=== PATIENT | male | born 1935 | race Caucasian/White ===

== ENCOUNTER → 2018-02-04 10:03 | Outpatient (CLI) | payer MEDICARE, OTHER, SELFPAY ==
[2018-02-04 10:51] LABS: Add Manual Diff / Slide Review NO; Basophils Percent Auto 0.6 % (0-2); Eosinophils Percent Auto 2.4 % (2-4); Hematocrit 39.2 % (41-53); Lymphocytes Percent Auto 19.2 % (25-40); Mean Corpuscular HGB Conc 33.1 % (30-36); Mean Corpuscular Hemoglobin 30.3 PG (26-34); Mean Corpuscular Volume 91.5 fL (80-100); Monocytes Percent Auto 9.8 % (3-14); Neutrophils Absolute Auto 7500 /uL (3000-5900); Platelet Count 247 X10^3/uL (150-400); Red Blood Cell Count 4.29 X10^6/uL (4.5-5.9); Red Cell Distribution Width 13.8 % (11.6-14.8); White Blood Cell Count 11.1 X10^3/uL (4.5-11.0)
[2018-02-04 11:04] LABS: Alanine Aminotransferase 19 IU/L (21-72); Albumin 4.1 g/dL (3.5-5.0); Albumin Globulin Ratio 1.2 (1.0-2.8); Alkaline Phosphatase 60 U/L (38-126); Aspartate Aminotransferase 18 IU/L (17-59); BUN Creatinine Ratio 17.3 (6-22); Bilirubin Total 0.7 mg/dL (0.2-1.3); Blood Urea Nitrogen 19 mg/dL (9-20); Calcium 9.3 mg/dL (8.4-10.2); Carbon Dioxide 29 mmol/L (22-32); Chloride 101 mmol/L (98-107); Cholesterol 141 mg/dL (140-199); Estimated Glomerular Filt Rate > 60.0 mL/min (>60); Globulin 3.5 g/dL (1.7-4.1); Glucose 120 mg/dL (80-110); HDL Cholesterol 38 mg/dL (40-60); HEMOLYSIS < 15 (0-50); LDL Cholesterol Calculated 86 mg/dL (<100); Potassium 4.9 mmol/L (3.4-5.1); Sodium 140 mmol/L (137-145); Total Protein 7.6 g/dL (6.3-8.2); Triglycerides 84 mg/dL (35-150)
[2018-02-04 11:38] LABS: Thyroid Stimulating Hormone 2.81 uIU/mL (0.47-4.68)
== END ==
PROVIDERS: PCP Family Medicine; Visit Provider Family Medicine
DX: E78.2 Mixed hyperlipidemia (principal); I10 Essential (primary) hypertension; N18.3 Chronic kidney disease, stage 3 (moderate)
CPT/HCPCS: 36415; 80053; 80061; 84443; 85025

== ENCOUNTER → 2018-02-25 16:38 | Outpatient (CLI) | payer MEDICARE, OTHER, SELFPAY ==
--- NOTE | 2018-02-25 16:43 | DI.RAD.S_ITS ---
PROCEDURE: XR CHEST 2V INDICATIONS: Shortness of breath TECHNIQUE: 2 views of the chest were acquired. COMPARISON: None. FINDINGS: Surgical changes and devices: Surgical clips project over the mediastinum Lungs and pleura: No pleural effusions or pneumothorax. Bilateral bibasilar, perihilar and diffuse reticular pulmonary opacities are noted, increased from prior exam. There are increased hazy opacities projecting over the right upper lobe and right lung base. There is prominence of the pulmonary vasculature. Mediastinum: Mediastinal contours are normal. Heart size is normal. Bones and chest wall: No acute osseous abnormality. Moderate multilevel degenerative changes of the thoracic spine. IMPRESSION: Findings consistent with mild pulmonary edema. Increased hazy opacities of the right upper lobe and right lung base are favored to represent atelectasis, less likely pneumonia. Dictated by: Carlos Reyes M.D. on 02/25/2018 at 18:22 Approved by: Carlos Reyes M.D. on 02/25/2018 at 18:25
== END ==
PROVIDERS: Family Provider Family Medicine; PCP Family Medicine; Visit Provider Physician Assistant
DX: R06.02 Shortness of breath (principal)
CPT/HCPCS: 71046

== ENCOUNTER → 2019-04-13 09:33 | Outpatient (CLI) | payer MEDICARE, OTHER, SELFPAY ==
[2019-04-13 10:20] LABS: Add Manual Diff / Slide Review NO; Basophils Absolute Auto 100 /uL (0-100); Basophils Percent Auto 0.9 % (0-2); Eosinophils Absolute Auto 300 /uL (0-450); Eosinophils Percent Auto 3.7 % (2-4); Hematocrit 41.5 % (41-53); Lymphocytes Absolute Auto 2000 /uL (1100-4500); Lymphocytes Percent Auto 21.2 % (25-40); Mean Corpuscular HGB Conc 33.8 % (30-36); Mean Corpuscular Hemoglobin 31.7 PG (26-34); Mean Corpuscular Volume 93.8 fL (80-100); Monocytes Absolute Auto 900 /uL (0-900); Monocytes Percent Auto 9.7 % (3-14); Neutrophils Absolute Auto 6100 /uL (1500-7000); Neutrophils Percent Auto 64.5 % (50-75); Platelet Count 217 X10^3/uL (150-400); Red Blood Cell Count 4.43 X10^6/uL (4.5-5.9); Red Cell Distribution Width 13.1 % (11.6-14.8); White Blood Cell Count 9.4 X10^3/uL (4.5-11.0)
[2019-04-13 10:57] LABS: Alanine Aminotransferase 13 IU/L (<50); Albumin 4.1 g/dL (3.5-5.0); Albumin Globulin Ratio 1.2 (1.0-2.8); Alkaline Phosphatase 63 U/L (38-126); Aspartate Aminotransferase 22 IU/L (17-59); Bilirubin Total 0.7 mg/dL (0.2-1.3); Blood Urea Nitrogen 24 mg/dL (9-20); Calcium 9.7 mg/dL (8.4-10.2); Carbon Dioxide 29 mmol/L (22-32); Chloride 98 mmol/L (98-107); Cholesterol 158 mg/dL (140-199); Estimated Glomerular Filt Rate 58.1 mL/min (>60); Globulin 3.3 g/dL (1.7-4.1); Glucose 115 mg/dL (80-110); HDL Cholesterol 48 mg/dL (40-60); HEMOLYSIS < 15 (0-50); LDL Cholesterol Calculated 94 mg/dL (<100); Potassium 5.2 mmol/L (3.4-5.1); Sodium 138 mmol/L (137-145); Total Protein 7.4 g/dL (6.3-8.2); Triglycerides 82 mg/dL (35-150)
[2019-04-13 11:09] LABS: TSH w/ Reflex to FT4 2.69 uIU/mL (0.47-4.68)
== END ==
PROVIDERS: Family Provider Family Medicine; PCP Family Medicine; Referring Provider Family Medicine; Visit Provider Family Medicine
DX: E78.2 Mixed hyperlipidemia (principal); I10 Essential (primary) hypertension; J44.1 Chronic obstructive pulmonary disease with (acute) exacerbation; N18.3 Chronic kidney disease, stage 3 (moderate)
CPT/HCPCS: 36415; 80053; 80061; 84443; 85025

== ENCOUNTER → 2020-05-21 08:27 | Outpatient (CLI) | payer MEDICARE, OTHER, SELFPAY ==
[2020-05-21] MEDS: COVID-19 VACC, Ad26(JANSSEN)/PF 0.5 ML IM (08:35)
== END ==
PROVIDERS: Family Provider Family Medicine; PCP Family Medicine; Visit Provider Internal Medicine
DX: Z23 Encounter for immunization (principal)
CPT/HCPCS: 0031A; 91303

== ENCOUNTER → 2020-12-24 08:25 | Outpatient (CLI) | payer MEDICARE, OTHER, SELFPAY ==
[2020-12-24 11:11] LABS: COVID19 -Nasal RAPID Negative (Negative)
== END ==
PROVIDERS: Family Provider Family Medicine; PCP Family Medicine; Visit Provider Physician Assistant
DX: Z01.812 Encounter for preprocedural laboratory examination (principal); Z20.822 Contact with and (suspected) exposure to COVID-19
CPT/HCPCS: 87635; C9803

== ENCOUNTER 2020-12-25 11:00 | Day surgery (SDC) | payer MEDICARE, OTHER, SELFPAY ==
[2020-12-25 12:57] VITALS: BP 148/73; PULSE 53; RESP 18; TEMP 36.8; O2SAT 98; BMI 38.7
[2020-12-25] MEDS: PROPARACAINE 0.5% OPHTH SOL 2 DROPS EYE-OP (13:07)
[2020-12-25] MEDS: CATARACT EYE COMPOUND (10 DROPS/SYRINGE) 3 DROPS EYE-OP ×3 (13:08→13:16)
--- NOTE | 2020-12-25 13:09 | PM.PREOP ---
Pre-operative Note Interval Note History & Physical reviewed/Exam performed by Physician: Yes Changes to H&P: No
--- NOTE | 2020-12-25 13:10 | PM.OP.1 ---
Operative Date/Time/Diagnoses Pre-op diagnosis: Nuclear Cataract Left eye Post-op diagnosis: same Procedure & Clinicians Same procedure as scheduled: Yes Surgeon: Chao Langford Anesthesia Type: MAC +/- and Sedation Operative Notes Procedure in detail: Patient brought to the operating suite. Tetracaine drops placed in the left eye. Patient was prepped and draped in sterile manner. Wire lid speculum was placed in the eye. Betadine drops were placed on the eye. This was irrigated. Lidocaine jelly was placed on the eye. A paracentesis port was created with a side-port blade. 0.1 mL 1% preservative free lidocaine was injected into the anterior chamber. The anterior chamber was deepened with viscoelastic. 2.6 mm keratome was used to create a temporal clear corneal incision. Cystotome and Utrata forceps were used to create continuous tear capsulorrhexis. Balanced salt solution was used to hydro dissect the nucleus. The phacoemulsification handpiece was inserted and the nucleus was removed using the stop and chop technique. The irrigation aspiration handpiece was inserted and the remaining cortex was removed. Anterior chamber was deepened with viscoelastic. An [place] DIB00 intraocular lens with a power of 22.0 was injected into the capsular bag. Irrigation aspiration handpiece was inserted and the remaining viscoelastic was removed. Incision was hydrated with balanced salt solution and found to be leak free with pressure with Weck-Rosanna sponges. 0.1 mL Vigamox injected anterior chamber. 0.3 mL Kenalog 10 mg was injected subconjunctivally. Lid speculum was removed. The patient left the operating room in excellent condition. Complications: none Post-operative Condition: stable Disposition: same day surgery
[2020-12-25] MEDS: MOXIFLOXACIN INJ 4 MG/0.8 ML VIAL 0.5 MG EYE-OP (13:36)
[2020-12-25] MEDS: HYALURONATE SODIUM 30 MG-10 MG/ML SYRINGES 1 BOX INTRAOCULA (13:36)
[2020-12-25] MEDS: PHENYLEPHRINE/LIDOCAINE VIAL (OR) 0.2 ML EYE-OP (13:38)
[2020-12-25] MEDS: TETRACAINE 0.5% OPHTH DROPS 4 ML 2 DROPS EYE-OP (13:38)
[2020-12-25] MEDS: LIDOCAINE 2% (GLYDO) 6 ML GEL TOP (13:38)
[2020-12-25] MEDS: BALANCED SALT IRRIG SOLN NO.2 500 ML, EPINEPHrine 1 MG IRR (13:39)
[2020-12-25] MEDS: TRIAMCINOLONE 50 MG/5 ML VIAL INJ (13:39)
[2020-12-25 13:56] VITALS: BP 143/63; PULSE 60; RESP 20; TEMP 36.4; O2SAT 97
--- NOTE | 2020-12-25 13:59 | SUR.PHASEII ---
iV IN LEFT HAND DCD SITE CLEAR. pT GIVEN ALL DC INSTRUCTIONS AND VERBALIZES UNDERSTANDING, DENIES PAIN OR NAUSEA, vss, A&O
--- NOTE | 2020-12-25 14:17 | SUR.PHASEII ---
1415-Pt dcd in stable condition with no complaints, VSS, pt has all belongings and dc instructions given and pt verbalizes understanding. Pt up and ambulating gait steady.
== END 2020-12-25 14:15 | disposition home or self-care (01) ==
PROVIDERS: Family Provider Family Medicine; PCP Family Medicine; Referring Provider Ophthalmology; Visit Provider Ophthalmology
PROC: (CPT 66984; principal; 2020-12-25 13:15)
DX: H25.12 Age-related nuclear cataract, left eye (principal); I10 Essential (primary) hypertension; E78.00 Pure hypercholesterolemia, unspecified; J44.9 Chronic obstructive pulmonary disease, unspecified; F17.210 Nicotine dependence, cigarettes, uncomplicated
CPT/HCPCS: 66984; J0171; J2250; J3301

== ENCOUNTER → 2021-01-07 11:33 | Outpatient (CLI) | payer MEDICARE, OTHER, SELFPAY ==
[2021-01-07 14:35] LABS: COVID19 -Nasal RAPID Negative (Negative)
== END ==
PROVIDERS: Family Provider Family Medicine; PCP Family Medicine; Visit Provider Nurse Practitioner Family
DX: Z20.822 Contact with and (suspected) exposure to COVID-19 (principal); Z01.812 Encounter for preprocedural laboratory examination
CPT/HCPCS: 87635; C9803

== ENCOUNTER 2021-01-08 10:11 | Day surgery (SDC) | payer MEDICARE, OTHER, SELFPAY ==
[2021-01-08] MEDS: CATARACT EYE COMPOUND (10 DROPS/SYRINGE) 3 DROPS EYE-OP (10:39)
[2021-01-08] MEDS: PROPARACAINE 0.5% OPHTH SOL 2 DROPS EYE-OP (10:40)
[2021-01-08 10:41] VITALS: BP 156/80; PULSE 57; RESP 16; TEMP 36.8; O2SAT 95; BMI 38.7
--- NOTE | 2021-01-08 11:40 | PM.PREOP ---
Pre-operative Note Interval Note History & Physical reviewed/Exam performed by Physician: Yes Changes to H&P: No
--- NOTE | 2021-01-08 11:41 | PM.OP.1 ---
Operative Date/Time/Diagnoses Pre-op diagnosis: Nuclear cataract right eye Procedure & Clinicians Procedure: Cataract Surgery Same procedure as scheduled: Yes Surgeon: Chao Langford Anesthesia Type: MAC +/- and Sedation Operative Notes Procedure in detail: Patient brought to the operating suite. Tetracaine drops placed in the right eye. Patient was prepped and draped in sterile manner. Wire lid speculum was placed in the eye. Betadine drops were placed on the eye. This was irrigated. Lidocaine jelly was placed on the eye. A paracentesis port was created with a side-port blade. 0.1 mL 1% preservative free lidocaine was injected into the anterior chamber. The anterior chamber was deepened with viscoelastic. 2.6 mm keratome was used to create a temporal clear corneal incision. Cystotome and Utrata forceps were used to create continuous tear capsulorrhexis. Balanced salt solution was used to hydro dissect the nucleus. The phacoemulsification handpiece was inserted and the nucleus was removed using the stop and chop technique. The irrigation aspiration handpiece was inserted and the remaining cortex was removed. Anterior chamber was deepened with viscoelastic. An [place] DIB00 intraocular lens with a power of 22.5 was injected into the capsular bag. Irrigation aspiration handpiece was inserted and the remaining viscoelastic was removed. Incision was hydrated with balanced salt solution and found to be leak free with pressure with Weck-Rosanna sponges. 0.1 mL Vigamox injected anterior chamber. 0.3 mL Kenalog 10 mg was injected subconjunctivally. Lid speculum was removed. The patient left the operating room in excellent condition. Complications: none Post-operative Condition: stable Disposition: same day surgery
[2021-01-08] MEDS: HYALURONATE SODIUM 30 MG-10 MG/ML SYRINGES 1 BOX INTRAOCULA (12:00)
[2021-01-08] MEDS: MOXIFLOXACIN INJ 4 MG/0.8 ML VIAL 0.5 MG EYE-OP (12:00)
[2021-01-08] MEDS: TRIAMCINOLONE 50 MG/5 ML VIAL INJ (12:01)
[2021-01-08] MEDS: TETRACAINE 0.5% OPHTH DROPS 4 ML 2 DROPS EYE-OP (12:01)
[2021-01-08] MEDS: BALANCED SALT IRRIG SOLN NO.2 500 ML, EPINEPHrine 1 MG IRR (12:01)
[2021-01-08] MEDS: PHENYLEPHRINE/LIDOCAINE VIAL (OR) 0.2 ML EYE-OP (12:01)
[2021-01-08] MEDS: LIDOCAINE 2% (GLYDO) 6 ML GEL TOP (12:02)
[2021-01-08 12:17] VITALS: BP 112/73; PULSE 57; RESP 16; TEMP 36.1; O2SAT 97
== END 2021-01-08 12:34 | disposition home or self-care (01) ==
PROVIDERS: Family Provider Family Medicine; PCP Family Medicine; Referring Provider Ophthalmology; Visit Provider Ophthalmology
PROC: (CPT 66984; principal; 2021-01-08 12:15)
DX: H25.11 Age-related nuclear cataract, right eye (principal); I10 Essential (primary) hypertension; J44.9 Chronic obstructive pulmonary disease, unspecified; F17.210 Nicotine dependence, cigarettes, uncomplicated; E66.9 Obesity, unspecified
CPT/HCPCS: 66984; J0171; J2250; J3301

== ENCOUNTER 2021-06-11 08:22 | Inpatient (IN) | payer MEDICARE, OTHER, SELFPAY ==
[2021-06-11] VITALS (12 sets, daily range): BP systolic 114–149; BP diastolic 60–71; PULSE 33–76; RESP 18–26; TEMP 36.4–36.6; O2SAT 78–97; BMI 38.7
--- NOTE | 2021-06-11 08:40 | ED_ITS ---
HPI - SOB/Dyspnea General Chief Complaint: Shortness of Breath/Dyspnea Stated Complaint: Trouble breathing Time Seen by Provider: 06/11/21 08:39 Source: patient and old records reviewed Mode of arrival: Wheelchair Limitations: no limitations History of Present Illness HPI Narrative: This is an 85-year-old male with known COPD, CKD, hypertension and dyslipidemia and prior left lobe upper lobectomy in 2003 who comes emergency department with 10 days of worsening shortness of breath, he has had productive sputum which has gone from his normal clear to green discoloration for the past 5 or 6 days his breathing has gotten even worse. Patient denies fevers or chills. He denies any chest pain or pressure. He states he can normally lie flat on his back but he can typically lie on his left side and read little bit more normally which he states has not changed. He denies any new swelling in his extremities. He denies any diaphoresis. No nausea or vomiting. No new urinary symptoms. He has chronic constipation but has been stooling. He has not had any new medication changes. Patient had a left upper lobectomy in 2003 for lung cancer, he does not have any known cardiac history. Prior cardiac stents. No known drug allergies. He does continue to smoke about 1 pack per day, he drinks 3-5 alcoholic drinks daily, no illicit. He is on aspirin, metoprolol, lisinopril and atorvastatin he uses albuterol and fluticasone inhaled. Used some albuterol this morning which was mildly helpful. His primary care is Dr. Zaman. He does not follow any specialty physicians. Related Data Home Medications Medication Instructions Recorded Confirmed ibuprofen 200 mg tablet 200 mg PO Q8HP #0 04/02/12 02/05/21 aspirin 81 mg chewable tablet 81 mg PO DAILY tab 12/17/17 02/05/21 glucosamine sulfate 500 mg tablet 500 mg PO BID 02/25/18 02/05/21 (Glucosamine) Previous Rx's Medication Instructions Recorded Disabled Parking Permit ea #1 05/06/17 atorvastatin 20 mg tablet (Lipitor) 20 mg PO HS #90 tab 11/29/20 fluticasone 250 mcg-salmeterol 50 See Rx Instructions .ROUTE 11/29/20 mcg/dose blistr powdr for .COMPLEX #60 ea inhalation (Wixela Inhub) lisinopril 40 mg tablet 40 mg PO BID #180 tab 11/29/20 metoprolol tartrate 100 mg tablet 100 mg PO BID #180 tab 11/29/20 (Lopressor) albuterol sulfate 90 mcg/actuation 2 puff INHALATION Q4H #8.5 g 02/05/21 aerosol inhaler (Ventolin HFA) Allergies Allergy/AdvReac Type Severity Reaction Status Date / Time No Known Drug Allergies Allergy Verified 02/05/21 11:27 Review of Systems Review of Systems ROS Unobtainable: All systems reviewed & are unremarkable except as noted in HPI and below Patient History Medical History Chronic back pain (~1959) Gout (~2011) History of urinary incontinence Lung cancer (~2007) Pancreatitis (~2005) Vision disorder Surgical History Anesthesia History of lung surgery (~2007) Family History Father Heart disease Grandmother Age: 81 Ovarian cancer, unspecified laterality Mother Diabetes mellitus Sister No problems noted. Social History marital status: household members: significant other Smoking Status: Current every day smoker alcohol intake: current substance use type: does not use Smoking Status: Current every day smoker alcohol intake frequency: 3 or more drinks per day Substance Use Type: does not use Exam Narrative Exam Narrative: GENERAL: Alert and oriented x three, obese male in moderate distress. HEENT: Head normocephalic, atraumatic, EOMI, pupils reactive, face symmetric, moist mucous membranes NECK: Supple, full range of motion CARDIOVASCULAR: Regular rate and rhythm without murmurs, rubs or gallops. RESPIRATORY: Breath sounds slightly decreased, patient has some mild wheeze on the left, no rales or rhonchi. Mild tachypnea. Patient speaks in 5-6 word sentences. Patient is on nasal cannula but arrived and was 82% on room air initially. ABDOMEN: Soft, nontender. Normoactive bowel sounds all 4 quadrants. No guarding or rebound, rigidity, no mass : No CVA tenderness EXTREMITIES: Normal range of motion, no clubbing or edema in lower extremities. Neurovascularly intact NEUROLOGICAL: Cranial nerves II through XII grossly intact. Moving all extremities SKIN: Warm, dry, no petechiae, no rashes or lesions. Initial Vital Signs Initial Vital Signs: Vital Signs Pulse Rate 33 L 06/11/21 08:28 Pulse Oximetry 78 L 06/11/21 08:28 Course Orders Ordered: Acetaminophen (Acetaminophen 325 Mg Tablet) 650 mg PO Q6HR [facility] Last Admin: 06/11/21 18:13 Dose: 650 mg Documented by: Admin: 06/11/21 12:04 Dose: 650 mg Documented by: KEATON Albuterol (Albuterol 2.5 Mg/3 Ml Neb (Adult)) 2.5 mg INH [id number] PRN PRN Reason: Shortness Of Breath Or Wheezing Albuterol/Ipratropium (Albuterol/Ipratropium 3 Ml Ampul) 3 ml INH [id number] [facility] Last Admin: 06/11/21 17:31 Dose: Not Given Documented by: FLAQUITA Aspirin (Aspirin 81 Mg Chew Tab) 81 mg PO DAILY [facility] Last Admin: 06/11/21 12:04 Dose: 81 mg Documented by: KEATON Atorvastatin Calcium (Atorvastatin 20 Mg Tablet) 20 mg PO BEDTIME [facility] Calcium Carbonate (Calcium Carbonate 500 Mg Tab) 1,000 mg PO Q4HR PRN PRN Reason: Dyspepsia Docusate Sodium (Docusate 100 Mg Capsule) 100 mg PO BID [facility] Enoxaparin Sodium (Enoxaparin 40 Mg/0.4 Ml Syringe) 40 mg SUBCUT DAILY [facility] Last Admin: 06/11/21 12:04 Dose: 40 mg Documented by: KEATON Levofloxacin (Levaquin) 750 mg in 150 mls @ 100 mls/hr IV Q24H [facility] Lisinopril (Lisinopril 20 Mg Tablet) 40 mg PO BID [facility] Methylprednisolone (Methylprednisolone 125 Mg/2 Ml Vial) 60 mg IV BID [facility] Metoprolol Tartrate (Metoprolol Ir 50 Mg Tablet) 100 mg PO BID [facility] Naloxone HCl (Naloxone 0.4 Mg/Ml Vial) 0.2 mg IV Q2MIN PRN PRN Reason: Opiate Reversal Tramadol HCl (Tramadol 50 Mg Tablet) 50 mg PO Q4H PRN PRN Reason: Pain, Moderate (4-6) Discontinued Medications Albuterol/Ipratropium (Albuterol/Ipratropium 3 Ml Ampul) 3 ml INH NOW ONE Stop: 06/11/21 08:53 Last Admin: 06/11/21 09:20 Dose: 3 ml Documented by: CTRMICHAEL Furosemide (Furosemide 100 Mg/10 Ml Vial) 60 mg IV NOW ONE Stop: 06/11/21 09:50 Last Admin: 06/11/21 09:52 Dose: 60 mg Documented by: JUAN CARLOS Furosemide (Furosemide 40 Mg/4 Ml Vial) 40 mg IV NOW ONE Stop: 06/11/21 13:50 Last Admin: 06/11/21 14:08 Dose: 40 mg Documented by: CTRANTONIO Levofloxacin (Levaquin) 750 mg in 150 mls @ 100 mls/hr IV NOW ONE Stop: 06/11/21 11:37 Last Infusion: 06/11/21 12:47 Dose: 0 mls/hr Documented by: Admin: 06/11/21 10:30 Dose: 100 mls/hr Documented by: DON Methylprednisolone (Methylprednisolone 125 Mg/2 Ml Vial) 125 mg IV NOW ONE Stop: 06/11/21 08:53 Last Admin: 06/11/21 09:10 Dose: 125 mg Documented by: ACE Potassium Chloride (Potassium Chloride 20 Meq/15 Ml Udc) 20 meq PO NOW ONE Stop: 06/11/21 13:50 Last Admin: 06/11/21 14:05 Dose: 20 meq Documented by: KEATON Reevaluation(s) Reevaluation #1: Patient feels much better after O2. He did have 1 DuoNeb, some Lasix here in the department continues to feel better E sitting up on the edge of the bed. He would like to return home but discussed he is still requiring oxygen he is agreeable to admission after this. He did note he drinks several alcoholic drinks nightly. He denies any history of withdrawals but we discussed if he has any symptoms to please let us know. Time: 10:00 Consultations Consultation #1: Dr. Jennings accepts for observation discussed will cover him with Levaquin after discussion. Treat with Lasix work on figuring out if he has COPD flare with bronchitis and or CHF. He will see patient in the department. Time: 10:09 Vital Signs Vital signs: Vital Signs - 8 hr 04/05/22 08:28 06/11/21 08:30 06/11/21 08:44 Temperature Pulse Rate 33 L 74 Respiratory Rate Blood Pressure Pulse Oximetry 78 L 84 L 97 06/11/21 08:47 06/11/21 08:54 06/11/21 09:20 Temperature 97.8 F Pulse Rate 66 64 Respiratory Rate 23 26 H Blood Pressure 149/66 H 149/66 H Pulse Oximetry 96 96 94 MDM - SOB/Dyspnea Lab Data Result diagrams: 06/11/21 08:45 06/11/21 08:45 Labs: Lab Results 06/11/21 06/11/21 06/11/21 Range/Units 08:40 08:45 08:45 WBC 16.1 H (4.5-11.0) X10^3/uL RBC 4.25 L (4.5-5.9) X10^6/uL Hgb 13.0 L (13.5-17.5) g/dL Hct 39.4 L (41-53) % MCV 92.6 (80-100) fL MCH 30.7 (26-34) PG MCHC 33.1 (30-36) % RDW 13.4 (11.6-14.8) % Plt Count 245 (150-400) X10^3/uL Neut % (Auto) 81.6 H (50-75) % Lymph % (Auto) 7.4 L (25-40) % [place] % (Auto) 10.3 (3-14) % Eos % (Auto) 0.3 L (2-4) % Baso % (Auto) 0.4 (0-2) % Neut # (Auto) 63124 H (2889-5531) /uL Lymph # (Auto) 1200 (8876-2820) /uL [place] # (Auto) 1700 H (0-900) /uL Eos # (Auto) 0 (0-450) /uL Baso # (Auto) 100 (0-100) /uL PT 13.1 H (10.1-12.7) SECONDS INR 1.2 (0.9-1.3) APTT 30 (26.4-36.2) SECONDS Sodium (137-145) mmol/L Potassium (3.4-5.1) mmol/L Chloride (98-107) mmol/L Carbon Dioxide (22-32) mmol/L BUN (9-20) mg/dL Creatinine (0.66-1.25) mg/dL Estimated GFR (>60) mL/min BUN/Creatinine Ratio (6-22) Glucose (80-110) mg/dL Lactate (0.7-2.1) mmol/L Calcium (8.4-10.2) mg/dL Magnesium (1.6-2.3) mg/dL Total Bilirubin (0.2-1.3) mg/dL AST (17-59) IU/L ALT (<50) IU/L Alkaline Phosphatase (38-126) U/L Total Creatine Kinase (55-170) U/L CK-MB (CK-2) (<2.37) ng/mL CK-MB (CK-2) Rel Index (1.5-5.0) % Troponin I (0.01-0.034) ng/mL NT-Pro-B Natriuret Pep (<450) pg/mL Total Protein (6.3-8.2) g/dL Albumin (3.5-5.0) g/dL Globulin (1.7-4.1) g/dL Albumin/Globulin Ratio (1.0-2.8) Procalcitonin (<0.5) ng/mL SARS-CoV-2 (PCR) Negative (Negative) 06/11/21 06/11/21 06/11/21 Range/Units 08:45 08:45 08:45 WBC (4.5-11.0) X10^3/uL RBC (4.5-5.9) X10^6/uL Hgb (13.5-17.5) g/dL Hct (41-53) % MCV (80-100) fL MCH (26-34) PG MCHC (30-36) % RDW (11.6-14.8) % Plt Count (150-400) X10^3/uL Neut % (Auto) (50-75) % Lymph % (Auto) (25-40) % [place] % (Auto) (3-14) % Eos % (Auto) (2-4) % Baso % (Auto) (0-2) % Neut # (Auto) (2776-9397) /uL Lymph # (Auto) (3446-3016) /uL [place] # (Auto) (0-900) /uL Eos # (Auto) (0-450) /uL Baso # (Auto) (0-100) /uL PT (10.1-12.7) SECONDS INR (0.9-1.3) APTT (26.4-36.2) SECONDS Sodium 138 (137-145) mmol/L Potassium 4.7 (3.4-5.1) mmol/L Chloride 98 (98-107) mmol/L Carbon Dioxide 30 (22-32) mmol/L BUN 33 H (9-20) mg/dL Creatinine 1.46 H (0.66-1.25) mg/dL Estimated GFR 46.1 L (>60) mL/min BUN/Creatinine Ratio 22.6 H (6-22) Glucose 112 H (80-110) mg/dL Lactate 1.3 (0.7-2.1) mmol/L Calcium 9.4 (8.4-10.2) mg/dL Magnesium 1.6 (1.6-2.3) mg/dL Total Bilirubin 1.1 (0.2-1.3) mg/dL AST 26 (17-59) IU/L ALT 13 (<50) IU/L Alkaline Phosphatase 72 (38-126) U/L Total Creatine Kinase 161 (55-170) U/L CK-MB (CK-2) 3.30 H (<2.37) ng/mL CK-MB (CK-2) Rel Index 2.0 (1.5-5.0) % Troponin I < 0.012 (0.01-0.034) ng/mL NT-Pro-B Natriuret Pep 2460 H (<450) pg/mL Total Protein 8.2 (6.3-8.2) g/dL Albumin 4.3 (3.5-5.0) g/dL Globulin 3.9 (1.7-4.1) g/dL Albumin/Globulin Ratio 1.1 (1.0-2.8) Procalcitonin 0.09 (<0.5) ng/mL SARS-CoV-2 (PCR) (Negative) Imaging Data Chest x-ray: Radiologist's Impression: [address] [address] XRay Report Signed Patient: Todd Angel MR#: [id number] : 1935 Acct:[id number] Age/Sex: 85 / M Date of Service: 06/11/21 Loc: ED Accession Number: [id number] ?? Procedure: XR chest 1V Ordering Provider: Tita Lao D.O. PROCEDURE:? XR CHEST 1V ? INDICATIONS:? Short of breath ? TECHNIQUE:? One view of the chest was acquired.? ? COMPARISON:? [facility], CR, CHEST 2 VIEW, 10/29/2015, 13:07.? [facility], CR, CHEST 1 VIEW, 04/25/2016, 12:45.? [facility], CR, XR CHEST 2V, 02/25/2018, 17:06. ? FINDINGS:? ? Surgical changes and devices:? Mediastinal clips are seen. ? Lungs and pleura:? On this semiupright portable chest examination, no large pneumothorax or large pleural effusions are seen.? Mild generalized interstitial prominence can seen. ? Mediastinum:? Mediastinal contours appear normal.? Heart size is moderately enlarged.? Atherosclerotic calcification of the aortic arch is noted.? ? Bones and chest wall:? No suspicious bony lesions.? Age-appropriate bony degenerative changes are seen.? Left shoulder calcific tendinopathy can be seen. ? ? ? IMPRESSION:? Cardiomegaly and interstitial prominence can be seen. Please correlate with patient presentation, physical examination findings, and laboratory values for congestive heart failure. ? ? Postoperative and degenerative changes are seen.? ? ? Dictated by: Moustapha Jeong M.D. on 06/11/2021 at 8:14 ? ? Approved by: Moustapha Jeong M.D. on 06/11/2021 at 8:15 ECG Data Attestation: I personally reviewed and interpreted this ECG as follows: Prior ECG tracings: not available for review Interpretation: Sinus rhythm rate of 72 [place] 194 QRS of 90 and QTC 431. No acute ST elevation or depression noted. MDM Narrative Medical decision making narrative: This is an 85-year-old male comes emergency department with complaint of worsening shortness of breath. Patient has had increasing green productive sputum he does have a white count of 16 but also has some changes on chest x-ray and elevated BNP consistent with CHF. Creatinine although he normally has a slightly decreased GFR. Was hypoxic upon arrival his normal O2 sat is usually low 90s he does not have any home O2. He has been on Lasix in the past but not persistently. He has cardiac and COPD history and patient was given dose of Lasix, syndrome Medrol and DuoNeb in the department. Chest x-ray does not show clear pneumonia but with elevated white count and greenish sputum was covered with antibiotics. Discussed antibiotic choice with primary care they elect for Levaquin. Dr. Jennings his physician accepts for observation. Discharge Plan Departure Patient Disposition: Admitted as Observation Clinical Impression: CHF (congestive heart failure), COPD (chronic obstructive pulmonary disease), Acute respiratory failure with hypoxia Admit Date/Time: 06/11/21 10:09 Admit Provider: Jeffrey Jennings
--- NOTE | 2021-06-11 08:41 | DI.RAD.S_ITS ---
PROCEDURE: XR CHEST 1V INDICATIONS: Short of breath TECHNIQUE: One view of the chest was acquired. COMPARISON: [facility], , CHEST 2 VIEW, 10/29/2015, 13:07. [facility], , CHEST 1 VIEW, 04/25/2016, 12:45. [facility], , XR CHEST 2V, 02/25/2018, 17:06. FINDINGS: Surgical changes and devices: Mediastinal clips are seen. Lungs and pleura: On this semiupright portable chest examination, no large pneumothorax or large pleural effusions are seen. Mild generalized interstitial prominence can seen. Mediastinum: Mediastinal contours appear normal. Heart size is moderately enlarged. Atherosclerotic calcification of the aortic arch is noted. Bones and chest wall: No suspicious bony lesions. Age-appropriate bony degenerative changes are seen. Left shoulder calcific tendinopathy can be seen. IMPRESSION: Cardiomegaly and interstitial prominence can be seen. Please correlate with patient presentation, physical examination findings, and laboratory values for congestive heart failure. Postoperative and degenerative changes are seen. Dictated by: Moustapha Jeong M.D. on 06/11/2021 at 8:14 Approved by: Moustapha Jeong M.D. on 06/11/2021 at 8:15
[2021-06-11 08:56] LABS: Add Manual Diff / Slide Review NO; Basophils Absolute Auto 100 /uL (0-100); Basophils Percent Auto 0.4 % (0-2); Eosinophils Absolute Auto 0 /uL (0-450); Eosinophils Percent Auto 0.3 % (2-4); Hematocrit 39.4 % (41-53); Lymphocytes Absolute Auto 1200 /uL (1100-4500); Lymphocytes Percent Auto 7.4 % (25-40); Mean Corpuscular HGB Conc 33.1 % (30-36); Mean Corpuscular Hemoglobin 30.7 PG (26-34); Mean Corpuscular Volume 92.6 fL (80-100); Monocytes Absolute Auto 1700 /uL (0-900); Monocytes Percent Auto 10.3 % (3-14); Neutrophils Absolute Auto 13100 /uL (1500-7000); Neutrophils Percent Auto 81.6 % (50-75); Platelet Count 245 X10^3/uL (150-400); Red Blood Cell Count 4.25 X10^6/uL (4.5-5.9); Red Cell Distribution Width 13.4 % (11.6-14.8); White Blood Cell Count 16.1 X10^3/uL (4.5-11.0)
[2021-06-11 09:10] LABS: INR 1.2 (0.9-1.3); Prothrombin Time 13.1 SECONDS (10.1-12.7)
[2021-06-11] MEDS: methylPREDNISolone 125 MG/2 ML VIAL IV (09:10)
[2021-06-11 09:13] LABS: PTT Partial Thromboplastin Tim 30 SECONDS (26.4-36.2)
[2021-06-11 09:17] LABS: Creatine Kinase 161 U/L (55-170); Lactate (Lactic Acid) 1.3 mmol/L (0.7-2.1); Magnesium 1.6 mg/dL (1.6-2.3)
[2021-06-11 09:18] LABS: Alanine Aminotransferase 13 IU/L (<50); Albumin 4.3 g/dL (3.5-5.0); Albumin Globulin Ratio 1.1 (1.0-2.8); Alkaline Phosphatase 72 U/L (38-126); Aspartate Aminotransferase 26 IU/L (17-59); BUN Creatinine Ratio 22.6 (6-22); Bilirubin Total 1.1 mg/dL (0.2-1.3); Blood Urea Nitrogen 33 mg/dL (9-20); Calcium 9.4 mg/dL (8.4-10.2); Carbon Dioxide 30 mmol/L (22-32); Chloride 98 mmol/L (98-107); Estimated Glomerular Filt Rate 46.1 mL/min (>60); Globulin 3.9 g/dL (1.7-4.1); Glucose 112 mg/dL (80-110); HEMOLYSIS < 15 (0-50); Potassium 4.7 mmol/L (3.4-5.1); Sodium 138 mmol/L (137-145); Total Protein 8.2 g/dL (6.3-8.2)
[2021-06-11] MEDS: ALBUTEROL/IPRATROPIUM 3 ML AMPUL INH ×2 (09:20→20:30)
[2021-06-11 09:26] LABS: COVID19 -Nasal RAPID Negative (Negative)
[2021-06-11 09:30] LABS: NT-proBNP (BNP-Adult 18+) 2460 pg/mL (<450); Troponin I < 0.012 ng/mL (0.01-0.034)
[2021-06-11 09:35] LABS: Procalcitonin 0.09 ng/mL (<0.5)
[2021-06-11] MEDS: FUROSEMIDE 100 MG/10 ML VIAL 60 MG IV (09:52)
--- NOTE | 2021-06-11 10:27 | P.HP_ITS ---
History of Present Illness History of Present Illness Date Patient Seen: 06/11/21 Time Patient Seen: 11:00 Chief complaint: Trouble breathing Narrative: 85-year-old male with a history of congestive heart failure COPD coronary artery disease lung cancer chronic renal failure hypertension hyperlipidemia and obesity presents to the emergency department with increasing shortness of breath. Patient states his symptoms are chronic in the fact that he is always a little bit of short of breath. He uses an inhaler regularly. Says in the last week his breathing got worse. He was doing a little bit more sitting a little bit more use this inhaler and a lot less activity and walking. He has had increasing cough with productive sputum. Patient always has a cough and productive sputum. Patient does not have any problems with fevers. His cough is not keeping him up at night. He is not feeling lightheaded and dizzy. Patient has not had any chest pain or irregular heartbeat. He feels like he is a little gurgly. Patient has had no problems with the significant lower extremity edema. Says he has been taking his medications regularly. Patient states he drinks anywhere from 3-6 o'clock alcoholic drinks a night. Says he has been eating healthy. He has no problems with urinary urgency or frequency or obstruction and he has had normal bowel movements. Patient History Medical History Chronic back pain (~1959) Gout (~2011) History of urinary incontinence Lung cancer (~2007) Pancreatitis (~2005) Vision disorder Surgical History Anesthesia History of lung surgery (~2007) Family & Social History Family History Father Heart disease Grandmother Age: 81 Ovarian cancer, unspecified laterality Mother Diabetes mellitus Sister No problems noted. Social History: household members significant other,caregiver Safety & Behavioral: Feels Safe in Current Yes Environment Been Physically Hurt or No Threatened By a Person Tobacco & Substance use: Tobacco type cigarettes Smoking Status Current every day smoker alcohol intake current alcohol intake frequency 3 or more drinks per day Substance Use Type does not use Meds Home Medications and Allergies Home Medications Medication Instructions Recorded Confirmed Type ibuprofen 200 mg tablet 200 mg PO Q8HP #0 04/02/12 02/05/21 History Disabled Parking Permit ea #1 05/06/17 02/05/21 Rx aspirin 81 mg chewable tablet 81 mg PO DAILY tab 12/17/17 02/05/21 History glucosamine sulfate 500 mg tablet 500 mg PO BID 02/25/18 02/05/21 History (Glucosamine) atorvastatin 20 mg tablet (Lipitor) 20 mg PO HS #90 tab 11/29/20 02/05/21 Rx fluticasone 250 mcg-salmeterol 50 See Rx Instructions .ROUTE 11/29/20 02/05/21 Rx mcg/dose blistr powdr for .COMPLEX #60 ea inhalation (Wixela Inhub) lisinopril 40 mg tablet 40 mg PO BID #180 tab 11/29/20 02/05/21 Rx metoprolol tartrate 100 mg tablet 100 mg PO BID #180 tab 11/29/20 06/11/21 Rx (Lopressor) albuterol sulfate 90 mcg/actuation 2 puff INHALATION Q4H #8.5 g 02/05/21 02/05/21 Rx aerosol inhaler (Ventolin HFA) Allergies Allergy/AdvReac Type Severity Reaction Status Date / Time No Known Drug Allergies Allergy Verified 02/05/21 11:27 Exam Vital Signs (past 8 hours): - 06/11/21 08:28 06/11/21 08:30 06/11/21 08:44 Temperature Pulse Rate 33 L 74 Respiratory Rate Blood Pressure Pulse Oximetry 78 L 84 L 97 06/11/21 08:47 06/11/21 08:54 06/11/21 09:20 Temperature 97.8 F Pulse Rate 66 64 Respiratory Rate 23 26 H Blood Pressure 149/66 H 149/66 H Pulse Oximetry 96 96 94 Oxygen Delivery Method Nasal Cannula Oxygen Flow Rate 2 Narrative Exam Narrative: Gen.: Alert patient time and place. He rec[facility]nizes [facility] and is aware he is at [facility].. Feels better sitting up in bed because of his shortness of breath. HEENT: Pupils equal round and reactive or mucosa is moist intermittent cough ing. Some redness disc color is a mukherjee to his nose and cheeks possibly rosacea no lymphadenopathy Cardio: S1-S2 systolic murmur present distant heart sounds hard to hear his heart clearly. Due to his rhonchorous breathing Respiratory: Increased work of breathing with rhonchorous coarse breath sounds throughout. Abdomen: Obese. Do not appreciate any organomegaly. No tenderness. Extremities: Warm dry perfused. Trace lower extremity edema. Neurologic: No focal neurological deficits Objective Labs Result Diagrams: 06/12/21 04:22 06/12/21 04:22 Labs: Laboratory Results - last 24 hr 06/11/21 06/11/21 06/11/21 08:40 08:45 08:45 WBC 16.1 H RBC 4.25 L Hgb 13.0 L Hct 39.4 L MCV 92.6 MCH 30.7 MCHC 33.1 RDW 13.4 Plt Count 245 Neut % (Auto) 81.6 H Lymph % (Auto) 7.4 L [place] % (Auto) 10.3 Eos % (Auto) 0.3 L Baso % (Auto) 0.4 Neut # (Auto) 09536 H Lymph # (Auto) 1200 [place] # (Auto) 1700 H Eos # (Auto) 0 Baso # (Auto) 100 PT 13.1 H INR 1.2 APTT 30 Sodium Potassium Chloride Carbon Dioxide BUN Creatinine Estimated GFR BUN/Creatinine Ratio Glucose Lactate Calcium Magnesium Total Bilirubin AST ALT Alkaline Phosphatase Total Creatine Kinase CK-MB (CK-2) CK-MB (CK-2) Rel Index Troponin I NT-Pro-B Natriuret Pep Total Protein Albumin Globulin Albumin/Globulin Ratio Procalcitonin SARS-CoV-2 (PCR) Negative 06/11/21 06/11/21 06/11/21 08:45 08:45 08:45 WBC RBC Hgb Hct MCV MCH MCHC RDW Plt Count Neut % (Auto) Lymph % (Auto) [place] % (Auto) Eos % (Auto) Baso % (Auto) Neut # (Auto) Lymph # (Auto) [place] # (Auto) Eos # (Auto) Baso # (Auto) PT INR APTT Sodium 138 Potassium 4.7 Chloride 98 Carbon Dioxide 30 BUN 33 H Creatinine 1.46 H Estimated GFR 46.1 L BUN/Creatinine Ratio 22.6 H Glucose 112 H Lactate 1.3 Calcium 9.4 Magnesium 1.6 Total Bilirubin 1.1 AST 26 ALT 13 Alkaline Phosphatase 72 Total Creatine Kinase 161 CK-MB (CK-2) 3.30 H CK-MB (CK-2) Rel Index 2.0 Troponin I < 0.012 NT-Pro-B Natriuret Pep 2460 H Total Protein 8.2 Albumin 4.3 Globulin 3.9 Albumin/Globulin Ratio 1.1 Procalcitonin 0.09 SARS-CoV-2 (PCR) Assessment & Plan Assessment and plan (1) COPD (chronic obstructive pulmonary disease): Status: Acute Plan Acute respiratory failure patient presents to the emergency department any acute respiratory failure. When 1st arrival. Patient's sats were 78-80% with a respiratory rate of 30. Patient was placed on oxygen and saturations improved as well as respiratory distress. Patient currently is on nasal cannula oxygen. Is maintaining sats well. He has coarse breath sounds. And mild increased work of breathing. Will work on treating his compounding conditions of acute exacerbation of his chronic bronchitis and congestive heart failure which are contributing factors. COPD with acute exacerbation. Patient has a history of COPD. He is on Wixela and albuterol inhaler. He is having increased productive sputum and has an elevated white blood cell count. He was given a dose of steroids in the emergency department and will continue with his IV steroids. He will be placed on albuterol and dual nebulizers. Per respiratory protocol. He will be started on prophylactic antibiotics with IV Levaquin 750 mg. Will monitor his process an improvement with the antibiotics steroids and inhalers. Acute heart failure. Echocardiogram to assess LV function. I think patient is in acute heart failure. Has elevated BNP. Due to his chronic lung disease it is hard to assess. Think patient also has a component of valvular heart disease as well. Due to his x-ray heart enlargement in the chest x-ray findings. I w ill continue with IV Lasix he was given a dose in the emergency room and will give him a dose here this afternoon. Will monitor closely his electrolytes continue with potassium replacement. Monitor closely his kidney function and urine output. He will be continued on a beta-amilcar and AMIRAH-inhibitor. Acute renal failure patient presents with acute renal failure. Has a baseline normal creatinine. His creatinine is 1.4. Hopefully this will improve as we treat his underlying health conditions of respiratory failure and systolic heart failure. Monitor closely urine output and electrolytes. Coronary artery disease. Patient on a statin and beta-amilcar no acute signs or symptoms at this point with negative cardiac enzymes on admission to the hospital. Essential hypertension. Patient's blood pressure stable continue with beta- amilcar and AMIRAH-inhibitor. DVT prophylaxis ordered Disposition and plan and his pay hospital stay for 2-3 days. Time Spent With Patient Critical Care time: I spent a total of [] minutes of critical care time on this patient's care today; this time is exclusive of procedural time.
[2021-06-11] MEDS: levoFLOXacin 750 MG/150 ML PIGGYBACK 100 MG IV (10:30)
--- NOTE | 2021-06-11 11:26 | DI.ECHO.S_ITS ---
[facility]---------+ [facility] +---------+ : : [address] : : : : [id number] : : : : Phone: [phone]+ Echocardiogram Report + + :Name: ROXI SANDRA Study Date: 06/11/2021 Height: 70 in : :[facility] ReadingLocation: Weight: 270 lb : : Gender: Male BSA: 2.4 m2 : :: 1935 Age: 85 yrs BP: 114/71 mmHg: :Reason For Study: SHORTNESS OF BREATH, ELEVATED BNP : :Ordering Physician: OZIEL, : :ELIZABETH Performed By: Gina Dodge : :Referring: ELIZABETH LUDWIG : + + Interpretation Summary 1) Normal left ventricular size, wall motion, and systolic function (EF 60- 65%). 2) Mildly enlarged right ventricular size with normal function. 3) There is moderate to severe aortic stenosis (valve area 1.2cm2, mean gradient 36mmHg). 4) The right ventricular systolic pressure is estimated to be at least 55 mmHg based on an estimated right atrial pressure of 3 mm Hg. 5) No prior Echo available for comparison. Procedure: A two-dimensional transthoracic echocardiogram with color flow and Doppler was performed. The study quality was technically difficult. A contrast injection of Definity was performed to improve assessment of LV function. There is no prior echocardiogram noted for this patient. The patient was in sinus rhythm with heart rates between 64-68 bpm during the exam. Left Ventricle: The left ventricle is normal in size. There is mild concentric left ventricular hypertrophy. The ejection fraction is estimated to be 60-65%. Left ventricular systolic function appears normal without focal wall motion abnormalities. Right Ventricle: The right ventricle is mildly dilated. The right ventricular systolic function is normal. Atria: The left atrium is severely dilated. Right atrial size is normal. There is no Doppler evidence for an interatrial shunt. Mitral Valve: There is moderate mitral annular calcification. There is mild mitral regurgitation. Aortic Valve: The aortic valve is not well visualized. The peak aortic velocity is 4.0 m/sec. The aortic valve mean gradient is 36 mmHg. There is moderate to severe aortic stenosis. There is mild aortic regurgitation. Tricuspid Valve: The tricuspid valve is not well visualized, but is grossly normal. There is mild tricuspid regurgitation. The right ventricular systolic pressure is estimated to be at least 55 mmHg based on an estimated right atrial pressure of 3 mm Hg. Pulmonic Valve: The pulmonic valve is not well seen, but is grossly normal. Great Vessels: The aortic root is not well visualized. The ascending aorta is at the upper limits of normal in size. The IVC is of normal diameter and collapses greater than 50% with a sniff. This suggests a low right atrial pressure of 3 mm Hg. Pericardium/ Pleura There is no pericardial effusion. There is no pleural effusion. MMode/2D Measurements & Calculations LVIDd: 5.0 cm LVOT diam: 2.3 cm LVIDs: 3.1 cm asc Aorta Diam: 3.9 cm FS: 37.4 % IVSd: 1.3 cm LVPWd: 1.1 cm LV corbin. diameter/BSA (cm/m^2): 2.1 LV sys. diameter/BSA (cm/m^2): 1.3 LA A2 area: 43.2 cm2 RA long axis: 6.8 cm LA A4 area: 31.2 cm2 RA area: 23.5 cm2 LA length (vol): 7.3 cm RA vol: 68.5 ml LA vol: 156.9 ml RA : 28.9 ml/m2 LA vol index: 66.2 ml/m2 IVC diam: 1.8 cm RVD1 (basal): 4.2 cm RVD2 (mid): 4.1 cm TAPSE: 2.6 cm Doppler Measurements & Calculations Ao V2 max: 399.5 cm/sec LVOT Max Johnathan: 114.5 cm/sec Ao V2 mean: 267.1 cm/sec LV V1 max P.2 mmHg Ao max P.7 mmHg LV V1 VTI: 27.6 cm Ao mean P.0 mmHg IRAIDA(I,D): 1.3 cm2 Ao V2 VTI: 87.0 cm IRAIDA(V,D): 1.2 cm2 sev ratio: 0.32 IRAIDA indexed to BSA (cm^2/m^2): 0.56 MV E max johnathan: 110.1 cm/sec TR max johnathan: 360.7 cm/sec MV A max johnathan: 114.7 cm/sec TR max P.0 mmHg MV E/A: 0.96 PA pr(Accel): 29.3 mmHg Med Peak E' Johnathan: 4.6 cm/sec E/E' med: 24.2 Lat Peak E' Johnathan: 9.2 cm/sec E/E' lat: 11.9 E/e' average: 18.0 MV dec time: 0.31 sec SV(LVOT): 115.5 ml Reading Physician:04:57 PM
--- NOTE | 2021-06-11 11:45 | PC.NURSE ---
1120: Pt arrived to room 224 via stretcher from ED. Oriented to unit procedures. Bed locked and in low position. Pt denies complaints, voices no concerns.
[2021-06-11] MEDS: ASPIRIN 81 MG CHEW TAB PO (12:04)
[2021-06-11] MEDS: ACETAMINOPHEN 325 MG TABLET 650 MG PO ×2 (12:04→18:13)
[2021-06-11] MEDS: ENOXAPARIN 40 MG/0.4 ML SYRINGE SUBCUT (12:04)
[2021-06-11 13:17] LABS: Bacteria Urine None Seen; Culture Indicated Urine Cult Not Indicated; RBC Urine 0-1/HPF (0-5/HPF); Squamous Epithelial Cell Urine 0-1 /HPF (0-5/HPF); WBC Urine 0-1/HPF (0-5/HPF)
[2021-06-11] MEDS: POTASSIUM CHLORIDE 20 MEQ/15 ML UDC PO (14:05)
[2021-06-11] MEDS: FUROSEMIDE 40 MG/4 ML VIAL IV (14:08)
--- NOTE | 2021-06-11 14:15 | PT.IIE ---
Surgical History (Last Reviewed 06/11/21 @ 11:28 by Jeffrey Jennings MD) Anesthesia Medical History (Last Reviewed 06/11/21 @ 11:28 by Jeffrey Jennings MD) Chronic back pain (~1959) Gout (~2011) History of urinary incontinence Lung cancer (~2007) Pancreatitis (~2005) Vision disorder Physical Therapy Inpatient Evaluation/Re-Eval M1 PT/OT-IP Prior Functional Status Start: 06/11/21 15:29 Freq: NEEDED Status: Active Protocol: Document 06/11/21 14:15 AB (Rec: 06/11/21 15:39 AB [id number]) Medical Review Prior Functional Status Medical History Reviewed Yes Communication able to make needs known Mobility and Gait pt stated that he is modified independent with all mobilities and ambulation using 4WW indoors and his hurrycane for outdoor mobility Social History Household Members significant other Living Arrangements House Number of Floors (Floors) One Floor Number of Stairs To Enter/Railing? 4 steps R rail ascending to enter the house Home Environment Standard Height Toilet,Walk in Shower,Built-In Shower Seat Home Equipment Four Wheel Walker Additional Social History Comment has a hurrycane M2 PT-IP Current Condition Start: 06/11/21 15:29 Freq: NEEDED Status: Active Protocol: Document 06/11/21 14:15 AB (Rec: 06/11/21 15:39 AB [email or web address]) Physical Therapy Current Condition Current Condition Evaluation Date 06/11/21 Treatment Diagnosis CHF; difficulty in walking Onset Date 06/11/21 M3 PT-IP Subjective Start: 06/11/21 15:29 Freq: NEEDED Status: Active Protocol: Document 06/11/21 14:15 AB (Rec: 06/11/21 15:39 AB [email or web address]) Subjective Physical Therapy Visit Type Type Initial Evaluation Visit Start Time 14:15 Visit Stop Time 14:55 Total Visit Minutes [address] LIGHT SERVICER Visits 0 Physical Therapy Visit Comments Patient Comments agreeable to do PT M4 PT-IP Mobility and Gait Start: 06/11/21 15:29 Freq: NEEDED Status: Active Protocol: Document 06/11/21 14:15 AB (Rec: 06/11/21 15:39 AB [email or web address]) PT-Bed Mobility Assessment Supine to Sit Supine to Sit Standby Assistance Sit to Supine Sit to Supine Standby Assistance PT-Transfer Assessment Sit to and From Stand Sit to and from Stand Contact Guard Assistance,1 Person Assistance,Use of Upper Extremities Equipment Transfer Assistive Device Gait Belt,Front Wheeled Walker Orthotic/Prosthetic Devices or Brace: No Transfers Transfer Destination Chair Transfer Technique ambulated Transfer Ability Level of Assist Contact Guard Assistance Comments Mobility Comments pt sitting on EOB and agreed to do PT. O2 sat with 3L/min O2: 94%. (+) SOB even at rest . completed sit to supine SBA x 2 attempts to elevate LE up the bed. HOB elevated due to difficulty in breathing. completed supine to sit SBA. able to sit on EOB SBA. completed sit to stand CGA and ambulated in room ~10 ft using FWW CGA. pt can be impulsive. presents with unsteady gait with stooped posture. pt stated that he has back problems and unable to stand upright. pt ambulated to the chair. agreed to sit up on the the chair and positioned. O2 sat after ambulation : 91%. call ight and table placed within reach. Gait Assessment Gait Gait Assistance Required: Contact Guard Assist Distance (Feet) 10 Able to Maintain Weight Bearing Status Yes During Gait Assistive Devices Assistive Device Gait Belt,Front Wheeled Walker Orthotic/Prosthetic Devices or Brace: No Gait Deviations General Gait Pattern Decreased Stride Length, Decreased Feet Clearance, Flexed Trunk,Step-to Gait Factors Limiting Gait Function Factors Limiting Gait Function Decreased Activity Tolerance, Decreased Strength,Limited Range of Motion,Poor Balance, Poor Safety Awareness, Respiratory Distress PT-Balance Assessment Sitting Balance and Reactions Static Sitting Balance Ability Good Dynamic Sitting Balance Ability Good Standing Balance and Reactions Static Standing Balance Ability Fair Dynamic Standing Balance Ability Fair Device Used FWW M5 PT-IP Objective Assessments Start: 06/11/21 15:29 Freq: NEEDED Status: Active Protocol: Document 06/11/21 14:15 AB (Rec: 06/11/21 15:39 AB [id number]) Orientation Orientation/Cognition Level of Alertness Alert Orientation Name,Place,Situation Language Function Ability No Deficits Noted,Hard of Hearing Safety Awareness Decreased Safety Awareness Memory Description No Deficits Noted Gross Range of Motion Lower Extremity ROM Assessment Within Functional Limits Strength Lower Extremity Strength Assessment Within Functional Limits Muscle Tone Muscle Tone WNL Yes M6 PT-IP Treatment Start: 06/11/21 15:29 Freq: NEEDED Status: Active Protocol: Document 06/11/21 14:15 AB (Rec: 06/11/21 15:39 AB [email or web address]) Physical Therapy Treatment Education Education Provided Safety M7 PT-IP Assessment and Plan Start: 06/11/21 15:29 Freq: NEEDED Status: Active Protocol: Document 06/11/21 14:15 AB (Rec: 06/11/21 15:39 AB [email or web address]) PT Summary Assessment and Plan Potential Rehabilitation Potential Good Status of Condition at Evaluation Evolving Summary Impairments Pain,ROM,Strength,Balance, Coordination,Sensation,Tone, Cognition,Bed Mobility, Transfers,Gait,Activity Tolerance Assessment Summary pt requiring CGA with mobility using FWW with (+) SOB with O2 sat decreased to 91% with short ambulation. will continue to assess progress. pt stated that his caregiver will be able to assist him. pt may benefit form outpt cardiopulmonary rehab. Goals Bed Mobility Goal Independent Transfer Goal Independent,Front Wheeled Walker Gait Goal Independent,Front Wheel Walker Gait Distance 200 Other Goals ambulation using 4WW/hurrycane SBA 250 ft up/down 4 steps R rail ascending SBA Days to Meet Goals 10 Frequency of Treatment Frequency Of Treatment Once a Day Treatment Plan Physical Therapy Treatment Plan Bed Mobility Training,Transfer Training,Gait Training, Therapeutic Exercise,Balance Retraining,Discharge Planning, Hot or Cold Pack,Neuromuscular Re-ed,Coordination Retraining Precautions Other Precautions O2 sat Recommendations To Nursing Amount of Assist Needed 1 Person Assist Discharge Recommendations PT Discharge Recommendations Home with Assistance, Outpatient PT Transportation Needs at Discharge Private Vehicle,Wheelchair/ Cabulance
[2021-06-11] MEDS: lisinopriL 20 MG TABLET 40 MG PO (21:19)
[2021-06-11] MEDS: METOPROLOL IR 50 MG TABLET 100 MG PO (21:19)
[2021-06-11] MEDS: DOCUSATE 100 MG CAPSULE PO (21:27)
[2021-06-11] MEDS: methylPREDNISolone 125 MG/2 ML VIAL 60 MG IV (21:27)
[2021-06-11] MEDS: ATORVASTATIN 20 MG TABLET PO (21:27)
--- NOTE | 2021-06-11 23:47 | PC.NURSE ---
Patient states that overall he is feeling much better. States that he is less short of breath and is coughing less. Patient is has some shortness of breath with excessive talking. Occasional productive cough. Anterior morrow with coarse rhonchi. Posterior morrow diminished. O2 2L sats 93-95%.
[2021-06-12] VITALS (18 sets, daily range): BP systolic 101–152; BP diastolic 48–90; PULSE 66–89; RESP 18–24; TEMP 35.9–36.9; O2SAT 87–96
[2021-06-12 04:38] LABS: INR 1.3 (0.9-1.3); Prothrombin Time 14.3 SECONDS (10.1-12.7)
[2021-06-12 04:39] LABS: Add Manual Diff / Slide Review NO; Basophils Absolute Auto 0 /uL (0-100); Basophils Percent Auto 0.3 % (0-2); Eosinophils Absolute Auto 0 /uL (0-450); Hematocrit 36.4 % (41-53); Lymphocytes Absolute Auto 500 /uL (1100-4500); Lymphocytes Percent Auto 4.4 % (25-40); Mean Corpuscular HGB Conc 33.1 % (30-36); Mean Corpuscular Hemoglobin 30.4 PG (26-34); Mean Corpuscular Volume 91.8 fL (80-100); Monocytes Absolute Auto 300 /uL (0-900); Monocytes Percent Auto 2.3 % (3-14); Neutrophils Absolute Auto 11700 /uL (1500-7000); Platelet Count 238 X10^3/uL (150-400); Red Blood Cell Count 3.96 X10^6/uL (4.5-5.9); Red Cell Distribution Width 13.3 % (11.6-14.8); White Blood Cell Count 12.5 X10^3/uL (4.5-11.0)
[2021-06-12 04:43] LABS: Alanine Aminotransferase 12 IU/L (<50); Albumin 3.8 g/dL (3.5-5.0); Alkaline Phosphatase 55 U/L (38-126); Aspartate Aminotransferase 21 IU/L (17-59); BUN Creatinine Ratio 29.6 (6-22); Bilirubin Total 0.5 mg/dL (0.2-1.3); Blood Urea Nitrogen 47 mg/dL (9-20); Carbon Dioxide 28 mmol/L (22-32); Chloride 98 mmol/L (98-107); Estimated Glomerular Filt Rate 41.8 mL/min (>60); Globulin 3.8 g/dL (1.7-4.1); Glucose 171 mg/dL (80-110); HEMOLYSIS < 15 (0-50); Potassium 5.1 mmol/L (3.4-5.1); Sodium 136 mmol/L (137-145); Total Protein 7.6 g/dL (6.3-8.2)
[2021-06-12 04:44] LABS: Magnesium 1.6 mg/dL (1.6-2.3)
--- NOTE | 2021-06-12 07:42 | P.PN_ITS ---
Subjective Subjective Date Patient Seen: 06/12/21 Time Patient Seen: 07:42 Interval history: Patient seen and evaluated this morning. Says he did not sleep well last night. Uncomfortable bed. Coughing a little bit less. Little less shortness of breath and respiratory distress. Oxygen status is stable. Tolerating IV steroids and IV antibiotics. Blood sugar little bit high this morning. A little bit of tremor in his hand. Says he is ready to go home. Not much of an appetite he says. Able to walk. Has not had a bowel movement for a couple of days. Lives at home by himself has a caregiver that comes in and checks on him. Exam Vital Signs (past 8 hours): - 06/12/21 00:00 06/12/21 00:48 06/12/21 02:00 Temperature 96.7 F L Pulse Rate 66 Respiratory Rate 20 Blood Pressure 146/63 H Pulse Oximetry 96 96 96 06/12/21 03:38 06/12/21 04:00 Temperature 97.9 F Pulse Rate 70 Respiratory Rate 18 Blood Pressure 152/75 H Pulse Oximetry 96 96 Oxygen Delivery Method Nasal Cannula Oxygen Flow Rate 2 Narrative Exam Narrative: Gen.: Alert good historian. Some mild hand tremors. HEENT: Pupils equal round and reactive or mucosa is moist. She neck is supple Cardio: S1-S2 regular rate and rhythm heart sounds distant systolic murmur present Respiratory: Improved aeration over yesterday less rhonchorous. Still some rhonchi present in both lung morrow. Abdomen: Soft obese nontender Extremities: Minimal edema warm dry perfused Neurologic: No focal neurological deficits Objective Labs Result Diagrams: 06/12/21 04:22 06/12/21 04:22 Labs: Laboratory Results - last 24 hr 06/11/21 06/11/21 06/11/21 08:40 08:45 08:45 WBC 16.1 H RBC 4.25 L Hgb 13.0 L Hct 39.4 L MCV 92.6 MCH 30.7 MCHC 33.1 RDW 13.4 Plt Count 245 Neut % (Auto) 81.6 H Lymph % (Auto) 7.4 L [place] % (Auto) 10.3 Eos % (Auto) 0.3 L Baso % (Auto) 0.4 Neut # (Auto) 39367 H Lymph # (Auto) 1200 [place] # (Auto) 1700 H Eos # (Auto) 0 Baso # (Auto) 100 PT 13.1 H INR 1.2 APTT 30 Sodium Potassium Chloride Carbon Dioxide BUN Creatinine Estimated GFR BUN/Creatinine Ratio Glucose Lactate Calcium Magnesium Total Bilirubin AST ALT Alkaline Phosphatase Total Creatine Kinase CK-MB (CK-2) CK-MB (CK-2) Rel Index Troponin I NT-Pro-B Natriuret Pep Total Protein Albumin Globulin Albumin/Globulin Ratio Procalcitonin Urine RBC Urine WBC Ur Squamous Epith Cells Urine Bacteria Ur Culture Indicated? SARS-CoV-2 (PCR) Negative 06/11/21 06/11/21 06/11/21 08:45 08:45 08:45 WBC RBC Hgb Hct MCV MCH MCHC RDW Plt Count Neut % (Auto) Lymph % (Auto) [place] % (Auto) Eos % (Auto) Baso % (Auto) Neut # (Auto) Lymph # (Auto) [place] # (Auto) Eos # (Auto) Baso # (Auto) PT INR APTT Sodium 138 Potassium 4.7 Chloride 98 Carbon Dioxide 30 BUN 33 H Creatinine 1.46 H Estimated GFR 46.1 L BUN/Creatinine Ratio 22.6 H Glucose 112 H Lactate 1.3 Calcium 9.4 Magnesium 1.6 Total Bilirubin 1.1 AST 26 ALT 13 Alkaline Phosphatase 72 Total Creatine Kinase 161 CK-MB (CK-2) 3.30 H CK-MB (CK-2) Rel Index 2.0 Troponin I < 0.012 NT-Pro-B Natriuret Pep 2460 H Total Protein 8.2 Albumin 4.3 Globulin 3.9 Albumin/Globulin Ratio 1.1 Procalcitonin 0.09 Urine RBC Urine WBC Ur Squamous Epith Cells Urine Bacteria Ur Culture Indicated? SARS-CoV-2 (PCR) 06/11/21 06/12/21 06/12/21 10:50 04:22 04:22 WBC 12.5 H RBC 3.96 L Hgb 12.0 L Hct 36.4 L MCV 91.8 MCH 30.4 MCHC 33.1 RDW 13.3 Plt Count 238 Neut % (Auto) 93.0 H Lymph % (Auto) 4.4 L [place] % (Auto) 2.3 L Eos % (Auto) 0.0 L Baso % (Auto) 0.3 Neut # (Auto) 70343 H Lymph # (Auto) 500 L [place] # (Auto) 300 Eos # (Auto) 0 Baso # (Auto) 0 PT INR APTT Sodium Potassium Chloride Carbon Dioxide BUN Creatinine Estimated GFR BUN/Creatinine Ratio Glucose Lactate Calcium Magnesium 1.6 Total Bilirubin AST ALT Alkaline Phosphatase Total Creatine Kinase CK-MB (CK-2) CK-MB (CK-2) Rel Index Troponin I NT-Pro-B Natriuret Pep Total Protein Albumin Globulin Albumin/Globulin Ratio Procalcitonin Urine RBC 0-1/hpf Urine WBC 0-1/hpf Ur Squamous Epith Cells 0-1 /hpf Urine Bacteria None seen Ur Culture Indicated? Cult not indicated SARS-CoV-2 (PCR) 06/12/21 06/12/21 04:22 04:22 WBC RBC Hgb Hct MCV MCH MCHC RDW Plt Count Neut % (Auto) Lymph % (Auto) [place] % (Auto) Eos % (Auto) Baso % (Auto) Neut # (Auto) Lymph # (Auto) [place] # (Auto) Eos # (Auto) Baso # (Auto) PT 14.3 H INR 1.3 APTT Sodium 136 L Potassium 5.1 Chloride 98 Carbon Dioxide 28 BUN 47 H Creatinine 1.59 H Estimated GFR 41.8 L BUN/Creatinine Ratio 29.6 H Glucose 171 H Lactate Calcium 9.0 Magnesium Total Bilirubin 0.5 AST 21 ALT 12 Alkaline Phosphatase 55 Total Creatine Kinase CK-MB (CK-2) CK-MB (CK-2) Rel Index Troponin I NT-Pro-B Natriuret Pep Total Protein 7.6 Albumin 3.8 Globulin 3.8 Albumin/Globulin Ratio 1.0 Procalcitonin Urine RBC Urine WBC Ur Squamous Epith Cells Urine Bacteria Ur Culture Indicated? SARS-CoV-2 (PCR) [facility] Medical History Chronic back pain (~1959) Gout (~2011) History of urinary incontinence Lung cancer (~2007) Pancreatitis (~2005) Vision disorder Surgical History Anesthesia History of lung surgery (~2007) Family History Father Heart disease Grandmother Age: 81 Ovarian cancer, unspecified laterality Mother Diabetes mellitus Sister No problems noted. Social History marital status: household members: significant other Smoking Status: Current every day smoker alcohol intake: current substance use type: does not use Assessment & Plan Assessment and plan (1) COPD (chronic obstructive pulmonary disease): Status: Acute Plan Acute respiratory failure. Patient respiratory is improved today. On oxygen and treatment of his underlying COPD. I think patient has more of a COPD exacerbation as opposed heart failure exacerbation. He was given a couple doses of Lasix. He has definitely improved from an oxygen standpoint aeration standpoint his lungs sound clear. Continue with treatment of underlying diso rder that is causing respiratory failure. COPD with acute exacerbation.? Patient with acute exacerbation of chronic lung disease. White blood cell counts improved. He is on IV Levaquin and IV stero ids oxygen and inhalers. Says his cough is improved today sputum production is also improved. Anticipate patient needing home O2. Will work with this on discharge. Will continue with 24 more hours of IV steroids in and antibiotics. Sputum culture pending at this point. Heart failure with preserved ejection fraction. Patient with acute heart failure with exacerbation due to underlying chronic lung disease. His ejection fraction is fairly normal on echo echocardiogram. His echocardiogram shows moderate to severe aortic stenosis which certainly is potential problem in cause. Will continue with his beta-amilcar AMIRAH-inhibitor. He got 2 doses of Lasix yesterday. Will hold off on further diuresis at this point. His I think he sufficiently euvolemic. Acute kidney injury. Patient with acute kidney injury which is slightly worsened over yesterday. I think this is partly due to diuresis. His creatinine is moderately worse. His electrolytes are normal. Will hold off on further diuresis at this point monitor closely his kidney function and electrolytes. Anticipate this to improve his he hydrates orally and is we get his lungs working better. Coronary artery disease.? Chronic. No acute current underlying symptoms. Continue with beta-amilcar statin and aspirin. Essential hypertension.? Patient's blood pressure stable continue with beta- amilcar and AMIRAH-inhibitor. Alcohol misuse disorder. Patient states he drinks anywhere from 3-6 alcoholic beverages at night. Will provide as needed lorazepam if needed for anxiety and tremors. DVT prophylaxis ordered Disposition and plan home tomorrow with home oxygen therapy home antibiotics and home steroids. Time Spent With Patient Critical Care time: I spent a total of [] minutes of critical care time on this patient's care today; this time is exclusive of procedural time. Quality VTE Deep Vein Thrombosis/Pulmonary Embolism Present on Admission: No
[2021-06-12] MEDS: ASPIRIN 81 MG CHEW TAB PO (09:10)
[2021-06-12] MEDS: METOPROLOL IR 50 MG TABLET 100 MG PO ×2 (09:10→20:18)
[2021-06-12] MEDS: lisinopriL 20 MG TABLET 40 MG PO ×2 (09:10→20:18)
[2021-06-12] MEDS: levoFLOXacin 750 MG/150 ML PIGGYBACK 100 MG IV (09:10)
[2021-06-12] MEDS: DOCUSATE 100 MG CAPSULE PO ×2 (09:10→20:18)
[2021-06-12] MEDS: ENOXAPARIN 40 MG/0.4 ML SYRINGE SUBCUT (09:11)
[2021-06-12] MEDS: methylPREDNISolone 125 MG/2 ML VIAL 60 MG IV ×2 (09:11→20:19)
[2021-06-12] MEDS: LORazepam 0.5 MG TABLET PO (09:11)
[2021-06-12] MEDS: ALBUTEROL/IPRATROPIUM 3 ML AMPUL INH ×2 (11:13→19:22)
--- NOTE | 2021-06-12 11:57 | PT.IPTN ---
Current Diagnoses Chronic obstructive pulmonary disease, unspecified (06/11/21) Physical Therapy Treatment Note M2 PT-IP Current Condition Start: 06/11/21 15:29 Freq: NEEDED Status: Active Protocol: Document 06/11/21 14:15 AB (Rec: 06/11/21 15:39 AB [id number]) Physical Therapy Current Condition Current Condition Evaluation Date 06/11/21 Treatment Diagnosis CHF; difficulty in walking Onset Date 06/11/21 M3 PT-IP Subjective Start: 06/11/21 15:29 Freq: NEEDED Status: Active Protocol: Document 06/12/21 11:29 KS (Rec: 06/12/21 12:38 KS [id number]) Subjective Physical Therapy Visit Type Type Treatment Note Visit Start Time 11:29 Visit Stop Time 11:57 Total Visit Minutes 28 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 of 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 1 Physical Therapy Visit Comments Patient Comments agreeable to do PT M4 PT-IP Mobility and Gait Start: 06/11/21 15:29 Freq: NEEDED Status: Active Protocol: Document 06/12/21 11:29 KS (Rec: 06/12/21 12:38 KS [id number]) PT-Transfer Assessment Sit to and From Stand Sit to and from Stand Contact Guard Assistance,1 Person Assistance,Use of Upper Extremities Equipment Transfer Assistive Device Gait Belt,Front Wheeled Walker Orthotic/Prosthetic Devices or Brace: No Transfers Transfer Destination Bed Transfer Technique ambulated Transfer Ability Level of Assist Contact Guard Assistance Comments Mobility Comments Pt sitting EOB upon arrival, RT arrived shortly after. Pt on RA at ~91%. Pt sit<>stand w / FWW CGA and performed marching in place for ~20 seconds. His O2 desat to 87% and pt reporte dback pain and requested to sit back down. Pt had labored breathing but was able to recover to 93% and required a few minutes to rest . Pt then sit<>stand CGA and ambulated ~30 ft w/ FWW CGA and returned back to bed. Pt w / flexed trunk during ambulation. Upon return to bed , pts O2 dropped to 84% and pt had labored breathing/SOB and RT applied 1L O2. Pt increased to 89%-90% and pt requested to be left sitting EOB w/ all needs in reach. Gait Assessment Gait Gait Assistance Required: Contact Guard Assist Distance (Feet) 30 Able to Maintain Weight Bearing Status Yes During Gait Assistive Devices Assistive Device Gait Belt,Front Wheeled Walker Orthotic/Prosthetic Devices or Brace: No Gait Deviations General Gait Pattern Decreased Stride Length, Decreased Feet Clearance, Flexed Trunk,Step-to Gait Factors Limiting Gait Function Factors Limiting Gait Function Decreased Activity Tolerance, Decreased Strength,Limited Range of Motion,Poor Balance, Poor Safety Awareness, Respiratory Distress Comments Gait Comments Please refer to mobility section for details. PT-Balance Assessment Sitting Balance and Reactions Static Sitting Balance Ability Good Dynamic Sitting Balance Ability Good Standing Balance and Reactions Static Standing Balance Ability Fair Dynamic Standing Balance Ability Fair Device Used FWW M5 PT-IP Objective Assessments Start: 06/11/21 15:29 Freq: NEEDED Status: Active Protocol: Document 06/11/21 14:15 AB (Rec: 06/11/21 15:39 AB [id number]) Orientation Orientation/Cognition Level of Alertness Alert Orientation Name,Place,Situation Language Function Ability No Deficits Noted,Hard of Hearing Safety Awareness Decreased Safety Awareness Memory Description No Deficits Noted Gross Range of Motion Lower Extremity ROM Assessment Within Functional Limits Strength Lower Extremity Strength Assessment Within Functional Limits Muscle Tone Muscle Tone WNL Yes M6 PT-IP Treatment Start: 06/11/21 15:29 Freq: NEEDED Status: Active Protocol: Document 06/12/21 11:29 KS (Rec: 06/12/21 12:38 KS [id number]) Physical Therapy Treatment Education Education Provided Safety M7 PT-IP Assessment and Plan Start: 06/11/21 15:29 Freq: NEEDED Status: Active Protocol: Document 06/12/21 11:29 KS (Rec: 06/12/21 12:38 KS [id number]) PT Summary Assessment and Plan Potential Rehabilitation Potential Good Status of Condition at Evaluation Evolving Summary Impairments Pain,ROM,Strength,Balance, Coordination,Sensation,Tone, Cognition,Bed Mobility, Transfers,Gait,Activity Tolerance Assessment Summary Pt continues to require CGA for ambulation w/ FWW. He is limited by SOB and low tolerance for activity. Desat to 84% following 30 ft ambulation w/ FWW requiring 1L to recover. Will continue to progress pt, but may benefit from cardiopulmonary rehab and home O2 as discussed w/ RT. Goals Bed Mobility Goal Independent Transfer Goal Independent,Front Wheeled Walker Gait Goal Independent,Front Wheel Walker Gait Distance 200 Other Goals ambulation using 4WW/hurrycane SBA 250 ft up/down 4 steps R rail ascending SBA Days to Meet Goals 10 Frequency of Treatment Frequency Of Treatment Once a Day Treatment Plan Physical Therapy Treatment Plan Bed Mobility Training,Transfer Training,Gait Training, Therapeutic Exercise,Balance Retraining,Discharge Planning, Hot or Cold Pack,Neuromuscular Re-ed,Coordination Retraining Precautions Other Precautions O2 sat Recommendations To Nursing Amount of Assist Needed 1 Person Assist Discharge Recommendations PT Discharge Recommendations Home with Assistance, Outpatient PT Transportation Needs at Discharge Private Vehicle,Wheelchair/ Cabulance
--- NOTE | 2021-06-12 16:23 | CM.IDA ---
Initial DCP Assessment Note Pt is a 85 yo male, resident [facility], arrives w/ SOB and admitted for medical management of Acute respiratory failure COPD with acute exacerbation Heart failure with preserved ejection fraction Acute kidney injury PCP:Jeffrey Jennings Payer: JENA/Jocelin Reviewed chart, pt discussed in multidisciplinary rounds this morning. Therapy has cleared pt for return home w/family to assist and pt has planned for home, patient lives w/ S.O. and has a cg that assists (schedule?) Patient mostly indp at baseline, uses a FWW for outdoor chores, does complain of decrease in activity tolerance PT suggests return home, likely w/ Home O2 per provider/RT's order, and close f/u at the cardiopulmonary rehab if patient agreeable to such No needs expected from DC planning team although will remain available in case this changes before DC. ALYSHA Amanda Discharge Planning/Care Management CM Discharge Assessment Start: 06/12/21 16:16 Freq: Status: Active Protocol: Document 06/12/21 16:16 FRAN (Rec: 06/12/21 16:23 FRAN [id number]) Discharge Planning Assessment Assigned Rubber Chemist ALYSHA Smith DPOA/Assigned Designee Name Opal Shea dtr Contact Information [phone] Advance Directives? Yes Advance Directives on File Yes History Provided By Patient,Significant Other, Medical Record Prior Living Arrangements House Household Members significant other Type of transporation used prior to Relies on Others admit Independent with ADL's Yes Is patient alert and oriented? Yes Needs Assistance With Home Chores / Shopping Barriers to Discharge No Comment Home w/S.O. and outpatient PT, good candidate for cardiopulmonary rehab and home O2 per notes Discharge Plan Home Transportation Arrangement S.O./family Referrals Initiated None needed
[2021-06-12] MEDS: SODIUM CHLORIDE 0.9% FLUSH 10 ML IV (20:18)
[2021-06-12] MEDS: ATORVASTATIN 20 MG TABLET PO (20:18)
[2021-06-13] VITALS (10 sets, daily range): BP systolic 114–139; BP diastolic 43–63; PULSE 64–68; RESP 16–19; TEMP 36.1–36.5; O2SAT 92–99
[2021-06-13 05:48] LABS: Add Manual Diff / Slide Review NO; Basophils Absolute Auto 0 /uL (0-100); Basophils Percent Auto 0.1 % (0-2); Eosinophils Absolute Auto 0 /uL (0-450); Hematocrit 36.3 % (41-53); Lymphocytes Absolute Auto 800 /uL (1100-4500); Lymphocytes Percent Auto 5.7 % (25-40); Mean Corpuscular HGB Conc 33.2 % (30-36); Mean Corpuscular Hemoglobin 30.6 PG (26-34); Mean Corpuscular Volume 92.4 fL (80-100); Monocytes Absolute Auto 400 /uL (0-900); Monocytes Percent Auto 2.8 % (3-14); Neutrophils Absolute Auto 12500 /uL (1500-7000); Neutrophils Percent Auto 91.4 % (50-75); Platelet Count 264 X10^3/uL (150-400); Red Blood Cell Count 3.93 X10^6/uL (4.5-5.9); White Blood Cell Count 13.6 X10^3/uL (4.5-11.0)
[2021-06-13 05:52] LABS: BUN Creatinine Ratio 39.3 (6-22); Blood Urea Nitrogen 53 mg/dL (9-20); Calcium 9.2 mg/dL (8.4-10.2); Carbon Dioxide 27 mmol/L (22-32); Chloride 100 mmol/L (98-107); Estimated Glomerular Filt Rate 50.5 mL/min (>60); Glucose 184 mg/dL (80-110); HEMOLYSIS < 15 (0-50); Potassium 5.2 mmol/L (3.4-5.1); Sodium 136 mmol/L (137-145)
[2021-06-13] MEDS: ALBUTEROL/IPRATROPIUM 3 ML AMPUL INH ×2 (07:51→13:43)
--- NOTE | 2021-06-13 08:04 | PM.DS.1 ---
History of Present Illness History of Present Illness Chief complaint: Trouble breathing Narrative: 85-year-old male with a history of congestive heart failure COPD coronary artery disease lung cancer chronic renal failure hypertension hyperlipidemia and obesity presents to the emergency department with increasing shortness of breath. Patient states his symptoms are chronic in the fact that he is always a little bit of short of breath. He uses an inhaler regularly. Says in the last week his breathing got worse. He was doing a little bit more sitting a little bit more use this inhaler and a lot less activity and walking. He has had increasing cough with productive sputum. Patient always has a cough and productive sputum. Patient does not have any problems with fevers. His cough is not keeping him up at night. He is not feeling lightheaded and dizzy. Patient has not had any chest pain or irregular heartbeat. He feels like he is a little gurgly. Patient has had no problems with the significant lower extremity edema. Says he has been taking his medications regularly. Patient states he drinks anywhere from 3-6 o'clock alcoholic drinks a night. Says he has been eating healthy. He has no problems with urinary urgency or frequency or obstruction and he has had normal bowel movements. Discharge Providers Provider Date of admission: 06/11/21 10:09 Discharge Date: 06/13/21 Primary care physician: Jeffrey Jennings MD Consults: 06/11/21 08:40 Consult to Respiratory Therapy Evaluate & Treat Comment: Physician Instructions: Evaluate and treat 06/11/21 11:18 Consult to Discharge Planning Routine Comment: Consult to Physical Therapy Evaluate & Treat Comment: Physician Instructions: Evaluate and Treat Discharge provider: Jeffrey Jennings MD Summary Hospital Course Discharge Diagnosis: Acute respiratory failure COPD with acute exacerbation Acute diastolic congestive heart failure Acute kidney injury Coronary artery disease chronic stable Essential hypertension Hyperlipidemia Alcohol use disorder Hospital Course: 85-year-old gentleman admitted to the hospital with respiratory failure. Patient has a history of COPD. Patient was admitted with IV antibiotics and IV steroids. During hospital stay patient had improvement of his oxygenation with oxygen. Patient improvement of aeration and improvement of cough congestion with that as antibiotics. Patient at the time of discharge was a chronic stable state. Patient was requiring oxygen to maintain sats between 88 and 92. Patient had home O2 arranged. Patient will need continued home oxygen therapy. Patient will be continued on an additional 7 days of antibiotics and tapering doses of oral steroids. Acute kidney injury. Patient was initially provided some diuresis due to concerns for congestive heart failure. His kidney function went up and then was coming down to baseline. Electrolytes were normal he had a mildly elevated potassium at the time of discharge. COPD. Patient was placed on nebulizers IV steroids as well as IV antibiotics. Patient had improvement of symptoms at the time of discharge. He will be discharged on home O2 Heart failure with preserved ejection fraction. Patient had an enlarged heart. Due to underlying COPD and concerns of respiratory status elevated BNP enlarged heart on chest x-ray and chest x-ray signs for heart failure patient initially was diuresed with some IV Lasix. Patient had improvement of respiratory status and IV Lasix was stopped. Patient is on a beta-amilcar and AMIRAH-inhibitor and will be continued this on home without the use of a diuretics at home. Discharge plan today follow-up in 7-10 days. Patient will require home O2. [facility]iotics [facility] to [facility] Exam Vital Signs (past 8 hours): - 06/13/21 01:00 06/13/21 04:00 Temperature 97.5 F L Pulse Rate 64 Respiratory Rate 18 Blood Pressure 121/63 Pulse Oximetry 92 99 Oxygen Delivery Method Nasal Cannula Oxygen Flow Rate 2 Objective Labs Result Diagrams: 06/13/21 05:03 06/13/21 05:03 Labs: Laboratory Results - last 24 hr 06/13/21 06/13/21 05:03 05:03 WBC 13.6 H RBC 3.93 L Hgb 12.0 L Hct 36.3 L MCV 92.4 MCH 30.6 MCHC 33.2 RDW 13.0 Plt Count 264 Neut % (Auto) 91.4 H Lymph % (Auto) 5.7 L [place] % (Auto) 2.8 L Eos % (Auto) 0.0 L Baso % (Auto) 0.1 Neut # (Auto) 49870 H Lymph # (Auto) 800 L [place] # (Auto) 400 Eos # (Auto) 0 Baso # (Auto) 0 Sodium 136 L Potassium 5.2 H Chloride 100 Carbon Dioxide 27 BUN 53 H Creatinine 1.35 H Estimated GFR 50.5 L BUN/Creatinine Ratio 39.3 H Glucose 184 H Calcium 9.2 PFSH Medical History Chronic back pain (~1959) Gout (~2011) History of urinary incontinence Lung cancer (~2007) Pancreatitis (~2005) Vision disorder Surgical History Anesthesia History of lung surgery (~2007) Family History Father Heart disease Grandmother Age: 81 Ovarian cancer, unspecified laterality Mother Diabetes mellitus Sister No problems noted. Social History marital status: household members: significant other Smoking Status: Current every day smoker alcohol intake: current substance use type: does not use Discharge Plan Discharge Plan Patient Disposition: Home Provider Discharge Comment: needs Home O2 and a f/u in 10 days Discharge orders & Medications Prescriptions: New levofloxacin 500 mg tablet 500 mg PO DAILY Qty: 7 0RF prednisone 20 mg tablet See Rx Instructions .ROUTE .COMPLEX Qty: 40 0RF Rx Instructions: 60 mg for 5 days 40 mg for 5 days 20 mg for 5 days 10 mg for 5 days Continued lisinopril 40 mg tablet 40 mg PO BID Qty: 180 3RF atorvastatin [Lipitor] 20 mg tablet 20 mg PO HS Qty: 90 3RF metoprolol tartrate [Lopressor] 100 mg tablet 100 mg PO BID Qty: 180 3RF fluticasone propion-salmeterol [Wixela Inhub] 250-50 mcg/dose blister with device See Rx Instructions .ROUTE .COMPLEX Qty: 60 4RF Dose Instruction: INHALE 1 PUFF BY MOUTH TWICE DAILY Label Comments: pt states he takes this as needed Rx Instructions: INHALE 1 PUFF BY MOUTH TWICE DAILY aspirin 81 mg tablet,chewable 81 mg PO DAILY 0RF albuterol sulfate [Ventolin HFA] 90 mcg/actuation HFA aerosol inhaler 2 puff INHALATION Q4H PRN (Reason: Shortness Of Breath) 0RF Disabled Parking Permit 1 ea DAILY 0RF Aleve PM 220-25 mg Tablet 1 tab PO BEDTIME 0RF Follow up/Referrals: Jeffrey Jennings MD [Primary Care Provider] - Diet/Activity/Treatments Diet: Diet as Tolerated Oxygen: arrange for home 02 Discharge Data Primary Care Provider: Jeffrey Jennings Quality VTE Deep Vein Thrombosis/Pulmonary Embolism Present on Admission: No
[2021-06-13] MEDS: ENOXAPARIN 40 MG/0.4 ML SYRINGE SUBCUT (09:08)
[2021-06-13] MEDS: DOCUSATE 100 MG CAPSULE PO (09:08)
[2021-06-13] MEDS: ASPIRIN 81 MG CHEW TAB PO (09:08)
[2021-06-13] MEDS: lisinopriL 20 MG TABLET 40 MG PO (09:09)
[2021-06-13] MEDS: METOPROLOL IR 50 MG TABLET 100 MG PO (09:09)
[2021-06-13] MEDS: levoFLOXacin 750 MG/150 ML PIGGYBACK 100 MG IV (09:10)
[2021-06-13] MEDS: SODIUM CHLORIDE 0.9% FLUSH 10 ML IV (09:13)
[2021-06-13] MEDS: methylPREDNISolone 125 MG/2 ML VIAL 60 MG IV (09:18)
--- NOTE | 2021-06-13 14:15 | PT-IP ANOTE ---
Attempted to see pt at 14:15, pt refused therapy stating he is waiting to be d/c and feel safe to go home.
== END 2021-06-13 14:10 | disposition home or self-care (01) | DRG 189 ==
LOC: ED 10:10 → AC 10:38
PROVIDERS: Admitting Provider Family Medicine; Emergency Provider Emergency Medicine; Family Provider Family Medicine; PCP Family Medicine; Referring Provider Emergency Medicine; Visit Provider Family Medicine
DX: J96.01 Acute respiratory failure with hypoxia (principal); I50.31 Acute diastolic (congestive) heart failure; J44.1 Chronic obstructive pulmonary disease with (acute) exacerbation; I13.0 Hypertensive heart and chronic kidney disease with heart failure and stage 1 through stage 4 chronic kidney disease, or unspecified chronic kidney disease; N17.9 Acute kidney failure, unspecified; N18.9 Chronic kidney disease, unspecified; I35.0 Nonrheumatic aortic (valve) stenosis; E66.9 Obesity, unspecified; F17.210 Nicotine dependence, cigarettes, uncomplicated; I25.10 Atherosclerotic heart disease of native coronary artery without angina pectoris; E78.5 Hyperlipidemia, unspecified; Z20.822 Contact with and (suspected) exposure to COVID-19; Z68.38 Body mass index [BMI] 38.0-38.9, adult; Z85.118 Personal history of other malignant neoplasm of bronchus and lung
CPT/HCPCS: 36415; 71045; 80048; 80053; 81003; 81015; 82550; 82553; 83605; 83735; 83880; 84145; 84484; 85025; 85610; 85730; 87040; 87070; 87077; 87147; 87186; 87205; 87635; 93005; 93010; 93306; 94618; 94640; 94760; 96365; 96366; 96375; 97162; 97530; 99285; C9803; J1650; J1940; J1956; J2930; Q9957

== ENCOUNTER → 2021-07-22 13:19 | Outpatient (CLI) | payer MEDICARE, OTHER, SELFPAY ==
[2021-06-11 10:18] VITALS: BMI 38.7
[2021-07-22 14:30] LABS: Add Manual Diff / Slide Review NO; Basophils Absolute Auto 100 /uL (0-100); Basophils Percent Auto 0.6 % (0-2); Eosinophils Absolute Auto 200 /uL (0-450); Hematocrit 35.2 % (41-53); Hemoglobin 11.9 g/dL (13.5-17.5); Lymphocytes Absolute Auto 1600 /uL (1100-4500); Lymphocytes Percent Auto 16.3 % (25-40); Mean Corpuscular HGB Conc 33.8 % (30-36); Mean Corpuscular Hemoglobin 30.6 PG (26-34); Mean Corpuscular Volume 90.4 fL (80-100); Monocytes Absolute Auto 700 /uL (0-900); Monocytes Percent Auto 7.7 % (3-14); Neutrophils Absolute Auto 7000 /uL (1500-7000); Neutrophils Percent Auto 73.4 % (50-75); Platelet Count 254 X10^3/uL (150-400); Red Blood Cell Count 3.89 X10^6/uL (4.5-5.9); Red Cell Distribution Width 13.2 % (11.6-14.8); White Blood Cell Count 9.5 X10^3/uL (4.5-11.0)
[2021-07-22 14:45] LABS: BUN Creatinine Ratio 18.2 (6-22); Blood Urea Nitrogen 26 mg/dL (9-20); Calcium 9.4 mg/dL (8.4-10.2); Carbon Dioxide 32 mmol/L (22-32); Chloride 100 mmol/L (98-107); Estimated Glomerular Filt Rate 49 mL/min (>60); Glucose 142 mg/dL (80-110); HEMOLYSIS < 15 (0-50); Hemoglobin A1C% w Est Avg Glu 5.9 % (4.0-6.0); Sodium 138 mmol/L (137-145)
== END ==
PROVIDERS: Family Provider Family Medicine; PCP Family Medicine; Referring Provider Physician Assistant; Visit Provider Physician Assistant
DX: I10 Essential (primary) hypertension (principal); R73.09 Other abnormal glucose; I50.9 Heart failure, unspecified; J44.9 Chronic obstructive pulmonary disease, unspecified; N18.30 Chronic kidney disease, stage 3 unspecified
CPT/HCPCS: 36415; 80048; 83036; 85025

== ENCOUNTER 2022-01-08 10:16 | Emergency (ER) | payer MEDICARE, OTHER, SELFPAY ==
[2021-06-11 10:18] VITALS: BMI 38.7
[2022-01-08 11:04] VITALS: BP 159/69; PULSE 56; RESP 17; TEMP 36.7; O2SAT 95; BMI 38.7
[2022-01-08 14:45] VITALS: BP 181/74; PULSE 52; TEMP 36.8; O2SAT 98
--- NOTE | 2022-01-08 14:57 | ED.LOWEXIN ---
HPI - Extremity Injury (Lower) General Chief Complaint: Extremity Injury, Lower Stated Complaint: pain in right side hip Time Seen by Provider: 01/08/22 12:04 Source: patient Mode of arrival: Wheelchair History of Present Illness HPI Narrative: 86-year-old male daily smoker with history of CHF, lung cancer, COPD, coronary artery disease, chronic kidney disease presents with his in the chief complaint of right low back pain progressively worsening since a fall about 3 years ago. He states it all started when he stumbled and fell, striking his right lower back on a fireplace and initially he only had pain in this region but off and on he is had problems with increasing pain in his right lower back and occasional pain going down his right leg. For about the past month he has had increasing, if not persistent pain radiating from his right lower back down to the toes of his right leg, he complains that it feels red, hot and searing. It is made worse when he moves and improves with rest. He denies any new fall or injury. He denies any numbness, tingling or weakness, he denies any footdrop. He does not take blood thinners and denies any fever or chills. He does not have complaint of loss of control of bowel or bladder though he has become constipated over the past few days because he has been taking some Percocet which she got from a friend. Related Data Home Medications Medication Instructions Recorded Confirmed aspirin 81 mg chewable tablet 81 mg PO DAILY 12/17/17 07/29/21 Disabled Parking Permit 1 ea DAILY 06/12/21 07/29/21 Previous Rx's Medication Instructions Recorded albuterol sulfate 90 mcg/actuation 2 puff inhalation Q4H PRN 06/20/21 aerosol inhaler (Ventolin HFA) Shortness Of Breath #8.5 grams fluticasone 250 mcg-salmeterol 50 See Rx Instructions .Route 06/20/21 mcg/dose blistr powdr for .COMPLEX #60 ea inhalation (Wixela Inhub) inhalational spacing device #1 ea 06/20/21 (BreatheRite MDI Spacer) lisinopril 40 mg tablet See Rx Instructions .Route 12/10/21 .COMPLEX #180 tabs metoprolol tartrate 100 mg tablet See Rx Instructions .Route 12/10/21 .COMPLEX #180 tabs atorvastatin 20 mg tablet See Rx Instructions .Route 12/30/21 .COMPLEX #90 tabs cyclobenzaprine 10 mg tablet 10 mg PO TID PRN muscle spasm #14 01/08/22 tabs gabapentin 300 mg capsule 300 mg PO BEDTIME #14 caps 01/08/22 ketorolac 10 mg tablet 10 mg PO Q6H PRN pain #14 tabs 01/08/22 lidocaine 5 % topical patch 1 patch topical DAILY #15 ea 01/08/22 (Lidoderm) methylprednisolone 4 mg tablets in See Rx Instructions PO .COMPLEX 01/08/22 a dose pack (Medrol ([facility])) #21 ea Allergies Allergy/AdvReac Type Severity Reaction Status Date / Time No Known Drug Allergies Allergy Verified 07/29/21 08:54 Review of Systems Review of Systems Narrative: GENERAL: Denies chills, fatigue, malaise, fever, sweats. HEENT: Denies sinus pain, ear pain, sore throat, difficulty swallowing, dizziness. RESPIRATORY: Denies dyspnea, cough, wheezing, hemoptysis, sputum. CARDIOVASCULAR: Denies chest pain, palpitations, orthopnea, edema, GASTROINTESTINAL: Denies nausea, vomiting, abdominal pain, diarrhea, constipation, melena. : Denies dysuria, frequency, incontinence, hematuria, urinary retention. MUSCULOSKELETAL: See HPI SKIN: Denies rash, skin lesions, or other NEUROLOGIC: Denies weakness, headache, numbness, change in speech, confusion, seizures, incoordination. PSYCHIATRIC: No concerning psychosocial issues. 12 point review of systems is negative except for those stated above Patient History Medical History Acute respiratory failure with hypoxia Chronic back pain (~1959) COPD (chronic obstructive pulmonary disease) Gout (~2011) History of urinary incontinence Lung cancer (~2007) Pancreatitis (~2005) Vision disorder Surgical History Anesthesia History of lung surgery (~2007) Family History Father Heart disease Grandmother Age: 82 Ovarian cancer, unspecified laterality Mother Diabetes mellitus Sister No problems noted. Social History marital status: household members: significant other Smoking Status: Current every day smoker alcohol intake: current substance use type: does not use Smoking Status: Current every day smoker alcohol intake frequency: 3 or more drinks per day Substance Use Type: does not use Exam Narrative Exam Narrative: GENERAL: [86] year old patient appears stated age. Well-developed patient, in mild distress. HEAD: Atraumatic. Normocephalic. EYES: Pupils equal round and reactive. Extraocular motions intact. No scleral icterus. No injection or drainage. ENT: Nose without bleeding, purulent drainage. Throat without erythema, tonsillar hypertrophy or exudate. Airway patent. NECK: Trachea midline. Non tender CARDIOVASCULAR: Regular rate and rhythm without murmurs, gallops, or rubs. RESPIRATORY: Clear to auscultation. Breath sounds equal bilaterally. No wheezes, rales, or rhonchi. GASTROINTESTINAL: Abdomen soft, non-tender, nondistended. EXTREMITIES: No edema or joint tenderness. BACK: Right lower lumbar and sacral pain to palpation, no crepitance, edema, ecchymosis or erythema. No signs of cauda equina such as saddle anesthesia, lower extremity, numbness, tingling, weakness. Bilateral lower extremity patellar reflexes 1+. 5/5 strength measured bilaterally. NEURO: AOx3. SKIN: No rash or erythema of visible areas Initial Vital Signs Initial Vital Signs: Vital Signs Temperature 98.0 F 01/08/22 11:04 Pulse Rate 56 L 01/08/22 11:04 Respiratory Rate 17 01/08/22 11:04 Blood Pressure 159/69 H 01/08/22 11:04 Pulse Oximetry 95 01/08/22 11:04 Oxygen Delivery Method 01/08/22 11:04 Course Orders Ordered: ED Orders 01/08/22 15:07 XR lumbar spine 2-3V Stat XR sacrum coccyx min 2V Stat Gabapentin (Gabapentin 300 Mg Capsule) 300 mg PO DAILY MARTIN Discontinued Medications Gabapentin (Gabapentin 300 Mg Capsule) 300 mg PO NOW ONE Stop: 01/08/22 16:22 Last Admin: 01/08/22 16:25 Dose: 300 mg Ketorolac Tromethamine (Ketorolac 30 Mg/Ml Vial) 30 mg IM NOW ONE Stop: 01/08/22 15:07 Last Admin: 01/08/22 16:20 Dose: 30 mg Lidocaine (Lidocaine Patch 1 Each Adh..Patch) 1 each TOP NOW ONE Stop: 01/08/22 15:07 Last Admin: 01/08/22 16:21 Dose: 1 each Prednisone (Prednisone 20 Mg Tablet) 40 mg PO NOW ONE Stop: 01/08/22 15:07 Last Admin: 01/08/22 16:20 Dose: 40 mg Vital Signs Vital signs: Vital Signs - 8 hr 01/08/22 11:04 01/08/22 14:45 01/08/22 16:15 Temperature 98.0 F 98.2 F 97.8 F Pulse Rate 56 L 52 L 64 Respiratory Rate 17 18 Blood Pressure 159/69 H 181/74 H 171/74 H Pulse Oximetry 95 98 98 Oxygen Delivery Method Room Air Room Air Room Air MDM - Extremity Injury (Lower) Imaging Data L Spine: Radiologist's Impression: [address] [address] XRay Report Signed Patient: Todd Angel MR#: [id number] : 1935 Acct:[id number] Age/Sex: 86 / M Date of Service: 01/08/22 Loc: ED Accession Number: [id number] ?? Procedure: XR lumbar spine 2-3V Ordering Provider: Partha Salcedo D.O. PROCEDURE:? XR LUMBAR SPINE 2-3V ? INDICATIONS:? Trauma, fall with lumbosacral pain ? TECHNIQUE:? 3 views of the lumbar spine were acquired.? ? COMPARISON:? No relevant prior comparison. ? FINDINGS:? ? Exam limited by patient body habitus and patient motion artifact.? No definite vertebral body height loss or wedging.? No gross evidence of fracture.? Multilevel multifactorial degenerative changes. ? IMPRESSION:? Highly limited exam due to body habitus and patient motion.? CT of the lumbar spine recommended if there is continued clinical concern for fracture, ideally with improved pain management so as to minimize motion artifact.? ? Dictated by: Jeffrey Oliveira M.D. on 01/08/2022 at 16:05 ? ? Approved by: Jeffrey Oliveira M.D. on 01/08/2022 at 16:07 ? [facility] Narrative Medical decision making narrative: Patient with very reassuring history and physical exam. Multiple etiologies of back pain considered including; Epidural abscess, cauda equina, mass occupying lesion, and other considered, however no red flag findings consistent with neuro surgical emergency are present. Extensive return precautions discussed and questions answered to his apparent satisfaction Discharge Plan Departure Patient Disposition: Home Clinical Impression: Acute lumbar radiculopathy Instructions: DI for Lumbar Radiculopathy Activity Restrictions/Additional Instructions: *You have been diagnosed with [lumbar pain with radiculopathy. As we discussed your history and physical exam are reassuring and x-ray showed no sign of fracture. There is no indication at this time of any neurosurgical emergency and the medications that we discussed have been sent to your pharmacy] *What to do: *Please continue to take your regular medications as directed. [ x] New medication prescriptions sent to your pharmacy: [[facility] ] [ ] New medication written as a paper prescription [ ] No new medications given *Please follow up with your primary care provider in 2-3 days, call for an appointment. Let them know you were seen in the Emergency Department and that we ask that you be seen in follow up. We will electronically transmit a record of today's note if your PCP is in our system *You have been diagnosed with [ abdominal pain due to constipation ] *What to do: *Take over the counter medications as directed: 1. Metamucil - is a bulk forming laxative and adds fiber 2. Colace - softens your stool 3. Dulcolax suppository - stimulates your bowels *Follow up with your primary care provider in 2-3 days, call for appointment *Return to ER if you should have any new, worsening or concerning symptoms *Drink plenty of water and eat foods high in fiber *Stay as active as you can as this helps move your bowels as well Prescriptions: New cyclobenzaprine 10 mg tablet 10 mg PO TID PRN (Reason: muscle spasm) Qty: 14 0RF ketorolac 10 mg tablet 10 mg PO Q6H PRN (Reason: pain) Qty: 14 0RF lidocaine [Lidoderm] 5 % adhesive patch,medicated 1 patch TOP DAILY Qty: 15 0RF Rx Instructions: leave on most painful area for 12 hrs gabapentin 300 mg capsule 300 mg PO BEDTIME Qty: 14 0RF methylprednisolone [Medrol ([facility])] 4 mg tablets,dose pack See Rx Instructions .ROUTE .COMPLEX Qty: 21 0RF Rx Instructions: orally per package directions No Action albuterol sulfate [Ventolin HFA] 90 mcg/actuation HFA aerosol inhaler 2 puff INHALATION Q4H PRN (Reason: Shortness Of Breath) Qty: 8.5 3RF Rx Instructions: 2 puffs every 4-6 hours as needed for shortness of breath - use with spacer fluticasone propion-salmeterol [Wixela Inhub] 250-50 mcg/dose blister with device See Rx Instructions .ROUTE .COMPLEX Qty: 60 4RF Dose Instruction: INHALE 1 PUFF BY MOUTH TWICE DAILY Label Comments: pt states he takes this as needed Rx Instructions: INHALE 1 PUFF BY MOUTH TWICE DAILY (DME) BreatheRite MDI Spacer Spacer See Rx Instructions .Route Qty: 1 3RF Rx Instructions: As directed lisinopril 40 mg tablet See Rx Instructions .ROUTE .COMPLEX Qty: 180 2RF Dose Instruction: TAKE 1 TABLET BY MOUTH TWICE DAILY Rx Instructions: TAKE 1 TABLET BY MOUTH TWICE DAILY metoprolol tartrate 100 mg tablet See Rx Instructions .ROUTE .COMPLEX Qty: 180 2RF Dose Instruction: TAKE 1 TABLET BY MOUTH TWICE DAILY Rx Instructions: TAKE 1 TABLET BY MOUTH TWICE DAILY atorvastatin 20 mg tablet See Rx Instructions .ROUTE .COMPLEX Qty: 90 3RF Dose Instruction: TAKE 1 TABLET BY MOUTH EVERY NIGHT AT BEDTIME Rx Instructions: TAKE 1 TABLET BY MOUTH EVERY NIGHT AT BEDTIME aspirin 81 mg tablet,chewable 81 mg PO DAILY Disabled Parking Permit 1 ea DAILY Referrals: Jagdish Lo DO [Physician] - Jeffrey Jennings MD [Primary Care Provider] - Ashly Moore MD [Physician] - Visit Report Forms: Patient Portal/API
--- NOTE | 2022-01-08 15:07 | DI.RAD.S_ITS ---
PROCEDURE: XR SACRUM COCCYX MIN 2V INDICATIONS: fall with sacral pain TECHNIQUE: 3 views of the sacrum and coccyx acquired. COMPARISON: None. FINDINGS: Bones: No fractures or dislocations. No suspicious bony lesions. Degenerative disc disease in visualized lower lumbar spine is seen. Soft tissues: Visualized bowel gas pattern is normal. No suspicious soft tissue densities. IMPRESSION: No gross acute sacral or coccygeal fracture is seen. Degenerative disc disease in lower lumbar spine. Dictated by: Alexandru Gutierrez M.D. on 01/08/2022 at 16:14 Approved by: Alexandru Gutierrez M.D. on 01/08/2022 at 16:14
--- NOTE | 2022-01-08 15:07 | DI.RAD.S_ITS ---
PROCEDURE: XR LUMBAR SPINE 2-3V INDICATIONS: Trauma, fall with lumbosacral pain TECHNIQUE: 3 views of the lumbar spine were acquired. COMPARISON: No relevant prior comparison. FINDINGS: Exam limited by patient body habitus and patient motion artifact. No definite vertebral body height loss or wedging. No gross evidence of fracture. Multilevel multifactorial degenerative changes. IMPRESSION: Highly limited exam due to body habitus and patient motion. CT of the lumbar spine recommended if there is continued clinical concern for fracture, ideally with improved pain management so as to minimize motion artifact. Dictated by: Jeffrey Oliveira M.D. on 01/08/2022 at 16:05 Approved by: Jeffrey Oliveira M.D. on 01/08/2022 at 16:07
[2022-01-08 16:15] VITALS: BP 171/74; PULSE 64; RESP 18; TEMP 36.6; O2SAT 98
[2022-01-08] MEDS: KETOROLAC 30 MG/ML VIAL IM (16:20)
[2022-01-08] MEDS: predniSONE 20 MG TABLET 40 MG PO (16:20)
[2022-01-08] MEDS: LIDOCAINE PATCH 1 EACH ADH..PATCH TOP (16:21)
[2022-01-08] MEDS: GABAPENTIN 300 MG CAPSULE PO (16:25)
== END 2022-01-08 16:46 | disposition home or self-care (01) ==
PROVIDERS: Emergency Provider Emergency Medicine; Family Provider Family Medicine; PCP Family Medicine
DX: M54.16 Radiculopathy, lumbar region (principal)
CPT/HCPCS: 72100; 72220; 96372; 99283; 99284; J1885

== ENCOUNTER 2022-02-06 19:14 | Inpatient (IN) | payer MEDICARE, OTHER, SELFPAY ==
[2021-06-11 10:18] VITALS: BMI 38.7
[2022-02-06] VITALS (63 sets, daily range): BP systolic 70–177; BP diastolic 35–98; PULSE 60–81; RESP 18–30; TEMP 36.7–37.5; O2SAT 89–98; BMI 39.0
--- NOTE | 2022-02-06 19:16 | DI.RAD.S_ITS ---
PROCEDURE: XR CHEST 1V INDICATIONS: weakness, cough TECHNIQUE: One view of the chest was acquired. COMPARISON: [facility], CR, XR CHEST 1V, 06/11/2021, 8:54. FINDINGS: New left mid lung and left basilar airspace opacity with d stable diffuse bilateral interstitial opacities. Cardiomegaly again noted. IMPRESSION: Cardiomegaly with diffuse moderate interstitial and developing alveolar edema in the left mid lung and left lung base. Superimposed infection in the left lower lobe cannot be strictly excluded however the findings are favored to represent pulmonary edema. Correlate for leukocytosis and with BNP. Dictated by: Jeffrey Oliveira M.D. on 02/06/2022 at 19:51 Approved by: Jeffrey Oliveira M.D. on 02/06/2022 at 19:53
[2022-02-06 19:33] LABS: Hematocrit 35.7 % (41-53); Hemoglobin 11.6 g/dL (13.5-17.5); Mean Corpuscular HGB Conc 32.4 % (30-36); Mean Corpuscular Hemoglobin 29.7 PG (26-34); Mean Corpuscular Volume 91.6 fL (80-100); Platelet Count 227 X10^3/uL (150-400); Red Cell Distribution Width 14.8 % (11.6-14.8); White Blood Cell Count 24.4 X10^3/uL (4.5-11.0)
[2022-02-06 19:36] LABS: Add Manual Diff / Slide Review YES
[2022-02-06 19:41] LABS: Magnesium 1.4 mg/dL (1.6-2.3)
[2022-02-06 19:43] LABS: Alanine Aminotransferase 34 IU/L (<50); Albumin 3.9 g/dL (3.5-5.0); Albumin Globulin Ratio 1.2 (1.0-2.8); Alkaline Phosphatase 64 U/L (38-126); Aspartate Aminotransferase 113 IU/L (17-59); BUN Creatinine Ratio 23.2 (6-22); Bilirubin Total 0.5 mg/dL (0.2-1.3); Blood Urea Nitrogen 59 mg/dL (9-20); Calcium 9.1 mg/dL (8.4-10.2); Carbon Dioxide 18 mmol/L (22-32); Chloride 102 mmol/L (98-107); Estimated Glomerular Filt Rate 24 mL/min (>60); Globulin 3.3 g/dL (1.7-4.1); Glucose 118 mg/dL (80-110); HEMOLYSIS 27 (0-50); Potassium 5.2 mmol/L (3.4-5.1); Sodium 136 mmol/L (137-145); Total Protein 7.2 g/dL (6.3-8.2)
[2022-02-06 19:51] LABS: Neutrophils Absolute Manual 21228 /uL (3000-5900); RBC Morphology Normal Morphology; Total Cells Counted 100
[2022-02-06 19:55] LABS: Lactate (Lactic Acid) 5.9 mmol/L (0.7-2.1); NT-proBNP (BNP-Adult 18+) 4650 pg/mL (<450); Troponin I 0.025 ng/mL (0.01-0.034)
[2022-02-06 19:59] LABS: Procalcitonin 9.74 ng/mL (<0.5)
--- NOTE | 2022-02-06 20:12 | ED_ITS ---
HPI - General Adult General Chief complaint: Shortness of Breath/Dyspnea Stated complaint: SOB Time Seen by Provider: 02/06/22 19:15 Source: patient and EMS Mode of arrival: EMS History of Present Illness HPI narrative: 86-year-old gentleman with a history of COPD, 2 L of oxygen at home, lung cancer with resection, hypertension, chronic atrial fibrillation, congestive heart failure who called medics this evening after he rolled over in bed and was caught between the bed and the wall and could not extricate himself. He was looking simply for assistance getting back into bed however medics noted that significantly hypotensive and weak and recommended an emergency room visit. On presentation he is hypotensive, pale, hypothermic. He is not complaining of flank pain dysuria or frequency. Does not complain of headache or abdominal pain. Can not exactly pinpoint how long symptoms have been present. Is slightly confused but moving all extremities appropriately. Patient did recently have both COVID as well as parvovirus. [place] that he was just beginning to completely resolve after the parvovirus. Notes that he had desquamation with his feet after this virus. He noted that he is had 10/10 low back pain for a number of years that is continuing to be a significant problem for him today. Related Data Home Medications Medication Instructions Recorded Confirmed aspirin 81 mg chewable tablet 81 mg PO DAILY 12/17/17 01/27/22 Disabled Parking Permit 1 ea DAILY 06/12/21 02/06/22 Previous Rx's Medication Instructions Recorded albuterol sulfate 90 mcg/actuation 2 puff inhalation Q4H PRN 06/20/21 aerosol inhaler (Ventolin HFA) Shortness Of Breath #8.5 grams fluticasone 250 mcg-salmeterol 50 See Rx Instructions .Route 06/20/21 mcg/dose blistr powdr for .COMPLEX #60 ea inhalation (Wixela Inhub) inhalational spacing device #1 ea 06/20/21 (BreatheRite MDI Spacer) lisinopril 40 mg tablet See Rx Instructions .Route 12/10/21 .COMPLEX #180 tabs metoprolol tartrate 100 mg tablet See Rx Instructions .Route 12/10/21 .COMPLEX #180 tabs atorvastatin 20 mg tablet See Rx Instructions .Route 12/30/21 .COMPLEX #90 tabs ketorolac 10 mg tablet 10 mg PO Q6H PRN pain #14 tabs 01/08/22 gabapentin 300 mg capsule 300 mg PO BEDTIME #30 caps 01/27/22 lidocaine 5 % topical patch 1 patch topical DAILY #15 ea 01/27/22 (Lidoderm) cyclobenzaprine 10 mg tablet 10 mg PO TID PRN muscle spasm #30 01/29/22 tabs Allergies Allergy/AdvReac Type Severity Reaction Status Date / Time No Known Drug Allergies Allergy Verified 01/27/22 09:34 Review of Systems Review of Systems Narrative: Remainder of complete review of systems is otherwise unremarkable except for that included in the HPI. Patient History Medical History (Updated 02/06/22 @ 22:57 by Andreia Chandler MD) Acute respiratory failure with hypoxia Chronic back pain (~1959) COPD (chronic obstructive pulmonary disease) Gout (~2011) History of urinary incontinence Lung cancer (~2007) Moderate aortic stenosis by prior echocardiogram Pancreatitis (~2005) Vision disorder Surgical History (Updated 02/06/22 @ 22:50 by Todd Salinas MD) Anesthesia History of lung surgery (~03/2007) Family History Father Heart disease Grandmother Age: 82 Ovarian cancer, unspecified laterality Mother Diabetes mellitus Sister No problems noted. Social History marital status: household members: significant other Smoking Status: Current every day smoker alcohol intake: current substance use type: does not use Smoking Status: Current every day smoker alcohol intake frequency: 3 or more drinks per day Substance Use Type: does not use Exam Initial Vital Signs Initial Vital Signs: Vital Signs Pulse Rate 73 02/06/22 19:23 Respiratory Rate 28 H 02/06/22 19:23 Pulse Oximetry 96 02/06/22 19:23 General: Chronically ill-appearing, slightly confused, moving all extremities, mild tachypnea HEENT: Moist mucous membranes, normal sclera with reactive pupils, Neck: + JVD, supple Respiratory: Lungs with basilar crackles bilaterally minor scattered wheezes no rhonchi. Full and symmetrical air movement Cardiac: Irregular rhythm with no murmurs no bruits Abdomen: Soft, obese, nontender, good bowel tones, no flank pain Skin: Pale, Warm and dry, no rashes, resolving desquamation of the feet right greater than left Neurologic: Globally weak but Grossly neurologically intact with no obvious asymmetries or abnormalities Extremities: No trauma, initially decreased perfusion in hands and feet Psych: Cooperative, appropriate insight and affect Course Orders Ordered: ED Orders 02/06/22 19:16 XR chest 1V Stat EKG-12 Lead Stat 02/06/22 19:20 Complete Blood Count AUTO DIFF Stat Comprehensive Metabolic Panel Stat Lactate (Lactic Acid) Stat Magnesium Stat NT-proBNP (BNP-Adult 18+) Stat Procalcitonin Stat Troponin I Stat 02/06/22 19:25 Covid-19 + FLU A/B + RSV - PCR Stat Respiratory Panel (Film Array) Stat 02/06/22 20:05 Blood Culture Stat 02/06/22 20:45 Urinalysis and Microscopic Stat Urine Culture Stat Acetaminophen (Acetaminophen 325 Mg Tablet) 650 mg PO Q6H PRN PRN Reason: Fever/Mild Pain (1-3) Albuterol (Albuterol 2.5 Mg/3 Ml Neb (Adult)) 2.5 mg INH [id number] PRN PRN Reason: Shortness Of Breath Albuterol/Ipratropium (Albuterol/Ipratropium 3 Ml Ampul) 3 ml INH [id number] MARTIN Aspirin (Aspirin 81 Mg Chew Tab) 81 mg PO DAILY MARTIN Atorvastatin Calcium (Atorvastatin 20 Mg Tablet) 20 mg PO BEDTIME MARTIN Enoxaparin Sodium (Enoxaparin 40 Mg/0.4 Ml Syringe) 40 mg SUBCUT DAILY MARTIN NOREPINEPHRINE BITARTRATE/D5W (Levophed) 4 mg in 250 mls @ 30 mls/hr IV TITRATE MARTIN; Protocol Last Titration: 02/06/22 21:33 Dose: 8 mcg/min, 30 mls/hr Documented By: Titration: 02/06/22 20:35 Dose: 6 mcg/min, 22.5 mls/hr Documented By: Admin: 02/06/22 20:15 Dose: 8 mcg/min, 30 mls/hr Documented By: RB Piperacillin Sod/Tazobactam (Sod 3.375 gm/ Sodium Chloride) 100 mls @ 25 mls/hr IV Q6H MARTIN Naloxone HCl (Naloxone 0.4 Mg/Ml Vial) 0.2 mg IV Q2MIN PRN PRN Reason: Opiate Reversal Pantoprazole Sodium (Pantoprazole Dr 40 Mg Tablet) 40 mg PO 0700 MARTIN Discontinued Medications Piperacillin Sod/Tazobactam (Sod 4.5 gm/ Sodium Chloride) 100 mls @ 200 mls/hr IV NOW ONE Stop: 02/06/22 20:14 Last Infusion: 02/06/22 21:44 Dose: 0 mls/hr Documented By: Admin: 02/06/22 20:52 Dose: 200 mls/hr Documented By: BENOIT Vital Signs Vital signs: Vital Signs - 8 hr 02/06/22 19:38 02/06/22 19:23 02/06/22 19:30 Temperature 98.1 F Pulse Rate 64 73 69 Respiratory Rate 26 H 28 H 25 H Blood Pressure 138/98 H Pulse Oximetry 94 96 98 Oxygen Delivery Method Room Air Oxygen Flow Rate 02/06/22 19:34 02/06/22 19:36 02/06/22 19:49 Temperature Pulse Rate 66 67 Respiratory Rate 21 24 Blood Pressure 138/98 H Pulse Oximetry 97 97 Oxygen Delivery Method Oxygen Flow Rate 02/06/22 19:49 02/06/22 19:50 02/06/22 19:55 Temperature Pulse Rate 64 65 64 Respiratory Rate 24 24 25 H Blood Pressure Pulse Oximetry 93 92 96 Oxygen Delivery Method Nasal Cannula Nasal Cannula Oxygen Flow Rate 2 2 02/06/22 19:56 02/06/22 19:56 02/06/22 20:00 Temperature Pulse Rate 63 61 Respiratory Rate 24 22 Blood Pressure 89/50 L Pulse Oximetry 96 96 Oxygen Delivery Method Nasal Cannula Nasal Cannula Oxygen Flow Rate 2 2 02/06/22 20:01 02/06/22 20:01 02/06/22 20:05 Temperature Pulse Rate 61 60 Respiratory Rate 25 H 18 Blood Pressure 86/51 L Pulse Oximetry 95 95 Oxygen Delivery Method Nasal Cannula Nasal Cannula Oxygen Flow Rate 2 2 02/06/22 20:06 02/06/22 20:06 02/06/22 20:07 Temperature Pulse Rate 60 60 Respiratory Rate 29 H 29 H Blood Pressure 85/45 L Pulse Oximetry 95 89 L Oxygen Delivery Method Nasal Cannula Nasal Cannula Oxygen Flow Rate 2 2 02/06/22 20:07 02/06/22 20:09 02/06/22 20:09 Temperature Pulse Rate 64 Respiratory Rate 26 H Blood Pressure 82/44 L 88/50 L Pulse Oximetry Oxygen Delivery Method Oxygen Flow Rate 02/06/22 20:10 12/01/22 20:11 02/06/22 20:11 Temperature Pulse Rate 66 66 Respiratory Rate 30 H 24 Blood Pressure 93/54 L Pulse Oximetry 96 96 Oxygen Delivery Method Nasal Cannula Nasal Cannula Oxygen Flow Rate 2 2 02/06/22 20:15 02/06/22 20:15 02/06/22 20:16 Temperature Pulse Rate 65 65 Respiratory Rate 21 24 Blood Pressure 75/35 L Pulse Oximetry 97 97 Oxygen Delivery Method Nasal Cannula Nasal Cannula Oxygen Flow Rate 2 2 02/06/22 20:16 02/06/22 20:19 02/06/22 20:19 Temperature Pulse Rate 69 Respiratory Rate 30 H Blood Pressure 75/35 L 158/70 H Pulse Oximetry 98 Oxygen Delivery Method Nasal Cannula Oxygen Flow Rate 2 02/06/22 20:20 02/06/22 20:21 02/06/22 20:21 Temperature Pulse Rate 71 72 Respiratory Rate 23 27 H Blood Pressure 158/70 H Pulse Oximetry 98 98 Oxygen Delivery Method Nasal Cannula Nasal Cannula Oxygen Flow Rate 2 2 02/06/22 20:25 02/06/22 20:26 02/06/22 20:26 Temperature Pulse Rate 76 76 Respiratory Rate 22 23 Blood Pressure 154/65 H Pulse Oximetry 98 97 Oxygen Delivery Method Nasal Cannula Nasal Cannula Oxygen Flow Rate 2 2 02/06/22 20:28 02/06/22 20:28 02/06/22 20:30 Temperature Pulse Rate 75 75 Respiratory Rate 25 H 20 Blood Pressure 130/61 Pulse Oximetry 97 98 Oxygen Delivery Method Nasal Cannula Nasal Cannula Oxygen Flow Rate 2 02/06/22 20:31 02/06/22 20:31 02/06/22 20:35 Temperature Pulse Rate 76 Respiratory Rate 23 Blood Pressure 160/71 H 145/61 H Pulse Oximetry 98 Oxygen Delivery Method Nasal Cannula Oxygen Flow Rate 2 02/06/22 20:35 02/06/22 20:40 02/06/22 20:43 Temperature Pulse Rate 76 76 75 Respiratory Rate 21 21 23 Blood Pressure Pulse Oximetry 98 92 90 L Oxygen Delivery Method Nasal Cannula Nasal Cannula Nasal Cannula Oxygen Flow Rate 2 2 2 02/06/22 20:43 02/06/22 20:45 02/06/22 20:46 Temperature Pulse Rate 75 Respiratory Rate 20 Blood Pressure 120/56 L 122/69 Pulse Oximetry 93 Oxygen Delivery Method Nasal Cannula Oxygen Flow Rate 2 02/06/22 20:46 02/06/22 20:50 02/06/22 20:50 Temperature 98.1 F Pulse Rate 75 76 Respiratory Rate 19 18 Blood Pressure 146/61 H Pulse Oximetry 97 98 Oxygen Delivery Method Nasal Cannula Nasal Cannula Oxygen Flow Rate 2 2 02/06/22 20:55 02/06/22 20:55 02/06/22 21:00 Temperature 98.8 F Pulse Rate 76 Respiratory Rate 20 Blood Pressure 125/62 173/64 H Pulse Oximetry 97 Oxygen Delivery Method Nasal Cannula Oxygen Flow Rate 2 02/06/22 21:00 02/06/22 21:05 02/06/22 21:05 Temperature 99.1 F 99.3 F Pulse Rate 75 75 Respiratory Rate 20 20 Blood Pressure 119/56 L Pulse Oximetry 97 97 Oxygen Delivery Method Nasal Cannula Nasal Cannula Oxygen Flow Rate 2 2 02/06/22 21:10 02/06/22 21:10 02/06/22 21:15 Temperature 99.5 F Pulse Rate 75 Respiratory Rate 19 Blood Pressure 122/59 L 108/57 L Pulse Oximetry 97 Oxygen Delivery Method Nasal Cannula Oxygen Flow Rate 2 02/06/22 21:15 02/06/22 21:20 02/06/22 21:23 Temperature 99.5 F 99.5 F 99.5 F Pulse Rate 75 75 75 Respiratory Rate 20 20 19 Blood Pressure Pulse Oximetry 97 95 96 Oxygen Delivery Method Nasal Cannula Nasal Cannula Nasal Cannula Oxygen Flow Rate 2 2 2 02/06/22 21:23 Temperature Pulse Rate Respiratory Rate Blood Pressure 113/53 L Pulse Oximetry Oxygen Delivery Method Oxygen Flow Rate Medical Decision Making Lab Data Result diagrams: 02/06/22 19:20 02/06/22 19:20 Labs: Lab Results 02/06/22 02/06/22 02/06/22 Range/Units 19:20 19:20 19:20 WBC 24.4 H (4.5-11.0) X10^3/uL RBC 3.90 L (4.5-5.9) X10^6/uL Hgb 11.6 L (13.5-17.5) g/dL Hct 35.7 L (41-53) % MCV 91.6 (80-100) fL MCH 29.7 (26-34) PG MCHC 32.4 (30-36) % RDW 14.8 (11.6-14.8) % Plt Count 227 (150-400) X10^3/uL Neut % (Auto) Not Reportable Lymph % (Auto) Not Reportable [place] % (Auto) Not Reportable Eos % (Auto) Not Reportable Baso % (Auto) Not Reportable Lymph # (Auto) Not Reportable [place] # (Auto) Not Reportable Baso # (Auto) Not Reportable Total Counted 100 Seg Neutrophils % 80.0 H (38-70) % Band Neutrophils % 7.0 (3-7) % Lymphocytes % (Manual) 3.0 L (25-45) % Monocytes % (Manual) 8.0 (2-11) % Eosinophils % (Manual) 1.0 L (2-4) % Metamyelocytes % 1.0 H (-0) % Neutrophils # (Manual) 97672 H (9422-0525) /uL RBC Morphology Normal morphology Sodium 136 L (137-145) mmol/L Potassium 5.2 H (3.4-5.1) mmol/L Chloride 102 (98-107) mmol/L Carbon Dioxide 18 L (22-32) mmol/L BUN 59 H (9-20) mg/dL Creatinine 2.54 H (0.66-1.25) mg/dL Estimated GFR 24 L (>60) mL/min BUN/Creatinine Ratio 23.2 H (6-22) Glucose 118 H (80-110) mg/dL Lactate (0.7-2.1) mmol/L Calcium 9.1 (8.4-10.2) mg/dL Magnesium 1.4 L (1.6-2.3) mg/dL Total Bilirubin 0.5 (0.2-1.3) mg/dL AST 113 H (17-59) IU/L ALT 34 (<50) IU/L Alkaline Phosphatase 64 (38-126) U/L Troponin I 0.025 (0.01-0.034) ng/mL NT-Pro-B Natriuret Pep 4650 H (<450) pg/mL Total Protein 7.2 (6.3-8.2) g/dL Albumin 3.9 (3.5-5.0) g/dL Globulin 3.3 (1.7-4.1) g/dL Albumin/Globulin Ratio 1.2 (1.0-2.8) Procalcitonin 9.74 H (<0.5) ng/mL Urine Color Urine Appearance Urine pH (4.5-8.0) Ur Specific [place] (1.000-1.035) Urine Protein (Negative) Urine Glucose (UA) (Negative) g/dL Urine Ketones (NEGATIVE) Urine Occult Blood (Negative) Urine Nitrate (Negative) Urine Bilirubin (NEGATIVE) Urine Urobilinogen (0.2) E.U./dL Ur Leukocyte Esterase (NEGATIVE) Urine RBC (0-5/HPF) Urine WBC (0-5/HPF) Ur Squamous Epith Cells (0-5/HPF) Ur Transition Epith Cell (0-5/HPF) Urine Bacteria (None) Ur Culture Indicated? Chlamy pneumoniae PCR (Not Detect) Adenovirus (PCR) (Not Detect) B. pertussis DNA (PCR) (Not Detecte) B.parapertussis DNA PCR (Not Detecte) Coronavirus OC43 (PCR) (Not Detect) Coronavirus HKU1 (PCR) (Not Detect) Coronavirus 229E (PCR) (Not Detect) SARS-CoV-2 (PCR) (Negative) Coronavirus NL63 (PCR) (Not Detect) Human Metapneumovir PCR (Not Detect) Influenza A (RT-PCR) (NEGATIVE) Influenza Type A (PCR) (Not Detect) Influenza B (RT-PCR) (NEGATIVE) Influenza Type B (PCR) (Not Detect) M. pneumoniae (PCR) (Not Detect) Parainfluenza 1 (PCR) (Not Detect) Parainfluenza 2 (PCR) (Not Detect) Parainfluenza 3 (PCR) (Not Detect) Parainfluenza 4 (PCR) (Not Detect) RSV (PCR) (Negative) Entero/Rhino (PCR) (Not Detect) 02/06/22 02/06/22 02/06/22 Range/Units 19:20 19:25 19:25 WBC (4.5-11.0) X10^3/uL RBC (4.5-5.9) X10^6/uL Hgb (13.5-17.5) g/dL Hct (41-53) % MCV (80-100) fL MCH (26-34) PG MCHC (30-36) % RDW (11.6-14.8) % Plt Count (150-400) X10^3/uL Neut % (Auto) Lymph % (Auto) [place] % (Auto) Eos % (Auto) Baso % (Auto) Lymph # (Auto) [place] # (Auto) Baso # (Auto) Total Counted Seg Neutrophils % (38-70) % Band Neutrophils % (3-7) % Lymphocytes % (Manual) (25-45) % Monocytes % (Manual) (2-11) % Eosinophils % (Manual) (2-4) % Metamyelocytes % (-0) % Neutrophils # (Manual) (3572-2836) /uL RBC Morphology Sodium (137-145) mmol/L Potassium (3.4-5.1) mmol/L Chloride (98-107) mmol/L Carbon Dioxide (22-32) mmol/L BUN (9-20) mg/dL Creatinine (0.66-1.25) mg/dL Estimated GFR (>60) mL/min BUN/Creatinine Ratio (6-22) Glucose (80-110) mg/dL Lactate 5.9 H* (0.7-2.1) mmol/L Calcium (8.4-10.2) mg/dL Magnesium (1.6-2.3) mg/dL Total Bilirubin (0.2-1.3) mg/dL AST (17-59) IU/L ALT (<50) IU/L Alkaline Phosphatase (38-126) U/L Troponin I (0.01-0.034) ng/mL NT-Pro-B Natriuret Pep (<450) pg/mL Total Protein (6.3-8.2) g/dL Albumin (3.5-5.0) g/dL Globulin (1.7-4.1) g/dL Albumin/Globulin Ratio (1.0-2.8) Procalcitonin (<0.5) ng/mL Urine Color Urine Appearance Urine pH (4.5-8.0) Ur Specific [place] (1.000-1.035) Urine Protein (Negative) Urine Glucose (UA) (Negative) g/dL Urine Ketones (NEGATIVE) Urine Occult Blood (Negative) Urine Nitrate (Negative) Urine Bilirubin (NEGATIVE) Urine Urobilinogen (0.2) E.U./dL Ur Leukocyte Esterase (NEGATIVE) Urine RBC (0-5/HPF) Urine WBC (0-5/HPF) Ur Squamous Epith Cells (0-5/HPF) Ur Transition Epith Cell (0-5/HPF) Urine Bacteria (None) Ur Culture Indicated? Chlamy pneumoniae PCR Not detected (Not Detect) Adenovirus (PCR) Not detected (Not Detect) B. pertussis DNA (PCR) Not detected (Not Detecte) B.parapertussis DNA PCR Not detected (Not Detecte) Coronavirus OC43 (PCR) Not detected (Not Detect) Coronavirus HKU1 (PCR) Not detected (Not Detect) Coronavirus 229E (PCR) Not detected (Not Detect) SARS-CoV-2 (PCR) Negative Not detected (Negative) Coronavirus NL63 (PCR) Not detected (Not Detect) Human Metapneumovir PCR Not detected (Not Detect) Influenza A (RT-PCR) Flu a negative (NEGATIVE) Influenza Type A (PCR) Not detected (Not Detect) Influenza B (RT-PCR) Flu b negative (NEGATIVE) Influenza Type B (PCR) Not detected (Not Detect) M. pneumoniae (PCR) Not detected (Not Detect) Parainfluenza 1 (PCR) Not detected (Not Detect) Parainfluenza 2 (PCR) Not detected (Not Detect) Parainfluenza 3 (PCR) Not detected (Not Detect) Parainfluenza 4 (PCR) Not detected (Not Detect) RSV (PCR) Negative Not detected (Negative) Entero/Rhino (PCR) Not detected (Not Detect) 02/06/22 Range/Units 20:45 WBC (4.5-11.0) X10^3/uL RBC (4.5-5.9) X10^6/uL Hgb (13.5-17.5) g/dL Hct (41-53) % MCV (80-100) fL MCH (26-34) PG MCHC (30-36) % RDW (11.6-14.8) % Plt Count (150-400) X10^3/uL Neut % (Auto) Lymph % (Auto) [place] % (Auto) Eos % (Auto) Baso % (Auto) Lymph # (Auto) [place] # (Auto) Baso # (Auto) Total Counted Seg Neutrophils % (38-70) % Band Neutrophils % (3-7) % Lymphocytes % (Manual) (25-45) % Monocytes % (Manual) (2-11) % Eosinophils % (Manual) (2-4) % Metamyelocytes % (-0) % Neutrophils # (Manual) (4059-9378) /uL RBC Morphology Sodium (137-145) mmol/L Potassium (3.4-5.1) mmol/L Chloride (98-107) mmol/L Carbon Dioxide (22-32) mmol/L BUN (9-20) mg/dL Creatinine (0.66-1.25) mg/dL Estimated GFR (>60) mL/min BUN/Creatinine Ratio (6-22) Glucose (80-110) mg/dL Lactate (0.7-2.1) mmol/L Calcium (8.4-10.2) mg/dL Magnesium (1.6-2.3) mg/dL Total Bilirubin (0.2-1.3) mg/dL AST (17-59) IU/L ALT (<50) IU/L Alkaline Phosphatase (38-126) U/L Troponin I (0.01-0.034) ng/mL NT-Pro-B Natriuret Pep (<450) pg/mL Total Protein (6.3-8.2) g/dL Albumin (3.5-5.0) g/dL Globulin (1.7-4.1) g/dL Albumin/Globulin Ratio (1.0-2.8) Procalcitonin (<0.5) ng/mL Urine Color Yellow Urine Appearance Clear Urine pH 5.0 (4.5-8.0) Ur Specific [place] 1.020 (1.000-1.035) Urine Protein 1+ H (Negative) Urine Glucose (UA) Trace H (Negative) g/dL Urine Ketones Negative (NEGATIVE) Urine Occult Blood 3+ H (Negative) Urine Nitrate Negative (Negative) Urine Bilirubin Negative (NEGATIVE) Urine Urobilinogen 0.2 (0.2) E.U./dL Ur Leukocyte Esterase Negative (NEGATIVE) Urine RBC 5-10/hpf H (0-5/HPF) Urine WBC 1-5/hpf (0-5/HPF) Ur Squamous Epith Cells None seen (0-5/HPF) Ur Transition Epith Cell 1-5/hpf (0-5/HPF) Urine Bacteria Few (2-10) H (None) Ur Culture Indicated? Specimen cultured Chlamy pneumoniae PCR (Not Detect) Adenovirus (PCR) (Not Detect) B. pertussis DNA (PCR) (Not Detecte) B.parapertussis DNA PCR (Not Detecte) Coronavirus OC43 (PCR) (Not Detect) Coronavirus HKU1 (PCR) (Not Detect) Coronavirus 229E (PCR) (Not Detect) SARS-CoV-2 (PCR) (Negative) Coronavirus NL63 (PCR) (Not Detect) Human Metapneumovir PCR (Not Detect) Influenza A (RT-PCR) (NEGATIVE) Influenza Type A (PCR) (Not Detect) Influenza B (RT-PCR) (NEGATIVE) Influenza Type B (PCR) (Not Detect) M. pneumoniae (PCR) (Not Detect) Parainfluenza 1 (PCR) (Not Detect) Parainfluenza 2 (PCR) (Not Detect) Parainfluenza 3 (PCR) (Not Detect) Parainfluenza 4 (PCR) (Not Detect) RSV (PCR) (Negative) Entero/Rhino (PCR) (Not Detect) Imaging Data Chest x-ray: Radiologist's Impression: FINDINGS:? ? New left mid lung and left basilar airspace opacity with d stable diffuse bilateral interstitial opacities.? Cardiomegaly again noted. ? IMPRESSION: ? Cardiomegaly with diffuse moderate interstitial and developing alveolar edema in the left mid lung and left lung base.? Superimposed infection in the left lower lobe cannot be strictly excluded however the findings are favored to represent pulmonary edema.? Correlate for leukocytosis and with BNP. ? ? Dictated by: Jeffrey Oliveira M.D. on 02/06/2022 at 19:51 ? ? ECG Data Interpretation: Sinus arrhythmia with first-degree block No acute ischemic changes MDM Narrative Medical decision making narrative: 86-year-old gentleman with increasing weakness, significant hypotension. Urinalysis does suggest source for infection. 19:55 severe sepsis with septic shock is considered. Is in acute congestive heart failure with significant fluid overload. Because of this large volumes of fluid (30 per kilos recommendations per septic protocol) were not initiated. He was given a 500 cc bolus with some effect on improving blood pressure and improved peripheral perfusion. He was started on Levophed peripherally and tolerated this well. Chest x-ray suggests possible pneumonia as well as congestive heart failure. Abdomen is soft and despite his back pain I am not suspicious for AAA or complications, intra-abdominal infection as a source of his presumed sepsis. Did have discussion with patient and his regarding code status. At this point he is a full code. He is started on Zosyn to cover both urine and pulmonary source. Reviewed his care with Dr. Salinas who will be the admitting provider to the ICU. At this time he is not with impending respiratory failure. Additional Information: Severe Sepsis Criteria [ x ] bacterial source of infection suspected and documented [x ] 2 SIRS Criteria met [ ] HR >90 [ x ] RR >20 [ x ] fever or hypothermia [ x ] leukocytosis/leukopenia/bandemia [ ] Evidence of at least 1 organ system dysfunction [ x ] Lactate > 2 [x ] BP < 90 or MAP <65, >40mm decrease from normal baseline [x ] Creat > 2.0 [ ] T. Bili > 2.0 [ ] platelet count < 100k [ x ] altered mental status [ ] mechanical ventilation [x ] provider documentation of severe sepsis Severe Sepsis Determination. the patient has been screened and [ x ] DOES meet criteria for severe sepsis [ ] DOES NOT meet criteria for severe sepsis Goal directed treatment Within 3 hours [x ] blood cx drawn prior to abx [ x] broad spectrum abx started [ x ] lactic acid level checked [ ] lactic redrawn within 6 hours if >2.0 Septic Shock Criteria [ x ] lactic > 4 at any time [ x ] SBP ,90 or MAP , 65 [ x ] documentation of septic shock Time Septic Shock diagnosed: [ 195 ] Septic Shock Determination. the patient has been screened and [ x ] DOES meet criteria for septic shock [ ] DOES NOT meet criteria for septic shock Goal directed therapy within 3 hours of septic shock or initial hypotension [ ] 30ml/kg fluid [ ] ABW used [ ] IBW (33.6) used due to BMI > 30 [ x] patient or advocate declining fluid administration after shared decision making conversation Clinical reason for NOT initiating fluid bolus: Significant congestive heart failure with significant volume overload on clinical exam, chest x-ray and laboratory evaluation Within 6 hours (if continued hypotension after fluids or initial lactate >4) [ ] repeat volume status and tissue perfusion assessment documented after fluid bolus was completed at [Date/Time] Must include vital signs, cardiopulmonary exam, capillary refill, peripheral pulse evaluation, skin exam [ x ] Initiate vasopressor therapy if persistent hypotension after adequate fluid bolus Critical Care Time Critical Care Time Critical Care Time: Yes Total Critical Care Time: 36 Attestation: Critical care time is separate from other billable procedures. There is a high probability of a significant, sudden or life-threatening deterioration that requires my full and direct attention, intervention and personal management. This critical care time includes consultation with family and other consulting doctors, review of records, and interpretation of data from labs, EKGs and imaging as well as managements of septic shock with global weakness and acute congestive heart failure Discharge Plan Departure Patient Disposition: Admitted As Inpatient Clinical Impression: Acute UTI, Acute CHF, Pneumonia, Acute alteration in mental status, Septic shock, History of lung cancer, COPD (chronic obstructive pulmonary disease) Admit Date/Time: 02/06/22 21:24 Admit Provider: Todd Salinas
[2022-02-06] MEDS: NOREPINEPHRINE BITARTRATE/D5W 4 MG/250 ML PLAST..BAG 30 MG IV (20:15)
[2022-02-06 20:27] LABS: Influenza A - CEPHEID Flu A NEGATIVE (NEGATIVE); Influenza B - CEPHEID Flu B NEGATIVE (NEGATIVE); Respiratory Syncytial Virus Negative (Negative)
[2022-02-06 20:29] LABS: COVID-19 CEPHEID 4-PLEX PCR Negative (Negative)
[2022-02-06 20:52] LABS: Appearance Urine UA CLEAR; Bilirubin Urine UA NEGATIVE (NEGATIVE); Color Urine UA YELLOW; Glucose Urine UA TRACE g/dL (Negative); Ketones Urine UA NEGATIVE (NEGATIVE); Leukocyte Esterase Urine UA NEGATIVE (NEGATIVE); Nitrite Urine UA NEGATIVE (Negative); Occult Blood Urine UA 3+ (Negative); Protein Urine UA 1+ (Negative); Urobilinogen Urine UA 0.2 E.U./dL (0.2)
[2022-02-06] MEDS: PIPERACILLIN/TAZO 4.5 GM in SODIUM CHLORIDE 0.9% 100 ML IV (20:52)
[2022-02-06 21:02] LABS: Bacteria Urine Few (2-10); Culture Indicated Urine Specimen Cultured; RBC Urine 5-10/HPF (0-5/HPF); Squamous Epithelial Cell Urine None Seen (0-5/HPF); Transitional Epi Cells Urine 1-5/HPF (0-5/HPF); WBC Urine 1-5/HPF (0-5/HPF)
[2022-02-06 21:20] LABS: Reflexed Lactate in 2 Hours Y
[2022-02-06 21:41] LABS: Adenovirus Not Detected (Not Detect); Coronavirus 229E Not Detected (Not Detect); Coronavirus HKU1 Not Detected (Not Detect); Coronavirus NL 63 Not Detected (Not Detect); SARS- CoV-2 Not Detected (Not Detecte)
[2022-02-06 21:42] LABS: B. parapertussis Not Detected (Not Detecte); Bordetella pertussis Not Detected (Not Detecte); Chlamydophila pneumoniae Not Detected (Not Detect); Coronavirus OC43 Not Detected (Not Detect); Human Metapneumovirus Not Detected (Not Detect); Human Rhinovirus/Enterovirus Not Detected (Not Detect); Influenza A Not Detected (Not Detect); Influenza B Not Detected (Not Detect); Mycoplasma pneumoniae Not Detected (Not Detect); Parainfluenza Virus 1 Not Detected (Not Detect); Parainfluenza Virus 2 Not Detected (Not Detect); Parainfluenza Virus 3 Not Detected (Not Detect); Parainfluenza Virus 4 Not Detected (Not Detect); Respiratory Syncytial Virus Not Detected (Not Detect)
--- NOTE | 2022-02-06 21:46 | P.HP_ITS ---
History of Present Illness History of Present Illness Date Patient Seen: 02/06/22 Time Patient Seen: 21:47 Chief complaint: SOB Narrative: 86-year-old male with known COPD requiring nocturnal oxygen who is admitted via emergency department with evidence of sepsis. He presented too weak to get up off the floor after trying to get into bed and failing apparently. Was found to be hypotensive leukocytosis elevated lactate level a probable urinary source of infection. Patient also has evidence of acute kidney injury with elevated creatinine over baseline, as well as an elevated BUN over baseline. Patient with evidence of congestive heart failure on chest x-ray and an elevated BNP over baseline. He also has a bump in 1 of his transaminases. Troponin was normal and EKG without acute change Patient required pressors for blood pressure management given his elevated BNP and evidence of volume overload it was elected by the ER physician to avoid large volumes fluids and rather try and improve his perfusion with Levophed. Patient has received broad-spectrum IV antibiotics (Zosyn) in the in the emergency department and is admitted to the ICU for continued management Patient also reports worsening dyspnea especially dyspnea with exertion ever s nahomi he had COVID approximately 6 months ago or so. He is also had more severe back pain was seen by his PCP in the clinic 10 days ago or so for severe back pain as well. No clear etiology for his back pain or his dyspnea has thus far been identified Patient History Medical History (Updated 02/06/22 @ 22:50 by Todd Salinas MD) Acute respiratory failure with hypoxia Chronic back pain (~1959) COPD (chronic obstructive pulmonary disease) Gout (~2011) History of urinary incontinence Lung cancer (~2007) Moderate aortic stenosis by prior echocardiogram Pancreatitis (~2005) Vision disorder Surgical History (Updated 02/06/22 @ 22:50 by Todd Salinas MD) Anesthesia History of lung surgery (~03/2007) Family & Social History Family History Father Heart disease Grandmother Age: 82 Ovarian cancer, unspecified laterality Mother Diabetes mellitus Sister No problems noted. Social History: household members significant other Prior Living Arrangements House Safety & Behavioral: Feels Safe in Current Yes Environment Been Physically Hurt or No Threatened By a Person Tobacco & Substance use: Tobacco type cigarettes Smoking Status Current every day smoker alcohol intake current alcohol intake frequency 3 or more drinks per day Substance Use Type does not use Meds Home Medications and Allergies Home Medications Medication Instructions Recorded Confirmed Type aspirin 81 mg chewable tablet 81 mg PO DAILY 12/17/17 01/27/22 History Disabled Parking Permit 1 ea DAILY 06/12/21 02/06/22 History albuterol sulfate 90 mcg/actuation 2 puff inhalation Q4H PRN 06/20/21 01/27/22 Rx aerosol inhaler (Ventolin HFA) Shortness Of Breath #8.5 grams fluticasone 250 mcg-salmeterol 50 See Rx Instructions .Route 06/20/21 01/27/22 Rx mcg/dose blistr powdr for .COMPLEX #60 ea inhalation (Wixela Inhub) inhalational spacing device #1 ea 06/20/21 02/06/22 Rx (BreatheRite MDI Spacer) lisinopril 40 mg tablet See Rx Instructions .Route 12/10/21 01/27/22 Rx .COMPLEX #180 tabs metoprolol tartrate 100 mg tablet See Rx Instructions .Route 12/10/21 01/27/22 Rx .COMPLEX #180 tabs atorvastatin 20 mg tablet See Rx Instructions .Route 12/30/21 01/27/22 Rx .COMPLEX #90 tabs ketorolac 10 mg tablet 10 mg PO Q6H PRN pain #14 tabs 01/08/22 01/27/22 Rx gabapentin 300 mg capsule 300 mg PO BEDTIME #30 caps 01/27/22 01/27/22 Rx lidocaine 5 % topical patch 1 patch topical DAILY #15 ea 01/27/22 01/27/22 Rx (Lidoderm) cyclobenzaprine 10 mg tablet 10 mg PO TID PRN muscle spasm #30 01/29/22 Rx tabs Allergies Allergy/AdvReac Type Severity Reaction Status Date / Time No Known Drug Allergies Allergy Verified 01/27/22 09:34 Review of Systems Review of Systems ROS: Yes All systems reviewed with the patient and are negative except as otherwise documented Exam Vital Signs (past 8 hours): - 02/06/22 19:38 02/06/22 19:23 02/06/22 19:30 Temperature 98.1 F Pulse Rate 64 73 69 Respiratory Rate 26 H 28 H 25 H Blood Pressure 138/98 H Pulse Oximetry 94 96 98 Oxygen Delivery Method Room Air Oxygen Flow Rate 02/06/22 19:34 02/06/22 19:36 02/06/22 19:49 Temperature Pulse Rate 66 67 Respiratory Rate 21 24 Blood Pressure 138/98 H Pulse Oximetry 97 97 Oxygen Delivery Method Oxygen Flow Rate 02/06/22 19:49 02/06/22 19:50 02/06/22 19:55 Temperature Pulse Rate 64 65 64 Respiratory Rate 24 24 25 H Blood Pressure Pulse Oximetry 93 92 96 Oxygen Delivery Method Nasal Cannula Nasal Cannula Oxygen Flow Rate 2 2 02/06/22 19:56 02/06/22 19:56 02/06/22 20:00 Temperature Pulse Rate 63 61 Respiratory Rate 24 22 Blood Pressure 89/50 L Pulse Oximetry 96 96 Oxygen Delivery Method Nasal Cannula Nasal Cannula Oxygen Flow Rate 2 2 02/06/22 20:01 02/06/22 20:01 02/06/22 20:05 Temperature Pulse Rate 61 60 Respiratory Rate 25 H 18 Blood Pressure 86/51 L Pulse Oximetry 95 95 Oxygen Delivery Method Nasal Cannula Nasal Cannula Oxygen Flow Rate 2 2 02/06/22 20:06 02/06/22 20:06 02/06/22 20:07 Temperature Pulse Rate 60 60 Respiratory Rate 29 H 29 H Blood Pressure 85/45 L Pulse Oximetry 95 89 L Oxygen Delivery Method Nasal Cannula Nasal Cannula Oxygen Flow Rate 2 2 02/06/22 20:07 02/06/22 20:09 02/06/22 20:09 Temperature Pulse Rate 64 Respiratory Rate 26 H Blood Pressure 82/44 L 88/50 L Pulse Oximetry Oxygen Delivery Method Oxygen Flow Rate 02/06/22 20:10 02/06/22 20:11 02/06/22 20:11 Temperature Pulse Rate 66 66 Respiratory Rate 30 H 24 Blood Pressure 93/54 L Pulse Oximetry 96 96 Oxygen Delivery Method Nasal Cannula Nasal Cannula Oxygen Flow Rate 2 2 02/06/22 20:15 02/06/22 20:15 02/06/22 20:16 Temperature Pulse Rate 65 65 Respiratory Rate 21 24 Blood Pressure 75/35 L Pulse Oximetry 97 97 Oxygen Delivery Method Nasal Cannula Nasal Cannula Oxygen Flow Rate 2 2 02/06/22 20:16 02/06/22 20:19 02/06/22 20:19 Temperature Pulse Rate 69 Respiratory Rate 30 H Blood Pressure 75/35 L 158/70 H Pulse Oximetry 98 Oxygen Delivery Method Nasal Cannula Oxygen Flow Rate 2 02/06/22 20:20 02/06/22 20:21 02/06/22 20:21 Temperature Pulse Rate 71 72 Respiratory Rate 23 27 H Blood Pressure 158/70 H Pulse Oximetry 98 98 Oxygen Delivery Method Nasal Cannula Nasal Cannula Oxygen Flow Rate 2 2 02/06/22 20:25 02/06/22 20:26 02/06/22 20:26 Temperature Pulse Rate 76 76 Respiratory Rate 22 23 Blood Pressure 154/65 H Pulse Oximetry 98 97 Oxygen Delivery Method Nasal Cannula Nasal Cannula Oxygen Flow Rate 2 2 02/06/22 20:28 02/06/22 20:28 02/06/22 20:30 Temperature Pulse Rate 75 75 Respiratory Rate 25 H 20 Blood Pressure 130/61 Pulse Oximetry 97 98 Oxygen Delivery Method Nasal Cannula Nasal Cannula Oxygen Flow Rate 2 02/06/22 20:31 02/06/22 20:31 02/06/22 20:35 Temperature Pulse Rate 76 Respiratory Rate 23 Blood Pressure 160/71 H 145/61 H Pulse Oximetry 98 Oxygen Delivery Method Nasal Cannula Oxygen Flow Rate 2 02/06/22 20:35 02/06/22 20:40 02/06/22 20:43 Temperature Pulse Rate 76 76 75 Respiratory Rate 21 21 23 Blood Pressure Pulse Oximetry 98 92 90 L Oxygen Delivery Method Nasal Cannula Nasal Cannula Nasal Cannula Oxygen Flow Rate 2 2 2 02/06/22 20:43 02/06/22 20:45 02/06/22 20:46 Temperature Pulse Rate 75 Respiratory Rate 20 Blood Pressure 120/56 L 122/69 Pulse Oximetry 93 Oxygen Delivery Method Nasal Cannula Oxygen Flow Rate 2 02/06/22 20:46 02/06/22 20:50 02/06/22 20:50 Temperature 98.1 F Pulse Rate 75 76 Respiratory Rate 19 18 Blood Pressure 146/61 H Pulse Oximetry 97 98 Oxygen Delivery Method Nasal Cannula Nasal Cannula Oxygen Flow Rate 2 2 02/06/22 20:55 02/06/22 20:55 02/06/22 21:00 Temperature 98.8 F Pulse Rate 76 Respiratory Rate 20 Blood Pressure 125/62 173/64 H Pulse Oximetry 97 Oxygen Delivery Method Nasal Cannula Oxygen Flow Rate 2 02/06/22 21:00 02/06/22 21:05 02/06/22 21:05 Temperature 99.1 F 99.3 F Pulse Rate 75 75 Respiratory Rate 20 20 Blood Pressure 119/56 L Pulse Oximetry 97 97 Oxygen Delivery Method Nasal Cannula Nasal Cannula Oxygen Flow Rate 2 2 02/06/22 21:10 02/06/22 21:10 02/06/22 21:15 Temperature 99.5 F Pulse Rate 75 Respiratory Rate 19 Blood Pressure 122/59 L 108/57 L Pulse Oximetry 97 Oxygen Delivery Method Nasal Cannula Oxygen Flow Rate 2 02/06/22 21:15 02/06/22 21:20 02/06/22 21:23 Temperature 99.5 F 99.5 F 99.5 F Pulse Rate 75 75 75 Respiratory Rate 20 20 19 Blood Pressure Pulse Oximetry 97 95 96 Oxygen Delivery Method Nasal Cannula Nasal Cannula Nasal Cannula Oxygen Flow Rate 2 2 2 02/06/22 21:23 02/06/22 21:25 02/06/22 21:26 Temperature 99.5 F Pulse Rate 75 Respiratory Rate 19 Blood Pressure 113/53 L 143/60 H Pulse Oximetry 97 Oxygen Delivery Method Nasal Cannula Oxygen Flow Rate 2 02/06/22 21:26 02/06/22 21:30 02/06/22 21:30 Temperature 99.5 F 99.5 F Pulse Rate 75 75 Respiratory Rate 19 21 Blood Pressure 98/47 L Pulse Oximetry 96 95 Oxygen Delivery Method Nasal Cannula Nasal Cannula Oxygen Flow Rate 2 2 02/06/22 21:35 02/06/22 21:36 02/06/22 21:36 Temperature 99.5 F 99.5 F Pulse Rate 75 75 Respiratory Rate 22 20 Blood Pressure 128/63 Pulse Oximetry 97 96 Oxygen Delivery Method Nasal Cannula Nasal Cannula Oxygen Flow Rate 2 2 02/06/22 21:40 02/06/22 21:40 Temperature 99.5 F Pulse Rate 77 Respiratory Rate 21 Blood Pressure 129/61 Pulse Oximetry 95 Oxygen Delivery Method Nasal Cannula Oxygen Flow Rate 2 Oxygen Delivery Method Nasal Cannula Oxygen Flow Rate 2 Narrative Exam Narrative: Elderly male in no obvious distress although coarse crackles as he breathes in and out are audible, he is lying in his hospital bed comfortably HEENT-unremarkable Neck-no bruits Lungs-coarse crackles throughout all lung morrow that mostly clear with cough ing, good breath sounds no wheezes maybe a few crackles in the right base Heart-regular rate and rhythm no murmur Abdomen-obese positive bowel tones soft nontender no organomegaly noted no fluid wave Extremities-no cyanosis clubbing or edema Neuro-alert oriented x3 moves all 4 extremities no focal findings not more specifically tested at this time Objective ECG Impression: No evidence of ischemia, essentially no change from previous tracing, plus-minus first-degree AV block Imaging Chest x-ray: Radiologist's impression: PROCEDURE:? XR CHEST 1V ? INDICATIONS:? weakness, cough ? TECHNIQUE:? One view of the chest was acquired.? ? COMPARISON:? [facility], CR, XR CHEST 1V, 06/11/2021, 8:54. ? FINDINGS:? ? New left mid lung and left basilar airspace opacity with d stable diffuse bilateral interstitial opacities.? Cardiomegaly again noted. ? IMPRESSION: ? Cardiomegaly with diffuse moderate interstitial and developing alveolar edema in the left mid lung and left lung base.? Superimposed infection in the left lower lobe cannot be strictly excluded however the findings are favored to represent pulmonary edema.? Correlate for leukocytosis and with BNP. Labs Result Diagrams: 02/06/22 19:20 02/06/22 19:20 Labs: Laboratory Results - last 24 hr 02/06/22 02/06/22 02/06/22 19:20 19:20 19:20 WBC 24.4 H RBC 3.90 L Hgb 11.6 L Hct 35.7 L MCV 91.6 MCH 29.7 MCHC 32.4 RDW 14.8 Plt Count 227 Neut % (Auto) Not Reportable Lymph % (Auto) Not Reportable [place] % (Auto) Not Reportable Eos % (Auto) Not Reportable Baso % (Auto) Not Reportable Lymph # (Auto) Not Reportable [place] # (Auto) Not Reportable Baso # (Auto) Not Reportable Total Counted 100 Seg Neutrophils % 80.0 H Band Neutrophils % 7.0 Lymphocytes % (Manual) 3.0 L Monocytes % (Manual) 8.0 Eosinophils % (Manual) 1.0 L Metamyelocytes % 1.0 H Neutrophils # (Manual) 54109 H RBC Morphology Normal morphology Sodium 136 L Potassium 5.2 H Chloride 102 Carbon Dioxide 18 L BUN 59 H Creatinine 2.54 H Estimated GFR 24 L BUN/Creatinine Ratio 23.2 H Glucose 118 H Lactate Calcium 9.1 Magnesium 1.4 L Total Bilirubin 0.5 AST 113 H ALT 34 Alkaline Phosphatase 64 Troponin I 0.025 NT-Pro-B Natriuret Pep 4650 H Total Protein 7.2 Albumin 3.9 Globulin 3.3 Albumin/Globulin Ratio 1.2 Procalcitonin 9.74 H Urine Color Urine Appearance Urine pH Ur Specific [place] Urine Protein Urine Glucose (UA) Urine Ketones Urine Occult Blood Urine Nitrate Urine Bilirubin Urine Urobilinogen Ur Leukocyte Esterase Urine RBC Urine WBC Ur Squamous Epith Cells Ur Transition Epith Cell Urine Bacteria Ur Culture Indicated? Chlamy pneumoniae PCR Adenovirus (PCR) B. pertussis DNA (PCR) B.parapertussis DNA PCR Coronavirus OC43 (PCR) Coronavirus HKU1 (PCR) Coronavirus 229E (PCR) SARS-CoV-2 (PCR) Coronavirus NL63 (PCR) Human Metapneumovir PCR Influenza A (RT-PCR) Influenza Type A (PCR) Influenza B (RT-PCR) Influenza Type B (PCR) M. pneumoniae (PCR) Parainfluenza 1 (PCR) Parainfluenza 2 (PCR) Parainfluenza 3 (PCR) Parainfluenza 4 (PCR) RSV (PCR) Entero/Rhino (PCR) 02/06/22 02/06/22 02/06/22 19:20 19:25 19:25 WBC RBC Hgb Hct MCV MCH MCHC RDW Plt Count Neut % (Auto) Lymph % (Auto) [place] % (Auto) Eos % (Auto) Baso % (Auto) Lymph # (Auto) [place] # (Auto) Baso # (Auto) Total Counted Seg Neutrophils % Band Neutrophils % Lymphocytes % (Manual) Monocytes % (Manual) Eosinophils % (Manual) Metamyelocytes % Neutrophils # (Manual) RBC Morphology Sodium Potassium Chloride Carbon Dioxide BUN Creatinine Estimated GFR BUN/Creatinine Ratio Glucose Lactate 5.9 H* Calcium Magnesium Total Bilirubin AST ALT Alkaline Phosphatase Troponin I NT-Pro-B Natriuret Pep Total Protein Albumin Globulin Albumin/Globulin Ratio Procalcitonin Urine Color Urine Appearance Urine pH Ur Specific [place] Urine Protein Urine Glucose (UA) Urine Ketones Urine Occult Blood Urine Nitrate Urine Bilirubin Urine Urobilinogen Ur Leukocyte Esterase Urine RBC Urine WBC Ur Squamous Epith Cells Ur Transition Epith Cell Urine Bacteria Ur Culture Indicated? Chlamy pneumoniae PCR Not detected Adenovirus (PCR) Not detected B. pertussis DNA (PCR) Not detected B.parapertussis DNA PCR Not detected Coronavirus OC43 (PCR) Not detected Coronavirus HKU1 (PCR) Not detected Coronavirus 229E (PCR) Not detected SARS-CoV-2 (PCR) Negative Not detected Coronavirus NL63 (PCR) Not detected Human Metapneumovir PCR Not detected Influenza A (RT-PCR) Flu a negative Influenza Type A (PCR) Not detected Influenza B (RT-PCR) Flu b negative Influenza Type B (PCR) Not detected M. pneumoniae (PCR) Not detected Parainfluenza 1 (PCR) Not detected Parainfluenza 2 (PCR) Not detected Parainfluenza 3 (PCR) Not detected Parainfluenza 4 (PCR) Not detected RSV (PCR) Negative Not detected Entero/Rhino (PCR) Not detected 02/06/22 20:45 WBC RBC Hgb Hct MCV MCH MCHC RDW Plt Count Neut % (Auto) Lymph % (Auto) [place] % (Auto) Eos % (Auto) Baso % (Auto) Lymph # (Auto) [place] # (Auto) Baso # (Auto) Total Counted Seg Neutrophils % Band Neutrophils % Lymphocytes % (Manual) Monocytes % (Manual) Eosinophils % (Manual) Metamyelocytes % Neutrophils # (Manual) RBC Morphology Sodium Potassium Chloride Carbon Dioxide BUN Creatinine Estimated GFR BUN/Creatinine Ratio Glucose Lactate Calcium Magnesium Total Bilirubin AST ALT Alkaline Phosphatase Troponin I NT-Pro-B Natriuret Pep Total Protein Albumin Globulin Albumin/Globulin Ratio Procalcitonin Urine Color Yellow Urine Appearance Clear Urine pH 5.0 Ur Specific [place] 1.020 Urine Protein 1+ H Urine Glucose (UA) Trace H Urine Ketones Negative Urine Occult Blood 3+ H Urine Nitrate Negative Urine Bilirubin Negative Urine Urobilinogen 0.2 Ur Leukocyte Esterase Negative Urine RBC 5-10/hpf H Urine WBC 1-5/hpf Ur Squamous Epith Cells None seen Ur Transition Epith Cell 1-5/hpf Urine Bacteria Few (2-10) H Ur Culture Indicated? Specimen cultured Chlamy pneumoniae PCR Adenovirus (PCR) B. pertussis DNA (PCR) B.parapertussis DNA PCR Coronavirus OC43 (PCR) Coronavirus HKU1 (PCR) Coronavirus 229E (PCR) SARS-CoV-2 (PCR) Coronavirus NL63 (PCR) Human Metapneumovir PCR Influenza A (RT-PCR) Influenza Type A (PCR) Influenza B (RT-PCR) Influenza Type B (PCR) M. pneumoniae (PCR) Parainfluenza 1 (PCR) Parainfluenza 2 (PCR) Parainfluenza 3 (PCR) Parainfluenza 4 (PCR) RSV (PCR) Entero/Rhino (PCR) Assessment & Plan Assessment & Plan narrative: 1. Infectious disease-patient with probable urinary source of his infection. Blood cultures and urine culture have been obtained. Given a dose of Zosyn in the emergency department. I would continue that for now at renal dose for his creatinine clearance of approximately 39. He may also have a respiratory source for infection with his known COPD and prior history of lung cancer etcetera. Zosyn should be inappropriate antibiotic for this as well. Consider repeat chest x-ray in the morning depending on clinical course. 2. Acute kidney injury-patient with chronic renal failure with a GFR in the 40s now at 24. Creatinine clearance calculates to 39. Given his elevated BNP and evidence of congestive heart failure on chest x-ray hesitant to volume replace him at this point. Hopefully with increased perfusion with the Levophed we will have improvement in his renal function. Continue to monitor and repeat numbers in the morning 3. Respiratory-patient with known COPD chronically on steroid inhaler with as n eeded albuterol and uses oxygen at night. Will continue monitor his him for hypoxia and replace oxygen as necessary up to and including BiPAP and or intubation if necessary as patient has expressed wishes to be a full code including intubation if necessary. At this point he is not really symptomatic and do not believe he requires parental steroids or anything beyond albuterol nebulizers and oxygen replacement therapy as necessary 4. Cardiac-patient with a presumed diagnosis of coronary disease based on classic symptoms although he had a negative myocardial perfusion scan many years ago is been treated as though he does have coronary disease. Unclear whether not he seeing Cardiology in no notes are available to me at this time. He is normally on beta-amilcar therapy with metoprolol as well as lisinopril his hypotension will need to hold both of those but return him to least low-dose beta-amilcar therapy as soon as is appropriate. Continue with his other medications for secondary prevention including a statin therapy and aspirin. Patient also with evidence of congestive heart failure he is felt to have chronic congestive heart failure with a preserved ejection fraction least based on echo in June 2021. Was also noted to have moderate aortic stenosis out secondary change on the echo in June 2021. Seems unlikely that is playing a role at this time but Plan to repeat echo at this time. I do not believe he would tolerate any sort of diuretic therapy etcetera (at this time) and hopefully if we can improve his renal function he will begin to diurese and had some improvement in his overall volume overload. If however his blood pressure stabilize without the use of pressors etcetera he may tolerate some gentle diuresis. Echocardiography will probably be helpful in determining the acuity of need for diuretic therapy. Patient with no changes on EKG and normal troponin I do not believe this is an ischemic cardiac event as part of his presentation 5. Obesity-patient borderline morbidly obese with BMI right at about 40 dating back to 2016. This will complicate his care in probably is a contributing factor to his need for nocturnal oxygen etcetera. Monitor for evidence of diabetes etcetera which thus far does not seem to be present historically or at the current time. 6. VTE prophylaxis-Lovenox at usual doses safe and should be employed 7. Code status-per ER physician patient's specifically asked and is agreeable to full code would want to be resuscitated in the event of a sudden cardiac or respiratory arrest or event up to and including intubation etcetera. I will also consult the tele jointer operator for additional assistance in managing t his patient, especially as I am concerned about possible respiratory decline etcetera. Time Spent With Patient Critical Care time: I spent a total of 60 minutes of critical care time on this patient's care today; this time is exclusive of procedural time. Quality VTE Deep Vein Thrombosis/Pulmonary Embolism Present on Admission: No
[2022-02-06 21:56] LABS: Lactate 2HR (Lactic Acid Rflx) 0.9 mmol/L (0.7-2.1)
--- NOTE | 2022-02-06 22:31 | DI.ECHO.S_ITS ---
[facility] +---------+ : : [address] : [place] : : : : [id number] : : : : Phone: [phone]+ Echocardiogram Report + + :Name: BOAZ ROXI Tiwari Study Date: 02/07/2022 Height: 71 in : :[facility] ReadingLocation: Weight: 275 lb : : Gender: Male BSA: 2.4 m2 : :: 1935 Age: 86 yrs BP: 130/60 mmHg: :Reason For Study: Congestive Heart Failure : :Ordering Physician: ZANE, : :ROXI Tiwari Performed By: Efren Shen : :Referring: ROXI DEGROOT : + + Interpretation Summary Normal sinus rhythm. Normal LV size and mildly increased wall thickness. Normal wall motion and left ventricular systolic function. Ejection fraction is 55-60%. Severe biatrial enlargement. There is a small possible patent foramen ovale appreciated on subcostal views. Aortic valve leaflets are moderately thickened and calcified. Aortic valve is a trileaflet structure with severely reduced leaflet excursion. There is severe associated aortic stenosis. Peak velocity is 4 m/s, mean gradient is 39 mmHg and calculated aortic valve area is 1.3 aged or disabled carer?. Moderate mitral annular calcification. Compared to prior study performed June 11, 2021, aortic stenosis got a little bit worse. Peak velocity edelmira from 3.7 m/s to 4 m/s. Mean gradient edelmira from 32mmHg to 39 mmHg. RV dilation is less pronounced. PFO is newly appreciated. Procedure: A two-dimensional transthoracic echocardiogram with color flow and Doppler was performed. The study quality was technically adequate. Comparison is made with the echocardiogram of 06/11/2021. The patient was in normal sinus rhythm during the exam. Left Ventricle: The left ventricle is normal in size and wall thickness. Left ventricular systolic function is normal. The ejection fraction is estimated to be 55-60%. There are no focal wall motion abnormalities. Diastolic function could not be accurately assessed due to confounding valvular disease. Right Ventricle: The right ventricle is normal in size and function. Atria: Both atria are severely dilated. Mitral Valve: There is mild mitral annular calcification. The mitral valve leaflets are mildly calcified. There is mild mitral regurgitation. Aortic Valve: The aortic valve is moderately calcified. There is severe aortic stenosis. The aortic valve mean gradient is 39 mmHg. The peak aortic velocity is 4 m/sec. No aortic regurgitation is present. Tricuspid Valve: The tricuspid valve is normal in structure and function. No tricuspid regurgitation. Pulmonary artery pressures cannot be estimated because of the lack of a measurable TR jet velocity. Pulmonic Valve: The pulmonic valve is not well visualized. There is no pulmonic valvular regurgitation. Great Vessels: The aortic root is normal size. The dimensions of the ascending aorta are normal. The IVC is of normal diameter and collapses greater than 50% with a sniff. This suggests a low right atrial pressure of 3 mm Hg. Pericardium/ Pleura There is no pericardial effusion. There is no pleural effusion. MMode/2D Measurements & Calculations LVIDd: 5.4 cm LVOT diam: 2.4 cm LVIDs: 3.6 cm Ao root diam: 3.1 cm FS: 32.8 % IVSd: 1.1 cm LVPWd: 1.1 cm LV corbin. diameter/BSA (cm/m^2): 2.2 LV sys. diameter/BSA (cm/m^2): 1.5 LA A2 area: 33.7 cm2 RA long axis: 7.2 cm LA A4 area: 37.2 cm2 RA area: 27.7 cm2 LA length (vol): 7.6 cm RA vol: 90.3 ml LA vol: 140.2 ml RA : 37.4 ml/m2 LA vol index: 58.1 ml/m2 TAPSE: 2.7 cm Doppler Measurements & Calculations Ao V2 max: 402.1 cm/sec LVOT Max Johnathan: 123.2 cm/sec Ao V2 mean: 297.0 cm/sec LV V1 max P.1 mmHg Ao max P.7 mmHg LV V1 VTI: 26.8 cm Ao mean P.8 mmHg IRAIDA(I,D): 1.3 cm2 Ao V2 VTI: 90.4 cm IRAIDA(V,D): 1.4 cm2 sev ratio: 0.30 IRAIDA indexed to BSA (cm^2/m^2): 0.56 MV E max johnathan: 112.4 cm/sec SV(LVOT): 121.7 ml MV A max johnathan: 132.7 cm/sec MV E/A: 0.85 Med Peak E' Johnathan: 4.0 cm/sec E/E' med: 28.0 Lat Peak E' Johnathan: 6.6 cm/sec E/E' lat: 16.9 E/e' average: 22.5 MV dec time: 0.29 sec Electronically signed by: Jenny Ames M.D. on Reading Physician:02/07/2022 11:40 AM
[2022-02-07] VITALS (64 sets, daily range): BP systolic 80–130; BP diastolic 44–66; PULSE 59–92; RESP 15–33; TEMP 36.9–37.4; O2SAT 89–98
--- NOTE | 2022-02-07 00:21 | PC.NURSE ---
Addendum entered by Jojo Hardin R.N. 02/07/22 05:54: 0530- Patient stated that he needed to have a bowel movement. Patient assisted to the bed sinha. Patient unable to go. Patient states his abdomen is painful in the lower quadrants. Bowel tones are present and abdomen is soft though obese. Will monitor. Addendum entered by Jojo Hardin R.N. 02/07/22 03:09: 0230- Levophed off. Pressures labile but mean is above 60. Will monitor. Original Note: 2200- Patient admitted to room 227. Patient alert and oriented, cooperative. Patient BP is soft, Levophed gtt infusing per order. Dr. Salinas at bedside. Plan to consult the Assistant To The President group. MRSA swab sent per protocol. Dr. Novoa from Emergency will place a central line if one is required. 2230- Levophed gtt off. 2300- Levophed gtt restarted at 4mic/min to keep Map greater than 60. Will monitor.
--- NOTE | 2022-02-07 01:52 | PM.CN.EICU ---
History of Present Illness Consult details IF CAMERA ACTIVATED, patient seen via real-time interactive audiovisual communication: Camera activated Chief complaint: SOB Consent obtained for tele-speech pathologist assistant care: Yes Patient Location: ICU Provider location (State): [place] Other participants/roles: RN Narrative: 86 y.o. male w/ PMHx of HFpEF, COPD on 2L home O2, lung CA, CKD3 and HTN who called paramedics after being unable to extricate himself from between the wall and his bed after a fall. He had systolic hypotension in the 80s. Lactate was 5.9 and he had an JAYCEE with a creatinine of 2.54 up from an apparent baseline of 1.43. WBC was 24.4. UA/urine micro were unimpressive but a urine culture was reflexed. pCXR showed evidence of pulmonary vascular congestion but also evidence of L > R bibasilar infiltrates. He was started on a norepinephrine infusion; this was transiently weaned off but had to be restarted shortly after ICU arrival. Repeat lactate has normalized. BNP was also elevated @ 4650. [facility] Medical History Acute respiratory failure with hypoxia Chronic back pain (~1959) COPD (chronic obstructive pulmonary disease) Gout (~2011) History of urinary incontinence Lung cancer (~2007) Moderate aortic stenosis by prior echocardiogram Pancreatitis (~2005) Vision disorder Surgical History Anesthesia History of lung surgery (~03/2007) Family History Father Heart disease Grandmother Age: 82 Ovarian cancer, unspecified laterality Mother Diabetes mellitus Sister No problems noted. Social History marital status: household members: significant other Smoking Status: Current every day smoker alcohol intake: current substance use type: does not use Current Medications Current Medications Medications: Home Medications aspirin 81 mg chewable tablet 81 mg PO DAILY 12/17/17 [History Confirmed 01/27/22] Disabled Parking Permit 1 ea DAILY 06/12/21 [History Confirmed 02/06/22] albuterol sulfate 90 mcg/actuation aerosol inhaler (Ventolin HFA) 2 puff inhalation Q4H PRN Shortness Of Breath #8.5 grams 06/20/21 [Rx Confirmed 01/27/22] fluticasone 250 mcg-salmeterol 50 mcg/dose blistr powdr for inhalation (Margaret Meza) See Rx Instructions .Route .COMPLEX #60 ea 06/20/21 [Rx Confirmed 01/27/22] inhalational spacing device (BreatheRite MDI Spacer) #1 ea 06/20/21 [Rx Confirmed 02/06/22] lisinopril 40 mg tablet See Rx Instructions .Route .COMPLEX #180 tabs 12/10/21 [Rx Confirmed 01/27/22] metoprolol tartrate 100 mg tablet See Rx Instructions .Route .COMPLEX #180 tabs 12/10/21 [Rx Confirmed 01/27/22] atorvastatin 20 mg tablet See Rx Instructions .Route .COMPLEX #90 tabs 12/30/21 [Rx Confirmed 01/27/22] ketorolac 10 mg tablet 10 mg PO Q6H PRN pain #14 tabs 01/08/22 [Rx Confirmed 01/27/22] gabapentin 300 mg capsule 300 mg PO BEDTIME #30 caps 01/27/22 [Rx Confirmed 01/27/22] lidocaine 5 % topical patch (Lidoderm) 1 patch topical DAILY #15 ea 01/27/22 [Rx Confirmed 01/27/22] cyclobenzaprine 10 mg tablet 10 mg PO TID PRN muscle spasm #30 tabs 01/29/22 [Rx] Visit Medications (administered) Generic Name Dose Route Start Last Admin Trade Name Freq PRN Reason Stop Dose Admin NOREPINEPHRINE BITARTRATE/D5W 4 mg in 250 mls @ 30 mls/hr 02/06/22 20:15 02/06/22 23:27 Levophed IV 4 mcg/min TITRATE MARTIN 15 mls/hr Titration Protocol 8 MCG/MIN Exam Vital Signs (past 8 hours): - 02/06/22 19:38 02/06/22 19:23 02/06/22 19:30 Temperature 98.1 F Pulse Rate 64 73 69 Respiratory Rate 26 H 28 H 25 H Blood Pressure 138/98 H Pulse Oximetry 94 96 98 Oxygen Delivery Method Room Air Oxygen Flow Rate 02/06/22 19:34 02/06/22 19:36 02/06/22 19:49 Temperature Pulse Rate 66 67 Respiratory Rate 21 24 Blood Pressure 138/98 H Pulse Oximetry 97 97 Oxygen Delivery Method Oxygen Flow Rate 02/06/22 19:49 02/06/22 19:50 02/06/22 19:55 Temperature Pulse Rate 64 65 64 Respiratory Rate 24 24 25 H Blood Pressure Pulse Oximetry 93 92 96 Oxygen Delivery Method Nasal Cannula Nasal Cannula Oxygen Flow Rate 2 2 02/06/22 19:56 02/06/22 19:56 02/06/22 20:00 Temperature Pulse Rate 63 61 Respiratory Rate 24 22 Blood Pressure 89/50 L Pulse Oximetry 96 96 Oxygen Delivery Method Nasal Cannula Nasal Cannula Oxygen Flow Rate 2 2 02/06/22 20:01 02/06/22 20:01 02/06/22 20:05 Temperature Pulse Rate 61 60 Respiratory Rate 25 H 18 Blood Pressure 86/51 L Pulse Oximetry 95 95 Oxygen Delivery Method Nasal Cannula Nasal Cannula Oxygen Flow Rate 2 2 02/06/22 20:06 02/06/22 20:06 02/06/22 20:07 Temperature Pulse Rate 60 60 Respiratory Rate 29 H 29 H Blood Pressure 85/45 L Pulse Oximetry 95 89 L Oxygen Delivery Method Nasal Cannula Nasal Cannula Oxygen Flow Rate 2 2 02/06/22 20:07 02/06/22 20:09 02/06/22 20:09 Temperature Pulse Rate 64 Respiratory Rate 26 H Blood Pressure 82/44 L 88/50 L Pulse Oximetry Oxygen Delivery Method Oxygen Flow Rate 02/06/22 20:10 02/06/22 20:11 02/06/22 20:11 Temperature Pulse Rate 66 66 Respiratory Rate 30 H 24 Blood Pressure 93/54 L Pulse Oximetry 96 96 Oxygen Delivery Method Nasal Cannula Nasal Cannula Oxygen Flow Rate 2 2 02/06/22 20:15 02/06/22 20:15 02/06/22 20:16 Temperature Pulse Rate 65 65 Respiratory Rate 21 24 Blood Pressure 75/35 L Pulse Oximetry 97 97 Oxygen Delivery Method Nasal Cannula Nasal Cannula Oxygen Flow Rate 2 2 02/06/22 20:16 02/06/22 20:19 02/06/22 20:19 Temperature Pulse Rate 69 Respiratory Rate 30 H Blood Pressure 75/35 L 158/70 H Pulse Oximetry 98 Oxygen Delivery Method Nasal Cannula Oxygen Flow Rate 2 02/06/22 20:20 02/06/22 20:21 02/06/22 20:21 Temperature Pulse Rate 71 72 Respiratory Rate 23 27 H Blood Pressure 158/70 H Pulse Oximetry 98 98 Oxygen Delivery Method Nasal Cannula Nasal Cannula Oxygen Flow Rate 2 2 02/06/22 20:25 02/06/22 20:26 02/06/22 20:26 Temperature Pulse Rate 76 76 Respiratory Rate 22 23 Blood Pressure 154/65 H Pulse Oximetry 98 97 Oxygen Delivery Method Nasal Cannula Nasal Cannula Oxygen Flow Rate 2 2 02/06/22 20:28 02/06/22 20:28 02/06/22 20:30 Temperature Pulse Rate 75 75 Respiratory Rate 25 H 20 Blood Pressure 130/61 Pulse Oximetry 97 98 Oxygen Delivery Method Nasal Cannula Nasal Cannula Oxygen Flow Rate 2 02/06/22 20:31 02/06/22 20:31 02/06/22 20:35 Temperature Pulse Rate 76 Respiratory Rate 23 Blood Pressure 160/71 H 145/61 H Pulse Oximetry 98 Oxygen Delivery Method Nasal Cannula Oxygen Flow Rate 2 02/06/22 20:35 02/06/22 20:40 02/06/22 20:43 Temperature Pulse Rate 76 76 75 Respiratory Rate 21 21 23 Blood Pressure Pulse Oximetry 98 92 90 L Oxygen Delivery Method Nasal Cannula Nasal Cannula Nasal Cannula Oxygen Flow Rate 2 2 2 02/06/22 20:43 02/06/22 20:45 02/06/22 20:46 Temperature Pulse Rate 75 Respiratory Rate 20 Blood Pressure 120/56 L 122/69 Pulse Oximetry 93 Oxygen Delivery Method Nasal Cannula Oxygen Flow Rate 2 02/06/22 20:46 02/06/22 20:50 02/06/22 20:50 Temperature 98.1 F Pulse Rate 75 76 Respiratory Rate 19 18 Blood Pressure 146/61 H Pulse Oximetry 97 98 Oxygen Delivery Method Nasal Cannula Nasal Cannula Oxygen Flow Rate 2 2 02/06/22 20:55 02/06/22 20:55 02/06/22 21:00 Temperature 98.8 F Pulse Rate 76 Respiratory Rate 20 Blood Pressure 125/62 173/64 H Pulse Oximetry 97 Oxygen Delivery Method Nasal Cannula Oxygen Flow Rate 2 02/06/22 21:00 02/06/22 21:05 02/06/22 21:05 Temperature 99.1 F 99.3 F Pulse Rate 75 75 Respiratory Rate 20 20 Blood Pressure 119/56 L Pulse Oximetry 97 97 Oxygen Delivery Method Nasal Cannula Nasal Cannula Oxygen Flow Rate 2 2 02/06/22 21:10 02/06/22 21:10 02/06/22 21:15 Temperature 99.5 F Pulse Rate 75 Respiratory Rate 19 Blood Pressure 122/59 L 108/57 L Pulse Oximetry 97 Oxygen Delivery Method Nasal Cannula Oxygen Flow Rate 2 02/06/22 21:15 02/06/22 21:20 02/06/22 21:23 Temperature 99.5 F 99.5 F 99.5 F Pulse Rate 75 75 75 Respiratory Rate 20 20 19 Blood Pressure Pulse Oximetry 97 95 96 Oxygen Delivery Method Nasal Cannula Nasal Cannula Nasal Cannula Oxygen Flow Rate 2 2 2 02/06/22 21:23 02/06/22 21:25 02/06/22 21:26 Temperature 99.5 F Pulse Rate 75 Respiratory Rate 19 Blood Pressure 113/53 L 143/60 H Pulse Oximetry 97 Oxygen Delivery Method Nasal Cannula Oxygen Flow Rate 2 02/06/22 21:26 02/06/22 21:30 02/06/22 21:30 Temperature 99.5 F 99.5 F Pulse Rate 75 75 Respiratory Rate 19 21 Blood Pressure 98/47 L Pulse Oximetry 96 95 Oxygen Delivery Method Nasal Cannula Nasal Cannula Oxygen Flow Rate 2 2 02/06/22 21:35 02/06/22 21:36 02/06/22 21:36 Temperature 99.5 F 99.5 F Pulse Rate 75 75 Respiratory Rate 22 20 Blood Pressure 128/63 Pulse Oximetry 97 96 Oxygen Delivery Method Nasal Cannula Nasal Cannula Oxygen Flow Rate 2 2 02/06/22 21:40 02/06/22 21:40 02/06/22 21:45 Temperature 99.5 F Pulse Rate 77 Respiratory Rate 21 Blood Pressure 129/61 129/66 Pulse Oximetry 95 Oxygen Delivery Method Nasal Cannula Oxygen Flow Rate 2 02/06/22 21:45 02/06/22 21:50 02/06/22 21:50 Temperature 99.5 F 99.5 F Pulse Rate 78 78 Respiratory Rate 22 20 Blood Pressure 139/65 Pulse Oximetry 95 97 Oxygen Delivery Method Nasal Cannula Nasal Cannula Oxygen Flow Rate 2 2 02/06/22 21:55 02/06/22 21:55 02/06/22 22:14 Temperature 99.5 F 99.5 F Pulse Rate 77 81 Respiratory Rate 20 23 Blood Pressure 136/57 L Pulse Oximetry 97 93 Oxygen Delivery Method Nasal Cannula Nasal Cannula Oxygen Flow Rate 2 2 02/06/22 22:14 02/06/22 22:15 02/06/22 22:20 Temperature 99.5 F 99.5 F Pulse Rate 81 80 Respiratory Rate 26 H 23 Blood Pressure 151/73 H Pulse Oximetry 95 95 Oxygen Delivery Method Nasal Cannula Oxygen Flow Rate 2 02/06/22 22:22 02/06/22 22:22 02/06/22 22:25 Temperature 99.5 F 99.5 F Pulse Rate 80 79 Respiratory Rate 22 22 Blood Pressure 177/80 H Pulse Oximetry 95 94 Oxygen Delivery Method Oxygen Flow Rate 02/06/22 22:30 02/06/22 22:30 02/06/22 22:46 Temperature 99.5 F Pulse Rate 75 Respiratory Rate 20 Blood Pressure 116/58 L 77/46 L Pulse Oximetry 93 Oxygen Delivery Method Oxygen Flow Rate 02/06/22 22:46 02/06/22 22:50 02/06/22 22:50 Temperature 99.5 F 99.5 F Pulse Rate 68 70 Respiratory Rate 20 21 Blood Pressure 89/50 L Pulse Oximetry 93 94 Oxygen Delivery Method Oxygen Flow Rate 02/06/22 23:00 02/06/22 23:00 02/06/22 23:01 Temperature 99.5 F Pulse Rate 65 Respiratory Rate 21 Blood Pressure 75/39 L 70/46 L Pulse Oximetry 93 Oxygen Delivery Method Oxygen Flow Rate 02/06/22 23:01 02/06/22 23:00 02/06/22 23:05 Temperature 99.5 F 99.5 F Pulse Rate 66 66 Respiratory Rate 22 20 Blood Pressure Pulse Oximetry 94 94 Oxygen Delivery Method Nasal Cannula Oxygen Flow Rate 1 02/06/22 23:05 02/06/22 23:16 02/06/22 23:16 Temperature 99.3 F Pulse Rate 64 Respiratory Rate 22 Blood Pressure 76/37 L 92/50 L Pulse Oximetry 94 Oxygen Delivery Method Oxygen Flow Rate 02/06/22 23:31 02/06/22 23:31 02/06/22 23:45 Temperature 99.3 F 99.1 F Pulse Rate 66 65 Respiratory Rate 20 21 Blood Pressure 100/54 L Pulse Oximetry 94 94 Oxygen Delivery Method Oxygen Flow Rate 02/06/22 23:45 02/07/22 00:00 02/07/22 00:01 Temperature 99.1 F Pulse Rate 64 Respiratory Rate 19 Blood Pressure 98/53 L 105/58 L Pulse Oximetry 95 Oxygen Delivery Method Oxygen Flow Rate 02/07/22 00:01 02/07/22 00:16 02/07/22 00:16 Temperature 99.1 F 99.0 F Pulse Rate 64 62 Respiratory Rate 21 21 Blood Pressure 98/49 L Pulse Oximetry 95 95 Oxygen Delivery Method Oxygen Flow Rate 02/07/22 00:30 02/07/22 00:30 02/07/22 00:45 Temperature 99.0 F 99.0 F Pulse Rate 62 60 Respiratory Rate 20 19 Blood Pressure 112/54 L Pulse Oximetry 95 95 Oxygen Delivery Method Oxygen Flow Rate 1 02/07/22 00:45 02/07/22 01:00 02/07/22 01:00 Temperature 98.8 F Pulse Rate 60 Respiratory Rate 25 H Blood Pressure 108/53 L 118/61 Pulse Oximetry 95 Oxygen Delivery Method Oxygen Flow Rate 1 Oxygen Delivery Method Nasal Cannula Oxygen Flow Rate 1 Const General: comfortable Resp Effort & Inspection: normal respiratory effort Objective Labs Result Diagrams: 02/06/22 19:20 02/06/22 19:20 Labs: Laboratory Results - last 24 hr 02/06/22 02/06/22 02/06/22 19:20 19:20 19:20 WBC 24.4 H RBC 3.90 L Hgb 11.6 L Hct 35.7 L MCV 91.6 MCH 29.7 MCHC 32.4 RDW 14.8 Plt Count 227 Neut % (Auto) Not Reportable Lymph % (Auto) Not Reportable [place] % (Auto) Not Reportable Eos % (Auto) Not Reportable Baso % (Auto) Not Reportable Lymph # (Auto) Not Reportable [place] # (Auto) Not Reportable Baso # (Auto) Not Reportable Total Counted 100 Seg Neutrophils % 80.0 H Band Neutrophils % 7.0 Lymphocytes % (Manual) 3.0 L Monocytes % (Manual) 8.0 Eosinophils % (Manual) 1.0 L Metamyelocytes % 1.0 H Neutrophils # (Manual) 55717 H RBC Morphology Normal morphology Sodium 136 L Potassium 5.2 H Chloride 102 Carbon Dioxide 18 L BUN 59 H Creatinine 2.54 H Estimated GFR 24 L BUN/Creatinine Ratio 23.2 H Glucose 118 H Lactate Calcium 9.1 Magnesium 1.4 L Total Bilirubin 0.5 AST 113 H ALT 34 Alkaline Phosphatase 64 Troponin I 0.025 NT-Pro-B Natriuret Pep 4650 H Total Protein 7.2 Albumin 3.9 Globulin 3.3 Albumin/Globulin Ratio 1.2 Procalcitonin 9.74 H Urine Color Urine Appearance Urine pH Ur Specific [place] Urine Protein Urine Glucose (UA) Urine Ketones Urine Occult Blood Urine Nitrate Urine Bilirubin Urine Urobilinogen Ur Leukocyte Esterase Urine RBC Urine WBC Ur Squamous Epith Cells Ur Transition Epith Cell Urine Bacteria Ur Culture Indicated? Nasal Screen MRSA (PCR) Chlamy pneumoniae PCR Adenovirus (PCR) B. pertussis DNA (PCR) B.parapertussis DNA PCR Coronavirus OC43 (PCR) Coronavirus HKU1 (PCR) Coronavirus 229E (PCR) SARS-CoV-2 (PCR) Coronavirus NL63 (PCR) Human Metapneumovir PCR Influenza A (RT-PCR) Influenza Type A (PCR) Influenza B (RT-PCR) Influenza Type B (PCR) M. pneumoniae (PCR) Parainfluenza 1 (PCR) Parainfluenza 2 (PCR) Parainfluenza 3 (PCR) Parainfluenza 4 (PCR) RSV (PCR) Entero/Rhino (PCR) 02/06/22 02/06/22 02/06/22 19:20 19:25 19:25 WBC RBC Hgb Hct MCV MCH MCHC RDW Plt Count Neut % (Auto) Lymph % (Auto) [place] % (Auto) Eos % (Auto) Baso % (Auto) Lymph # (Auto) [place] # (Auto) Baso # (Auto) Total Counted Seg Neutrophils % Band Neutrophils % Lymphocytes % (Manual) Monocytes % (Manual) Eosinophils % (Manual) Metamyelocytes % Neutrophils # (Manual) RBC Morphology Sodium Potassium Chloride Carbon Dioxide BUN Creatinine Estimated GFR BUN/Creatinine Ratio Glucose Lactate 5.9 H* Calcium Magnesium Total Bilirubin AST ALT Alkaline Phosphatase Troponin I NT-Pro-B Natriuret Pep Total Protein Albumin Globulin Albumin/Globulin Ratio Procalcitonin Urine Color Urine Appearance Urine pH Ur Specific [place] Urine Protein Urine Glucose (UA) Urine Ketones Urine Occult Blood Urine Nitrate Urine Bilirubin Urine Urobilinogen Ur Leukocyte Esterase Urine RBC Urine WBC Ur Squamous Epith Cells Ur Transition Epith Cell Urine Bacteria Ur Culture Indicated? Nasal Screen MRSA (PCR) Chlamy pneumoniae PCR Not detected Adenovirus (PCR) Not detected B. pertussis DNA (PCR) Not detected B.parapertussis DNA PCR Not detected Coronavirus OC43 (PCR) Not detected Coronavirus HKU1 (PCR) Not detected Coronavirus 229E (PCR) Not detected SARS-CoV-2 (PCR) Negative Not detected Coronavirus NL63 (PCR) Not detected Human Metapneumovir PCR Not detected Influenza A (RT-PCR) Flu a negative Influenza Type A (PCR) Not detected Influenza B (RT-PCR) Flu b negative Influenza Type B (PCR) Not detected M. pneumoniae (PCR) Not detected Parainfluenza 1 (PCR) Not detected Parainfluenza 2 (PCR) Not detected Parainfluenza 3 (PCR) Not detected Parainfluenza 4 (PCR) Not detected RSV (PCR) Negative Not detected Entero/Rhino (PCR) Not detected 02/06/22 02/06/22 02/06/22 20:45 21:40 22:28 WBC RBC Hgb Hct MCV MCH MCHC RDW Plt Count Neut % (Auto) Lymph % (Auto) [place] % (Auto) Eos % (Auto) Baso % (Auto) Lymph # (Auto) [place] # (Auto) Baso # (Auto) Total Counted Seg Neutrophils % Band Neutrophils % Lymphocytes % (Manual) Monocytes % (Manual) Eosinophils % (Manual) Metamyelocytes % Neutrophils # (Manual) RBC Morphology Sodium Potassium Chloride Carbon Dioxide BUN Creatinine Estimated GFR BUN/Creatinine Ratio Glucose Lactate 0.9 Calcium Magnesium Total Bilirubin AST ALT Alkaline Phosphatase Troponin I NT-Pro-B Natriuret Pep Total Protein Albumin Globulin Albumin/Globulin Ratio Procalcitonin Urine Color Yellow Urine Appearance Clear Urine pH 5.0 Ur Specific [place] 1.020 Urine Protein 1+ H Urine Glucose (UA) Trace H Urine Ketones Negative Urine Occult Blood 3+ H Urine Nitrate Negative Urine Bilirubin Negative Urine Urobilinogen 0.2 Ur Leukocyte Esterase Negative Urine RBC 5-10/hpf H Urine WBC 1-5/hpf Ur Squamous Epith Cells None seen Ur Transition Epith Cell 1-5/hpf Urine Bacteria Few (2-10) H Ur Culture Indicated? Specimen cultured Nasal Screen MRSA (PCR) Negative for mrsa Chlamy pneumoniae PCR Adenovirus (PCR) B. pertussis DNA (PCR) B.parapertussis DNA PCR Coronavirus OC43 (PCR) Coronavirus HKU1 (PCR) Coronavirus 229E (PCR) SARS-CoV-2 (PCR) Coronavirus NL63 (PCR) Human Metapneumovir PCR Influenza A (RT-PCR) Influenza Type A (PCR) Influenza B (RT-PCR) Influenza Type B (PCR) M. pneumoniae (PCR) Parainfluenza 1 (PCR) Parainfluenza 2 (PCR) Parainfluenza 3 (PCR) Parainfluenza 4 (PCR) RSV (PCR) Entero/Rhino (PCR) Assessment & Plan Assessment and plan (1) Septic shock: Status: Acute Plan: -Continue NE and Zosyn pending culture data (2) Acute CHF: Qualifiers: Heart failure type: unspecified Qualified Code(s): I50.9 - Heart failure, unspecified Status: Acute Plan: -Consider diuresis after septic shock has resolved -Also consider 2-D echo (3) Moderate aortic stenosis by prior echocardiogram: Problem details: Echo June 2021 Status: Chronic Plan: -See problem #2 (4) Moderate COPD (chronic obstructive pulmonary disease): Problem details: Nocturnal Oxygen Status: Chronic Plan: -Continue chronic outpt meds (5) Morbid obesity with body mass index (BMI) of 40.0 to 44.9 in adult: Status: Chronic Plan: -Follow (6) Acute renal failure superimposed on chronic kidney disease: Status: Acute Plan: -Trend -May change enoxaparin to SUBQ heparin if this worsens Time Spent With Patient Critical Care time: I spent a total of 35 minutes of critical care time on this patient's care today; this time is exclusive of procedural time.
[2022-02-07] MEDS: PIPERACILLIN/TAZO 3.375 GM in SODIUM CHLORIDE 0.9% 100 ML IV ×4 (02:39→23:51)
[2022-02-07 05:15] LABS: Add Manual Diff / Slide Review NO; Basophils Absolute Auto 0 /uL (0-100); Basophils Percent Auto 0.2 % (0-2); Eosinophils Absolute Auto 0 /uL (0-450); Eosinophils Percent Auto 0.2 % (2-4); Hematocrit 33.1 % (41-53); Hemoglobin 10.7 g/dL (13.5-17.5); Lymphocytes Absolute Auto 1400 /uL (1100-4500); Mean Corpuscular HGB Conc 32.2 % (30-36); Mean Corpuscular Hemoglobin 29.2 PG (26-34); Mean Corpuscular Volume 90.9 fL (80-100); Monocytes Absolute Auto 1200 /uL (0-900); Monocytes Percent Auto 6.5 % (3-14); Neutrophils Absolute Auto 15400 /uL (1500-7000); Neutrophils Percent Auto 85.1 % (50-75); Platelet Count 221 X10^3/uL (150-400); Red Blood Cell Count 3.65 X10^6/uL (4.5-5.9); Red Cell Distribution Width 14.7 % (11.6-14.8); White Blood Cell Count 18.1 X10^3/uL (4.5-11.0)
[2022-02-07 05:19] LABS: BUN Creatinine Ratio 26.2 (6-22); Blood Urea Nitrogen 61 mg/dL (9-20); Calcium 8.5 mg/dL (8.4-10.2); Carbon Dioxide 28 mmol/L (22-32); Chloride 101 mmol/L (98-107); Estimated Glomerular Filt Rate 27 mL/min (>60); Glucose 101 mg/dL (80-110); HEMOLYSIS 40 (0-50); Potassium 4.7 mmol/L (3.4-5.1); Sodium 137 mmol/L (137-145)
[2022-02-07 05:27] LABS: NT-proBNP (BNP-Adult 18+) 5570 pg/mL (<450)
[2022-02-07] MEDS: PANTOPRAZOLE DR 40 MG TABLET PO (08:00)
[2022-02-07] MEDS: ASPIRIN 81 MG CHEW TAB PO (08:09)
[2022-02-07] MEDS: ENOXAPARIN 40 MG/0.4 ML SYRINGE SUBCUT (08:09)
--- NOTE | 2022-02-07 08:10 | P.TELICUPN_ITS ---
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 male w/ PMHx of HFpEF (EF 60%), COPD on 2L home O2, lung CA, CKD3? and HTN admitted 02/06/22 for JAYCEE and septic shock. Potential sources include PNA and or UTI. Pt. started on Levophed drip for BP support. Pt. also started on Zosyn. Lactate normalized. Recent events: -patient has been off Levophed drip since 10 pm last night Current Medications Current Medications Medications: Home Medications aspirin 81 mg chewable tablet 81 mg PO DAILY 12/17/17 [History Confirmed 01/27/22] Disabled Parking Permit 1 ea DAILY 06/12/21 [History Confirmed 02/06/22] albuterol sulfate 90 mcg/actuation aerosol inhaler (Ventolin HFA) 2 puff inhalation Q4H PRN Shortness Of Breath #8.5 grams 06/20/21 [Rx Confirmed 01/27/22] fluticasone 250 mcg-salmeterol 50 mcg/dose blistr powdr for inhalation (Vasuxela Inhub) See Rx Instructions .Route .COMPLEX #60 ea 06/20/21 [Rx Confirmed 01/27/22] inhalational spacing device (BreatheRite MDI Spacer) #1 ea 06/20/21 [Rx Confirmed 02/06/22] lisinopril 40 mg tablet See Rx Instructions .Route .COMPLEX #180 tabs 12/10/21 [Rx Confirmed 01/27/22] metoprolol tartrate 100 mg tablet See Rx Instructions .Route .COMPLEX #180 tabs 12/10/21 [Rx Confirmed 01/27/22] atorvastatin 20 mg tablet See Rx Instructions .Route .COMPLEX #90 tabs 12/30/21 [Rx Confirmed 01/27/22] ketorolac 10 mg tablet 10 mg PO Q6H PRN pain #14 tabs 01/08/22 [Rx Confirmed 01/27/22] gabapentin 300 mg capsule 300 mg PO BEDTIME #30 caps 01/27/22 [Rx Confirmed 01/27/22] lidocaine 5 % topical patch (Lidoderm) 1 patch topical DAILY #15 ea 01/27/22 [Rx Confirmed 01/27/22] cyclobenzaprine 10 mg tablet 10 mg PO TID PRN muscle spasm #30 tabs 01/29/22 [Rx] Visit Medications (administered) Generic Name Dose Route Start Last Admin Trade Name Cherise PRN Reason Stop Dose Admin Aspirin 81 mg 02/07/22 09:00 02/07/22 08:09 Aspirin 81 Mg Chew Tab PO 81 mg DAILY MARTIN Administration Enoxaparin Sodium 40 mg 02/07/22 09:00 02/07/22 08:09 Enoxaparin 40 Mg/0.4 Ml Syringe SUBCUT 40 mg DAILY MARTIN Administration NOREPINEPHRINE BITARTRATE/D5W 4 mg in 250 mls @ 30 mls/hr 02/06/22 20:15 02/07/22 02:30 Levophed IV 0 mcg/min TITRATE MARTIN 0 mls/hr Titration Protocol 8 MCG/MIN Piperacillin Sod/Tazobactam 100 mls @ 25 mls/hr 02/07/22 03:00 02/07/22 08:04 Sod 3.375 gm/ Sodium Chloride IV 25 mls/hr Q6H MARTIN Administration Pantoprazole Sodium 40 mg 02/07/22 07:00 02/07/22 08:[address] 40 Mg Tablet PO 40 mg 0700 MARTIN Administration Objective Labs Result Diagrams: 02/07/22 04:30 02/07/22 04:30 Labs: Laboratory Results - last 24 hr 02/06/22 02/06/22 02/06/22 19:20 19:20 19:20 WBC 24.4 H RBC 3.90 L Hgb 11.6 L Hct 35.7 L MCV 91.6 MCH 29.7 MCHC 32.4 RDW 14.8 Plt Count 227 Neut % (Auto) Not Reportable Lymph % (Auto) Not Reportable [place] % (Auto) Not Reportable Eos % (Auto) Not Reportable Baso % (Auto) Not Reportable Neut # (Auto) Lymph # (Auto) Not Reportable [place] # (Auto) Not Reportable Eos # (Auto) Baso # (Auto) Not Reportable Total Counted 100 Seg Neutrophils % 80.0 H Band Neutrophils % 7.0 Lymphocytes % (Manual) 3.0 L Monocytes % (Manual) 8.0 Eosinophils % (Manual) 1.0 L Metamyelocytes % 1.0 H Neutrophils # (Manual) 81866 H RBC Morphology Normal morphology Sodium 136 L Potassium 5.2 H Chloride 102 Carbon Dioxide 18 L BUN 59 H Creatinine 2.54 H Estimated GFR 24 L BUN/Creatinine Ratio 23.2 H Glucose 118 H Lactate Calcium 9.1 Magnesium 1.4 L Total Bilirubin 0.5 AST 113 H ALT 34 Alkaline Phosphatase 64 Troponin I 0.025 NT-Pro-B Natriuret Pep 4650 H Total Protein 7.2 Albumin 3.9 Globulin 3.3 Albumin/Globulin Ratio 1.2 Procalcitonin 9.74 H Urine Color Urine Appearance Urine pH Ur Specific [place] Urine Protein Urine Glucose (UA) Urine Ketones Urine Occult Blood Urine Nitrate Urine Bilirubin Urine Urobilinogen Ur Leukocyte Esterase Urine RBC Urine WBC Ur Squamous Epith Cells Ur Transition Epith Cell Urine Bacteria Ur Culture Indicated? Nasal Screen MRSA (PCR) Chlamy pneumoniae PCR Adenovirus (PCR) B. pertussis DNA (PCR) B.parapertussis DNA PCR Coronavirus OC43 (PCR) Coronavirus HKU1 (PCR) Coronavirus 229E (PCR) SARS-CoV-2 (PCR) Coronavirus NL63 (PCR) Human Metapneumovir PCR Influenza A (RT-PCR) Influenza Type A (PCR) Influenza B (RT-PCR) Influenza Type B (PCR) M. pneumoniae (PCR) Parainfluenza 1 (PCR) Parainfluenza 2 (PCR) Parainfluenza 3 (PCR) Parainfluenza 4 (PCR) RSV (PCR) Entero/Rhino (PCR) 02/06/22 02/06/22 02/06/22 19:20 19:25 19:25 WBC RBC Hgb Hct MCV MCH MCHC RDW Plt Count Neut % (Auto) Lymph % (Auto) [place] % (Auto) Eos % (Auto) Baso % (Auto) Neut # (Auto) Lymph # (Auto) [place] # (Auto) Eos # (Auto) Baso # (Auto) Total Counted Seg Neutrophils % Band Neutrophils % Lymphocytes % (Manual) Monocytes % (Manual) Eosinophils % (Manual) Metamyelocytes % Neutrophils # (Manual) RBC Morphology Sodium Potassium Chloride Carbon Dioxide BUN Creatinine Estimated GFR BUN/Creatinine Ratio Glucose Lactate 5.9 H* Calcium Magnesium Total Bilirubin AST ALT Alkaline Phosphatase Troponin I NT-Pro-B Natriuret Pep Total Protein Albumin Globulin Albumin/Globulin Ratio Procalcitonin Urine Color Urine Appearance Urine pH Ur Specific [place] Urine Protein Urine Glucose (UA) Urine Ketones Urine Occult Blood Urine Nitrate Urine Bilirubin Urine Urobilinogen Ur Leukocyte Esterase Urine RBC Urine WBC Ur Squamous Epith Cells Ur Transition Epith Cell Urine Bacteria Ur Culture Indicated? Nasal Screen MRSA (PCR) Chlamy pneumoniae PCR Not detected Adenovirus (PCR) Not detected B. pertussis DNA (PCR) Not detected B.parapertussis DNA PCR Not detected Coronavirus OC43 (PCR) Not detected Coronavirus HKU1 (PCR) Not detected Coronavirus 229E (PCR) Not detected SARS-CoV-2 (PCR) Negative Not detected Coronavirus NL63 (PCR) Not detected Human Metapneumovir PCR Not detected Influenza A (RT-PCR) Flu a negative Influenza Type A (PCR) Not detected Influenza B (RT-PCR) Flu b negative Influenza Type B (PCR) Not detected M. pneumoniae (PCR) Not detected Parainfluenza 1 (PCR) Not detected Parainfluenza 2 (PCR) Not detected Parainfluenza 3 (PCR) Not detected Parainfluenza 4 (PCR) Not detected RSV (PCR) Negative Not detected Entero/Rhino (PCR) Not detected 02/06/22 02/06/22 02/06/22 20:45 21:40 22:28 WBC RBC Hgb Hct MCV MCH MCHC RDW Plt Count Neut % (Auto) Lymph % (Auto) [place] % (Auto) Eos % (Auto) Baso % (Auto) Neut # (Auto) Lymph # (Auto) [place] # (Auto) Eos # (Auto) Baso # (Auto) Total Counted Seg Neutrophils % Band Neutrophils % Lymphocytes % (Manual) Monocytes % (Manual) Eosinophils % (Manual) Metamyelocytes % Neutrophils # (Manual) RBC Morphology Sodium Potassium Chloride Carbon Dioxide BUN Creatinine Estimated GFR BUN/Creatinine Ratio Glucose Lactate 0.9 Calcium Magnesium Total Bilirubin AST ALT Alkaline Phosphatase Troponin I NT-Pro-B Natriuret Pep Total Protein Albumin Globulin Albumin/Globulin Ratio Procalcitonin Urine Color Yellow Urine Appearance Clear Urine pH 5.0 Ur Specific [place] 1.020 Urine Protein 1+ H Urine Glucose (UA) Trace H Urine Ketones Negative Urine Occult Blood 3+ H Urine Nitrate Negative Urine Bilirubin Negative Urine Urobilinogen 0.2 Ur Leukocyte Esterase Negative Urine RBC 5-10/hpf H Urine WBC 1-5/hpf Ur Squamous Epith Cells None seen Ur Transition Epith Cell 1-5/hpf Urine Bacteria Few (2-10) H Ur Culture Indicated? Specimen cultured Nasal Screen MRSA (PCR) Negative for mrsa Chlamy pneumoniae PCR Adenovirus (PCR) B. pertussis DNA (PCR) B.parapertussis DNA PCR Coronavirus OC43 (PCR) Coronavirus HKU1 (PCR) Coronavirus 229E (PCR) SARS-CoV-2 (PCR) Coronavirus NL63 (PCR) Human Metapneumovir PCR Influenza A (RT-PCR) Influenza Type A (PCR) Influenza B (RT-PCR) Influenza Type B (PCR) M. pneumoniae (PCR) Parainfluenza 1 (PCR) Parainfluenza 2 (PCR) Parainfluenza 3 (PCR) Parainfluenza 4 (PCR) RSV (PCR) Entero/Rhino (PCR) 02/07/22 02/07/22 04:30 04:30 WBC 18.1 H RBC 3.65 L Hgb 10.7 L Hct 33.1 L MCV 90.9 MCH 29.2 MCHC 32.2 RDW 14.7 Plt Count 221 Neut % (Auto) 85.1 H Lymph % (Auto) 8.0 L [place] % (Auto) 6.5 Eos % (Auto) 0.2 L Baso % (Auto) 0.2 Neut # (Auto) 52979 H Lymph # (Auto) 1400 [place] # (Auto) 1200 H Eos # (Auto) 0 Baso # (Auto) 0 Total Counted Seg Neutrophils % Band Neutrophils % Lymphocytes % (Manual) Monocytes % (Manual) Eosinophils % (Manual) Metamyelocytes % Neutrophils # (Manual) RBC Morphology Sodium 137 Potassium 4.7 Chloride 101 Carbon Dioxide 28 BUN 61 H Creatinine 2.33 H Estimated GFR 27 L BUN/Creatinine Ratio 26.2 H Glucose 101 Lactate Calcium 8.5 Magnesium Total Bilirubin AST ALT Alkaline Phosphatase Troponin I NT-Pro-B Natriuret Pep 5570 H Total Protein Albumin Globulin Albumin/Globulin Ratio Procalcitonin Urine Color Urine Appearance Urine pH Ur Specific [place] Urine Protein Urine Glucose (UA) Urine Ketones Urine Occult Blood Urine Nitrate Urine Bilirubin Urine Urobilinogen Ur Leukocyte Esterase Urine RBC Urine WBC Ur Squamous Epith Cells Ur Transition Epith Cell Urine Bacteria Ur Culture Indicated? Nasal Screen MRSA (PCR) Chlamy pneumoniae PCR Adenovirus (PCR) B. pertussis DNA (PCR) B.parapertussis DNA PCR Coronavirus OC43 (PCR) Coronavirus HKU1 (PCR) Coronavirus 229E (PCR) SARS-CoV-2 (PCR) Coronavirus NL63 (PCR) Human Metapneumovir PCR Influenza A (RT-PCR) Influenza Type A (PCR) Influenza B (RT-PCR) Influenza Type B (PCR) M. pneumoniae (PCR) Parainfluenza 1 (PCR) Parainfluenza 2 (PCR) Parainfluenza 3 (PCR) Parainfluenza 4 (PCR) RSV (PCR) Entero/Rhino (PCR) Exam Vital Signs (past 8 hours): - 02/07/22 00:16 02/07/22 00:16 02/07/22 00:30 Temperature 99.0 F 99.0 F Pulse Rate 62 62 Respiratory Rate 21 20 Blood Pressure 98/49 L Pulse Oximetry 95 95 Oxygen Flow Rate 02/07/22 00:30 02/07/22 00:45 02/07/22 00:45 Temperature 99.0 F Pulse Rate 60 Respiratory Rate 19 Blood Pressure 112/54 L 108/53 L Pulse Oximetry 95 Oxygen Flow Rate 1 02/07/22 01:00 02/07/22 01:00 02/07/22 01:16 Temperature 98.8 F Pulse Rate 60 Respiratory Rate 25 H Blood Pressure 118/61 91/48 L Pulse Oximetry 95 Oxygen Flow Rate 1 02/07/22 01:16 02/07/22 01:30 02/07/22 01:30 Temperature 98.8 F 98.8 F Pulse Rate 61 60 Respiratory Rate 21 22 Blood Pressure 89/50 L Pulse Oximetry 91 89 L Oxygen Flow Rate 02/07/22 01:34 02/07/22 01:34 02/07/22 01:45 Temperature 98.6 F 98.8 F Pulse Rate 60 60 Respiratory Rate 21 20 Blood Pressure 118/57 L Pulse Oximetry 91 94 Oxygen Flow Rate 02/07/22 01:45 02/07/22 02:00 02/07/22 02:00 Temperature 98.6 F Pulse Rate 59 L Respiratory Rate 19 Blood Pressure 110/60 111/62 Pulse Oximetry 92 Oxygen Flow Rate 1 02/07/22 02:15 02/07/22 02:15 02/07/22 02:30 Temperature 98.6 F 98.6 F Pulse Rate 59 L 59 L Respiratory Rate 21 21 Blood Pressure 115/56 L Pulse Oximetry 94 95 Oxygen Flow Rate 1 02/07/22 02:30 02/07/22 02:46 02/07/22 02:46 Temperature 98.6 F Pulse Rate 59 L Respiratory Rate 21 Blood Pressure 98/47 L 87/50 L Pulse Oximetry 94 Oxygen Flow Rate 02/07/22 02:55 02/07/22 02:55 02/07/22 03:00 Temperature 98.6 F 98.6 F Pulse Rate 60 59 L Respiratory Rate 19 18 Blood Pressure 88/52 L Pulse Oximetry 95 95 Oxygen Flow Rate 1 02/07/22 03:00 02/07/22 03:30 02/07/22 03:30 Temperature 98.6 F Pulse Rate 60 Respiratory Rate 19 Blood Pressure 86/54 L 92/52 L Pulse Oximetry 95 Oxygen Flow Rate 02/07/22 04:00 02/07/22 04:03 02/07/22 04:03 Temperature 98.6 F 98.6 F Pulse Rate 60 61 Respiratory Rate 33 H 22 Blood Pressure 110/54 L Pulse Oximetry 94 94 Oxygen Flow Rate 02/07/22 04:37 02/07/22 04:37 02/07/22 04:39 Temperature 98.8 F 98.8 F Pulse Rate 63 63 Respiratory Rate 22 23 Blood Pressure 85/51 L Pulse Oximetry 93 94 Oxygen Flow Rate 02/07/22 04:39 02/07/22 05:00 02/07/22 05:43 Temperature 98.8 F 99.0 F Pulse Rate 65 70 Respiratory Rate 19 22 Blood Pressure 89/54 L Pulse Oximetry 96 92 Oxygen Flow Rate 1 02/07/22 05:43 02/07/22 06:00 Temperature 99.1 F Pulse Rate 67 Respiratory Rate 25 H Blood Pressure 98/56 L Pulse Oximetry 91 Oxygen Flow Rate Oxygen Delivery Method Nasal Cannula Oxygen Flow Rate 1 Narrative Exam Narrative: Patient seen over two way audio visual system. He is sitting up in bed, alert, conversant with polysomnography tech, breathing comfortably on n/c. Quality TeleICU VTE Deep Vein Thrombosis/Pulmonary Embolism Present on Admission: No Assessment & Plan Assessment & Plan narrative: Assessment: Septic Shock PNA ? UTI JAYCEE-Cr improving COPD Obesity Plan -continue Zosyn -add Doxycycline to cover for atypical PNA and community MRSA -f/u on cultures -resume home Fluticasone/Salmeterol inhaler -hold home PO BP meds -LR 75 cc/hr for 12 hours given JAYCEE PPx: Lovenox Dispo: If patient remains hemodynamically stable off Levophed drip, can consider transferring him out of ICU. CCT spent 38 min Time Spent With Patient Critical Care time: I spent a total of [] minutes of critical care time on this patient's care today; this time is exclusive of procedural time.
--- NOTE | 2022-02-07 08:18 | PM.HP.1 ---
History of Present Illness History of Present Illness Date Patient Seen: 02/07/22 Time Patient Seen: 07:45 Chief complaint: SOB Narrative: 86-year-old male with a history of lung cancer congestive heart failure COPD chronic kidney disease coronary artery disease hypertension hyperlipidemia and morbid obesity presents to the emergency department with significant weakness and shortness of breath. Patient states for the last 2-3 weeks he is began to have increasing weakness. Always has a cough and he felt like his cough was more productive. He was spending more time in the chair. Did not have fevers or chills. Last night he fell out of bed and could not get up. And 911 was called. He states he has been eating well. He has a history of heart disease and heart failure and chronic lung disease. He says he is lost his appetite a little bit. Has not had chest pain or palpitations. His main concern is just increased work of breathing. He is had no changes in his bowel movement or urination. Has inhalers and oxygen at home. He says he uses his oxygen at home and his inhalers sometimes. Says he has been few days since he is taking his regular medication. He has a partner at home with him who he lives with. He does still drive. On my exam in the ICU he is a good historian. Remembers our visits a few weeks ago. We discussed his code status. He would like to be a full code but he does not want to be on long-term mechanical ventilation mechanical ventilation. Says right now he feels very weak. He is a little bit short of breath but he does feel like he is a little bit better. He also asked me if he thinks this is his time to . Patient History Medical History Acute respiratory failure with hypoxia Chronic back pain (~1959) COPD (chronic obstructive pulmonary disease) Gout (~2011) History of urinary incontinence Lung cancer (~2007) Moderate aortic stenosis by prior echocardiogram Pancreatitis (~2005) Vision disorder Surgical History Anesthesia History of lung surgery (~03/2007) Family & Social History Family History Father Heart disease Grandmother Age: 82 Ovarian cancer, unspecified laterality Mother Diabetes mellitus Sister No problems noted. Social History: household members significant other Prior Living Arrangements House Safety & Behavioral: Feels Safe in Current Yes Environment Been Physically Hurt or No Threatened By a Person Tobacco & Substance use: Tobacco type cigarettes Smoking Status Current every day smoker alcohol intake current alcohol intake frequency 3 or more drinks per day Substance Use Type does not use Meds Home Medications and Allergies Home Medications Medication Instructions Recorded Confirmed Type aspirin 81 mg chewable tablet 81 mg PO DAILY 12/17/17 01/27/22 History Disabled Parking Permit 1 ea DAILY 06/12/21 02/06/22 History albuterol sulfate 90 mcg/actuation 2 puff inhalation Q4H PRN 06/20/21 01/27/22 Rx aerosol inhaler (Ventolin HFA) Shortness Of Breath #8.5 grams fluticasone 250 mcg-salmeterol 50 See Rx Instructions .Route 06/20/21 01/27/22 Rx mcg/dose blistr powdr for .COMPLEX #60 ea inhalation (Wixela Inhub) inhalational spacing device #1 ea 06/20/21 02/06/22 Rx (BreatheRite MDI Spacer) lisinopril 40 mg tablet See Rx Instructions .Route 12/10/21 01/27/22 Rx .COMPLEX #180 tabs metoprolol tartrate 100 mg tablet See Rx Instructions .Route 12/10/21 01/27/22 Rx .COMPLEX #180 tabs atorvastatin 20 mg tablet See Rx Instructions .Route 12/30/21 01/27/22 Rx .COMPLEX #90 tabs ketorolac 10 mg tablet 10 mg PO Q6H PRN pain #14 tabs 01/08/22 01/27/22 Rx gabapentin 300 mg capsule 300 mg PO BEDTIME #30 caps 01/27/22 01/27/22 Rx lidocaine 5 % topical patch 1 patch topical DAILY #15 ea 01/27/22 01/27/22 Rx (Lidoderm) cyclobenzaprine 10 mg tablet 10 mg PO TID PRN muscle spasm #30 01/29/22 Rx tabs Allergies Allergy/AdvReac Type Severity Reaction Status Date / Time No Known Drug Allergies Allergy Verified 01/27/22 09:34 Exam Vital Signs (past 8 hours): - 02/07/22 00:30 02/07/22 00:30 02/07/22 00:45 Temperature 99.0 F 99.0 F Pulse Rate 62 60 Respiratory Rate 20 19 Blood Pressure 112/54 L Pulse Oximetry 95 95 Oxygen Flow Rate 1 02/07/22 00:45 02/07/22 01:00 02/07/22 01:00 Temperature 98.8 F Pulse Rate 60 Respiratory Rate 25 H Blood Pressure 108/53 L 118/61 Pulse Oximetry 95 Oxygen Flow Rate 1 02/07/22 01:16 02/07/22 01:16 02/07/22 01:30 Temperature 98.8 F 98.8 F Pulse Rate 61 60 Respiratory Rate 21 22 Blood Pressure 91/48 L Pulse Oximetry 91 89 L Oxygen Flow Rate 02/07/22 01:30 02/07/22 01:34 02/07/22 01:34 Temperature 98.6 F Pulse Rate 60 Respiratory Rate 21 Blood Pressure 89/50 L 118/57 L Pulse Oximetry 91 Oxygen Flow Rate 02/07/22 01:45 02/07/22 01:45 02/07/22 02:00 Temperature 98.8 F Pulse Rate 60 Respiratory Rate 20 Blood Pressure 110/60 111/62 Pulse Oximetry 94 Oxygen Flow Rate 02/07/22 02:00 02/07/22 02:15 02/07/22 02:15 Temperature 98.6 F 98.6 F Pulse Rate 59 L 59 L Respiratory Rate 19 21 Blood Pressure 115/56 L Pulse Oximetry 92 94 Oxygen Flow Rate 1 1 02/07/22 02:30 02/07/22 02:30 02/07/22 02:46 Temperature 98.6 F 98.6 F Pulse Rate 59 L 59 L Respiratory Rate 21 21 Blood Pressure 98/47 L Pulse Oximetry 95 94 Oxygen Flow Rate 02/07/22 02:46 02/07/22 02:55 02/07/22 02:55 Temperature 98.6 F Pulse Rate 60 Respiratory Rate 19 Blood Pressure 87/50 L 88/52 L Pulse Oximetry 95 Oxygen Flow Rate 02/07/22 03:00 02/07/22 03:00 02/07/22 03:30 Temperature 98.6 F 98.6 F Pulse Rate 59 L 60 Respiratory Rate 18 19 Blood Pressure 86/54 L Pulse Oximetry 95 95 Oxygen Flow Rate 1 02/07/22 03:30 02/07/22 04:00 02/07/22 04:03 Temperature 98.6 F 98.6 F Pulse Rate 60 61 Respiratory Rate 33 H 22 Blood Pressure 92/52 L Pulse Oximetry 94 94 Oxygen Flow Rate 02/07/22 04:03 02/07/22 04:37 02/07/22 04:37 Temperature 98.8 F Pulse Rate 63 Respiratory Rate 22 Blood Pressure 110/54 L 85/51 L Pulse Oximetry 93 Oxygen Flow Rate 02/07/22 04:39 02/07/22 04:39 02/07/22 05:00 Temperature 98.8 F 98.8 F Pulse Rate 63 65 Respiratory Rate 23 19 Blood Pressure 89/54 L Pulse Oximetry 94 96 Oxygen Flow Rate 1 02/07/22 05:43 02/07/22 05:43 02/07/22 06:00 Temperature 99.0 F 99.1 F Pulse Rate 70 67 Respiratory Rate 22 25 H Blood Pressure 98/56 L Pulse Oximetry 92 91 Oxygen Flow Rate Oxygen Delivery Method Nasal Cannula Oxygen Flow Rate 1 Narrative Exam Narrative: Gen.: Alert elderly appearing obese male gentleman sitting in bed with mild increased work of breathing HEENT: Pupils equal round and reactive oral mucosa is moist neck is supple Cardio: S1-S2 slight to moderate systolic heart murmur. Respiratory: Patient has mild increased work of breathing. Crackles and wheezes in both lung morrow. Lung sounds are somewhat distant. Abdomen: Obese soft no significant tenderness or guarding Extremities: Lower extremities warm dry perfused mild edema Objective Labs Result Diagrams: 02/07/22 04:30 02/07/22 04:30 Labs: Laboratory Results - last 24 hr 02/06/22 02/06/22 02/06/22 19:20 19:20 19:20 WBC 24.4 H RBC 3.90 L Hgb 11.6 L Hct 35.7 L MCV 91.6 MCH 29.7 MCHC 32.4 RDW 14.8 Plt Count 227 Neut % (Auto) Not Reportable Lymph % (Auto) Not Reportable [place] % (Auto) Not Reportable Eos % (Auto) Not Reportable Baso % (Auto) Not Reportable Neut # (Auto) Lymph # (Auto) Not Reportable [place] # (Auto) Not Reportable Eos # (Auto) Baso # (Auto) Not Reportable Total Counted 100 Seg Neutrophils % 80.0 H Band Neutrophils % 7.0 Lymphocytes % (Manual) 3.0 L Monocytes % (Manual) 8.0 Eosinophils % (Manual) 1.0 L Metamyelocytes % 1.0 H Neutrophils # (Manual) 64293 H RBC Morphology Normal morphology Sodium 136 L Potassium 5.2 H Chloride 102 Carbon Dioxide 18 L BUN 59 H Creatinine 2.54 H Estimated GFR 24 L BUN/Creatinine Ratio 23.2 H Glucose 118 H Lactate Calcium 9.1 Magnesium 1.4 L Total Bilirubin 0.5 AST 113 H ALT 34 Alkaline Phosphatase 64 Troponin I 0.025 NT-Pro-B Natriuret Pep 4650 H Total Protein 7.2 Albumin 3.9 Globulin 3.3 Albumin/Globulin Ratio 1.2 Procalcitonin 9.74 H Urine Color Urine Appearance Urine pH Ur Specific [place] Urine Protein Urine Glucose (UA) Urine Ketones Urine Occult Blood Urine Nitrate Urine Bilirubin Urine Urobilinogen Ur Leukocyte Esterase Urine RBC Urine WBC Ur Squamous Epith Cells Ur Transition Epith Cell Urine Bacteria Ur Culture Indicated? Nasal Screen MRSA (PCR) Chlamy pneumoniae PCR Adenovirus (PCR) B. pertussis DNA (PCR) B.parapertussis DNA PCR Coronavirus OC43 (PCR) Coronavirus HKU1 (PCR) Coronavirus 229E (PCR) SARS-CoV-2 (PCR) Coronavirus NL63 (PCR) Human Metapneumovir PCR Influenza A (RT-PCR) Influenza Type A (PCR) Influenza B (RT-PCR) Influenza Type B (PCR) M. pneumoniae (PCR) Parainfluenza 1 (PCR) Parainfluenza 2 (PCR) Parainfluenza 3 (PCR) Parainfluenza 4 (PCR) RSV (PCR) Entero/Rhino (PCR) 02/06/22 02/06/22 02/06/22 19:20 19:25 19:25 WBC RBC Hgb Hct MCV MCH MCHC RDW Plt Count Neut % (Auto) Lymph % (Auto) [place] % (Auto) Eos % (Auto) Baso % (Auto) Neut # (Auto) Lymph # (Auto) [place] # (Auto) Eos # (Auto) Baso # (Auto) Total Counted Seg Neutrophils % Band Neutrophils % Lymphocytes % (Manual) Monocytes % (Manual) Eosinophils % (Manual) Metamyelocytes % Neutrophils # (Manual) RBC Morphology Sodium Potassium Chloride Carbon Dioxide BUN Creatinine Estimated GFR BUN/Creatinine Ratio Glucose Lactate 5.9 H* Calcium Magnesium Total Bilirubin AST ALT Alkaline Phosphatase Troponin I NT-Pro-B Natriuret Pep Total Protein Albumin Globulin Albumin/Globulin Ratio Procalcitonin Urine Color Urine Appearance Urine pH Ur Specific [place] Urine Protein Urine Glucose (UA) Urine Ketones Urine Occult Blood Urine Nitrate Urine Bilirubin Urine Urobilinogen Ur Leukocyte Esterase Urine RBC Urine WBC Ur Squamous Epith Cells Ur Transition Epith Cell Urine Bacteria Ur Culture Indicated? Nasal Screen MRSA (PCR) Chlamy pneumoniae PCR Not detected Adenovirus (PCR) Not detected B. pertussis DNA (PCR) Not detected B.parapertussis DNA PCR Not detected Coronavirus OC43 (PCR) Not detected Coronavirus HKU1 (PCR) Not detected Coronavirus 229E (PCR) Not detected SARS-CoV-2 (PCR) Negative Not detected Coronavirus NL63 (PCR) Not detected Human Metapneumovir PCR Not detected Influenza A (RT-PCR) Flu a negative Influenza Type A (PCR) Not detected Influenza B (RT-PCR) Flu b negative Influenza Type B (PCR) Not detected M. pneumoniae (PCR) Not detected Parainfluenza 1 (PCR) Not detected Parainfluenza 2 (PCR) Not detected Parainfluenza 3 (PCR) Not detected Parainfluenza 4 (PCR) Not detected RSV (PCR) Negative Not detected Entero/Rhino (PCR) Not detected 02/06/22 02/06/22 02/06/22 20:45 21:40 22:28 WBC RBC Hgb Hct MCV MCH MCHC RDW Plt Count Neut % (Auto) Lymph % (Auto) [place] % (Auto) Eos % (Auto) Baso % (Auto) Neut # (Auto) Lymph # (Auto) [place] # (Auto) Eos # (Auto) Baso # (Auto) Total Counted Seg Neutrophils % Band Neutrophils % Lymphocytes % (Manual) Monocytes % (Manual) Eosinophils % (Manual) Metamyelocytes % Neutrophils # (Manual) RBC Morphology Sodium Potassium Chloride Carbon Dioxide BUN Creatinine Estimated GFR BUN/Creatinine Ratio Glucose Lactate 0.9 Calcium Magnesium Total Bilirubin AST ALT Alkaline Phosphatase Troponin I NT-Pro-B Natriuret Pep Total Protein Albumin Globulin Albumin/Globulin Ratio Procalcitonin Urine Color Yellow Urine Appearance Clear Urine pH 5.0 Ur Specific [place] 1.020 Urine Protein 1+ H Urine Glucose (UA) Trace H Urine Ketones Negative Urine Occult Blood 3+ H Urine Nitrate Negative Urine Bilirubin Negative Urine Urobilinogen 0.2 Ur Leukocyte Esterase Negative Urine RBC 5-10/hpf H Urine WBC 1-5/hpf Ur Squamous Epith Cells None seen Ur Transition Epith Cell 1-5/hpf Urine Bacteria Few (2-10) H Ur Culture Indicated? Specimen cultured Nasal Screen MRSA (PCR) Negative for mrsa Chlamy pneumoniae PCR Adenovirus (PCR) B. pertussis DNA (PCR) B.parapertussis DNA PCR Coronavirus OC43 (PCR) Coronavirus HKU1 (PCR) Coronavirus 229E (PCR) SARS-CoV-2 (PCR) Coronavirus NL63 (PCR) Human Metapneumovir PCR Influenza A (RT-PCR) Influenza Type A (PCR) Influenza B (RT-PCR) Influenza Type B (PCR) M. pneumoniae (PCR) Parainfluenza 1 (PCR) Parainfluenza 2 (PCR) Parainfluenza 3 (PCR) Parainfluenza 4 (PCR) RSV (PCR) Entero/Rhino (PCR) 02/07/22 02/07/22 04:30 04:30 WBC 18.1 H RBC 3.65 L Hgb 10.7 L Hct 33.1 L MCV 90.9 MCH 29.2 MCHC 32.2 RDW 14.7 Plt Count 221 Neut % (Auto) 85.1 H Lymph % (Auto) 8.0 L [place] % (Auto) 6.5 Eos % (Auto) 0.2 L Baso % (Auto) 0.2 Neut # (Auto) 56643 H Lymph # (Auto) 1400 [place] # (Auto) 1200 H Eos # (Auto) 0 Baso # (Auto) 0 Total Counted Seg Neutrophils % Band Neutrophils % Lymphocytes % (Manual) Monocytes % (Manual) Eosinophils % (Manual) Metamyelocytes % Neutrophils # (Manual) RBC Morphology Sodium 137 Potassium 4.7 Chloride 101 Carbon Dioxide 28 BUN 61 H Creatinine 2.33 H Estimated GFR 27 L BUN/Creatinine Ratio 26.2 H Glucose 101 Lactate Calcium 8.5 Magnesium Total Bilirubin AST ALT Alkaline Phosphatase Troponin I NT-Pro-B Natriuret Pep 5570 H Total Protein Albumin Globulin Albumin/Globulin Ratio Procalcitonin Urine Color Urine Appearance Urine pH Ur Specific [place] Urine Protein Urine Glucose (UA) Urine Ketones Urine Occult Blood Urine Nitrate Urine Bilirubin Urine Urobilinogen Ur Leukocyte Esterase Urine RBC Urine WBC Ur Squamous Epith Cells Ur Transition Epith Cell Urine Bacteria Ur Culture Indicated? Nasal Screen MRSA (PCR) Chlamy pneumoniae PCR Adenovirus (PCR) B. pertussis DNA (PCR) B.parapertussis DNA PCR Coronavirus OC43 (PCR) Coronavirus HKU1 (PCR) Coronavirus 229E (PCR) SARS-CoV-2 (PCR) Coronavirus NL63 (PCR) Human Metapneumovir PCR Influenza A (RT-PCR) Influenza Type A (PCR) Influenza B (RT-PCR) Influenza Type B (PCR) M. pneumoniae (PCR) Parainfluenza 1 (PCR) Parainfluenza 2 (PCR) Parainfluenza 3 (PCR) Parainfluenza 4 (PCR) RSV (PCR) Entero/Rhino (PCR) Assessment & Plan Assessment and plan (1) Acute renal failure superimposed on chronic kidney disease: Qualifiers: Chronic kidney disease stage: stage 3 (moderate) Chronic kidney disease stage 3 subtype: stage 3b (GFR 30-44) Acute renal failure type: unspecified Qualified Code(s): N17.9 - Acute kidney failure, unspecified; N18.32 - Chronic kidney disease, stage 3b Status: Acute (2) Acute CHF: Qualifiers: Heart failure type: unspecified Qualified Code(s): I50.9 - Heart failure, unspecified Status: Acute (3) Pneumonia: Qualifiers: Laterality: left Lung location: lower lobe of lung Pneumonia type: due to unspecified organism Qualified Code(s): J18.9 - Pneumonia, unspecified organism Status: Acute (4) Acute alteration in mental status: Status: Acute (5) Septic shock: Status: Acute (6) COPD (chronic obstructive pulmonary disease): Qualifiers: COPD type: COPD with acute lower respiratory infection Qualified Code(s): J44.0 - Chronic obstructive pulmonary disease with (acute) lower respiratory infection Status: Acute (7) Moderate aortic stenosis by prior echocardiogram: Problem details: Echo June 2021 Status: Chronic (8) History of lung cancer: Status: Acute Plan Patient with septic shock requiring pressors patient had elevated white blood cell count lactic acid. Presumed source is either urinary source or more possibly probably pneumonia. Patient has not recently been hospitalized so it would be community acquired pneumonia. Patient on appropriate antibiotic coverage at this time with Zosyn. Patient required pressors with Levophed. His current blood pressures have improved. He is off pressure support. Blood pressures on hold. Will continue to monitor closely blood pressures and keep MA P at goal. Monitor closely fluid status as his history of heart failure significant COPD. Appreciate tele cable braider consultation. Patient does have a history of moderate COPD he is on oxygen. I would consider adding steroids to his current medical regimen as I think this has helped him previously as he is a long-term smoker. Acute congestive heart failure. Patient has a history of coronary artery disease and heart failure. Based on his lung exam and having a hard time determining if it is just COPD or heart failure or combination of both he does have an elevated BNP. At this point I do not think he will tolerate diuresis but I think he needs this as well. Based on his kidney function low blood pressure. We will work on treating his infection 1st and as he improves in his blood pressure improves we may try some gentle diuresis for this patient. He is normally on a beta-amilcar and an AMIRAH inhibitor these are on hold because of low blood pressure. We are repeating an echocardiogram. Acute on chronic renal failure. Patient has chronic renal disease. Due to his sepsis and hypotension his renal function has worsened from baseline. After IV fluids and pressure support his kidney function improved this morning. Will monitor closely his electrolytes kidney function and replace as needed. Moderate COPD with acute exacerbation. I think there is a component of exacerbation of his underlying COPD in the past he is responded well to steroids. I would like to start with IV steroids in addition to his other medications. Coronary artery disease chronic and stable. Negative troponin EKG stable at this point. Will hold off on his metoprolol. Continue to monitor his symptoms. Proceed with an echocardiogram Morbid obesity. This certainly complicates his care. BMI of 40. Think this also compromises his respiratory status. Hyperlipidemia patient will be restarted on a statin VTE prophylaxis with Lovenox Code status. Patient would like to be resuscitated but does not want long-term mechanical ventilation Time Spent With Patient Critical Care time: I spent a total of [] minutes of critical care time on this patient's care today; this time is exclusive of procedural time. Quality VTE Deep Vein Thrombosis/Pulmonary Embolism Present on Admission: No
[2022-02-07] MEDS: MAGNESIUM SULFATE 2 GM/50 ML PIGGYBACK IV (09:27)
[2022-02-07] MEDS: LACTATED RINGERS 1,000 ML 75 ML IV (09:28)
[2022-02-07] MEDS: DOXYCYCLINE 100 MG in SODIUM CHLORIDE 0.9% 100 ML IV ×2 (09:31→20:29)
[2022-02-07] MEDS: ALBUTEROL/IPRATROPIUM 3 ML AMPUL INH ×3 (10:13→20:03)
--- NOTE | 2022-02-07 11:01 | CM.DANOTE ---
Initial DCP Assessment Note Patient is 86 y/o male who presents to via EMS due to concern for increased weakness, SOB and recent GLF, patient was admitted for UTI, JAYCEE and Septic Shock. Patient has hx of lung cancer, CHF, COPD, CKD, CAD, hypertension, and hyperlipidemia. Patient's PCP is Dr. Jennings, patient has Medicare and [employer] preferred insurance. DRY PAN OPERATOR enters room to meet with patient. Patient presents as A/Ox4. Patient endorses he resides in [place] with caregiver who takes care of cooking, cleaning and any needs that arise. Patient endorses he is independent with ADLs at baseline and uses a FWW. Patient has O2 and inhaler at home per EMR. Patient endorses that he drives. Patient denies DCP needs upon d/c, DRY PAN OPERATOR writes phone number on whiteboard if any questions arise. Patient endorses his caregiver does not drive but he has a friend that can pick him up upon d/c to home. Patient had ECHO done last night, awaiting results. Plan: f/u for DCP needs, no needs at this time. Patient to d/c to home with auto parts delivery driver upon medical clearance. ZEFERINO Huang Discharge Planning/Care Management CM Discharge Assessment Start: 02/07/22 10:56 Freq: Status: Active Protocol: Document 02/07/22 10:57 LN (Rec: 02/07/22 11:01 LN [id number]) Discharge Planning Assessment Assigned Purchasing/Receiving ZEFERINO Foote Advance Directives? Yes Advance Directives on File Yes History Provided By Patient,Medical Record Has Patient been admitted in last 30 No days? Prior Living Arrangements House Household Members other Comment Patient resides with friend/ caregiver Type of transporation used prior to Drives own vehicle admit Independent with ADL's Yes Is patient alert and oriented? Yes Needs Assistance With Home Chores / Shopping Discharge Plan Home Transportation Arrangement Friend Referrals Initiated None needed Whiteboard Updated in Patient Room with Yes name and ext. # of Purchasing/Receiving Please Provide Date Initial DC 02/07/22 Assessment Was Performed
[2022-02-07] MEDS: ACETAMINOPHEN 325 MG TABLET 650 MG PO (11:36)
[2022-02-07] MEDS: HYDROCODONE/ACET 5/325 TABLET 2 TAB PO ×2 (13:40→19:34)
[2022-02-07] MEDS: LACTATED RINGERS 500 ML 1000 ML IV (14:30)
[2022-02-07 15:21] LABS: Clostridium Difficile Tox PCR Negative for C. diff (Negative)
--- NOTE | 2022-02-07 15:29 | PM.EICU.INT ---
Teleintensivist Intervention Date/Time Was camera activated?: Yes Date Patient Seen: 02/07/22 Time Patient Seen: 15:29 Issue(s) Addressed Issue(s): Shock/hypotension Intervention(s) :: Patient with MAPs in low 60s. Had been on Levophed but off today. Admitted with Septic Shock, possible Cardiogenic component. TTE from yesterday notes severe Aortic Stenosis, however collapsing IVC. Patient is on 2L NC, which is his baseline due to his COPD history. He is about 700cc positive today ,good UOP per RN. After 500cc bolus of LR, BP improved, MAP is now in the 70s. If MAP continues to fall , will attempt pressor (Levophed or Bola given history) v judicious fluids.
--- NOTE | 2022-02-07 20:09 | PM.ICURNDS ---
- :: This patient was seen via real time interactive two-way audiovisual telecommunication. Note: Discussed patient with RN. Only new issue at this time is MAP has fallen to low 60s again. HR in 70s. Satting well on 2L NC. MAP had responded to 500 cc bolus earlier in the evening. She notes his urine appears concentrated. Will attempt additional 250 bolus now. If MAP remains low, will start Levophen PRN for MAP goal >65. Given severe history, want to maintain adequate pressures.
[2022-02-07] MEDS: ATORVASTATIN 20 MG TABLET PO (20:29)
[2022-02-07] MEDS: LACTATED RINGERS 1,000 ML 999 ML IV (20:30)
[2022-02-07] MEDS: LACTATED RINGERS 250 ML 1000 ML IV (20:31)
[2022-02-08] VITALS (23 sets, daily range): BP systolic 94–145; BP diastolic 52–75; PULSE 72–104; RESP 14–30; TEMP 36.5–37; O2SAT 92–98
[2022-02-08] MEDS: PANTOPRAZOLE DR 40 MG TABLET PO (06:22)
[2022-02-08 06:42] LABS: Add Manual Diff / Slide Review NO; Basophils Absolute Auto 0 /uL (0-100); Basophils Percent Auto 0.3 % (0-2); Eosinophils Absolute Auto 200 /uL (0-450); Eosinophils Percent Auto 1.4 % (2-4); Hematocrit 29.2 % (41-53); Hemoglobin 9.6 g/dL (13.5-17.5); Lymphocytes Absolute Auto 1300 /uL (1100-4500); Lymphocytes Percent Auto 11.4 % (25-40); Mean Corpuscular HGB Conc 32.8 % (30-36); Mean Corpuscular Hemoglobin 29.8 PG (26-34); Mean Corpuscular Volume 90.9 fL (80-100); Monocytes Absolute Auto 800 /uL (0-900); Neutrophils Absolute Auto 8800 /uL (1500-7000); Neutrophils Percent Auto 79.9 % (50-75); Platelet Count 186 X10^3/uL (150-400); Red Blood Cell Count 3.21 X10^6/uL (4.5-5.9); Red Cell Distribution Width 14.7 % (11.6-14.8); White Blood Cell Count 11.1 X10^3/uL (4.5-11.0)
[2022-02-08 06:44] LABS: INR 1.1 (0.9-1.3)
[2022-02-08] MEDS: ALBUTEROL/IPRATROPIUM 3 ML AMPUL INH ×4 (06:46→22:49)
--- NOTE | 2022-02-08 06:46 | PC.NURSE ---
Climatologist Note-Patient slept throughout most of the night after receiving Battiest for abdominal pain. 250ml LR bolus given at 2000 for BP 84/45(59), effective, BP stable overnight, SR, 1st degree AVB, BBB, afebrile, SpO2 >95% on 2.5L NC. In am, when patient woke, he had more chest congestion with crackles, neb tx by RT, called Dr. Jennings who ordered to DC IVF and give 40mg IV Lasix now x1.
[2022-02-08 06:51] LABS: Alanine Aminotransferase 29 IU/L (<50); Albumin 2.9 g/dL (3.5-5.0); Alkaline Phosphatase 53 U/L (38-126); Aspartate Aminotransferase 88 IU/L (17-59); BUN Creatinine Ratio 28.9 (6-22); Bilirubin Total 0.4 mg/dL (0.2-1.3); Blood Urea Nitrogen 48 mg/dL (9-20); Calcium 8.2 mg/dL (8.4-10.2); Carbon Dioxide 23 mmol/L (22-32); Chloride 106 mmol/L (98-107); Estimated Glomerular Filt Rate 40 mL/min (>60); Globulin 2.8 g/dL (1.7-4.1); Glucose 99 mg/dL (80-110); HEMOLYSIS < 15 (0-50); Magnesium 1.8 mg/dL (1.6-2.3); Potassium 4.2 mmol/L (3.4-5.1); Sodium 136 mmol/L (137-145); Total Protein 5.7 g/dL (6.3-8.2)
--- NOTE | 2022-02-08 07:40 | P.PN_ITS ---
Subjective Subjective Date Patient Seen: 02/08/22 Time Patient Seen: 07:40 Interval history: Patient seen and evaluated this morning had a good night last night on nasal cannula oxygen pulse ox is little bit low he is complaining of back and hip pain on the right side history of arthritis there. Patient states he feels a little bit brighter. Mild increased work of breathing. Received couple of fluid boluses last night blood pressures improved yesterday. It is a little bit high this morning. Has an appetite. Was able to get out of bed a little bit yester day as well. Exam Vital Signs (past 8 hours): - 02/08/22 00:00 02/08/22 00:00 02/08/22 01:00 Temperature 98.2 F 98.1 F Pulse Rate 76 75 Respiratory Rate 17 15 Blood Pressure 116/55 L 107/56 L Pulse Oximetry 97 98 Oxygen Delivery Method Nasal Cannula Oxygen Flow Rate 2.5 2.5 Fraction of Inspired Oxygen 02/08/22 02:00 02/08/22 03:00 02/08/22 04:00 Temperature 98.1 F 97.9 F 97.9 F Pulse Rate 75 72 74 Respiratory Rate 15 14 15 Blood Pressure 96/55 L 94/52 L 104/55 L Pulse Oximetry 95 97 96 Oxygen Delivery Method Oxygen Flow Rate 2.5 2.5 2.5 Fraction of Inspired Oxygen 02/08/22 05:00 02/08/22 05:00 02/08/22 06:00 Temperature 97.7 F 97.7 F Pulse Rate 73 72 Respiratory Rate 14 15 Blood Pressure 97/60 106/55 L Pulse Oximetry 94 95 Oxygen Delivery Method Nasal Cannula Oxygen Flow Rate 2.5 2.5 Fraction of Inspired Oxygen 02/08/22 06:46 Temperature Pulse Rate 83 Respiratory Rate 20 Blood Pressure Pulse Oximetry 95 Oxygen Delivery Method Nasal Cannula Oxygen Flow Rate 2 Fraction of Inspired Oxygen 28 Fraction of Inspired Oxygen 28 SaO2/FiO2 Ratio 339 Oxygen Delivery Method Nasal Cannula Oxygen Flow Rate 2 Narrative Exam Narrative: Gen.: Alert elderly gentleman mild increased work of breathing good historian some mild tremors HEENT: Pupils equal round and reactive nares are patent oral mucosa is moist Cardio: Regular rate and rhythm systolic murmur present Respiratory: Crackles more prominent in the lower lung morrow also upper crackles. Abdomen: Soft obese Extremities: 1 to 2+ lower extremity edema warm dry perfused Objective Labs Result Diagrams: 02/08/22 06:21 02/08/22 06:21 Labs: Laboratory Results - last 24 hr 02/07/22 02/08/22 02/08/22 13:00 06:21 06:21 WBC 11.1 H RBC 3.21 L Hgb 9.6 L Hct 29.2 L MCV 90.9 MCH 29.8 MCHC 32.8 RDW 14.7 Plt Count 186 Neut % (Auto) 79.9 H Lymph % (Auto) 11.4 L [place] % (Auto) 7.0 Eos % (Auto) 1.4 L Baso % (Auto) 0.3 Neut # (Auto) 8800 H Lymph # (Auto) 1300 [place] # (Auto) 800 Eos # (Auto) 200 Baso # (Auto) 0 PT 13.0 H INR 1.1 Sodium Potassium Chloride Carbon Dioxide BUN Creatinine Estimated GFR BUN/Creatinine Ratio Glucose Calcium Magnesium Total Bilirubin AST ALT Alkaline Phosphatase Total Protein Albumin Globulin Albumin/Globulin Ratio C. difficile Tox (PCR) Negative for c. diff 02/08/22 06:21 WBC RBC Hgb Hct MCV MCH MCHC RDW Plt Count Neut % (Auto) Lymph % (Auto) [place] % (Auto) Eos % (Auto) Baso % (Auto) Neut # (Auto) Lymph # (Auto) [place] # (Auto) Eos # (Auto) Baso # (Auto) PT INR Sodium 136 L Potassium 4.2 Chloride 106 Carbon Dioxide 23 BUN 48 H Creatinine 1.66 H Estimated GFR 40 L BUN/Creatinine Ratio 28.9 H Glucose 99 Calcium 8.2 L Magnesium 1.8 Total Bilirubin 0.4 AST 88 H ALT 29 Alkaline Phosphatase 53 Total Protein 5.7 L Albumin 2.9 L Globulin 2.8 Albumin/Globulin Ratio 1.0 C. difficile Tox (PCR) [facility] Medical History Acute respiratory failure with hypoxia Chronic back pain (~1959) COPD (chronic obstructive pulmonary disease) Gout (~2011) History of urinary incontinence Lung cancer (~2007) Moderate aortic stenosis by prior echocardiogram Pancreatitis (~2005) Vision disorder Surgical History Anesthesia History of lung surgery (~03/2007) Family History Father Heart disease Grandmother Age: 82 Ovarian cancer, unspecified laterality Mother Diabetes mellitus Sister No problems noted. Social History marital status: household members: other Smoking Status: Current every day smoker alcohol intake: current substance use type: does not use Assessment & Plan Assessment and plan (1) Septic shock: Status: Acute Plan Patient with septic shock possible respiratory source versus urine. On Zosyn and doxazosin. Off pressures blood pressure little bit soft last night got some fluids. Blood pressure is much better this morning. Continue with antibiotics. White blood cell count is improved. Respiratory status is mildly worsened? Acute congestive heart failure.? Patient appears to be a little bit fluid overloaded. Due to the fluids given to help support blood pressure. He is got more crackles this morning on lung exam. Mild increased work of breathing. His blood pressures and moved. A trial of 40 mg of Lasix hopefully he tolerates this and does not drop his blood pressure too much. If he tolerates it well would like to restart his metoprolol at a very low dose. Monitor blood pressure closely. Severe aortic stenosis on echocardiogram without signs of severe systolic dysfunction. Possible PFO as well. Patient will need to be evaluated by [facility] rdiology as an outpatient. We will continue to monitor closely blood pressure and keep high as possible Acute on chronic renal failure.? Patient has chronic renal disease.? Kidney function is improved from this morning again. Combination of improved blood pressure and fluids. Monitor closely electrolytes. May have to diurese today. Moderate COPD with acute exacerbation.? On IV antibiotics IV steroids and nebulizers.. 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 Continue hydrocodone.. Coronary artery disease chronic and stable.? Chronic stable continue with aspirin restart very low-dose beta-amilcar. Patient normally on 100 mg twice a day. Morbid obesity.? This certainly complicates his care.? . Hyperlipidemia patient will be restarted on a statin VTE prophylaxis with Lovenox Disposition and plan. Remove Dewitt catheter today. Dose of Lasix because of fluid overload if he tolerates this and blood pressure remained stable would like to start low-dose beta-amilcar. Stopped IV fluids. Up out of bed. Hospitalized for another day or 2. Question whether he is going to be strong enough to go home versus [facility]p Time Spent With Patient Critical Care time: I spent a total of [] minutes of critical care time on this patient's care today; this time is exclusive of procedural time. Quality VTE Deep Vein Thrombosis/Pulmonary Embolism Present on Admission: No
[2022-02-08] MEDS: HYDROCODONE/ACET 5/325 TABLET 2 TAB PO (07:45)
[2022-02-08] MEDS: FUROSEMIDE 40 MG/4 ML VIAL IV (07:45)
[2022-02-08] MEDS: DOXYCYCLINE 100 MG in SODIUM CHLORIDE 0.9% 100 ML IV ×2 (08:12→21:18)
[2022-02-08] MEDS: ENOXAPARIN 40 MG/0.4 ML SYRINGE SUBCUT (08:15)
[2022-02-08] MEDS: methylPREDNISolone 125 MG/2 ML VIAL 60 MG IV (08:15)
[2022-02-08] MEDS: ASPIRIN 81 MG CHEW TAB PO (08:15)
[2022-02-08] MEDS: PIPERACILLIN/TAZO 3.375 GM in SODIUM CHLORIDE 0.9% 100 ML IV ×2 (08:15→16:07)
[2022-02-08] MEDS: ALBUTEROL 2.5 MG/3 ML NEB (ADULT) INH (19:24)
[2022-02-08] MEDS: ATORVASTATIN 20 MG TABLET PO (21:20)
[2022-02-09] VITALS (15 sets, daily range): BP systolic 135–195; BP diastolic 65–93; PULSE 50–97; RESP 17–24; TEMP 36.2–37.1; O2SAT 94–97
[2022-02-09] MEDS: PIPERACILLIN/TAZO 3.375 GM in SODIUM CHLORIDE 0.9% 100 ML IV ×2 (00:06→08:30)
--- NOTE | 2022-02-09 05:12 | PC.NURSE ---
Patient able to transfer from chair back to bed with minimal assist. Patient attempting to sleep, and catches small increments of sleep. O2 sat stable and blood pressure acceptable.
[2022-02-09] MEDS: HYDROCODONE/ACET 5/325 TABLET 2 TAB PO (06:02)
[2022-02-09] MEDS: PANTOPRAZOLE DR 40 MG TABLET PO (06:02)
[2022-02-09] MEDS: ALBUTEROL/IPRATROPIUM 3 ML AMPUL INH ×4 (07:34→19:29)
--- NOTE | 2022-02-09 07:43 | PM.PN.1 ---
Subjective Subjective Date Patient Seen: 02/09/22 Time Patient Seen: 07:43 Interval history: Patient seen and evaluated. Patient states he had a better night last night feels a little bit stronger. Still requiring oxygen. Little shaky and tremors. He says he feels like he needs to drink. No difficulty with bowel movements. He says urination is going well. Still complaining of some back pain. Hydrocodone seem to be helpful for that. Says he is not much hungry. Exam Vital Signs (past 8 hours): - 02/09/22 00:00 02/09/22 04:00 Temperature 97.6 F 98.3 F Pulse Rate 93 H 83 Respiratory Rate 24 21 Blood Pressure 149/74 H 152/73 H Pulse Oximetry 97 96 Oxygen Flow Rate 2.5 2.5 Fraction of Inspired Oxygen 28 SaO2/FiO2 Ratio 342 Oxygen Delivery Method Nasal Cannula Oxygen Flow Rate 2.5 Narrative Exam Narrative: Gen.: Alert good historian HEENT: Pupils equal round and reactive or mucosa is moist Cardio: S1-S2 regular rate and rhythm systolic murmur present Respiratory: Lungs distant breath breath sounds. Much more clear today Abdomen: Soft nontender Extremities: Warm dry perfused Objective Labs Result Diagrams: 02/08/22 06:21 02/08/22 06:21 [facility] Medical History Acute respiratory failure with hypoxia Chronic back pain (~1959) COPD (chronic obstructive pulmonary disease) Gout (~2011) History of urinary incontinence Lung cancer (~2007) Moderate aortic stenosis by prior echocardiogram Pancreatitis (~2005) Vision disorder Surgical History Anesthesia History of lung surgery (~03/2007) Family History Father Heart disease Grandmother Age: 82 Ovarian cancer, unspecified laterality Mother Diabetes mellitus Sister No problems noted. Social History marital status: household members: other Smoking Status: Current every day smoker alcohol intake: current substance use type: does not use Assessment & Plan Assessment and plan (1) Septic shock: Status: Acute Plan Patient with septic shock possible respiratory source versus urine.? Septic shock is improved blood pressures improved continue with IV Zosyn and doxycycline. If continues to do well will transition to oral antibiotics tomorrow. Blood pressure stable off pressors patient transferred from ICU to floor care. Acute congestive heart failure.? Patient with acute congestive heart failure diastolic based on echocardiogram. Fluid overloaded continue with a little bit of IV Lasix today. Switch to p.o. Lasix tomorrow. Severe aortic stenosis on echocardiogram without signs of severe systolic dysfunction.? Possible PFO as well. Outpatient cardiac follow-up Acute on chronic renal failure.? Patient has chronic renal disease.? Laboratory tests pending this morning. Hopefully his kidney function is continuing to improve. Monitor electrolytes. Acute alcohol withdrawal. 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 Start CIWA protocol and oral lorazepam no signs of agitation just some tremors tachycardia and elevation of blood pressure Moderate COPD with acute exacerbation.? On IV antibiotics IV steroids and nebulizers.. 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 Continue hydrocodone.. Coronary artery disease chronic and stable.? Chronic stable continue with aspirin restart increased dose of beta-amilcar. Morbid obesity.? This certainly complicates his care.? . Hyperlipidemia patient will be restarted on a statin VTE prophylaxis with Lovenox Disposition and plan.? Improving from infection standpoint. Continue with diuresis today. Started on oral lorazepam. Concerning for mild alcohol withdrawal symptoms. Discharge plan is for patient to go home. Time Spent With Patient Critical Care time: I spent a total of [] minutes of critical care time on this patient's care today; this time is exclusive of procedural time. Quality VTE Deep Vein Thrombosis/Pulmonary Embolism Present on Admission: No
[2022-02-09] MEDS: methylPREDNISolone 125 MG/2 ML VIAL 60 MG IV (08:07)
[2022-02-09] MEDS: THIAMINE 100 MG TABLET PO (08:07)
[2022-02-09] MEDS: ASPIRIN 81 MG CHEW TAB PO (08:07)
[2022-02-09] MEDS: METOPROLOL ER 25 MG TABLET 50 MG PO (08:07)
[2022-02-09] MEDS: MULTIVITAMIN 1 TABLET 1 TAB PO (08:07)
[2022-02-09] MEDS: LORazepam 1 MG TABLET 2 MG PO ×3 (08:07→21:12)
[2022-02-09] MEDS: ENOXAPARIN 40 MG/0.4 ML SYRINGE SUBCUT (08:08)
[2022-02-09] MEDS: FUROSEMIDE 40 MG/4 ML VIAL IV (08:08)
[2022-02-09] MEDS: DOXYCYCLINE 100 MG in SODIUM CHLORIDE 0.9% 100 ML IV (08:08)
[2022-02-09 12:42] LABS: Add Manual Diff / Slide Review NO; Basophils Absolute Auto 0 /uL (0-100); Basophils Percent Auto 0.1 % (0-2); Eosinophils Absolute Auto 0 /uL (0-450); Hematocrit 32.2 % (41-53); Hemoglobin 10.3 g/dL (13.5-17.5); Lymphocytes Absolute Auto 600 /uL (1100-4500); Lymphocytes Percent Auto 3.6 % (25-40); Mean Corpuscular HGB Conc 32.1 % (30-36); Mean Corpuscular Hemoglobin 29.4 PG (26-34); Mean Corpuscular Volume 91.8 fL (80-100); Monocytes Absolute Auto 600 /uL (0-900); Monocytes Percent Auto 3.4 % (3-14); Neutrophils Absolute Auto 15500 /uL (1500-7000); Neutrophils Percent Auto 92.9 % (50-75); Platelet Count 254 X10^3/uL (150-400); Red Blood Cell Count 3.51 X10^6/uL (4.5-5.9); Red Cell Distribution Width 14.5 % (11.6-14.8); White Blood Cell Count 16.7 X10^3/uL (4.5-11.0)
[2022-02-09 12:46] LABS: Alanine Aminotransferase 34 IU/L (<50); Albumin 3.8 g/dL (3.5-5.0); Alkaline Phosphatase 63 U/L (38-126); Aspartate Aminotransferase 62 IU/L (17-59); Bilirubin Total 0.4 mg/dL (0.2-1.3); Blood Urea Nitrogen 40 mg/dL (9-20); Calcium 9.8 mg/dL (8.4-10.2); Carbon Dioxide 26 mmol/L (22-32); Chloride 101 mmol/L (98-107); Estimated Glomerular Filt Rate 48 mL/min (>60); Globulin 3.7 g/dL (1.7-4.1); Glucose 151 mg/dL (80-110); HEMOLYSIS < 15 (0-50); Magnesium 1.5 mg/dL (1.6-2.3); Potassium 4.8 mmol/L (3.4-5.1); Sodium 140 mmol/L (137-145); Total Protein 7.5 g/dL (6.3-8.2)
[2022-02-09] MEDS: cefTRIAXone 1,000 MG in SODIUM CHLORIDE 0.9% 100 ML 200 MG IV (14:10)
[2022-02-09] MEDS: lisinopriL 20 MG TABLET 40 MG PO ×2 (17:00→21:11)
[2022-02-09] MEDS: METOPROLOL ER 50 MG TABLET PO ×2 (17:00→21:11)
[2022-02-09] MEDS: ATORVASTATIN 20 MG TABLET PO (21:11)
[2022-02-10] VITALS (15 sets, daily range): BP systolic 122–162; BP diastolic 57–92; PULSE 64–110; RESP 16–27; TEMP 36.1–37.5; O2SAT 92–99
[2022-02-10] MEDS: LORazepam 2 MG/ML INJ 1 MG IV ×4 (00:29→06:18)
--- NOTE | 2022-02-10 02:07 | PC.NURSE ---
Addendum entered by Karmen Moe R.N. 02/10/22 03:34: Previous medication had no effect. Pt becoming slightly aggressive and more aggravated, stating that he wants to leave. manager call center MD was called. Ordered for another 2mg dose of Haldol IV now, as well as 1 mg Ativan IV now. Also ordered to change PRN Haldol from Q4H to Q2H. Original Note: Pt becoming more confused, trying to get out of bed, pulling at lines. Contacted MD salesperson [employer]. Haldol 2mg IV Q4H PRN was ordered.
[2022-02-10] MEDS: ALBUTEROL 2.5 MG/3 ML NEB (ADULT) INH (02:29)
[2022-02-10] MEDS: HALOPERIDOL 5 MG/ML VIAL 2 MG IV ×3 (02:30→06:18)
[2022-02-10 06:16] LABS: Alanine Aminotransferase 32 IU/L (<50); Albumin 3.5 g/dL (3.5-5.0); Albumin Globulin Ratio 1.1 (1.0-2.8); Alkaline Phosphatase 48 U/L (38-126); Aspartate Aminotransferase 55 IU/L (17-59); BUN Creatinine Ratio 34.1 (6-22); Bilirubin Total 0.3 mg/dL (0.2-1.3); Blood Urea Nitrogen 44 mg/dL (9-20); Calcium 9.4 mg/dL (8.4-10.2); Carbon Dioxide 28 mmol/L (22-32); Chloride 103 mmol/L (98-107); Estimated Glomerular Filt Rate 55 mL/min (>60); Globulin 3.2 g/dL (1.7-4.1); Glucose 106 mg/dL (80-110); HEMOLYSIS 38 (0-50); Potassium 4.5 mmol/L (3.4-5.1); Sodium 138 mmol/L (137-145); Total Protein 6.7 g/dL (6.3-8.2)
[2022-02-10 06:53] LABS: Add Manual Diff / Slide Review NO; Basophils Absolute Auto 0 /uL (0-100); Basophils Percent Auto 0.1 % (0-2); Eosinophils Absolute Auto 0 /uL (0-450); Hematocrit 29.4 % (41-53); Hemoglobin 9.8 g/dL (13.5-17.5); Lymphocytes Absolute Auto 1100 /uL (1100-4500); Lymphocytes Percent Auto 7.7 % (25-40); Mean Corpuscular HGB Conc 33.2 % (30-36); Mean Corpuscular Hemoglobin 30.3 PG (26-34); Mean Corpuscular Volume 91.3 fL (80-100); Monocytes Absolute Auto 1200 /uL (0-900); Monocytes Percent Auto 8.8 % (3-14); Neutrophils Absolute Auto 11700 /uL (1500-7000); Neutrophils Percent Auto 83.4 % (50-75); Platelet Count 256 X10^3/uL (150-400); Red Blood Cell Count 3.22 X10^6/uL (4.5-5.9); Red Cell Distribution Width 14.4 % (11.6-14.8)
[2022-02-10 06:56] LABS: Magnesium 1.4 mg/dL (1.6-2.3)
--- NOTE | 2022-02-10 08:09 | PM.PN.1 ---
Subjective Subjective Date Patient Seen: 02/10/22 Time Patient Seen: 08:09 Interval history: Patient seen and evaluated this morning. Had some confusion last night. Going through alcohol withdrawal. Has scheduled Ativan as needed Ativan and given a dose of Haldol. Doing well this morning. Had some tachycardia. Restarted home blood pressure medication. Oxygen status is stable. Lungs are clear. Blood counts are looking much better. We gave care with nursing staff. Exam Vital Signs (past 8 hours): - 02/10/22 01:02 02/10/22 02:29 02/10/22 03:56 Temperature Pulse Rate 92 H 110 H 106 H Respiratory Rate 20 24 22 Blood Pressure 142/66 H 147/87 H Pulse Oximetry 97 Oxygen Delivery Method Nasal Cannula Oxygen Flow Rate 2.5 02/10/22 04:37 02/10/22 04:00 02/10/22 07:24 Temperature 97.8 F Pulse Rate 95 H 105 H 76 Respiratory Rate 24 27 H 22 Blood Pressure 151/66 H 147/87 H 151/66 H Pulse Oximetry 96 Oxygen Delivery Method Oxygen Flow Rate 2.5 Fraction of Inspired Oxygen 28 SaO2/FiO2 Ratio 342 Oxygen Delivery Method Nasal Cannula Oxygen Flow Rate 2.5 Narrative Exam Narrative: Gen.: Alert confusion HEENT: Pupils equal round and reactive or mucosa is moist Cardio: Regular rate and rhythm systolic murmur present Respiratory: Lung sounds improved respiratory status distant breath sounds with some small rhonchorous breathing. Abdomen: Soft obese nontender Extremities: Warm dry perfused some lower extremity edema Objective Labs Result Diagrams: 02/10/22 05:40 02/10/22 05:40 Labs: Laboratory Results - last 24 hr 02/09/22 02/09/22 02/10/22 12:10 12:10 05:40 WBC 16.7 H D 14.0 H RBC 3.51 L 3.22 L Hgb 10.3 L 9.8 L Hct 32.2 L 29.4 L MCV 91.8 91.3 MCH 29.4 30.3 MCHC 32.1 33.2 RDW 14.5 14.4 Plt Count 254 256 Neut % (Auto) 92.9 H 83.4 H Lymph % (Auto) 3.6 L 7.7 L [place] % (Auto) 3.4 8.8 Eos % (Auto) 0.0 L 0.0 L Baso % (Auto) 0.1 0.1 Neut # (Auto) 54800 H 30644 H Lymph # (Auto) 600 L 1100 [place] # (Auto) 600 1200 H Eos # (Auto) 0 0 Baso # (Auto) 0 0 Sodium 140 Potassium 4.8 Chloride 101 Carbon Dioxide 26 BUN 40 H Creatinine 1.43 H Estimated GFR 48 L BUN/Creatinine Ratio 28.0 H Glucose 151 H Calcium 9.8 Magnesium 1.5 L Total Bilirubin 0.4 AST 62 H ALT 34 Alkaline Phosphatase 63 Total Protein 7.5 Albumin 3.8 Globulin 3.7 Albumin/Globulin Ratio 1.0 02/10/22 02/10/22 05:40 05:40 WBC RBC Hgb Hct MCV MCH MCHC RDW Plt Count Neut % (Auto) Lymph % (Auto) [place] % (Auto) Eos % (Auto) Baso % (Auto) Neut # (Auto) Lymph # (Auto) [place] # (Auto) Eos # (Auto) Baso # (Auto) Sodium 138 Potassium 4.5 Chloride 103 Carbon Dioxide 28 BUN 44 H Creatinine 1.29 H Estimated GFR 55 L BUN/Creatinine Ratio 34.1 H Glucose 106 Calcium 9.4 Magnesium 1.4 L Total Bilirubin 0.3 AST 55 ALT 32 Alkaline Phosphatase 48 Total Protein 6.7 Albumin 3.5 Globulin 3.2 Albumin/Globulin Ratio 1.1 [facility] Medical History Acute respiratory failure with hypoxia Chronic back pain (~1959) COPD (chronic obstructive pulmonary disease) Gout (~2011) History of urinary incontinence Lung cancer (~2007) Moderate aortic stenosis by prior echocardiogram Pancreatitis (~2005) Vision disorder Surgical History Anesthesia History of lung surgery (~03/2007) Family History Father Heart disease Grandmother Age: 82 Ovarian cancer, unspecified laterality Mother Diabetes mellitus Sister No problems noted. Social History marital status: household members: other Smoking Status: Current every day smoker alcohol intake: current substance use type: does not use Assessment & Plan Assessment and plan (1) Septic shock: Status: Acute Plan Patient with septic shock possible respiratory source versus urine.? Reviewed cultures. Pharmacy made recommendations on antibiotics. Stop Zosyn and doxycycline currently on ceftriaxone 1 g IV Q 24 hours septic shock is resolved. Will continue with IV antibiotics and switch to oral as he gets closer to discharge. Acute alcohol withdrawal with encephalopathy and agitation. Certainly prolonging his hospital stay. We required multiple doses of lorazepam and Haldol last night. Will continue to treat with medication to help reduce agitation. Continue with thamine. Acute congestive heart failure. Patient's respiratory status is improving. I think he is less fluid overloaded. Will switch from IV Lasix to p.o. Lasix DC IV fluids. Monitor ins and outs. Severe aortic stenosis on echocardiogram without signs of severe systolic dysfunction.? Possible PFO as well.? Outpatient cardiac follow-up Acute on chronic renal failure.? Renal function has improved. Replace magnesium today Moderate COPD with acute exacerbation.? Switch to oral steroids from IV steroids continue with nebulizers and oxygen and antibiotics. 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 Continue hydrocodon as needed for back pain. Coronary artery disease chronic and stable.? Chronic stable continue with aspirin restart increased dose of beta-amilcar. Morbid obesity.? This certainly complicates his care.? Making difficulty for transfer moving getting out of bed etc.. Hyperlipidemia patient will be restarted on a statin VTE prophylaxis with Lovenox GI prophylaxis. Starting on oral proton pump inhibitor Disposition and plan.? Patient's alcohol withdrawal is complicating his discharge plan anticipate hospitalization for another 1-2 days may need [facility] care after hospital discharge. Time Spent With Patient Critical Care time: I spent a total of [] minutes of critical care time on this patient's care today; this time is exclusive of procedural time. Quality VTE Deep Vein Thrombosis/Pulmonary Embolism Present on Admission: No
[2022-02-10] MEDS: ENOXAPARIN 40 MG/0.4 ML SYRINGE SUBCUT (10:21)
[2022-02-10] MEDS: MAGNESIUM SULFATE 2 GM/50 ML PIGGYBACK IV (10:21)
[2022-02-10] MEDS: FUROSEMIDE 40 MG TABLET PO (11:42)
[2022-02-10] MEDS: MULTIVITAMIN 1 TABLET 1 TAB PO (11:42)
[2022-02-10] MEDS: PANTOPRAZOLE DR 40 MG TABLET PO (11:42)
[2022-02-10] MEDS: lisinopriL 20 MG TABLET 40 MG PO ×2 (11:42→21:01)
[2022-02-10] MEDS: METOPROLOL ER 50 MG TABLET PO ×2 (11:43→21:01)
[2022-02-10] MEDS: THIAMINE 100 MG TABLET PO (11:43)
[2022-02-10] MEDS: ASPIRIN 81 MG CHEW TAB PO (11:43)
[2022-02-10] MEDS: predniSONE 20 MG TABLET 60 MG PO (11:43)
[2022-02-10] MEDS: ALBUTEROL/IPRATROPIUM 3 ML AMPUL INH ×3 (11:47→22:06)
[2022-02-10] MEDS: LORazepam 1 MG TABLET 2 MG PO ×2 (13:51→23:17)
--- NOTE | 2022-02-10 14:19 | CM.DPC ---
DCP HH vs SNF Planning Per MD and RN, pt now having ETOH withdrawal and was agitated and confused with CIWA of 8-10 but now clearing some and not agitated. MD anticipates likely HH vs SNF pending his progress but PT not ordered yet as pt not quite medically appropriate yet. SW met bedside with pt and explained role and discussed HH and pt denies he has any HH hx and preference would be home with his live-in caregiver and HH but would consider SNF pending his progress. Pt denies any SNF hx either. Pt currently denies any HH or SNF preference at this time. Pt aware that he will likely work with PT tomorrow towards help in identifying d/c needs when he is more medically appropriate to participate. SW made initial HH referral to [facility] based on the Vendor Calendar and no pt preference and faxed initial clinicals to review. SW also made [facility], [facility] as a backup plan pending PT eval and recommendations. Plan: SW to follow closely for PT eval tomorrow if pt medically appropriate to participate towards determining HH vs SNF at d/c. F2F needed if home with HH. PASRR needed if d/c to SNF. Suzette Mitchell MSW
[2022-02-10] MEDS: cefTRIAXone 1,000 MG in SODIUM CHLORIDE 0.9% 100 ML 200 MG IV (16:10)
[2022-02-10] MEDS: ATORVASTATIN 20 MG TABLET PO (21:01)
[2022-02-11] VITALS (13 sets, daily range): BP systolic 134–185; BP diastolic 61–84; PULSE 67–96; RESP 16–28; TEMP 36.4–37.1; O2SAT 90–99
[2022-02-11] MEDS: LORazepam 1 MG TABLET 2 MG PO (06:52)
[2022-02-11] MEDS: PANTOPRAZOLE DR 40 MG TABLET PO (06:52)
[2022-02-11 07:16] LABS: Add Manual Diff / Slide Review NO; Basophils Absolute Auto 0 /uL (0-100); Basophils Percent Auto 0.1 % (0-2); Eosinophils Absolute Auto 0 /uL (0-450); Hematocrit 33.1 % (41-53); Hemoglobin 10.7 g/dL (13.5-17.5); Lymphocytes Absolute Auto 900 /uL (1100-4500); Lymphocytes Percent Auto 8.1 % (25-40); Mean Corpuscular HGB Conc 32.2 % (30-36); Mean Corpuscular Hemoglobin 29.2 PG (26-34); Mean Corpuscular Volume 90.6 fL (80-100); Monocytes Absolute Auto 900 /uL (0-900); Monocytes Percent Auto 7.9 % (3-14); Neutrophils Absolute Auto 9700 /uL (1500-7000); Neutrophils Percent Auto 83.9 % (50-75); Platelet Count 282 X10^3/uL (150-400); Red Blood Cell Count 3.65 X10^6/uL (4.5-5.9); Red Cell Distribution Width 14.6 % (11.6-14.8); White Blood Cell Count 11.6 X10^3/uL (4.5-11.0)
[2022-02-11 07:32] LABS: Alanine Aminotransferase 34 IU/L (<50); Albumin 3.5 g/dL (3.5-5.0); Albumin Globulin Ratio 1.1 (1.0-2.8); Alkaline Phosphatase 50 U/L (38-126); Aspartate Aminotransferase 38 IU/L (17-59); BUN Creatinine Ratio 36.8 (6-22); Bilirubin Total 0.3 mg/dL (0.2-1.3); Blood Urea Nitrogen 39 mg/dL (9-20); Calcium 9.9 mg/dL (8.4-10.2); Carbon Dioxide 31 mmol/L (22-32); Chloride 101 mmol/L (98-107); Estimated Glomerular Filt Rate > 60 mL/min (>60); Globulin 3.1 g/dL (1.7-4.1); Glucose 135 mg/dL (80-110); HEMOLYSIS < 15 (0-50); Potassium 4.8 mmol/L (3.4-5.1); Sodium 139 mmol/L (137-145); Total Protein 6.6 g/dL (6.3-8.2)
[2022-02-11] MEDS: ALBUTEROL/IPRATROPIUM 3 ML AMPUL INH ×5 (08:46→22:26)
--- NOTE | 2022-02-11 09:08 | P.PN_ITS ---
Subjective Subjective Date Patient Seen: 02/11/22 Time Patient Seen: 09:09 Interval history: Patient seen and evaluated this morning discussed care with nursing staff. Patient had a much better night last night. He is alert awake this morning. Says yesterday is nights and days were turned around. He is unsure of the month and today. The does feel stronger. Says he is eating better his respiratory status is better no problems with urination been a day or 2 since he is had a bowel movement. He has been a little hypertensive and tachycardic. No fever. Exam Vital Signs (past 8 hours): - 02/11/22 04:00 02/11/22 08:09 02/11/22 08:46 Temperature 97.6 F 98.8 F Pulse Rate 77 74 94 H Respiratory Rate 23 19 22 Blood Pressure 153/68 H 185/84 H Pulse Oximetry 96 97 90 L Oxygen Delivery Method Nasal Cannula Oxygen Flow Rate 3 2.5 2 Fraction of Inspired Oxygen 28 Fraction of Inspired Oxygen 28 SaO2/FiO2 Ratio 321 Oxygen Delivery Method Nasal Cannula Oxygen Flow Rate 2 Narrative Exam Narrative: General: Alert some mild residual confusion HEENT: Pupils equal round and reactive or mucosa is moist neck is supple Cardio: S1-S2 systolic murmur present Respiratory: Better breath sounds. LEs rhonchorous. Some still fine crackles. Abdomen: Soft obese nontender Extremities: Trace edema warm dry perfused Objective Labs Result Diagrams: 02/11/22 06:43 02/11/22 06:43 Labs: Laboratory Results - last 24 hr 02/11/22 02/11/22 06:43 06:43 WBC 11.6 H RBC 3.65 L Hgb 10.7 L Hct 33.1 L MCV 90.6 MCH 29.2 MCHC 32.2 RDW 14.6 Plt Count 282 Neut % (Auto) 83.9 H Lymph % (Auto) 8.1 L [place] % (Auto) 7.9 Eos % (Auto) 0.0 L Baso % (Auto) 0.1 Neut # (Auto) 9700 H Lymph # (Auto) 900 L [place] # (Auto) 900 Eos # (Auto) 0 Baso # (Auto) 0 Sodium 139 Potassium 4.8 Chloride 101 Carbon Dioxide 31 BUN 39 H Creatinine 1.06 Estimated GFR > 60 BUN/Creatinine Ratio 36.8 H Glucose 135 H Calcium 9.9 Total Bilirubin 0.3 AST 38 ALT 34 Alkaline Phosphatase 50 Total Protein 6.6 Albumin 3.5 Globulin 3.1 Albumin/Globulin Ratio 1.1 [facility] Medical History Acute respiratory failure with hypoxia Chronic back pain (~1959) COPD (chronic obstructive pulmonary disease) Gout (~2011) History of urinary incontinence Lung cancer (~2007) Moderate aortic stenosis by prior echocardiogram Pancreatitis (~2005) Vision disorder Surgical History Anesthesia History of lung surgery (~03/2007) Family History Father Heart disease Grandmother Age: 82 Ovarian cancer, unspecified laterality Mother Diabetes mellitus Sister No problems noted. Social History marital status: household members: other Smoking Status: Current every day smoker alcohol intake: current substance use type: does not use Assessment & Plan Assessment and plan (1) Septic shock: Status: Acute Plan Patient with septic shock possible respiratory source versus urine.? Resolved on IV ceftriaxone will transition to oral Omnicef as an outpatient. Acute alcohol withdrawal with encephalopathy and agitation.? Withdrawal symptoms are decreasing. CIWA score is under 7. Stop Haldol. P.r.n. lorazepam dec reased oral lorazepam to 1 mg 3 times a day work with physical therapy. Blood pressure and pulse much better. Acute congestive heart failure. Respiratory status is improving. Continue with the oral Lasix. Monitor electrolytes. Severe aortic stenosis on echocardiogram without signs of severe systolic dysfunction.? Possible PFO as well.? Outpatient cardiac follow-up Acute on chronic renal failure. Much improved. Stop IV fluids. Continue with oral diuresis. Renal function is at baseline Moderate COPD with acute exacerbation.? On oral prednisone. 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 Continue hydrocodon as needed for back pain. Coronary artery disease chronic and stable.? Chronic stable continue back on his beta-amilcar aspirin and statin medication. Morbid obesity.? This certainly complicates his care.? Making difficulty for transfer moving getting out of bed etc.. Hyperlipidemia on statin Hypertension blood pressure is improving control. VTE prophylaxis with Lovenox GI prophylaxis.? Starting on oral proton pump inhibitor Disposition and plan.? Patient is much improved stable from all medical conditions awaiting arrangement for [facility] facility placement for strengthening. PT evaluation today Time Spent With Patient Critical Care time: I spent a total of [] minutes of critical care time on this patient's care today; this time is exclusive of procedural time. Quality VTE Deep Vein Thrombosis/Pulmonary Embolism Present on Admission: No
[2022-02-11] MEDS: lisinopriL 20 MG TABLET 40 MG PO ×2 (09:24→21:33)
[2022-02-11] MEDS: predniSONE 20 MG TABLET 60 MG PO (09:24)
[2022-02-11] MEDS: METOPROLOL ER 50 MG TABLET PO ×2 (09:24→21:31)
[2022-02-11] MEDS: ENOXAPARIN 40 MG/0.4 ML SYRINGE SUBCUT (09:25)
[2022-02-11] MEDS: ASPIRIN 81 MG CHEW TAB PO (09:25)
[2022-02-11] MEDS: FUROSEMIDE 40 MG TABLET PO (09:25)
[2022-02-11] MEDS: MULTIVITAMIN 1 TABLET 1 TAB PO (09:25)
[2022-02-11] MEDS: THIAMINE 100 MG TABLET PO (09:25)
--- NOTE | 2022-02-11 09:55 | PT.IIE ---
Current Diagnoses Sepsis, unspecified organism (02/06/22) Morbid (severe) obesity due to excess calories (02/06/22) Nonrheumatic aortic (valve) stenosis (02/06/22) Heart failure, unspecified (02/06/22) Pneumonia, unspecified organism (02/06/22) Chronic obstructive pulmonary disease with (acute) lower respiratory infection (02/06/22) Chronic obstructive pulmonary disease, unspecified (02/06/22) Acute kidney failure, unspecified (02/06/22) Chronic kidney disease, stage 3b (02/06/22) Chronic kidney disease, unspecified (02/06/22) Altered mental status, unspecified (02/06/22) Severe sepsis with septic shock (02/06/22) Body mass index [BMI] 40.0-44.9, adult (02/06/22) Personal history of other malignant neoplasm of bronchus and lung (02/06/22) Surgical History (Last Reviewed 02/07/22 @ 09:27 by Jeffrey Jennings MD) Anesthesia History of lung surgery (~03/2007) Medical History (Last Reviewed 02/07/22 @ 09:27 by Jeffrey Jennings MD) Acute respiratory failure with hypoxia Chronic back pain (~1959) COPD (chronic obstructive pulmonary disease) Gout (~2011) History of urinary incontinence Lung cancer (~2007) Moderate aortic stenosis by prior echocardiogram Pancreatitis (~2005) Vision disorder Physical Therapy Inpatient Evaluation/Re-Eval M1 PT/OT-IP Prior Functional Status Start: 02/11/22 13:34 Freq: NEEDED Status: Active Protocol: Document 02/11/22 09:55 AB (Rec: 02/11/22 13:47 AB [id number]) Medical Review Prior Functional Status Medical History Reviewed Yes Communication with confusion but able to answer questions Mobility and Gait stated that he is modified independent with all mobilities and ambulation using a 4WW or a SPC depending on which one is available. Social History Household Members friend(s) Living Arrangements House Number of Floors (Floors) One Floor Number of Stairs To Enter/Railing? 4 steps R rail ascending Home Environment High Toilet,Walk in Shower, Built-In Shower Seat Home Equipment Four Wheel Walker,Straight Cane,Hand Held Shower,Grab Bars Near Toilet,Grab Bars In Shower Additional Social History Comment pt stated that he a friend that lives with him that assists him with house chores, groceries and assists him with getting in/out of the bed if needed M2 PT-IP Current Condition Start: 02/11/22 13:34 Freq: NEEDED Status: Active Protocol: Document 02/11/22 09:55 AB (Rec: 02/11/22 13:47 AB [id number]) Physical Therapy Current Condition Current Condition Evaluation Date 02/11/22 Treatment Diagnosis sepsis;PNA; UTI; CHF; difficulty in walking Onset Date 02/06/22 M3 PT-IP Subjective Start: 02/11/22 13:34 Freq: NEEDED Status: Active Protocol: Document 02/11/22 09:55 AB (Rec: 02/11/22 13:47 AB [email or web address]) Subjective Physical Therapy Visit Type Type Initial Evaluation Visit Start Time 09:55 Visit Stop Time 10:30 Total Visit Minutes 35 Number of TERMITE TREATER Visits 0 Physical Therapy Visit Comments Patient Comments agreeable to do PT Therapy Pain Assessment Pain When Pain Assessed At Rest Pain Present Pain Present Pain Reported Location Back Scale Used pain scale not stated Description Chronic Pain Management Techniques Distraction,Modification of Treatment,Re-positioning, Timing of Activity with Medications M4 PT-IP Mobility and Gait Start: 02/11/22 13:34 Freq: NEEDED Status: Active Protocol: Document 02/11/22 09:55 AB (Rec: 02/11/22 13:47 AB [id number]) PT-Bed Mobility Assessment Supine to Sit Supine to Sit Maximum Assistance,1 Person Assistance,2 Person Assistance ,Head of Bed Elevated,Bedrails Sit to Supine Sit to Supine Maximum Assistance,1 Person Assistance,2 Person Assistance ,Bedrails PT-Transfer Assessment Sit to and From Stand Sit to and from Stand Moderate Assistance,1 Person Assistance,Use of Upper Extremities Equipment Transfer Assistive Device Gait Belt,Front Wheeled Walker Orthotic/Prosthetic Devices or Brace: No Transfers Transfer Destination Bed,Chair Transfer Technique Stand Step Pivot Transfer Ability Level of Assist Moderate Assistance,1 Person Assistance,Use of Upper Extremities Comments Mobility Comments pt sitting on the chair and agreed to do PT. O2 sat with O2 on: 95% completed sit to stand mod A and ambulated using FWW ~ 12 ft mod A and cues. presents with unsteady gait with increase forward trunk flexion. pt sat on EOB . (+) SOB. O2 sat checked: 95 % completed sit to supine max A x 1-2 and max cues for LE elevation. completed supine to sit max A x 1-2 and max cues. completed sit to stand from EOB mod A and step transfer to chair using fWW mod A and cues. positioned pt on chair. call light and table placed within reach. ( +)SOB with O2 sat 96-97% with O2 on Gait Assessment Gait Gait Assistance Required: Moderate Assistance,1 Person Assist Distance (Feet) 12 Able to Maintain Weight Bearing Status Yes During Gait Assistive Devices Assistive Device Gait Belt,Front Wheeled Walker Orthotic/Prosthetic Devices or Brace: No Gait Deviations General Gait Pattern Antalgic,Ataxic,Decreased Stride Length,Decreased Feet Clearance,Step-to Gait,Wide Based Gait Factors Limiting Gait Function Factors Limiting Gait Function Decreased Activity Tolerance, Decreased Strength,Difficulty Following Directions,Limited Range of Motion,Pain,Poor Balance,Poor Safety Awareness, Respiratory Distress PT-Balance Assessment Sitting Balance and Reactions Static Sitting Balance Ability Good Dynamic Sitting Balance Ability Fair Standing Balance and Reactions Static Standing Balance Ability Fair Dynamic Standing Balance Ability Poor Device Used FWW M5 PT-IP Objective Assessments Start: 02/11/22 13:34 Freq: NEEDED Status: Active Protocol: Document 02/11/22 09:55 AB (Rec: 02/11/22 13:47 AB [id number]) Orientation Orientation/Cognition Level of Alertness Confusional State Orientation Name Language Function Ability Hard of Hearing Safety Awareness Decreased Safety Awareness Memory Description Short Term Impaired Comments with confusion Gross Range of Motion Lower Extremity ROM Assessment Within Functional Limits Strength Lower Extremity Strength Assessment Bilaterally Impaired Hip 3+/5 Knee 3+/5 Muscle Tone Muscle Tone WNL Yes Comments Muscle Tone Comments (+) UE/ trunk tremors M6 PT-IP Treatment Start: 02/11/22 13:34 Freq: NEEDED Status: Active Protocol: Document 02/11/22 09:55 AB (Rec: 02/11/22 13:47 AB [email or web address]) Physical Therapy Treatment Education Education Provided Safety M7 PT-IP Assessment and Plan Start: 02/11/22 13:34 Freq: NEEDED Status: Active Protocol: Document 02/11/22 09:55 AB (Rec: 02/11/22 13:47 AB [email or web address]) PT Summary Assessment and Plan Potential Rehabilitation Potential Fair Status of Condition at Evaluation Evolving Summary Impairments Pain,ROM,Strength,Balance, Coordination,Sensation,Tone, Cognition,Bed Mobility, Transfers,Gait,Activity Tolerance Assessment Summary pt requiring max A x 1-2 with bed mobility, mod A for transfers and ambultion using FWW. pt presents with decrease activity tolerance affecting mobility assistance. d/c plan depending on progress and if pt's friend will be able to assist pt safely. at this time, pt may require SNF rehab. will continue to assess progress. Goals Bed Mobility Goal Minimal Assistance Transfer Goal Standby Assistance,Front Wheeled Walker Gait Goal Standby Assistance,Front Wheel Walker Gait Distance 100 Other Goals improve bed mobility to SBA up/down 4 steps R rail ascending SBA Days to Meet Goals 10 Frequency of Treatment Frequency Of Treatment Once a Day Treatment Plan Physical Therapy Treatment Plan Bed Mobility Training,Transfer Training,Gait Training, Therapeutic Exercise,Balance Retraining,Discharge Planning, Hot or Cold Pack,Neuromuscular Re-ed,Coordination Retraining Precautions Other Precautions O2 sat Recommendations To Nursing Amount of Assist Needed 1 Person Assist Discharge Recommendations PT Discharge Recommendations Home with 29/09 Assist Available,Home Health,SNF Rehab,Home vs SNF Equipment Needed for Home Before FWW if not safe with 4WW Discharge Transportation Needs at Discharge Private Vehicle,Wheelchair/ Cabulance
[2022-02-11] MEDS: cefTRIAXone 1,000 MG in SODIUM CHLORIDE 0.9% 100 ML 200 MG IV (14:56)
[2022-02-11] MEDS: LORazepam 1 MG TABLET PO ×2 (14:56→21:32)
[2022-02-11] MEDS: ATORVASTATIN 20 MG TABLET PO (21:32)
[2022-02-11] MEDS: HYDROCODONE/ACET 5/325 TABLET 2 TAB PO (21:33)
[2022-02-12] VITALS: BP 142/72; PULSE 91; RESP 18; TEMP 36.5; O2SAT 92
[2022-02-12 04:00] VITALS: BP 142/72; PULSE 71; RESP 19; TEMP 36.6; O2SAT 94
[2022-02-12] MEDS: PANTOPRAZOLE DR 40 MG TABLET PO (06:08)
[2022-02-12] MEDS: LORazepam 1 MG TABLET PO (06:08)
[2022-02-12 08:00] VITALS: BP 186/93; PULSE 60; RESP 21; TEMP 36.6; O2SAT 97
[2022-02-12 09:25] VITALS: PULSE 60; RESP 20; O2SAT 93
[2022-02-12] MEDS: ALBUTEROL/IPRATROPIUM 3 ML AMPUL INH (09:25)
[2022-02-12 10:22] VITALS: BP 186/93; PULSE 60
[2022-02-12] MEDS: METOPROLOL ER 50 MG TABLET PO (10:22)
[2022-02-12] MEDS: predniSONE 20 MG TABLET 60 MG PO (10:22)
[2022-02-12] MEDS: ASPIRIN 81 MG CHEW TAB PO (10:22)
[2022-02-12 10:23] VITALS: BP 186/93; PULSE 62
[2022-02-12] MEDS: lisinopriL 20 MG TABLET 40 MG PO (10:23)
[2022-02-12] MEDS: FUROSEMIDE 40 MG TABLET PO (10:24)
[2022-02-12] MEDS: MULTIVITAMIN 1 TABLET 1 TAB PO (10:24)
[2022-02-12] MEDS: ENOXAPARIN 40 MG/0.4 ML SYRINGE SUBCUT (10:24)
--- NOTE | 2022-02-12 10:44 | P.DS_ITS ---
History of Present Illness History of Present Illness Chief complaint: SOB Narrative: 86-year-old male with a history of lung cancer congestive heart failure COPD chronic kidney disease coronary artery disease hypertension hyperlipidemia and morbid obesity presents to the emergency department with significant weakness and shortness of breath. Patient states for the last 2-3 weeks he is began to have increasing weakness. Always has a cough and he felt like his cough was more productive. He was spending more time in the chair. Did not have fevers or chills. Last night he fell out of bed and could not get up. And 911 was called. He states he has been eating well. He has a history of heart disease and heart failure and chronic lung disease. He says he is lost his appetite a little bit. Has not had chest pain or palpitations. His main concern is just increased work of breathing. He is had no changes in his bowel movement or urination. Has inhalers and oxygen at home. He says he uses his oxygen at home and his inhalers sometimes. Says he has been few days since he is taking his regular medication. He has a partner at home with him who he lives with. He does still drive. On my exam in the ICU he is a good historian. Remembers our visits a few weeks ago. We discussed his code status. He would like to be a full code but he does not want to be on long-term mechanical ventilation mechanical ventilation. Says right now he feels very weak. He is a little bit short of breath but he does feel like he is a little bit better. He also asked me if he thinks this is his time to . Discharge Providers Provider Date of admission: 02/06/22 21:24 Discharge Date: 02/12/22 Primary care physician: Jeffrey Jennings MD Consults: 02/06/22 22:04 Consult to Tele-production operations inspector Routine Comment: Consulting Provider: Becky Tele-intensivists Reason for consultation: Senior Planning Manager services Has provider been notified: Yes 02/11/22 08:56 Consult to Physical Therapy Evaluate & Treat Comment: ambulate Physician Instructions: Evaluate and Treat 02/11/22 08:57 Consult to Discharge Planning Routine Comment: snf placement Discharge provider: Jeffrey Jennings MD Summary Hospital Course Discharge Diagnosis: Septic shock due E coli respiratory source 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 Questionable source urinary tract infection versus respiratory component of pneumonia. Was admitted to their ICU started on pressors and broad-spectrum antibiotics with Zosyn and d oxycycline. Required pressors with Levophed on and off for 24 hours. He also received fluids to help support his blood pressure per protocol. Patient was transitioned from Zosyn and doxycycline to ceftriaxone after sputum culture grew out E coli. Patient had improvement of white blood cell count and blood pressure during hospital stay. Patient required moderate oxygen requirements initially and this improved. At the time of discharge. He will be transitioned to oral antibiotics with Omnicef for an additional 5 days. Which should cover his E coli infection. Acute alcohol withdrawal. Patient during his hospital stay went through withdrawal from alcohol. Patient at the time of discharge was stable. Patient had scheduled lorazepam and as needed lorazepam. His symptoms of alcohol withdrawal at the time of discharge were improved and requiring low doses of scheduled lorazepam. During hospital stay patient had exacerbation of congestive heart failure. Patient's echocardiogram was done during hospital stay. Patient has a history of diastolic heart failure with acute fluid overload. This was exacerbated due to the fluids he was given due to his septic shock. At the time of hospital discharge. His heart failure was improved. Once the IV fluids were stopped he was given IV diuresis and he was euvolemic. He will be discharged with Lasix COPD. Patient has moderate to severe COPD with occasional oxygen use at home during the day and nighttime oxygen because of his underlying infection and respiratory compromise patient was started on IV steroids nebulizers and a ntibiotics and this was stable at discharge During his echocardiogram patient was found to have severe aortic stenosis. Patient will need follow-up of this as an outpatient Patient during the hospital stay had acute on chronic renal failure due to his underlying sepsis. His renal failure improved back to baseline at the time of discharge. His continued chronic problems including obesity coronary artery disease hyperlipidemia hypertension were stable Exam Vital Signs (past 8 hours): - 02/12/22 04:00 02/12/22 09:25 02/12/22 08:00 Temperature 97.9 F 97.9 F Pulse Rate 71 60 60 Respiratory Rate 19 20 21 Blood Pressure 142/72 H 186/93 H Pulse Oximetry 94 93 97 Oxygen Delivery Method Nasal Cannula Oxygen Flow Rate 2 2 3 02/12/22 10:22 02/12/22 10:23 Temperature Pulse Rate 60 62 Respiratory Rate Blood Pressure 186/93 H 186/93 H Pulse Oximetry Oxygen Delivery Method Oxygen Flow Rate Fraction of Inspired Oxygen 28 SaO2/FiO2 Ratio 353 Oxygen Delivery Method Nasal Cannula Oxygen Flow Rate 2 Objective Labs Result Diagrams: 02/11/22 06:43 02/11/22 06:43 [facility] Medical History Acute respiratory failure with hypoxia Chronic back pain (~1959) COPD (chronic obstructive pulmonary disease) Gout (~2011) History of urinary incontinence Lung cancer (~2007) Moderate aortic stenosis by prior echocardiogram Pancreatitis (~2005) Vision disorder Surgical History Anesthesia History of lung surgery (~03/2007) Family History Father Heart disease Grandmother Age: 82 Ovarian cancer, unspecified laterality Mother Diabetes mellitus Sister No problems noted. Social History marital status: household members: friend(s) Smoking Status: Current every day smoker alcohol intake: current substance use type: does not use Discharge Plan Discharge Plan Patient Disposition: SNF Transfer to: [facility] Healthcare Provider Discharge Comment: recheck bmp in 5 days Discharge orders & Medications Prescriptions: New furosemide 40 mg Tablet 40 mg PO DAILY Qty: 30 0RF acetaminophen 325 mg Tablet 650 mg PO Q6H PRN (Reason: Fever/Mild Pain (1-3)) Qty: 30 0RF hydrocodone-acetaminophen 5-325 mg Tablet 1 tab PO Q6HR PRN (Reason: pain) Qty: 20 0RF prednisone 20 mg Tablet 60 mg PO DAILY Qty: 20 0RF pantoprazole 40 mg Tablet,Delayed Release (Dr/Ec) 40 mg PO 0700 Qty: 20 0RF hydrocodone-acetaminophen 5-325 mg tablet 1 tab PO Q6H PRN (Reason: pain) Qty: 20 0RF Continued lidocaine [Lidoderm] 5 % adhesive patch,medicated 1 patch TOP DAILY Qty: 15 0RF Rx Instructions: leave on most painful area for 12 hrs gabapentin 300 mg capsule 300 mg PO BEDTIME Qty: 30 1RF albuterol sulfate [Ventolin HFA] 90 mcg/actuation HFA aerosol inhaler 2 puff INHALATION Q4H PRN (Reason: Shortness Of Breath) Qty: 8.5 3RF Rx Instructions: 2 puffs every 4-6 hours as needed for shortness of breath - use with spacer aspirin 81 mg tablet,chewable 81 mg PO DAILY fluticasone propion-salmeterol 250-50 mcg/dose blister with device 1 inh INHALATION BID Label Comments: INHALE ONE PUFF BY MOUTH TWO TIMES DAILY atorvastatin 20 mg tablet 20 mg PO BEDTIME Label Comments: TAKE 1 TABLET BY MOUTH EVERY NIGHT AT BEDTIME metoprolol tartrate 100 mg tablet 100 mg PO BID lisinopril 40 mg Tablet 40 mg PO BID Discontinued cyclobenzaprine 10 mg tablet 10 mg PO TID PRN (Reason: muscle spasm) Qty: 30 0RF ketorolac 10 mg tablet 10 mg PO Q6H PRN (Reason: pain) Qty: 14 0RF Disabled Parking Permit 1 ea DAILY No Action (DME) [employer] MDI Spacer Spacer See Rx Instructions .Route Qty: 1 3RF Rx Instructions: As directed Follow up/Referrals: Jeffrey Jennings MD [Primary Care Provider] - Discharge Data Primary Care Provider: Jeffrey Jennings Quality VTE Deep Vein Thrombosis/Pulmonary Embolism Present on Admission: No
[2022-02-12 11:26] LABS: Adenovirus Not Detected (Not Detect); B. parapertussis Not Detected (Not Detecte); Bordetella pertussis Not Detected (Not Detecte); Chlamydophila pneumoniae Not Detected (Not Detect); Coronavirus 229E Not Detected (Not Detect); Coronavirus HKU1 Not Detected (Not Detect); Coronavirus NL 63 Not Detected (Not Detect); Coronavirus OC43 Not Detected (Not Detect); Human Metapneumovirus Not Detected (Not Detect); Human Rhinovirus/Enterovirus Not Detected (Not Detect); Influenza A Not Detected (Not Detect); Influenza B Not Detected (Not Detect); Mycoplasma pneumoniae Not Detected (Not Detect); Parainfluenza Virus 1 Not Detected (Not Detect); Parainfluenza Virus 2 Not Detected (Not Detect); Parainfluenza Virus 3 Not Detected (Not Detect); Parainfluenza Virus 4 Not Detected (Not Detect); Respiratory Syncytial Virus Detected (Not Detect); SARS- CoV-2 Not Detected (Not Detecte)
[2022-02-12] MEDS: HYDROCODONE/ACET 5/325 TABLET 2 TAB PO (11:55)
== END 2022-02-12 14:00 | DRG 871 ==
LOC: ED 21:23 → ICU 21:25
PROVIDERS: Admitting Provider Internal Medicine; Emergency Provider Emergency Medicine; Family Provider Family Medicine; PCP Family Medicine; Referring Provider Emergency Medicine; Visit Provider Family Medicine
DX: A41.9 Sepsis, unspecified organism (principal); I50.31 Acute diastolic (congestive) heart failure; J18.9 Pneumonia, unspecified organism; R65.21 Severe sepsis with septic shock; N17.9 Acute kidney failure, unspecified; I13.0 Hypertensive heart and chronic kidney disease with heart failure and stage 1 through stage 4 chronic kidney disease, or unspecified chronic kidney disease; J44.0 Chronic obstructive pulmonary disease with (acute) lower respiratory infection; J44.1 Chronic obstructive pulmonary disease with (acute) exacerbation; F10.239 Alcohol dependence with withdrawal, unspecified; G93.40 Encephalopathy, unspecified; F17.210 Nicotine dependence, cigarettes, uncomplicated; E66.01 Morbid (severe) obesity due to excess calories; Z68.37 Body mass index [BMI] 37.0-37.9, adult; Z99.81 Dependence on supplemental oxygen; N18.30 Chronic kidney disease, stage 3 unspecified; I25.10 Atherosclerotic heart disease of native coronary artery without angina pectoris; E78.5 Hyperlipidemia, unspecified; I35.0 Nonrheumatic aortic (valve) stenosis; B96.20 Unspecified Escherichia coli [E. coli] as the cause of diseases classified elsewhere
CPT/HCPCS: 0241U; 36415; 71045; 80048; 80053; 81001; 83605; 83735; 83880; 84145; 84484; 85007; 85025; 85610; 87040; 87070; 87077; 87086; 87186; 87205; 87493; 87633; 87797; 93005; 93306; 94640; 94762; 96365; 96366; 96368; 97162; 99223; 99232; 99233; 99238; 99285; 99291; 99292; J0696; J1630; J1650; J1940; J2060; J2543; J2930; J3475; J7613

== ENCOUNTER 2022-03-12 05:55 | Inpatient (IN) | payer MEDICARE, OTHER, SELFPAY ==
[2022-02-06 22:05] VITALS: BMI 39.0
[2022-03-12] VITALS (170 sets, daily range): BP systolic 64–144; BP diastolic 28–95; PULSE 62–98; RESP 11–46; TEMP 34.9–37.3; O2SAT 70–100; BMI 41.1
[2022-03-12 06:14] LABS: Add Manual Diff / Slide Review NO; Basophils Absolute Auto 100 /uL (0-100); Basophils Percent Auto 0.2 % (0-2); Eosinophils Absolute Auto 400 /uL (0-450); Eosinophils Percent Auto 1.6 % (2-4); Hematocrit 30.5 % (41-53); Hemoglobin 9.9 g/dL (13.5-17.5); Lymphocytes Absolute Auto 1500 /uL (1100-4500); Lymphocytes Percent Auto 6.6 % (25-40); Mean Corpuscular HGB Conc 32.5 % (30-36); Mean Corpuscular Hemoglobin 30.4 PG (26-34); Mean Corpuscular Volume 93.6 fL (80-100); Monocytes Absolute Auto 1800 /uL (0-900); Monocytes Percent Auto 7.9 % (3-14); Neutrophils Absolute Auto 19100 /uL (1500-7000); Neutrophils Percent Auto 83.7 % (50-75); Platelet Count 177 X10^3/uL (150-400); Red Blood Cell Count 3.26 X10^6/uL (4.5-5.9); Red Cell Distribution Width 14.3 % (11.6-14.8); White Blood Cell Count 22.9 X10^3/uL (4.5-11.0)
--- NOTE | 2022-03-12 06:16 | ED_ITS ---
HPI - General Adult <Davin Mitchell DO - Last Filed: 03/12/22 18:01> General Chief complaint: Fall Stated complaint: fall Time Seen by Provider: 03/12/22 06:04 Source: patient and EMS Mode of arrival: EMS Limitations: no limitations History of Present Illness HPI narrative: Patient is an 86-year-old male who is brought in by EMS for evaluation of weakness and hypotension. Patient states that this morning he got up to get out of bed to go use the restroom when he rolled out of bed and fell onto the floor. He sustained no injuries from this. He states he tried for a while to get up on his own but he could not so he contacted EMS. Initially this was just for a lift assist however when they arrived patient was hypotensive. EMS reports that when he was sitting up he became lightheaded need passed out. Received approximately 600 cc of fluid prior to arrival. Here in the emergency department the patient has no specific complaints. He is on oxygen has a history of COPD and uses oxygen at night occasionally. He denies chest pain. He did soil himself because he could not go to the bathroom. He denies any injury from the fall. No arm or leg pain. No neck pain. No abdominal pain. No nausea vomiting. He is having back pain but that is not new. He has chronic back pain. Related Data Home Medications Medication Instructions Recorded Confirmed aspirin 81 mg chewable tablet 81 mg PO DAILY 12/17/17 03/12/22 atorvastatin 20 mg tablet 20 mg PO BEDTIME 02/11/22 03/12/22 fluticasone 250 mcg-salmeterol 50 1 inh inhalation BID 02/11/22 03/12/22 mcg/dose blistr powdr for inhalation lisinopril 40 mg tablet 40 mg PO BID 02/11/22 03/12/22 metoprolol tartrate 100 mg tablet 100 mg PO BID 02/11/22 03/12/22 Previous Rx's Medication Instructions Recorded albuterol sulfate 90 mcg/actuation 2 puff inhalation Q4H PRN 06/20/21 aerosol inhaler (Ventolin HFA) Shortness Of Breath #8.5 grams inhalational spacing device #1 ea 06/20/21 (BreatheRite MDI Spacer) gabapentin 300 mg capsule 300 mg PO BEDTIME #30 caps 01/27/22 lidocaine 5 % topical patch 1 patch topical DAILY #15 ea 01/27/22 (Lidoderm) acetaminophen 325 mg tablet 650 mg PO Q6H PRN Fever/Mild Pain 02/11/22 (1-3) #30 tabs furosemide 40 mg tablet 40 mg PO DAILY #30 tabs 02/11/22 pantoprazole 40 mg tablet,delayed 40 mg PO 0700 #20 tabs 02/11/22 release prednisone 20 mg tablet 60 mg PO DAILY #20 tabs 02/11/22 hydrocodone 5 mg-acetaminophen 325 1 tab PO Q6H PRN pain #20 tabs 02/12/22 mg tablet Allergies Allergy/AdvReac Type Severity Reaction Status Date / Time No Known Drug Allergies Allergy Verified 01/27/22 09:34 Review of Systems <Davin Mitchell DO - Last Filed: 03/12/22 18:01> Review of Systems ROS Unobtainable: All systems reviewed & are unremarkable except as noted in HPI and below Patient History <Davin Mitchell DO - Last Filed: 03/12/22 18:01> Medical History Acute respiratory failure with hypoxia Chronic back pain (~1959) COPD (chronic obstructive pulmonary disease) Gout (~2011) History of urinary incontinence Lung cancer (~2007) Moderate aortic stenosis by prior echocardiogram Pancreatitis (~2005) Vision disorder Surgical History Anesthesia History of lung surgery (~03/2007) Family History Father Heart disease Grandmother Age: 82 Ovarian cancer, unspecified laterality Mother Diabetes mellitus Sister No problems noted. Social History marital status: household members: friend(s) Smoking Status: Current every day smoker alcohol intake: current substance use type: does not use Smoking Status: Current every day smoker alcohol intake frequency: 3 or more drinks per day Substance Use Type: does not use Exam <Davin Mitchell DO - Last Filed: 03/12/22 18:01> Initial Vital Signs Initial Vital Signs: Vital Signs Pulse Rate 66 03/12/22 06:09 Respiratory Rate 22 03/12/22 06:09 Pulse Oximetry 98 03/12/22 06:09 Const General: No acute distress and No ill appearing [facility] Head: normal to inspection Mouth: moist mucous membranes Resp Effort & Inspection: tachypneic Auscultation: clear to auscultation bilaterally Cardio Rate: regular rate Rhythm: regular rhythm GI Inspection: normal to inspection and non-distended Neuro General: patient alert, patient awake, patient oriented x3, moves all extremities and not confused Speech: speech normal Extrem General: normal to inspection and capillary refill normal Psych Appearance: grossly normal <Jagdish Bunn MD - Last Filed: 03/12/22 11:14> Initial Vital Signs Initial Vital Signs: Vital Signs Pulse Rate 66 03/12/22 06:09 Respiratory Rate 22 03/12/22 06:09 Pulse Oximetry 98 03/12/22 06:09 Course <Davin Mitchell DO - Last Filed: 03/12/22 18:01> Orders Ordered: ED Orders 03/12/22 10:51 XR chest for PICC 1V Stat 03/12/22 11:40 BMP [Basic Metabolic Panel] Stat BNP [NT-proBNP (BNP-Adult 18+)] Stat Troponin & CK Cardiac Panel Stat 03/12/22 14:48 Education, smoking cessation ONGOING RT Consult Eval and Treat NOW 03/13/22 05:00 XR chest 1V Routine Complete Blood Count AUTO DIFF Routine Comprehensive Metabolic Panel Routine Magnesium Routine NT-proBNP (BNP-Adult 18+) Routine Troponin I Routine Acetaminophen (Acetaminophen 325 Mg Tablet) 650 mg PO Q6H PRN PRN Reason: Fever/Mild Pain (1-3) Hydrocodone Bitart/Acetaminophen (Hydrocodone/Acet 5/325 Tablet) 1 tab PO Q4H PRN PRN Reason: Pain, Moderate (4-6) Albuterol/Ipratropium (Albuterol/Ipratropium 3 Ml Ampul) 3 ml INH RTBID MARTIN Atorvastatin Calcium (Atorvastatin 20 Mg Tablet) 20 mg PO BEDTIME [facility]IN Enoxaparin Sodium (Enoxaparin 30 Mg/0.3 Ml Syringe) 30 mg SUBCUT DAILY [facility] Last Admin: 03/12/22 15:17 Dose: 30 mg Documented By: PETROS Sodium Chloride (Normal Saline 0.9%) 1,000 mls @ 125 mls/hr IV BOLUS ONE Stop: 03/12/22 18:43 Last Infusion: 03/12/22 14:52 Dose: 125 mls/hr Documented By: Admin: 03/12/22 11:40 Dose: 125 mls/hr Documented By: TRISTAN Lactated Ringer's (Lactated Ringers) 1,000 mls @ 100 mls/hr IV CONT MARTIN Last Admin: 03/12/22 15:18 Dose: 100 mls/hr Documented By: PETROS Piperacillin Sod/Tazobactam (Sod 3.375 gm/ Sodium Chloride) 100 mls @ 25 mls/hr IV Q12H [facility] Stop: 03/17/22 14:47 Last Admin: 03/12/22 15:17 Dose: 25 mls/hr Documented By: PETROS NOREPINEPHRINE BITARTRATE/D5W (Levophed) 4 mg in 250 mls @ 30 mls/hr IV TITRATE [facility]; Protocol Last Admin: 03/12/22 16:44 Dose: 6 mcg/min, 22.5 mls/hr Documented By: PETROS Lorazepam (Lorazepam 0.5 Mg Tablet) 0.5 mg PO TID [facility] Naloxone HCl (Naloxone 0.4 Mg/Ml Vial) 0.2 mg IV Q2MIN PRN PRN Reason: Opiate Reversal Oxycodone HCl (Oxycodone Ir 10 Mg Tablet) 5 mg PO Q3H PRN PRN Reason: Pain, Severe (7-10) Pantoprazole Sodium (Pantoprazole Dr 40 Mg Tablet) 40 mg PO 0700 [facility] Discontinued Medications Hydrocodone Bitart/Acetaminophen (Hydrocodone/Acet 5/325 Tablet) 1 tab PO NOW ONE Stop: 03/12/22 06:54 Last Admin: 03/12/22 07:04 Dose: 1 tab Documented By: KLEBER Sodium Chloride 9 ml/ (Epinephrine HCl 0.1 mg) 0 ml IV NOW ONE Stop: 03/12/22 07:47 Last Admin: 03/12/22 07:47 Dose: 1 ml Documented By: TRISTAN Sodium Chloride 9 ml/ (Epinephrine HCl 0.1 mg) 0 ml IV NOW ONE Stop: 03/12/22 08:03 Last Admin: 03/12/22 08:02 Dose: 1 ml Documented By: TRISTAN Ceftriaxone Sodium 1,000 mg/ (Sodium Chloride) 100 mls @ 200 mls/hr IV NOW ONE Stop: 03/12/22 06:43 Last Infusion: 03/12/22 07:30 Dose: 0 mls/hr Documented By: Admin: 03/12/22 06:59 Dose: 200 mls/hr Documented By: KLEBER Sodium Chloride (Normal Saline 0.9%) 1,000 mls @ 1,000 mls/hr IV BOLUS PRN PRN Reason: Fluid replacement Last Infusion: 03/12/22 08:55 Dose: 0 mls/hr Documented By: Admin: 03/12/22 07:59 Dose: 1,000 mls/hr Documented By: TRISTAN Levofloxacin (Levaquin) 750 mg in 150 mls @ 100 mls/hr IV NOW ONE Stop: 03/12/22 09:11 Last Admin: 03/12/22 08:05 Dose: Not Given Documented By: TRISTAN Vancomycin HCl/Dextrose (Vancomycin) 2,000 mg in 400 mls @ 200 mls/hr IV NOW ONE Stop: 03/12/22 09:42 Last Infusion: 03/12/22 10:00 Dose: 0 mls/hr Documented By: Admin: 03/12/22 08:00 Dose: 200 mls/hr Documented By: TRISTAN Sodium Chloride (Normal Saline 0.9%) 1,000 mls @ 1,000 mls/hr IV BOLUS ONE Stop: 03/12/22 08:41 Last Infusion: 03/12/22 08:40 Dose: 0 mls/hr Documented By: Admin: 03/12/22 07:40 Dose: 1,000 mls/hr Documented By: TRISTAN Levofloxacin (Levaquin) 500 mg in 100 mls @ 100 mls/hr IV NOW ONE Stop: 03/12/22 08:59 Last Infusion: 03/12/22 09:15 Dose: 0 mls/hr Documented By: Admin: 03/12/22 08:15 Dose: 100 mls/hr Documented By: TRISTAN NOREPINEPHRINE BITARTRATE/D5W (Levophed) 4 mg in 250 mls @ 30 mls/hr IV TITRATE [facility]; Protocol Last Titration: 03/12/22 14:50 Dose: 6 mcg/min, 22.5 mls/hr Documented By: Titration: 03/12/22 13:30 Dose: 6 mcg/min, 22.5 mls/hr Documented By: Titration: 03/12/22 09:55 Dose: 4 mcg/min, 15 mls/hr Documented By: Titration: 03/12/22 09:28 Dose: 12 mcg/min, 45 mls/hr Documented By: Admin: 03/12/22 08:09 Dose: 8 mcg/min, 30 mls/hr Documented By: TRISTAN Vital Signs Vital signs: Vital Signs - 8 hr 03/12/22 10:05 03/12/22 10:10 03/12/22 10:15 Temperature 98.2 F 98.2 F 98.2 F Pulse Rate 83 81 80 Respiratory Rate 17 22 24 Blood Pressure Pulse Oximetry 96 96 96 Oxygen Delivery Method Oxygen Flow Rate 03/12/22 10:20 03/12/22 10:21 03/12/22 10:21 Temperature 98.2 F 98.2 F Pulse Rate 80 80 Respiratory Rate 18 18 Blood Pressure 144/58 H Pulse Oximetry 96 97 Oxygen Delivery Method Oxygen Flow Rate 03/12/22 10:25 03/12/22 10:30 03/12/22 10:30 Temperature 98.2 F 98.2 F Pulse Rate 80 80 Respiratory Rate 18 21 Blood Pressure 128/87 Pulse Oximetry 96 95 Oxygen Delivery Method Oxygen Flow Rate 03/12/22 10:35 03/12/22 10:36 03/12/22 10:36 Temperature 98.2 F 98.2 F Pulse Rate 80 79 Respiratory Rate 13 16 Blood Pressure 85/45 L Pulse Oximetry 97 97 Oxygen Delivery Method Oxygen Flow Rate 03/12/22 10:40 03/12/22 10:40 03/12/22 10:45 Temperature 98.2 F 98.2 F Pulse Rate 78 78 Respiratory Rate 16 17 Blood Pressure 64/28 L Pulse Oximetry 97 97 Oxygen Delivery Method Oxygen Flow Rate 03/12/22 10:47 03/12/22 10:47 03/12/22 10:50 Temperature 98.2 F Pulse Rate 77 Respiratory Rate 15 Blood Pressure 106/58 L 115/60 Pulse Oximetry 96 Oxygen Delivery Method Oxygen Flow Rate 03/12/22 10:50 03/12/22 10:55 03/12/22 10:55 Temperature 98.2 F 98.2 F Pulse Rate 77 79 Respiratory Rate 17 19 Blood Pressure 112/58 L Pulse Oximetry 96 96 Oxygen Delivery Method Oxygen Flow Rate 03/12/22 11:00 03/12/22 11:00 03/12/22 11:05 Temperature 98.4 F Pulse Rate 80 Respiratory Rate 18 Blood Pressure 104/56 L 109/59 L Pulse Oximetry 95 Oxygen Delivery Method Nasal Cannula Oxygen Flow Rate 4 03/12/22 11:05 03/12/22 11:10 03/12/22 11:10 Temperature 98.2 F 98.1 F Pulse Rate 78 81 Respiratory Rate 20 23 Blood Pressure 105/64 Pulse Oximetry 95 Oxygen Delivery Method Oxygen Flow Rate 03/12/22 11:15 03/12/22 11:15 03/12/22 11:20 Temperature 98.4 F 98.4 F Pulse Rate 81 79 Respiratory Rate 30 H 19 Blood Pressure 96/51 L Pulse Oximetry 96 Oxygen Delivery Method Oxygen Flow Rate 03/12/22 11:21 03/12/22 11:21 03/12/22 11:25 Temperature 98.4 F Pulse Rate 80 Respiratory Rate 21 Blood Pressure 96/52 L 111/59 L Pulse Oximetry 96 Oxygen Delivery Method Oxygen Flow Rate 03/12/22 11:25 03/12/22 11:30 03/12/22 11:33 Temperature 98.4 F 98.4 F Pulse Rate 80 81 Respiratory Rate 17 17 Blood Pressure 126/50 L Pulse Oximetry 96 96 Oxygen Delivery Method Oxygen Flow Rate 03/12/22 11:33 03/12/22 11:35 03/12/22 11:35 Temperature 98.4 F 98.4 F Pulse Rate 81 82 Respiratory Rate 20 19 Blood Pressure 111/55 L Pulse Oximetry 95 95 Oxygen Delivery Method Oxygen Flow Rate 03/12/22 11:40 03/12/22 11:40 03/12/22 11:45 Temperature 98.6 F Pulse Rate 81 Respiratory Rate 19 Blood Pressure 109/65 111/56 L Pulse Oximetry 94 Oxygen Delivery Method Oxygen Flow Rate 03/12/22 11:45 03/12/22 11:50 03/12/22 11:50 Temperature 98.6 F 98.6 F Pulse Rate 82 81 Respiratory Rate 21 25 H Blood Pressure 105/52 L Pulse Oximetry 96 97 Oxygen Delivery Method Oxygen Flow Rate 03/12/22 11:55 03/12/22 11:55 03/12/22 12:00 Temperature 98.6 F 98.6 F Pulse Rate 82 81 Respiratory Rate 17 21 Blood Pressure 107/58 L Pulse Oximetry 96 96 Oxygen Delivery Method Oxygen Flow Rate 03/12/22 12:01 03/12/22 12:01 03/12/22 12:05 Temperature 98.6 F 98.6 F Pulse Rate 81 83 Respiratory Rate 22 24 Blood Pressure 110/56 L Pulse Oximetry 96 Oxygen Delivery Method Oxygen Flow Rate 03/12/22 12:06 03/12/22 12:06 03/12/22 12:10 Temperature 98.6 F 98.6 F Pulse Rate 82 82 Respiratory Rate 17 17 Blood Pressure 86/48 L Pulse Oximetry 98 Oxygen Delivery Method Oxygen Flow Rate 03/12/22 12:11 03/12/22 12:11 03/12/22 12:15 Temperature 98.6 F 98.6 F Pulse Rate 81 84 Respiratory Rate 18 19 Blood Pressure 122/78 Pulse Oximetry 97 97 Oxygen Delivery Method Oxygen Flow Rate 03/12/22 12:16 03/12/22 12:16 03/12/22 12:20 Temperature 98.6 F Pulse Rate 84 Respiratory Rate 21 Blood Pressure 125/58 L 110/55 L Pulse Oximetry 96 Oxygen Delivery Method Nasal Cannula Oxygen Flow Rate 2 03/12/22 12:20 03/12/22 12:25 03/12/22 12:25 Temperature 98.6 F 98.6 F Pulse Rate 86 87 Respiratory Rate 18 20 Blood Pressure 114/55 L Pulse Oximetry 95 95 Oxygen Delivery Method Oxygen Flow Rate 03/12/22 12:30 03/12/22 12:30 03/12/22 12:35 Temperature 98.6 F 98.8 F Pulse Rate 87 85 Respiratory Rate 25 H 18 Blood Pressure 126/58 L Pulse Oximetry 96 96 Oxygen Delivery Method Oxygen Flow Rate 03/12/22 12:36 03/12/22 12:36 03/12/22 12:40 Temperature 98.8 F Pulse Rate 85 Respiratory Rate 19 Blood Pressure 137/60 142/66 H Pulse Oximetry 96 Oxygen Delivery Method Oxygen Flow Rate 03/12/22 12:40 03/12/22 12:45 03/12/22 12:45 Temperature 98.8 F 98.8 F Pulse Rate 86 84 Respiratory Rate 22 19 Blood Pressure 143/95 H Pulse Oximetry 97 95 Oxygen Delivery Method Nasal Cannula Oxygen Flow Rate 2 03/12/22 12:50 03/12/22 12:51 03/12/22 12:51 Temperature 98.8 F 98.8 F Pulse Rate 83 83 Respiratory Rate 24 22 Blood Pressure 140/81 Pulse Oximetry 93 96 Oxygen Delivery Method Oxygen Flow Rate 03/12/22 12:55 03/12/22 12:56 03/12/22 12:56 Temperature 99.0 F 99.0 F Pulse Rate 82 82 Respiratory Rate 25 H 21 Blood Pressure 125/69 Pulse Oximetry 96 95 Oxygen Delivery Method Oxygen Flow Rate 03/12/22 13:00 03/12/22 13:05 03/12/22 13:10 Temperature 99.0 F 99.0 F 99.0 F Pulse Rate 81 81 80 Respiratory Rate 18 17 15 Blood Pressure Pulse Oximetry 96 Oxygen Delivery Method Oxygen Flow Rate 03/12/22 13:15 03/12/22 13:20 03/12/22 13:23 Temperature 99.0 F 99.0 F Pulse Rate 80 80 Respiratory Rate 23 18 Blood Pressure 97/70 Pulse Oximetry Oxygen Delivery Method Oxygen Flow Rate 03/12/22 13:23 03/12/22 13:25 03/12/22 13:25 Temperature 99.1 F 99.0 F Pulse Rate 81 81 Respiratory Rate 46 H 21 Blood Pressure 88/70 L Pulse Oximetry 83 L Oxygen Delivery Method Oxygen Flow Rate 03/12/22 13:30 03/12/22 13:30 03/12/22 13:35 Temperature 99.1 F Pulse Rate 81 Respiratory Rate 17 Blood Pressure 85/60 L 92/53 L Pulse Oximetry 95 Oxygen Delivery Method Oxygen Flow Rate 03/12/22 13:35 03/12/22 13:40 03/12/22 13:41 Temperature 99.1 F 99.1 F Pulse Rate 81 81 Respiratory Rate 24 27 H Blood Pressure 104/54 L Pulse Oximetry 95 94 Oxygen Delivery Method Oxygen Flow Rate 03/12/22 13:41 03/12/22 13:45 03/12/22 13:46 Temperature 99.1 F 99.1 F Pulse Rate 81 82 Respiratory Rate 20 18 Blood Pressure 101/50 L Pulse Oximetry 94 93 Oxygen Delivery Method Oxygen Flow Rate 03/12/22 13:46 03/12/22 13:50 03/12/22 13:51 Temperature 99.1 F 99.1 F 99.1 F Pulse Rate 82 81 81 Respiratory Rate 21 30 H 22 Blood Pressure Pulse Oximetry 95 94 97 Oxygen Delivery Method Oxygen Flow Rate 03/12/22 13:51 03/12/22 13:55 03/12/22 13:55 Temperature 99.1 F Pulse Rate 81 Respiratory Rate 26 H Blood Pressure 100/54 L 92/65 Pulse Oximetry 95 Oxygen Delivery Method Nasal Cannula Oxygen Flow Rate 2 03/12/22 14:00 03/12/22 14:00 03/12/22 14:05 Temperature 99.1 F 99.0 F Pulse Rate 81 80 Respiratory Rate 21 19 Blood Pressure 92/56 L Pulse Oximetry 96 96 Oxygen Delivery Method Oxygen Flow Rate 03/12/22 14:06 03/12/22 14:06 03/12/22 14:10 Temperature 99.0 F Pulse Rate 80 Respiratory Rate 25 H Blood Pressure 114/56 L 109/57 L Pulse Oximetry 95 Oxygen Delivery Method Nasal Cannula Oxygen Flow Rate 2 03/12/22 14:10 03/12/22 14:15 03/12/22 14:15 Temperature 99.0 F 99.0 F Pulse Rate 80 80 Respiratory Rate 20 25 H Blood Pressure 119/53 L Pulse Oximetry 97 96 Oxygen Delivery Method Oxygen Flow Rate <Jagdish Bunn MD - Last Filed: 03/12/22 11:14> Course Course Narrative: Care was assumed from Dr. Mitchell at change of shift. This 86-year-old gentleman has a history of COPD, CHF, and lung cancer. He required admission last month with respiratory failure. He had a fall last night. There was no obvious injury. It was discovered that it was hypotensive, systolic blood pressure 95. He arrived with 2 L of oxygen in place. He is had no fever, chills or cough. He denies chest pain. He is normal sinus rhythm, but systolic blood pressure is 60s to 70s. He was given Rocephin shortly after arrival. He also has chronic low back pain. Pain is recently increased. He has renal failure. He denies history of prostate disease. He is elevated WBC, as well as elevated lactic acid level. Chest x-ray affirmed CHF, but suggested bilateral parahilar infiltrates. CT showed COPD, as well as against suggested pneumonia. The previously known lung cancer is also noted. During his hospitalization 1 month ago echocardiogram was done, showing critical aortic stenosis. With a concern his low back pain, rectal exam was done. He had mild prostate discomfort. The CT showed no abdomen or pelvic abnormalities. Urine was eventually obtained was normal. In the meantime patient's antibiotics were changed to Levaquin and vancomycin. Medications took into consideration his recent hospitalization, as well as initial concern for a source as well as pulmonary source. It is noted, despite concerns of sepsis, he did not demonstrate tachycardia. His shock may be cardiac shock and/or septic shock. The situation was discussed with Dr. Davalos, on-call for Dr. Jennings, the patient's PCM. The patient is alert and oriented. He declared himself no CPR, DNI. 03/12/22 @11:40. Jennifer Bunn MD Orders Ordered: ED Orders 03/12/22 10:51 XR chest for PICC 1V Stat 03/12/22 11:40 BMP [Basic Metabolic Panel] Stat BNP [NT-proBNP (BNP-Adult 18+)] Stat Troponin & CK Cardiac Panel Stat 03/12/22 14:48 Education, smoking cessation ONGOING RT Consult Eval and Treat NOW 03/13/22 05:00 XR chest 1V Routine Complete Blood Count AUTO DIFF Routine Comprehensive Metabolic Panel Routine Magnesium Routine NT-proBNP (BNP-Adult 18+) Routine Troponin I Routine Acetaminophen (Acetaminophen 325 Mg Tablet) 650 mg PO Q6H PRN PRN Reason: Fever/Mild Pain (1-3) Hydrocodone Bitart/Acetaminophen (Hydrocodone/Acet 5/325 Tablet) 1 tab PO Q4H PRN PRN Reason: Pain, Moderate (4-6) Albuterol/Ipratropium (Albuterol/Ipratropium 3 Ml Ampul) 3 ml INH RTBID [facility]ARTIN Atorvastatin Calcium (Atorvastatin 20 Mg Tablet) 20 mg PO BEDTIME [facility] Enoxaparin Sodium (Enoxaparin 30 Mg/0.3 Ml Syringe) 30 mg SUBCUT DAILY [facility] Last Admin: 03/12/22 15:17 Dose: 30 mg Documented By: PETROS Sodium Chloride (Normal Saline 0.9%) 1,000 mls @ 125 mls/hr IV BOLUS ONE Stop: 03/12/22 18:43 Last Infusion: 03/12/22 14:52 Dose: 125 mls/hr Documented By: Admin: 03/12/22 11:40 Dose: 125 mls/hr Documented By: KLS Lactated Ringer's (Lactated Ringers) 1,000 mls @ 100 mls/hr IV CONT [facility] Last Admin: 03/12/22 15:18 Dose: 100 mls/hr Documented By: PETROS Piperacillin Sod/Tazobactam (Sod 3.375 gm/ Sodium Chloride) 100 mls @ 25 mls/hr IV Q12H [facility] Stop: 03/17/22 14:47 Last Admin: 03/12/22 15:17 Dose: 25 mls/hr Documented By: PETROS NOREPINEPHRINE BITARTRATE/D5W (Levophed) 4 mg in 250 mls @ 30 mls/hr IV TITRATE [facility]; Protocol Last Admin: 03/12/22 16:44 Dose: 6 mcg/min, 22.5 mls/hr Documented By: PETROS Lorazepam (Lorazepam 0.5 Mg Tablet) 0.5 mg PO TID [facility] Naloxone HCl (Naloxone 0.4 Mg/Ml Vial) 0.2 mg IV Q2MIN PRN PRN Reason: Opiate Reversal Oxycodone HCl (Oxycodone Ir 10 Mg Tablet) 5 mg PO Q3H PRN PRN Reason: Pain, Severe (7-10) Pantoprazole Sodium (Pantoprazole Dr 40 Mg Tablet) 40 mg PO 0700 [facility] Discontinued Medications Hydrocodone Bitart/Acetaminophen (Hydrocodone/Acet 5/325 Tablet) 1 tab PO NOW ONE Stop: 03/12/22 06:54 Last Admin: 03/12/22 07:04 Dose: 1 tab Documented By: KLEBER Sodium Chloride 9 ml/ (Epinephrine HCl 0.1 mg) 0 ml IV NOW ONE Stop: 03/12/22 07:47 Last Admin: 03/12/22 07:47 Dose: 1 ml Documented By: TRISTAN Sodium Chloride 9 ml/ (Epinephrine HCl 0.1 mg) 0 ml IV NOW ONE Stop: 03/12/22 08:03 Last Admin: 03/12/22 08:02 Dose: 1 ml Documented By: TRISTAN Ceftriaxone Sodium 1,000 mg/ (Sodium Chloride) 100 mls @ 200 mls/hr IV NOW ONE Stop: 03/12/22 06:43 Last Infusion: 03/12/22 07:30 Dose: 0 mls/hr Documented By: Admin: 03/12/22 06:59 Dose: 200 mls/hr Documented By: KLEBER Sodium Chloride (Normal Saline 0.9%) 1,000 mls @ 1,000 mls/hr IV BOLUS PRN PRN Reason: Fluid replacement Last Infusion: 03/12/22 08:55 Dose: 0 mls/hr Documented By: Admin: 03/12/22 07:59 Dose: 1,000 mls/hr Documented By: TRISTAN Levofloxacin (Levaquin) 750 mg in 150 mls @ 100 mls/hr IV NOW ONE Stop: 03/12/22 09:11 Last Admin: 03/12/22 08:05 Dose: Not Given Documented By: TRISTAN Vancomycin HCl/Dextrose (Vancomycin) 2,000 mg in 400 mls @ 200 mls/hr IV NOW ONE Stop: 03/12/22 09:42 Last Infusion: 03/12/22 10:00 Dose: 0 mls/hr Documented By: Admin: 03/12/22 08:00 Dose: 200 mls/hr Documented By: TRISTAN Sodium Chloride (Normal Saline 0.9%) 1,000 mls @ 1,000 mls/hr IV BOLUS ONE Stop: 03/12/22 08:41 Last Infusion: 03/12/22 08:40 Dose: 0 mls/hr Documented By: Admin: 03/12/22 07:40 Dose: 1,000 mls/hr Documented By: TRISTAN Levofloxacin (Levaquin) 500 mg in 100 mls @ 100 mls/hr IV NOW ONE Stop: 03/12/22 08:59 Last Infusion: 03/12/22 09:15 Dose: 0 mls/hr Documented By: Admin: 03/12/22 08:15 Dose: 100 mls/hr Documented By: TRISTAN NOREPINEPHRINE BITARTRATE/D5W (Levophed) 4 mg in 250 mls @ 30 mls/hr IV TITRATE [facility]; Protocol Last Titration: 03/12/22 14:50 Dose: 6 mcg/min, 22.5 mls/hr Documented By: Titration: 03/12/22 13:30 Dose: 6 mcg/min, 22.5 mls/hr Documented By: Titration: 03/12/22 09:55 Dose: 4 mcg/min, 15 mls/hr Documented By: Titration: 03/12/22 09:28 Dose: 12 mcg/min, 45 mls/hr Documented By: Admin: 03/12/22 08:09 Dose: 8 mcg/min, 30 mls/hr Documented By: TRISTAN Vital Signs Vital signs: Vital Signs - 8 hr 03/12/22 10:05 03/12/22 10:10 03/12/22 10:15 Temperature 98.2 F 98.2 F 98.2 F Pulse Rate 83 81 80 Respiratory Rate 17 22 24 Blood Pressure Pulse Oximetry 96 96 96 Oxygen Delivery Method Oxygen Flow Rate 03/12/22 10:20 03/12/22 10:21 03/12/22 10:21 Temperature 98.2 F 98.2 F Pulse Rate 80 80 Respiratory Rate 18 18 Blood Pressure 144/58 H Pulse Oximetry 96 97 Oxygen Delivery Method Oxygen Flow Rate 03/12/22 10:25 03/12/22 10:30 03/12/22 10:30 Temperature 98.2 F 98.2 F Pulse Rate 80 80 Respiratory Rate 18 21 Blood Pressure 128/87 Pulse Oximetry 96 95 Oxygen Delivery Method Oxygen Flow Rate 03/12/22 10:35 03/12/22 10:36 03/12/22 10:36 Temperature 98.2 F 98.2 F Pulse Rate 80 79 Respiratory Rate 13 16 Blood Pressure 85/45 L Pulse Oximetry 97 97 Oxygen Delivery Method Oxygen Flow Rate 03/12/22 10:40 03/12/22 10:40 03/12/22 10:45 Temperature 98.2 F 98.2 F Pulse Rate 78 78 Respiratory Rate 16 17 Blood Pressure 64/28 L Pulse Oximetry 97 97 Oxygen Delivery Method Oxygen Flow Rate 03/12/22 10:47 03/12/22 10:47 03/12/22 10:50 Temperature 98.2 F Pulse Rate 77 Respiratory Rate 15 Blood Pressure 106/58 L 115/60 Pulse Oximetry 96 Oxygen Delivery Method Oxygen Flow Rate 03/12/22 10:50 03/12/22 10:55 03/12/22 10:55 Temperature 98.2 F 98.2 F Pulse Rate 77 79 Respiratory Rate 17 19 Blood Pressure 112/58 L Pulse Oximetry 96 96 Oxygen Delivery Method Oxygen Flow Rate 03/12/22 11:00 03/12/22 11:00 03/12/22 11:05 Temperature 98.4 F Pulse Rate 80 Respiratory Rate 18 Blood Pressure 104/56 L 109/59 L Pulse Oximetry 95 Oxygen Delivery Method Nasal Cannula Oxygen Flow Rate 4 03/12/22 11:05 03/12/22 11:10 03/12/22 11:10 Temperature 98.2 F 98.1 F Pulse Rate 78 81 Respiratory Rate 20 23 Blood Pressure 105/64 Pulse Oximetry 95 Oxygen Delivery Method Oxygen Flow Rate 03/12/22 11:15 03/12/22 11:15 03/12/22 11:20 Temperature 98.4 F 98.4 F Pulse Rate 81 79 Respiratory Rate 30 H 19 Blood Pressure 96/51 L Pulse Oximetry 96 Oxygen Delivery Method Oxygen Flow Rate 03/12/22 11:21 03/12/22 11:21 03/12/22 11:25 Temperature 98.4 F Pulse Rate 80 Respiratory Rate 21 Blood Pressure 96/52 L 111/59 L Pulse Oximetry 96 Oxygen Delivery Method Oxygen Flow Rate 03/12/22 11:25 03/12/22 11:30 03/12/22 11:33 Temperature 98.4 F 98.4 F Pulse Rate 80 81 Respiratory Rate 17 17 Blood Pressure 126/50 L Pulse Oximetry 96 96 Oxygen Delivery Method Oxygen Flow Rate 03/12/22 11:33 03/12/22 11:35 03/12/22 11:35 Temperature 98.4 F 98.4 F Pulse Rate 81 82 Respiratory Rate 20 19 Blood Pressure 111/55 L Pulse Oximetry 95 95 Oxygen Delivery Method Oxygen Flow Rate 03/12/22 11:40 03/12/22 11:40 03/12/22 11:45 Temperature 98.6 F Pulse Rate 81 Respiratory Rate 19 Blood Pressure 109/65 111/56 L Pulse Oximetry 94 Oxygen Delivery Method Oxygen Flow Rate 03/12/22 11:45 03/12/22 11:50 03/12/22 11:50 Temperature 98.6 F 98.6 F Pulse Rate 82 81 Respiratory Rate 21 25 H Blood Pressure 105/52 L Pulse Oximetry 96 97 Oxygen Delivery Method Oxygen Flow Rate 03/12/22 11:55 03/12/22 11:55 03/12/22 12:00 Temperature 98.6 F 98.6 F Pulse Rate 82 81 Respiratory Rate 17 21 Blood Pressure 107/58 L Pulse Oximetry 96 96 Oxygen Delivery Method Oxygen Flow Rate 03/12/22 12:01 03/12/22 12:01 03/12/22 12:05 Temperature 98.6 F 98.6 F Pulse Rate 81 83 Respiratory Rate 22 24 Blood Pressure 110/56 L Pulse Oximetry 96 Oxygen Delivery Method Oxygen Flow Rate 03/12/22 12:06 03/12/22 12:06 03/12/22 12:10 Temperature 98.6 F 98.6 F Pulse Rate 82 82 Respiratory Rate 17 17 Blood Pressure 86/48 L Pulse Oximetry 98 Oxygen Delivery Method Oxygen Flow Rate 03/12/22 12:11 03/12/22 12:11 03/12/22 12:15 Temperature 98.6 F 98.6 F Pulse Rate 81 84 Respiratory Rate 18 19 Blood Pressure 122/78 Pulse Oximetry 97 97 Oxygen Delivery Method Oxygen Flow Rate 03/12/22 12:16 03/12/22 12:16 03/12/22 12:20 Temperature 98.6 F Pulse Rate 84 Respiratory Rate 21 Blood Pressure 125/58 L 110/55 L Pulse Oximetry 96 Oxygen Delivery Method Nasal Cannula Oxygen Flow Rate 2 03/12/22 12:20 03/12/22 12:25 03/12/22 12:25 Temperature 98.6 F 98.6 F Pulse Rate 86 87 Respiratory Rate 18 20 Blood Pressure 114/55 L Pulse Oximetry 95 95 Oxygen Delivery Method Oxygen Flow Rate 03/12/22 12:30 03/12/22 12:30 03/12/22 12:35 Temperature 98.6 F 98.8 F Pulse Rate 87 85 Respiratory Rate 25 H 18 Blood Pressure 126/58 L Pulse Oximetry 96 96 Oxygen Delivery Method Oxygen Flow Rate 03/12/22 12:36 03/12/22 12:36 03/12/22 12:40 Temperature 98.8 F Pulse Rate 85 Respiratory Rate 19 Blood Pressure 137/60 142/66 H Pulse Oximetry 96 Oxygen Delivery Method Oxygen Flow Rate 03/12/22 12:40 03/12/22 12:45 03/12/22 12:45 Temperature 98.8 F 98.8 F Pulse Rate 86 84 Respiratory Rate 22 19 Blood Pressure 143/95 H Pulse Oximetry 97 95 Oxygen Delivery Method Nasal Cannula Oxygen Flow Rate 2 03/12/22 12:50 03/12/22 12:51 03/12/22 12:51 Temperature 98.8 F 98.8 F Pulse Rate 83 83 Respiratory Rate 24 22 Blood Pressure 140/81 Pulse Oximetry 93 96 Oxygen Delivery Method Oxygen Flow Rate 03/12/22 12:55 03/12/22 12:56 03/12/22 12:56 Temperature 99.0 F 99.0 F Pulse Rate 82 82 Respiratory Rate 25 H 21 Blood Pressure 125/69 Pulse Oximetry 96 95 Oxygen Delivery Method Oxygen Flow Rate 03/12/22 13:00 03/12/22 13:05 03/12/22 13:10 Temperature 99.0 F 99.0 F 99.0 F Pulse Rate 81 81 80 Respiratory Rate 18 17 15 Blood Pressure Pulse Oximetry 96 Oxygen Delivery Method Oxygen Flow Rate 03/12/22 13:15 03/12/22 13:20 03/12/22 13:23 Temperature 99.0 F 99.0 F Pulse Rate 80 80 Respiratory Rate 23 18 Blood Pressure 97/70 Pulse Oximetry Oxygen Delivery Method Oxygen Flow Rate 03/12/22 13:23 03/12/22 13:25 03/12/22 13:25 Temperature 99.1 F 99.0 F Pulse Rate 81 81 Respiratory Rate 46 H 21 Blood Pressure 88/70 L Pulse Oximetry 83 L Oxygen Delivery Method Oxygen Flow Rate 03/12/22 13:30 03/12/22 13:30 03/12/22 13:35 Temperature 99.1 F Pulse Rate 81 Respiratory Rate 17 Blood Pressure 85/60 L 92/53 L Pulse Oximetry 95 Oxygen Delivery Method Oxygen Flow Rate 03/12/22 13:35 03/12/22 13:40 03/12/22 13:41 Temperature 99.1 F 99.1 F Pulse Rate 81 81 Respiratory Rate 24 27 H Blood Pressure 104/54 L Pulse Oximetry 95 94 Oxygen Delivery Method Oxygen Flow Rate 03/12/22 13:41 03/12/22 13:45 03/12/22 13:46 Temperature 99.1 F 99.1 F Pulse Rate 81 82 Respiratory Rate 20 18 Blood Pressure 101/50 L Pulse Oximetry 94 93 Oxygen Delivery Method Oxygen Flow Rate 03/12/22 13:46 03/12/22 13:50 03/12/22 13:51 Temperature 99.1 F 99.1 F 99.1 F Pulse Rate 82 81 81 Respiratory Rate 21 30 H 22 Blood Pressure Pulse Oximetry 95 94 97 Oxygen Delivery Method Oxygen Flow Rate 03/12/22 13:51 03/12/22 13:55 03/12/22 13:55 Temperature 99.1 F Pulse Rate 81 Respiratory Rate 26 H Blood Pressure 100/54 L 92/65 Pulse Oximetry 95 Oxygen Delivery Method Nasal Cannula Oxygen Flow Rate 2 03/12/22 14:00 03/12/22 14:00 03/12/22 14:05 Temperature 99.1 F 99.0 F Pulse Rate 81 80 Respiratory Rate 21 19 Blood Pressure 92/56 L Pulse Oximetry 96 96 Oxygen Delivery Method Oxygen Flow Rate 03/12/22 14:06 03/12/22 14:06 03/12/22 14:10 Temperature 99.0 F Pulse Rate 80 Respiratory Rate 25 H Blood Pressure 114/56 L 109/57 L Pulse Oximetry 95 Oxygen Delivery Method Nasal Cannula Oxygen Flow Rate 2 03/12/22 14:10 03/12/22 14:15 03/12/22 14:15 Temperature 99.0 F 99.0 F Pulse Rate 80 80 Respiratory Rate 20 25 H Blood Pressure 119/53 L Pulse Oximetry 97 96 Oxygen Delivery Method Oxygen Flow Rate Medical Decision Making <Davni Mitchell DO - Last Filed: 03/12/22 18:01> Lab Data Result diagrams: 03/12/22 05:55 03/12/22 11:40 Labs: Lab Results 03/12/22 03/12/22 03/12/22 Range/Units 02:50 02:50 05:55 WBC 22.9 H (4.5-11.0) X10^3/uL RBC 3.26 L (4.5-5.9) X10^6/uL Hgb 9.9 L (13.5-17.5) g/dL Hct 30.5 L (41-53) % MCV 93.6 (80-100) fL MCH 30.4 (26-34) PG MCHC 32.5 (30-36) % RDW 14.3 (11.6-14.8) % Plt Count 177 (150-400) X10^3/uL Neut % (Auto) 83.7 H (50-75) % Lymph % (Auto) 6.6 L (25-40) % [place] % (Auto) 7.9 (3-14) % Eos % (Auto) 1.6 L (2-4) % Baso % (Auto) 0.2 (0-2) % Neut # (Auto) 23363 H (0391-5155) /uL Lymph # (Auto) 1500 (4685-9415) /uL [place] # (Auto) 1800 H (0-900) /uL Eos # (Auto) 400 (0-450) /uL Baso # (Auto) 100 (0-100) /uL Sodium (137-145) mmol/L Potassium (3.4-5.1) mmol/L Chloride (98-107) mmol/L Carbon Dioxide (22-32) mmol/L BUN (9-20) mg/dL Creatinine (0.66-1.25) mg/dL Estimated GFR (>60) mL/min BUN/Creatinine Ratio (6-22) Glucose (80-110) mg/dL Lactate (0.7-2.1) mmol/L Calcium (8.4-10.2) mg/dL Total Bilirubin (0.2-1.3) mg/dL AST (17-59) IU/L ALT (<50) IU/L Alkaline Phosphatase (38-126) U/L Total Creatine Kinase (55-170) U/L CK-MB (CK-2) (<2.37) ng/mL CK-MB (CK-2) Rel Index (1.5-5.0) % Troponin I (0.01-0.034) ng/mL NT-Pro-B Natriuret Pep (<450) pg/mL Total Protein (6.3-8.2) g/dL Albumin (3.5-5.0) g/dL Globulin (1.7-4.1) g/dL Albumin/Globulin Ratio (1.0-2.8) Lipase (23-300) U/L Procalcitonin (<0.5) ng/mL Urine Color Yellow Urine Appearance Clear Urine pH 5.0 (4.5-8.0) Ur Specific [place] >=1.030 H (1.000-1.035) Urine Protein 1+ H (Negative) Urine Glucose (UA) Trace H (Negative) g/dL Urine Ketones Negative (NEGATIVE) Urine Occult Blood Negative (Negative) Urine Nitrate Negative (Negative) Urine Bilirubin Negative (NEGATIVE) Urine Urobilinogen 0.2 (0.2) E.U./dL Ur Leukocyte Esterase Negative (NEGATIVE) Urine RBC None seen (0-5/HPF) Urine WBC None seen (0-5/HPF) Urine Bacteria None seen (None) Hyaline Casts 1-5/lpf (None) Ur Culture Indicated? Cult not indicated Ur Random Sodium 26 L (30-90) mmol/L Urine Creatinine 339.8 mg/dL Ethyl Alcohol ( - 10) mg/dL SARS-CoV-2 (PCR) (Negative) Influenza A (RT-PCR) (NEGATIVE) Influenza B (RT-PCR) (NEGATIVE) RSV (PCR) (Negative) 03/12/22 03/12/22 03/12/22 Range/Units 05:55 05:55 05:55 WBC (4.5-11.0) X10^3/uL RBC (4.5-5.9) X10^6/uL Hgb (13.5-17.5) g/dL Hct (41-53) % MCV (80-100) fL MCH (26-34) PG MCHC (30-36) % RDW (11.6-14.8) % Plt Count (150-400) X10^3/uL Neut % (Auto) (50-75) % Lymph % (Auto) (25-40) % [place] % (Auto) (3-14) % Eos % (Auto) (2-4) % Baso % (Auto) (0-2) % Neut # (Auto) (0262-1616) /uL Lymph # (Auto) (6847-7514) /uL [place] # (Auto) (0-900) /uL Eos # (Auto) (0-450) /uL Baso # (Auto) (0-100) /uL Sodium 138 (137-145) mmol/L Potassium 5.7 H (3.4-5.1) mmol/L Chloride 109 H (98-107) mmol/L Carbon Dioxide 15 L (22-32) mmol/L BUN 107 H* (9-20) mg/dL Creatinine 4.79 H (0.66-1.25) mg/dL Estimated GFR 11 L (>60) mL/min BUN/Creatinine Ratio 22.3 H (6-22) Glucose 94 (80-110) mg/dL Lactate (0.7-2.1) mmol/L Calcium 8.8 (8.4-10.2) mg/dL Total Bilirubin 0.6 (0.2-1.3) mg/dL AST 30 (17-59) IU/L ALT 20 (<50) IU/L Alkaline Phosphatase 45 (38-126) U/L Total Creatine Kinase 397 H (55-170) U/L CK-MB (CK-2) 14.00 H (<2.37) ng/mL CK-MB (CK-2) Rel Index 3.5 (1.5-5.0) % Troponin I 0.068 H (0.01-0.034) ng/mL NT-Pro-B Natriuret Pep 1610 H (<450) pg/mL Total Protein 6.0 L (6.3-8.2) g/dL Albumin 3.2 L (3.5-5.0) g/dL Globulin 2.8 (1.7-4.1) g/dL Albumin/Globulin Ratio 1.1 (1.0-2.8) Lipase 40 (23-300) U/L Procalcitonin (<0.5) ng/mL Urine Color Urine Appearance Urine pH (4.5-8.0) Ur Specific [place] (1.000-1.035) Urine Protein (Negative) Urine Glucose (UA) (Negative) g/dL Urine Ketones (NEGATIVE) Urine Occult Blood (Negative) Urine Nitrate (Negative) Urine Bilirubin (NEGATIVE) Urine Urobilinogen (0.2) E.U./dL Ur Leukocyte Esterase (NEGATIVE) Urine RBC (0-5/HPF) Urine WBC (0-5/HPF) Urine Bacteria (None) Hyaline Casts (None) Ur Culture Indicated? Ur Random Sodium (30-90) mmol/L Urine Creatinine mg/dL Ethyl Alcohol < 10 ( - 10) mg/dL SARS-CoV-2 (PCR) (Negative) Influenza A (RT-PCR) (NEGATIVE) Influenza B (RT-PCR) (NEGATIVE) RSV (PCR) (Negative) 03/12/22 03/12/22 03/12/22 Range/Units 05:55 05:55 08:26 WBC (4.5-11.0) X10^3/uL RBC (4.5-5.9) X10^6/uL Hgb (13.5-17.5) g/dL Hct (41-53) % MCV (80-100) fL MCH (26-34) PG MCHC (30-36) % RDW (11.6-14.8) % Plt Count (150-400) X10^3/uL Neut % (Auto) (50-75) % Lymph % (Auto) (25-40) % [place] % (Auto) (3-14) % Eos % (Auto) (2-4) % Baso % (Auto) (0-2) % Neut # (Auto) (6126-8273) /uL Lymph # (Auto) (8882-7615) /uL [place] # (Auto) (0-900) /uL Eos # (Auto) (0-450) /uL Baso # (Auto) (0-100) /uL Sodium (137-145) mmol/L Potassium (3.4-5.1) mmol/L Chloride (98-107) mmol/L Carbon Dioxide (22-32) mmol/L BUN (9-20) mg/dL Creatinine (0.66-1.25) mg/dL Estimated GFR (>60) mL/min BUN/Creatinine Ratio (6-22) Glucose (80-110) mg/dL Lactate 2.4 H (0.7-2.1) mmol/L Calcium (8.4-10.2) mg/dL Total Bilirubin (0.2-1.3) mg/dL AST (17-59) IU/L ALT (<50) IU/L Alkaline Phosphatase (38-126) U/L Total Creatine Kinase (55-170) U/L CK-MB (CK-2) (<2.37) ng/mL CK-MB (CK-2) Rel Index (1.5-5.0) % Troponin I (0.01-0.034) ng/mL NT-Pro-B Natriuret Pep (<450) pg/mL Total Protein (6.3-8.2) g/dL Albumin (3.5-5.0) g/dL Globulin (1.7-4.1) g/dL Albumin/Globulin Ratio (1.0-2.8) Lipase (23-300) U/L Procalcitonin 0.87 H (<0.5) ng/mL Urine Color Urine Appearance Urine pH (4.5-8.0) Ur Specific [place] (1.000-1.035) Urine Protein (Negative) Urine Glucose (UA) (Negative) g/dL Urine Ketones (NEGATIVE) Urine Occult Blood (Negative) Urine Nitrate (Negative) Urine Bilirubin (NEGATIVE) Urine Urobilinogen (0.2) E.U./dL Ur Leukocyte Esterase (NEGATIVE) Urine RBC (0-5/HPF) Urine WBC (0-5/HPF) Urine Bacteria (None) Hyaline Casts (None) Ur Culture Indicated? Ur Random Sodium (30-90) mmol/L Urine Creatinine mg/dL Ethyl Alcohol ( - 10) mg/dL SARS-CoV-2 (PCR) Negative (Negative) Influenza A (RT-PCR) Flu a negative (NEGATIVE) Influenza B (RT-PCR) Flu b negative (NEGATIVE) RSV (PCR) Negative (Negative) 03/12/22 03/12/22 03/12/22 Range/Units 11:40 11:40 11:40 WBC (4.5-11.0) X10^3/uL RBC (4.5-5.9) X10^6/uL Hgb (13.5-17.5) g/dL Hct (41-53) % MCV (80-100) fL MCH (26-34) PG MCHC (30-36) % RDW (11.6-14.8) % Plt Count (150-400) X10^3/uL Neut % (Auto) (50-75) % Lymph % (Auto) (25-40) % [place] % (Auto) (3-14) % Eos % (Auto) (2-4) % Baso % (Auto) (0-2) % Neut # (Auto) (5229-7023) /uL Lymph # (Auto) (2551-9542) /uL [place] # (Auto) (0-900) /uL Eos # (Auto) (0-450) /uL Baso # (Auto) (0-100) /uL Sodium (137-145) mmol/L Potassium (3.4-5.1) mmol/L Chloride (98-107) mmol/L Carbon Dioxide (22-32) mmol/L BUN (9-20) mg/dL Creatinine (0.66-1.25) mg/dL Estimated GFR (>60) mL/min BUN/Creatinine Ratio (6-22) Glucose (80-110) mg/dL Lactate 0.9 (0.7-2.1) mmol/L Calcium (8.4-10.2) mg/dL Total Bilirubin (0.2-1.3) mg/dL AST (17-59) IU/L ALT (<50) IU/L Alkaline Phosphatase (38-126) U/L Total Creatine Kinase 384 H (55-170) U/L CK-MB (CK-2) 13.40 H (<2.37) ng/mL CK-MB (CK-2) Rel Index 3.5 (1.5-5.0) % Troponin I 0.061 H (0.01-0.034) ng/mL NT-Pro-B Natriuret Pep 1160 H (<450) pg/mL Total Protein (6.3-8.2) g/dL Albumin (3.5-5.0) g/dL Globulin (1.7-4.1) g/dL Albumin/Globulin Ratio (1.0-2.8) Lipase (23-300) U/L Procalcitonin (<0.5) ng/mL Urine Color Urine Appearance Urine pH (4.5-8.0) Ur Specific [place] (1.000-1.035) Urine Protein (Negative) Urine Glucose (UA) (Negative) g/dL Urine Ketones (NEGATIVE) Urine Occult Blood (Negative) Urine Nitrate (Negative) Urine Bilirubin (NEGATIVE) Urine Urobilinogen (0.2) E.U./dL Ur Leukocyte Esterase (NEGATIVE) Urine RBC (0-5/HPF) Urine WBC (0-5/HPF) Urine Bacteria (None) Hyaline Casts (None) Ur Culture Indicated? Ur Random Sodium (30-90) mmol/L Urine Creatinine mg/dL Ethyl Alcohol ( - 10) mg/dL SARS-CoV-2 (PCR) (Negative) Influenza A (RT-PCR) (NEGATIVE) Influenza B (RT-PCR) (NEGATIVE) RSV (PCR) (Negative) 03/12/22 Range/Units 11:40 WBC (4.5-11.0) X10^3/uL RBC (4.5-5.9) X10^6/uL Hgb (13.5-17.5) g/dL Hct (41-53) % MCV (80-100) fL MCH (26-34) PG MCHC (30-36) % RDW (11.6-14.8) % Plt Count (150-400) X10^3/uL Neut % (Auto) (50-75) % Lymph % (Auto) (25-40) % [place] % (Auto) (3-14) % Eos % (Auto) (2-4) % Baso % (Auto) (0-2) % Neut # (Auto) (3128-8388) /uL Lymph # (Auto) (8168-8032) /uL [place] # (Auto) (0-900) /uL Eos # (Auto) (0-450) /uL Baso # (Auto) (0-100) /uL Sodium 137 (137-145) mmol/L Potassium 5.5 H (3.4-5.1) mmol/L Chloride 111 H (98-107) mmol/L Carbon Dioxide 14 L (22-32) mmol/L BUN 101 H (9-20) mg/dL Creatinine 3.82 H (0.66-1.25) mg/dL Estimated GFR 15 L (>60) mL/min BUN/Creatinine Ratio 26.4 H (6-22) Glucose 101 (80-110) mg/dL Lactate (0.7-2.1) mmol/L Calcium 8.7 (8.4-10.2) mg/dL Total Bilirubin (0.2-1.3) mg/dL AST (17-59) IU/L ALT (<50) IU/L Alkaline Phosphatase (38-126) U/L Total Creatine Kinase (55-170) U/L CK-MB (CK-2) (<2.37) ng/mL CK-MB (CK-2) Rel Index (1.5-5.0) % Troponin I (0.01-0.034) ng/mL NT-Pro-B Natriuret Pep (<450) pg/mL Total Protein (6.3-8.2) g/dL Albumin (3.5-5.0) g/dL Globulin (1.7-4.1) g/dL Albumin/Globulin Ratio (1.0-2.8) Lipase (23-300) U/L Procalcitonin (<0.5) ng/mL Urine Color Urine Appearance Urine pH (4.5-8.0) Ur Specific [place] (1.000-1.035) Urine Protein (Negative) Urine Glucose (UA) (Negative) g/dL Urine Ketones (NEGATIVE) Urine Occult Blood (Negative) Urine Nitrate (Negative) Urine Bilirubin (NEGATIVE) Urine Urobilinogen (0.2) E.U./dL Ur Leukocyte Esterase (NEGATIVE) Urine RBC (0-5/HPF) Urine WBC (0-5/HPF) Urine Bacteria (None) Hyaline Casts (None) Ur Culture Indicated? Ur Random Sodium (30-90) mmol/L Urine Creatinine mg/dL Ethyl Alcohol ( - 10) mg/dL SARS-CoV-2 (PCR) (Negative) Influenza A (RT-PCR) (NEGATIVE) Influenza B (RT-PCR) (NEGATIVE) RSV (PCR) (Negative) ECG Data Attestation: I personally reviewed and interpreted this ECG as follows: Interpretation: Sinus rhythm Ventricular rate is 67 Normal axis Normal QRS Normal QTC No ST T wave changes <Jagdish Bunn MD - Last Filed: 03/12/22 11:14> Lab Data Labs: Lab Results 03/12/22 03/12/22 03/12/22 Range/Units 02:50 02:50 05:55 WBC 22.9 H (4.5-11.0) X10^3/uL RBC 3.26 L (4.5-5.9) X10^6/uL Hgb 9.9 L (13.5-17.5) g/dL Hct 30.5 L (41-53) % MCV 93.6 (80-100) fL MCH 30.4 (26-34) PG MCHC 32.5 (30-36) % RDW 14.3 (11.6-14.8) % Plt Count 177 (150-400) X10^3/uL Neut % (Auto) 83.7 H (50-75) % Lymph % (Auto) 6.6 L (25-40) % [place] % (Auto) 7.9 (3-14) % Eos % (Auto) 1.6 L (2-4) % Baso % (Auto) 0.2 (0-2) % Neut # (Auto) 71814 H (2252-5926) /uL Lymph # (Auto) 1500 (5077-0270) /uL [place] # (Auto) 1800 H (0-900) /uL Eos # (Auto) 400 (0-450) /uL Baso # (Auto) 100 (0-100) /uL Sodium (137-145) mmol/L Potassium (3.4-5.1) mmol/L Chloride (98-107) mmol/L Carbon Dioxide (22-32) mmol/L BUN (9-20) mg/dL Creatinine (0.66-1.25) mg/dL Estimated GFR (>60) mL/min BUN/Creatinine Ratio (6-22) Glucose (80-110) mg/dL Lactate (0.7-2.1) mmol/L Calcium (8.4-10.2) mg/dL Total Bilirubin (0.2-1.3) mg/dL AST (17-59) IU/L ALT (<50) IU/L Alkaline Phosphatase (38-126) U/L Total Creatine Kinase (55-170) U/L CK-MB (CK-2) (<2.37) ng/mL CK-MB (CK-2) Rel Index (1.5-5.0) % Troponin I (0.01-0.034) ng/mL NT-Pro-B Natriuret Pep (<450) pg/mL Total Protein (6.3-8.2) g/dL Albumin (3.5-5.0) g/dL Globulin (1.7-4.1) g/dL Albumin/Globulin Ratio (1.0-2.8) Lipase (23-300) U/L Procalcitonin (<0.5) ng/mL Urine Color Yellow Urine Appearance Clear Urine pH 5.0 (4.5-8.0) Ur Specific [place] >=1.030 H (1.000-1.035) Urine Protein 1+ H (Negative) Urine Glucose (UA) Trace H (Negative) g/dL Urine Ketones Negative (NEGATIVE) Urine Occult Blood Negative (Negative) Urine Nitrate Negative (Negative) Urine Bilirubin Negative (NEGATIVE) Urine Urobilinogen 0.2 (0.2) E.U./dL Ur Leukocyte Esterase Negative (NEGATIVE) Urine RBC None seen (0-5/HPF) Urine WBC None seen (0-5/HPF) Urine Bacteria None seen (None) Hyaline Casts 1-5/lpf (None) Ur Culture Indicated? Cult not indicated Ur Random Sodium 26 L (30-90) mmol/L Urine Creatinine 339.8 mg/dL Ethyl Alcohol ( - 10) mg/dL SARS-CoV-2 (PCR) (Negative) Influenza A (RT-PCR) (NEGATIVE) Influenza B (RT-PCR) (NEGATIVE) RSV (PCR) (Negative) 03/12/22 03/12/22 03/12/22 Range/Units 05:55 05:55 05:55 WBC (4.5-11.0) X10^3/uL RBC (4.5-5.9) X10^6/uL Hgb (13.5-17.5) g/dL Hct (41-53) % MCV (80-100) fL MCH (26-34) PG MCHC (30-36) % RDW (11.6-14.8) % Plt Count (150-400) X10^3/uL Neut % (Auto) (50-75) % Lymph % (Auto) (25-40) % [place] % (Auto) (3-14) % Eos % (Auto) (2-4) % Baso % (Auto) (0-2) % Neut # (Auto) (0614-1770) /uL Lymph # (Auto) (6676-3207) /uL [place] # (Auto) (0-900) /uL Eos # (Auto) (0-450) /uL Baso # (Auto) (0-100) /uL Sodium 138 (137-145) mmol/L Potassium 5.7 H (3.4-5.1) mmol/L Chloride 109 H (98-107) mmol/L Carbon Dioxide 15 L (22-32) mmol/L BUN 107 H* (9-20) mg/dL Creatinine 4.79 H (0.66-1.25) mg/dL Estimated GFR 11 L (>60) mL/min BUN/Creatinine Ratio 22.3 H (6-22) Glucose 94 (80-110) mg/dL Lactate (0.7-2.1) mmol/L Calcium 8.8 (8.4-10.2) mg/dL Total Bilirubin 0.6 (0.2-1.3) mg/dL AST 30 (17-59) IU/L ALT 20 (<50) IU/L Alkaline Phosphatase 45 (38-126) U/L Total Creatine Kinase 397 H (55-170) U/L CK-MB (CK-2) 14.00 H (<2.37) ng/mL CK-MB (CK-2) Rel Index 3.5 (1.5-5.0) % Troponin I 0.068 H (0.01-0.034) ng/mL NT-Pro-B Natriuret Pep 1610 H (<450) pg/mL Total Protein 6.0 L (6.3-8.2) g/dL Albumin 3.2 L (3.5-5.0) g/dL Globulin 2.8 (1.7-4.1) g/dL Albumin/Globulin Ratio 1.1 (1.0-2.8) Lipase 40 (23-300) U/L Procalcitonin (<0.5) ng/mL Urine Color Urine Appearance Urine pH (4.5-8.0) Ur Specific [place] (1.000-1.035) Urine Protein (Negative) Urine Glucose (UA) (Negative) g/dL Urine Ketones (NEGATIVE) Urine Occult Blood (Negative) Urine Nitrate (Negative) Urine Bilirubin (NEGATIVE) Urine Urobilinogen (0.2) E.U./dL Ur Leukocyte Esterase (NEGATIVE) Urine RBC (0-5/HPF) Urine WBC (0-5/HPF) Urine Bacteria (None) Hyaline Casts (None) Ur Culture Indicated? Ur Random Sodium (30-90) mmol/L Urine Creatinine mg/dL Ethyl Alcohol < 10 ( - 10) mg/dL SARS-CoV-2 (PCR) (Negative) Influenza A (RT-PCR) (NEGATIVE) Influenza B (RT-PCR) (NEGATIVE) RSV (PCR) (Negative) 03/12/22 03/12/22 03/12/22 Range/Units 05:55 05:55 08:26 WBC (4.5-11.0) X10^3/uL RBC (4.5-5.9) X10^6/uL Hgb (13.5-17.5) g/dL Hct (41-53) % MCV (80-100) fL MCH (26-34) PG MCHC (30-36) % RDW (11.6-14.8) % Plt Count (150-400) X10^3/uL Neut % (Auto) (50-75) % Lymph % (Auto) (25-40) % [place] % (Auto) (3-14) % Eos % (Auto) (2-4) % Baso % (Auto) (0-2) % Neut # (Auto) (1083-8936) /uL Lymph # (Auto) (6528-5349) /uL [place] # (Auto) (0-900) /uL Eos # (Auto) (0-450) /uL Baso # (Auto) (0-100) /uL Sodium (137-145) mmol/L Potassium (3.4-5.1) mmol/L Chloride (98-107) mmol/L Carbon Dioxide (22-32) mmol/L BUN (9-20) mg/dL Creatinine (0.66-1.25) mg/dL Estimated GFR (>60) mL/min BUN/Creatinine Ratio (6-22) Glucose (80-110) mg/dL Lactate 2.4 H (0.7-2.1) mmol/L Calcium (8.4-10.2) mg/dL Total Bilirubin (0.2-1.3) mg/dL AST (17-59) IU/L ALT (<50) IU/L Alkaline Phosphatase (38-126) U/L Total Creatine Kinase (55-170) U/L CK-MB (CK-2) (<2.37) ng/mL CK-MB (CK-2) Rel Index (1.5-5.0) % Troponin I (0.01-0.034) ng/mL NT-Pro-B Natriuret Pep (<450) pg/mL Total Protein (6.3-8.2) g/dL Albumin (3.5-5.0) g/dL Globulin (1.7-4.1) g/dL Albumin/Globulin Ratio (1.0-2.8) Lipase (23-300) U/L Procalcitonin 0.87 H (<0.5) ng/mL Urine Color Urine Appearance Urine pH (4.5-8.0) Ur Specific [place] (1.000-1.035) Urine Protein (Negative) Urine Glucose (UA) (Negative) g/dL Urine Ketones (NEGATIVE) Urine Occult Blood (Negative) Urine Nitrate (Negative) Urine Bilirubin (NEGATIVE) Urine Urobilinogen (0.2) E.U./dL Ur Leukocyte Esterase (NEGATIVE) Urine RBC (0-5/HPF) Urine WBC (0-5/HPF) Urine Bacteria (None) Hyaline Casts (None) Ur Culture Indicated? Ur Random Sodium (30-90) mmol/L Urine Creatinine mg/dL Ethyl Alcohol ( - 10) mg/dL SARS-CoV-2 (PCR) Negative (Negative) Influenza A (RT-PCR) Flu a negative (NEGATIVE) Influenza B (RT-PCR) Flu b negative (NEGATIVE) RSV (PCR) Negative (Negative) 03/12/22 03/12/22 03/12/22 Range/Units 11:40 11:40 11:40 WBC (4.5-11.0) X10^3/uL RBC (4.5-5.9) X10^6/uL Hgb (13.5-17.5) g/dL Hct (41-53) % MCV (80-100) fL MCH (26-34) PG MCHC (30-36) % RDW (11.6-14.8) % Plt Count (150-400) X10^3/uL Neut % (Auto) (50-75) % Lymph % (Auto) (25-40) % [place] % (Auto) (3-14) % Eos % (Auto) (2-4) % Baso % (Auto) (0-2) % Neut # (Auto) (3834-4599) /uL Lymph # (Auto) (8527-9907) /uL [place] # (Auto) (0-900) /uL Eos # (Auto) (0-450) /uL Baso # (Auto) (0-100) /uL Sodium (137-145) mmol/L Potassium (3.4-5.1) mmol/L Chloride (98-107) mmol/L Carbon Dioxide (22-32) mmol/L BUN (9-20) mg/dL Creatinine (0.66-1.25) mg/dL Estimated GFR (>60) mL/min BUN/Creatinine Ratio (6-22) Glucose (80-110) mg/dL Lactate 0.9 (0.7-2.1) mmol/L Calcium (8.4-10.2) mg/dL Total Bilirubin (0.2-1.3) mg/dL AST (17-59) IU/L ALT (<50) IU/L Alkaline Phosphatase (38-126) U/L Total Creatine Kinase 384 H (55-170) U/L CK-MB (CK-2) 13.40 H (<2.37) ng/mL CK-MB (CK-2) Rel Index 3.5 (1.5-5.0) % Troponin I 0.061 H (0.01-0.034) ng/mL NT-Pro-B Natriuret Pep 1160 H (<450) pg/mL Total Protein (6.3-8.2) g/dL Albumin (3.5-5.0) g/dL Globulin (1.7-4.1) g/dL Albumin/Globulin Ratio (1.0-2.8) Lipase (23-300) U/L Procalcitonin (<0.5) ng/mL Urine Color Urine Appearance Urine pH (4.5-8.0) Ur Specific [place] (1.000-1.035) Urine Protein (Negative) Urine Glucose (UA) (Negative) g/dL Urine Ketones (NEGATIVE) Urine Occult Blood (Negative) Urine Nitrate (Negative) Urine Bilirubin (NEGATIVE) Urine Urobilinogen (0.2) E.U./dL Ur Leukocyte Esterase (NEGATIVE) Urine RBC (0-5/HPF) Urine WBC (0-5/HPF) Urine Bacteria (None) Hyaline Casts (None) Ur Culture Indicated? Ur Random Sodium (30-90) mmol/L Urine Creatinine mg/dL Ethyl Alcohol ( - 10) mg/dL SARS-CoV-2 (PCR) (Negative) Influenza A (RT-PCR) (NEGATIVE) Influenza B (RT-PCR) (NEGATIVE) RSV (PCR) (Negative) 03/12/22 Range/Units 11:40 WBC (4.5-11.0) X10^3/uL RBC (4.5-5.9) X10^6/uL Hgb (13.5-17.5) g/dL Hct (41-53) % MCV (80-100) fL MCH (26-34) PG MCHC (30-36) % RDW (11.6-14.8) % Plt Count (150-400) X10^3/uL Neut % (Auto) (50-75) % Lymph % (Auto) (25-40) % [place] % (Auto) (3-14) % Eos % (Auto) (2-4) % Baso % (Auto) (0-2) % Neut # (Auto) (8117-7787) /uL Lymph # (Auto) (9634-5943) /uL [place] # (Auto) (0-900) /uL Eos # (Auto) (0-450) /uL Baso # (Auto) (0-100) /uL Sodium 137 (137-145) mmol/L Potassium 5.5 H (3.4-5.1) mmol/L Chloride 111 H (98-107) mmol/L Carbon Dioxide 14 L (22-32) mmol/L BUN 101 H (9-20) mg/dL Creatinine 3.82 H (0.66-1.25) mg/dL Estimated GFR 15 L (>60) mL/min BUN/Creatinine Ratio 26.4 H (6-22) Glucose 101 (80-110) mg/dL Lactate (0.7-2.1) mmol/L Calcium 8.7 (8.4-10.2) mg/dL Total Bilirubin (0.2-1.3) mg/dL AST (17-59) IU/L ALT (<50) IU/L Alkaline Phosphatase (38-126) U/L Total Creatine Kinase (55-170) U/L CK-MB (CK-2) (<2.37) ng/mL CK-MB (CK-2) Rel Index (1.5-5.0) % Troponin I (0.01-0.034) ng/mL NT-Pro-B Natriuret Pep (<450) pg/mL Total Protein (6.3-8.2) g/dL Albumin (3.5-5.0) g/dL Globulin (1.7-4.1) g/dL Albumin/Globulin Ratio (1.0-2.8) Lipase (23-300) U/L Procalcitonin (<0.5) ng/mL Urine Color Urine Appearance Urine pH (4.5-8.0) Ur Specific [place] (1.000-1.035) Urine Protein (Negative) Urine Glucose (UA) (Negative) g/dL Urine Ketones (NEGATIVE) Urine Occult Blood (Negative) Urine Nitrate (Negative) Urine Bilirubin (NEGATIVE) Urine Urobilinogen (0.2) E.U./dL Ur Leukocyte Esterase (NEGATIVE) Urine RBC (0-5/HPF) Urine WBC (0-5/HPF) Urine Bacteria (None) Hyaline Casts (None) Ur Culture Indicated? Ur Random Sodium (30-90) mmol/L Urine Creatinine mg/dL Ethyl Alcohol ( - 10) mg/dL SARS-CoV-2 (PCR) (Negative) Influenza A (RT-PCR) (NEGATIVE) Influenza B (RT-PCR) (NEGATIVE) RSV (PCR) (Negative) <Jagdish Bunn MD - Last Filed: 03/12/22 11:14> Critical Care Time Critical Care Time: Yes Total Critical Care Time: 100 Attestation: Critical care time included initial discussion with the prior physician, interview and evaluation of the patient, review medical records, EKG, radiology, and lab data. Time included multiple clinical decisions. The situation was discussed with the patient. The situation was discussed with admitting physician. Discharge Plan Departure Patient Disposition: Admitted As Inpatient Clinical Impression: Septic shock, CHF (congestive heart failure), Acute CHF, History of lung cancer, COPD (chronic obstructive pulmonary disease), Aortic valve stenosis, critical, Cardiogenic shock, DNR no code (do not resuscitate) Pneumonia Qualifiers: Pneumonia type: due to unspecified organism Laterality: bilateral Lung location: unspecified part of lung Qualified Code(s): J18.9 - Pneumonia, unspecified organism Admit Date/Time: 03/12/22 14:17 Admit Provider: Jeffrey Jennings
--- NOTE | 2022-03-12 06:22 | DI.RAD.S_ITS ---
PROCEDURE: XR CHEST 1V INDICATIONS: eval for PNA TECHNIQUE: One view of the chest was acquired. COMPARISON: [facility], CR, XR CHEST 1V, 02/06/2022, 19:20. FINDINGS: Surgical changes and devices: Surgical clips are again seen in mediastinum and left hilar region. Lungs and pleura: Increased bronchovascular markings in bilateral hilar region are noted with mild bilateral interstitial pulmonary edema. Bilateral perihilar infiltrates cannot be excluded. No significant pleural effusion or gross pneumothorax. Mediastinum: Tortuous thoracic aorta with aortic arch calcification is seen. Heart size is enlarged. Bones and chest wall: No suspicious bony lesions. Overlying soft tissues appear unremarkable. IMPRESSION: Finding is suggestive of CHF. Underlying bilateral perihilar infiltrates cannot be excluded. No significant pleural effusion or gross pneumothorax. Dictated by: Alexandru Gutierrez M.D. on 03/12/2022 at 8:11 Approved by: Alexandru Gutierrez M.D. on 03/12/2022 at 8:15
[2022-03-12 06:24] LABS: Ethanol (ETOH) < 10 mg/dL
[2022-03-12 06:25] LABS: Alanine Aminotransferase 20 IU/L (<50); Albumin 3.2 g/dL (3.5-5.0); Albumin Globulin Ratio 1.1 (1.0-2.8); Alkaline Phosphatase 45 U/L (38-126); Aspartate Aminotransferase 30 IU/L (17-59); BUN Creatinine Ratio 22.3 (6-22); Bilirubin Total 0.6 mg/dL (0.2-1.3); Calcium 8.8 mg/dL (8.4-10.2); Carbon Dioxide 15 mmol/L (22-32); Chloride 109 mmol/L (98-107); Creatine Kinase 397 U/L (55-170); Estimated Glomerular Filt Rate 11 mL/min (>60); Globulin 2.8 g/dL (1.7-4.1); Glucose 94 mg/dL (80-110); HEMOLYSIS < 15 (0-50); Lipase 40 U/L (23-300); Sodium 138 mmol/L (137-145)
[2022-03-12 06:33] LABS: NT-proBNP (BNP-Adult 18+) 1610 pg/mL (<450)
[2022-03-12 06:34] LABS: Potassium 5.7 mmol/L (3.4-5.1)
[2022-03-12 06:35] LABS: Blood Urea Nitrogen 107 mg/dL (9-20)
[2022-03-12 06:37] LABS: Troponin I 0.068 ng/mL (0.01-0.034)
[2022-03-12 06:39] LABS: Lactate (Lactic Acid) 2.4 mmol/L (0.7-2.1)
[2022-03-12 06:40] LABS: CKMB % Relative Index 3.5 % (1.5-5.0)
[2022-03-12 06:57] LABS: Procalcitonin 0.87 ng/mL (<0.5)
[2022-03-12] MEDS: cefTRIAXone 1,000 MG in SODIUM CHLORIDE 0.9% 100 ML 200 MG IV (06:59)
[2022-03-12] MEDS: HYDROCODONE/ACET 5/325 TABLET 1 TAB PO ×2 (07:04→22:36)
[2022-03-12] MEDS: SODIUM CHLORIDE 0.9% 1,000 ML 1000 ML IV ×2 (07:40→07:59)
[2022-03-12] MEDS: SODIUM CHLORIDE 0.9% FLUSH 9 ML, EPINEPHrine 0.1 MG IV ×2 (07:47→08:02)
[2022-03-12] MEDS: VANCOMYCIN 2,000 MG/400 ML PIGGYBACK 200 MG IV (08:00)
[2022-03-12 08:05] LABS: Appearance Urine UA CLEAR; Bilirubin Urine UA NEGATIVE (NEGATIVE); Color Urine UA YELLOW; Glucose Urine UA TRACE g/dL (Negative); Ketones Urine UA NEGATIVE (NEGATIVE); Leukocyte Esterase Urine UA NEGATIVE (NEGATIVE); Nitrite Urine UA NEGATIVE (Negative); Occult Blood Urine UA NEGATIVE (Negative); Protein Urine UA 1+ (Negative); Specific Gravity Urine UA >=1.030 (1.000-1.035); Urobilinogen Urine UA 0.2 E.U./dL (0.2)
[2022-03-12] MEDS: NOREPINEPHRINE BITARTRATE/D5W 4 MG/250 ML PLAST..BAG 30 MG IV (08:09)
--- NOTE | 2022-03-12 08:10 | DI.CT.S_ITS ---
PROCEDURE: CT CHEST ABD PEL WO CON INDICATIONS: Sepsis with dyspnes, renal failure and back pain. TECHNIQUE: After the administration of oral contrast, 5 mm thick sections acquired from the lung apices to the symphysis pubis. 5 mm thick coronal and sagittal reformats acquired, with additional 7 mm coronal MIP reformats through the lungs. For radiation dose reduction, the following was used: automated exposure control, adjustment of mA and/or kV according to patient size. COMPARISON: [facility], CR, XR CHEST 1V, 03/12/2022, 6:22. FINDINGS: Image quality: Excellent. CHEST: Lungs and pleura: There is severe centrilobular and paraseptal emphysema with an apical predominance. A 0.7 x 1.1 cm spiculated mass is present at the right apex (series 3/image 105). Postoperative changes and volume loss are present throughout the left lung. Patchy airspace opacities are present at the left lung base. No pleural effusion or pneumothorax. Mediastinum: Heart size is enlarged. No pericardial effusion. No mediastinal adenopathy by CT size criteria. Thoracic aorta and central pulmonary arteries are normal in size. Scattered atheromatous calcifications are present within the aortic arch. Esophagus is normal in caliber. No hiatal hernia. Chest wall: No axillary or supraclavicular adenopathy by size criteria. Thyroid gland is unremarkable. ABDOMEN: Solid organs: Liver is normal in size. 1 and 2 mm hyperdensities are noted within the gallbladder fundus suggesting cholelithiasis. No gallbladder wall thickening or pericholecystic fluid. Pancreas is normal in contours. Spleen is normal in size. No adrenal nodules. Both kidneys are normal in size, without hydronephrosis or nephrolithiasis. Peritoneum and bowel: Small and large bowel loops are normal in caliber and wall thickness. The appendix is thin walled and gas filled.No free fluid or air. Nodes and vessels: No retroperitoneal or mesenteric adenopathy by size criteria. Aorta and inferior vena cava are normal in size. There are scattered atheromatous calcifications throughout the aorta and iliac arteries bilaterally. Miscellaneous: No ventral hernias. PELVIS: Genitourinary: Bladder wall thickness is normal. A small amount of gas is noted within the bladder in the setting of a Dewitt catheter likely secondary to catheterization. Miscellaneous: No inguinal adenopathy. There are small bilateral fat containing inguinal hernias. Bones: No suspicious bony lesions. No vertebral body compression fractures. IMPRESSION: 1. Severe emphysematous change. 2. Left airspace opacities suggesting aspiration or infection. 3. No acute intra-abdominal findings. Normal appendix. 4. Probable cholelithiasis. No findings to suggest choledocholithiasis or acute cholecystitis. 5. Spiculated right upper lobe mass. Findings are suspicious for neoplasm although infection could also cause this appearance. Short interval (1 month) follow-up recommended. Dictated by: Jennie Coats M.D. on 03/12/2022 at 9:28 Approved by: Jennie Coats M.D. on 03/12/2022 at 9:36
[2022-03-12 08:12] LABS: Creatinine Urine Random 339.8 mg/dL; RBC Urine None Seen (0-5/HPF); Sodium Urine Random 26 mmol/L (30-90); WBC Urine None Seen (0-5/HPF)
[2022-03-12 08:13] LABS: Bacteria Urine None Seen; Culture Indicated Urine Cult Not Indicated; Hyaline Casts Urine 1-5/LPF
[2022-03-12] MEDS: levoFLOXacin 500 MG/100 ML PIGGYBACK 100 MG IV (08:15)
[2022-03-12 08:31] LABS: Reflexed Lactate in 2 Hours Y
[2022-03-12 09:16] LABS: COVID-19 CEPHEID 4-PLEX PCR Negative (Negative); Influenza A - CEPHEID Flu A NEGATIVE (NEGATIVE); Influenza B - CEPHEID Flu B NEGATIVE (NEGATIVE); Respiratory Syncytial Virus Negative (Negative)
--- NOTE | 2022-03-12 10:05 | PC.NURSE ---
Delay in repeat lactate r/t unable to draw and no availability of lab. Called for PICC line / Central Access.
--- NOTE | 2022-03-12 10:51 | DI.RAD.S_ITS ---
PROCEDURE: XR CHEST FOR PICC 1V INDICATIONS: line placement COMPARISON: Merged With [facility], CR, XR CHEST 1V, 03/12/2022, 6:22. FINDINGS: PICC was placed by the intravenous therapy team from the left side. Fluoroscopic spot film demonstrates the tip of PICC projecting to the area of SVC IMPRESSION: Tip of PICC projects to the area of SVC. Dictated by: Alexandru Gutierrez M.D. on 03/12/2022 at 11:13 Approved by: Alexandru Gutierrez M.D. on 03/12/2022 at 11:14
[2022-03-12] MEDS: SODIUM CHLORIDE 0.9% 1,000 ML 125 ML IV (11:40)
[2022-03-12 11:54] LABS: Creatine Kinase 384 U/L (55-170)
[2022-03-12 11:55] LABS: Lactate 2HR (Lactic Acid Rflx) 0.9 mmol/L (0.7-2.1)
[2022-03-12 12:05] LABS: NT-proBNP (BNP-Adult 18+) 1160 pg/mL (<450)
[2022-03-12 12:08] LABS: Troponin I 0.061 ng/mL (0.01-0.034)
[2022-03-12 12:10] LABS: CKMB % Relative Index 3.5 % (1.5-5.0)
--- NOTE | 2022-03-12 13:39 | P.HP_ITS ---
History of Present Illness History of Present Illness Date Patient Seen: 03/12/22 Time Patient Seen: 13:41 Chief complaint: fall Narrative: 86-year-old male with critical aortic stenosis COPD history of lung cancer and concerning new lesion on lung chronic kidney disease coronary artery disease hypertension hyperlipidemia morbid obesity and alcohol misuse was brought into the emergency department with weakness. Patient was trying to get out of bed this morning and fell. Patient was hospitalized approximately 1 month ago. The time he was found to be in septic shock. Spent a few days in the hospital and recovered was in the [facility] for about 2 weeks and has been home for 2 weeks. Says he has been feeling more and more weak. Not much energy. Feeling lightheaded and dizzy. Not had any fever he does always have a cough and he is on and shortness of breath. He is still smoking. He says he has not had an alcoholic drink for the last 5 days. Denies significant fever. He is mentating well. He is a little bit tachypneic. He lives at home with his partner. Has a daughter who helps with his finances. Patient states he does not want to be mechanically ventilated and does not want you have major procedures done at this time. Patient History Medical History Acute respiratory failure with hypoxia Chronic back pain (~1959) COPD (chronic obstructive pulmonary disease) Gout (~2011) History of urinary incontinence Lung cancer (~2007) Moderate aortic stenosis by prior echocardiogram Pancreatitis (~2005) Vision disorder Surgical History Anesthesia History of lung surgery (~03/2007) Family & Social History Family History Father Heart disease Grandmother Age: 82 Ovarian cancer, unspecified laterality Mother Diabetes mellitus Sister No problems noted. Social History: household members friend(s) Safety & Behavioral: Feels Safe in Current Yes Environment Been Physically Hurt or No Threatened By a Person Tobacco & Substance use: Tobacco type cigarettes Smoking Status Current every day smoker alcohol intake current alcohol intake frequency 3 or more drinks per day Substance Use Type does not use Meds Home Medications and Allergies Home Medications Medication Instructions Recorded Confirmed Type aspirin 81 mg chewable tablet 81 mg PO DAILY 12/17/17 02/11/22 History albuterol sulfate 90 mcg/actuation 2 puff inhalation Q4H PRN 06/20/21 02/11/22 Rx aerosol inhaler (Ventolin HFA) Shortness Of Breath #8.5 grams inhalational spacing device #1 ea 06/20/21 02/06/22 Rx (BreatheRite MDI Spacer) gabapentin 300 mg capsule 300 mg PO BEDTIME #30 caps 01/27/22 02/11/22 Rx lidocaine 5 % topical patch 1 patch topical DAILY #15 ea 01/27/22 02/11/22 Rx (Lidoderm) acetaminophen 325 mg tablet 650 mg PO Q6H PRN Fever/Mild Pain 02/11/22 Rx (1-3) #30 tabs atorvastatin 20 mg tablet 20 mg PO BEDTIME 02/11/22 02/11/22 History fluticasone 250 mcg-salmeterol 50 1 inh inhalation BID 02/11/22 02/11/22 History mcg/dose blistr powdr for inhalation furosemide 40 mg tablet 40 mg PO DAILY #30 tabs 02/11/22 Rx hydrocodone 5 mg-acetaminophen 325 1 tab PO Q6HR PRN pain #20 tabs 02/11/22 Rx mg tablet lisinopril 40 mg tablet 40 mg PO BID 02/11/22 02/11/22 History metoprolol tartrate 100 mg tablet 100 mg PO BID 02/11/22 02/11/22 History pantoprazole 40 mg tablet,delayed 40 mg PO 0700 #20 tabs 02/11/22 Rx release prednisone 20 mg tablet 60 mg PO DAILY #20 tabs 02/11/22 Rx cefdinir 300 mg capsule 300 mg PO BID #10 caps 02/12/22 Rx hydrocodone 5 mg-acetaminophen 325 1 tab PO Q6H PRN pain #20 tabs 02/12/22 Rx mg tablet Allergies Allergy/AdvReac Type Severity Reaction Status Date / Time No Known Drug Allergies Allergy Verified 01/27/22 09:34 Exam Vital Signs (past 8 hours): - 03/12/22 06:14 03/12/22 06:09 03/12/22 06:10 Temperature 97.3 F L Pulse Rate 67 66 66 Respiratory Rate 22 22 26 H Blood Pressure 93/51 L Pulse Oximetry 100 98 94 Oxygen Delivery Method Nasal Cannula Oxygen Flow Rate 2 03/12/22 06:15 03/12/22 06:20 03/12/22 06:24 Temperature Pulse Rate 67 67 Respiratory Rate 16 36 H Blood Pressure 95/51 L Pulse Oximetry 70 L Oxygen Delivery Method Oxygen Flow Rate 03/12/22 06:24 03/12/22 06:25 03/12/22 06:28 Temperature Pulse Rate 66 66 Respiratory Rate 24 33 H Blood Pressure 97/46 L Pulse Oximetry 91 93 Oxygen Delivery Method Oxygen Flow Rate 03/12/22 06:28 03/12/22 06:30 03/12/22 06:30 Temperature Pulse Rate 66 65 Respiratory Rate 21 17 Blood Pressure 100/45 L Pulse Oximetry 99 99 Oxygen Delivery Method Oxygen Flow Rate 03/12/22 06:35 03/12/22 06:40 03/12/22 06:45 Temperature Pulse Rate 66 64 64 Respiratory Rate 21 19 18 Blood Pressure Pulse Oximetry 99 Oxygen Delivery Method Oxygen Flow Rate 03/12/22 06:50 03/12/22 06:55 03/12/22 07:00 Temperature Pulse Rate 66 63 64 Respiratory Rate 25 H 19 25 H Blood Pressure Pulse Oximetry 93 98 96 Oxygen Delivery Method Oxygen Flow Rate 03/12/22 07:05 03/12/22 07:10 03/12/22 07:15 Temperature Pulse Rate 67 67 65 Respiratory Rate 26 H 44 H 23 Blood Pressure Pulse Oximetry 95 88 L 98 Oxygen Delivery Method Oxygen Flow Rate 03/12/22 07:20 03/12/22 07:25 03/12/22 07:30 Temperature Pulse Rate 64 62 63 Respiratory Rate 31 H 20 25 H Blood Pressure Pulse Oximetry 90 L 83 L 87 L Oxygen Delivery Method Nasal Cannula Nasal Cannula Oxygen Flow Rate 2 4 03/12/22 07:34 03/12/22 07:34 03/12/22 07:35 Temperature Pulse Rate 62 63 Respiratory Rate 24 26 H Blood Pressure 78/49 L Pulse Oximetry 95 94 Oxygen Delivery Method Nasal Cannula Nasal Cannula Oxygen Flow Rate 4 4 03/12/22 07:40 03/12/22 07:41 03/12/22 07:41 Temperature Pulse Rate 64 63 Respiratory Rate 14 18 Blood Pressure 64/31 L Pulse Oximetry 96 95 Oxygen Delivery Method Oxygen Flow Rate 03/12/22 07:44 03/12/22 07:44 03/12/22 07:45 Temperature Pulse Rate 62 Respiratory Rate 20 Blood Pressure 64/40 L 69/44 L Pulse Oximetry 94 Oxygen Delivery Method Oxygen Flow Rate 03/12/22 07:45 03/12/22 07:49 03/12/22 07:49 Temperature Pulse Rate 62 65 Respiratory Rate 22 28 H Blood Pressure 74/46 L Pulse Oximetry 93 94 Oxygen Delivery Method Oxygen Flow Rate 03/12/22 07:50 03/12/22 07:50 03/12/22 07:55 Temperature 94.8 F L 95.5 F L Pulse Rate 71 70 Respiratory Rate 37 H 23 Blood Pressure 100/50 L Pulse Oximetry 93 97 Oxygen Delivery Method Oxygen Flow Rate 03/12/22 07:58 03/12/22 07:58 03/12/22 08:00 Temperature 96.4 F L 97.0 F L Pulse Rate 71 70 Respiratory Rate 30 H 22 Blood Pressure 72/44 L Pulse Oximetry 94 94 Oxygen Delivery Method Nasal Cannula Oxygen Flow Rate 4 03/12/22 08:01 03/12/22 08:01 03/12/22 08:05 Temperature 97.0 F L Pulse Rate 71 Respiratory Rate 25 H Blood Pressure 73/43 L 65/42 L Pulse Oximetry 95 Oxygen Delivery Method Oxygen Flow Rate 03/12/22 08:05 03/12/22 08:10 03/12/22 08:11 Temperature 97.2 F L 97.3 F L 97.3 F L Pulse Rate 79 74 74 Respiratory Rate 29 H 17 26 H Blood Pressure Pulse Oximetry 96 97 98 Oxygen Delivery Method Oxygen Flow Rate 03/12/22 08:11 03/12/22 08:15 03/12/22 08:15 Temperature 97.3 F L Pulse Rate 74 Respiratory Rate 25 H Blood Pressure 82/43 L 66/37 L Pulse Oximetry 99 Oxygen Delivery Method Nasal Cannula Oxygen Flow Rate 4 03/12/22 08:20 03/12/22 08:20 03/12/22 08:25 Temperature 97.2 F L Pulse Rate 76 Respiratory Rate 20 Blood Pressure 124/63 123/67 Pulse Oximetry 98 Oxygen Delivery Method Oxygen Flow Rate 03/12/22 08:25 03/12/22 08:30 03/12/22 08:30 Temperature 97.3 F L 97.5 F L Pulse Rate 80 84 Respiratory Rate 22 27 H Blood Pressure 128/76 Pulse Oximetry 95 91 Oxygen Delivery Method Oxygen Flow Rate 03/12/22 08:35 03/12/22 08:35 03/12/22 08:40 Temperature 97.5 F L Pulse Rate 86 Respiratory Rate 21 Blood Pressure 127/60 115/57 L Pulse Oximetry 94 Oxygen Delivery Method Oxygen Flow Rate 03/12/22 08:40 03/12/22 08:45 03/12/22 08:45 Temperature 97.5 F L 97.7 F Pulse Rate 87 89 Respiratory Rate 28 H 20 Blood Pressure 128/58 L Pulse Oximetry 93 95 Oxygen Delivery Method Oxygen Flow Rate 03/12/22 08:50 03/12/22 08:50 03/12/22 08:55 Temperature 97.7 F Pulse Rate 90 Respiratory Rate 19 Blood Pressure 107/52 L 121/59 L Pulse Oximetry 94 Oxygen Delivery Method Oxygen Flow Rate 03/12/22 08:55 03/12/22 09:00 03/12/22 09:01 Temperature 97.9 F 97.9 F Pulse Rate 91 H 87 Respiratory Rate 19 18 Blood Pressure 80/40 L Pulse Oximetry 93 97 Oxygen Delivery Method Oxygen Flow Rate 03/12/22 09:01 03/12/22 09:05 03/12/22 09:05 Temperature 97.9 F 97.9 F Pulse Rate 86 85 Respiratory Rate 18 19 Blood Pressure 79/41 L Pulse Oximetry 97 97 Oxygen Delivery Method Nasal Cannula Oxygen Flow Rate 4 03/12/22 09:08 03/12/22 09:08 03/12/22 09:10 Temperature Pulse Rate 87 Respiratory Rate Blood Pressure 111/60 107/62 Pulse Oximetry Oxygen Delivery Method Oxygen Flow Rate 03/12/22 09:10 03/12/22 09:15 03/12/22 09:15 Temperature Pulse Rate 86 88 Respiratory Rate 14 16 Blood Pressure 98/65 Pulse Oximetry 95 Oxygen Delivery Method Oxygen Flow Rate 03/12/22 09:20 03/12/22 09:20 03/12/22 09:23 Temperature Pulse Rate 92 H Respiratory Rate 27 H Blood Pressure 96/58 L 127/83 Pulse Oximetry 94 Oxygen Delivery Method Oxygen Flow Rate 03/12/22 09:23 03/12/22 09:25 03/12/22 09:30 Temperature 98.1 F 98.1 F 98.1 F Pulse Rate 88 88 89 Respiratory Rate 16 21 15 Blood Pressure Pulse Oximetry 97 96 96 Oxygen Delivery Method Oxygen Flow Rate 03/12/22 09:31 03/12/22 09:31 03/12/22 09:35 Temperature 98.1 F 98.1 F Pulse Rate 88 88 Respiratory Rate 14 22 Blood Pressure 135/62 Pulse Oximetry 95 95 Oxygen Delivery Method Oxygen Flow Rate 03/12/22 09:36 03/12/22 09:36 03/12/22 09:40 Temperature 98.1 F 98.1 F Pulse Rate 88 87 Respiratory Rate 24 20 Blood Pressure 108/54 L Pulse Oximetry 95 94 Oxygen Delivery Method Oxygen Flow Rate 03/12/22 09:41 03/12/22 09:45 03/12/22 09:46 Temperature 98.1 F 98.2 F Pulse Rate 87 86 Respiratory Rate 22 28 H Blood Pressure 133/57 L Pulse Oximetry 96 92 Oxygen Delivery Method Oxygen Flow Rate 03/12/22 09:46 03/12/22 09:50 03/12/22 09:50 Temperature 98.2 F 98.2 F Pulse Rate 86 87 Respiratory Rate 26 H 17 Blood Pressure 141/63 H Pulse Oximetry 92 94 Oxygen Delivery Method Oxygen Flow Rate 03/12/22 09:55 03/12/22 09:56 03/12/22 09:56 Temperature 98.2 F 98.2 F Pulse Rate 86 85 Respiratory Rate 15 15 Blood Pressure 143/92 H Pulse Oximetry 96 97 Oxygen Delivery Method Oxygen Flow Rate 03/12/22 10:00 03/12/22 10:05 03/12/22 10:10 Temperature 98.1 F 98.2 F 98.2 F Pulse Rate 83 83 81 Respiratory Rate 20 17 22 Blood Pressure Pulse Oximetry 96 96 96 Oxygen Delivery Method Oxygen Flow Rate 03/12/22 10:15 03/12/22 10:20 03/12/22 10:21 Temperature 98.2 F 98.2 F Pulse Rate 80 80 Respiratory Rate 24 18 Blood Pressure 144/58 H Pulse Oximetry 96 96 Oxygen Delivery Method Oxygen Flow Rate 03/12/22 10:21 03/12/22 10:25 03/12/22 10:30 Temperature 98.2 F 98.2 F Pulse Rate 80 80 Respiratory Rate 18 18 Blood Pressure 128/87 Pulse Oximetry 97 96 Oxygen Delivery Method Oxygen Flow Rate 03/12/22 10:30 03/12/22 10:35 03/12/22 10:36 Temperature 98.2 F 98.2 F 98.2 F Pulse Rate 80 80 79 Respiratory Rate 21 13 16 Blood Pressure Pulse Oximetry 95 97 97 Oxygen Delivery Method Oxygen Flow Rate 03/12/22 10:36 03/12/22 10:40 03/12/22 10:40 Temperature 98.2 F Pulse Rate 78 Respiratory Rate 16 Blood Pressure 85/45 L 64/28 L Pulse Oximetry 97 Oxygen Delivery Method Oxygen Flow Rate 03/12/22 10:45 03/12/22 10:47 03/12/22 10:47 Temperature 98.2 F 98.2 F Pulse Rate 78 77 Respiratory Rate 17 15 Blood Pressure 106/58 L Pulse Oximetry 97 96 Oxygen Delivery Method Oxygen Flow Rate 03/12/22 10:50 03/12/22 10:50 03/12/22 10:55 Temperature 98.2 F Pulse Rate 77 Respiratory Rate 17 Blood Pressure 115/60 112/58 L Pulse Oximetry 96 Oxygen Delivery Method Oxygen Flow Rate 03/12/22 10:55 03/12/22 11:00 03/12/22 11:00 Temperature 98.2 F 98.4 F Pulse Rate 79 80 Respiratory Rate 19 18 Blood Pressure 104/56 L Pulse Oximetry 96 95 Oxygen Delivery Method Nasal Cannula Oxygen Flow Rate 4 03/12/22 11:05 03/12/22 11:05 03/12/22 11:10 Temperature 98.2 F Pulse Rate 78 Respiratory Rate 20 Blood Pressure 109/59 L 105/64 Pulse Oximetry 95 Oxygen Delivery Method Oxygen Flow Rate 03/12/22 11:10 03/12/22 11:15 03/12/22 11:15 Temperature 98.1 F 98.4 F Pulse Rate 81 81 Respiratory Rate 23 30 H Blood Pressure 96/51 L Pulse Oximetry Oxygen Delivery Method Oxygen Flow Rate 03/12/22 11:20 03/12/22 11:21 03/12/22 11:21 Temperature 98.4 F 98.4 F Pulse Rate 79 80 Respiratory Rate 19 21 Blood Pressure 96/52 L Pulse Oximetry 96 96 Oxygen Delivery Method Oxygen Flow Rate 03/12/22 11:25 03/12/22 11:25 03/12/22 11:30 Temperature 98.4 F 98.4 F Pulse Rate 80 81 Respiratory Rate 17 17 Blood Pressure 111/59 L Pulse Oximetry 96 96 Oxygen Delivery Method Oxygen Flow Rate 03/12/22 11:33 03/12/22 11:33 03/12/22 11:35 Temperature 98.4 F Pulse Rate 81 Respiratory Rate 20 Blood Pressure 126/50 L 111/55 L Pulse Oximetry 95 Oxygen Delivery Method Oxygen Flow Rate 03/12/22 11:35 03/12/22 11:40 03/12/22 11:40 Temperature 98.4 F 98.6 F Pulse Rate 82 81 Respiratory Rate 19 19 Blood Pressure 109/65 Pulse Oximetry 95 94 Oxygen Delivery Method Oxygen Flow Rate 03/12/22 11:45 03/12/22 11:45 03/12/22 11:50 Temperature 98.6 F Pulse Rate 82 Respiratory Rate 21 Blood Pressure 111/56 L 105/52 L Pulse Oximetry 96 Oxygen Delivery Method Oxygen Flow Rate 03/12/22 11:50 03/12/22 11:55 03/12/22 11:55 Temperature 98.6 F 98.6 F Pulse Rate 81 82 Respiratory Rate 25 H 17 Blood Pressure 107/58 L Pulse Oximetry 97 96 Oxygen Delivery Method Oxygen Flow Rate 03/12/22 12:00 03/12/22 12:01 03/12/22 12:01 Temperature 98.6 F 98.6 F Pulse Rate 81 81 Respiratory Rate 21 22 Blood Pressure 110/56 L Pulse Oximetry 96 96 Oxygen Delivery Method Oxygen Flow Rate 03/12/22 12:05 03/12/22 12:06 03/12/22 12:06 Temperature 98.6 F 98.6 F Pulse Rate 83 82 Respiratory Rate 24 17 Blood Pressure 86/48 L Pulse Oximetry Oxygen Delivery Method Oxygen Flow Rate 03/12/22 12:10 03/12/22 12:11 03/12/22 12:11 Temperature 98.6 F 98.6 F Pulse Rate 82 81 Respiratory Rate 17 18 Blood Pressure 122/78 Pulse Oximetry 98 97 Oxygen Delivery Method Oxygen Flow Rate 03/12/22 12:15 03/12/22 12:16 03/12/22 12:16 Temperature 98.6 F 98.6 F Pulse Rate 84 84 Respiratory Rate 19 21 Blood Pressure 125/58 L Pulse Oximetry 97 96 Oxygen Delivery Method Nasal Cannula Oxygen Flow Rate 2 03/12/22 12:20 03/12/22 12:20 03/12/22 12:25 Temperature 98.6 F Pulse Rate 86 Respiratory Rate 18 Blood Pressure 110/55 L 114/55 L Pulse Oximetry 95 Oxygen Delivery Method Oxygen Flow Rate 03/12/22 12:25 03/12/22 12:30 03/12/22 12:30 Temperature 98.6 F 98.6 F Pulse Rate 87 87 Respiratory Rate 20 25 H Blood Pressure 126/58 L Pulse Oximetry 95 96 Oxygen Delivery Method Oxygen Flow Rate 03/12/22 12:35 03/12/22 12:36 03/12/22 12:36 Temperature 98.8 F 98.8 F Pulse Rate 85 85 Respiratory Rate 18 19 Blood Pressure 137/60 Pulse Oximetry 96 96 Oxygen Delivery Method Oxygen Flow Rate 03/12/22 12:40 03/12/22 12:40 Temperature 98.8 F Pulse Rate 86 Respiratory Rate 22 Blood Pressure 142/66 H Pulse Oximetry 97 Oxygen Delivery Method Nasal Cannula Oxygen Flow Rate 2 Oxygen Delivery Method Nasal Cannula Oxygen Flow Rate 2 Narrative Exam Narrative: Gen.: Alert sleeping in bed complaining of weakness mentating well and communicating clearly. HEENT: Pupils equal round and reactive or mucosa is somewhat dry. Scattered red ready complexion. Nasal discharge and some eye discharge. Cardio: S1-S2 systolic murmur 3/6 regular heart rhythm Respiratory: Lungs show mild increased work of breathing with crackles and decreased breath sounds at the lung bases. Abdomen: Soft obese nontender no apparent guarding Extremities: Warm dry perfused some lower extremity edema Objective Labs Result Diagrams: 03/12/22 05:55 03/12/22 05:55 Labs: Laboratory Results - last 24 hr 03/12/22 03/12/22 03/12/22 02:50 02:50 05:55 WBC 22.9 H RBC 3.26 L Hgb 9.9 L Hct 30.5 L MCV 93.6 MCH 30.4 MCHC 32.5 RDW 14.3 Plt Count 177 Neut % (Auto) 83.7 H Lymph % (Auto) 6.6 L [place] % (Auto) 7.9 Eos % (Auto) 1.6 L Baso % (Auto) 0.2 Neut # (Auto) 35734 H Lymph # (Auto) 1500 [place] # (Auto) 1800 H Eos # (Auto) 400 Baso # (Auto) 100 Sodium Potassium Chloride Carbon Dioxide BUN Creatinine Estimated GFR BUN/Creatinine Ratio Glucose Lactate Calcium Total Bilirubin AST ALT Alkaline Phosphatase Total Creatine Kinase CK-MB (CK-2) CK-MB (CK-2) Rel Index Troponin I NT-Pro-B Natriuret Pep Total Protein Albumin Globulin Albumin/Globulin Ratio Lipase Procalcitonin Urine Color Yellow Urine Appearance Clear Urine pH 5.0 Ur Specific [place] >=1.030 H Urine Protein 1+ H Urine Glucose (UA) Trace H Urine Ketones Negative Urine Occult Blood Negative Urine Nitrate Negative Urine Bilirubin Negative Urine Urobilinogen 0.2 Ur Leukocyte Esterase Negative Urine RBC None seen Urine WBC None seen Urine Bacteria None seen Hyaline Casts 1-5/lpf Ur Culture Indicated? Cult not indicated Ur Random Sodium 26 L Urine Creatinine 339.8 Ethyl Alcohol SARS-CoV-2 (PCR) Influenza A (RT-PCR) Influenza B (RT-PCR) RSV (PCR) 03/12/22 03/12/22 03/12/22 05:55 05:55 05:55 WBC RBC Hgb Hct MCV MCH MCHC RDW Plt Count Neut % (Auto) Lymph % (Auto) [place] % (Auto) Eos % (Auto) Baso % (Auto) Neut # (Auto) Lymph # (Auto) [place] # (Auto) Eos # (Auto) Baso # (Auto) Sodium 138 Potassium 5.7 H Chloride 109 H Carbon Dioxide 15 L BUN 107 H* Creatinine 4.79 H Estimated GFR 11 L BUN/Creatinine Ratio 22.3 H Glucose 94 Lactate Calcium 8.8 Total Bilirubin 0.6 AST 30 ALT 20 Alkaline Phosphatase 45 Total Creatine Kinase 397 H CK-MB (CK-2) 14.00 H CK-MB (CK-2) Rel Index 3.5 Troponin I 0.068 H NT-Pro-B Natriuret Pep 1610 H Total Protein 6.0 L Albumin 3.2 L Globulin 2.8 Albumin/Globulin Ratio 1.1 Lipase 40 Procalcitonin Urine Color Urine Appearance Urine pH Ur Specific [place] Urine Protein Urine Glucose (UA) Urine Ketones Urine Occult Blood Urine Nitrate Urine Bilirubin Urine Urobilinogen Ur Leukocyte Esterase Urine RBC Urine WBC Urine Bacteria Hyaline Casts Ur Culture Indicated? Ur Random Sodium Urine Creatinine Ethyl Alcohol < 10 SARS-CoV-2 (PCR) Influenza A (RT-PCR) Influenza B (RT-PCR) RSV (PCR) 03/12/22 03/12/22 03/12/22 05:55 05:55 08:26 WBC RBC Hgb Hct MCV MCH MCHC RDW Plt Count Neut % (Auto) Lymph % (Auto) [place] % (Auto) Eos % (Auto) Baso % (Auto) Neut # (Auto) Lymph # (Auto) [place] # (Auto) Eos # (Auto) Baso # (Auto) Sodium Potassium Chloride Carbon Dioxide BUN Creatinine Estimated GFR BUN/Creatinine Ratio Glucose Lactate 2.4 H Calcium Total Bilirubin AST ALT Alkaline Phosphatase Total Creatine Kinase CK-MB (CK-2) CK-MB (CK-2) Rel Index Troponin I NT-Pro-B Natriuret Pep Total Protein Albumin Globulin Albumin/Globulin Ratio Lipase Procalcitonin 0.87 H Urine Color Urine Appearance Urine pH Ur Specific [place] Urine Protein Urine Glucose (UA) Urine Ketones Urine Occult Blood Urine Nitrate Urine Bilirubin Urine Urobilinogen Ur Leukocyte Esterase Urine RBC Urine WBC Urine Bacteria Hyaline Casts Ur Culture Indicated? Ur Random Sodium Urine Creatinine Ethyl Alcohol SARS-CoV-2 (PCR) Negative Influenza A (RT-PCR) Flu a negative Influenza B (RT-PCR) Flu b negative RSV (PCR) Negative 03/12/22 03/12/22 03/12/22 11:40 11:40 11:40 WBC RBC Hgb Hct MCV MCH MCHC RDW Plt Count Neut % (Auto) Lymph % (Auto) [place] % (Auto) Eos % (Auto) Baso % (Auto) Neut # (Auto) Lymph # (Auto) [place] # (Auto) Eos # (Auto) Baso # (Auto) Sodium Potassium Chloride Carbon Dioxide BUN Creatinine Estimated GFR BUN/Creatinine Ratio Glucose Lactate 0.9 Calcium Total Bilirubin AST ALT Alkaline Phosphatase Total Creatine Kinase 384 H CK-MB (CK-2) 13.40 H CK-MB (CK-2) Rel Index 3.5 Troponin I 0.061 H NT-Pro-B Natriuret Pep 1160 H Total Protein Albumin Globulin Albumin/Globulin Ratio Lipase Procalcitonin Urine Color Urine Appearance Urine pH Ur Specific [place] Urine Protein Urine Glucose (UA) Urine Ketones Urine Occult Blood Urine Nitrate Urine Bilirubin Urine Urobilinogen Ur Leukocyte Esterase Urine RBC Urine WBC Urine Bacteria Hyaline Casts Ur Culture Indicated? Ur Random Sodium Urine Creatinine Ethyl Alcohol SARS-CoV-2 (PCR) Influenza A (RT-PCR) Influenza B (RT-PCR) RSV (PCR) Assessment & Plan Assessment and plan (1) Aortic valve stenosis, critical: Status: Acute Plan Sepsis with shock requiring pressors. Patient on Levophed. Patient has elevate d white blood cell count. Presumed source of infection is respiratory. Patient has a CT scan which shows pneumonia. Patient was started on broad-spectrum antibiotics in the emergency department oxygen as well as Levophed. Patient will be continued on Levophed he will be switched to Zosyn renally dosed at 3.75 mg Q 8 hours. He will be placed on Levophed to maintain a map greater than 80. And wean let us fed when possible. Aortic stenosis severe probably can attributing to patient's low blood pressure and shock picture. Maybe cardiac related as well. Discussed with patient previous hospitalization and this hospitalization about cardiac intervention. Patient is not sure that he would like cardiac interventions at this point. Will continue with fluids. Monitor closely for signs and symptoms of fluid overload. Normally on a beta-amilcar and AMIRAH inhibitor of course he is will be held at this point. Have to work on diuresis at some point as we have been giving him a lot of fluids to maintain blood pressure. Acute kidney injury on top of chronic renal failure. His creatinine is quite high. He is making good urine output now is previous in the ER was not. Will continue with IV fluids pressure support monitor kidney function and electrolyte abnormalities. Severe COPD no signs of acute exacerbation respiratory therapy per protocol with oxygen. He is not known to be a significant CO2 retainer. Provide nebulizer support poor RT protocol. Alcohol misuse. Previous hospitalization patient was withdrawal. Patient will be scheduled lorazepam. He says he has not drank for the last 5 days. Coronary artery disease chronic and stable recheck cardiac enzymes Morbid obesity BMI of 41 Hyperlipidemia on a statin VTE prophylaxis with Lovenox DNR status has been changed to do not resuscitate Time Spent With Patient Critical Care time: I spent a total of [] minutes of critical care time on this patient's care today; this time is exclusive of procedural time.
[2022-03-12 14:13] LABS: BUN Creatinine Ratio 26.4 (6-22); Blood Urea Nitrogen 101 mg/dL (9-20); Calcium 8.7 mg/dL (8.4-10.2); Carbon Dioxide 14 mmol/L (22-32); Chloride 111 mmol/L (98-107); Estimated Glomerular Filt Rate 15 mL/min (>60); Glucose 101 mg/dL (80-110); HEMOLYSIS 17 (0-50); Potassium 5.5 mmol/L (3.4-5.1); Sodium 137 mmol/L (137-145)
[2022-03-12] MEDS: ENOXAPARIN 30 MG/0.3 ML SYRINGE SUBCUT (15:17)
[2022-03-12] MEDS: PIPERACILLIN/TAZO 3.375 GM in SODIUM CHLORIDE 0.9% 100 ML IV (15:17)
[2022-03-12] MEDS: LACTATED RINGERS 1,000 ML 100 ML IV (15:18)
[2022-03-12] MEDS: NOREPINEPHRINE BITARTRATE/D5W 4 MG/250 ML PLAST..BAG 22.5 MG IV (16:44)
--- NOTE | 2022-03-12 20:11 | RT ---
attempted resp. consult and eval at 0811, pt is asleep at this time.
[2022-03-12] MEDS: ATORVASTATIN 20 MG TABLET PO (21:36)
[2022-03-12] MEDS: LORazepam 0.5 MG TABLET PO (21:36)
[2022-03-12] MEDS: HEPARIN 5,000 UNIT/ML VIAL 7500 UNIT SUBCUT (21:36)
[2022-03-12] MEDS: ALBUTEROL/IPRATROPIUM 3 ML AMPUL INH (22:30)
[2022-03-13] VITALS (36 sets, daily range): BP systolic 87–138; BP diastolic 50–94; PULSE 86–110; RESP 16–42; TEMP 36.3–37.4; O2SAT 76–100
[2022-03-13] MEDS: PIPERACILLIN/TAZO 3.375 GM in SODIUM CHLORIDE 0.9% 100 ML IV ×3 (02:01→22:37)
[2022-03-13] MEDS: NOREPINEPHRINE BITARTRATE/D5W 4 MG/250 ML PLAST..BAG 18.75 MG IV (03:39)
--- NOTE | 2022-03-13 04:35 | PC.NURSE ---
Able to wean levophed to 5 mcg. blood pressure between 88-105 systolic with acceptable map. Pt. not complaining of pain at present time, but needing help eating and setting up dinner tray. IV in lt. a/c removed without difficulty.
[2022-03-13 04:41] LABS: Alanine Aminotransferase 21 IU/L (<50); Albumin 2.8 g/dL (3.5-5.0); Alkaline Phosphatase 47 U/L (38-126); Aspartate Aminotransferase 70 IU/L (17-59); BUN Creatinine Ratio 28.9 (6-22); Bilirubin Total 0.7 mg/dL (0.2-1.3); Blood Urea Nitrogen 72 mg/dL (9-20); Calcium 8.6 mg/dL (8.4-10.2); Carbon Dioxide 17 mmol/L (22-32); Chloride 114 mmol/L (98-107); Estimated Glomerular Filt Rate 25 mL/min (>60); Globulin 2.8 g/dL (1.7-4.1); Glucose 129 mg/dL (80-110); HEMOLYSIS < 15 (0-50); Magnesium 1.5 mg/dL (1.6-2.3); Sodium 140 mmol/L (137-145); Total Protein 5.6 g/dL (6.3-8.2)
[2022-03-13 04:43] LABS: Add Manual Diff / Slide Review NO; Basophils Absolute Auto 100 /uL (0-100); Basophils Percent Auto 0.7 % (0-2); Eosinophils Absolute Auto 400 /uL (0-450); Eosinophils Percent Auto 2.5 % (2-4); Hematocrit 28.4 % (41-53); Hemoglobin 9.2 g/dL (13.5-17.5); Lymphocytes Absolute Auto 1400 /uL (1100-4500); Lymphocytes Percent Auto 8.7 % (25-40); Mean Corpuscular HGB Conc 32.6 % (30-36); Mean Corpuscular Hemoglobin 30.3 PG (26-34); Mean Corpuscular Volume 93.1 fL (80-100); Monocytes Absolute Auto 1100 /uL (0-900); Monocytes Percent Auto 7.2 % (3-14); Neutrophils Absolute Auto 12800 /uL (1500-7000); Neutrophils Percent Auto 80.9 % (50-75); Platelet Count 169 X10^3/uL (150-400); Red Blood Cell Count 3.05 X10^6/uL (4.5-5.9); Red Cell Distribution Width 14.5 % (11.6-14.8); White Blood Cell Count 15.8 X10^3/uL (4.5-11.0)
[2022-03-13 04:53] LABS: NT-proBNP (BNP-Adult 18+) 2210 pg/mL (<450)
--- NOTE | 2022-03-13 05:00 | DI.RAD.S_ITS ---
PROCEDURE: XR CHEST 1V INDICATIONS: pnumioina TECHNIQUE: One view of the chest was acquired. COMPARISON: [facility], CR, XR CHEST FOR PICC 1V, 03/12/2022, 10:54. FINDINGS: Surgical changes and devices: Left upper extremity PICC is unchanged in positioning. Multiple surgical clips project over the mediastinum. Lungs and pleura: Mild diffuse interstitial prominence. Minimal streaky right basilar opacities. Persistent patchy left basilar consolidations. No pneumothorax seen. Possible small left pleural effusion. Mediastinum: Mediastinal contours appear normal. Heart size is normal. Bones and chest wall: No suspicious bony lesions. Overlying soft tissues appear unremarkable. IMPRESSION: Stable positioning of left upper extremity PICC. Stable appearance of patchy left basilar consolidations compatible with reported history of pneumonia. Recommend follow up chest radiograph 4-6 weeks after treatment to document resolution of findings and/or return to baseline examination. Dictated by: Marshal Gary M.D. on 03/13/2022 at 9:16 Approved by: Marshal Gary M.D. on 03/13/2022 at 9:18
[2022-03-13] MEDS: HEPARIN 5,000 UNIT/ML VIAL 7500 UNIT SUBCUT ×3 (05:16→20:51)
[2022-03-13 05:20] LABS: Troponin I 0.123 ng/mL (0.01-0.034)
--- NOTE | 2022-03-13 07:29 | P.PN_ITS ---
Subjective Subjective Date Patient Seen: 03/13/22 Time Patient Seen: 07:29 Interval history: Todd said he had a good night last night said he slept well. Had a little bit of back pain. Says he is weak and short of breath. Says he would like to get up and out of bed. She said he would prefer not to go back to a [facility] but understands if he has to. Said they provide a good care there he did not like the food. We updated on his health condition. He is still a no code. Kidney functions looking better white blood cell counts improved blood pressure still little bit low. Cardiac enzymes are elevated and concerning significant aortic stenosis. Exam Vital Signs (past 8 hours): - 03/12/22 23:40 03/12/22 23:30 03/12/22 23:30 Temperature Pulse Rate 90 Respiratory Rate 24 Blood Pressure 97/53 L Pulse Oximetry 97 Oxygen Delivery Method Nasal Cannula Oxygen Flow Rate 03/13/22 00:00 03/13/22 00:00 03/13/22 00:30 Temperature 97.5 F L Pulse Rate 91 H Respiratory Rate 18 Blood Pressure 87/50 L 87/51 L Pulse Oximetry 95 Oxygen Delivery Method Oxygen Flow Rate 3 03/13/22 00:30 03/13/22 01:00 03/13/22 01:00 Temperature Pulse Rate 91 H 90 Respiratory Rate 16 18 Blood Pressure 95/53 L Pulse Oximetry 96 96 Oxygen Delivery Method Oxygen Flow Rate 3 03/13/22 01:30 03/13/22 01:30 03/13/22 02:00 Temperature Pulse Rate 88 Respiratory Rate 18 Blood Pressure 97/55 L 102/54 L Pulse Oximetry 95 Oxygen Delivery Method Oxygen Flow Rate 03/13/22 02:00 03/13/22 03:55 03/13/22 02:30 Temperature Pulse Rate 88 Respiratory Rate 20 Blood Pressure 104/53 L Pulse Oximetry 95 Oxygen Delivery Method Nasal Cannula Oxygen Flow Rate 3 03/13/22 02:30 03/13/22 03:00 03/13/22 03:00 Temperature Pulse Rate 87 86 Respiratory Rate 16 18 Blood Pressure 109/56 L Pulse Oximetry 96 97 Oxygen Delivery Method Oxygen Flow Rate 3 03/13/22 03:30 03/13/22 03:30 03/13/22 04:00 Temperature Pulse Rate 86 Respiratory Rate 17 Blood Pressure 111/56 L 105/53 L Pulse Oximetry 97 Oxygen Delivery Method Oxygen Flow Rate 3 03/13/22 04:00 03/13/22 04:30 03/13/22 04:30 Temperature 97.3 F L Pulse Rate 87 86 Respiratory Rate 16 22 Blood Pressure 106/55 L Pulse Oximetry 97 97 Oxygen Delivery Method Oxygen Flow Rate 03/13/22 05:00 03/13/22 05:00 03/13/22 05:30 Temperature Pulse Rate 86 Respiratory Rate 25 H Blood Pressure 103/53 L 102/50 L Pulse Oximetry 97 Oxygen Delivery Method Oxygen Flow Rate 3 03/13/22 05:30 03/13/22 06:00 03/13/22 06:00 Temperature Pulse Rate 87 88 Respiratory Rate 42 H 30 H Blood Pressure 102/56 L Pulse Oximetry 97 98 Oxygen Delivery Method Oxygen Flow Rate 3 Fraction of Inspired Oxygen 32 SaO2/FiO2 Ratio 290 Oxygen Delivery Method Nasal Cannula Oxygen Flow Rate 3 Narrative Exam Narrative: Gen.: Alert good historian HEENT: Pupils equal round and reactive or mucosa is moist neck is supple Cardio: S1-S2 regular rate and rhythm Respiratory: Lungs show rhonchorous breath sounds. Abdomen: Soft nontender no rebound or guarding no liver spleen enlargement no appreciable hernias Extremities: Some lower extremity edema Neurologic: Grossly intact. Objective Labs Result Diagrams: 03/13/22 04:00 03/13/22 04:00 Labs: Laboratory Results - last 24 hr 03/12/22 03/12/22 03/12/22 02:50 02:50 08:26 WBC RBC Hgb Hct MCV MCH MCHC RDW Plt Count Neut % (Auto) Lymph % (Auto) [place] % (Auto) Eos % (Auto) Baso % (Auto) Neut # (Auto) Lymph # (Auto) [place] # (Auto) Eos # (Auto) Baso # (Auto) Sodium Potassium Chloride Carbon Dioxide BUN Creatinine Estimated GFR BUN/Creatinine Ratio Glucose Lactate Calcium Magnesium Total Bilirubin AST ALT Alkaline Phosphatase Total Creatine Kinase CK-MB (CK-2) CK-MB (CK-2) Rel Index Troponin I NT-Pro-B Natriuret Pep Total Protein Albumin Globulin Albumin/Globulin Ratio Urine Color Yellow Urine Appearance Clear Urine pH 5.0 Ur Specific [place] >=1.030 H Urine Protein 1+ H Urine Glucose (UA) Trace H Urine Ketones Negative Urine Occult Blood Negative Urine Nitrate Negative Urine Bilirubin Negative Urine Urobilinogen 0.2 Ur Leukocyte Esterase Negative Urine RBC None seen Urine WBC None seen Urine Bacteria None seen Hyaline Casts 1-5/lpf Ur Culture Indicated? Cult not indicated Ur Random Sodium 26 L Urine Creatinine 339.8 Nasal Screen MRSA (PCR) SARS-CoV-2 (PCR) Negative Influenza A (RT-PCR) Flu a negative Influenza B (RT-PCR) Flu b negative RSV (PCR) Negative 03/12/22 03/12/22 03/12/22 11:40 11:40 11:40 WBC RBC Hgb Hct MCV MCH MCHC RDW Plt Count Neut % (Auto) Lymph % (Auto) [place] % (Auto) Eos % (Auto) Baso % (Auto) Neut # (Auto) Lymph # (Auto) [place] # (Auto) Eos # (Auto) Baso # (Auto) Sodium Potassium Chloride Carbon Dioxide BUN Creatinine Estimated GFR BUN/Creatinine Ratio Glucose Lactate 0.9 Calcium Magnesium Total Bilirubin AST ALT Alkaline Phosphatase Total Creatine Kinase 384 H CK-MB (CK-2) 13.40 H CK-MB (CK-2) Rel Index 3.5 Troponin I 0.061 H NT-Pro-B Natriuret Pep 1160 H Total Protein Albumin Globulin Albumin/Globulin Ratio Urine Color Urine Appearance Urine pH Ur Specific [place] Urine Protein Urine Glucose (UA) Urine Ketones Urine Occult Blood Urine Nitrate Urine Bilirubin Urine Urobilinogen Ur Leukocyte Esterase Urine RBC Urine WBC Urine Bacteria Hyaline Casts Ur Culture Indicated? Ur Random Sodium Urine Creatinine Nasal Screen MRSA (PCR) SARS-CoV-2 (PCR) Influenza A (RT-PCR) Influenza B (RT-PCR) RSV (PCR) 03/12/22 03/12/22 03/13/22 11:40 15:44 04:00 WBC 15.8 H RBC 3.05 L Hgb 9.2 L Hct 28.4 L MCV 93.1 MCH 30.3 MCHC 32.6 RDW 14.5 Plt Count 169 Neut % (Auto) 80.9 H Lymph % (Auto) 8.7 L [place] % (Auto) 7.2 Eos % (Auto) 2.5 Baso % (Auto) 0.7 Neut # (Auto) 33138 H Lymph # (Auto) 1400 [place] # (Auto) 1100 H Eos # (Auto) 400 Baso # (Auto) 100 Sodium 137 Potassium 5.5 H Chloride 111 H Carbon Dioxide 14 L BUN 101 H Creatinine 3.82 H Estimated GFR 15 L BUN/Creatinine Ratio 26.4 H Glucose 101 Lactate Calcium 8.7 Magnesium Total Bilirubin AST ALT Alkaline Phosphatase Total Creatine Kinase CK-MB (CK-2) CK-MB (CK-2) Rel Index Troponin I NT-Pro-B Natriuret Pep Total Protein Albumin Globulin Albumin/Globulin Ratio Urine Color Urine Appearance Urine pH Ur Specific [place] Urine Protein Urine Glucose (UA) Urine Ketones Urine Occult Blood Urine Nitrate Urine Bilirubin Urine Urobilinogen Ur Leukocyte Esterase Urine RBC Urine WBC Urine Bacteria Hyaline Casts Ur Culture Indicated? Ur Random Sodium Urine Creatinine Nasal Screen MRSA (PCR) Positive for mrsa H SARS-CoV-2 (PCR) Influenza A (RT-PCR) Influenza B (RT-PCR) RSV (PCR) 03/13/22 04:00 WBC RBC Hgb Hct MCV MCH MCHC RDW Plt Count Neut % (Auto) Lymph % (Auto) [place] % (Auto) Eos % (Auto) Baso % (Auto) Neut # (Auto) Lymph # (Auto) [place] # (Auto) Eos # (Auto) Baso # (Auto) Sodium 140 Potassium 5.0 Chloride 114 H Carbon Dioxide 17 L BUN 72 H Creatinine 2.49 H Estimated GFR 25 L BUN/Creatinine Ratio 28.9 H Glucose 129 H Lactate Calcium 8.6 Magnesium 1.5 L Total Bilirubin 0.7 AST 70 H ALT 21 Alkaline Phosphatase 47 Total Creatine Kinase CK-MB (CK-2) CK-MB (CK-2) Rel Index Troponin I 0.123 H* NT-Pro-B Natriuret Pep 2210 H Total Protein 5.6 L Albumin 2.8 L Globulin 2.8 Albumin/Globulin Ratio 1.0 Urine Color Urine Appearance Urine pH Ur Specific [place] Urine Protein Urine Glucose (UA) Urine Ketones Urine Occult Blood Urine Nitrate Urine Bilirubin Urine Urobilinogen Ur Leukocyte Esterase Urine RBC Urine WBC Urine Bacteria Hyaline Casts Ur Culture Indicated? Ur Random Sodium Urine Creatinine Nasal Screen MRSA (PCR) SARS-CoV-2 (PCR) Influenza A (RT-PCR) Influenza B (RT-PCR) RSV (PCR) [facility] Medical History Acute respiratory failure with hypoxia Chronic back pain (~1959) COPD (chronic obstructive pulmonary disease) Gout (~2011) History of urinary incontinence Lung cancer (~2007) Moderate aortic stenosis by prior echocardiogram Pancreatitis (~2005) Vision disorder Surgical History Anesthesia History of lung surgery (~03/2007) Family History Father Heart disease Grandmother Age: 82 Ovarian cancer, unspecified laterality Mother Diabetes mellitus Sister No problems noted. Social History marital status: household members: friend(s) Smoking Status: Current every day smoker alcohol intake: current substance use type: does not use Assessment & Plan Assessment and plan (1) Cardiogenic shock: Status: Acute (2) Aortic valve stenosis, critical: Status: Acute (3) Acute alteration in mental status: Status: Acute (4) Acute renal failure superimposed on chronic kidney disease: Qualifiers: Acute renal failure type: unspecified Chronic kidney disease stage: stage 3 (moderate) Chronic kidney disease stage 3 subtype: stage 3b (GFR 30-44) Qualified Code(s): N17.9 - Acute kidney failure, unspecified; N18.32 - Chronic kidney disease, stage 3b Status: Acute Plan Sepsis with septic shock requiring Levophed. Patient's blood pressure is improving still little bit low today. Received IV fluids yesterday. Source is probably pneumonia. Patient is on Zosyn. Patient's white blood cell counts improving. Respiratory status is stable. Continue with the respiratory therapy nebulizers and oxygen and IV antibiotics. Try to wean down pressors support and decrease IV fluids. Severe aortic stenosis. Significant contributing factor for probably 2 his condition is of weakness and shortness of breath and hypotension. Will see if we can get Cardiology to come in today to see if they have any suggestions on further medical management. Patient may not be excited about cardiac surgery. Type 2 myocardial infarction. Patient has elevated cardiac enzymes. Combination of infection ischemia due to demand low blood pressure etcetera. Trending cardiac enzymes beta-blockers on hold at this point because of low blood pressure. Place on anti-platelet. Acute kidney injury on top of chronic renal failure. Patient had significant Ton knee injury with decreased urine output. Due to combination of low blood pressure infection etc. He is having good urine output now. Kidney function is improving. Monitoring closely electrolytes. Decrease IV hydration hydration and encourage oral fluids. Spiculated right upper lobe mass suspicious for neoplasm although possible infection. Patient has a history of lung cancer with partial lung removal. Still smoking. Certainly complicates his significant healthcare problems and critical nature of his medical conditions. COPD severe without current exacerbation continue with nebulizer treatment oxygen and antibiotics. Alcohol misuse disorder recent hospitalization patient went through acute alcohol withdrawal. The scheduled lorazepam. Coronary artery disease. Elevated cardiac enzymes this morning. On a statin we will add back in an anti-platelet. Beta-amilcar on hold because of low blood pressure. Morbid obesity with a BMI of 41 Hyperlipidemia on a statin VTE prophylaxis with Lovenox Disposition and plan. Long discussion with patient today about his current complicated and medically complex health situation with severe aortic stenosis concerning lesion on his right upper lung kidney failure and sepsis. Talk to him about his long-term care wishes and goals. He would like to meet with Cardiology to discuss options as far as aortic stenosis I think this is most current critical condition see if there is something that can be done there. He is not interested in doing significant cardiac interventions. But would like to discuss options. Will have him work with physical therapy today. Work on decreasing Levophed. Time Spent With Patient Critical Care time: I spent a total of [] minutes of critical care time on this patient's care today; this time is exclusive of procedural time.
[2022-03-13] MEDS: PANTOPRAZOLE DR 40 MG TABLET PO (07:52)
[2022-03-13] MEDS: LACTATED RINGERS 1,000 ML 100 ML IV (07:53)
[2022-03-13] MEDS: LORazepam 0.5 MG TABLET PO ×3 (09:14→20:51)
[2022-03-13] MEDS: ASPIRIN 325 MG TABLET PO (09:14)
[2022-03-13] MEDS: BUDESONIDE 0.5 MG/2 ML NEB INH ×2 (09:44→20:20)
[2022-03-13] MEDS: ALBUTEROL 2.5 MG/3 ML NEB (ADULT) INH ×4 (09:44→22:25)
--- NOTE | 2022-03-13 12:03 | PT.IIE ---
Current Diagnoses Nonrheumatic aortic (valve) stenosis (03/12/22) Acute kidney failure, unspecified (03/12/22) Chronic kidney disease, stage 3b (03/12/22) Altered mental status, unspecified (03/12/22) Cardiogenic shock (03/12/22) Surgical History (Last Reviewed 03/12/22 @ 13:43 by Jeffrey Jennings MD) Anesthesia History of lung surgery (~03/2007) Medical History (Last Reviewed 03/12/22 @ 13:43 by Jeffrey Jennings MD) Acute respiratory failure with hypoxia Chronic back pain (~1959) COPD (chronic obstructive pulmonary disease) Gout (~2011) History of urinary incontinence Lung cancer (~2007) Moderate aortic stenosis by prior echocardiogram Pancreatitis (~2005) Vision disorder Physical Therapy Inpatient Evaluation/Re-Eval M1 PT/OT-IP Prior Functional Status Start: 03/13/22 11:47 Freq: Status: Active Protocol: Document 03/13/22 11:49 BC (Rec: 03/13/22 12:03 [id number]) Medical Review Prior Functional Status Medical History Reviewed Yes Mobility and Gait Pt uses a walker or SPC at baseline. He has occasional need for help with bed mobility and self care ADLs. Activities of Daily Living and IADL's Assist from partner with ADLs Prior Functional Level (Other details) Home for 2 weeks from SNF rehab stay. Uses 4WW or SPC at all times. Partner, Leeanna, assists with ADLs in the home. Social History Household Members friend(s) Living Arrangements House Number of Floors (Floors) One Floor Number of Stairs To Enter/Railing? 4 steps with railing on R during ascent Home Environment Walk in Shower,Built-In Shower Seat Home Equipment Four Wheel Walker,Straight Cane,Hand Held Shower,Grab Bars Near Toilet,Grab Bars In Shower M2 PT-IP Current Condition Start: 03/13/22 11:47 Freq: Status: Active Protocol: Document 03/13/22 11:49 BC (Rec: 03/13/22 12:03 [id number]) Physical Therapy Current Condition Current Condition Evaluation Date 03/13/22 Treatment Diagnosis sepsis; difficulty with ambulation, difficulty with transfers Onset Date 03/11/22 M3 PT-IP Subjective Start: 03/13/22 11:47 Freq: Status: Active Protocol: Document 03/13/22 11:49 BC (Rec: 03/13/22 12:03 [id number]) Subjective Physical Therapy Visit Type Type Initial Evaluation Visit Start Time 11:10 Visit Stop Time 11:45 Total Visit Minutes 35 Physical Therapy Visit Comments Patient Comments Pt reporting pain in hip in supine position, wants to sit EOB Patient Goals To be strong enough to go home vs going to SNF Therapy Pain Assessment Pain When Pain Assessed At Rest Pain Present Pain Present Pain Reported Location Back Intensity 8 Pain Behaviors Calling Out Pain Management Techniques Re-positioning M4 PT-IP Mobility and Gait Start: 03/13/22 11:47 Freq: Status: Active Protocol: Document 03/13/22 11:49 BC (Rec: 03/13/22 12:03 [id number]) PT-Bed Mobility Assessment Rolling Type of Rolling Roll to Left Level of Assist Minimal Assistance Supine to Sit Supine to Sit Maximum Assistance Sit to Supine Sit to Supine Maximum Assistance,2 Person Assistance Scooting Scooting to Edge of Bed Minimal Assistance Scooting Up and Down in Bed Dependent PT-Transfer Assessment Sit to and From Stand Sit to and from Stand Moderate Assistance,2 Person Assistance Equipment Transfer Assistive Device Gait Belt,Front Wheeled Walker Transfers Transfer Destination Bed Transfer Ability Level of Assist Moderate Assistance Comments Mobility Comments side steps 3x with seated rest breaks in between due to fatigue. Mod assist to maintain balance, hip extension assist, and assist of mobilizing walker. Gait Assessment Comments Gait Comments Unable to ambulate on eval due to weakness Stair Climbing Assessment Comments Stair Climbing Comments Unable due to weakness PT-Balance Assessment Sitting Balance and Reactions Static Sitting Balance Ability Good Dynamic Sitting Balance Ability Fair Standing Balance and Reactions Static Standing Balance Ability Poor Dynamic Standing Balance Ability Poor M5 PT-IP Objective Assessments Start: 03/13/22 11:47 Freq: Status: Active Protocol: Document 03/13/22 11:49 BC (Rec: 03/13/22 12:03 [id number]) Orientation Orientation/Cognition Level of Alertness Alert Orientation Name,Date,Place,Situation Strength Upper Extremity Strength Assessment Bilaterally Impaired Shoulder 3+ to 4/5 Elbow 4/5 Lower Extremity Strength Assessment Bilaterally Impaired Hip 3+ to 4/5 Knee 3+ to 4/5 Ankle 3+ to 4/5 Comments Strength Comments Prior hx of hip pain with radiculopathy into LLE. Sensation Assessment Sensation Light Touch Impaired M6 PT-IP Treatment Start: 03/13/22 11:47 Freq: Status: Active Protocol: Document 03/13/22 11:49 BC (Rec: 03/13/22 12:03 BC [id number]) Physical Therapy Treatment Education Education Provided Safety M7 PT-IP Assessment and Plan Start: 03/13/22 11:47 Freq: Status: Active Protocol: Document 03/13/22 11:49 BC (Rec: 03/13/22 12:03 BC [id number]) PT Summary Assessment and Plan Potential Rehabilitation Potential Good Status of Condition at Evaluation Evolving Summary Impairments Pain,ROM,Strength,Balance, Coordination,Bed Mobility, Transfers,Gait,Activity Tolerance Progress Towards Goals Progressing Toward Goals Assessment Summary Pt admitted from home with sepsis and fall out of bed. He was previously hospitalized here 1 mo ago. Spent 2 weeks at SNF for rehab and has been home for 2 weeks. Pt and partner, Leeanna, are providing hx. Leeanna and Pt states he uses a 4WW or SPC for ambulation. He does the steps to enter his home and bed mobility with SBA/CGA of Leeanna . Otherwise he is independent with mobility. CLOF: Pt requiring max assist with bed mobility and use of hospital bed to assist in positioning. He is requiring mod A x2 people to stand and take a few lateral side steps along EOB, which required 2 seated rest breaks. Pt is reporting significant acute BLE foot pain on plantar surfaces when standing. 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 He confirms a prior hx of gout. Therapist notified [facility] of this. Significant BUE tremulousness that increases with tasks like standing. Pt and Leeanna report this is pre- existing. Recommend d/c to SNF due to level of assist needed for bed mobility and transfers. Pt is not yet ambulatory more likely due to reports of BLE foot pain. Goals Bed Mobility Goal Contact Guard Assistance Transfer Goal Contact Guard Assistance Gait Goal Contact Guard Assistance Gait Distance 75 Other Goals Ascend/descend 4-5 steps with railing and CGA Days to Meet Goals 4 Frequency of Treatment Frequency Of Treatment Once a Day Treatment Plan Physical Therapy Treatment Plan Bed Mobility Training,Transfer Training,Gait Training, Therapeutic Exercise,Balance Retraining,Discharge Planning, Neuromuscular Re-ed Precautions Other Precautions Cardiac Supplemental O2 Recommendations To Nursing Amount of Assist Needed Mechanical Lift Discharge Recommendations PT Discharge Recommendations SNF Rehab Transportation Needs at Discharge Wheelchair/Cabulance
[2022-03-13] MEDS: HYDROCODONE/ACET 5/325 TABLET 1 TAB PO (12:24)
--- NOTE | 2022-03-13 15:46 | CM.DANOTE ---
DCP Assessment: Patient is an 86 yr old male who is here for sepsis. Patient currently lives here in [place] with his live games dealer. Patient was at [facility] and DC home two weeks ago . CM called and LVM with august to see if she would consider taking patient back if he needed SNF. CM team will follow up with August tomorrow. CM attempted to get talk with the patient about DC planning however he was feeling short of breath and not up to talking and asked if CM could come back tomorrow. CM team will follow up tomorrow. however patient did state he is open to going back to SNF if he needs to but would prefer home with his caregiver and HH if possible. I: Medicare and [employer] P: CM team will follow up in the AM to get more information and detailed planning for DC. however patient is open to home with HH as first plan and plan B is SNF - called AUGUST and LVM at [facility] to see if they can accept the Patient back at DC if he needs SNF. Gail Adler RNassistant operations manager Discharge Planning/Care Management Discharge Assessment Start: 03/13/22 15:42 Freq: Status: Active Protocol: Document 03/13/22 15:42 HS (Rec: 03/13/22 15:46 HS [id number]) Discharge Planning Assessment Assigned Mobile Service Rv Technician Gail Adler RNaircraft structure mechanic Advance Directives? Yes Advance Directives on File Yes History Provided By Patient,Medical Record Comment preference would be home with his live-in caregiver and HH but would consider SNF pending his progress. Prior Living Arrangements House Household Members friend(s) Independent with ADL's Yes Is patient alert and oriented? Yes Needs Assistance With Home Chores / Shopping Comment resides in [place] with caregiver who takes care of cooking, cleaning and any needs that arise. Patient is independent with ADLs at baseline and uses a FWW. Patient has O2 and inhaler at home per EMR. Patient states he drives. DME Already Rented / Owned FWW / Walker Patient/Family Preference Fpc Facility,Home with Home Health Comment SNF Vs home with HH to be determined Comment Home w/significant other and outpatient PT, good candidate for cardiopulmonary rehab and home O2 per notes Discharge Plan Home Transportation Arrangement Friend Chacorta Updated in Patient Room with Yes name and ext. # of Mobile Service Rv Technician Review Status In Process Next Review Type Continued Stay Review
[2022-03-13] MEDS: predniSONE 20 MG TABLET 40 MG PO (17:00)
[2022-03-13] MEDS: ATORVASTATIN 20 MG TABLET PO (20:51)
[2022-03-14] VITALS (9 sets, daily range): BP systolic 107–110; BP diastolic 55–81; PULSE 74–101; RESP 14–24; TEMP 36.6–37; O2SAT 94–98
[2022-03-14] MEDS: PANTOPRAZOLE DR 40 MG TABLET PO (05:45)
[2022-03-14] MEDS: PIPERACILLIN/TAZO 3.375 GM in SODIUM CHLORIDE 0.9% 100 ML IV ×3 (05:45→22:32)
[2022-03-14] MEDS: HEPARIN 5,000 UNIT/ML VIAL 7500 UNIT SUBCUT ×3 (05:46→21:03)
[2022-03-14 06:25] LABS: Alanine Aminotransferase 22 IU/L (<50); Albumin 2.8 g/dL (3.5-5.0); Alkaline Phosphatase 45 U/L (38-126); Aspartate Aminotransferase 71 IU/L (17-59); BUN Creatinine Ratio 30.8 (6-22); Bilirubin Total 0.6 mg/dL (0.2-1.3); Blood Urea Nitrogen 65 mg/dL (9-20); Calcium 8.6 mg/dL (8.4-10.2); Carbon Dioxide 20 mmol/L (22-32); Chloride 114 mmol/L (98-107); Estimated Glomerular Filt Rate 30 mL/min (>60); Globulin 2.7 g/dL (1.7-4.1); Glucose 132 mg/dL (80-110); HEMOLYSIS < 15 (0-50); Sodium 139 mmol/L (137-145); Total Protein 5.5 g/dL (6.3-8.2)
[2022-03-14 06:36] LABS: Troponin I 0.069 ng/mL (0.01-0.034)
[2022-03-14 06:45] LABS: Basophils Absolute Auto 0 /uL (0-100); Basophils Percent Auto 0.3 % (0-2); Eosinophils Absolute Auto 200 /uL (0-450); Eosinophils Percent Auto 1.8 % (2-4); Hematocrit 20.3 % (41-53); Lymphocytes Absolute Auto 600 /uL (1100-4500); Lymphocytes Percent Auto 5.1 % (25-40); Mean Corpuscular HGB Conc 32.7 % (30-36); Mean Corpuscular Hemoglobin 30.4 PG (26-34); Monocytes Absolute Auto 1200 /uL (0-900); Monocytes Percent Auto 10.3 % (3-14); Neutrophils Absolute Auto 9300 /uL (1500-7000); Neutrophils Percent Auto 82.5 % (50-75); Platelet Count 157 X10^3/uL (150-400); Red Blood Cell Count 2.19 X10^6/uL (4.5-5.9); Red Cell Distribution Width 14.1 % (11.6-14.8); White Blood Cell Count 11.3 X10^3/uL (4.5-11.0)
[2022-03-14 06:47] LABS: Potassium 5.5 mmol/L (3.4-5.1)
[2022-03-14 06:50] LABS: Add Manual Diff / Slide Review SLIDE REVIEW; Hemoglobin 6.7 g/dL (13.5-17.5)
[2022-03-14 07:07] LABS: INR 1.2 (0.9-1.3); Prothrombin Time 13.4 SECONDS (10.1-12.7)
[2022-03-14 07:51] LABS: Rouleaux 2+
[2022-03-14] MEDS: BUDESONIDE 0.5 MG/2 ML NEB INH ×2 (08:03→19:26)
[2022-03-14] MEDS: ALBUTEROL 2.5 MG/3 ML NEB (ADULT) INH ×5 (08:03→22:51)
[2022-03-14] MEDS: FUROSEMIDE 40 MG/4 ML VIAL IV ×2 (08:10→14:40)
[2022-03-14] MEDS: ASPIRIN 325 MG TABLET PO (08:25)
[2022-03-14] MEDS: LORazepam 0.5 MG TABLET PO ×3 (08:25→21:03)
[2022-03-14] MEDS: predniSONE 20 MG TABLET 40 MG PO (08:25)
[2022-03-14 08:28] LABS: Hematocrit 24.7 % (41-53); Hemoglobin 8.1 g/dL (13.5-17.5)
--- NOTE | 2022-03-14 09:44 | PM.PN.1 ---
Subjective Subjective Date Patient Seen: 03/14/22 Time Patient Seen: 09:44 Interval history: Patient did well today says he is feeling better ready to go home. Although still requires 3 person assistance in very very weak. Says senior living he was previously at was good all of the food was not what he liked. Vital signs have been stable overnight he is off Levophed drip. Respiratory status has been stable. Laboratory testings have been improving although he was anemic on his blood draw this morning which was repeated which was much more normal. Exam Vital Signs (past 8 hours): - 03/14/22 04:00 03/14/22 08:03 03/14/22 08:10 Temperature 98.6 F Pulse Rate 78 74 78 Respiratory Rate 14 18 20 Blood Pressure 107/55 L Pulse Oximetry 95 97 Oxygen Flow Rate 3 2 Fraction of Inspired Oxygen 28 SaO2/FiO2 Ratio 332 Oxygen Delivery Method Nasal Cannula Oxygen Flow Rate 2 Narrative Exam Narrative: Gen.: Alert good historian some mild tremors. Elderly obese male who is quite weak HEENT: Pupils equal round and reactive or mucosa is moist Cardio: S1-S2 systolic murmur present Respiratory: Rhonchorous breath sounds throughout mild increased work of breathing Abdomen: Soft nontender no rebound or guarding no liver spleen enlargement no appreciable hernias Extremities: Some lower extremity edema warm dry perfused Neurologic: Grossly intact. Objective Labs Result Diagrams: 03/14/22 Unknown 03/14/22 05:00 Labs: Laboratory Results - last 24 hr 03/14/22 03/14/22 03/14/22 05:00 05:00 05:00 WBC 11.3 H RBC 2.19 L Hgb 6.7 L* Hct 20.3 L* MCV 93.0 MCH 30.4 MCHC 32.7 RDW 14.1 Plt Count 157 Neut % (Auto) 82.5 H Lymph % (Auto) 5.1 L [place] % (Auto) 10.3 Eos % (Auto) 1.8 L Baso % (Auto) 0.3 Neut # (Auto) 9300 H Lymph # (Auto) 600 L [place] # (Auto) 1200 H Eos # (Auto) 200 Baso # (Auto) 0 RBC Morphology Not Reportable Rouleaux 2+ H PT 13.4 H INR 1.2 Sodium 139 Potassium 5.5 H Chloride 114 H Carbon Dioxide 20 L BUN 65 H Creatinine 2.11 H Estimated GFR 30 L BUN/Creatinine Ratio 30.8 H Glucose 132 H Calcium 8.6 Total Bilirubin 0.6 AST 71 H ALT 22 Alkaline Phosphatase 45 Troponin I 0.069 H Total Protein 5.5 L Albumin 2.8 L Globulin 2.7 Albumin/Globulin Ratio 1.0 03/14/22 Unknown WBC RBC Hgb 8.1 L Hct 24.7 L MCV MCH MCHC RDW Plt Count Neut % (Auto) Lymph % (Auto) [place] % (Auto) Eos % (Auto) Baso % (Auto) Neut # (Auto) Lymph # (Auto) [place] # (Auto) Eos # (Auto) Baso # (Auto) RBC Morphology Rouleaux PT INR Sodium Potassium Chloride Carbon Dioxide BUN Creatinine Estimated GFR BUN/Creatinine Ratio Glucose Calcium Total Bilirubin AST ALT Alkaline Phosphatase Troponin I Total Protein Albumin Globulin Albumin/Globulin Ratio [facility] Medical History Acute respiratory failure with hypoxia Chronic back pain (~1959) COPD (chronic obstructive pulmonary disease) Gout (~2011) History of urinary incontinence Lung cancer (~2007) Moderate aortic stenosis by prior echocardiogram Pancreatitis (~2005) Vision disorder Surgical History Anesthesia History of lung surgery (~03/2007) Family History Father Heart disease Grandmother Age: 82 Ovarian cancer, unspecified laterality Mother Diabetes mellitus Sister No problems noted. Social History marital status: household members: friend(s) Smoking Status: Current every day smoker alcohol intake: current substance use type: does not use Assessment & Plan Assessment and plan (1) Aortic valve stenosis, critical: Status: Acute (2) Septic shock: Status: Acute Plan Sepsis with septic shock requiring Levophed.? Levophed has been stopped blood pressure is much more stable today. Continue with IV Zosyn. Most logical source is infection from respiratory and pneumonia. Urinalysis is negative blood cultures negative prostate exam done in the emergency department shows no signs of acute infection continue with IV antibiotics Severe aortic stenosis.? Consult with Cardiology yesterday about his aortic stenosis reviewed echocardiogram with them. They feel like his aortic stenosis is more moderate than severe. Do not feel like he needs acute surgical correction of this at this point. Feels like more his ischemia and demand is due to his septic shock then significant aortic stenosis Type 2 myocardial infarction.? Due to demand ischemia chronic kidney disease troponins are stabilizing at this point no significant chest pain. Acute kidney injury on top of chronic renal failure.? Kidney functioning continuing to improve at this point. Creatinine is now 2.1. Patient has some mild electrolyte abnormalities which will be addressing. Fluid overload. Due to underlying sepsis volume to help blood pressure support patient is little fluid overloaded. Has some delusional anemia and some electrolyte imbalances will provide Lasix today IV 2 doses re-evaluate with laboratory tests and fluid status tomorrow may need some additional Lasix tomorrow. Hyperkalemia. Provide IV Lasix this morning and this afternoon to help reduce potassium and fluid overload Spiculated right upper lobe mass suspicious for neoplasm although possible infection.? Patient has a history of lung cancer with partial lung removal.? Still smoking.? Patient is aware and this will need further workup and evaluation as an outpatient. COPD severe without current exacerbation continue with nebulizer treatment oxygen and antibiotics. Alcohol misuse disorder recent hospitalization patient went through acute alcohol withdrawal.? The scheduled lorazepam. No current signs or symptoms of acute withdrawal Coronary artery disease.? Consider restarting beta-amilcar Morbid obesity with a BMI of 41 Hyperlipidemia on a statin VTE prophylaxis with Lovenox Disposition and plan.? Patient improving. Diuresis today with Lasix to help fluid overload and treating of hyperkalemia some mild delusional anemia as well. Disposition plan work with physical therapy discharge to custodial Thursday or Thursday..? Time Spent With Patient Critical Care time: I spent a total of [] minutes of critical care time on this patient's care today; this time is exclusive of procedural time.
--- NOTE | 2022-03-14 13:15 | OT.IP.EVAL ---
Current Diagnoses Sepsis, unspecified organism (03/12/22) Nonrheumatic aortic (valve) stenosis (03/12/22) Acute kidney failure, unspecified (03/12/22) Chronic kidney disease, stage 3b (03/12/22) Altered mental status, unspecified (03/12/22) Cardiogenic shock (03/12/22) Severe sepsis with septic shock (03/12/22) Past Medical History (Last Reviewed 03/12/22 @ 13:43 by Jeffrey Jennings MD) Acute respiratory failure with hypoxia Chronic back pain (~1959) COPD (chronic obstructive pulmonary disease) Gout (~2011) History of urinary incontinence Lung cancer (~2007) Moderate aortic stenosis by prior echocardiogram Pancreatitis (~2005) Vision disorder Surgical History (Last Reviewed 03/12/22 @ 13:43 by Jeffrey Jennings MD) Anesthesia History of lung surgery (~03/2007) Occupational Therapy Inpatient Evaluation/Re-Eval M1 PT/OT-IP Prior Functional Status Start: 03/13/22 11:47 Freq: Status: Active Protocol: Document 03/14/22 12:30 [facility] (Rec: 03/14/22 18:47 [facility] [id number]) Medical Review Prior Functional Status Medical History Reviewed Yes Mobility and Gait Pt uses a walker or SPC at baseline. He has occasional need for help with bed mobility and self care ADLs. Activities of Daily Living and IADL's Assist from partner with IADL's -med set-up and cooking, cleaning needs. Prior Functional Level (Other details) Home for 2 weeks from SNF rehab stay. Uses 4WW or SPC at all times. Partner/friend Leeanna, assists with ADLs in the home. Social History Household Members friend(s) Living Arrangements House Number of Floors (Floors) One Floor Number of Stairs To Enter/Railing? 4 steps with railing on R during ascent Home Environment Walk in Shower,Built-In Shower Seat Home Equipment Four Wheel Walker,Straight Cane,Hand Held Shower,Grab Bars Near Toilet,Grab Bars In Shower M2 OT-IP Current Condition Start: 03/14/22 18:12 Freq: Status: Active Protocol: Document 03/14/22 12:30 [facility] (Rec: 03/14/22 18:47 [facility] [id number]) Occupational Therapy Current Condition Current Condition Evaluation Date 03/14/22 Treatment Diagnosis Sepsis Diagnosis Onset Date 03/12/22 M3 OT- IP Subjective and Pain Start: 03/14/22 18:12 Freq: Status: Active Protocol: Document 03/14/22 12:30 [facility] (Rec: 03/14/22 18:47 [facility] [id number]) OT- Subjective Occupational Therapy Visit Type Type Initial Evaluation Visit Start Time 12:30 Visit Stop Time 13:15 Total Visit Minutes 45 Occupational Therapy Visit Comments Patient Comments Pt agreed to get up to the recliner. Patient/Caregiver Goals To go home, but realizes may have to go to skilled rehab. OT Pain Assessment Pain When Pain Assessed At Rest Pain Present Pain Present Denied Pain M4 OT- IP ADL's Start: 03/14/22 18:12 Freq: Status: Active Protocol: Document 03/14/22 12:30 [facility] (Rec: 03/14/22 18:47 [facility] [id number]) OT [id number] Comments OT Self-Feeding Comments NOt at meal time. OT ADL-Grooming Comments OT Grooming Comments Not performed. OT ADL-Oral Care Comments Oral Care Comments Not performed. OT ADL-Dressing General Eval Lower Body Dressing Ability Maximum Assistance Areas Needing Assistance Socks Comments OT Dressing Comments Pt needing assist for his socks at this time. OT ADL-Toileting General Evaluation Toileting Ability Maximum Assistance Areas Needing Assistance Perform Perineal Hygiene Comments OT Toileting Comments Pt had a bowel movement and needing MODA to stand with FWW and nursing assist to clean the pt for hygiene needs. OT ADL-Bathing Comments OT Bathing Comments Pt able to sponge off while sitting on the BSC, needing assist for his legs and back. M5 OT- IP IADL's Start: 03/14/22 18:12 Freq: Status: Active Protocol: Document 03/14/22 12:30 [facility] (Rec: 03/14/22 18:47 [facility] [id number]) OT-Instrumental Activities of Daily Living Home Safety Awareness Ability to Problem Solve Emergency Able to Problem Solve Situations Medication Management Medication Management Caregiver Provides Supervision Meal Preparation Meal Preparation Caregiver Provides Assist Automation Tender Automation Tender Caregiver Provides Assist M6 OT- IP Functional Cognition Start: 03/14/22 18:12 Freq: Status: Active Protocol: Document 03/14/22 12:30 [facility] (Rec: 03/14/22 18:47 [facility] [id number]) Cognitive Factors Limiting Selfcare Function Cognitive Ability Level of Alertness Alert Patient Orientation Name,Place,Situation Attention Span Ability Capable of Focused Attention, Capable of Sustained Attention Ability to Follow Commands Able to Follow One Step Commands Cognitive Comments Cognitive Assessment Comments Pt able to follow directions for ADl and mobility needs. OT- Vision and Hearing OT- Vision Assessment Visual Acuity Glasses For Reading M7 OT- IP Mobility and Balance Start: 03/14/22 18:12 Freq: Status: Active Protocol: Document 03/14/22 12:30 [facility] (Rec: 03/14/22 18:47 [facility] [id number]) OT- Bed Mobility Assessment Supine to Sit Supine to Sit Assist Standby Assistance Scooting Scooting to Edge of Bed Standby Assistance OT-Transfer Assessment Sit to and From Stand Sit to and from Stand Moderate Assistance,Maximum Assistance,1 Person Assistance Transfers Transfer Ability Moderate Assistance,Maximum Assistance,1 Person Assistance Technique Transfer Destination Bed,Bedside Commode,Chair Transfer Technique Stand Step Pivot Devices Transfer Assistive Devices Gait Belt,Front Wheeled Walker Comments Mobility Comments Pt having to use momentum to get from supine to sit , MODA/ MAXAX 1 to stand to FWW and transfer to BSC. MODAX 2 to get to the recliner with FWW. OT- Balance Assessment Sitting Balance and Reactions Static Sitting Balance Ability Good Dynamic Sitting Balance Ability Fair Standing Balance and Reactions Static Standing Balance Ability Poor Dynamic Standing Balance Ability Poor M8 OT- IP Objective Assessments Start: 03/14/22 18:12 Freq: Status: Active Protocol: Document 03/14/22 12:30 [facility] (Rec: 03/14/22 18:47 [facility] [id number]) OT Gross Range of Motion Upper Extremity Range of Motion Assessment Within Functional Limits OT Strength Upper Extremity Strength Assessment Within Functional Limits OT-Muscle Tone Assessment Muscle Tone WNL Yes M9 OT- IP Assessment and Plan Start: 03/14/22 18:12 Freq: Status: Active Protocol: Document 03/14/22 12:30 [facility] (Rec: 03/14/22 18:47 [facility] [id number]) OT Summary Assessment and Plan Potential Rehabilitation Potential Good Analytic Complexity at Evaluation Moderate Summary OT Impairments Balance,Functional Mobility, Grooming,Dressing,Toileting, Bathing,Toilet Transfers, Shower Transfers,Activity Tolerance Progress Towards Goals Slow Progress due to Medical Issues,Slow Progress due to Activity Tolerance Assessment Summary Pt MOD complexity and needing MODA X2 and mod/MAXA X1 with FWW for transfers. Pt needing MAX X1 for toileting and dressing needs. Pt will benefit from skilled rehab prior to going home. Goals Self-Feeding Goal Independent Grooming Goal Independent Dressing Goal Independent Toileting Goal Independent Bathing Goal Independent Toilet Transfer Goal Independent Shower Transfer Goal Independent Days to Meet Goals 20 Frequency of Treatment Frequency Of Treatment Once a Day Treatment Plan OT Treatment Plan ADL Training,Functional Mobility,Patient/Family Education,Discharge Planning Other Treatment Recommendations and Next director of diversity and inclusion front of the sink for Treatment Focus grooming needs with FWW. Discharge Recommendations OT Discharge Recommendations SNF Rehab Transportation Needs at Discharge Wheelchair/Cabulance
--- NOTE | 2022-03-14 13:52 | CM.DPC ---
DCP Cont: Per MD, pt making progress but needing more dieuresis today and likely stable for d/c over the weekend and recommending SNF as pt at least 2PA. Per PT, recommending SNF and OT orders. SW met bedside with pt and explained role and he confirms he recently discharged to [facility] about a month ago and was there about 2 weeks before discharging home for 2 weeks. Pt states his preference is home with Sig Other and family assist and denies that HH was set up after SNF and return to home but he would be agreeable with HH at d/c and no HH preference. SW inquired about a back up SNF in case pt is requiring too much assist to safely d/c home and currently his [facility] not [facility] due to the food there. SW made referrals to [facility], [facility], and [facility] in case SNF needed this weekend at d/c. Plan: SW to follow closely for HH vs SNF pending progress and likely d/c this weekend if stable. ALYSHA Nova
--- NOTE | 2022-03-14 14:48 | PT.IPTN ---
Current Diagnoses Sepsis, unspecified organism (03/12/22) Nonrheumatic aortic (valve) stenosis (03/12/22) Acute kidney failure, unspecified (03/12/22) Chronic kidney disease, stage 3b (03/12/22) Altered mental status, unspecified (03/12/22) Cardiogenic shock (03/12/22) Severe sepsis with septic shock (03/12/22) Physical Therapy Treatment Note M2 PT-IP Current Condition Start: 03/13/22 11:47 Freq: Status: Active Protocol: Document 03/13/22 11:49 [facility] (Rec: 03/13/22 12:03 [facility] [id number]) Physical Therapy Current Condition Current Condition Evaluation Date 03/13/22 Treatment Diagnosis sepsis; difficulty with ambulation, difficulty with transfers Onset Date 03/11/22 M3 PT-IP Subjective Start: 03/13/22 11:47 Freq: Status: Active Protocol: Document 03/14/22 14:32 LJ (Rec: 03/14/22 14:48 LJ [id number]) Subjective Physical Therapy Visit Type Type Treatment Note Visit Start Time 14:06 Visit Stop Time 12:32 Total Visit Minutes 26 Physical Therapy Visit Comments Patient Comments Sttes he just got back in bed but willing to get up again. Patient Goals To be strong enough to go home vs going to SNF M4 PT-IP Mobility and Gait Start: 03/13/22 11:47 Freq: Status: Active Protocol: Document 03/14/22 14:32 LJ (Rec: 03/14/22 14:48 LJ [id number]) PT-Bed Mobility Assessment Supine to Sit Supine to Sit Contact Guard Assistance,Head of Bed Elevated,Bedrails Sit to Supine Sit to Supine Contact Guard Assistance,1 Person Assistance,Head of Bed Elevated,Bedrails Scooting Scooting to Edge of Bed Standby Assistance PT-Transfer Assessment Sit to and From Stand Sit to and from Stand Contact Guard Assistance,1 Person Assistance,Use of Upper Extremities Equipment Transfer Assistive Device Gait Belt,Front Wheeled Walker Transfers Transfer Destination Bed Transfer Ability Level of Assist Contact Guard Assistance,1 Person Assistance,Use of Upper Extremities Comments Mobility Comments Pt SBA-CGA for bed mobility. Pt reqired arm hold assist to move from elevated supine to sitting. Able to pivot bottom to get feet off side of bed. Pt rested at side of bed in seating for 2 min then stood CGA and use of UEs. Pt stood 1 min then sat down on edge of bed. Pt stood second time for another minute, took 2 steps toward head of bed then instructed to return to sitting to catch breath. Pt then able to position self on bed with head of bed elevated and use of bed rails. Head of bed lowered then pt pulled himself up. Head of bed then raised and pt left in room with all needs within reach. Reported to nursing new level of assist pt required. PT-Balance Assessment Sitting Balance and Reactions Static Sitting Balance Ability Good Dynamic Sitting Balance Ability Fair Standing Balance and Reactions Static Standing Balance Ability Fair Dynamic Standing Balance Ability Fair M5 PT-IP Objective Assessments Start: 03/13/22 11:47 Freq: Status: Active Protocol: Document 03/13/22 11:49 [facility] (Rec: 03/13/22 12:03 [facility] [id number]) Orientation Orientation/Cognition Level of Alertness Alert Orientation Name,Date,Place,Situation Strength Upper Extremity Strength Assessment Bilaterally Impaired Shoulder 3+ to 4/5 Elbow 4/5 Lower Extremity Strength Assessment Bilaterally Impaired Hip 3+ to 4/5 Knee 3+ to 4/5 Ankle 3+ to 4/5 Comments Strength Comments Prior hx of hip pain with radiculopathy into LLE. Sensation Assessment Sensation Light Touch Impaired M6 PT-IP Treatment Start: 03/13/22 11:47 Freq: Status: Active Protocol: Document 03/14/22 14:32 LJ (Rec: 03/14/22 14:48 LJ [id number]) Physical Therapy Treatment Education Education Provided Safety M7 PT-IP Assessment and Plan Start: 03/13/22 11:47 Freq: Status: Active Protocol: Document 03/14/22 14:32 LJ (Rec: 03/14/22 14:48 LJ [id number]) PT Summary Assessment and Plan Potential Rehabilitation Potential Good Status of Condition at Evaluation Evolving Summary Impairments Pain,ROM,Strength,Balance, Coordination,Bed Mobility, Transfers,Gait,Activity Tolerance Progress Towards Goals Progressing Toward Goals Assessment Summary Pt much improved with mobility fredrick. Able to complete bed mobility Hansa-SBA x1, Sit<> stand SBA x1. Pt requires rest breaks to catch ihis breath. At this point he will require SNF to impove strength for more independent function and safety. Goals Bed Mobility Goal Contact Guard Assistance Transfer Goal Contact Guard Assistance Gait Goal Contact Guard Assistance Gait Distance 75 Other Goals Progress gait; Ascend/descend 4-5 steps with railing and CGA Days to Meet Goals 4 Frequency of Treatment Frequency Of Treatment Once a Day Treatment Plan Physical Therapy Treatment Plan Bed Mobility Training,Transfer Training,Gait Training, Therapeutic Exercise,Balance Retraining,Discharge Planning, Neuromuscular Re-ed Precautions Other Precautions Cardiac Supplemental O2 Recommendations To Nursing Amount of Assist Needed 1 Person Assist,2 Person Assist Discharge Recommendations PT Discharge Recommendations SNF Rehab Transportation Needs at Discharge Wheelchair/Cabulance
--- NOTE | 2022-03-14 17:59 | PC.NURSE ---
1750 - adan catheter removed, patient tolerated well
[2022-03-14] MEDS: ATORVASTATIN 20 MG TABLET PO (21:03)
[2022-03-15] VITALS (9 sets, daily range): BP systolic 103–141; BP diastolic 56–83; PULSE 90–116; RESP 16–28; TEMP 36.2–36.9; O2SAT 96–99
[2022-03-15] MEDS: PIPERACILLIN/TAZO 3.375 GM in SODIUM CHLORIDE 0.9% 100 ML IV ×3 (05:49→21:49)
[2022-03-15] MEDS: HEPARIN 5,000 UNIT/ML VIAL 7500 UNIT SUBCUT ×3 (05:50→21:49)
[2022-03-15] MEDS: PANTOPRAZOLE DR 40 MG TABLET PO (05:52)
[2022-03-15 06:22] LABS: Hematocrit 23.7 % (41-53); Hemoglobin 7.8 g/dL (13.5-17.5); Mean Corpuscular HGB Conc 33.1 % (30-36); Mean Corpuscular Hemoglobin 30.3 PG (26-34); Mean Corpuscular Volume 91.4 fL (80-100); Platelet Count 182 X10^3/uL (150-400); Red Blood Cell Count 2.59 X10^6/uL (4.5-5.9); Red Cell Distribution Width 14.2 % (11.6-14.8); White Blood Cell Count 11.4 X10^3/uL (4.5-11.0)
[2022-03-15 06:24] LABS: Add Manual Diff / Slide Review YES
--- NOTE | 2022-03-15 06:30 | PC.NURSE ---
0600- Picc line drawing very sluggish. Flushed and arm positioned but only able to obtain two vials. Lab notified and they will come to draw the PT inr.
[2022-03-15 06:35] LABS: Alanine Aminotransferase 25 IU/L (<50); Albumin 3.3 g/dL (3.5-5.0); Albumin Globulin Ratio 1.1 (1.0-2.8); Alkaline Phosphatase 52 U/L (38-126); Aspartate Aminotransferase 62 IU/L (17-59); BUN Creatinine Ratio 35.4 (6-22); Bilirubin Total 0.5 mg/dL (0.2-1.3); Blood Urea Nitrogen 57 mg/dL (9-20); Calcium 9.5 mg/dL (8.4-10.2); Carbon Dioxide 22 mmol/L (22-32); Chloride 110 mmol/L (98-107); Estimated Glomerular Filt Rate 42 mL/min (>60); Globulin 3.1 g/dL (1.7-4.1); Glucose 138 mg/dL (80-110); HEMOLYSIS < 15 (0-50); Magnesium 1.3 mg/dL (1.6-2.3); Sodium 140 mmol/L (137-145); Total Protein 6.4 g/dL (6.3-8.2)
[2022-03-15 06:39] LABS: Potassium 5.4 mmol/L (3.4-5.1)
[2022-03-15 06:44] LABS: NT-proBNP (BNP-Adult 18+) 2100 pg/mL (<450)
[2022-03-15 07:26] LABS: INR 1.1 (0.9-1.3); Prothrombin Time 12.9 SECONDS (10.1-12.7)
[2022-03-15 07:27] LABS: Anisocytosis 1+; Neutrophils Absolute Manual 10488 /uL (3000-5900); Total Cells Counted 100
[2022-03-15] MEDS: ALBUTEROL 2.5 MG/3 ML NEB (ADULT) INH ×3 (08:38→18:38)
[2022-03-15] MEDS: predniSONE 20 MG TABLET 40 MG PO (08:49)
[2022-03-15] MEDS: ASPIRIN 325 MG TABLET PO (08:49)
[2022-03-15] MEDS: LORazepam 0.5 MG TABLET PO ×3 (08:49→21:50)
[2022-03-15] MEDS: BUDESONIDE 0.5 MG/2 ML NEB INH ×2 (09:04→18:38)
[2022-03-15] MEDS: HYDROCODONE/ACET 5/325 TABLET 1 TAB PO ×3 (09:08→18:45)
[2022-03-15] MEDS: MAGNESIUM SULFATE 2 GM/50 ML PIGGYBACK IV (10:29)
--- NOTE | 2022-03-15 12:45 | P.PN_ITS ---
Subjective Subjective Date Patient Seen: 03/15/22 Interval history: The pt reports feeling well this morning. He denies any specific concerns. He is hoping to discharge home tomorrow in time for his afternoon poker game. He denies any recent chest pain, and states that his breathing is stable. Exam Vital Signs (past 8 hours): - 03/15/22 07:00 03/15/22 09:10 03/15/22 09:00 Temperature 98.5 F Pulse Rate 112 H 116 H Respiratory Rate 22 21 Blood Pressure 126/83 Pulse Oximetry 97 98 Oxygen Delivery Method Room Air Fraction of Inspired Oxygen 28 SaO2/FiO2 Ratio 332 Oxygen Delivery Method Room Air Oxygen Flow Rate 0 Narrative Exam Narrative: Gen: NAD, sitting comfortably in bed, CV: RRR, grade 2/6 systolic murmur Resp: clear to auscultation bilaterally, good air movement throughout Abd: soft, nontender, nondistended Ext: no edema Objective Labs Result Diagrams: 03/15/22 06:00 03/15/22 06:00 Labs: Laboratory Results - last 24 hr 03/15/22 03/15/22 03/15/22 06:00 06:00 06:28 WBC 11.4 H RBC 2.59 L Hgb 7.8 L Hct 23.7 L MCV 91.4 MCH 30.3 MCHC 33.1 RDW 14.2 Plt Count 182 Neut % (Auto) Not Reportable Lymph % (Auto) Not Reportable [place] % (Auto) Not Reportable Eos % (Auto) Not Reportable Baso % (Auto) Not Reportable Lymph # (Auto) Not Reportable [place] # (Auto) Not Reportable Baso # (Auto) Not Reportable Total Counted 100 Seg Neutrophils % 91.0 H Band Neutrophils % 1.0 L Lymphocytes % (Manual) 5.0 L Monocytes % (Manual) 3.0 Neutrophils # (Manual) 43271 H RBC Morphology See below Anisocytosis 1+ H PT 12.9 H INR 1.1 Sodium 140 Potassium 5.4 H Chloride 110 H Carbon Dioxide 22 BUN 57 H Creatinine 1.61 H Estimated GFR 42 L BUN/Creatinine Ratio 35.4 H Glucose 138 H Calcium 9.5 Magnesium 1.3 L Total Bilirubin 0.5 AST 62 H ALT 25 Alkaline Phosphatase 52 NT-Pro-B Natriuret Pep 2100 H Total Protein 6.4 Albumin 3.3 L Globulin 3.1 Albumin/Globulin Ratio 1.1 [facility] Medical History Acute respiratory failure with hypoxia Chronic back pain (~1959) COPD (chronic obstructive pulmonary disease) Gout (~2011) History of urinary incontinence Lung cancer (~2007) Moderate aortic stenosis by prior echocardiogram Pancreatitis (~2005) Vision disorder Surgical History Anesthesia History of lung surgery (~03/2007) Family History Father Heart disease Grandmother Age: 82 Ovarian cancer, unspecified laterality Mother Diabetes mellitus Sister No problems noted. Social History marital status: household members: friend(s) Smoking Status: Current every day smoker alcohol intake: current substance use type: does not use Assessment & Plan Assessment & Plan narrative: Pt is an 86yo man with CAD, alcohol misuse disorder, hyperlipidemia, hx of lung cancer and likely recurrence who presented in septic shock. 1) Septic shock requiring Levophed: Most likely due to CAP. Blood pressures stable off pressure support now. - Continue IV Zosyn for now - Cultures negative 2) Severe aortic stenosis: Originally thought to potentially be contributing to hypotension as well, however Cardiology felt less likely. No need for acute surgical intervention. 3) Type 2 myocardial infarction: Due to demand ischemia and chronic kidney disease. Asymptomatic. Troponins stabilized. 4) JAYCEE on CKD: Creatinine returning to normal. - Continue to trend 5) Fluid overload: Due to fluid support of blood pressure at admission. Lasix given yesterday with good urine output. BNP remains elevated, although clinically stable. - Repeat IV Lasix today x2 6) Electrolyte abnormalities: Hyperkalemia (improving), hypomagnesemia - Repeat Lasix as above for potassium - Magnesium replacement today 7) Spiculated right upper lobe mass suspicious for neoplasm, possible infection: Pt with hx of lung cancer s/p partial lung removal. He continues to smoke. - Additional outpatient work-up if desired 8) COPD: No evidence exacerbation - Continue home treatments 9) Alcohol misuse disorder: Withdrawals last hospitalization - Scheduled Lorazepam 10) CAD: - Restart home Metoprolol - Continue to hold home Lisinopril for now 11) Morbid obesity with a BMI of 41 12) Hyperlipidemia: - Hold home statin Diet: Cardiac DVT ppx: Lovenox Code: DNR Dispo: Anticipate stable for d/c tomorrow. PT/OT as of yesterday recommended SNF, however pt desires d/c home. Will work with PT again today to reassess strength. Time Spent With Patient Critical Care time: I spent a total of [] minutes of critical care time on this patient's care today; this time is exclusive of procedural time.
--- NOTE | 2022-03-15 13:56 | PT.IPTN ---
Current Diagnoses Sepsis, unspecified organism (03/12/22) Nonrheumatic aortic (valve) stenosis (03/12/22) Acute kidney failure, unspecified (03/12/22) Chronic kidney disease, stage 3b (03/12/22) Altered mental status, unspecified (03/12/22) Cardiogenic shock (03/12/22) Severe sepsis with septic shock (03/12/22) Physical Therapy Treatment Note M2 PT-IP Current Condition Start: 03/13/22 11:47 Freq: Status: Active Protocol: Document 03/13/22 11:49 BC (Rec: 03/13/22 12:03 BC [id number]) Physical Therapy Current Condition Current Condition Evaluation Date 03/13/22 Treatment Diagnosis sepsis; difficulty with ambulation, difficulty with transfers Onset Date 03/11/22 M3 PT-IP Subjective Start: 03/13/22 11:47 Freq: Status: Active Protocol: Document 03/15/22 13:39 LJ (Rec: 03/15/22 13:55 LJ [id number]) Subjective Physical Therapy Visit Type Type Treatment Note Visit Start Time 12:57 Visit Stop Time 01:36 Total Visit Minutes 39 Physical Therapy Visit Comments Patient Comments Pt SO in room. Pt states he would like to go home so will get up and walk to get stronger Patient Goals To be strong enough to go home vs going to SNF M4 PT-IP Mobility and Gait Start: 03/13/22 11:47 Freq: Status: Active Protocol: Document 03/15/22 13:39 LJ (Rec: 03/15/22 13:55 LJ [id number]) PT-Bed Mobility Assessment Supine to Sit Supine to Sit Contact Guard Assistance,Head of Bed Elevated,Bedrails Scooting Scooting to Edge of Bed Contact Guard Assistance PT-Transfer Assessment Sit to and From Stand Sit to and from Stand Contact Guard Assistance,1 Person Assistance,Use of Upper Extremities Equipment Transfer Assistive Device Gait Belt,Front Wheeled Walker Transfers Transfer Destination Chair Transfer Ability Level of Assist Contact Guard Assistance,1 Person Assistance,Use of Upper Extremities Comments Mobility Comments Pt SBA-CGA for bed mobility and transfer sit<>stand. Pt stood from bed using FWW and push off with UE. Pt stood to catch breath then lost balance posterior and sat back down on bed. Pt stood second time and ambulated @' to chair. Pt rested several minutes and used the urinal. Pt then stood from chair after several attempts usinf FWW and pushing off chair. Ambulated in hallway ~80' total and returned to sitting in chair for rest break. Pt repeated hallway ambulation again, ~80' and returned to chair. Pt very winded but improved from yesterday's activity tolerance . Pt impulsive. Ambulates with very flexed trunk pushing FWW far in front of him. Pt left seated in chair with all needs within reach. Nursing notified that there was no chair alarm on pt and nursing indicated it was ok. Gait Assessment Gait Gait Assistance Required: Contact Guard Assist,1 Person Assist Distance (Feet) 160 Assistive Devices Assistive Device Gait Belt,Front Wheeled Walker Gait Deviations General Gait Pattern Antalgic,Decreased Stride Length,Decreased Feet Clearance,Flexed Trunk Factors Limiting Gait Function Factors Limiting Gait Function Decreased Activity Tolerance, Decreased Strength,Limited Range of Motion,Pain,Poor Balance,Poor Safety Awareness, Respiratory Distress Stair Climbing Assessment Comments Stair Climbing Comments attempt next treatment PT-Balance Assessment Sitting Balance and Reactions Static Sitting Balance Ability Good Dynamic Sitting Balance Ability Fair Standing Balance and Reactions Static Standing Balance Ability Poor Dynamic Standing Balance Ability Poor M5 PT-IP Objective Assessments Start: 03/13/22 11:47 Freq: Status: Active Protocol: Document 03/13/22 11:49 BC (Rec: 03/13/22 12:03 BC [id number]) Orientation Orientation/Cognition Level of Alertness Alert Orientation Name,Date,Place,Situation Strength Upper Extremity Strength Assessment Bilaterally Impaired Shoulder 3+ to 4/5 Elbow 4/5 Lower Extremity Strength Assessment Bilaterally Impaired Hip 3+ to 4/5 Knee 3+ to 4/5 Ankle 3+ to 4/5 Comments Strength Comments Prior hx of hip pain with radiculopathy into LLE. Sensation Assessment Sensation Light Touch Impaired M6 PT-IP Treatment Start: 03/13/22 11:47 Freq: Status: Active Protocol: Document 03/15/22 13:39 GERMAN (Rec: 03/15/22 13:55 LJ [id number]) Physical Therapy Treatment Education Education Provided Safety M7 PT-IP Assessment and Plan Start: 03/13/22 11:47 Freq: Status: Active Protocol: Document 03/15/22 13:39 LJ (Rec: 03/15/22 13:55 LJ [id number]) PT Summary Assessment and Plan Potential Rehabilitation Potential Good Status of Condition at Evaluation Evolving Summary Impairments Pain,ROM,Strength,Balance, Coordination,Bed Mobility, Transfers,Gait,Activity Tolerance Progress Towards Goals Progressing Toward Goals Assessment Summary Pt increased ambulation distance being able to ambulate in hallway 2x with rest break in between walks. Pt is impulsive and not making safe turns with FWW. Pushes walker too far in front of himself and walks with very flexed trunk. Pt not very safety conscious. Recommend SNF to improve strength, balance, and function prior to returning home. SO unable to help him with mobility. Goals Bed Mobility Goal Contact Guard Assistance Transfer Goal Contact Guard Assistance Gait Goal Contact Guard Assistance Gait Distance 75 Other Goals Progress gait; Ascend/descend 4-5 steps with railing and CGA Days to Meet Goals 4 Frequency of Treatment Frequency Of Treatment Once a Day Treatment Plan Physical Therapy Treatment Plan Bed Mobility Training,Transfer Training,Gait Training, Therapeutic Exercise,Balance Retraining,Discharge Planning, Neuromuscular Re-ed Precautions Other Precautions Cardiac Supplemental O2 Recommendations To Nursing Amount of Assist Needed 1 Person Assist Discharge Recommendations PT Discharge Recommendations SNF Rehab Transportation Needs at Discharge Wheelchair/Cabulance
[2022-03-15] MEDS: FUROSEMIDE 40 MG/4 ML VIAL IV ×2 (14:00→19:51)
--- NOTE | 2022-03-15 14:44 | CM.DPC ---
DCP Cont: Per MD, pt's labs still remain off and somewhat SOB and not yet medically stable to d/c and to work with PT further today towards determining HH vs SNF for likely d/c tomorrow Sun. Per PT, pt made significant progress and was able to ambulate 80 ft with walker but impulsive and needs cueing and still feel pt would benefit from SNF at d/c before home. SW confirmed that [facility] can accept Sun if SNF needed and home not safe. [facility] but would not have a bed until Thursday. ABRAHAN met bedside with pt and discussed SNF recommendation and pt still adamant that he feels he has enough support at home with [facility] (who is not able to assist physically), Dtr who will be here tomorrow Sun, and friend assist to d/c home. Pt continues to refuse SNF at this time but agreeable with HH and provided the HH Choice list and no preference at this time. SW made [facility] referral based on [facility] Calendar and F2F completed but not yet scanned/faxed. Plan: SW to follow closely in the AM with to confirm plan of home with [facility] and Dtr assist and new [facility] referral vs [facility]. ALYSHA Nova
[2022-03-15 19:13] LABS: Add Manual Diff / Slide Review NO; Basophils Absolute Auto 0 /uL (0-100); Basophils Percent Auto 0.1 % (0-2); Eosinophils Absolute Auto 0 /uL (0-450); Eosinophils Percent Auto 0.2 % (2-4); Hematocrit 26.9 % (41-53); Hemoglobin 8.9 g/dL (13.5-17.5); Lymphocytes Absolute Auto 400 /uL (1100-4500); Lymphocytes Percent Auto 2.7 % (25-40); Mean Corpuscular Hemoglobin 30.4 PG (26-34); Monocytes Absolute Auto 400 /uL (0-900); Monocytes Percent Auto 2.6 % (3-14); Neutrophils Absolute Auto 14000 /uL (1500-7000); Neutrophils Percent Auto 94.4 % (50-75); Platelet Count 246 X10^3/uL (150-400); Red Blood Cell Count 2.93 X10^6/uL (4.5-5.9); Red Cell Distribution Width 14.2 % (11.6-14.8); White Blood Cell Count 14.8 X10^3/uL (4.5-11.0)
[2022-03-15] MEDS: ATORVASTATIN 20 MG TABLET PO (21:49)
[2022-03-16] VITALS (7 sets, daily range): BP systolic 105–167; BP diastolic 63–81; PULSE 67–87; RESP 16–221; TEMP 36.2–36.8; O2SAT 92–98
[2022-03-16 05:24] LABS: Add Manual Diff / Slide Review NO; Basophils Absolute Auto 0 /uL (0-100); Basophils Percent Auto 0.1 % (0-2); Eosinophils Absolute Auto 0 /uL (0-450); Eosinophils Percent Auto 0.1 % (2-4); Hematocrit 25.4 % (41-53); Hemoglobin 8.4 g/dL (13.5-17.5); Lymphocytes Absolute Auto 800 /uL (1100-4500); Lymphocytes Percent Auto 6.4 % (25-40); Mean Corpuscular Hemoglobin 30.2 PG (26-34); Mean Corpuscular Volume 91.4 fL (80-100); Monocytes Absolute Auto 600 /uL (0-900); Monocytes Percent Auto 5.2 % (3-14); Neutrophils Absolute Auto 10800 /uL (1500-7000); Neutrophils Percent Auto 88.2 % (50-75); Platelet Count 234 X10^3/uL (150-400); Red Blood Cell Count 2.78 X10^6/uL (4.5-5.9); Red Cell Distribution Width 14.7 % (11.6-14.8); White Blood Cell Count 12.3 X10^3/uL (4.5-11.0)
[2022-03-16 05:25] LABS: Alanine Aminotransferase 29 IU/L (<50); Albumin 3.4 g/dL (3.5-5.0); Albumin Globulin Ratio 1.1 (1.0-2.8); Alkaline Phosphatase 51 U/L (38-126); Aspartate Aminotransferase 47 IU/L (17-59); Bilirubin Total 0.3 mg/dL (0.2-1.3); Blood Urea Nitrogen 58 mg/dL (9-20); Calcium 9.5 mg/dL (8.4-10.2); Carbon Dioxide 25 mmol/L (22-32); Chloride 105 mmol/L (98-107); Estimated Glomerular Filt Rate 36 mL/min (>60); Glucose 146 mg/dL (80-110); HEMOLYSIS < 15 (0-50); Sodium 139 mmol/L (137-145); Total Protein 6.4 g/dL (6.3-8.2)
[2022-03-16 05:33] LABS: NT-proBNP (BNP-Adult 18+) 2740 pg/mL (<450)
[2022-03-16 05:38] LABS: Potassium 5.8 mmol/L (3.4-5.1)
[2022-03-16] MEDS: PIPERACILLIN/TAZO 3.375 GM in SODIUM CHLORIDE 0.9% 100 ML IV ×3 (06:15→23:32)
[2022-03-16] MEDS: PANTOPRAZOLE DR 40 MG TABLET PO (06:16)
[2022-03-16 08:28] LABS: Magnesium 1.6 mg/dL (1.6-2.3)
[2022-03-16] MEDS: LORazepam 0.5 MG TABLET PO ×3 (08:40→20:38)
[2022-03-16] MEDS: ASPIRIN 325 MG TABLET PO (08:40)
[2022-03-16] MEDS: predniSONE 20 MG TABLET 40 MG PO (08:40)
[2022-03-16] MEDS: METOPROLOL IR 50 MG TABLET 100 MG PO ×2 (09:05→20:38)
--- NOTE | 2022-03-16 10:28 | DI.RAD.S_ITS ---
PROCEDURE: XR CHEST 1V INDICATIONS: worsening wheezing, crackles on exam TECHNIQUE: One view of the chest was acquired. COMPARISON: [facility], CR, XR CHEST 1V, 03/13/2022, 5:03. FINDINGS: Surgical changes and devices: Left-sided midline catheter tip noted in the mid axillary vein Lungs and pleura: Minimal left basilar atelectasis and or infiltrate Mediastinum: Mediastinal contours appear normal. Heart size is enlarged. Bones and chest wall: No suspicious bony lesions. Overlying soft tissues appear unremarkable. IMPRESSION: Minimal patchy left basilar atelectasis and or infiltrate Approved by: Sarbjit Phillips M.D. on 03/16/2022 at 10:54
--- NOTE | 2022-03-16 10:42 | PM.PN.1 ---
Subjective Subjective Date Patient Seen: 03/16/22 Interval history: Today the pt reports overall feeling well. He states the he woke feeling slightly hoarse with a more intense cough than usual. He denies any chest pain or overt SOB however. He was able to work with PT yesterday. He feels that he is not back to 100%, but is improving daily. He still wished to discharge home when leaving the hospital, and feels he would be safe doing so. Exam Vital Signs (past 8 hours): - 03/16/22 05:00 Temperature 97.4 F L Pulse Rate 87 Respiratory Rate 24 Blood Pressure 167/77 H Pulse Oximetry 95 Oxygen Flow Rate 0 Fraction of Inspired Oxygen 28 SaO2/FiO2 Ratio 332 Oxygen Delivery Method Room Air Oxygen Flow Rate 0 Narrative Exam Narrative: Gen: NAD, sitting comfortably in bed, eating breakfast, frequent wet cough, intermittent audible wheezing CV: regular rate, tachycardic, grade 2/6 systolic murmur Resp:? mild crackles right lung without significant wheezing, decreased air movement Abd:? soft, nontender, nondistended Ext:? no edema Objective Labs Result Diagrams: 03/16/22 05:00 03/16/22 05:00 Labs: Laboratory Results - last 24 hr 03/15/22 03/16/22 03/16/22 19:05 05:00 05:00 WBC 14.8 H 12.3 H RBC 2.93 L 2.78 L Hgb 8.9 L 8.4 L Hct 26.9 L 25.4 L MCV 92.0 91.4 MCH 30.4 30.2 MCHC 33.0 33.0 RDW 14.2 14.7 Plt Count 246 234 Neut % (Auto) 94.4 H 88.2 H Lymph % (Auto) 2.7 L 6.4 L [place] % (Auto) 2.6 L 5.2 Eos % (Auto) 0.2 L 0.1 L Baso % (Auto) 0.1 0.1 Neut # (Auto) 08805 H 09567 H Lymph # (Auto) 400 L 800 L [place] # (Auto) 400 600 Eos # (Auto) 0 0 Baso # (Auto) 0 0 Sodium 139 Potassium 5.8 H Chloride 105 Carbon Dioxide 25 BUN 58 H Creatinine 1.81 H Estimated GFR 36 L BUN/Creatinine Ratio 32.0 H Glucose 146 H Calcium 9.5 Magnesium Total Bilirubin 0.3 AST 47 ALT 29 Alkaline Phosphatase 51 NT-Pro-B Natriuret Pep 2740 H Total Protein 6.4 Albumin 3.4 L Globulin 3.0 Albumin/Globulin Ratio 1.1 03/16/22 05:00 WBC RBC Hgb Hct MCV MCH MCHC RDW Plt Count Neut % (Auto) Lymph % (Auto) [place] % (Auto) Eos % (Auto) Baso % (Auto) Neut # (Auto) Lymph # (Auto) [place] # (Auto) Eos # (Auto) Baso # (Auto) Sodium Potassium Chloride Carbon Dioxide BUN Creatinine Estimated GFR BUN/Creatinine Ratio Glucose Calcium Magnesium 1.6 Total Bilirubin AST ALT Alkaline Phosphatase NT-Pro-B Natriuret Pep Total Protein Albumin Globulin Albumin/Globulin Ratio [facility] Medical History Acute respiratory failure with hypoxia Chronic back pain (~1959) COPD (chronic obstructive pulmonary disease) Gout (~2011) History of urinary incontinence Lung cancer (~2007) Moderate aortic stenosis by prior echocardiogram Pancreatitis (~2005) Vision disorder Surgical History Anesthesia History of lung surgery (~03/2007) Family History Father Heart disease Grandmother Age: 82 Ovarian cancer, unspecified laterality Mother Diabetes mellitus Sister No problems noted. Social History marital status: household members: friend(s) Smoking Status: Current every day smoker alcohol intake: current substance use type: does not use Assessment & Plan Assessment & Plan narrative: Pt is an 86yo man with CAD, alcohol misuse disorder, hyperlipidemia, hx of lung cancer and likely recurrence who presented in septic shock. 1)? Septic shock requiring Levophed:? Most likely due to CAP.? Blood pressures stable off pressure support now and actually rising. - Continue IV Zosyn for now - Cultures negative 2)? Severe aortic stenosis:? Originally thought to potentially be contributing to hypotension as well, however Cardiology felt less likely.? No need for acute surgical intervention. 3)? Type 2 myocardial infarction:? Due to demand ischemia and chronic kidney disease.? Asymptomatic.? Troponins stabilized. 4)? JAYCEE on CKD:? Creatinine unfortunately increased this morning. Potentially due to Lasix, and overdiuresing. - Continue to trend 5)? Fluid overload:? Due to fluid support of blood pressure at admission.? Lasix given last 2 days, decent urine output yesterday. BNP unfortunately increased further, although pt remains clinically stable. Does have some crackles on lung exam today. BNP potentially more elevated due to rising Creatinine. - CXR today to help better evaluate fluid overload - May hesitantly repeat Lasix if CXR with significant pulmonary edema, however aware of rising Creatinine 6)? Electrolyte abnormalities:? Hyperkalemia - unfortunately edelmira this morning despite Lasix yesterday, actually question hypovolemia if overdiuresed, hypomagnesemia (resolved) - Continue to trend 7)? Spiculated right upper lobe mass suspicious for neoplasm, possible infection:? Pt with hx of lung cancer s/p partial lung removal.? He continues to smoke. - Additional outpatient work-up if desired 8)? COPD:? No evidence exacerbation - Continue home treatments 9)? Alcohol misuse disorder:? Withdrawals last hospitalization - Scheduled Lorazepam 10)? CAD: Blood pressure elevated. - Restart home Metoprolol (ended up holding yesterday due to lower BPs) - Continue to hold home Lisinopril for now 11)? Morbid obesity with a BMI of 41 12)? Hyperlipidemia:? - Hold home statin 13) Chronic anemia: Now stable - Continue to trend - Stool occult blood pending - Iron studies in the morning Diet:? Cardiac DVT ppx:? Lovenox Code:? DNR Dispo:? Hopeful stable for d/c tomorrow.? PT/OT continue to recommend SNF, however pt adamantly declines placement. Discussed risks of falls at home, but pt feels he is stable. Will with reservation plan on d/c home with home health. Time Spent With Patient Critical Care time: I spent a total of [] minutes of critical care time on this patient's care today; this time is exclusive of procedural time.
--- NOTE | 2022-03-16 11:23 | CM.DPC ---
Addendum entered by Mirella Chen R.N. 03/16/22 12:29: Checked in with patient. Introduced self and role. Patient was sitting up in his chair, alert and oriented. Confirmed with patient he wants to go home. Asked him if he would be open to other half-way facilities for short term, as he did not like the food at [facility]. Patient is adamant that he wants home, he has two walkers, and a livestock commission agent. He also has someone that comes and does house cleaning once a week. He is hopeful to go home tomorrow. Let him know that this DC Kier Pleater will ensure that [facility] is updated. Notes do indicate that other facilities, both [facility] and [facility] were sent referrals as back up. Original Note: DCP Cont: Patient was going to be discharged home today, but Dr. Davalos is keeping patient another day secondary to some lab results. Patient wants to go home, will not go to a half-way facility. As was previously documented, patient was recently at [facility]. [facility] referral has been initiated, will follow up with [facility] tomorrow. Dr. Davalos plans on discharging patient home tomorrow. P: DCP to continue to follow closely. Plan is home with [facility] when stable. Face to face is already completed and signed, and they will need DC Summary. Mirella Chen RN/Special Service Representative
--- NOTE | 2022-03-16 12:10 | PT.IPTN ---
Current Diagnoses Sepsis, unspecified organism (03/12/22) Nonrheumatic aortic (valve) stenosis (03/12/22) Acute kidney failure, unspecified (03/12/22) Chronic kidney disease, stage 3b (03/12/22) Altered mental status, unspecified (03/12/22) Cardiogenic shock (03/12/22) Severe sepsis with septic shock (03/12/22) Physical Therapy Treatment Note M2 PT-IP Current Condition Start: 03/13/22 11:47 Freq: Status: Active Protocol: Document 03/13/22 11:49 BC (Rec: 03/13/22 12:03 BC [id number]) Physical Therapy Current Condition Current Condition Evaluation Date 03/13/22 Treatment Diagnosis sepsis; difficulty with ambulation, difficulty with transfers Onset Date 03/11/22 M3 PT-IP Subjective Start: 03/13/22 11:47 Freq: Status: Active Protocol: Document 03/16/22 12:10 AW (Rec: 03/16/22 12:48 AW [id number]) Subjective Physical Therapy Visit Type Type Treatment Note Visit Start Time 11:43 Visit Stop Time 12:10 Total Visit Minutes 27 Physical Therapy Visit Comments Patient Comments Pt is willing to participate with PT Therapy Pain Assessment Pain When Pain Assessed At Rest Pain Present Pain Present Pain Reported Location Back Scale Used not quantified M4 PT-IP Mobility and Gait Start: 03/13/22 11:47 Freq: Status: Active Protocol: Document 03/16/22 12:10 AW (Rec: 03/16/22 12:48 AW [id number]) PT-Bed Mobility Assessment Supine to Sit Supine to Sit Contact Guard Assistance, Bedrails PT-Transfer Assessment Sit to and From Stand Sit to and from Stand Minimal Assistance,Moderate Assistance,1 Person Assistance ,Use of Upper Extremities Equipment Transfer Assistive Device Gait Belt,Front Wheeled Walker Transfers Transfer Destination Chair,Toilet Transfer Ability Level of Assist Minimal Assistance,1 Person Assistance,Use of Upper Extremities Comments Mobility Comments Pt was lying in bed as PT arrived. With HOB flat, pt completed supine to sit CGA. He stood min A from the bed and agreed to ambulate in the halls a total of 60 feet. On return to the room, he indicated need to use the toilet. He walked into the toilet and transferred min A with heavy use of grab bar. After having a small bowel movement, he attempted to complete pericare but needed help for completeness. He stood mod A with use of grab bar as PT assisted with pericare. Pt ambulated with FWW to the chair, transferring Silvio. Pt was left in the chair with alarm on. Pt was SOB and coughing during mobility. SpO2 was stable 95- 97% on room air throughout. Gait Assessment Gait Gait Assistance Required: Contact Guard Assist,Minimum Assistance,1 Person Assist Distance (Feet) 60 Assistive Devices Assistive Device Gait Belt,Front Wheeled Walker Gait Deviations General Gait Pattern Antalgic,Decreased Stride Length,Decreased Feet Clearance,Flexed Trunk Factors Limiting Gait Function Factors Limiting Gait Function Decreased Activity Tolerance, Decreased Strength,Limited Range of Motion,Pain,Poor Balance,Poor Safety Awareness, Respiratory Distress Comments Gait Comments Pt fatigued more easily today. He requires max cues and constant reminders to maintain proximity to walker frame. He tends to walk 2 feet behind the walker, leaning forward heavily. Stair Climbing Assessment Comments Stair Climbing Comments Not appropriate or safe for stairs today. PT-Balance Assessment Sitting Balance and Reactions Static Sitting Balance Ability Good Dynamic Sitting Balance Ability Fair Standing Balance and Reactions Static Standing Balance Ability Fair Dynamic Standing Balance Ability Poor Device Used FWW M5 PT-IP Objective Assessments Start: 03/13/22 11:47 Freq: Status: Active Protocol: Document 03/13/22 11:49 BC (Rec: 03/13/22 12:03 BC [id number]) Orientation Orientation/Cognition Level of Alertness Alert Orientation Name,Date,Place,Situation Strength Upper Extremity Strength Assessment Bilaterally Impaired Shoulder 3+ to 4/5 Elbow 4/5 Lower Extremity Strength Assessment Bilaterally Impaired Hip 3+ to 4/5 Knee 3+ to 4/5 Ankle 3+ to 4/5 Comments Strength Comments Prior hx of hip pain with radiculopathy into LLE. Sensation Assessment Sensation Light Touch Impaired M6 PT-IP Treatment Start: 03/13/22 11:47 Freq: Status: Active Protocol: Document 03/16/22 12:10 AW (Rec: 03/16/22 12:48 AW [id number]) Physical Therapy Treatment Education Education Provided Safety M7 PT-IP Assessment and Plan Start: 03/13/22 11:47 Freq: Status: Active Protocol: Document 03/16/22 12:10 AW (Rec: 01/08/23 12:48 AW [id number]) PT Summary Assessment and Plan Potential Rehabilitation Potential Good Status of Condition at Evaluation Evolving Summary Impairments Pain,ROM,Strength,Balance, Coordination,Bed Mobility, Transfers,Gait,Activity Tolerance Progress Towards Goals Progressing Toward Goals,Slow Progress due to Activity Tolerance Assessment Summary Todd is not tolerating as much activity today. He is limited by SOB and weakness but SpO2 was stable on room air. His safety awareness with FWW is poor. Recommend SNF to improve strength, balance, and function prior to returning home. SO unable to help him with mobility. Pt is refusing SNF. If he discharges home, would need PT. Goals Bed Mobility Goal Contact Guard Assistance Transfer Goal Contact Guard Assistance Gait Goal Contact Guard Assistance Gait Distance 75 Other Goals Progress gait; Ascend/descend 4-5 steps with railing and CGA Days to Meet Goals 4 Frequency of Treatment Frequency Of Treatment Once a Day Treatment Plan Physical Therapy Treatment Plan Bed Mobility Training,Transfer Training,Gait Training, Therapeutic Exercise,Balance Retraining,Discharge Planning, Neuromuscular Re-ed Precautions Other Precautions Cardiac Recommendations To Nursing Amount of Assist Needed 1 Person Assist Discharge Recommendations PT Discharge Recommendations SNF Rehab Transportation Needs at Discharge Wheelchair/Cabulance
[2022-03-16] MEDS: BUDESONIDE 0.5 MG/2 ML NEB INH ×2 (12:50→19:53)
[2022-03-16] MEDS: ALBUTEROL/IPRATROPIUM 3 ML AMPUL INH ×2 (12:50→19:46)
[2022-03-16] MEDS: HEPARIN 5,000 UNIT/ML VIAL 7500 UNIT SUBCUT (15:12)
[2022-03-16] MEDS: ATORVASTATIN 20 MG TABLET PO (20:38)
[2022-03-16] MEDS: HEPARIN 5,000 UNIT/ML VIAL 5000 UNIT SUBCUT (23:32)
[2022-03-17] VITALS: BP 131/58; PULSE 80; RESP 15; TEMP 36.6; O2SAT 95
--- NOTE | 2022-03-17 03:03 | PC.NURSE ---
pt ambulating to the bathroom with 1 person assist and FWW. Pt unsteady on his feet and urinating in the floor. bed alarm in place for safety.
[2022-03-17] MEDS: HYDROCODONE/ACET 5/325 TABLET 1 TAB PO (05:07)
[2022-03-17] MEDS: HEPARIN 5,000 UNIT/ML VIAL 5000 UNIT SUBCUT (05:20)
[2022-03-17 05:42] LABS: HEMOLYSIS < 15 (0-50); Iron 70 ug/dL (49-181)
[2022-03-17 05:43] LABS: BUN Creatinine Ratio 37.6 (6-22); Blood Urea Nitrogen 64 mg/dL (9-20); Calcium 9.9 mg/dL (8.4-10.2); Carbon Dioxide 25 mmol/L (22-32); Chloride 104 mmol/L (98-107); Estimated Glomerular Filt Rate 39 mL/min (>60); Glucose 109 mg/dL (80-110); HEMOLYSIS < 15 (0-50); Magnesium 1.6 mg/dL (1.6-2.3); Sodium 141 mmol/L (137-145)
[2022-03-17 05:53] LABS: Percent Iron Saturation 25 % (20-50); Total Iron Binding Capacity 275 ug/dL (261-462); Transferrin 222 mg/dL (206-381)
[2022-03-17 05:56] LABS: Hemoglobin 9.6 g/dL (13.5-17.5); Mean Corpuscular Hemoglobin 30.3 PG (26-34); Platelet Count 272 X10^3/uL (150-400); Red Blood Cell Count 3.16 X10^6/uL (4.5-5.9); Red Cell Distribution Width 14.5 % (11.6-14.8); White Blood Cell Count 13.8 X10^3/uL (4.5-11.0)
[2022-03-17] MEDS: PIPERACILLIN/TAZO 3.375 GM in SODIUM CHLORIDE 0.9% 100 ML IV (05:57)
[2022-03-17 05:59] LABS: Add Manual Diff / Slide Review YES; Potassium 5.4 mmol/L (3.4-5.1)
[2022-03-17 06:24] LABS: Neutrophils Absolute Manual 11454 /uL (3000-5900); RBC Morphology Normal Morphology; Total Cells Counted 100
[2022-03-17 06:25] LABS: Platelet Estimate Adequate on smear
--- NOTE | 2022-03-17 07:56 | PM.DS.1 ---
History of Present Illness History of Present Illness Chief complaint: fall Narrative: 86-year-old male with critical aortic stenosis COPD history of lung cancer and concerning new lesion on lung chronic kidney disease coronary artery disease hypertension hyperlipidemia morbid obesity and alcohol misuse was brought into the emergency department with weakness. Patient was trying to get out of bed this morning and fell. Patient was hospitalized approximately 1 month ago. The time he was found to be in septic shock. Spent a few days in the hospital and recovered was in the halfway for about 2 weeks and has been home for 2 weeks. Says he has been feeling more and more weak. Not much energy. Feeling lightheaded and dizzy. Not had any fever he does always have a cough and he is on and shortness of breath. He is still smoking. He says he has not had an alcoholic drink for the last 5 days. Denies significant fever. He is mentating well. He is a little bit tachypneic. He lives at home with his partner. Has a daughter who helps with his finances. Patient states he does not want to be mechanically ventilated and does not want you have major procedures done at this time. Discharge Providers Provider Date of admission: 03/12/22 14:17 Discharge Date: 03/17/22 Primary care physician: Jeffrey Jennings MD Consults: 03/12/22 16:36 Consult to Tele-ticket worker Routine Comment: Consulting Provider: Becky Tele-intensivists Reason for consultation: Acidity Tester services 03/13/22 07:39 Consult to Physical Therapy Evaluate & Treat Comment: Physician Instructions: Evaluate and Treat 03/14/22 11:03 Consult to Occupational Therapy Evaluate & Treat Comment: Physician Instructions: Evaluate and treat Discharge provider: Jeffrey Jennings MD Summary Hospital Course Discharge Diagnosis: Septic shock requiring Levophed Pneumonia with underlying COPD recent hospitalization so treated as hospital-acquired Severe aortic stenosis Type 2 myocardial infarction Acute kidney injury on chronic kidney disease Fluid overload without evidence of acute systolic heart failure Hyperkalemia Spiculated right upper lobe 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 Patient had findings consistent with exacerbation of underlying COPD and pneumonia is the probable source blood cultures urine cultures chest x-ray examination was done. Patient was treated with Levophed and antibiotics and oxygen. Patient required blood pressure support for approximately 24 hours. Patient was given IV fluids also to maintain blood pressure as well as IV antibiotics. As infection improved his blood pressure improved after approximately 24 hours Levophed was stopped. Patient's IV fluids were decreased. Patient was stabilized from a blood pressure standpoint there was concern about severe aortic stenosis reviewed and discussed echocardiogram with Cardiology on-call. They felt that less likely his blood pressure and shock was due to severe aortic stenosis and more likely due to underlying infection. During his hospital stay patient had moderate elevation of his cardiac enzymes without significant acute changes or symptoms. This was thought to be due to demand ischemia due to his underlying infection sepsis and poor kidney perfusion. Patient's metoprolol and statin medication and aspirin were started when his blood pressure was stabilized Pneumonia. Patient had pneumonia and COPD. Patient was on oxygen had respiratory therapy nebulizers with bronchodilators and ipratropium and steroids. Patient required oxygen therapy above and beyond his normal use which was stabilized at the time of discharge. Acute kidney injury patient came in with significant creatinine and kidney injury of 4.2. Due to this patient had electrolyte abnormalities which needed to be monitored and adjust including hyperkalemia patient was treated appropriately with fluids diuretics and electrolyte management in the hospital Due to patient's significant fluid and sepsis he was a little fluid overloaded was given a little bit of Lasix before and during his hospital stay to help him manage his fluid and electrolyte abnormality Patient has a history of alcohol misuse and withdrawal had scheduled lorazepam in the hospital and had no signs of severe withdrawal during his hospital stay During his workup patient was found to see see a spiculated right upper lobe mass patient has history of lung cancer this is on the other side. He still smokes. Concerning for potential lung cancer or infection Patient's BMI is 41. He is quite weak the time of discharge unable to ambulate encouraged strongly for him to be sent to a halfway for discharge Exam Vital Signs (past 8 hours): - 03/17/22 00:00 Temperature 97.8 F Pulse Rate 80 Respiratory Rate 15 Blood Pressure 131/58 L Pulse Oximetry 95 Oxygen Flow Rate 0 Fraction of Inspired Oxygen 98 SaO2/FiO2 Ratio 332 Oxygen Delivery Method Room Air Oxygen Flow Rate 0 Objective Labs Result Diagrams: 03/17/22 04:50 03/17/22 04:50 Labs: Laboratory Results - last 24 hr 03/16/22 03/17/22 03/17/22 05:00 04:50 04:50 WBC 13.8 H RBC 3.16 L Hgb 9.6 L Hct 29.0 L MCV 92.0 MCH 30.3 MCHC 33.0 RDW 14.5 Plt Count 272 Neut % (Auto) Not Reportable Lymph % (Auto) Not Reportable [place] % (Auto) Not Reportable Eos % (Auto) Not Reportable Baso % (Auto) Not Reportable Lymph # (Auto) Not Reportable [place] # (Auto) Not Reportable Baso # (Auto) Not Reportable Total Counted 100 Seg Neutrophils % 78.0 H Band Neutrophils % 5.0 Lymphocytes % (Manual) 11.0 L Monocytes % (Manual) 6.0 Neutrophils # (Manual) 76255 H Platelet Estimate Adequate on smear RBC Morphology Normal morphology Sodium 141 Potassium 5.4 H Chloride 104 Carbon Dioxide 25 BUN 64 H Creatinine 1.70 H Estimated GFR 39 L BUN/Creatinine Ratio 37.6 H Glucose 109 Calcium 9.9 Magnesium 1.6 1.6 Iron TIBC % Saturation Transferrin 03/17/22 04:50 WBC RBC Hgb Hct MCV MCH MCHC RDW Plt Count Neut % (Auto) Lymph % (Auto) [place] % (Auto) Eos % (Auto) Baso % (Auto) Lymph # (Auto) [place] # (Auto) Baso # (Auto) Total Counted Seg Neutrophils % Band Neutrophils % Lymphocytes % (Manual) Monocytes % (Manual) Neutrophils # (Manual) Platelet Estimate RBC Morphology Sodium Potassium Chloride Carbon Dioxide BUN Creatinine Estimated GFR BUN/Creatinine Ratio Glucose Calcium Magnesium Iron 70 TIBC 275 % Saturation 25 Transferrin 222 PFSH Medical History Acute respiratory failure with hypoxia Chronic back pain (~1959) COPD (chronic obstructive pulmonary disease) Gout (~2011) History of urinary incontinence Lung cancer (~2007) Moderate aortic stenosis by prior echocardiogram Pancreatitis (~2005) Vision disorder Surgical History Anesthesia History of lung surgery (~03/2007) Family History Father Heart disease Grandmother Age: 82 Ovarian cancer, unspecified laterality Mother Diabetes mellitus Sister No problems noted. Social History marital status: household members: friend(s) Smoking Status: Current every day smoker alcohol intake: current substance use type: does not use Discharge Plan Discharge Plan Patient Disposition: Home Provider Discharge Comment: needs f/u next week Discharge orders & Medications Prescriptions: New amoxicillin-pot clavulanate 875-125 mg tablet 1 tab PO BID Qty: 14 0RF Continued lidocaine [Lidoderm] 5 % adhesive patch,medicated 1 patch TOP DAILY Qty: 15 0RF Rx Instructions: leave on most painful area for 12 hrs gabapentin 300 mg capsule 300 mg PO BEDTIME Qty: 30 1RF albuterol sulfate [Ventolin HFA] 90 mcg/actuation HFA aerosol inhaler 2 puff INHALATION Q4H PRN (Reason: Shortness Of Breath) Qty: 8.5 3RF Rx Instructions: 2 puffs every 4-6 hours as needed for shortness of breath - use with spacer (DME) BreatheRite MDI Spacer Spacer See Rx Instructions .Route Qty: 1 3RF Rx Instructions: As directed aspirin 81 mg tablet,chewable 81 mg PO DAILY fluticasone propion-salmeterol 250-50 mcg/dose blister with device 1 inh INHALATION BID Label Comments: INHALE ONE PUFF BY MOUTH TWO TIMES DAILY atorvastatin 20 mg tablet 20 mg PO BEDTIME Label Comments: TAKE 1 TABLET BY MOUTH EVERY NIGHT AT BEDTIME furosemide 40 mg Tablet 40 mg PO DAILY Qty: 30 0RF acetaminophen 325 mg Tablet 650 mg PO Q6H PRN (Reason: Fever/Mild Pain (1-3)) Qty: 30 0RF pantoprazole 40 mg Tablet,Delayed Release (Dr/Ec) 40 mg PO 0700 Qty: 20 0RF hydrocodone-acetaminophen 5-325 mg tablet 1 tab PO Q6H PRN (Reason: pain) Qty: 20 0RF Changed metoprolol tartrate 100 mg tablet 50 mg PO BID Qty: 60 0RF prednisone 20 mg Tablet 20 mg PO DAILY Qty: 10 0RF Discontinued lisinopril 40 mg Tablet 40 mg PO BID Follow up/Referrals: Jeffrey Jennings MD [Primary Care Provider] - Visit Report/Discharge Packet Stand Alone Forms: Patient Portal/API, Stroke Signs & Symptoms Discharge Data Primary Care Provider: Jeffrey Jennings
[2022-03-17 08:00] VITALS: BP 167/104; PULSE 76; RESP 23; TEMP 36.3; O2SAT 98
[2022-03-17] MEDS: BUDESONIDE 0.5 MG/2 ML NEB INH ×2 (08:03→08:24)
[2022-03-17] MEDS: ALBUTEROL/IPRATROPIUM 3 ML AMPUL INH (08:04)
--- NOTE | 2022-03-17 08:50 | CM.DPC ---
Addendum entered by Mirella Chen R.N. 03/17/22 11:33: Patient did well with P.T. P.T will update Dr. Jennings. Called Serge at [facility] and let him know that patient is discharging home today. Faxed over the face to face, orders, DC Summary, and today's P.T. note. Will update [facility]. Original Note: DCP Cont: Dr. Jennings did discharge orders for patient, but stated, he will not allow patient to go home if he does not pass P.T, will need to go to a alf facility. Updated P.T, asked if they can work with him this am. Spoke to patient, does not want to go to [facility], he is willing to go to [facility] for a very short time if needed, but hopefully will pass P.T.Rachel at [facility] can accept patient today if needed. P: DCP to continue to follow. Patient will go home with [facility] if he passes P.T, otherwise, will go to [facility]. Went ahead and completed a PASSR. Mirella Chen, ERIC/Airport Traffic Controller
[2022-03-17] MEDS: METOPROLOL IR 50 MG TABLET 100 MG PO (08:59)
[2022-03-17] MEDS: ASPIRIN 325 MG TABLET PO (08:59)
[2022-03-17] MEDS: PANTOPRAZOLE DR 40 MG TABLET PO (08:59)
[2022-03-17] MEDS: LORazepam 0.5 MG TABLET PO (08:59)
[2022-03-17] MEDS: predniSONE 20 MG TABLET 40 MG PO (08:59)
--- NOTE | 2022-03-17 09:43 | PT.IPTN ---
Current Diagnoses Sepsis, unspecified organism (03/12/22) Nonrheumatic aortic (valve) stenosis (03/12/22) Acute kidney failure, unspecified (03/12/22) Chronic kidney disease, stage 3b (03/12/22) Altered mental status, unspecified (03/12/22) Cardiogenic shock (03/12/22) Severe sepsis with septic shock (03/12/22) Physical Therapy Treatment Note M2 PT-IP Current Condition Start: 03/13/22 11:47 Freq: Status: Active Protocol: Document 03/13/22 11:49 BC (Rec: 03/13/22 12:03 BC [id number]) Physical Therapy Current Condition Current Condition Evaluation Date 03/13/22 Treatment Diagnosis sepsis; difficulty with ambulation, difficulty with transfers Onset Date 03/11/22 M3 PT-IP Subjective Start: 03/13/22 11:47 Freq: Status: Active Protocol: Document 03/17/22 09:29 LJ (Rec: 03/17/22 09:43 LJ [id number]) Subjective Physical Therapy Visit Type Type Treatment Note Visit Start Time 09:04 Visit Stop Time 09:28 Total Visit Minutes 24 Physical Therapy Visit Comments Patient Comments Pt is willing to participate with PT Patient Goals Pt wants to go home today. Therapy Pain Assessment Pain When Pain Assessed At Rest Pain Present Pain Present Pain Reported Location Back Scale Used not quantified M4 PT-IP Mobility and Gait Start: 03/13/22 11:47 Freq: Status: Active Protocol: Document 03/17/22 09:29 LJ (Rec: 03/17/22 09:43 LJ [id number]) PT-Transfer Assessment Sit to and From Stand Sit to and from Stand Standby Assistance,Contact Guard Assistance,1 Person Assistance,Use of Upper Extremities Equipment Transfer Assistive Device Gait Belt,Front Wheeled Walker Transfers Transfer Destination Chair,Wheelchair Transfer Ability Level of Assist Standby Assistance,Contact Guard Assistance,1 Person Assistance,Use of Upper Extremities Comments Mobility Comments Pt sitting in chair upon arrival. Transfered sit>stand CGA-SBA using UEs on arm rest and FWW. Pt ambulated to WC ~ 15' SBA. Pt wheeled to stairs. Completed stairs x2 then ambulated back to room ~75' SBA with cues to keep FWW closer to his body. Pt returned to sitting in chair SBA with controlled descent using UEs. Gait Assessment Gait Gait Assistance Required: Standby Assistance,1 Person Assist Assistive Devices Assistive Device Gait Belt,Front Wheeled Walker Gait Deviations General Gait Pattern Antalgic,Decreased Stride Length,Decreased Feet Clearance,Flexed Trunk Factors Limiting Gait Function Factors Limiting Gait Function Decreased Activity Tolerance, Decreased Strength,Limited Range of Motion,Pain,Poor Balance,Poor Safety Awareness, Respiratory Distress Comments Gait Comments Pt completed stair and ambulation without excess SOB. Able to carry on conversation while walking. He demonstrates improved gait and safety awareness taking his time rather than rushing. Pt has met goals for DC home with assist Stair Climbing Assessment Technique/Endurance Stair Climbing Direction Ascend and Descend Stair Climbing Technique Step to Step Number of Steps Climbed 3 Stair Climbing Set # Repetitions (reps) 2 Comments Stair Climbing Comments Pt completed stairs x2 using right ascending rail without LOB or lack of safety awareness. Stood at top of stairs ~45 sec for rest break before descending. PT-Balance Assessment Sitting Balance and Reactions Static Sitting Balance Ability Good Dynamic Sitting Balance Ability Fair Standing Balance and Reactions Static Standing Balance Ability Fair Dynamic Standing Balance Ability Fair Device Used FWW M5 PT-IP Objective Assessments Start: 03/13/22 11:47 Freq: Status: Active Protocol: Document 03/13/22 11:49 BC (Rec: 03/13/22 12:03 BC [id number]) Orientation Orientation/Cognition Level of Alertness Alert Orientation Name,Date,Place,Situation Strength Upper Extremity Strength Assessment Bilaterally Impaired Shoulder 3+ to 4/5 Elbow 4/5 Lower Extremity Strength Assessment Bilaterally Impaired Hip 3+ to 4/5 Knee 3+ to 4/5 Ankle 3+ to 4/5 Comments Strength Comments Prior hx of hip pain with radiculopathy into LLE. Sensation Assessment Sensation Light Touch Impaired M6 PT-IP Treatment Start: 03/13/22 11:47 Freq: Status: Active Protocol: Document 03/17/22 09:29 LJ (Rec: 03/17/22 09:43 LJ [id number]) Physical Therapy Treatment Education Education Provided Safety M7 PT-IP Assessment and Plan Start: 03/13/22 11:47 Freq: Status: Active Protocol: Document 03/17/22 09:29 LJ (Rec: 03/17/22 09:43 LJ [id number]) PT Summary Assessment and Plan Potential Rehabilitation Potential Good Status of Condition at Evaluation Evolving Summary Impairments Pain,ROM,Strength,Balance, Coordination,Bed Mobility, Transfers,Gait,Activity Tolerance Progress Towards Goals Safe For Discharge,Goals Met Assessment Summary Todd chacon ability to ambulate set goal distance and complete stairs safely. With assistance, he is able to DC today if medically cleared. Goals Bed Mobility Goal Contact Guard Assistance Transfer Goal Contact Guard Assistance Gait Goal Contact Guard Assistance Gait Distance 75 Other Goals Progress gait; Ascend/descend 4-5 steps with railing and CGA Frequency of Treatment Frequency Of Treatment Once a Day Treatment Plan Physical Therapy Treatment Plan Bed Mobility Training,Transfer Training,Gait Training, Therapeutic Exercise,Balance Retraining,Discharge Planning, Neuromuscular Re-ed Precautions Other Precautions Cardiac Recommendations To Nursing Amount of Assist Needed 1 Person Assist Discharge Recommendations PT Discharge Recommendations Home with Assistance,Home with 24/ Assist Available,Home Health Transportation Needs at Discharge Private Vehicle
--- NOTE | 2022-03-17 11:13 | OT.IP.TRT ---
Current Diagnoses Sepsis, unspecified organism (03/12/22) Nonrheumatic aortic (valve) stenosis (03/12/22) Acute kidney failure, unspecified (03/12/22) Chronic kidney disease, stage 3b (03/12/22) Altered mental status, unspecified (03/12/22) Cardiogenic shock (03/12/22) Severe sepsis with septic shock (03/12/22) Occupational Therapy Treatment Note M2 OT-IP Current Condition Start: 03/14/22 18:12 Freq: Status: Active Protocol: Document 03/14/22 12:30 [facility] (Rec: 03/14/22 18:47 [facility] [id number]) Occupational Therapy Current Condition Current Condition Evaluation Date 03/14/22 Treatment Diagnosis Sepsis Diagnosis Onset Date 03/12/22 M3 OT- IP Subjective and Pain Start: 03/14/22 18:12 Freq: Status: Active Protocol: Document 03/17/22 10:44 [facility] (Rec: 03/17/22 11:25 [facility] [id number]) OT- Subjective Occupational Therapy Visit Type Type Treatment Note Visit Start Time 10:44 Visit Stop Time 11:13 Total Visit Minutes 29 Occupational Therapy Visit Comments Patient Comments Pt not wanting to shower here in the hospital but agreed to go over energy conservation and do [place] MAking Part B as pt feels that he will be driving soon. Patient/Caregiver Goals To go home OT Pain Assessment Pain When Pain Assessed At Rest Pain Present Pain Present Denied Pain M5 OT- IP IADL's Start: 03/14/22 18:12 Freq: Status: Active Protocol: Document 03/14/22 12:30 [facility] (Rec: 03/14/22 18:47 [facility] [id number]) OT-Instrumental Activities of Daily Living Home Safety Awareness Ability to Problem Solve Emergency Able to Problem Solve Situations Medication Management Medication Management Caregiver Provides Supervision Meal Preparation Meal Preparation Caregiver Provides Assist Washing Machine Assembler Washing Machine Assembler Caregiver Provides Assist M6 OT- IP Functional Cognition Start: 03/14/22 18:12 Freq: Status: Active Protocol: Document 03/17/22 10:44 [facility] (Rec: 03/17/22 11:25 [facility] [id number]) Cognitive Factors Limiting Selfcare Function Cognitive Ability Level of Alertness Alert Patient Orientation Name,Place,Situation Attention Span Ability Capable of Focused Attention, Capable of Sustained Attention Ability to Follow Commands Able to Follow One Step Commands Memory Description Short Term Impaired,Working Impaired Executive Function Ability Unable to Remember Details Cognitive Comments Cognitive Assessment Comments Pt scored 445 seconds and MOD vc to recall the directions on [place] Making Part B which implies severe impairments for task switching, speed of processing, executive functioning, mental flexibility, and visual scanning. Pt surprised that he was not able to calculate numbers in his head at this time. Pt agreed that he will not be driving at this time. Pt also has tremors in his right hand which can also be affecting his time for the assessment. M7 OT- IP Mobility and Balance Start: 03/14/22 18:12 Freq: Status: Active Protocol: Document 03/17/22 10:44 [facility] (Rec: 03/17/22 11:25 [facility] [id number]) OT- Bed Mobility Assessment Supine to Sit Supine to Sit Assist Standby Assistance OT-Transfer Assessment Comments Mobility Comments Pt not wanting to get up at this time. OT- Balance Assessment Sitting Balance and Reactions Static Sitting Balance Ability Normal Dynamic Sitting Balance Ability Good M8 OT- IP Objective Assessments Start: 03/14/22 18:12 Freq: Status: Active Protocol: Document 03/14/22 12:30 [facility] (Rec: 03/14/22 18:47 [facility] [id number]) OT Gross Range of Motion Upper Extremity Range of Motion Assessment Within Functional Limits OT Strength Upper Extremity Strength Assessment Within Functional Limits OT-Muscle Tone Assessment Muscle Tone WNL Yes M9 OT- IP Assessment and Plan Start: 03/14/22 18:12 Freq: Status: Active Protocol: Document 03/17/22 10:44 [facility] (Rec: 03/17/22 11:25 [facility] [id number]) OT Summary Assessment and Plan Potential Rehabilitation Potential Good Analytic Complexity at Evaluation Moderate Summary OT Impairments Balance,Functional Mobility, Grooming,Dressing,Toileting, Bathing,Toilet Transfers, Shower Transfers,Activity Tolerance Progress Towards Goals Progressing Toward Goals Assessment Summary Pt not wanting to get up at this time, per APPLICATION SUPPORT LEAD pt has is SBA for mobility needs at this time. Pt having difficulty with executive thinking and scored 445 seconds on [place] Making part B which implied severe impairments for task switching, visual attention, executive functioning, mental flexibility and speed of processing. Pt will benefit from 29/09 available assist at home and HH. Goals Dressing Goal Independent Toileting Goal Independent Bathing Goal Independent Toilet Transfer Goal Independent Shower Transfer Goal Independent Days to Meet Goals 7 Frequency of Treatment Frequency Of Treatment Once a Day Discharge Recommendations OT Discharge Recommendations Home with 29/09 Assist Available,Home Health Transportation Needs at Discharge Private Vehicle
--- NOTE | 2022-03-17 13:54 | PC.NURSE ---
Per P.T. patient cleared to discharge to home today with home health instead of proceeding with SNF. Patient is adamant that he does not want to go to SNF anyways and was determined to go home with his and his caregiver. PICC line and PIV dc'd intact. Discharge instructions and home care hand out reviewed with patient and his . Follow up appointment was scheduled for patient to see Dr. Jennings. Patient instructed to seek medical care for new or worsening symptoms. Patient was escorted out via wheelchair by APPLIANCE PAINTER AND REFINISHER to discharge to home with all his belongings.
== END 2022-03-17 13:25 | disposition home or self-care (01) | DRG 871 ==
LOC: ED 11:14 → ICU 14:20 → AC 03-16 17:16
PROVIDERS: Family Medicine; Admitting Provider Family Medicine; Emergency Provider Emergency Medicine; Family Provider Family Medicine; PCP Family Medicine; Referring Provider Emergency Medicine; Visit Provider Family Medicine
DX: A41.9 Sepsis, unspecified organism (principal); J18.9 Pneumonia, unspecified organism; R65.21 Severe sepsis with septic shock; N17.9 Acute kidney failure, unspecified; J44.1 Chronic obstructive pulmonary disease with (acute) exacerbation; I24.8 Other forms of acute ischemic heart disease; I35.0 Nonrheumatic aortic (valve) stenosis; F17.210 Nicotine dependence, cigarettes, uncomplicated; E78.5 Hyperlipidemia, unspecified; N18.30 Chronic kidney disease, stage 3 unspecified; M10.9 Gout, unspecified; E87.5 Hyperkalemia; E83.42 Hypomagnesemia; F10.90 Alcohol use, unspecified, uncomplicated; I25.10 Atherosclerotic heart disease of native coronary artery without angina pectoris; D64.9 Anemia, unspecified; Y90.0 Blood alcohol level of less than 20 mg/100 ml; Z20.822 Contact with and (suspected) exposure to COVID-19; Z66 Do not resuscitate
CPT/HCPCS: 0241U; 36415; 36569; 36592; 71045; 71250; 74176; 80048; 80053; 80320; 81001; 82550; 82553; 82570; 83540; 83550; 83605; 83690; 83735; 83880; 84145; 84300; 84484; 85007; 85014; 85018; 85025; 85610; 87040; 87086; 87797; 93005; 93010; 94640; 94762; 96365; 96366; 96367; 96368; 96375; 97116; 97162; 97166; 97530; 99223; 99233; 99238; 99285; 99291; 99292; G0390; J0171; J0696; J1644; J1650; J1940; J1956; J2543; J3475; J7613

== ENCOUNTER → 2022-04-15 14:43 | Outpatient (CLI) | payer MEDICARE, OTHER, SELFPAY ==
[2022-03-12 14:34] VITALS: BMI 41.1
--- NOTE | 2022-04-15 14:53 | DI.CT.S_ITS ---
PROCEDURE: CT CHEST WO CON INDICATIONS: right lung nodule TECHNIQUE: Noncontrast 5 mm thick sections acquired from the pulmonary apices to the posterior costophrenic angles. 1 mm lung window, 5 mm thick coronal and sagittal and 7 mm axial MIP reformats were then acquired. For radiation dose reduction, the following was used: automated exposure control, adjustment of mA and/or kV according to patient size. COMPARISON: [facility], CT, ANGIOGRAPHY CHEST, 11/24/2013, 9:40. [facility], CT, CT CHEST ABD PEL WO CON, 03/12/2022, 8:15. [facility], CR, XR CHEST 1V, 03/16/2022, 10:29. FINDINGS: Image quality: Adequate Lungs and pleura: Postsurgical changes of the left lung, possible prior upper lobectomy. No significant interval change in the previously demonstrated irregular 1.1 cm nodule at the right lung apex (). Severe emphysema redemonstrated. No pleural effusion. Mediastinum: No pericardial effusion. Multivessel coronary artery calcifications and/or stents. No mediastinal adenopathy by size criteria. Thoracic aorta and central pulmonary arteries are normal in size. Esophagus is normal in caliber. No hiatal hernia. Bones and chest wall: Multilevel degenerative change of the visualized spine. Changes of DISH are present. No axillary or supraclavicular adenopathy by size criteria. Abdomen: Small left adrenal adenoma not significantly changed. IMPRESSION: No significant interval change in the previously demonstrated irregular 1.1 cm nodule at the right lung apex. This is a nonspecific finding with differential considerations including neoplasm or sequela of infection/inflammation. Continued follow-up is recommended, could consider PET-CT and/or follow-up chest CT for example in 3 months or other interval at clinical discretion. Dictated by: Darren Rabago M.D. on 04/16/2022 at 11:17 Approved by: Darren Rabago M.D. on 04/16/2022 at 11:30
== END ==
PROVIDERS: Family Provider Family Medicine; PCP Family Medicine; Referring Provider Internal Medicine Hematology & Oncology; Visit Provider Internal Medicine Hematology & Oncology
DX: R91.1 Solitary pulmonary nodule (principal)
CPT/HCPCS: 71250

== ENCOUNTER 2022-04-21 12:46 | Emergency (ER) | payer MEDICARE, OTHER, SELFPAY ==
[2022-03-12 14:34] VITALS: BMI 41.1
--- NOTE | 2022-04-21 12:51 | DI.RAD.S_ITS ---
PROCEDURE: XR HIP W PEL IF DONE RT 2V INDICATIONS: Severe R hip pain, no injury TECHNIQUE: 3 views of the pelvis and right hip were acquired. COMPARISON: [facility], , HIP 2V RIGHT, 08/12/2007, 8:40. FINDINGS: Bones: Moderate bilateral hip osteoarthritis. No fractures or dislocations. No suspicious bony lesions. The visualized pelvic ring appears intact. Soft tissues: No suspicious soft tissue calcifications or masses. IMPRESSION: No fracture or other acute finding. Moderate bilateral bilateral hip osteoarthritis. Dictated by: Jeffrey Oliveira M.D. on 04/21/2022 at 14:06 Approved by: Jeffrey Oliveira M.D. on 04/21/2022 at 14:07
--- NOTE | 2022-04-21 12:51 | DI.RAD.S_ITS ---
PROCEDURE: XR LUMBAR SPINE 2-3V INDICATIONS: R hip and low back pain TECHNIQUE: 3 views of the lumbar spine were acquired. COMPARISON: [facility], [place], XR LUMBAR SPINE 2-3V, 01/08/2022, 15:19. FINDINGS: Bones: Moderate lumbar dextroscoliosis centered at L3-L4. Vertebral body heights maintained. No listhesis. Severe diffuse lumbar spine degenerative changes. Soft tissues: Overlying bowel gas pattern is normal. No suspicious soft tissue calcifications. IMPRESSION: Severe degenerative changes. No acute finding. Dictated by: Jeffrey Oliveira M.D. on 04/21/2022 at 14:07 Approved by: Jeffrey Oliveira M.D. on 04/21/2022 at 14:08
[2022-04-21 12:52] VITALS: BP 121/68; PULSE 84; RESP 20; TEMP 36.9; O2SAT 99; BMI 38.0
[2022-04-21 13:06] LABS: Add Manual Diff / Slide Review NO; Basophils Absolute Auto 100 /uL (0-100); Basophils Percent Auto 0.7 % (0-2); Eosinophils Absolute Auto 300 /uL (0-450); Eosinophils Percent Auto 2.6 % (2-4); Hematocrit 22.8 % (41-53); Hemoglobin 7.6 g/dL (13.5-17.5); Lymphocytes Absolute Auto 1400 /uL (1100-4500); Lymphocytes Percent Auto 13.5 % (25-40); Mean Corpuscular HGB Conc 33.4 % (30-36); Mean Corpuscular Hemoglobin 30.9 PG (26-34); Mean Corpuscular Volume 92.5 fL (80-100); Monocytes Absolute Auto 1100 /uL (0-900); Monocytes Percent Auto 10.8 % (3-14); Neutrophils Absolute Auto 7400 /uL (1500-7000); Neutrophils Percent Auto 72.4 % (50-75); Platelet Count 293 X10^3/uL (150-400); Red Blood Cell Count 2.47 X10^6/uL (4.5-5.9); Red Cell Distribution Width 13.7 % (11.6-14.8); White Blood Cell Count 10.3 X10^3/uL (4.5-11.0)
[2022-04-21] MEDS: fentaNYL 100 MCG/2 ML INJ 50 MCG IV (13:07)
[2022-04-21 13:26] LABS: Erythrocyte Sedimentation Rate > 140 MM/HR (0-15)
[2022-04-21 13:28] LABS: Alanine Aminotransferase 14 IU/L (<50); Albumin 3.5 g/dL (3.5-5.0); Albumin Globulin Ratio 1.1 (1.0-2.8); Alkaline Phosphatase 78 U/L (38-126); Aspartate Aminotransferase 18 IU/L (17-59); BUN Creatinine Ratio 22.1 (6-22); Bilirubin Total 0.2 mg/dL (0.2-1.3); Blood Urea Nitrogen 36 mg/dL (9-20); C-Reactive Protein Quant 4.5 mg/dL (<1.0); Calcium 9.1 mg/dL (8.4-10.2); Carbon Dioxide 23 mmol/L (22-32); Chloride 107 mmol/L (98-107); Estimated Glomerular Filt Rate 41 mL/min (>60); Globulin 3.2 g/dL (1.7-4.1); Glucose 90 mg/dL (80-110); HEMOLYSIS < 15 (0-50); Sodium 143 mmol/L (137-145); Total Protein 6.7 g/dL (6.3-8.2)
--- NOTE | 2022-04-21 14:02 | ED.BACK ---
HPI - Back Pain/Injury General Chief Complaint: Back Pain/Injury Stated Complaint: atruamtic right hip / back pain Time Seen by Provider: 04/21/22 12:47 History of Present Illness HPI Narrative: 86-year-old male smoker with history of coronary artery disease, CHF is a DNR and presents with right lower back pain and right hip pain in the absence of any trauma. He states that the pain has been worsening over the past few days and despite taking Tylenol he has little relief. He states on occasion he has sharp stabbing pain that radiates down his right leg. He denies fever or chills and takes no blood thinners. He denies any loss of control of bowel or bladder. He denies any footdrop or lower extremity weakness. As stated he is had no trauma or injury. He is not dizzy nor weak or lightheaded. He denies chest pain or shortness of breath. Related Data Home Medications Medication Instructions Recorded Confirmed aspirin 81 mg chewable tablet 81 mg PO DAILY 12/17/17 03/27/22 atorvastatin 20 mg tablet 20 mg PO BEDTIME 02/11/22 03/27/22 fluticasone 250 mcg-salmeterol 50 1 inh inhalation BID 02/11/22 03/27/22 mcg/dose blistr powdr for inhalation Previous Rx's Medication Instructions Recorded albuterol sulfate 90 mcg/actuation 2 puff inhalation Q4H PRN 06/20/21 aerosol inhaler (Ventolin HFA) Shortness Of Breath #8.5 grams inhalational spacing device #1 ea 06/20/21 (BreatheRite MDI Spacer) gabapentin 300 mg capsule 300 mg PO BEDTIME #30 caps 01/27/22 lidocaine 5 % topical patch 1 patch topical DAILY #15 ea 01/27/22 (Lidoderm) acetaminophen 325 mg tablet 650 mg PO Q6H PRN Fever/Mild Pain 02/11/22 (1-3) #30 tabs hydrocodone 5 mg-acetaminophen 325 1 tab PO Q6H PRN pain #20 tabs 03/27/22 mg tablet cyclobenzaprine 10 mg tablet 10 mg PO TID PRN muscle spasm #14 04/21/22 tabs gabapentin 300 mg capsule 300 mg PO BEDTIME #14 caps 04/21/22 methylprednisolone 4 mg tablets in See Rx Instructions PO .COMPLEX 04/21/22 a dose pack (Medrol ([place])) #21 ea Allergies Allergy/AdvReac Type Severity Reaction Status Date / Time No Known Drug Allergies Allergy Verified 01/27/22 09:34 Review of Systems Review of Systems Narrative: GENERAL: Denies chills, fatigue, malaise, fever, sweats. HEENT: Denies sinus pain, ear pain, sore throat, difficulty swallowing, dizziness. RESPIRATORY: Denies dyspnea, cough, wheezing, hemoptysis, sputum. CARDIOVASCULAR: Denies chest pain, palpitations, orthopnea, edema, GASTROINTESTINAL: Denies nausea, vomiting, abdominal pain, diarrhea, constipation, melena. : Denies dysuria, frequency, incontinence, hematuria, urinary retention. MUSCULOSKELETAL: See HPI SKIN: Denies rash, skin lesions, or other NEUROLOGIC: See HPI PSYCHIATRIC: No concerning psychosocial issues. 12 point review of systems is negative except for those stated above Patient History Medical History Acute respiratory failure with hypoxia Chronic back pain (~1959) COPD (chronic obstructive pulmonary disease) Gout (~2011) History of lung cancer History of urinary incontinence Lung cancer (~2007) Moderate aortic stenosis by prior echocardiogram Pancreatitis (~2005) Vision disorder Surgical History Anesthesia History of lung surgery (~03/2007) Family History Father Heart disease Grandmother Age: 82 Ovarian cancer, unspecified laterality Mother Diabetes mellitus Sister No problems noted. Social History marital status: household members: friend(s) Smoking Status: Current every day smoker alcohol intake: former (stopped a couple of months ago.) substance use type: does not use Smoking Status: Current every day smoker alcohol intake frequency: 3 or more drinks per day Substance Use Type: does not use Exam Narrative Exam Narrative: GENERAL: [86] year old patient appears stated age. Well-developed patient, in mild distress. HEAD: Atraumatic. Normocephalic. EYES: Pupils equal round and reactive. Extraocular motions intact. No scleral icterus. No injection or drainage. ENT: Nose without bleeding, purulent drainage. Throat without erythema, tonsillar hypertrophy or exudate. Airway patent. NECK: Trachea midline. Non tender CARDIOVASCULAR: Regular rate and rhythm without murmurs, gallops, or rubs. RESPIRATORY: Clear to auscultation. Breath sounds equal bilaterally. No wheezes, rales, or rhonchi. GASTROINTESTINAL: Abdomen soft, non-tender, nondistended. EXTREMITIES: No edema or joint tenderness. BACK: long chain quiller tender but free of any obvious external abnormalities. Patient exam notes decreased range of motion and muscle spasm, but no CVA tenderness, or vertebral point tenderness. There are no symptoms of cauda equina such as saddle anesthesia, and decreased reflexes, decreased sensation or strength. NEURO: AOx3. SKIN: No rash or erythema of visible areas Initial Vital Signs Initial Vital Signs: Vital Signs Temperature 98.4 F 04/21/22 12:52 Pulse Rate 84 04/21/22 12:52 Respiratory Rate 20 04/21/22 12:52 Blood Pressure 121/68 04/21/22 12:52 Pulse Oximetry 99 04/21/22 12:52 Oxygen Delivery Method 04/21/22 12:52 Course Orders Ordered: Discontinued Medications Dexamethasone (Dexamethasone 4 Mg/Ml Vial) 4 mg IV NOW ONE Stop: 04/21/22 16:24 Last Admin: 04/21/22 16:35 Dose: 4 mg Documented By: DOMINIQUE Fentanyl (Fentanyl 100 Mcg/2 Ml Inj) 50 mcg IV NOW ONE Stop: 04/21/22 13:03 Last Admin: 04/21/22 13:07 Dose: 50 mcg Documented By: AMU Gabapentin (Gabapentin 300 Mg Capsule) 300 mg PO NOW ONE Stop: 04/21/22 16:24 Last Admin: 04/21/22 16:35 Dose: 300 mg Documented By: RL Vital Signs Vital signs: Vital Signs - 8 hr 04/21/22 12:52 04/21/22 16:46 Temperature 98.4 F Pulse Rate 84 89 Respiratory Rate 20 Blood Pressure 121/68 129/62 Pulse Oximetry 99 97 Oxygen Delivery Method Room Air Room Air MDM - Back Pain/Injury Lab Data 04/21/22 13:00 04/21/22 13:00 Labs: Lab Results 04/21/22 04/21/22 Range/Units 13:00 13:00 WBC 10.3 (4.5-11.0) X10^3/uL RBC 2.47 L (4.5-5.9) X10^6/uL Hgb 7.6 L (13.5-17.5) g/dL Hct 22.8 L (41-53) % MCV 92.5 (80-100) fL MCH 30.9 (26-34) PG MCHC 33.4 (30-36) % RDW 13.7 (11.6-14.8) % Plt Count 293 (150-400) X10^3/uL Neut % (Auto) 72.4 (50-75) % Lymph % (Auto) 13.5 L (25-40) % Calloway % (Auto) 10.8 (3-14) % Eos % (Auto) 2.6 (2-4) % Baso % (Auto) 0.7 (0-2) % Neut # (Auto) 7400 H (0696-9299) /uL Lymph # (Auto) 1400 (1113-6450) /uL C[place]ay # (Auto) 1100 H (0-900) /uL Eos # (Auto) 300 (0-450) /uL Baso # (Auto) 100 (0-100) /uL ESR > 140 H (0-15) MM/HR Sodium 143 (137-145) mmol/L Potassium 5.0 (3.4-5.1) mmol/L Chloride 107 (98-107) mmol/L Carbon Dioxide 23 (22-32) mmol/L BUN 36 H (9-20) mg/dL Creatinine 1.63 H (0.66-1.25) mg/dL Estimated GFR 41 L (>60) mL/min BUN/Creatinine Ratio 22.1 H (6-22) Glucose 90 (80-110) mg/dL Calcium 9.1 (8.4-10.2) mg/dL Total Bilirubin 0.2 (0.2-1.3) mg/dL AST 18 (17-59) IU/L ALT 14 (<50) IU/L Alkaline Phosphatase 78 (38-126) U/L C-Reactive Protein 4.5 H (<1.0) mg/dL Total Protein 6.7 (6.3-8.2) g/dL Albumin 3.5 (3.5-5.0) g/dL Globulin 3.2 (1.7-4.1) g/dL Albumin/Globulin Ratio 1.1 (1.0-2.8) Urine Dip Bedside Urine Glucose Negative Bedside Urine Bilirubin - Negative Bedside Urine Ketone - Negative Urine Specific [place] 1.020 Bedside Urine Occult Blood - Negative Bedside Urine pH 5.5 Bedside Urine Protein - Negative Bedside Urine Urobilinogen - Negative Bedside Urine Nitrite - Negative Bedside Urine Leukocytes - Negative Esterase MDM Narrative Medical decision making narrative: CC: 86-year-old with low back pain, right hip pain and radiation down right leg. Complicating co-morbidities: Age, prior cancer Data collected from: Patient Medical records reviewed: Multiple prior notes evaluated Differential considered, but not limited to: Muscle spasm, radiculopathy, intra-abdominal or pelvic hematoma, metastatic lesion versus other Exam documented above, pertinent findings include: Pain but no measurable weakness, numbness, saddle anesthesia, depressed reflexes Lab Test results independently reviewed as above. Pertinent findings: Patient with slight decrease in H&H, patient asymptomatic, no evidence of bleeding Independently reviewed EKG as above Imaging studies independently reviewed: No obvious fracture of lumbar spine, pelvis or hip, no evidence of intra-abdominal or pelvic hematoma or bleeding, no suspicious lesions Treatments: Fentanyl, gabapentin, Decadron Re-evaluations: Improved symptoms Discussion: Patient with nontraumatic back pain with radicular features is absent of any red flags to suggest neurosurgical emergency is present, imaging is unremarkable, labs are stable for him. Pain improved with the above-stated therapies. Disposition: see below, along with detailed discharge instructions that have been reviewed with patient as well as indications for ED re-evaluation and additional outpatient follow up Discharge Plan Departure Patient Disposition: Home Clinical Impression: Right lumbar radiculopathy Instructions: DI for Lumbar Radiculopathy Activity Restrictions/Additional Instructions: *You have been diagnosed with [right-sided lumbar radiculopathy. As we discussed your blood work and imaging are reassuring and there is no evidence of fracture of your back, pelvis or hip, also no evidence of bleeding or metastatic disease to the bone. *What to do: *Please continue to take your regular medications as directed. [x ] New medication prescriptions sent to your pharmacy: [facility] ] [ ] New medication written as a paper prescription [ ] No new medications given *Please follow up with your primary care provider in 2-3 days, call for an appointment. Let them know you were seen in the Emergency Department and that we ask that you be seen in follow up. We will electronically transmit a record of today's note if your PCP is in our system *If you do not have a primary care provider please contact the [facility] Resource line at [phone]. They will ask some questions about your medical history and help get you set up with a doctor in the community. *Return to Emergency Department if you should have any new, worsening or concerning symptoms, such as [fever greater than 101 F, shaking chills, worsening pain, persistent vomiting or other bothersome symptoms] Prescriptions: New cyclobenzaprine 10 mg tablet 10 mg PO TID PRN (Reason: muscle spasm) Qty: 14 0RF gabapentin 300 mg capsule 300 mg PO BEDTIME Qty: 14 0RF methylprednisolone [Medrol ([place])] 4 mg tablets,dose pack See Rx Instructions .ROUTE .COMPLEX Qty: 21 0RF Rx Instructions: orally per package directions No Action lidocaine [Lidoderm] 5 % adhesive patch,medicated 1 patch TOP DAILY Qty: 15 0RF Rx Instructions: leave on most painful area for 12 hrs gabapentin 300 mg capsule 300 mg PO BEDTIME Qty: 30 1RF albuterol sulfate [Ventolin HFA] 90 mcg/actuation HFA aerosol inhaler 2 puff INHALATION Q4H PRN (Reason: Shortness Of Breath) Qty: 8.5 3RF Rx Instructions: 2 puffs every 4-6 hours as needed for shortness of breath - use with spacer (DME) BreatheRite MDI Spacer Spacer See Rx Instructions .Route Qty: 1 3RF Rx Instructions: As directed hydrocodone-acetaminophen 5-325 mg tablet 1 tab PO Q6H PRN (Reason: pain) Qty: 20 0RF aspirin 81 mg tablet,chewable 81 mg PO DAILY fluticasone propion-salmeterol 250-50 mcg/dose blister with device 1 inh INHALATION BID Label Comments: INHALE ONE PUFF BY MOUTH TWO TIMES DAILY atorvastatin 20 mg tablet 20 mg PO BEDTIME Label Comments: TAKE 1 TABLET BY MOUTH EVERY NIGHT AT BEDTIME acetaminophen 325 mg Tablet 650 mg PO Q6H PRN (Reason: Fever/Mild Pain (1-3)) Qty: 30 0RF Referrals: Jeffrey Jennings MD [Primary Care Provider] - Stand Alone Forms: Patient Portal/API
--- NOTE | 2022-04-21 14:58 | DI.CT.S_ITS ---
PROCEDURE: CT ABDOMEN PELVIS W CON INDICATIONS: severe lumbar pain, right hip pain TECHNIQUE: After the administration of oral and IV contrast, axial sections were acquired from the lung bases to the pubic symphysis. Coronal and sagittal reformats were performed. For radiation dose reduction, the following was used: automated exposure control, adjustment of mA and/or kV according to patient size. COMPARISON: [facility], CR, XR LUMBAR SPINE 2-3V, 04/21/2022, 12:53. [facility], CT, CT CHEST ABD PEL WO CON, 03/12/2022, 8:15. FINDINGS: Image quality: Excellent. Lung bases: Right lung base punctate pulmonary nodule. Trace left pleural effusion. Heart: Aortic valvular calcification. Coronary artery calcifications. ABDOMEN: Liver: No focal lesion. Gallbladder: Within normal limits. Biliary ducts: Unremarkable. Pancreas: No peripancreatic fluid collection. Spleen: Unremarkable. Adrenal Glands: Mild thickening of the left adrenal gland is unchanged. Kidneys and Ureters: No hydronephrosis. Low-density small right renal cyst. Stomach and Bowel: Stomach is not distended. No small bowel obstruction. A few colonic diverticuli. Normal appendix. Peritoneum: No abnormal intraperitoneal fluid. No free air. Ventral Wall: No hernia. Abdominal Nodes: No retroperitoneal or mesenteric adenopathy by size criteria. Vessels: Aorta and inferior vena cava are normal in size. Circumferential calcified atherosclerotic plaque. PELVIS: Pelvic Organs: Prominent prostate gland. Bladder: No stone. Pelvic Nodes: No enlarged lymph nodes. Miscellaneous: Possible left inguinal hernia. Bones: No suspicious lesion. Moderate to severe degenerative change. Multilevel DDD. No compression fracture. IMPRESSION: 1. No compression fracture. 2. No acute inflammatory process. 3. Trace left pleural fluid. Dictated by: Jhoan Qureshi M.D. on 04/21/2022 at 15:26 Approved by: Jhoan Qureshi M.D. on 04/21/2022 at 15:33
[2022-04-21] MEDS: DEXAMETHASONE 4 MG/ML VIAL IV (16:35)
[2022-04-21] MEDS: GABAPENTIN 300 MG CAPSULE PO (16:35)
[2022-04-21 16:46] VITALS: BP 129/62; PULSE 89; O2SAT 97
== END 2022-04-21 17:10 | disposition home or self-care (01) ==
PROVIDERS: Emergency Provider Emergency Medicine; Family Provider Family Medicine; PCP Family Medicine
DX: M54.16 Radiculopathy, lumbar region (principal)
CPT/HCPCS: 36415; 72100; 73502; 74177; 80053; 81003; 85025; 85651; 86140; 96374; 96375; 99284; J1100; J3010; Q9967

== ENCOUNTER 2022-05-05 07:51 | Inpatient (IN) | payer MEDICARE, OTHER, SELFPAY ==
[2022-03-12 14:34] VITALS: BMI 41.1
[2022-05-05] VITALS (19 sets, daily range): BP systolic 101–152; BP diastolic 53–84; PULSE 64–95; RESP 17–23; TEMP 36.2–36.4; O2SAT 92–100; BMI 36.6
--- NOTE | 2022-05-05 08:00 | ED.GENADULT ---
HPI - General Adult General Chief complaint: Fall Stated complaint: GLF, Right leg pain Time Seen by Provider: 05/05/22 07:56 Source: patient and EMS Mode of arrival: EMS History of Present Illness HPI narrative: Patient is a 86 year male who has a known history of lumbar radiculopathy. Was seen here in the emergency department approximately 2 weeks ago for similar symptoms that brought him in today. EMS was called because the patient states he was sitting on the edge of his bed. He would an increase in pain. He was weak. He could not stand. Did not fall. He did not hit his head. He is not on blood thinners. He received 150 mcg of fentanyl by EMS prior to arrival. He states that the pain is improving. He is not on blood thinners. Prior ED note states he is a DNR. He does have a history of COPD and sometimes uses oxygen at night. He denied chest pain shortness of breath Related Data Home Medications Medication Instructions Recorded Confirmed aspirin 81 mg chewable tablet 81 mg PO DAILY 12/17/17 05/05/22 atorvastatin 20 mg tablet 20 mg PO BEDTIME 02/11/22 05/05/22 fluticasone 250 mcg-salmeterol 50 1 inh inhalation BID 02/11/22 05/05/22 mcg/dose blistr powdr for inhalation acetaminophen 325 mg tablet 650 mg PO BID 05/05/22 05/05/22 diphenhydramine HCl 25 mg capsule 50 mg PO BEDTIME 05/05/22 05/05/22 (Benadryl) metoprolol tartrate 50 mg tablet 25 mg PO BID 05/05/22 05/05/22 pantoprazole 40 mg tablet,delayed 40 mg PO DAILY 05/05/22 05/05/22 release Previous Rx's Medication Instructions Recorded albuterol sulfate 90 mcg/actuation 2 puff inhalation Q4H PRN 06/20/21 aerosol inhaler (Ventolin HFA) Shortness Of Breath #8.5 grams lidocaine 5 % topical patch 1 patch topical DAILY #15 ea 01/27/22 (Lidoderm) cyclobenzaprine 10 mg tablet 10 mg PO TID PRN muscle spasm #30 04/28/22 tabs gabapentin 300 mg capsule 300 mg PO BEDTIME #30 caps 04/28/22 hydrocodone 5 mg-acetaminophen 325 1 tab PO Q6H PRN pain #30 tabs 04/28/22 mg tablet Allergies Allergy/AdvReac Type Severity Reaction Status Date / Time No Known Drug Allergies Allergy Verified 01/27/22 09:34 Review of Systems Cardiovascular Cardiovascular: Reports system reviewed and no additional complaints, except as documented Respiratory Respiratory: Reports system reviewed and no additional complaints, except as documented Musculoskeletal Musculoskeletal: Reports system reviewed and no additional complaints, except as documented Integumentary/Breasts Skin/Breast: Reports system reviewed and no additional complaints, except as documented Neurologic Neurologic: Reports system reviewed and no additional complaints, except as documented Hematologic/Lymphatic On Anticoagulants: No Patient History Medical History Acute respiratory failure with hypoxia Chronic back pain (~1959) COPD (chronic obstructive pulmonary disease) Gout (~2011) History of lung cancer History of urinary incontinence Lung cancer (~2007) Moderate aortic stenosis by prior echocardiogram Pancreatitis (~2005) Vision disorder Surgical History Anesthesia History of lung surgery (~03/2007) Family History Father Heart disease Grandmother Age: 82 Ovarian cancer, unspecified laterality Mother Diabetes mellitus Sister No problems noted. Social History marital status: household members: friend(s) Smoking Status: Current every day smoker alcohol intake: former substance use type: does not use Smoking Status: Current every day smoker alcohol intake frequency: 3 or more drinks per day Substance Use Type: does not use Exam Initial Vital Signs Initial Vital Signs: Vital Signs Pulse Rate 72 05/05/22 07:57 Blood Pressure 133/60 05/05/22 07:57 Pulse Oximetry 98 05/05/22 07:57 Const General: cooperative HENMT Head: normal to inspection and normocephalic Resp Effort & Inspection: normal respiratory effort Cardio Rate: regular rate GI Inspection: normal to inspection Palpation: soft and No tender Skin Other: Multiple lesions in various stages of healing with bruising and small skin tears Neuro General: patient alert, patient awake and moves all extremities Extrem Other: He is able to flex and extend his hips. Discomfort is posterior right hip. Upper extremities unremarkable Course Orders Ordered: ED Orders 05/05/22 08:04 Consult to [facility] [place] - [employer] Stat 05/05/22 08:11 Complete Blood Count AUTO DIFF Stat Comprehensive Metabolic Panel Stat Lipase Stat 05/05/22 08:30 Consult to Physical Therapy Evaluate & Treat 05/05/22 10:49 XR chest 1V Stat XR hip w pel if done RT 2V Stat 05/05/22 11:15 COVID19 -Nasal RAPID/Pre-Proc Stat 05/05/22 11:24 Arterial Blood Gas Stat 05/05/22 11:29 Ferritin Stat Folate Stat Iron Profile (w/ % Saturation) Stat Magnesium Stat Vitamin B12 Stat 05/05/22 12:14 Consult to Cardio/Pulmonary Rehabilitation Routine Consult to Dietitian, Adult Routine Education, smoking cessation ONGOING RT Consult Eval and Treat Now 05/06/22 05:00 Complete Blood Count AUTO DIFF Routine Comprehensive Metabolic Panel Routine NT-proBNP (BNP-Adult 18+) Routine Acetaminophen (Acetaminophen 325 Mg Tablet) 650 mg PO Q6H PRN PRN Reason: Fever/Mild Pain (1-3) Hydrocodone Bitart/Acetaminophen (Hydrocodone/Acet 5/325 Tablet) 1 tab PO Q6H PRN PRN Reason: pain Albuterol (Albuterol 2.5 Mg/3 Ml Neb (Adult)) 2.5 mg INH Q4H PRN PRN Reason: Shortness Of Breath Albuterol (Albuterol 2.5 Mg/3 Ml Neb (Adult)) 2.5 mg INH Q4HRWA [facility] Aspirin (Aspirin 81 Mg Chew Tab) 81 mg PO DAILY [facility] Atorvastatin Calcium (Atorvastatin 20 Mg Tablet) 20 mg PO BEDTIME [facility]ARTIN Budesonide (Budesonide 0.5 Mg/2 Ml Neb) 0.5 mg INH RTBID [facility] Enoxaparin Sodium (Enoxaparin 40 Mg/0.4 Ml Syringe) 40 mg SUBCUT DAILY [facility] Folic Acid (Folic Acid 1 Mg Tablet) 1 mg PO DAILY [facility] Doxycycline Hyclate 100 mg/ (Sodium Chloride) 100 mls @ 100 mls/hr IV Q12H [facility] Lorazepam (Lorazepam 0.5 Mg Tablet) 0.5 mg PO BID [facility] Multivitamins (Multivitamin 1 Tablet) 1 tab PO DAILY [facility] Naloxone HCl (Naloxone 0.4 Mg/Ml Vial) 0.2 mg IV Q2MIN PRN PRN Reason: Opiate Reversal Thiamine HCl (Thiamine 100 Mg Tablet) 100 mg PO DAILY MARTIN Stop: 05/09/22 09:01 Discontinued Medications Hydrocodone Bitart/Acetaminophen (Hydrocodone/Acet 5/325 Tablet) 1 tab PO NOW ONE Stop: 05/05/22 08:07 Last Admin: 05/05/22 09:24 Dose: 1 tab Documented By: CANDELARIO Methylprednisolone (Methylprednisolone 125 Mg/2 Ml Vial) 60 mg IV NOW ONE Stop: 05/05/22 12:15 Vital Signs Vital signs: Vital Signs - 8 hr 05/05/22 07:59 05/05/22 07:57 05/05/22 07:57 Temperature 97.5 F L Pulse Rate 72 72 Respiratory Rate 18 Blood Pressure 133/60 133/60 Pulse Oximetry 98 98 Oxygen Delivery Method Nasal Cannula Oxygen Flow Rate 4 05/05/22 08:00 05/05/22 08:30 05/05/22 09:00 Temperature Pulse Rate 72 68 69 Respiratory Rate Blood Pressure Pulse Oximetry 98 98 96 Oxygen Delivery Method Oxygen Flow Rate 05/05/22 09:30 05/05/22 09:54 05/05/22 09:54 Temperature Pulse Rate 66 68 Respiratory Rate Blood Pressure 102/54 L Pulse Oximetry 97 96 Oxygen Delivery Method Oxygen Flow Rate 05/05/22 10:00 05/05/22 10:01 05/05/22 10:01 Temperature Pulse Rate 66 66 Respiratory Rate Blood Pressure 107/84 Pulse Oximetry 98 Oxygen Delivery Method Oxygen Flow Rate 05/05/22 10:30 05/05/22 10:50 05/05/22 10:50 Temperature Pulse Rate 78 75 Respiratory Rate Blood Pressure 108/56 L Pulse Oximetry 98 97 Oxygen Delivery Method Oxygen Flow Rate 05/05/22 11:00 05/05/22 11:01 05/05/22 11:01 Temperature Pulse Rate 73 71 Respiratory Rate Blood Pressure 101/66 Pulse Oximetry 100 94 Oxygen Delivery Method Oxygen Flow Rate 05/05/22 11:30 05/05/22 11:30 Temperature Pulse Rate 74 Respiratory Rate Blood Pressure 104/53 L Pulse Oximetry 99 Oxygen Delivery Method Oxygen Flow Rate Medical Decision Making Medical Records Medical records reviewed: Yes I reviewed the patient's medical records. Lab Data Lab results reviewed: Yes I reviewed the patient's lab results. 05/05/22 08:11 05/05/22 08:11 Labs: Lab Results 05/05/22 05/05/22 05/05/22 Range/Units 08:11 08:11 11:15 WBC 12.7 H (4.5-11.0) X10^3/uL RBC 2.38 L (4.5-5.9) X10^6/uL Hgb 7.3 L (13.5-17.5) g/dL Hct 22.4 L (41-53) % MCV 94.1 (80-100) fL MCH 30.6 (26-34) PG MCHC 32.5 (30-36) % RDW 15.0 H (11.6-14.8) % Plt Count 238 (150-400) X10^3/uL Neut % (Auto) 78.6 H (50-75) % Lymph % (Auto) 8.3 L (25-40) % [place] % (Auto) 10.4 (3-14) % Eos % (Auto) 1.7 L (2-4) % Baso % (Auto) 1.0 (0-2) % Neut # (Auto) 23152 H (3288-7576) /uL Lymph # (Auto) 1100 (0093-9446) /uL [place] # (Auto) 1300 H (0-900) /uL Eos # (Auto) 200 (0-450) /uL Baso # (Auto) 100 (0-100) /uL Sodium 137 (137-145) mmol/L Potassium 5.6 H (3.4-5.1) mmol/L Chloride 107 (98-107) mmol/L Carbon Dioxide 22 (22-32) mmol/L BUN 39 H (9-20) mg/dL Creatinine 1.77 H (0.66-1.25) mg/dL Estimated GFR 37 L (>60) mL/min BUN/Creatinine Ratio 22.0 (6-22) Glucose 88 (80-110) mg/dL Calcium 9.4 (8.4-10.2) mg/dL Total Bilirubin 0.4 (0.2-1.3) mg/dL AST 43 (17-59) IU/L ALT 17 (<50) IU/L Alkaline Phosphatase 70 (38-126) U/L Total Protein 6.5 (6.3-8.2) g/dL Albumin 3.4 L (3.5-5.0) g/dL Globulin 3.1 (1.7-4.1) g/dL Albumin/Globulin Ratio 1.1 (1.0-2.8) Lipase 28 (23-300) U/L SARS-CoV-2 (PCR) Negative (Negative) Urine Dip Bedside Urine Glucose Negative Bedside Urine Bilirubin - Negative Bedside Urine Ketone - Negative Urine Specific [place] 1.025 Bedside Urine Occult Blood - Negative Bedside Urine pH 5.0 Bedside Urine Protein - Negative Bedside Urine Urobilinogen - Negative Bedside Urine Nitrite - Negative Bedside Urine Leukocytes - Negative Esterase Point of care testing: Urine Dip Bedside Urine Glucose Negative Bedside Urine Bilirubin - Negative Bedside Urine Ketone - Negative Urine Specific [place] 1.025 Bedside Urine Occult Blood - Negative Bedside Urine pH 5.0 Bedside Urine Protein - Negative Bedside Urine Urobilinogen - Negative Bedside Urine Nitrite - Negative Bedside Urine Leukocytes - Negative Esterase Imaging Data Chest x-ray: Radiologist's Impression: PROCEDURE:? XR CHEST 1V ? INDICATIONS:? eval forPNA ? TECHNIQUE:? One view of the chest was acquired.? ? COMPARISON:? [facility], CT, CT ABDOMEN PELVIS W CON, 04/21/2022, 15:06.? [facility], CR, XR CHEST 1V, 03/16/2022, 10:29. ? FINDINGS:? ? Surgical changes and devices:? Mediastinal clips. ? Lungs and pleura:? Increased density in the left mid and lower lung field compared to the previous study.? Suspect pneumonia.? Probable left effusion. ? Mediastinum:? Mediastinal contours appear normal.? Heart size is normal.? ? Bones and chest wall:? No suspicious bony lesions.? Overlying soft tissues appear unremarkable.? ? IMPRESSION:? Probable left pneumonia and left pleural effusion. Extremity x-ray #1: Radiologist's Impression: PROCEDURE:? XR HIP W PEL IF DONE RT 2V ? INDICATIONS:? hip pain after fall ? TECHNIQUE:? AP pelvis with lateral view(s) of the right hip(s).? ? COMPARISON:? [facility], CR, XR HIP W PEL IF DONE RT 2V, 04/21/2022, 12:53. ? FINDINGS:? ? Bones:? No fractures or dislocations.? Pelvic ring appears intact.? No suspicious bony lesions.? Mild right hip degenerative change.? ? Soft tissues:? The visualized bowel gas pattern is normal.? No suspicious soft tissue calcifications.? ? ? IMPRESSION:? Mild right hip degenerative change. No evidence acute bony abnormality of the pelvis and right hip. ? If clinical suspicion and/or symptoms persist, further assessment with repeat plain films, or advanced imaging (e.g., CT, MRI, or bone scan) may be helpful for further assessment. [facility] Narrative Medical decision making narrative: Patient is profoundly weak. He is unable to stand at bedside. He does have a history of COPD. He has been coughing and off oxygen his oxygen saturations do drop to the high 80s/low 90s. This improves with oxygen. He denies any specific shortness of breath. Denies any urinary symptoms. Chest x-ray is concerning for pneumonia. Potentially also having COPD exacerbation. Antibiotics are per admitting provider. Does have a leukocytosis. Given his presentation today we will admit for further evaluation and treatment. Discussed the case with Dr. Jennings who is the patient's primary doctor who will admit for further evaluation and treatment. Discharge Plan Departure Patient Disposition: Admitted as Observation Clinical Impression: Pneumonia, COPD exacerbation, Weakness, Leukocytosis Admit Date/Time: 05/05/22 11:31 Admit Provider: Jeffrey Jennings
[2022-05-05 08:23] LABS: Add Manual Diff / Slide Review NO; Basophils Absolute Auto 100 /uL (0-100); Eosinophils Absolute Auto 200 /uL (0-450); Eosinophils Percent Auto 1.7 % (2-4); Hematocrit 22.4 % (41-53); Hemoglobin 7.3 g/dL (13.5-17.5); Lymphocytes Absolute Auto 1100 /uL (1100-4500); Lymphocytes Percent Auto 8.3 % (25-40); Mean Corpuscular HGB Conc 32.5 % (30-36); Mean Corpuscular Hemoglobin 30.6 PG (26-34); Mean Corpuscular Volume 94.1 fL (80-100); Monocytes Absolute Auto 1300 /uL (0-900); Monocytes Percent Auto 10.4 % (3-14); Neutrophils Absolute Auto 10000 /uL (1500-7000); Neutrophils Percent Auto 78.6 % (50-75); Platelet Count 238 X10^3/uL (150-400); Red Blood Cell Count 2.38 X10^6/uL (4.5-5.9); White Blood Cell Count 12.7 X10^3/uL (4.5-11.0)
[2022-05-05 08:36] LABS: Alanine Aminotransferase 17 IU/L (<50); Albumin 3.4 g/dL (3.5-5.0); Albumin Globulin Ratio 1.1 (1.0-2.8); Alkaline Phosphatase 70 U/L (38-126); Aspartate Aminotransferase 43 IU/L (17-59); Bilirubin Total 0.4 mg/dL (0.2-1.3); Blood Urea Nitrogen 39 mg/dL (9-20); Calcium 9.4 mg/dL (8.4-10.2); Carbon Dioxide 22 mmol/L (22-32); Chloride 107 mmol/L (98-107); Estimated Glomerular Filt Rate 37 mL/min (>60); Globulin 3.1 g/dL (1.7-4.1); Glucose 88 mg/dL (80-110); HEMOLYSIS < 15 (0-50); Lipase 28 U/L (23-300); Potassium 5.6 mmol/L (3.4-5.1); Sodium 137 mmol/L (137-145); Total Protein 6.5 g/dL (6.3-8.2)
[2022-05-05] MEDS: HYDROCODONE/ACET 5/325 TABLET 1 TAB PO ×2 (09:24→14:29)
--- NOTE | 2022-05-05 10:36 | PC.NURSE ---
Attempted to ambulate pt. Pt unable to stand using walker. Feet slip out from underneath him and in too much pain to stand. Dr Mitchell made aware
--- NOTE | 2022-05-05 10:49 | DI.RAD.S_ITS ---
PROCEDURE: XR CHEST 1V INDICATIONS: eval forPNA TECHNIQUE: One view of the chest was acquired. COMPARISON: [facility], CT, CT ABDOMEN PELVIS W CON, 04/21/2022, 15:06. [facility], CR, XR CHEST 1V, 03/16/2022, 10:29. FINDINGS: Surgical changes and devices: Mediastinal clips. Lungs and pleura: Increased density in the left mid and lower lung field compared to the previous study. Suspect pneumonia. Probable left effusion. Mediastinum: Mediastinal contours appear normal. Heart size is normal. Bones and chest wall: No suspicious bony lesions. Overlying soft tissues appear unremarkable. IMPRESSION: Probable left pneumonia and left pleural effusion. Dictated by: Max Saravia M.D. on 05/05/2022 at 11:41 Approved by: Max Saravia M.D. on 05/05/2022 at 11:44
--- NOTE | 2022-05-05 10:49 | DI.RAD.S_ITS ---
PROCEDURE: XR HIP W PEL IF DONE RT 2V INDICATIONS: hip pain after fall TECHNIQUE: AP pelvis with lateral view(s) of the right hip(s). COMPARISON: [facility], , XR HIP W PEL IF DONE RT 2V, 04/21/2022, 12:53. FINDINGS: Bones: No fractures or dislocations. Pelvic ring appears intact. No suspicious bony lesions. Mild right hip degenerative change. Soft tissues: The visualized bowel gas pattern is normal. No suspicious soft tissue calcifications. IMPRESSION: Mild right hip degenerative change. No evidence acute bony abnormality of the pelvis and right hip. If clinical suspicion and/or symptoms persist, further assessment with repeat plain films, or advanced imaging (e.g., CT, MRI, or bone scan) may be helpful for further assessment. Dictated by: Max Saravia M.D. on 05/05/2022 at 11:41 Approved by: Max Saravia M.D. on 05/05/2022 at 11:41
--- NOTE | 2022-05-05 11:29 | P.HP_ITS ---
History of Present Illness History of Present Illness Date Patient Seen: 05/05/22 Time Patient Seen: 11:29 Chief complaint: GLF, Right leg pain Narrative: 86-year-old with severe COPD oxygen dependent history of lung cancer coronary artery disease aortic stenosis prostate cancer severe lumbar degenerative disc disease who has been in the hospital number of times this year. He was brought in by ambulance today because of inability to walk and severe pain in his right hip. Patient states that he is having some ongoing hip pain in fact he has been seen in the emergency department a couple of weeks ago. Pain has been moderate to severe in intensity and this morning he is having weakness and difficulty with ambulating because of the pain. He had x-rays and a CT scan 2 weeks ago which showed arthritis but no acute bony abnormalities. Patient had a x-ray again today which shows moderate to severe arthritis without any bony abnormalities. Patient has significant pain over his right hip joint. And it is causing him difficulty with moving and walking. Has home health at home and he does have a partner at home. But he is obviously not capable of transferring himself. Patient has end-stage COPD and is oxygen dependent. He is on oxygen right now a t 2-3 L. His oxygen saturation is 97% he has chronic respiratory failure. On lung exam he does have wheezes. And coughing. In the emergency department we reviewed his labs and he does have an elevated white blood cell count. He has history of alcoholism and alcohol use with mild withdrawal previously hospitalized and present on other hospitalizations. He says he has been doing much better in the alcohol department. He has no complaints of headache or dizziness. He is not complaining of active chest pain he is short of breath. Having normal bowel movements and urination. He does not complain of rectal bleeding or blood in his urine. Patient History Medical History Acute respiratory failure with hypoxia Chronic back pain (~1959) COPD (chronic obstructive pulmonary disease) Gout (~2011) History of lung cancer History of urinary incontinence Lung cancer (~2007) Moderate aortic stenosis by prior echocardiogram Pancreatitis (~2005) Vision disorder Surgical History Anesthesia History of lung surgery (~03/2007) Family & Social History Family History Father Heart disease Grandmother Age: 82 Ovarian cancer, unspecified laterality Mother Diabetes mellitus Sister No problems noted. Social History: household members friend(s) Safety & Behavioral: Feels Safe in Current Yes Environment Tobacco & Substance use: Tobacco type cigarettes Smoking Status Current every day smoker alcohol intake former alcohol intake frequency 3 or more drinks per day Substance Use Type does not use Meds Home Medications and Allergies Home Medications Medication Instructions Recorded Confirmed Type aspirin 81 mg chewable tablet 81 mg PO DAILY 12/17/17 05/05/22 History albuterol sulfate 90 mcg/actuation 2 puff inhalation Q4H PRN 06/20/21 05/05/22 Rx aerosol inhaler (Ventolin HFA) Shortness Of Breath #8.5 grams lidocaine 5 % topical patch 1 patch topical DAILY #15 ea 01/27/22 05/05/22 Rx (Lidoderm) atorvastatin 20 mg tablet 20 mg PO BEDTIME 02/11/22 05/05/22 History fluticasone 250 mcg-salmeterol 50 1 inh inhalation BID 02/11/22 05/05/22 History mcg/dose blistr powdr for inhalation cyclobenzaprine 10 mg tablet 10 mg PO TID PRN muscle spasm #30 04/28/22 05/05/22 Rx tabs gabapentin 300 mg capsule 300 mg PO BEDTIME #30 caps 04/28/22 05/05/22 Rx hydrocodone 5 mg-acetaminophen 325 1 tab PO Q6H PRN pain #30 tabs 04/28/22 05/05/22 Rx mg tablet acetaminophen 325 mg tablet 650 mg PO BID 05/05/22 05/05/22 History diphenhydramine HCl 25 mg capsule 50 mg PO BEDTIME 05/05/22 05/05/22 History (Benadryl) metoprolol tartrate 50 mg tablet 25 mg PO BID 05/05/22 05/05/22 History pantoprazole 40 mg tablet,delayed 40 mg PO DAILY 05/05/22 05/05/22 History release Allergies Allergy/AdvReac Type Severity Reaction Status Date / Time No Known Drug Allergies Allergy Verified 01/27/22 09:34 Exam Vital Signs (past 8 hours): - 05/05/22 07:59 05/05/22 07:57 05/05/22 07:57 Temperature 97.5 F L Pulse Rate 72 72 Respiratory Rate 18 Blood Pressure 133/60 133/60 Pulse Oximetry 98 98 Oxygen Delivery Method Nasal Cannula Oxygen Flow Rate 4 05/05/22 08:00 05/05/22 08:30 05/05/22 09:00 Temperature Pulse Rate 72 68 69 Respiratory Rate Blood Pressure Pulse Oximetry 98 98 96 Oxygen Delivery Method Oxygen Flow Rate 05/05/22 09:30 Temperature Pulse Rate 66 Respiratory Rate Blood Pressure Pulse Oximetry 97 Oxygen Delivery Method Oxygen Flow Rate Oxygen Delivery Method Nasal Cannula Oxygen Flow Rate 4 Narrative Exam Narrative: Gen.: Alert uncomfortable in bed complaining of right hip pain. HEENT: Pupils equal round and reactive or mucosa is moist neck is supple Cardio: S1-S2 systolic murmur present Respiratory: Lungs show decreased breath sounds throughout with some increased wheezes in both lung morrow. Abdomen: Soft obese umbilical hernia Extremities: 2+ lower extremity edema Objective Labs 05/05/22 08:11 05/05/22 08:11 Labs: Laboratory Results - last 24 hr 05/05/22 05/05/22 08:11 08:11 WBC 12.7 H RBC 2.38 L Hgb 7.3 L Hct 22.4 L MCV 94.1 MCH 30.6 MCHC 32.5 RDW 15.0 H Plt Count 238 Neut % (Auto) 78.6 H Lymph % (Auto) 8.3 L [place] % (Auto) 10.4 Eos % (Auto) 1.7 L Baso % (Auto) 1.0 Neut # (Auto) 08941 H Lymph # (Auto) 1100 [place] # (Auto) 1300 H Eos # (Auto) 200 Baso # (Auto) 100 Sodium 137 Potassium 5.6 H Chloride 107 Carbon Dioxide 22 BUN 39 H Creatinine 1.77 H Estimated GFR 37 L BUN/Creatinine Ratio 22.0 Glucose 88 Calcium 9.4 Total Bilirubin 0.4 AST 43 ALT 17 Alkaline Phosphatase 70 Total Protein 6.5 Albumin 3.4 L Globulin 3.1 Albumin/Globulin Ratio 1.1 Lipase 28 Assessment & Plan Assessment and plan (1) COPD exacerbation: Status: Acute (2) Spinal stenosis: Status: Acute Plan Degenerative disc disease of lumbar spine with spinal stenosis and significant right hip pain. Patient with known degenerative disc disease of his spine and severe hip pain. Patient has recently had multiple falls and inability to ambulate at home. Hip x-ray in the emergency department sores no acute fracture will obtain a CT scan of the hip to rule out underlying fracture not visualized on the x-ray. Patient will continue with provided pain relief. There is no sign of fracture will proceed with a corticosteroid injection into the hip bursa tomorrow. COPD exacerbation with chronic respiratory failure. Patient has respiratory failure chronically and is oxygen dependent. Patient has increasing wheezes on lung exam compared to usual and a slightly elevated white blood cell count. Chest x-ray shows no signs of underlying clinical pneumonia. Due to his increa sed wheezing. Will go ahead and continue with his oxygen order an ABG place him on IV steroids and IV doxycycline for underlying exacerbation. Monitor closely his oxygen status and white blood cell count. Continue with nebulizer treatments and inhalers as needed per respiratory therapy protocol Anemia acute. Patient with acute anemia of unknown etiology patient recently previously required a blood transfusion. Will check vitamin B12 iron folic acid. Will have stools guaiaced. The make sure that there is no loss from the GI tract. Patient's blood counts are quite low at 7.2 will recheck his hemoglobin and hematocrit type and screen him. If they remain low he may need a blood transfusion. Due to his underlying significant aortic stenosis and COPD with oxygen dependent blood transfusion may become necessary. Aortic stenosis moderate to severe. Previously reviewed with Cardiology. He is not in a position that needs current replacement with this. Will monitor closely his fluid and electrolyte status and try to keep him as euvolemic as possible. Alcohol misuse disorder. Patient previously has consumed a considerable amount of alcohol previously when hospitalized he went through mild withdrawal. Will go ahead and place him on the CIWA protocol provide oral lorazepam and IV lorazepam as needed for significant agitation although previously this has not been a big issue. Lung cancer. Patient with remote history of lung cancer with lobectomy. Patient has a new spiculated lung lesions being evaluated as an outpatient. And has seen Oncology recommend repeat CT scan here in 3 months to make sure there is no interval progression. Hyperlipidemia continue with atorvastatin Gastroesophageal reflux continue with pantoprazole 40 mg daily Disposition plan patient will be admitted as an inpatient due to his multiple comorbid conditions and acute conditions above will anticipate being in hospital greater than 2 midnights. Time Spent With Patient Critical Care time: I spent a total of [] minutes of critical care time on this patient's care today; this time is exclusive of procedural time.
[2022-05-05 11:54] LABS: COVID19 -Nasal RAPID Negative (Negative)
--- NOTE | 2022-05-05 11:56 | DI.CT.S_ITS ---
PROCEDURE: CT PEL WO CON INDICATIONS: rt hip pain TECHNIQUE: Noncontrast 3 mm axial sections acquired through the bony pelvis, with coronal and sagittal reformatting. COMPARISON: [facility], CR, XR HIP W PEL IF DONE RT 2V, 05/05/2022, 10:57. FINDINGS: Image quality: Excellent. Bones: Pelvic ring is intact. No acute pelvic or hip fracture is seen. Moderate osteoarthritic changes are noted in bilateral sacroiliac joints, bilateral hip joints and symphysis pubis with significant joint space narrowing and subchondral sclerosis. No evidence of avascular necrosis of femoral heads. No bony erosion or ankylosis is seen in sacroiliac joints. No suspicious bony lesions. Degenerative disc disease in visualized lower lumbar spine is seen. Soft tissues: There is no abnormal soft tissue calcifications or intra-articular loose bodies. No pelvic free fluid or free air. Moderate atherosclerotic disease in abdominal aorta and bilateral iliac arteries are seen. No abnormal bowel wall thickening. Bladder wall thickness is normal. No pelvic lymphadenopathy. IMPRESSION: 1. No acute pelvic or hip fractures. No hip dislocation. 2. Moderate osteoarthritic changes throughout bony pelvis. No evidence of avascular necrosis of femoral head. No ankylosis or bony erosion is seen in bilateral sacroiliac joints. 3. No gross pelvic or hip soft tissue abnormality is seen. No pelvic free fluid or free air. Dictated by: Alexandru Gutierrez M.D. on 05/05/2022 at 14:36 Approved by: Alexandru Gutierrez M.D. on 05/05/2022 at 14:39
[2022-05-05] MEDS: ALBUTEROL 2.5 MG/3 ML NEB (ADULT) INH ×3 (13:35→20:11)
[2022-05-05 13:53] LABS: HEMOLYSIS < 15 (0-50); Iron 30 ug/dL (49-181)
[2022-05-05 13:55] LABS: Magnesium 1.7 mg/dL (1.6-2.3)
[2022-05-05 14:04] LABS: Percent Iron Saturation 11 % (20-50); Total Iron Binding Capacity 276 ug/dL (261-462); Transferrin 189 mg/dL (206-381)
--- NOTE | 2022-05-05 14:08 | PC.NURSE ---
Addendum entered by Lona Eli R.N. 05/05/22 18:40: Patient states that his meatloaf when down the wrong way, He coughed for a few minutes and was able to clear his air way. Suction given to patient and he was taught how to use it. He is looking at his phone now. Addendum entered by Lona Eli R.N. 05/05/22 18:09: Patients CIWA a 4. Patient states that he was seeing some bugs on the wall, and he is shaky. Patient states that he drinks a 1/2 gallon of Vodka every four days. He is slightly confused as well. Eating dinnner now. Condom cath put on patient as he was voiding alot from lasix given to him. He is resting comfortably and eating his dinner. Addendum entered by Lona Eli R.N. 05/05/22 15:17: Patient complaining of 10/10 pain to r.hip. Vicodin given to patient, he is now working with physical therapy and is chatting away. Doxycycline is infusing and patient is tolerating this well. Original Note: Assess- Patient is alert and oriented x4. He is having r.hip pain and was admitted for copd exacerbation. Patient is on 2L of o2 and sats in the mid 90s. He states that his last drink was on thursday and that he smokes about a pack a day. He is on CIWA protocal and his score is a O. Patient just back from ct scan, was moaning and in some pain but has calmed down and is sleeping.
[2022-05-05] MEDS: methylPREDNISolone 125 MG/2 ML VIAL 60 MG IV (14:30)
[2022-05-05] MEDS: DOXYCYCLINE 100 MG in SODIUM CHLORIDE 0.9% 100 ML IV (14:31)
[2022-05-05 14:32] LABS: Ferritin 262 ng/mL (18-464)
[2022-05-05] MEDS: ENOXAPARIN 40 MG/0.4 ML SYRINGE SUBCUT (14:32)
[2022-05-05] MEDS: FUROSEMIDE 40 MG/4 ML VIAL IV (14:38)
[2022-05-05 15:04] LABS: Folate 8.2 ng/mL (2.76-20.0); Vitamin B12 388 pg/mL (239-931)
--- NOTE | 2022-05-05 15:40 | PT.IIE ---
Current Diagnoses Chronic obstructive pulmonary disease with (acute) exacerbation (05/05/22) Spinal stenosis, site unspecified (05/05/22) Surgical History (Last Reviewed 05/05/22 @ 11:50 by Jeffrey Jennings MD) Anesthesia History of lung surgery (~03/2007) Medical History (Last Reviewed 05/05/22 @ 11:50 by Jeffrey Jennings MD) Acute respiratory failure with hypoxia Chronic back pain (~1959) COPD (chronic obstructive pulmonary disease) Gout (~2011) History of lung cancer History of urinary incontinence Lung cancer (~2007) Moderate aortic stenosis by prior echocardiogram Pancreatitis (~2005) Vision disorder Physical Therapy Inpatient Evaluation/Re-Eval M1 PT/OT-IP Prior Functional Status Start: 05/05/22 12:52 Freq: NEEDED Status: Active Protocol: Document 05/05/22 15:40 AW (Rec: 05/05/22 16:23 AW [id number]) Medical Review Prior Functional Status Medical History Reviewed Yes Communication Pt is able to answer questions and communicate his needs but with some confusion which appears to be related to pain intensity. Mobility and Gait Pt states he uses a 4WW 75% of the time and a SPC the rest of the time for household mobility. To leave the house, he was able to descend steps sideways using rail and then contact the myers of the car to creep along to the door. Activities of Daily Living and IADL's Pt's live-in caregiver provides assist with ADLs, cleaning, laundry, shopping. Prior Functional Level (Other details) Pt was admitted February 2022 with PNA, UTI. He went to SNF rehab. He readmitted in March 2022 with sepsis and noted hip pain, bilateral foot pain. He went home with which was active up until current admission. Social History Household Members friend(s) Living Arrangements House Number of Floors (Floors) One Floor Number of Stairs To Enter/Railing? 4 ANGEL at the back of the house with R rail ascending. Pt tends to manage stairs by facing the rail and holding on with both hands. 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 His friend, Leeanna, lives with him and provides assist. M2 PT-IP Current Condition Start: 05/05/22 12:52 Freq: NEEDED Status: Active Protocol: Document 05/05/22 15:40 AW (Rec: 05/05/22 16:23 AW [id number]) Physical Therapy Current Condition Current Condition Evaluation Date 05/05/22 Treatment Diagnosis falls, function-limiting right hip pain Onset Date 05/04/22 M3 PT-IP Subjective Start: 05/05/22 12:52 Freq: NEEDED Status: Active Protocol: Document 05/05/22 15:40 AW (Rec: 05/05/22 16:23 AW [id number]) Subjective Physical Therapy Visit Type Type Initial Evaluation Visit Start Time 15:03 Visit Stop Time 15:35 Total Visit Minutes 32 Notes Right hip x-ray and pelvis CT are negative for fracture. Physical Therapy Visit Comments Patient Comments Pt is willing to participate with PT. I feel a lot better right now. Patient Goals Pt wants to be able to bear weight and walk as normal Therapy Pain Assessment Pain When Pain Assessed At Rest Pain Present Pain Present Denied Pain FLACC Pain Scale Face Occasional grimace/frown Legs Uneasy, restless, tense Activity Squirming,shifting Cry Moans/whimpers/complains Consolability Reassurable with touch FLACC Total 5 Location Right Leg Intensity 0 Scale Used 0/10 at rest; pt declines to quantify during mobility M4 PT-IP Mobility and Gait Start: 05/05/22 12:52 Freq: NEEDED Status: Active Protocol: Document 05/05/22 15:40 AW (Rec: 05/05/22 16:23 AW [id number]) PT-Bed Mobility Assessment Supine to Sit Supine to Sit Moderate Assistance,1 Person Assistance,Bedrails Sit to Supine Sit to Supine Minimal Assistance,Total Assistance Scooting Scooting to Edge of Bed Contact Guard Assistance Scooting Up and Down in Bed Moderate Assistance PT-Transfer Assessment Sit to and From Stand Sit to and from Stand Minimal Assistance,1 Person Assistance,Use of Upper Extremities Equipment Transfer Assistive Device Gait Belt,Front Wheeled Walker Orthotic/Prosthetic Devices or Brace: No Transfers Transfer Destination Bed Transfer Technique sit<>stand Transfer Ability Level of Assist Moderate Assistance Comments Mobility Comments Pt was lying in bed as PT arrived. He was leaned toward the left. SpO2 on 1 L/min was 95%. Pt agreed to mobility assessment and needed mod A and use of bed rails to sit up EOB. He sat with leftward lean (away from painful hip) and was hesitant to redistribute weight. He stood min A and used FWW for support . In standing, weight was shifted toward the left and pt complained of increased pain but declined to quantify. Pt was able to take two side steps toward HOB with FWW modA before needing to sit. Min A required to elevate pt's legs to the bed. Pt was able to bridge his hips enough to scoot toward center of bed and participated in repositioning toward HOB by pushing with both feet and pulling with right arm. RN BURN arrive and pt was left in her care with call light at hand. Gait Assessment Comments Gait Comments Steps taken at bedside only. See mobility comments. Stair Climbing Assessment Comments Stair Climbing Comments Not able to progress to gait or stairs today. PT-Balance Assessment Sitting Balance and Reactions Static Sitting Balance Ability Fair Dynamic Sitting Balance Ability Fair Standing Balance and Reactions Static Standing Balance Ability Poor Dynamic Standing Balance Ability Poor Device Used FWW Comments Other Balance Tests/Deviations/Treatment Pt leans away from painful : right side in sitting and standing. M5 PT-IP Objective Assessments Start: 05/05/22 12:52 Freq: NEEDED Status: Active Protocol: Document 05/05/22 15:40 AW (Rec: 05/05/22 16:23 AW [id number]) Orientation Orientation/Cognition Level of Alertness Confusional State Orientation Name,Year,Place,Situation Language Function Ability No Deficits Noted Strength Upper Extremity Strength Assessment Bilaterally Impaired Shoulder 4/5 Elbow 4/5 Lower Extremity Strength Hip R 3/5; L 4-/5 Knee 4-/5 Ankle 4-/5 Comments Strength Comments History of ongoing hip pain (R more affected than L) Sensation Assessment Sensation Gross Sensation Right LE Impaired,Left LE Impaired Light Touch Impaired M6 PT-IP Treatment Start: 05/05/22 12:52 Freq: NEEDED Status: Active Protocol: Document 05/05/22 15:40 AW (Rec: 05/05/22 16:23 AW [id number]) Physical Therapy Treatment Education Education Provided Safety M7 PT-IP Assessment and Plan Start: 05/05/22 12:52 Freq: NEEDED Status: Active Protocol: Document 05/05/22 15:40 AW (Rec: 05/05/22 16:23 AW [id number]) PT Summary Assessment and Plan Potential Rehabilitation Potential Good Status of Condition at Evaluation Evolving Summary Impairments Pain,Strength,Balance, Sensation,Cognition,Bed Mobility,Transfers,Gait, Activity Tolerance Assessment Summary Todd is an 86 yo man admitted with recent increase in falls frequency and function- limiting right hip pain. Right hip x-ray and pelvis CT are negative for acute fracture or dislocation. Pt was admitted in February and discharged to SNF. He was admitted in March and went home with home health which is still active. Pt uses a 4WW or SPC for all mobility. His friend, Leeanna, lives with him and provides assist for ADL and IADL needs. He enters his home by going up stairs sideways with both hands on a rail and CGA. Currently, pt is needing min to mod assist for bed mobility and sit to stand. He leans toward the left in sitting and in standing. He is unable to effectively clear his feet to walk with FWW away from the bed. PT recommends discharge to SNF due to level of assist needed for limited mobility at this time. Will continue to assess for best discharge plan. Recommend mechanical lift transfers with nursing. Goals Bed Mobility Goal Standby Assistance Transfer Goal Contact Guard Assistance,Front Wheeled Walker Gait Goal Contact Guard Assistance,Front Wheel Walker Gait Distance 75 Other Goals - up/down 4 steps with single rail CGA - progress gait and transfers to SBA with 4WW Days to Meet Goals 10 Frequency of Treatment Frequency Of Treatment Once a Day Treatment Plan Physical Therapy Treatment Plan Bed Mobility Training,Transfer Training,Gait Training, Therapeutic Exercise,Balance Retraining,Discharge Planning, Hot or Cold Pack,Neuromuscular Re-ed Precautions Other Precautions falls, supplemental O2 Recommendations To Nursing Amount of Assist Needed Mechanical Lift Discharge Recommendations PT Discharge Recommendations SNF Rehab Transportation Needs at Discharge Wheelchair/Cabulance
--- NOTE | 2022-05-05 16:28 | DIET.CONS2 ---
Dietary Inpatient Consultation Note Admission Date: 05/05/2022 11:31 86 y/o M admitted for GLF with R leg pain, RD consulted for nutrition assessment. Met with pt at bedside to discuss current diet and pts 4.9% (severe) wt loss in 2 weeks.? Recent wt history: 04/21/22: 120.2 kg? 05/05/22: 115.6 kg Pt reports not having much of an appetite and a significant?decrease in ETOH intake (~5 drinks in last 60 days). Per notes, pt used to drink >3 drinks/d and pt reports 5 drinks per day was a conservative estimate. Additionally, pt notes not having teeth which makes eating difficult.? Pt states no reason he quit in particular except he just didn't feel like drinking anymore. Pt still goes to [employer] but now has a soda instead of etoh. Pt reports having a live in helper with meal prep/cooking.? Current diet includes: meat, Progresso vegetable soup, milk shakes, pizza.? Diagnosis: Moderate protein calorie malnutrition r/t multifactoral: lack of appetite, significant decrease in ETOH intake, poor dentition, pain aeb 4.9% (severe) wt loss in 2 weeks, pt missing several teeth with difficulty chewing, pt with significant hip pain and recent frequent GLFs. -The patient is at much higher risk for medical and surgical complications because of malnutrition. This increases the difficulty and complexity of medical and surgical interventions and increases the chances of poor outcomes such as morbidity and mortality. Interventions: 1. To support nutrition status will send bariatric ONS once daily in addition to meal trays. 2. To support nutrition status upon d/c, discussed the importance/ways of increasing protein intake to maintain LBM.?Pt will consume protein foods at meals and snacks. Collaborated on ideas. 3. Pt would benefit from SNF for pain management and meal support until regaining baseline mobility. Diet: 05/05/22 Breakfast General (Regular) Diet Diet Modifications: Nutrition Percent Meal Consumed 75% 05/05/22 15:51 Electronically Signed by: Aby Jorge 05/05/22 16:28 Clinical Dietitian [address] [id number]
[2022-05-05] MEDS: BUDESONIDE 0.5 MG/2 ML NEB INH (20:11)
[2022-05-05] MEDS: ATORVASTATIN 20 MG TABLET PO (21:02)
[2022-05-05] MEDS: METOPROLOL IR 50 MG TABLET 25 MG PO (21:02)
[2022-05-05] MEDS: GABAPENTIN 300 MG CAPSULE PO (21:02)
[2022-05-05] MEDS: LORazepam 0.5 MG TABLET PO (21:03)
[2022-05-05] MEDS: ACETAMINOPHEN 325 MG TABLET 650 MG PO (21:03)
[2022-05-06] VITALS (12 sets, daily range): BP systolic 100–143; BP diastolic 53–100; PULSE 73–85; RESP 17–20; TEMP 36.2–36.6; O2SAT 93–96
[2022-05-06] MEDS: DOXYCYCLINE 100 MG in SODIUM CHLORIDE 0.9% 100 ML IV ×2 (00:39→16:00)
[2022-05-06 06:05] LABS: Alanine Aminotransferase 18 IU/L (<50); Albumin 3.5 g/dL (3.5-5.0); Albumin Globulin Ratio 1.2 (1.0-2.8); Alkaline Phosphatase 66 U/L (38-126); Aspartate Aminotransferase 32 IU/L (17-59); BUN Creatinine Ratio 25.5 (6-22); Bilirubin Total 0.5 mg/dL (0.2-1.3); Blood Urea Nitrogen 40 mg/dL (9-20); Calcium 9.1 mg/dL (8.4-10.2); Carbon Dioxide 24 mmol/L (22-32); Chloride 104 mmol/L (98-107); Estimated Glomerular Filt Rate 43 mL/min (>60); Glucose 127 mg/dL (80-110); HEMOLYSIS < 15 (0-50); Sodium 138 mmol/L (137-145); Total Protein 6.5 g/dL (6.3-8.2)
[2022-05-06 06:08] LABS: Add Manual Diff / Slide Review NO; Basophils Absolute Auto 0 /uL (0-100); Basophils Percent Auto 0.1 % (0-2); Eosinophils Absolute Auto 0 /uL (0-450); Hematocrit 21.7 % (41-53); Hemoglobin 7.1 g/dL (13.5-17.5); Lymphocytes Absolute Auto 500 /uL (1100-4500); Mean Corpuscular HGB Conc 32.7 % (30-36); Mean Corpuscular Hemoglobin 30.3 PG (26-34); Mean Corpuscular Volume 92.9 fL (80-100); Monocytes Absolute Auto 200 /uL (0-900); Monocytes Percent Auto 2.5 % (3-14); Neutrophils Absolute Auto 5700 /uL (1500-7000); Neutrophils Percent Auto 89.4 % (50-75); Platelet Count 252 X10^3/uL (150-400); Potassium 5.4 mmol/L (3.4-5.1); Red Blood Cell Count 2.34 X10^6/uL (4.5-5.9); Red Cell Distribution Width 14.8 % (11.6-14.8); White Blood Cell Count 6.3 X10^3/uL (4.5-11.0)
[2022-05-06 06:14] LABS: NT-proBNP (BNP-Adult 18+) 4330 pg/mL (<450)
[2022-05-06] MEDS: HYDROCODONE/ACET 5/325 TABLET 1 TAB PO (07:52)
[2022-05-06] MEDS: ENOXAPARIN 40 MG/0.4 ML SYRINGE SUBCUT (08:38)
[2022-05-06] MEDS: ALBUTEROL 2.5 MG/3 ML NEB (ADULT) INH (08:38)
[2022-05-06] MEDS: ASPIRIN 81 MG CHEW TAB PO (08:38)
[2022-05-06] MEDS: BUDESONIDE 0.5 MG/2 ML NEB INH (08:38)
[2022-05-06] MEDS: FOLIC ACID 1 MG TABLET PO (08:38)
[2022-05-06] MEDS: PANTOPRAZOLE DR 40 MG TABLET PO (08:38)
[2022-05-06] MEDS: LORazepam 0.5 MG TABLET PO (08:38)
[2022-05-06] MEDS: THIAMINE 100 MG TABLET PO (08:39)
[2022-05-06] MEDS: METOPROLOL IR 50 MG TABLET 25 MG PO (08:39)
[2022-05-06] MEDS: MULTIVITAMIN 1 TABLET 1 TAB PO (08:39)
--- NOTE | 2022-05-06 09:54 | PM.PN.1 ---
Subjective Subjective Date Patient Seen: 05/06/22 Time Patient Seen: 09:54 Interval history: Patient doing well sitting in a chair said he had a good night. Complaining of less hip pain. CT scan showed no acute fracture. Think his accomplish relation of arthritis and radicular pain from his back. He is eating well. Oxygen status is stable. Vital signs are stable afebrile. White blood cell count is mildly improved. Reviewed laboratory tests CT scans and x-rays. Discussed discharge plan with patient. Previously has had difficulty with alf care. Exam Vital Signs (past 8 hours): - 05/06/22 04:00 05/06/22 05:33 05/06/22 08:00 Temperature 97.9 F 97.1 F L Pulse Rate 75 77 Respiratory Rate 17 Blood Pressure 119/62 123/57 L Pulse Oximetry 95 94 94 Oxygen Delivery Method Oxygen Flow Rate 2 1 0 Fraction of Inspired Oxygen 05/06/22 08:38 Temperature Pulse Rate 76 Respiratory Rate 18 Blood Pressure Pulse Oximetry 94 Oxygen Delivery Method Room Air Oxygen Flow Rate 0 Fraction of Inspired Oxygen 21 Fraction of Inspired Oxygen 21 SaO2/FiO2 Ratio 447 Oxygen Delivery Method Room Air Oxygen Flow Rate 0 Narrative Exam Narrative: Gen.: Patient alert oriented some mild tremors HEENT: Pupils equal round and reactive or mucosa is moist no lymphadenopathy Cardio: S1-S2 systolic murmur regular rhythm Respiratory: Decreased breath sounds throughout with some scattered wheezes. Lower lung crackles more present on the left than the right Abdomen: Soft obese nontender Extremities: Warm dry perfused with some edema Objective Labs 05/06/22 05:28 05/06/22 05:28 Labs: Laboratory Results - last 24 hr 05/05/22 05/05/22 05/05/22 11:15 13:00 13:00 WBC RBC Hgb Hct MCV MCH MCHC RDW Plt Count Neut % (Auto) Lymph % (Auto) Douglas % (Auto) Eos % (Auto) Baso % (Auto) Neut # (Auto) Lymph # (Auto) Douglas # (Auto) Eos # (Auto) Baso # (Auto) Sodium Potassium Chloride Carbon Dioxide BUN Creatinine Estimated GFR BUN/Creatinine Ratio Glucose Calcium Magnesium 1.7 Iron 30 L TIBC 276 % Saturation 11 L Transferrin 189 L Ferritin 262 Total Bilirubin AST ALT Alkaline Phosphatase NT-Pro-B Natriuret Pep Total Protein Albumin Globulin Albumin/Globulin Ratio Vitamin B12 388 Folate 8.2 SARS-CoV-2 (PCR) Negative Blood Type Antibody Screen 05/05/22 05/06/22 05/06/22 13:00 05:28 05:28 WBC 6.3 D RBC 2.34 L Hgb 7.1 L Hct 21.7 L MCV 92.9 MCH 30.3 MCHC 32.7 RDW 14.8 Plt Count 252 Neut % (Auto) 89.4 H Lymph % (Auto) 8.0 L Douglas % (Auto) 2.5 L Eos % (Auto) 0.0 L Baso % (Auto) 0.1 Neut # (Auto) 5700 Lymph # (Auto) 500 L Douglas # (Auto) 200 Eos # (Auto) 0 Baso # (Auto) 0 Sodium 138 Potassium 5.4 H Chloride 104 Carbon Dioxide 24 BUN 40 H Creatinine 1.57 H Estimated GFR 43 L BUN/Creatinine Ratio 25.5 H Glucose 127 H Calcium 9.1 Magnesium Iron TIBC % Saturation Transferrin Ferritin Total Bilirubin 0.5 AST 32 ALT 18 Alkaline Phosphatase 66 NT-Pro-B Natriuret Pep 4330 H Total Protein 6.5 Albumin 3.5 Globulin 3.0 Albumin/Globulin Ratio 1.2 Vitamin B12 Folate SARS-CoV-2 (PCR) Blood Type A Positive Antibody Screen Negative COUNTS INCLUDE 234 BEDS AT THE [facility] Medical History Acute respiratory failure with hypoxia Chronic back pain (~1959) COPD (chronic obstructive pulmonary disease) Gout (~2011) History of lung cancer History of urinary incontinence Lung cancer (~2007) Moderate aortic stenosis by prior echocardiogram Pancreatitis (~2005) Vision disorder Surgical History Anesthesia History of lung surgery (~03/2007) Family History Father Heart disease Grandmother Age: 82 Ovarian cancer, unspecified laterality Mother Diabetes mellitus Sister No problems noted. Social History marital status: household members: friend(s) Smoking Status: Current every day smoker alcohol intake: former substance use type: does not use Assessment & Plan Assessment and plan (1) Pneumonia: Status: Acute Plan Pneumonia. Patient with pneumonia and pleural effusion on left lung. Patient had elevated white blood cell count. Patient has concomitant respiratory failure. We are going to go ahead and continue treat with doxycycline 100 mg twice daily. Patient is improving clinically. He does state he feels better today. Afebrile white blood cell count looks good. COPD with acute exacerbation. Patient oxygen dependent at times at home. He has been giving albuterol nebulizers inhaled steroids IV steroids and antibiotics. Oxygen requirements is less today less wheezing on lung exam compared to previously. One more dose of IV steroids today then convert to oral steroids. 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 CT scan from yesterday reviewed shows no acute fracture of hip. Will continue with pain management continue with hydrocodone increase patient's dose of regular scheduled gabapentin to see if we can provide better pain relief. Acute anemia. No signs of loss. Vitamin B12 folic acid iron panels are unrevealing as source of deficiency. Maybe more of anemia of chronic disease pattern. I am worried about his hemoglobin being 7 with his underlying heart as well as chronic oxygen requirement. I think it transfusion will be beneficial and will proceed with that today. Hyperkalemia. Due to underlying kidney dysfunction. Continue with gentle diuresis with Lasix today. Alcohol misuse disorder. Scheduled lorazepam. No signs of significant withdrawal continue with CIWA per protocol. Aortic stenosis moderate to severe. Some signs of fluid overload with elevated BNP and generalized edema and pleural effusion on lungs continue with IV diuresis with Lasix. Lung cancer patient history of lung cancer with partial lobectomy and concerning lesion on additional CT scan which will need follow-up Hyperlipidemia continue with atorvastatin Gastroesophageal reflux continue with pantoprazole Disposition plan work with physical therapy continue with IV steroids IV antibiotics and IV Lasix with a blood transfusion today. Work with physical therapy. Anticipate discharge 48 hours will required [facility] Time Spent With Patient Critical Care time: I spent a total of [] minutes of critical care time on this patient's care today; this time is exclusive of procedural time. Quality VTE Deep Vein Thrombosis/Pulmonary Embolism Present on Admission: No
[2022-05-06] MEDS: methylPREDNISolone 125 MG/2 ML VIAL 60 MG IV (10:24)
[2022-05-06] MEDS: LORazepam 0.5 MG TABLET 1 MG PO (10:25)
[2022-05-06] MEDS: GABAPENTIN 300 MG CAPSULE PO (10:25)
[2022-05-06] MEDS: FUROSEMIDE 40 MG/4 ML VIAL IV ×2 (10:25→17:15)
--- NOTE | 2022-05-06 11:47 | CM.DANOTE ---
Initial DCP Assessment Note Pt is an 86yo male, resident of [facility], returns to the ER with right leg pain (here approx 2 weeks ago for same) patient w/known Degenerative disc disease of lumbar spine with spinal stenosis and right hip pain- CT scan from yesterday reviewed shows no acute fracture of hip Patient admitted for the third time in 2 months, now for Pneumonia and COPD exacerbation w/resp failure, hx falls at home, Current with [facility] services According to notes, inpatient status has been confirmed from time of admission 05.05.22 PCP: Jeffrey Jennings Payer: JENA/Jocelin Reviewed chart, met w/patient to introduce self, role and review DCP options. Patient confirms he still lives w/ SO Lizz who assists him with cooking, chores and assist w/transfers, dressing and bathing as needed. PT currently recommending SNF; patient hopes to return home. Asked patient how Lizz will care for him? Patient says he has friends that will come to help. Spoke w/Lizz and later with [facility] Adi Pate. Adi had gotten referral to follow patient in the outpatient setting r/t multiple falls at home and SO's inability to help patient back up Patient, SO Lizz, [facility] Adi, PT and Dr Jennings appear now to agree that patient will require SNF stay upon discharge and request is for referral to [facility] This DOUGHNUT MACHINE OPERATOR HELPER will plan to review back up SNF choices electronically with patient and SO using CM IPAD ALYSHA Amanda Discharge Planning/Care Management CM Discharge Assessment Start: 05/06/22 11:20 Freq: Status: Active Protocol: Document 05/06/22 11:23 FRAN (Rec: 05/06/22 11:47 FRAN [id number]) Discharge Planning Assessment Assigned Process Developer ALYSHA Smith DPOA/Assigned Designee Name Lizz Hutton S.Antonella Contact Information [phone] Advance Directives? Yes: POLST Advance Directives on File Yes History Provided By Patient,Medical Record Has Patient been admitted in last 30 No days? Comment Here 1.4-1.9.23 Prior Living Arrangements House Household Members significant other,friend(s) Type of transportation used prior to Drives own vehicle admit Comment Patient says once I get in the car, I'm okay (to drive) Independent with ADL's No Is patient alert and oriented? Yes Needs Assistance With Grooming,Meal Prep,Home Chores / Shopping Patient/Family Preference Fdc Facility,Home with Home Health Comment PT recommending SNF thus far
--- NOTE | 2022-05-06 13:17 | PT-IP ANOTE ---
Nsg states pt coughing up blood. Pt in state of distress and very confused and inappropriate to attempt to work with PT. Will continue to assess and check back later.
[2022-05-06] MEDS: LORazepam 2 MG/ML INJ 1 MG IV (13:28)
[2022-05-06] MEDS: LORazepam 2 MG/ML INJ IV ×2 (13:48→19:05)
[2022-05-07] VITALS (11 sets, daily range): BP systolic 116–138; BP diastolic 47–79; PULSE 69–104; RESP 16–20; TEMP 36.2–36.7; O2SAT 89–96
[2022-05-07] MEDS: DOXYCYCLINE 100 MG in SODIUM CHLORIDE 0.9% 100 ML IV ×2 (03:36→16:02)
[2022-05-07 06:18] LABS: Add Manual Diff / Slide Review NO; Basophils Absolute Auto 0 /uL (0-100); Eosinophils Absolute Auto 0 /uL (0-450); Hematocrit 25.2 % (41-53); Hemoglobin 8.2 g/dL (13.5-17.5); Lymphocytes Absolute Auto 700 /uL (1100-4500); Lymphocytes Percent Auto 7.1 % (25-40); Mean Corpuscular HGB Conc 32.6 % (30-36); Mean Corpuscular Hemoglobin 30.7 PG (26-34); Mean Corpuscular Volume 94.3 fL (80-100); Monocytes Absolute Auto 700 /uL (0-900); Monocytes Percent Auto 8.1 % (3-14); Neutrophils Absolute Auto 7800 /uL (1500-7000); Neutrophils Percent Auto 84.8 % (50-75); Platelet Count 282 X10^3/uL (150-400); Red Blood Cell Count 2.67 X10^6/uL (4.5-5.9); Red Cell Distribution Width 14.9 % (11.6-14.8); White Blood Cell Count 9.2 X10^3/uL (4.5-11.0)
[2022-05-07 06:57] LABS: Alanine Aminotransferase 16 IU/L (<50); Albumin 3.7 g/dL (3.5-5.0); Albumin Globulin Ratio 1.2 (1.0-2.8); Alkaline Phosphatase 61 U/L (38-126); Aspartate Aminotransferase 29 IU/L (17-59); BUN Creatinine Ratio 29.3 (6-22); Bilirubin Total 0.5 mg/dL (0.2-1.3); Blood Urea Nitrogen 44 mg/dL (9-20); Calcium 9.6 mg/dL (8.4-10.2); Carbon Dioxide 28 mmol/L (22-32); Chloride 103 mmol/L (98-107); Estimated Glomerular Filt Rate 46 mL/min (>60); Globulin 3.1 g/dL (1.7-4.1); Glucose 122 mg/dL (80-110); HEMOLYSIS < 15 (0-50); Potassium 4.8 mmol/L (3.4-5.1); Sodium 141 mmol/L (137-145); Total Protein 6.8 g/dL (6.3-8.2)
[2022-05-07] MEDS: BUDESONIDE 0.5 MG/2 ML NEB INH ×2 (08:40→19:17)
[2022-05-07] MEDS: ALBUTEROL 2.5 MG/3 ML NEB (ADULT) INH ×3 (08:40→19:17)
--- NOTE | 2022-05-07 08:52 | PM.PN.1 ---
Subjective Subjective Date Patient Seen: 05/07/22 Interval history: The pt reports overall feeling well this morning. He has no specific concerns. He feels is breathing is at baseline. He continues to have a productive cough, but does not feel it is worse than usual. He has been out of bed minimally. He denies any chest pain, abdominal pain. The pt is willing to discharge to SNF, but requests not [facility] due their poor food options and still in [place]. Exam Vital Signs (past 8 hours): - 05/07/22 04:00 Temperature 97.3 F L Pulse Rate 69 Blood Pressure 126/74 Pulse Oximetry 96 Oxygen Flow Rate 2 Fraction of Inspired Oxygen 21 SaO2/FiO2 Ratio 447 Oxygen Delivery Method Room Air Oxygen Flow Rate 2 Narrative Exam Narrative: Gen: NAD, sitting comfortably in bed, eating breakfast, easily conversant in complete sentences CV: RRR, no murmurs Resp: decreased breath sounds on the left, right side with diffuse end-expiratory wheezing, mild crackles Abd: soft, nontender, normoactive bowel sounds Ext: trace edema Objective Labs 05/07/22 04:55 05/07/22 04:55 Labs: Laboratory Results - last 24 hr 05/05/22 05/07/22 05/07/22 13:00 04:55 04:55 WBC 9.2 RBC 2.67 L Hgb 8.2 L Hct 25.2 L MCV 94.3 MCH 30.7 MCHC 32.6 RDW 14.9 H Plt Count 282 Neut % (Auto) 84.8 H Lymph % (Auto) 7.1 L [place] % (Auto) 8.1 Eos % (Auto) 0.0 L Baso % (Auto) 0.0 Neut # (Auto) 7800 H Lymph # (Auto) 700 L [place] # (Auto) 700 Eos # (Auto) 0 Baso # (Auto) 0 Sodium 141 Potassium 4.8 Chloride 103 Carbon Dioxide 28 BUN 44 H Creatinine 1.50 H Estimated GFR 46 L BUN/Creatinine Ratio 29.3 H Glucose 122 H Calcium 9.6 Total Bilirubin 0.5 AST 29 ALT 16 Alkaline Phosphatase 61 Total Protein 6.8 Albumin 3.7 Globulin 3.1 Albumin/Globulin Ratio 1.2 Blood Type A Positive Antibody Screen Negative Crossmatch See Detail [facility] [place] Medical History Acute respiratory failure with hypoxia Chronic back pain (~1959) COPD (chronic obstructive pulmonary disease) Gout (~2011) History of lung cancer History of urinary incontinence Lung cancer (~2007) Moderate aortic stenosis by prior echocardiogram Pancreatitis (~2005) Vision disorder Surgical History Anesthesia History of lung surgery (~03/2007) Family History Father Heart disease Grandmother Age: 82 Ovarian cancer, unspecified laterality Mother Diabetes mellitus Sister No problems noted. 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 Pt found to have pneumonia and COPD exacerbation. 1) Community-acquired pneumonia with pleural effusion on left with acute hypoxic respiratory failure: WBC count normalized, respiratory failure resolved. Stable and improving. Received IV Lasix yesterday with moderate output. - Continue Doxycycline - Repeat IV Lasix 40mg today 2) COPD with acute exacerbation: Improving with oxygen requirement at baseline. Wheezing minimally on exam today. - Transition to PO Prednisone 60mg daily - Continue Nebulizers 3) Degenerative disc disease of lumbar spine with spinal stenosis and right hip pain:? CT scan from 05/05 shows no acute fracture of hip.? Pt reports pain stable today. - Continue hydrocodone - Continue Gabapentin at increased dosing 4) Acute anemia: Most likely due to chronic disease with normal B12, folic acid. Iron level was slightly low, with normal TIBC however. S/P 2 units PRBCs yesterday with appropriate rise. - Continue to monitor. Will repeat transfusion if Hgb < 8. - Start iron supplement 5) Hyperkalemia: Resolved 6) Alcohol misuse disorder: CIWA quite elevated yesterday, coming down now. - Continue scheduled Lorazepam with PRN as per protocol 7) Aortic stenosis moderate to severe:? Some signs of fluid overload with elevated BNP, generalized edema, and pleural effusion on lungs at admission. S/P IV Lasix yesterday with moderate output. LE edema improving. - Repeat IV Lasix 40mg today 8) Hx of lung cancer s/p partial lobectomy: Concerning lesion on CT scan recently. - Outpatient f/u 9) Hyperlipidemia: - Continue with atorvastatin 10) Gastroesophageal reflux: - Continue with pantoprazole FEN: General Code: DNR DVT ppx: Lovenox Dispo: Pt likely stable for d/c tomorrow. Will continue to work with PT. Will need d/c to SNF, which pt is theoretically agreeable to but will need help with location. Care management aware and working on placement. Time Spent With Patient Critical Care time: I spent a total of [] minutes of critical care time on this patient's care today; this time is exclusive of procedural time. Quality VTE Deep Vein Thrombosis/Pulmonary Embolism Present on Admission: No
[2022-05-07] MEDS: THIAMINE 100 MG TABLET PO (09:19)
[2022-05-07] MEDS: METOPROLOL IR 50 MG TABLET 25 MG PO ×2 (09:19→20:35)
[2022-05-07] MEDS: predniSONE 20 MG TABLET 60 MG PO (09:19)
[2022-05-07] MEDS: ASPIRIN 81 MG CHEW TAB PO (09:20)
[2022-05-07] MEDS: MULTIVITAMIN 1 TABLET 1 TAB PO (09:20)
[2022-05-07] MEDS: FOLIC ACID 1 MG TABLET PO (09:20)
[2022-05-07] MEDS: PANTOPRAZOLE DR 40 MG TABLET PO (09:20)
[2022-05-07] MEDS: GABAPENTIN 300 MG CAPSULE PO ×3 (09:20→20:34)
[2022-05-07] MEDS: LORazepam 2 MG/ML INJ 1 MG IV ×3 (09:20→20:33)
[2022-05-07] MEDS: ENOXAPARIN 40 MG/0.4 ML SYRINGE SUBCUT (09:20)
[2022-05-07] MEDS: ACETAMINOPHEN 325 MG TABLET 650 MG PO (11:05)
[2022-05-07] MEDS: HYDROCODONE/ACET 5/325 TABLET 1 TAB PO ×2 (11:06→18:29)
[2022-05-07] MEDS: FERROUS SULFATE 325 MG TABLET PO (11:16)
--- NOTE | 2022-05-07 12:17 | PT.IPTN ---
Current Diagnoses Chronic obstructive pulmonary disease with (acute) exacerbation (05/05/22) Spinal stenosis, site unspecified (05/05/22) Physical Therapy Treatment Note M2 PT-IP Current Condition Start: 05/05/22 12:52 Freq: NEEDED Status: Active Protocol: Document 05/05/22 15:40 AW (Rec: 05/05/22 16:23 AW [id number]) Physical Therapy Current Condition Current Condition Evaluation Date 05/05/22 Treatment Diagnosis falls, function-limiting right hip pain Onset Date 05/04/22 M3 PT-IP Subjective Start: 05/05/22 12:52 Freq: NEEDED Status: Active Protocol: Document 05/07/22 11:52 LJ (Rec: 05/07/22 12:17 LJ [id number]) Subjective Physical Therapy Visit Type Type Treatment Note Visit Start Time 10:28 Visit Stop Time 10:52 Total Visit Minutes 24 Number of INFORMATICS SCIENTIST Visits 1 Physical Therapy Visit Comments Patient Comments Willing to participate in PT Therapy Pain Assessment Pain When Pain Assessed During Mobility Pain Present Pain Present Pain Reported Location Right Leg Scale Used declines to give number M4 PT-IP Mobility and Gait Start: 05/05/22 12:52 Freq: NEEDED Status: Active Protocol: Document 05/07/22 11:52 LJ (Rec: 05/07/22 12:17 LJ [id number]) PT-Bed Mobility Assessment Supine to Sit Supine to Sit Moderate Assistance,1 Person Assistance,Bedrails Scooting Scooting to Edge of Bed Contact Guard Assistance PT-Transfer Assessment Sit to and From Stand Sit to and from Stand Maximum Assistance,1 Person Assistance,Use of Upper Extremities Equipment Transfer Assistive Device Gait Belt,Front Wheeled Walker Transfers Transfer Destination Chair Transfer Technique several small steps w/FWW Transfer Ability Level of Assist Moderate Assistance Comments Mobility Comments Pt lying in bed willing to get up to the chair. ModA supine> sit with HOB elevated. Sit<> stand MaxA and cues for hand placement and back extension. Took 2x attempting to stand from bed. Pt then took several impulsive steps to the chair next to the bed. Uncontrolled stand>sit in chair causing Rhip pain. Pt instructed to stand again to reposition in chair. Given proper hand placement verbally and CGA. Pt stood several seconds then landed back into chair. Again pt given verbal and tactile cues for hand placement. Pt then stood for 20 sec with improved posture but requested to sit again. Verbalizing increased pain in right hip after mobility. Pt made comfortable in chair and given all needs within reach. Nsg notified pt needed chair alarm . Gait Assessment Comments Gait Comments Steps taken at bedside only. See mobility comments. Stair Climbing Assessment Comments Stair Climbing Comments Not able to progress to gait or stairs today. PT-Balance Assessment Comments Other Balance Tests/Deviations/Treatment Pt leans away from painful : right side in sitting and standing. M5 PT-IP Objective Assessments Start: 05/05/22 12:52 Freq: NEEDED Status: Active Protocol: Document 05/05/22 15:40 AW (Rec: 05/05/22 16:23 AW [id number]) Orientation Orientation/Cognition Level of Alertness Confusional State Orientation Name,Year,Place,Situation Language Function Ability No Deficits Noted Strength Upper Extremity Strength Assessment Bilaterally Impaired Shoulder 4/5 Elbow 4/5 Lower Extremity Strength Hip R 3/5; L 4-/5 Knee 4-/5 Ankle 4-/5 Comments Strength Comments History of ongoing hip pain (R more affected than L) Sensation Assessment Sensation Gross Sensation Right LE Impaired,Left LE Impaired Light Touch Impaired M6 PT-IP Treatment Start: 05/05/22 12:52 Freq: NEEDED Status: Active Protocol: Document 05/07/22 11:52 LJ (Rec: 05/07/22 12:17 LJ [id number]) Physical Therapy Treatment Education Education Provided Safety M7 PT-IP Assessment and Plan Start: 05/05/22 12:52 Freq: NEEDED Status: Active Protocol: Document 05/07/22 11:52 LJ (Rec: 05/07/22 12:17 LJ [id number]) PT Summary Assessment and Plan Potential Rehabilitation Potential Fair Status of Condition at Evaluation Evolving Summary Impairments Pain,Strength,Balance, Sensation,Cognition,Bed Mobility,Transfers,Gait, Activity Tolerance Assessment Summary Pt needing Mod-MaxA with bed mobility, transfers, and short gait distance. Unable to stand for more than 20 sec which does not allow for gait training. Discharge to SNF due to level of assist needed for limited mobility at this time . Will continue to assess for best discharge plan. Recommend mechanical lift transfers with nursing. Goals Bed Mobility Goal Standby Assistance Transfer Goal Contact Guard Assistance,Front Wheeled Walker Gait Goal Contact Guard Assistance,Front Wheel Walker Gait Distance 75 Other Goals - up/down 4 steps with single rail CGA - progress gait and transfers to SBA with 4WW Days to Meet Goals 10 Frequency of Treatment Frequency Of Treatment Once a Day Treatment Plan Physical Therapy Treatment Plan Bed Mobility Training,Transfer Training,Gait Training, Therapeutic Exercise,Balance Retraining,Discharge Planning, Hot or Cold Pack,Neuromuscular Re-ed Precautions Other Precautions falls, supplemental O2 Recommendations To Nursing Amount of Assist Needed Mechanical Lift Discharge Recommendations PT Discharge Recommendations SNF Rehab Transportation Needs at Discharge Wheelchair/Cabulance
[2022-05-07] MEDS: ATORVASTATIN 20 MG TABLET PO (20:34)
[2022-05-08] VITALS (10 sets, daily range): BP systolic 126–149; BP diastolic 66–91; PULSE 80–90; RESP 14–20; TEMP 36.1–36.2; O2SAT 89–97
[2022-05-08] MEDS: DOXYCYCLINE 100 MG in SODIUM CHLORIDE 0.9% 100 ML IV (03:50)
[2022-05-08 05:55] LABS: Add Manual Diff / Slide Review NO; Basophils Absolute Auto 0 /uL (0-100); Basophils Percent Auto 0.1 % (0-2); Eosinophils Absolute Auto 0 /uL (0-450); Hematocrit 25.6 % (41-53); Hemoglobin 8.4 g/dL (13.5-17.5); Lymphocytes Absolute Auto 700 /uL (1100-4500); Mean Corpuscular HGB Conc 32.7 % (30-36); Mean Corpuscular Hemoglobin 30.5 PG (26-34); Mean Corpuscular Volume 93.1 fL (80-100); Monocytes Absolute Auto 1000 /uL (0-900); Neutrophils Absolute Auto 13000 /uL (1500-7000); Neutrophils Percent Auto 87.9 % (50-75); Platelet Count 282 X10^3/uL (150-400); Red Blood Cell Count 2.75 X10^6/uL (4.5-5.9); White Blood Cell Count 14.8 X10^3/uL (4.5-11.0)
[2022-05-08 06:06] LABS: Alanine Aminotransferase 24 IU/L (<50); Albumin 3.5 g/dL (3.5-5.0); Albumin Globulin Ratio 1.2 (1.0-2.8); Alkaline Phosphatase 56 U/L (38-126); Aspartate Aminotransferase 79 IU/L (17-59); BUN Creatinine Ratio 38.2 (6-22); Bilirubin Total 0.3 mg/dL (0.2-1.3); Blood Urea Nitrogen 52 mg/dL (9-20); Calcium 9.4 mg/dL (8.4-10.2); Carbon Dioxide 29 mmol/L (22-32); Chloride 104 mmol/L (98-107); Estimated Glomerular Filt Rate 51 mL/min (>60); Glucose 129 mg/dL (80-110); HEMOLYSIS < 15 (0-50); Potassium 4.8 mmol/L (3.4-5.1); Sodium 139 mmol/L (137-145); Total Protein 6.5 g/dL (6.3-8.2)
--- NOTE | 2022-05-08 07:15 | PM.PN.1 ---
Subjective Subjective Date Patient Seen: 05/08/22 Time Patient Seen: 07:15 Interval history: Patient seen in coverage for Dr. Jennings who is gone as well as Dr. Davalos who's day off is today. Patient known to me from prior admission in February when I admitted him to the hospital. It looks like he is had 2 additional admissions including this 1 since that time. This time admitted for increased weakness with dyspnea on chronic respiratory failure probably pneumonia on top of COPD exacerbation. Patient also known to have possible new right-sided lung cancer with a suspicious nodule, although Oncology feels like this is more likely a benign finding in the right lung and has merely recommended short interval follow-up with CT. History of left-sided lung cancer status post lobectomy. His current findings are left-sided with probable new pneumonic type infiltrate and very small effusion. Patient also with aortic valve disease and history of congestive heart failure with preserved ejection fraction. Patient also with alcohol misuse disorder demonstrating some alcohol withdrawal during this hospitalization although recent CIWA scores have been improved in the 5 range or so Patient also with evidence of acute kidney injury although that seems to have improved and resolved during this hospitalization. In addition patient was also recurrently anemic with hemoglobin/hematocrit in the 7-21 range. This has improved after red blood cell transfusion has remained stable Overall this presentation as I review it seems very similar to the presentation in February when I admitted him. During this hospitalization he is improved. His renal function appears to be back to baseline. His respiratory status appears to be approaching baseline. His chronic respiratory failure with hypoxia seems to be pretty much at baseline He is globally weak requiring additional assistance and recommendation is for placement in [facility] Basically he is much improved. This morning his white blood cell count has increased a bit. He remains afebrile. Oxygen requirements are unchanged from previous. Remainder of his chemistries etcetera are unremarkable His biggest complaint this morning is severe right hip pain which is been ongoing for months. Plain film imaging has failed to reveal a bony etiology and CT of the pelvis also failed to demonstrate any evidence of fracture avascular necrosis or other changes. He continues to have quite a bit of difficulty bearing weight and certainly ambulating on that right hip which is been his biggest issue aside from his respiratory issues Exam Vital Signs (past 8 hours): - 05/08/22 04:00 Temperature 97 F L Pulse Rate 89 Respiratory Rate 18 Blood Pressure 149/78 H Pulse Oximetry 91 Oxygen Flow Rate 0 Fraction of Inspired Oxygen 21 SaO2/FiO2 Ratio 447 Oxygen Delivery Method Nasal Cannula Oxygen Flow Rate 0 Objective Labs 05/08/22 05:18 05/08/22 05:18 Labs: Laboratory Results - last 24 hr 05/08/22 05/08/22 05:18 05:18 WBC 14.8 H D RBC 2.75 L Hgb 8.4 L Hct 25.6 L MCV 93.1 MCH 30.5 MCHC 32.7 RDW 15.0 H Plt Count 282 Neut % (Auto) 87.9 H Lymph % (Auto) 5.0 L [place] % (Auto) 7.0 Eos % (Auto) 0.0 L Baso % (Auto) 0.1 Neut # (Auto) 56769 H Lymph # (Auto) 700 L [place] # (Auto) 1000 H Eos # (Auto) 0 Baso # (Auto) 0 Sodium 139 Potassium 4.8 Chloride 104 Carbon Dioxide 29 BUN 52 H Creatinine 1.36 H Estimated GFR 51 L BUN/Creatinine Ratio 38.2 H Glucose 129 H Calcium 9.4 Total Bilirubin 0.3 AST 79 H ALT 24 Alkaline Phosphatase 56 Total Protein 6.5 Albumin 3.5 Globulin 3.0 Albumin/Globulin Ratio 1.2 [facility] Medical History Acute respiratory failure with hypoxia Chronic back pain (~1959) COPD (chronic obstructive pulmonary disease) Gout (~2011) History of lung cancer History of urinary incontinence Lung cancer (~2007) Moderate aortic stenosis by prior echocardiogram Pancreatitis (~2005) Vision disorder Surgical History Anesthesia History of lung surgery (~03/2007) Family History Father Heart disease Grandmother Age: 82 Ovarian cancer, unspecified laterality Mother Diabetes mellitus Sister No problems noted. Social History marital status: household members: significant other and friend(s) Smoking Status: Current every day smoker alcohol intake: former substance use type: does not use Assessment & Plan Assessment & Plan narrative: 1. Pneumonia with COPD exacerbation and worsening respiratory failure-patient from a respiratory standpoint clinically seems to be much improved. White blood cell count did increase however there is no other findings to suggest worsening infection. Perhaps the leukocytosis is secondary to his higher dose steroids, even though they were started several days ago upon admission. He continues on IV doxycycline and I think can probably be switched to oral doxycycline after this morning's dose parental antibiotics. Continue with the prednisone 60 mg daily. Given patient's overall clinical stability do not see an indication for repeat chest x-ray etcetera. However if he has any sort of worsening symptoms increasing oxygen requirement etcetera than would start with repeat plain film chest x-ray consider CT scan specially to follow his spiculated right lung nodule etcetera 2. Chronic anemia-patient's numbers seem to be relatively stable. No changes for now. Patient is also being followed by Oncology given the abnormality in his chest as above and at this point is felt like his anemia is a chronic disease process. No evidence of active bleeding etcetera. His anemia is longstanding and I think other than monitoring at this time no specific intervention necessary 3. Acute kidney injury-patient's renal function appears to be back to baseline based on this morning's numbers. No specific intervention at this point. 4. Alcohol withdrawal symptoms in the setting of patient with chronic alcohol misuse disorder-patient continues on CIWA protocol with improved numbers. Continue to monitor and continue to use benzodiazepines for treatment 5. Aortic stenosis-patient clinically does not appear to have issues related to his aortic stenosis. His heart failure probably least has some element of connection to this but currently I think he is probably euvolemic 6. Right hip pain-no evidence of bony injury such as occult fracture or avascular necrosis etcetera. Could consider MR of the hip but I think the CT was pretty definitive reviewing with Radiology. Continue with skilled therapies and continue to monitor. Perhaps the prednisone being given for his respiratory issues might provide some benefit in this regard as well. 7. Disposition-patient as per skilled therapies will require placement in [facility]. This is been the biggest issue as patient does not want to leave the [place] area however has thus far refused placement at [facility] which is the only available [facility] facility in [place]. Continue discussion with patient, and hopefully he will be in agreement and plan for placement as soon as tomorrow depending on bed availability. I believe patient be ready for discharge from medical standpoint by tomorrow morning, assuming there are no additional issues that develop in the next 24 hours COVID-19 COVID-19 status: Negative Result date/Date tested (Pos, Neg/Pending): 05/05/22 Quality VTE Deep Vein Thrombosis/Pulmonary Embolism Present on Admission: No
[2022-05-08] MEDS: ALBUTEROL 2.5 MG/3 ML NEB (ADULT) INH ×3 (08:32→17:06)
[2022-05-08] MEDS: BUDESONIDE 0.5 MG/2 ML NEB INH (08:32)
--- NOTE | 2022-05-08 10:20 | PC.NURSE ---
Addendum entered by Lona Eli R.N. 05/08/22 15:42: Patient somulent and sleeping at this time. Ativan not given as he has been appropriate and his CIWA is 1. Gabapentin held at this time to as patient has been groggy on and off today. He is alert and oriented x3. Addendum entered by Lona Eli R.N. 05/08/22 12:38: Patient has an open area on his r.buttock, possibly from a shearing incident. This may have been caused by lifting the patient up in bed. Cream applied to area and allevyn dressing applied to area. Morning ativan not needed. Patient is calm, cooperative, and his shaking is much better. He is also more alert and answering questions appropriately. Original Note: Assess- Patient is alert and oriented x2. He is visiting with his significant other now. LS are wnl, and patient is on room air. He denies pain upon resting. He has a condom catheter in place draining yellow urine.
[2022-05-08] MEDS: predniSONE 20 MG TABLET 60 MG PO (10:40)
[2022-05-08] MEDS: THIAMINE 100 MG TABLET PO (10:41)
[2022-05-08] MEDS: PANTOPRAZOLE DR 40 MG TABLET PO (10:41)
[2022-05-08] MEDS: GABAPENTIN 300 MG CAPSULE PO ×2 (10:41→20:27)
[2022-05-08] MEDS: METOPROLOL IR 50 MG TABLET 25 MG PO ×2 (10:41→20:28)
[2022-05-08] MEDS: FOLIC ACID 1 MG TABLET PO (10:41)
[2022-05-08] MEDS: ENOXAPARIN 40 MG/0.4 ML SYRINGE SUBCUT (10:41)
[2022-05-08] MEDS: ASPIRIN 81 MG CHEW TAB PO (10:41)
[2022-05-08] MEDS: MULTIVITAMIN 1 TABLET 1 TAB PO (10:41)
[2022-05-08] MEDS: FERROUS SULFATE 325 MG TABLET PO (10:41)
[2022-05-08] MEDS: DOCUSATE 100 MG CAPSULE PO (10:42)
--- NOTE | 2022-05-08 13:39 | CM.DPNOTE ---
DCP Note Reviewed chart, patient expected to be medically cleared tomorrow Placed call to August at [facility], a bed will be available tomorrow and transport has been arranged tentatively for [address] Discussed plan with patient and SO Mireille at bedside. Patient admits he is not thrilled about plan r/t his dislike of the food options at [facility], however, able to also admit that he needs more assist right now than Mireille can provide Patient inevitably agreeable to discharge to [facility] tomorrow, SO Mireille will meet patient over there tomorrow if patient is discharged Plan: Anticipate DC to [facility] when medically cleared, likely via w/c van, following closely for coordination JW
[2022-05-08] MEDS: DOXYCYCLINE HYCLATE 100 MG TABLET PO (16:46)
--- NOTE | 2022-05-08 17:08 | PT.IPTN ---
Current Diagnoses Chronic obstructive pulmonary disease with (acute) exacerbation (05/05/22) Spinal stenosis, site unspecified (05/05/22) Physical Therapy Treatment Note M2 PT-IP Current Condition Start: 05/05/22 12:52 Freq: NEEDED Status: Active Protocol: Document 05/08/22 14:45 SP (Rec: 05/08/22 17:39 SP [id number]) Physical Therapy Current Condition Current Condition Evaluation Date 05/05/22 Treatment Diagnosis falls, function-limiting right hip pain Onset Date 05/04/22 M3 PT-IP Subjective Start: 05/05/22 12:52 Freq: NEEDED Status: Active Protocol: Document 05/08/22 14:45 SP (Rec: 05/08/22 17:39 SP [id number]) Subjective Physical Therapy Visit Type Type Treatment Note Visit Start Time 16:45 Visit Stop Time 17:08 Total Visit Minutes 23 Notes Vitals: supine: BP 151/75 HR 92 SaO2 92% on RA resting. with mobility: SaO2 decreases to 87-88% on RA, increased to 95% with supplimental 1L O2 within seconds and ed for breath. Once recovered removed O2 and maintained Mid 90s on RA. Respiratory therapist entered room when leaving for breathing tx. Number of OUTBOUND SALES ADVISOR Visits 2 Physical Therapy Visit Comments Patient Comments Willing to participate in PT Patient Goals Pt wants to be able to bear weight and walk as normal Therapy Pain Assessment Pain When Pain Assessed During Mobility Pain Present Pain Present Pain Reported Location Right Leg Scale Used Moderate pain R anterior hip- no scale given w/mobility Description With Movement Pain Behaviors Facial Grimacing,Restlessness Pain Management Techniques Distraction,Modification of Treatment,Re-positioning M4 PT-IP Mobility and Gait Start: 05/05/22 12:52 Freq: NEEDED Status: Active Protocol: Document 05/08/22 14:45 SP (Rec: 05/08/22 17:39 SP [id number]) PT-Bed Mobility Assessment Supine to Sit Supine to Sit Moderate Assistance,1 Person Assistance,Head of Bed Elevated,Bedrails Scooting Scooting to Edge of Bed Contact Guard Assistance, Minimal Assistance PT-Transfer Assessment Sit to and From Stand Sit to and from Stand Moderate Assistance,2 Person Assistance,Use of Upper Extremities Equipment Transfer Assistive Device Gait Belt,Front Wheeled Walker Orthotic/Prosthetic Devices or Brace: No Transfers Transfer Destination Chair,Bedside Commode Transfer Technique Stand Step Pivot Transfer Ability Level of Assist Moderate Assistance,2 Person Assistance,Use of Upper Extremities Comments Mobility Comments Mod A x1 elevated sup>sit using R bed rail, pulling from therapist hand. Scoot EOB CG/ Min A. STS Max A x1 w/ FWW cued push from bed 1 UE/ opp on FWW but pt impulsive hand placement and sway trunk stability recommending Mod Ax2 for safety. Brief stand tolerance 20 sec before sit EOB, Min/Mod A x1. SPT bed> chair, cued upright posture and contact slower FWW positioning Mod A x2 bed>chair , noted quick fall into chair descent MIn A x1, SPT chair<> BSC w/ FWW Mod A x2 (noted liquid BM uncontrolled during transfer), + SOB SaO2 decrease 87% on RA once sitting. Improved cues slow breath and brief supplimental 1L O2. Pt was able to sit on commode with close SBA for safety, impulsive and fall risk, tries at times to stand without FWW / staff when thought staff ready for him stand and assist pericare. STS Mod A x1 static stand w/FWW while [employer] assisted pericare, cued more standing posture/not bend over much due to can have LOB over front walker. SPT BSC> chair Mod A x2 w/FWW, cued back fully w/ FWW and reach back sit. Pt was up in chair with tray positioned from and dinner/ respiratory therapy in room for tx. Call light and all needs in reach and recommended to nursing provide pt chair alarm. Updated communication board Mod Ax2 transfers at this time. Will continue to assess progress. Gait Assessment Comments Gait Comments SPT bed>chair<> BSC, impulsive Mod A x2 w/ FWW. Stair Climbing Assessment Comments Stair Climbing Comments Not able to progress to gait or stairs today. Pt has 4 stairs R HR to enter home. PT-Balance Assessment Sitting Balance and Reactions Static Sitting Balance Ability Good Dynamic Sitting Balance Ability Fair Standing Balance and Reactions Static Standing Balance Ability Fair Dynamic Standing Balance Ability Poor Device Used FWW Comments Other Balance Tests/Deviations/Treatment Pt tends to lean L in sitting : away from R anterior hip due to pain. M5 PT-IP Objective Assessments Start: 05/05/22 12:52 Freq: NEEDED Status: Active Protocol: Document 05/05/22 15:40 AW (Rec: 05/05/22 16:23 AW [id number]) Orientation Orientation/Cognition Level of Alertness Confusional State Orientation Name,Year,Place,Situation Language Function Ability No Deficits Noted Strength Upper Extremity Strength Assessment Bilaterally Impaired Shoulder 4/5 Elbow 4/5 Lower Extremity Strength Hip R 3/5; L 4-/5 Knee 4-/5 Ankle 4-/5 Comments Strength Comments History of ongoing hip pain (R more affected than L) Sensation Assessment Sensation Gross Sensation Right LE Impaired,Left LE Impaired Light Touch Impaired M6 PT-IP Treatment Start: 05/05/22 12:52 Freq: NEEDED Status: Active Protocol: Document 05/08/22 14:45 SP (Rec: 05/08/22 17:39 SP [id number]) Physical Therapy Treatment Education Education Provided Safety M7 PT-IP Assessment and Plan Start: 05/05/22 12:52 Freq: NEEDED Status: Active Protocol: Document 05/08/22 14:45 SP (Rec: 05/08/22 17:39 SP [id number]) PT Summary Assessment and Plan Potential Rehabilitation Potential Fair Status of Condition at Evaluation Evolving Summary Impairments Pain,Strength,Balance, Sensation,Cognition,Bed Mobility,Transfers,Gait, Activity Tolerance Progress Towards Goals Slow Progress due to Pain,Slow Progress due to Medical Issues,Slow Progress due to Activity Tolerance Assessment Summary Pt requires Mod A x2 w/ FWW, flexed posture, WBOS, Heavy BUE and impulsive with FWW during transfers. bed mob elevated Max A x1 for trunk righting sit. Unable and not safe to assess stairs has to get into his home. Pt will require SNF for increased strength and functional mobility. Will continue to assess progress. Goals Bed Mobility Goal Standby Assistance Transfer Goal Contact Guard Assistance,Front Wheeled Walker Gait Goal Contact Guard Assistance,Front Wheel Walker Gait Distance 75 Other Goals - up/down 4 steps with single rail CGA - progress gait and transfers to SBA with 4WW Days to Meet Goals 10 Frequency of Treatment Frequency Of Treatment Once a Day Treatment Plan Physical Therapy Treatment Plan Bed Mobility Training,Transfer Training,Gait Training, Therapeutic Exercise,Balance Retraining,Discharge Planning, Hot or Cold Pack,Neuromuscular Re-ed Other Recommendations and Next Treatment bed mob, transfers and gait w/ Focus FWW, chair follow for safety. Precautions Other Precautions falls, supplemental O2 Recommendations To Nursing Amount of Assist Needed 2 Person Assist Discharge Recommendations PT Discharge Recommendations SNF Rehab Transportation Needs at Discharge Wheelchair/Cabulance
[2022-05-08] MEDS: ATORVASTATIN 20 MG TABLET PO (20:27)
[2022-05-08] MEDS: LORazepam 2 MG/ML INJ 1 MG IV (21:34)
[2022-05-09 02:11] VITALS: O2SAT 91
[2022-05-09 03:40] VITALS: BP 140/96; PULSE 94; RESP 20; O2SAT 97
[2022-05-09] MEDS: DOXYCYCLINE HYCLATE 100 MG TABLET PO (04:41)
[2022-05-09 07:00] VITALS: BP 151/97; PULSE 70; RESP 18; TEMP 36.3; O2SAT 96
--- NOTE | 2022-05-09 09:04 | P.DS_ITS ---
History of Present Illness History of Present Illness Date Patient Seen: 05/09/22 Chief complaint: GLF, Right leg pain Narrative: 86-year-old with severe COPD oxygen dependent history of lung cancer coronary artery disease aortic stenosis prostate cancer severe lumbar degenerative disc disease who has been in the hospital number of times this year.? He was brought in by ambulance today because of inability to walk and severe pain in his right hip.? Patient states that he is having some ongoing hip pain in fact he has been seen in the emergency department a couple of weeks ago.? Pain has been moderate to severe in intensity and this morning he is having weakness and difficulty with ambulating because of the pain.? He had x-rays and a CT scan 2 weeks ago which showed arthritis but no acute bony abnormalities.? Patient had a x-ray again today which shows moderate to severe arthritis without any bony abnormalities.? Patient has significant pain over his right hip joint.? And it is causing him difficulty with moving and walking.? Has home health at home and he does have a partner at home.? But he is obviously not capable of transferring himself. 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 He is on oxygen right now at 2-3 L.? His oxygen saturation is 97% he has chronic respiratory failure.? On lung exam he does have wheezes.? And coughing.? In the emergency department we reviewed his labs and he does have an elevated white blood cell count. He has history of alcoholism and alcohol use with mild withdrawal previously hospitalized and present on other hospitalizations.? He says he has been doing much better in the alcohol department. He has no complaints of headache or dizziness.? He is not complaining of active chest pain he is short of breath.? Having normal bowel movements and urination.? He does not complain of rectal bleeding or blood in his urine. Discharge Providers Provider Date of admission: 05/05/22 11:31 Discharge Date: 05/09/22 Primary care physician: Jeffrey Jennings MD Consults: 05/05/22 08:04 Consult to [facility]ence [place] Stat Comment: 05/05/22 08:30 Consult to Physical Therapy Evaluate & Treat Comment: Physician Instructions: Evaluate and Treat 05/05/22 12:06 Consult to Correspondence Representative Routine Comment: 05/05/22 12:14 Consult to Cardio/Pulmonary Rehabilitation Routine Comment: Physician Instructions: Evaluate and treat Consult to Dietitian, Adult Routine Comment: Reason For Exam: nutrition 05/06/22 09:53 Consult to Physical Therapy Evaluate & Treat Comment: Physician Instructions: Evaluate and Treat Discharge provider: Vesna Davalos MD Summary Hospital Course Discharge Diagnosis: Community acquired pneumonia Pleural effusion Acute hypoxic respiratory failure COPD with acute exacerbation Degenerative disc disease of lumbar spine Spinal stenosis Right hip pain Acute on chronic anemia of chronic disease Hyperkalemia Alcohol misuse disorder Moderate to severe aortic stenosis Hx of lung cancer s/p partial lobectomy Hyperlipidemia GERD Hospital Course: The pt presented with acute hypoxic respiratory failure thought to be due to pneumonia and COPD exacerbation, with pleural effusion present as well. He was started on IV antibiotics and IV steroids. He also received IV Lasix to help with his pleural effusion. His respiratory status improved to baseline, with intermittent oxygen use. The pt did have alcohol withdrawal while in the hospital, and was on scheduled Lorazepam. At the time of discharge, his CIWA scores were consistently low. His right hip pain remained, but the pt had negative xray and CT completed. He remains weak at discharge, and will be going to SNF/rehab for additional rehabilitiation. The pt will need additional f/u as an outpatient regarding new lung lesion seen on imaging. Status at Discharge Cognitive/behavioral status at discharge: oriented Functional status at discharge: uses cane/walker Overall status at discharge: patient is progressing back to baseline Exam Vital Signs (past 8 hours): - 05/09/22 02:11 05/09/22 03:40 05/09/22 07:00 Temperature 97.4 F L Pulse Rate 94 H 70 Respiratory Rate 20 18 Blood Pressure 140/96 H 151/97 H Pulse Oximetry 91 97 96 Oxygen Flow Rate 0 1 0 Fraction of Inspired Oxygen 21 SaO2/FiO2 Ratio 447 Oxygen Delivery Method Room Air Oxygen Flow Rate 0 Narrative Exam Narrative: Gen:? NAD, sitting comfortably in bed, easily conversant in complete sentences CV:? RRR, no murmurs Resp:? decreased breath sounds on the left, expiratory wheezing Abd:? soft, nontender, normoactive bowel sounds Ext:? trace edema Objective Labs 05/09/22 Unknown 05/09/22 09:55 [facility] Medical History Acute respiratory failure with hypoxia Chronic back pain (~1960) COPD (chronic obstructive pulmonary disease) Gout (~2011) History of lung cancer History of urinary incontinence Lung cancer (~2007) Moderate aortic stenosis by prior echocardiogram Pancreatitis (~2005) Vision disorder Surgical History Anesthesia History of lung surgery (~03/2007) Family History Father Heart disease Grandmother Age: 82 Ovarian cancer, unspecified laterality Mother Diabetes mellitus Sister No problems noted. Social History marital status: household members: significant other and friend(s) Smoking Status: Current every day smoker alcohol intake: former substance use type: does not use Discharge Plan Discharge Plan Patient Disposition: SNF Discharge orders & Medications Prescriptions: New acetaminophen 325 mg Tablet 650 mg PO Q6H PRN (Reason: Fever/Mild Pain (1-3)) Qty: 30 0RF hydrocodone-acetaminophen 5-325 mg Tablet 1 tab PO Q6H PRN (Reason: pain) Qty: 30 0RF docusate sodium 100 mg Capsule 100 mg PO BID Qty: 60 0RF ferrous sulfate 325 mg (65 mg iron) Tablet 325 mg PO DAILY Qty: 30 0RF doxycycline hyclate 100 mg Tablet 100 mg PO Q12H Qty: 7 0RF folic acid 1 mg Tablet 1 mg PO DAILY Qty: 30 0RF prednisone 20 mg Tablet See Rx Instructions .ROUTE .COMPLEX Qty: 18 0RF Rx Instructions: Take 3 tabs x 3 days, 2 tabs x 3 days, 1 tab x 3 days gabapentin [Neurontin] 300 mg Capsule 300 mg PO TID Qty: 90 0RF thiamine mononitrate (vit B1) 100 mg Tablet 100 mg PO DAILY Qty: 30 0RF multivitamin with folic acid [Tab-A-Aranza] 400 mcg Tablet 1 tab PO DAILY Qty: 30 0RF Continued lidocaine [Lidoderm] 5 % adhesive patch,medicated 1 patch TOP DAILY Qty: 15 0RF Rx Instructions: to R lower back/hip albuterol sulfate [Ventolin HFA] 90 mcg/actuation HFA aerosol inhaler 2 puff INHALATION Q4H PRN (Reason: Shortness Of Breath) Qty: 8.5 3RF Rx Instructions: 2 puffs every 4-6 hours as needed for shortness of breath - use with spacer cyclobenzaprine 10 mg tablet 10 mg PO TID PRN (Reason: muscle spasm) Qty: 30 0RF aspirin 81 mg tablet,chewable 81 mg PO DAILY acetaminophen 325 mg tablet 650 mg PO BID Patient Comments: TAKE TWO TABLETS BY MOUTH EVERY SIX HOURS NEEDED FOR FEVER/MILD PAIN metoprolol tartrate 50 mg tablet 25 mg PO BID Patient Comments: TAKE A 1/2 A TABLET BY MOUTH EVERY TWELVE HOURS pantoprazole 40 mg tablet,delayed release (DR/EC) 40 mg PO DAILY Patient Comments: TAKE ONE TABLET BY MOUTH ONE TIME DAILY diphenhydramine HCl [Benadryl] 25 mg Capsule 50 mg PO BEDTIME fluticasone propion-salmeterol 250-50 mcg/dose blister with device 1 inh INHALATION BID Patient Comments: INHALE ONE PUFF BY MOUTH TWO TIMES DAILY atorvastatin 20 mg tablet 20 mg PO BEDTIME Patient Comments: TAKE 1 TABLET BY MOUTH EVERY NIGHT AT BEDTIME Discontinued gabapentin 300 mg capsule 300 mg PO BEDTIME Qty: 30 1RF hydrocodone-acetaminophen 5-325 mg tablet 1 tab PO Q6H PRN (Reason: pain) Qty: 30 0RF Follow up/Referrals: Jeffrey Jennings MD [Primary Care Provider] - 2 Weeks Discharge Health Status Precautions: [place] Diet/Activity/Treatments Diet: Diet as Tolerated and Regular Liquid consistency: Normal/Thin Food texture: Regular [facility] Rehab type: Physical therapy and Occupational therapy Visit Report/Discharge Packet Stand Alone Forms: Patient Portal/API, Stroke Signs & Symptoms Discharge Data Primary Care Provider: Jeffrey Jennings Discharges patient from system. Discharge Date/Time: 05/09/22 11:40 Quality VTE Deep Vein Thrombosis/Pulmonary Embolism Present on Admission: No
[2022-05-09] MEDS: ALBUTEROL 2.5 MG/3 ML NEB (ADULT) INH (09:23)
[2022-05-09] MEDS: BUDESONIDE 0.5 MG/2 ML NEB INH (09:23)
[2022-05-09 09:43] LABS: Add Manual Diff / Slide Review NO; Basophils Absolute Auto 100 /uL (0-100); Basophils Percent Auto 0.5 % (0-2); Eosinophils Absolute Auto 0 /uL (0-450); Hematocrit 27.9 % (41-53); Lymphocytes Absolute Auto 1200 /uL (1100-4500); Lymphocytes Percent Auto 8.7 % (25-40); Mean Corpuscular HGB Conc 32.1 % (30-36); Mean Corpuscular Hemoglobin 30.2 PG (26-34); Mean Corpuscular Volume 94.1 fL (80-100); Monocytes Absolute Auto 1100 /uL (0-900); Monocytes Percent Auto 7.4 % (3-14); Neutrophils Absolute Auto 11900 /uL (1500-7000); Neutrophils Percent Auto 83.4 % (50-75); Platelet Count 289 X10^3/uL (150-400); Red Blood Cell Count 2.97 X10^6/uL (4.5-5.9); Red Cell Distribution Width 14.9 % (11.6-14.8); White Blood Cell Count 14.3 X10^3/uL (4.5-11.0)
[2022-05-09 09:55] VITALS: PULSE 86; RESP 18; O2SAT 97
--- NOTE | 2022-05-09 10:00 | PC.NURSE ---
Addendum entered by Lona Eli R.N. 05/09/22 11:40: Patient discharged to [facility], report called. IV taken out. Out in a facility wheel chair. Report called. Original Note: Assess- Patient is alert and oriented x2. He will be going to [facility] care center today. He is resting comfortably.
[2022-05-09 10:03] LABS: Alanine Aminotransferase 25 IU/L (<50); Albumin 3.6 g/dL (3.5-5.0); Albumin Globulin Ratio 1.2 (1.0-2.8); Alkaline Phosphatase 52 U/L (38-126); Aspartate Aminotransferase 51 IU/L (17-59); BUN Creatinine Ratio 46.2 (6-22); Bilirubin Total 0.3 mg/dL (0.2-1.3); Blood Urea Nitrogen 54 mg/dL (9-20); Calcium 9.9 mg/dL (8.4-10.2); Carbon Dioxide 29 mmol/L (22-32); Chloride 107 mmol/L (98-107); Estimated Glomerular Filt Rate > 60 mL/min (>60); Glucose 111 mg/dL (80-110); HEMOLYSIS < 15 (0-50); Sodium 142 mmol/L (137-145); Total Protein 6.6 g/dL (6.3-8.2)
[2022-05-09] MEDS: METOPROLOL IR 50 MG TABLET 25 MG PO (10:05)
[2022-05-09] MEDS: ASPIRIN 81 MG CHEW TAB PO (10:05)
[2022-05-09] MEDS: FERROUS SULFATE 325 MG TABLET PO (10:05)
[2022-05-09] MEDS: predniSONE 20 MG TABLET 60 MG PO (10:05)
[2022-05-09] MEDS: FOLIC ACID 1 MG TABLET PO (10:05)
[2022-05-09] MEDS: PANTOPRAZOLE DR 40 MG TABLET PO (10:05)
[2022-05-09] MEDS: GABAPENTIN 300 MG CAPSULE PO (10:05)
[2022-05-09] MEDS: ENOXAPARIN 40 MG/0.4 ML SYRINGE SUBCUT (10:06)
[2022-05-09] MEDS: MULTIVITAMIN 1 TABLET 1 TAB PO (10:06)
[2022-05-09 10:09] LABS: COVID19 -Nasal RAPID Negative (Negative)
--- NOTE | 2022-05-09 11:13 | CM.DPNOTE ---
DC Note Discharge to [facility] today; patient and SO remain agreeable to plan. NORA Galvez, has kindly agreed to coordinate this plan at [facility]. Dr Davalos completed DC ppk; DC med list, all DC ppk and completed and signed PASRR sent to [facility]. P/u at 1100. ERIC Zamorano notified and agreeable, will plan to call report Plan: Discharge to [facility] via w/c today, SO Mireille plans to meet patient at [facility] once settled JW
== END 2022-05-09 11:40 | DRG 193 ==
LOC: ED 10:49 → AC 12:02
PROVIDERS: Family Medicine; Admitting Provider Family Medicine; Emergency Provider Family Medicine; Family Provider Family Medicine; PCP Family Medicine; Referring Provider Emergency Medicine; Visit Provider Family Medicine
DX: J18.9 Pneumonia, unspecified organism (principal); J96.01 Acute respiratory failure with hypoxia; J44.1 Chronic obstructive pulmonary disease with (acute) exacerbation; J90 Pleural effusion, not elsewhere classified; F10.939 Alcohol use, unspecified with withdrawal, unspecified; F17.210 Nicotine dependence, cigarettes, uncomplicated; I35.0 Nonrheumatic aortic (valve) stenosis; E78.5 Hyperlipidemia, unspecified; K21.9 Gastro-esophageal reflux disease without esophagitis; M51.36 Other intervertebral disc degeneration, lumbar region; M48.061 Spinal stenosis, lumbar region without neurogenic claudication; M25.551 Pain in right hip; E87.5 Hyperkalemia; D63.8 Anemia in other chronic diseases classified elsewhere; Z85.118 Personal history of other malignant neoplasm of bronchus and lung; Z66 Do not resuscitate; Z99.81 Dependence on supplemental oxygen; Z20.822 Contact with and (suspected) exposure to COVID-19
CPT/HCPCS: 36415; 36430; 71045; 72192; 73502; 80053; 81003; 82607; 82728; 82746; 83540; 83550; 83690; 83735; 83880; 85025; 86850; 86900; 86901; 87635; 94640; 94760; 97162; 97530; 99223; 99232; 99233; 99238; 99284; C9803; P9016; J1650; J1940; J2060; J2930; J7613

== ENCOUNTER → 2022-08-18 11:15 | Outpatient (CLI) | payer MEDICARE, OTHER, SELFPAY ==
[2022-05-05 12:01] VITALS: BMI 36.6
--- NOTE | 2022-08-18 11:16 | DI.CT.S_ITS ---
PROCEDURE: CT CHEST WO CON INDICATIONS: f/u pulmonary nodule TECHNIQUE: Noncontrast 2.0-2.5 mm thick sections acquired from the pulmonary apices to the posterior costophrenic angles. 7 mm thick axial MIP and 5 mm coronal and sagittal reformats were then acquired. A low radiation dose technique was utilized. COMPARISON: [facility], CT, CT CHEST WO CON, 04/15/2022, 14:59. FINDINGS: Image quality: Diagnostic, given the low radiation dose technique. Lungs and pleura: Interval growth of the right upper lobe nodule measuring 2.1 x 1.2 cm, previously 1.1 x 0.9 cm (series 3, image 66). Prior left upper lobectomy. Substantial paraseptal emphysema and moderate centrilobular emphysema. Mediastinum: Heart size is enlarged. No pericardial effusion. No mediastinal adenopathy by size criteria. Thoracic aorta and central pulmonary arteries are normal in size. Esophagus is normal in caliber. No hiatal hernia. Annular calcification of the mitral valve. Bones and chest wall: No suspicious bony lesions. No vertebral body compression fractures. No axillary or supraclavicular adenopathy by size criteria. Thyroid gland is unremarkable . Abdomen: Stable 1.8 cm left adrenal nodule. IMPRESSION: Interval growth of the right upper lobe nodule, measuring 2.1 x 1.2 cm, previously 1.1 x 0.9 cm. Findings are concerning for malignancy. Consider PET/CT or biopsy. No evidence of devang disease. Small left pleural effusion. Fleischner Society criteria for SOLID lung nodule followup. Nodule size (mm)Low-risk patientHigh-risk patient<6 (single or multiple)No routine followup.Optional CT at 12 months. 6-8 (single or multiple)CT at 6-12 months, then optional CT at 18-24 mo.CT at 6-12 months, then CT at 18-24 months. >8 (single)CT at 3 months, PET-CT, or biopsy. Same as for low-risk pts. >8 (multiple)CT at 3-6 months, then optional CT at 18-24 mo.CT at 3-6 months, then CT at 18-24 months. Fleischner Society criteria for SUB-SOLID lung nodule followup. Solitary pure ground-glass nodules<6 mm (ground glass or part solid)No followup needed. 6 mm or larger (ground glass)CT at 6-12 months to confirm persistence, then CT every 2 years until 5 years.6 mm or larger (part solid)CT at 3-6 months to confirm persistence, then annual CT until 5 years if unchanged and solid component remains <6 mm. Multiple sub-solid nodules<6 mmCT at 3-6 months, then CT consider at 2 & 4 years for high risk patients. [address] at 3-6 months. Subsequent management based on most suspicious lesions. Recommendations do not apply to lung cancer screening, patients with immunosuppression, or patients with known primary cancer. Dictated by: Isaiah Tayolr M.D. on 08/18/2022 at 12:05 Approved by: Isaiah Taylor M.D. on 08/18/2022 at 12:15
== END ==
PROVIDERS: Family Provider Family Medicine; PCP Family Medicine; Referring Provider Family Medicine; Visit Provider Family Medicine
DX: R91.1 Solitary pulmonary nodule (principal); E27.9 Disorder of adrenal gland, unspecified; J90 Pleural effusion, not elsewhere classified; I34.81 Nonrheumatic mitral (valve) annulus calcification; I51.7 Cardiomegaly; J43.2 Centrilobular emphysema
CPT/HCPCS: 71250

== ENCOUNTER → 2023-01-02 08:53 | Outpatient (CLI) | payer MEDICARE, OTHER, SELFPAY ==
[2022-05-05 12:01] VITALS: BMI 36.6
[2023-01-02 09:25] LABS: Add Manual Diff / Slide Review NO; Basophils Absolute Auto 0 /uL (0-100); Basophils Percent Auto 0.6 % (0-2); Eosinophils Absolute Auto 200 /uL (0-450); Eosinophils Percent Auto 2.4 % (2-4); Hematocrit 34.1 % (41-53); Lymphocytes Absolute Auto 1100 /uL (1100-4500); Lymphocytes Percent Auto 13.9 % (25-40); Mean Corpuscular HGB Conc 32.1 % (30-36); Mean Corpuscular Hemoglobin 28.7 PG (26-34); Mean Corpuscular Volume 89.3 fL (80-100); Monocytes Absolute Auto 700 /uL (0-900); Monocytes Percent Auto 8.8 % (3-14); Neutrophils Absolute Auto 5800 /uL (1500-7000); Neutrophils Percent Auto 74.3 % (50-75); Platelet Count 191 X10^3/uL (150-400); Red Blood Cell Count 3.82 X10^6/uL (4.5-5.9); Red Cell Distribution Width 14.5 % (11.6-14.8); White Blood Cell Count 7.8 X10^3/uL (4.5-11.0)
[2023-01-02 09:53] LABS: Alanine Aminotransferase 10 IU/L (<50); Albumin 3.8 g/dL (3.5-5.0); Albumin Globulin Ratio 1.2 (1.0-2.8); Aspartate Aminotransferase 19 IU/L (17-59); BUN Creatinine Ratio 26.3 (6-22); Blood Urea Nitrogen 30 mg/dL (9-20); Calcium 9.9 mg/dL (8.4-10.2); Carbon Dioxide 27 mmol/L (22-32); Chloride 104 mmol/L (98-107); Estimated Glomerular Filt Rate > 60 mL/min (>60); Globulin 3.3 g/dL (1.7-4.1); Glucose 100 mg/dL (80-110); HEMOLYSIS < 15 (0-50); Sodium 142 mmol/L (137-145); Total Protein 7.1 g/dL (6.3-8.2)
[2023-01-02 09:59] LABS: Potassium 5.5 mmol/L (3.4-5.1)
[2023-01-02 10:17] LABS: Alkaline Phosphatase 66 U/L (38-126); Bilirubin Total 0.5 mg/dL (0.2-1.3)
[2023-01-02 10:24] LABS: Thyroid Stimulating Hormone 2.18 uIU/mL (0.47-4.68)
== END ==
PROVIDERS: Family Provider Family Medicine; PCP Family Medicine; Referring Provider Family Medicine; Visit Provider Family Medicine
DX: I50.9 Heart failure, unspecified (principal); I25.118 Atherosclerotic heart disease of native coronary artery with other forms of angina pectoris
CPT/HCPCS: 36415; 80053; 84443; 85025

== ENCOUNTER 2023-04-29 10:01 | Inpatient (IN) | payer MEDICARE, OTHER, SELFPAY ==
[2022-05-05 12:01] VITALS: BMI 36.6
[2023-04-29] VITALS (82 sets, daily range): BP systolic 95–186; BP diastolic 52–98; PULSE 69–93; RESP 10–45; TEMP 26.2–37.6; O2SAT 85–99; BMI 37.3; BMI 36.2
--- NOTE | 2023-04-29 10:04 | DI.RAD.S_ITS ---
PROCEDURE: XR CHEST 1V INDICATIONS: short of breath TECHNIQUE: One view of the chest was acquired. COMPARISON: [facility], CR, XR CHEST 1V, 05/05/2022, 10:57. FINDINGS: Surgical changes and devices: None. Lungs and pleura: Small left pleural effusion, slightly decreased compared to the last exam. Bilateral pulmonary infiltrates suspicious for bilateral pneumonia or pulmonary edema. The upper lungs are lucent, likely secondary to emphysematous fully. No pneumothorax. Mediastinum: Mediastinal contours appear normal. Heart size is moderately increased. Bones and chest wall: No suspicious bony lesions. Overlying soft tissues appear unremarkable. IMPRESSION: 1. Bilateral infiltrates suspicious for bilateral pneumonia or pulmonary edema. 2. Small left pleural effusion. 3. Emphysema. Dictated by: Katey Singh M.D. on 04/29/2023 at 10:39 Approved by: Katey Singh M.D. on 04/29/2023 at 10:41
[2023-04-29] MEDS: ALBUTEROL/IPRATROPIUM 3 ML AMPUL INH (10:12)
[2023-04-29 10:16] LABS: Add Manual Diff / Slide Review NO; Basophils Absolute Auto 0 /uL (0-100); Basophils Percent Auto 0.3 % (0-2); Eosinophils Absolute Auto 0 /uL (0-450); Eosinophils Percent Auto 0.2 % (2-4); Hematocrit 35.4 % (41-53); Hemoglobin 11.4 g/dL (13.5-17.5); Lymphocytes Absolute Auto 500 /uL (1100-4500); Mean Corpuscular HGB Conc 32.2 % (30-36); Mean Corpuscular Hemoglobin 30.1 PG (26-34); Mean Corpuscular Volume 93.3 fL (80-100); Monocytes Absolute Auto 1100 /uL (0-900); Neutrophils Absolute Auto 7100 /uL (1500-7000); Neutrophils Percent Auto 81.5 % (50-75); Platelet Count 157 X10^3/uL (150-400); Red Blood Cell Count 3.79 X10^6/uL (4.5-5.9); Red Cell Distribution Width 14.6 % (11.6-14.8); White Blood Cell Count 8.7 X10^3/uL (4.5-11.0)
--- NOTE | 2023-04-29 10:16 | ED.SOB ---
HPI - SOB/Dyspnea General Chief Complaint: Shortness of Breath/Dyspnea Stated Complaint: SOB/Lung CA on NRB Time Seen by Provider: 04/29/23 10:04 History of Present Illness HPI Narrative: Patient 87-year-old male history of lung cancer, COPD presents today with increasing shortness of breath. He is at 5 L on nasal cannula at home. However has required increased oxygen and required a non-rebreather with EMS. He has obvious respiratory distress. thought he might have a sinus infection. He is afebrile. He is quickly placed on a BiPAP and given DuoNeb and albuterol. Discussion if he wants intubation or not and he said ?whatever it takes.He reports that over the last 4 days or so he has had some increasing cough and shortness breath. He feels generally weak with decreased intake. Related Data Home Medications Medication Instructions Recorded Confirmed aspirin 81 mg chewable tablet 81 mg PO DAILY 12/17/17 04/29/23 diphenhydramine HCl 25 mg capsule 50 mg PO BEDTIME 05/05/22 04/29/23 (Benadryl) Previous Rx's Medication Instructions Recorded acetaminophen 325 mg tablet 650 mg (2 x 325 mg) PO Q6H PRN 05/09/22 Fever/Mild Pain (1-3) #30 tabs multivitamin with folic acid 400 1 tab PO DAILY #30 tabs 05/09/22 mcg tablet (Tab-A-Aranza) Disabled Parking #1 ea 05/27/22 fluticasone 250 mcg-salmeterol 50 1 inh inhalation BID #180 ea 05/27/22 mcg/dose blistr powdr for inhalation metoprolol succinate 25 mg 25 mg PO BID #180 tabs 09/22/22 tablet,extended release 24 hr albuterol sulfate 90 mcg/actuation 2 puff inhalation Q4H PRN 12/30/22 aerosol inhaler (Ventolin HFA) Shortness Of Breath #8.5 grams atorvastatin 20 mg tablet 20 mg PO ONCE PM #90 tabs 01/26/23 gabapentin 300 mg capsule 300 mg PO 3XD #90 caps 03/27/23 hydrocodone 5 mg-acetaminophen 325 1 tab PO BID pain #60 tabs 04/06/23 mg tablet Allergies Allergy/AdvReac Type Severity Reaction Status Date / Time No Known Drug Allergies Allergy Verified 04/29/23 10:35 Patient History Medical History (Updated 04/29/23 @ 14:35 by Jeffrey Jennings MD) Alcohol abuse History of lung cancer Moderate aortic stenosis by prior echocardiogram Acute respiratory failure with hypoxia COPD (chronic obstructive pulmonary disease) Vision disorder Gout (~2011) Chronic back pain (~1959) History of urinary incontinence Pancreatitis (~2005) Lung cancer (~2007) Surgical History Anesthesia History of lung surgery (~03/2007) Family History Father Heart disease Grandmother Age: 82 Ovarian cancer, unspecified laterality Mother Diabetes mellitus Sister No problems noted. Social History marital status: household members: significant other and friend(s) Smoking Status: Current every day smoker alcohol intake: former substance use type: does not use Smoking Status: Current every day smoker tobacco type: cigarettes alcohol intake frequency: 3 or more drinks per day Substance Use Type: does not use Exam Initial Vital Signs Initial Vital Signs: Vital Signs Temperature 99.6 F 04/29/23 10:01 Pulse Rate 88 04/29/23 10:01 Respiratory Rate 23 04/29/23 10:01 Blood Pressure 132/94 H 04/29/23 10:01 Pulse Oximetry 96 04/29/23 10:01 Oxygen Delivery Method Room Air 04/29/23 10:01 GENERAL: Patient 87-year-old male appears in moderate respiratory distress HEENT: Head atraumatic,EOMI, pupils reactive, face symmetric, moist mucous membranes CARDIOVASCULAR: Regular rate and rhythm without murmurs, rubs or gallops. RESPIRATORY: Obvious tachypnea with respiratory distress decreased breath sounds bilaterally ABDOMEN: Soft, nontender. Normoactive bowel sounds all 4 quadrants. No guarding or rebound. EXTREMITIES: Normal range of motion, no clubbing or edema. SKIN: Some mottling noted on skin, no erythema or petechiae Course Orders Ordered: ED Orders 04/29/23 10:04 XR chest 1V Stat Respiratory Panel (Film Array) Stat 04/29/23 10:10 Complete Blood Count AUTO DIFF Stat Comprehensive Metabolic Panel Stat Lactate (Lactic Acid) Stat NT-proBNP (BNP-Adult 18+) Stat PTT Partial Thromboplastin Ted Stat Procalcitonin Stat Prothrombin Time INR Stat Troponin & CK Cardiac Panel Stat 04/29/23 10:24 EKG-12 Lead Stat 04/29/23 10:33 BiPAP Ventilatory Support RT PROTOCOL 04/29/23 10:40 Blood Culture Stat 04/29/23 11:02 CT angio chest PE protocol Stat 04/29/23 11:43 Urinalysis and Microscopic Stat Acetaminophen (Acetaminophen 325 Mg Tablet) 650 mg PO Q6H PRN PRN Reason: Fever/Mild Pain (1-3) Hydrocodone Bitart/Acetaminophen (Hydrocodone/Acet 5/325 Tablet) 1 tab PO Q4H PRN PRN Reason: Pain, Moderate (4-6) Albuterol (Albuterol 2.5 Mg/3 Ml Neb (Adult)) 2.5 mg INH Q4H PRN PRN Reason: Shortness Of Breath Albuterol/Ipratropium (Albuterol/Ipratropium 3 Ml Ampul) 3 ml INH RTQ6HR PRN PRN Reason: Shortness Of Breath Aspirin (Aspirin 81 Mg Chew Tab) 81 mg PO DAILY [facility] Atorvastatin Calcium (Atorvastatin 20 Mg Tablet) 20 mg PO BEDTIME MARTIN Enoxaparin Sodium (Enoxaparin 40 Mg/0.4 Ml Syringe) 40 mg SUBCUT DAILY [facility] Folic Acid (Folic Acid 1 Mg Tablet) 1 mg PO DAILY [facility] Furosemide (Furosemide 40 Mg/4 Ml Vial) 40 mg IV Q8H MARTIN Last Admin: 04/29/23 16:40 Dose: Not Given Documented By: PETROS Gabapentin (Gabapentin 300 Mg Capsule) 300 mg PO TID [facility] Ceftriaxone Sodium 1,000 mg/ (Sodium Chloride) 100 mls @ 200 mls/hr IV Q24H MARTIN Stop: 05/03/23 11:29 Azithromycin 500 mg/ Dextrose 250 mls @ 250 mls/hr IV Q24H MARTIN Stop: 05/01/23 12:59 Lorazepam (Lorazepam 2 Mg/Ml Inj) 0 mg IV CIWAPRN PRN; Protocol PRN Reason: Alcohol Withdrawal Lorazepam (Lorazepam 1 Mg Tablet) 1 mg PO BEDTIME MARTIN Methylprednisolone (Methylprednisolone 40 Mg/Ml Vial) 60 mg IV DAILY [facility] Metoprolol Succinate (Metoprolol Er 25 Mg Tablet) 25 mg PO BID [facility] Multivitamins (Multivitamin 1 Tablet) 1 tab PO DAILY [facility] Naloxone HCl (Naloxone 0.4 Mg/Ml Vial) 0.2 mg IV Q2MIN PRN PRN Reason: Opiate Reversal Thiamine HCl (Thiamine 100 Mg Tablet) 100 mg PO DAILY MARTIN Stop: 05/03/23 09:01 Discontinued Medications Albuterol (Albuterol 2.5 Mg/3 Ml Neb (Adult)) 10 mg INH NOW ONE Stop: 04/29/23 10:28 Last Admin: 04/29/23 10:38 Dose: 10 mg Documented By: NATIVIDAD Albuterol/Ipratropium (Albuterol/Ipratropium 3 Ml Ampul) 3 ml INH NOW ONE Stop: 04/29/23 10:05 Last Admin: 04/29/23 10:12 Dose: 3 ml Documented By: CARIDAD Furosemide (Furosemide 40 Mg/4 Ml Vial) 40 mg IV NOW ONE Stop: 04/29/23 10:55 Last Admin: 04/29/23 11:02 Dose: 40 mg Documented By: GERALDINE Ceftriaxone Sodium 2,000 mg/ (Sodium Chloride) 100 mls @ 200 mls/hr IV NOW ONE Stop: 04/29/23 10:55 Last Infusion: 04/29/23 12:09 Dose: Infused Documented By: Admin: 04/29/23 11:02 Dose: 200 mls/hr Documented By: GERALDINE Azithromycin 500 mg/ Dextrose 250 mls @ 250 mls/hr IV NOW ONE Stop: 04/29/23 10:55 Last Infusion: 04/29/23 13:16 Dose: Infused Documented By: Admin: 04/29/23 12:09 Dose: 250 mls/hr Documented By: BENOIT Acetaminophen (Ofirmev) 1,000 mg in 100 mls @ 400 mls/hr IV NOW ONE Stop: 04/29/23 12:41 Last Infusion: 04/29/23 13:45 Dose: Infused Documented By: Admin: 04/29/23 13:16 Dose: 400 mls/hr Documented By: GERALDINE Lactated Ringer's (Lactated Ringers) 1,000 mls @ 21 mls/hr IV CONT MARTIN Last Admin: 04/29/23 16:33 Dose: Not Given Documented By: PETROS Methylprednisolone (Methylprednisolone 125 Mg/2 Ml Vial) 125 mg IV NOW ONE Stop: 04/29/23 10:28 Last Admin: 04/29/23 10:32 Dose: 125 mg Documented By: GERALDINE Vital Signs Vital signs: Vital Signs - 8 hr 04/29/23 10:01 04/29/23 10:09 04/29/23 10:15 Temperature 99.6 F Pulse Rate 88 86 Respiratory Rate 23 Blood Pressure 132/94 H 143/98 H Pulse Oximetry 96 99 Oxygen Delivery Method Room Air Fraction of Inspired Oxygen 04/29/23 10:15 04/29/23 10:21 04/29/23 10:21 Temperature Pulse Rate 86 89 Respiratory Rate 24 25 H Blood Pressure 153/90 H Pulse Oximetry 99 98 Oxygen Delivery Method Fraction of Inspired Oxygen 04/29/23 10:26 04/29/23 10:26 04/29/23 10:30 Temperature Pulse Rate 90 Respiratory Rate 25 H Blood Pressure 183/95 H 186/86 H Pulse Oximetry 85 L Oxygen Delivery Method Fraction of Inspired Oxygen 04/29/23 10:30 04/29/23 10:33 04/29/23 10:35 Temperature Pulse Rate 90 Respiratory Rate 25 H Blood Pressure 186/86 H 164/76 H Pulse Oximetry 97 Oxygen Delivery Method Fraction of Inspired Oxygen 44 04/29/23 10:35 04/29/23 10:38 04/29/23 10:40 Temperature Pulse Rate 85 84 Respiratory Rate 29 H 22 Blood Pressure 165/84 H Pulse Oximetry 98 98 Oxygen Delivery Method BiPAP BiPAP Fraction of Inspired Oxygen 30 04/29/23 10:40 04/29/23 10:45 04/29/23 10:45 Temperature Pulse Rate 83 84 Respiratory Rate 28 H 28 H Blood Pressure 158/72 H Pulse Oximetry 97 92 Oxygen Delivery Method BiPAP BiPAP Fraction of Inspired Oxygen 04/29/23 10:50 04/29/23 10:50 04/29/23 10:56 Temperature Pulse Rate 86 84 Respiratory Rate 27 H 34 H Blood Pressure 152/91 H Pulse Oximetry 93 95 Oxygen Delivery Method BiPAP BiPAP Fraction of Inspired Oxygen 04/29/23 10:56 04/29/23 11:00 04/29/23 11:00 Temperature Pulse Rate 81 Respiratory Rate 22 Blood Pressure 139/81 112/66 Pulse Oximetry 95 Oxygen Delivery Method BiPAP Fraction of Inspired Oxygen 04/29/23 11:05 04/29/23 11:05 04/29/23 11:11 Temperature Pulse Rate 80 79 Respiratory Rate 27 H 26 H Blood Pressure 112/65 Pulse Oximetry 95 96 Oxygen Delivery Method BiPAP BiPAP Fraction of Inspired Oxygen 04/29/23 11:11 04/29/23 11:15 04/29/23 11:15 Temperature Pulse Rate 81 Respiratory Rate 29 H Blood Pressure 126/62 135/65 Pulse Oximetry 95 Oxygen Delivery Method BiPAP Fraction of Inspired Oxygen 04/29/23 11:30 04/29/23 11:42 04/29/23 11:42 Temperature Pulse Rate 89 93 H Respiratory Rate 45 H 24 Blood Pressure 163/88 H Pulse Oximetry 94 89 L Oxygen Delivery Method BiPAP Fraction of Inspired Oxygen 04/29/23 11:45 04/29/23 11:45 04/29/23 11:50 Temperature Pulse Rate 92 H Respiratory Rate 28 H Blood Pressure 163/83 H 174/82 H Pulse Oximetry 92 Oxygen Delivery Method BiPAP Fraction of Inspired Oxygen 04/29/23 11:50 04/29/23 11:55 04/29/23 11:55 Temperature Pulse Rate 92 H 90 Respiratory Rate 33 H 32 H Blood Pressure 136/81 Pulse Oximetry 92 93 Oxygen Delivery Method Fraction of Inspired Oxygen 04/29/23 12:00 04/29/23 12:00 04/29/23 12:05 Temperature Pulse Rate 90 Respiratory Rate 26 H Blood Pressure 142/58 H 130/66 Pulse Oximetry 94 Oxygen Delivery Method Fraction of Inspired Oxygen 04/29/23 12:05 04/29/23 12:16 04/29/23 12:16 Temperature Pulse Rate 88 88 Respiratory Rate 30 H 27 H Blood Pressure 135/62 Pulse Oximetry 95 96 Oxygen Delivery Method BiPAP BiPAP Fraction of Inspired Oxygen 04/29/23 12:21 04/29/23 12:21 04/29/23 12:26 Temperature Pulse Rate 86 Respiratory Rate 26 H Blood Pressure 112/55 L 103/65 Pulse Oximetry 97 Oxygen Delivery Method BiPAP Fraction of Inspired Oxygen 04/29/23 12:26 04/29/23 12:30 04/29/23 12:30 Temperature Pulse Rate 85 84 Respiratory Rate 27 H 26 H Blood Pressure 106/56 L Pulse Oximetry 96 96 Oxygen Delivery Method BiPAP BiPAP Fraction of Inspired Oxygen 04/29/23 12:35 04/29/23 12:35 Temperature Pulse Rate 84 Respiratory Rate 22 Blood Pressure 114/58 L Pulse Oximetry 96 Oxygen Delivery Method BiPAP Fraction of Inspired Oxygen MDM - SOB/Dyspnea Lab Data 04/29/23 10:10 04/29/23 10:10 Labs: Lab Results 04/29/23 04/29/23 04/29/23 Range/Units 10:04 10:10 11:43 WBC 8.7 (4.5-11.0) X10^3/uL RBC 3.79 L (4.5-5.9) X10^6/uL Hgb 11.4 L (13.5-17.5) g/dL Hct 35.4 L (41-53) % MCV 93.3 (80-100) fL MCH 30.1 (26-34) PG MCHC 32.2 (30-36) % RDW 14.6 (11.6-14.8) % Plt Count 157 (150-400) X10^3/uL Neut % (Auto) 81.5 H (50-75) % Lymph % (Auto) 6.0 L (25-40) % [place] % (Auto) 12.0 (3-14) % Eos % (Auto) 0.2 L (2-4) % Baso % (Auto) 0.3 (0-2) % Neut # (Auto) 7100 H (3881-0910) /uL Lymph # (Auto) 500 L (6779-3274) /uL [place] # (Auto) 1100 H (0-900) /uL Eos # (Auto) 0 (0-450) /uL Baso # (Auto) 0 (0-100) /uL PT 11.9 (9.4-12.5) SECONDS INR 1.0 (0.9-1.3) APTT 37 H (25.1-36.5) SECONDS Sodium 141 (137-145) mmol/L Potassium 5.4 H (3.4-5.1) mmol/L Chloride 103 (98-107) mmol/L Carbon Dioxide 30 (22-32) mmol/L BUN 37 H (9-20) mg/dL Creatinine 1.23 (0.66-1.25) mg/dL Estimated GFR 58 L (>60) mL/min BUN/Creatinine Ratio 30.1 H (6-22) Glucose 125 H (80-110) mg/dL Lactate 1.2 (0.7-2.1) mmol/L Calcium 9.3 (8.4-10.2) mg/dL Total Bilirubin 0.7 (0.2-1.3) mg/dL AST 57 (17-59) IU/L ALT 44 (<50) IU/L Alkaline Phosphatase 107 (38-126) U/L Total Creatine Kinase 72 (55-170) U/L Troponin I < 0.012 (0.01-0.034) ng/mL NT-Pro-B Natriuret Pep 5910 H (<450) pg/mL Total Protein 8.2 (6.3-8.2) g/dL Albumin 4.2 (3.5-5.0) g/dL Globulin 4.0 (1.7-4.1) g/dL Albumin/Globulin Ratio 1.1 (1.0-2.8) Procalcitonin 0.13 (<0.5) ng/mL Urine Color Yellow Urine Appearance Clear Urine pH 5.0 (4.5-8.0) Ur Specific [place] 1.025 (1.000-1.035) Urine Protein Trace H (Negative) Urine Glucose (UA) Negative (Negative) g/dL Urine Ketones Negative (NEGATIVE) Urine Occult Blood Trace-intact (Negative) Urine Nitrate Negative (Negative) Urine Bilirubin Negative (NEGATIVE) Urine Urobilinogen 0.2 (0.2) E.U./dL Ur Leukocyte Esterase Negative (NEGATIVE) Urine RBC 0-1/hpf (0-5/HPF) Urine WBC None seen (0-5/HPF) Ur Squamous Epith Cells None seen (0-5/HPF) Urine Bacteria None seen (None) Ur Culture Indicated? Cult not indicated Vol Urine Centrifuged 10ml (spun) Chlamy pneumoniae PCR Not detected (Not Detect) Adenovirus (PCR) Not detected (Not Detect) B.parapertussis DNA PCR Not detected (Not Detecte) Coronavirus OC43 (PCR) Not detected (Not Detect) Coronavirus HKU1 (PCR) Not detected (Not Detect) Coronavirus 229E (PCR) Not detected (Not Detect) SARS-CoV-2 (PCR) Not detected (Not Detecte) Coronavirus NL63 (PCR) Not detected (Not Detect) Human Metapneumovir PCR Not detected (Not Detect) Influ A (H1N1 [place]) PCR Detected H (Not Detect) Influenza Type B (PCR) Not detected (Not Detect) M. pneumoniae (PCR) Not detected (Not Detect) Parainfluenza 1 (PCR) Not detected (Not Detect) Parainfluenza 2 (PCR) Not detected (Not Detect) Parainfluenza 3 (PCR) Not detected (Not Detect) Parainfluenza 4 (PCR) Not detected (Not Detect) RSV (PCR) Not detected (Not Detect) Entero/Rhino (PCR) Not detected (Not Detect) Imaging Data Chest x-ray: Radiologist's Impression: PROCEDURE: XR CHEST 1V INDICATIONS: short of breath TECHNIQUE: One view of the chest was acquired. COMPARISON: [facility], CR, XR CHEST 1V, 05/05/2022, 10:57. FINDINGS: Surgical changes and devices: None. Lungs and pleura: Small left pleural effusion, slightly decreased compared to the last exam. Bilateral pulmonary infiltrates suspicious for bilateral pneumonia or pulmonary edema. The upper lungs are lucent, likely secondary to emphysematous fully. No pneumothorax. Mediastinum: Mediastinal contours appear normal. Heart size is moderately increased. Bones and chest wall: No suspicious bony lesions. Overlying soft tissues appear unremarkable. IMPRESSION: 1. Bilateral infiltrates suspicious for bilateral pneumonia or pulmonary edema. 2. Small left pleural effusion. 3. Emphysema. Dictated by: Katey Singh M.D. on 04/29/2023 at 10:39 CT scan - chest: Radiologist's Impression: PROCEDURE: CT ANGIO CHEST PE PROTOCOL INDICATIONS: hypoxia TECHNIQUE: After the administration of intravenous contrast, 2 mm thick sections acquired from the pulmonary apices to the posterior costophrenic angles. 3-dimensional maximum intensity projection (MIP) coronal and sagittal reformats were then acquired through the thorax. For radiation dose reduction, the following was used: automated exposure control, adjustment of mA and/or kV according to patient size. COMPARISON: [facility], CT, CT CHEST WO CON, 08/18/2022, 11:39. FINDINGS: Image quality: Diagnostic. Pulmonary arteries: Pulmonary arteries are normal in size, and demonstrate no intraluminal filling defects to suggest central pulmonary embolism. Lower Neck: No enlarged lymph nodes. Thyroid: No thyroid nodules which require sonographic follow up, per consensus guidelines. Axillae: No enlarged lymph nodes. Chest Wall: Unremarkable. Bones: Unremarkable. Lungs and Pleura: No pneumothorax. There is a small left pleural effusion. There is severe apically predominant emphysema. Right posterior lung apex nodule is increased in size, currently measuring 28 mm diameter. Increased spiculated nodule within the right upper lobe anteriorly measuring 15 mm. There is a new right anterior lung base nodule measuring 8 mm. Moderate diffuse bilateral patchy ill-defined ground-glass density, as well as interstitial pulmonary opacity. Thickening of the segmental and subsegmental airways is present diffusely bilaterally. Heart: Heart size is enlarged. There is calcification of the coronary vasculature. No pericardial effusion. Thoracic Vessels: No aortic aneurysm. Mediastinum and Nicky: 18 mm short axis subcarinal adenopathy, new since the prior examination. Mild bilateral hilar adenopathy measuring roughly 10 mm short axis. Esophagus: No wall thickening. No hiatal hernia. Upper Abdomen: Reflux of contrast into the hepatic venous vasculature is present. IMPRESSION: 1. Moderate bilateral bronchopneumonia. 2. Severe emphysema. 3. Increased right apical pulmonary nodules, worrisome for malignancy. 4. Mediastinal and hilar adenopathy, which could represent reactive adenopathy versus metastatic adenopathy. 5. Small left pleural effusion. 6. Cardiomegaly and coronary artery disease. 7. Findings suggestive of right heart failure. This could be further assessed with echocardiography, if clinically indicated. Dictated by: Melissa Medeiros M.D. on 04/29/2023 at 11:36 ECG Data Interpretation: Sinus rhythm rate 83 NJ interval 198 QRS [address] changes artifact noted MDM Narrative Medical decision making narrative: Patient 87-year-old male with multiple comorbidities known lung cancer on home oxygen now presents today with increasing shortness of breath and respiratory distress. He had significant respiratory distress causing mottling and was immediately placed on BiPAP. He was given DuoNeb and albuterol treatment which actually did help. Blood work was reviewed WBC 8.7 with mild left shift, potassium 5.4, creatinine 1.2, lactate 1.2, troponin negative, BNP 5910 previously 4330 procalcitonin 0.13, urinalysis no evidence of infection, viral panel positive for influenza Imaging reviewed chest x-ray concerning for infiltrates or pulmonary edema with small left pleural effusion, CT angio does not show pulmonary embolism but does confirm bilateral bronchial pneumonia with emphysema with cardiomegaly small left pleural effusion Due to elevated BNP significant shortness of breath and pulmonary edema on both x-ray and CT he is also given Lasix. He is actually put out about a L of urine with 40 mg of Lasix. He continues to prove on BiPAP and can have conversation. Lung sounds are improving. He is given antibiotics Rocephin and Zithromax for community-acquired pneumonia. He is quite tachypneic and hypoxic but surprisingly not tachycardic hypotensive or febrile. Due to congestive heart failure he has not given sepsis fluids and not necessarily indicated at this time. Discussion with patient sounds as though he is full code but has DNR DNI on file. Dr. Jennings updated patient's symptoms test results and ED to see and evaluate patient, agrees with BiPAP and ICU Septic Shock Criteria [ ] lactic > 4 at any time [ ] SBP ,90 or MAP , 65 [ ] documentation of septic shock Time Septic Shock diagnosed: [ ] Septic Shock Determination. the patient has been screened and [ ] DOES meet criteria for septic shock x DOES NOT meet criteria for septic shock Goal directed therapy within 3 hours of septic shock or initial hypotension [ ] 30ml/kg fluid [ ] ABW used [ ] IBW (33.6) used due to BMI > 30 x patient or advocate declining fluid administration after shared decision making conversation Clinical reason for NOT initiating fluid bolus: [ reason CHF, not hypotensive renal failure etc] Within 6 hours (if continued hypotension after fluids or initial lactate >4) [ ] repeat volume status and tissue perfusion assessment documented after fluid bolus was completed at [Date/Time] Must include vital signs, cardiopulmonary exam, capillary refill, peripheral pulse evaluation, skin exam [ ] Initiate vasopressor therapy if persistent hypotension after adequate fluid bolus Critical Care Time Critical Care Time Critical Care Time: Yes Total Critical Care Time: 41 Attestation: The high probability of a clinically significant, sudden or life threatening deterioration of the [cardiovascular] system(s) required my full and direct attention, intervention and personal management. The aggregate critical care time was 41 minutes. This time is in addition to time spent performing reported procedures but includes the following: [x] Data Review and interpretation [x] Patient assessment and monitoring of vital signs [x] Documentation [x] Medication orders and management Discharge Plan Departure Patient Disposition: Admitted As Inpatient Clinical Impression: COPD exacerbation, Influenza A Respiratory failure Qualifiers: Chronicity: acute Respiratory failure complication: hypoxia Qualified Code(s): J96.01 - Acute respiratory failure with hypoxia CHF (congestive heart failure) Qualifiers: Heart failure type: diastolic Heart failure chronicity: acute Qualified Code(s): I50.31 - Acute diastolic (congestive) heart failure Pneumonia Qualifiers: Pneumonia type: due to unspecified organism Laterality: bilateral Lung location: lower lobe of lung Qualified Code(s): J18.9 - Pneumonia, unspecified organism Admit Date/Time: 04/29/23 12:36 Admit Provider: Jeffrey Jennings
[2023-04-29 10:22] LABS: Prothrombin Time 11.9 SECONDS (9.4-12.5)
[2023-04-29 10:27] LABS: Lactate (Lactic Acid) 1.2 mmol/L (0.7-2.1)
[2023-04-29 10:28] LABS: Alanine Aminotransferase 44 IU/L (<50); Albumin 4.2 g/dL (3.5-5.0); Albumin Globulin Ratio 1.1 (1.0-2.8); Alkaline Phosphatase 107 U/L (38-126); Aspartate Aminotransferase 57 IU/L (17-59); BUN Creatinine Ratio 30.1 (6-22); Bilirubin Total 0.7 mg/dL (0.2-1.3); Blood Urea Nitrogen 37 mg/dL (9-20); Calcium 9.3 mg/dL (8.4-10.2); Carbon Dioxide 30 mmol/L (22-32); Chloride 103 mmol/L (98-107); Creatine Kinase 72 U/L (55-170); Estimated Glomerular Filt Rate 58 mL/min (>60); Glucose 125 mg/dL (80-110); HEMOLYSIS < 15 (0-50); Potassium 5.4 mmol/L (3.4-5.1); Sodium 141 mmol/L (137-145); Total Protein 8.2 g/dL (6.3-8.2)
[2023-04-29 10:31] LABS: PTT Partial Thromboplastin Tim 37 SECONDS (25.1-36.5)
[2023-04-29] MEDS: methylPREDNISolone 125 MG/2 ML VIAL IV (10:32)
--- NOTE | 2023-04-29 10:32 | PC.NURSE ---
Pt placed on bipap by RT.
[2023-04-29 10:38] LABS: NT-proBNP (BNP-Adult 18+) 5910 pg/mL (<450)
[2023-04-29] MEDS: ALBUTEROL 2.5 MG/3 ML NEB (ADULT) 10 MG INH (10:38)
[2023-04-29 10:40] LABS: Troponin I < 0.012 ng/mL (0.01-0.034)
[2023-04-29 10:45] LABS: Procalcitonin 0.13 ng/mL (<0.5)
[2023-04-29] MEDS: cefTRIAXone 2,000 MG in SODIUM CHLORIDE 0.9% 100 ML 200 MG IV (11:02)
[2023-04-29] MEDS: FUROSEMIDE 40 MG/4 ML VIAL IV ×2 (11:02→20:32)
--- NOTE | 2023-04-29 11:02 | DI.CT.S_ITS ---
PROCEDURE: CT ANGIO CHEST PE PROTOCOL INDICATIONS: hypoxia TECHNIQUE: After the administration of intravenous contrast, 2 mm thick sections acquired from the pulmonary apices to the posterior costophrenic angles. 3-dimensional maximum intensity projection (MIP) coronal and sagittal reformats were then acquired through the thorax. For radiation dose reduction, the following was used: automated exposure control, adjustment of mA and/or kV according to patient size. COMPARISON: [facility], CT, CT CHEST WO [facility], 08/18/2022, 11:39. FINDINGS: Image quality: Diagnostic. Pulmonary arteries: Pulmonary arteries are normal in size, and demonstrate no intraluminal filling defects to suggest central pulmonary embolism. Lower Neck: No enlarged lymph nodes. Thyroid: No thyroid nodules which require sonographic follow up, per consensus guidelines. Axillae: No enlarged lymph nodes. Chest Wall: Unremarkable. Bones: Unremarkable. Lungs and Pleura: No pneumothorax. There is a small left pleural effusion. There is severe apically predominant emphysema. Right posterior lung apex nodule is increased in size, currently measuring 28 mm diameter. Increased spiculated nodule within the right upper lobe anteriorly measuring 15 mm. There is a new right anterior lung base nodule measuring 8 mm. Moderate diffuse bilateral patchy ill-defined ground-glass density, as well as interstitial pulmonary opacity. Thickening of the segmental and subsegmental airways is present diffusely bilaterally. Heart: Heart size is enlarged. There is calcification of the coronary vasculature. No pericardial effusion. Thoracic Vessels: No aortic aneurysm. Mediastinum and Nicky: 18 mm short axis subcarinal adenopathy, new since the prior examination. Mild bilateral hilar adenopathy measuring roughly 10 mm short axis. Esophagus: No wall thickening. No hiatal hernia. Upper Abdomen: Reflux of contrast into the hepatic venous vasculature is present. IMPRESSION: 1. Moderate bilateral bronchopneumonia. 2. Severe emphysema. 3. Increased right apical pulmonary nodules, worrisome for malignancy. 4. Mediastinal and hilar adenopathy, which could represent reactive adenopathy versus metastatic adenopathy. 5. Small left pleural effusion. 6. Cardiomegaly and coronary artery disease. 7. Findings suggestive of right heart failure. This could be further assessed with echocardiography, if clinically indicated. Dictated by: Melissa Medeiros M.D. on 04/29/2023 at 11:36 Approved by: Melissa Medeiros M.D. on 04/29/2023 at 11:46
[2023-04-29 11:08] LABS: Adenovirus Not Detected (Not Detect); B. parapertussis Not Detected (Not Detecte); Bordetella pertussis Not Detected (Not Detect); Chlamydophila pneumoniae Not Detected (Not Detect); Coronavirus 229E Not Detected (Not Detect); Coronavirus HKU1 Not Detected (Not Detect); Coronavirus NL 63 Not Detected (Not Detect); Coronavirus OC43 Not Detected (Not Detect); Human Metapneumovirus Not Detected (Not Detect); Human Rhinovirus/Enterovirus Not Detected (Not Detect); Influenza A H1-2009 Detected (Not Detect); Influenza B Not Detected (Not Detect); Mycoplasma pneumoniae Not Detected (Not Detect); Parainfluenza Virus 1 Not Detected (Not Detect); Parainfluenza Virus 2 Not Detected (Not Detect); Parainfluenza Virus 3 Not Detected (Not Detect); Parainfluenza Virus 4 Not Detected (Not Detect); Respiratory Syncytial Virus Not Detected (Not Detect); SARS- CoV-2 Not Detected (Not Detecte)
--- NOTE | 2023-04-29 11:47 | PC.NURSE ---
pt breathing easier,now on bipap. Pt still needing to sit upright or he becomes extremely SOB
[2023-04-29 11:51] LABS: Appearance Urine UA CLEAR; Bilirubin Urine UA NEGATIVE (NEGATIVE); Color Urine UA YELLOW; Glucose Urine UA NEGATIVE (Negative); Ketones Urine UA NEGATIVE (NEGATIVE); Leukocyte Esterase Urine UA NEGATIVE (NEGATIVE); Nitrite Urine UA NEGATIVE (Negative); Occult Blood Urine UA TRACE-INTACT (Negative); Protein Urine UA TRACE (Negative); Specific Gravity Urine UA 1.025 (1.000-1.035); Urobilinogen Urine UA 0.2 E.U./dL (0.2)
[2023-04-29 12:05] LABS: Bacteria Urine None Seen; Culture Indicated Urine Cult Not Indicated; RBC Urine 0-1/HPF (0-5/HPF); Squamous Epithelial Cell Urine None Seen (0-5/HPF); Urine Volume 10mL (spun); WBC Urine None Seen (0-5/HPF)
[2023-04-29] MEDS: AZITHROMYCIN 500 MG in DEXTROSE 5% IN WATER 250 ML 250 MG IV (12:09)
--- NOTE | 2023-04-29 13:02 | DI.ECHO.S_ITS ---
[place] +---------+ Hospital +---------+ : : [address] : : : : [id number] : : : : Phone: [phone] Echocardiogram Report + + :Name: ROXI SANDRA Study Date: 04/30/2023 Height: 70 in : [facility] ReadingLocation: Weight: 260 lb : : Gender: Male BSA: 2.3 m2 : :: 1935 Age: 87 yrs BP: 118/58 mmHg: :Reason For Study: CONGESTIVE HEART FAILURE : :Ordering Physician: OZIEL, : :ELIZABETH Performed By: Gina Dodge : :Referring: ELIZABETH LUDWIG : + + Interpretation Summary There is mild concentric left ventricular hypertrophy. The ejection fraction is estimated to be 60-65%. Grade II diastolic dysfunction. The left atrium is severely dilated. The right ventricle is mildly dilated. The right ventricular systolic function is normal. The right atrium is moderately dilated. There is very severe aortic stenosis. There is mild to moderate mitral regurgitation. There is mild tricuspid regurgitation. The right ventricular systolic pressure is estimated to be at least 59 mmHg based on an estimated right atrial pressure of 8 mm Hg. The ascending aorta is mildly enlarged, 4.0 cm. Compared to the prior study dated 02/07/2022, the aortic valve gradient has increased and valve area has decreased. Procedure: A two-dimensional transthoracic echocardiogram with color flow and Doppler was performed. The study quality was technically difficult. Comparison is made with the echocardiogram of 02/07/2022. A contrast injection of Definity was performed to improve assessment of LV function. The patient was in sinus rhythm with heart rates between 65-70 bpm during the exam. Left Ventricle: The left ventricle is normal in size. There is mild concentric left ventricular hypertrophy. The ejection fraction is estimated to be 60-65%. Diastolic parameters suggest a pseudonormalization pattern, consistent with probable elevated filling pressures. Right Ventricle: The right ventricle is mildly dilated. The right ventricular systolic function is normal. Atria: The left atrium is severely dilated. The right atrium is moderately dilated. Mitral Valve: The mitral valve leaflets are moderately calcified. There is moderate to severe mitral annular calcification. The mitral valve mean gradient is 3.5 mmHg. There is mild to moderate mitral regurgitation. Aortic Valve: The aortic valve is severely calcified. There is severely reduced leaflet mobility. The peak aortic velocity is 5.15 m/sec. The aortic valve mean gradient is 67 mmHg. The calculated aortic valve area is 0.53 cm2. There is very severe aortic stenosis. No aortic regurgitation is present. Tricuspid Valve: The tricuspid valve is not well visualized, but is grossly normal. There is mild tricuspid regurgitation. The right ventricular systolic pressure is estimated to be at least 59 mmHg based on an estimated right atrial pressure of 8 mm Hg. Pulmonic Valve: The pulmonic valve is not well visualized. There is no pulmonic valvular regurgitation. Great Vessels: The aortic root is normal size. The ascending aorta is mildly enlarged. The IVC is dilated (diameter is greater than 2.1 cm) yet it collapses greater than 50% with a sniff. This suggests a right atrial pressure of 8 mm Hg. Pericardium/ Pleura There is no pericardial effusion. There is no pleural effusion. MMode/2D Measurements & Calculations LVIDd: 5.7 cm LVOT diam: 2.2 cm LVIDs: 4.0 cm Ao root diam: 3.5 cm FS: 30.0 % asc Aorta Diam: 4.0 cm IVSd: 1.2 cm LVPWd: 1.3 cm LV corbin. diameter/BSA (cm/m^2): 2.4 LV sys. diameter/BSA (cm/m^2): 1.7 LA A2 area: 34.3 cm2 RA long axis: 6.3 cm LA A4 area: 39.0 cm2 RA area: 27.3 cm2 LA length (vol): 7.2 cm RA vol: 100.4 ml LA vol: 157.7 ml RA : 43.0 ml/m2 LA vol index: 67.6 ml/m2 IVC diam: 2.3 cm RVD1 (basal): 4.6 cm RVD2 (mid): 3.8 cm TAPSE: 2.5 cm Doppler Measurements & Calculations Ao V2 max: 515.3 cm/sec LVOT Max Johnathan: 70.4 cm/sec Ao V2 mean: 365.1 cm/sec LV V1 max P.0 mmHg Ao max P.0 mmHg LV V1 VTI: 18.4 cm Ao mean P.9 mmHg IRAIDA(I,D): 0.57 cm2 Ao V2 VTI: 122.9 cm IRAIDA(V,D): 0.52 cm2 sev ratio: 0.15 IRAIDA indexed to BSA (cm^2/m^2): 0.24 MV E max johnathan: 129.8 cm/sec TR max johnathan: 358.1 cm/sec MV A max johnathan: 82.3 cm/sec TR max P.3 mmHg MV E/A: 1.6 PA V2 max: 74.5 cm/sec Med Peak E' Johnathan: 4.5 cm/sec PA V2 mean: 57.0 cm/sec E/E' med: 28.6 PA mean P.4 mmHg Lat Peak E' Johnathan: 5.6 cm/sec PA pr(Accel): 49.9 mmHg E/E' lat: 23.2 E/e' average: 25.9 MV dec time: 0.25 sec MVA(VTI): 1.7 cm2 MV V2 mean: 85.1 cm/sec SV(LVOT): 70.0 ml MV mean P.5 mmHg MV V2 VTI: 41.8 cm MV P1/2t-pr_phl: 72.1 msec Reading Physician:10:10 AM
[2023-04-29] MEDS: ACETAMINOPHEN IV 1,000 MG/100 ML VIAL 400 MG IV (13:16)
--- NOTE | 2023-04-29 14:28 | P.HP_ITS ---
History of Present Illness History of Present Illness Date Patient Seen: 04/29/23 Chief complaint: SOB/Lung CA on NRB Narrative: Jaundice an 87-year-old male with a past medical history current lung cancer previous history of lung cancer congestive heart failure coronary artery disease chronic renal failure hypertension hyperlipidemia and obesity presents to the emergency department with shortness of breath. Patient is complaining of not feeling well for about 1 week. Says he began with cough and runny nose which progressed to increasing weakness and then difficulty with breathing. Patient states it got so bad that he ended up in the emergency department. He describes his cough is nonproductive. His shortness of breath is severe. He denies any chest pain. He is weak enough that he feels like he can fall but he has not. Patient has no complaints of headache or abdominal pain. Patient has had decreased oral intake fluids as well as food. Patient denies any recent blood in his bowel movements or urination. Urine stream has been weak. Patient knows he is at [facility]. He is unsure the day of the week but he knows the month. He does recognize me. [facility] Medical History (Updated 04/29/23 @ 14:35 by Jeffrey Jennings MD) Alcohol abuse History of lung cancer Moderate aortic stenosis by prior echocardiogram Acute respiratory failure with hypoxia COPD (chronic obstructive pulmonary disease) Vision disorder Gout (~2011) Chronic back pain (~1959) History of urinary incontinence Pancreatitis (~2005) Lung cancer (~2007) Surgical History Anesthesia History of lung surgery (~03/2007) Family History Father Heart disease Grandmother Age: 82 Ovarian cancer, unspecified laterality Mother Diabetes mellitus Sister No problems noted. Social History marital status: household members: significant other and friend(s) Smoking Status: Current every day smoker alcohol intake: former substance use type: does not use Meds Home Medications and Allergies Home Medications Medication Instructions Recorded Confirmed Type aspirin 81 mg chewable tablet 81 mg PO DAILY 12/17/17 08/21/22 History lidocaine 5 % topical patch 1 patch topical DAILY #15 ea 11/21/22 06/15/23 Rx (Lidoderm) diphenhydramine HCl 25 mg capsule 50 mg PO BEDTIME 05/05/22 08/21/22 History (Benadryl) acetaminophen 325 mg tablet 650 mg (2 x 325 mg) PO Q6H PRN 05/09/22 08/21/22 Rx Fever/Mild Pain (1-3) #30 tabs docusate sodium 100 mg capsule 100 mg PO BID #60 caps 05/09/22 08/21/22 Rx ferrous sulfate 325 mg (65 mg 325 mg PO DAILY #30 tabs 05/09/22 08/21/22 Rx iron) tablet multivitamin with folic acid 400 1 tab PO DAILY #30 tabs 05/09/22 08/21/22 Rx mcg tablet (Tab-A-Aranza) thiamine mononitrate (vit B1) 100 100 mg PO DAILY #30 tabs 05/09/22 08/21/22 Rx mg tablet Disabled Parking #1 ea 05/27/22 08/21/22 Rx fluticasone 250 mcg-salmeterol 50 1 inh inhalation BID #180 ea 05/27/22 08/21/22 Rx mcg/dose blistr powdr for inhalation metoprolol succinate 25 mg 25 mg PO BID #180 tabs 09/22/22 Rx tablet,extended release 24 hr albuterol sulfate 90 mcg/actuation 2 puff inhalation Q4H PRN 12/30/22 Rx aerosol inhaler (Ventolin HFA) Shortness Of Breath #8.5 grams atorvastatin 20 mg tablet 20 mg PO ONCE PM #90 tabs 01/26/23 Rx gabapentin 300 mg capsule 300 mg PO 3XD #90 caps 03/27/23 Rx hydrocodone 5 mg-acetaminophen 325 1 tab PO BID pain #60 tabs 04/06/23 Rx mg tablet Allergies Allergy/AdvReac Type Severity Reaction Status Date / Time No Known Drug Allergies Allergy Verified 04/29/23 10:35 Exam Vital Signs (past 8 hours): - 04/29/23 10:01 04/29/23 10:09 04/29/23 10:15 Temperature 99.6 F Pulse Rate 88 86 Respiratory Rate 23 Blood Pressure 132/94 H 143/98 H Pulse Oximetry 96 99 Oxygen Delivery Method Room Air Fraction of Inspired Oxygen 04/29/23 10:15 04/29/23 10:21 02/21/24 10:21 Temperature Pulse Rate 86 89 Respiratory Rate 24 25 H Blood Pressure 153/90 H Pulse Oximetry 99 98 Oxygen Delivery Method Fraction of Inspired Oxygen 04/29/23 10:26 04/29/23 10:26 04/29/23 10:30 Temperature Pulse Rate 90 Respiratory Rate 25 H Blood Pressure 183/95 H 186/86 H Pulse Oximetry 85 L Oxygen Delivery Method Fraction of Inspired Oxygen 04/29/23 10:30 04/29/23 10:33 04/29/23 10:35 Temperature Pulse Rate 90 Respiratory Rate 25 H Blood Pressure 186/86 H 164/76 H Pulse Oximetry 97 Oxygen Delivery Method Fraction of Inspired Oxygen 44 04/29/23 10:35 04/29/23 10:38 04/29/23 10:40 Temperature Pulse Rate 85 84 Respiratory Rate 29 H 22 Blood Pressure 165/84 H Pulse Oximetry 98 98 Oxygen Delivery Method BiPAP BiPAP Fraction of Inspired Oxygen 30 04/29/23 10:40 04/29/23 10:45 04/29/23 10:45 Temperature Pulse Rate 83 84 Respiratory Rate 28 H 28 H Blood Pressure 158/72 H Pulse Oximetry 97 92 Oxygen Delivery Method BiPAP BiPAP Fraction of Inspired Oxygen 04/29/23 10:50 04/29/23 10:50 04/29/23 10:56 Temperature Pulse Rate 86 84 Respiratory Rate 27 H 34 H Blood Pressure 152/91 H Pulse Oximetry 93 95 Oxygen Delivery Method BiPAP BiPAP Fraction of Inspired Oxygen 04/29/23 10:56 04/29/23 11:00 04/29/23 11:00 Temperature Pulse Rate 81 Respiratory Rate 22 Blood Pressure 139/81 112/66 Pulse Oximetry 95 Oxygen Delivery Method BiPAP Fraction of Inspired Oxygen 04/29/23 11:05 04/29/23 11:05 04/29/23 11:11 Temperature Pulse Rate 80 79 Respiratory Rate 27 H 26 H Blood Pressure 112/65 Pulse Oximetry 95 96 Oxygen Delivery Method BiPAP BiPAP Fraction of Inspired Oxygen 04/29/23 11:11 04/29/23 11:15 04/29/23 11:15 Temperature Pulse Rate 81 Respiratory Rate 29 H Blood Pressure 126/62 135/65 Pulse Oximetry 95 Oxygen Delivery Method BiPAP Fraction of Inspired Oxygen 04/29/23 11:30 04/29/23 11:42 04/29/23 11:42 Temperature Pulse Rate 89 93 H Respiratory Rate 45 H 24 Blood Pressure 163/88 H Pulse Oximetry 94 89 L Oxygen Delivery Method BiPAP Fraction of Inspired Oxygen 04/29/23 11:45 04/29/23 11:45 04/29/23 11:50 Temperature Pulse Rate 92 H Respiratory Rate 28 H Blood Pressure 163/83 H 174/82 H Pulse Oximetry 92 Oxygen Delivery Method BiPAP Fraction of Inspired Oxygen 04/29/23 11:50 04/29/23 11:55 04/29/23 11:55 Temperature Pulse Rate 92 H 90 Respiratory Rate 33 H 32 H Blood Pressure 136/81 Pulse Oximetry 92 93 Oxygen Delivery Method Fraction of Inspired Oxygen 04/29/23 12:00 04/29/23 12:00 04/29/23 12:05 Temperature Pulse Rate 90 Respiratory Rate 26 H Blood Pressure 142/58 H 130/66 Pulse Oximetry 94 Oxygen Delivery Method Fraction of Inspired Oxygen 04/29/23 12:05 04/29/23 12:16 04/29/23 12:16 Temperature Pulse Rate 88 88 Respiratory Rate 30 H 27 H Blood Pressure 135/62 Pulse Oximetry 95 96 Oxygen Delivery Method BiPAP BiPAP Fraction of Inspired Oxygen 04/29/23 12:21 04/29/23 12:21 04/29/23 12:26 Temperature Pulse Rate 86 Respiratory Rate 26 H Blood Pressure 112/55 L 103/65 Pulse Oximetry 97 Oxygen Delivery Method BiPAP Fraction of Inspired Oxygen 04/29/23 12:26 04/29/23 12:30 04/29/23 12:30 Temperature Pulse Rate 85 84 Respiratory Rate 27 H 26 H Blood Pressure 106/56 L Pulse Oximetry 96 96 Oxygen Delivery Method BiPAP BiPAP Fraction of Inspired Oxygen 04/29/23 12:35 04/29/23 12:35 04/29/23 12:41 Temperature Pulse Rate 84 Respiratory Rate 22 Blood Pressure 114/58 L 101/70 Pulse Oximetry 96 Oxygen Delivery Method BiPAP Fraction of Inspired Oxygen 04/29/23 12:41 04/29/23 12:45 04/29/23 12:45 Temperature Pulse Rate 84 85 Respiratory Rate 32 H 29 H Blood Pressure 108/56 L Pulse Oximetry 97 97 Oxygen Delivery Method BiPAP BiPAP Fraction of Inspired Oxygen 04/29/23 12:50 04/29/23 12:50 04/29/23 12:55 Temperature Pulse Rate 83 Respiratory Rate 24 Blood Pressure 116/57 L 113/60 Pulse Oximetry 97 Oxygen Delivery Method BiPAP Fraction of Inspired Oxygen 04/29/23 12:55 04/29/23 13:00 04/29/23 13:00 Temperature Pulse Rate 82 Respiratory Rate 25 H Blood Pressure 97/54 L Pulse Oximetry 97 Oxygen Delivery Method BiPAP Fraction of Inspired Oxygen 30 04/29/23 13:00 04/29/23 13:06 04/29/23 13:06 Temperature Pulse Rate 81 81 Respiratory Rate 25 H 22 Blood Pressure 106/53 L Pulse Oximetry 97 97 Oxygen Delivery Method BiPAP BiPAP Fraction of Inspired Oxygen 04/29/23 13:10 04/29/23 13:10 04/29/23 13:16 Temperature Pulse Rate 81 Respiratory Rate 24 Blood Pressure 107/58 L 121/69 Pulse Oximetry 97 Oxygen Delivery Method BiPAP Fraction of Inspired Oxygen 04/29/23 13:16 04/29/23 13:20 04/29/23 13:20 Temperature Pulse Rate 80 81 Respiratory Rate 26 H 31 H Blood Pressure 116/64 Pulse Oximetry 97 98 Oxygen Delivery Method BiPAP BiPAP Fraction of Inspired Oxygen 04/29/23 13:25 04/29/23 13:25 04/29/23 13:30 Temperature Pulse Rate 81 Respiratory Rate 26 H Blood Pressure 106/61 104/58 L Pulse Oximetry 97 Oxygen Delivery Method BiPAP Fraction of Inspired Oxygen 04/29/23 13:30 04/29/23 13:35 04/29/23 13:35 Temperature Pulse Rate 79 80 Respiratory Rate 18 32 H Blood Pressure 111/53 L Pulse Oximetry 97 97 Oxygen Delivery Method BiPAP BiPAP Fraction of Inspired Oxygen 04/29/23 13:40 04/29/23 13:40 Temperature Pulse Rate 80 Respiratory Rate 27 H Blood Pressure 103/65 Pulse Oximetry 97 Oxygen Delivery Method BiPAP Fraction of Inspired Oxygen Fraction of Inspired Oxygen 30 SaO2/FiO2 Ratio 326 Oxygen Delivery Method BiPAP Narrative Exam Narrative: Obese frail-appearing male in significant shortness of breath with BiPAP on. HEENT pupils equal round and reactive BiPAP mask on. Or mucosa is dry neck is supple Cardio: S1-S2 heart sounds are distant. Hard to distinguish heart murmur or irregularity. Respiratory: Patient has increased work of breathing heart patient not moving much air on lung exam Abdomen: Soft no tenderness no appreciable organomegaly Extremities: warm dry perfusing no significant lower extremity edema Objective Labs 04/29/23 10:10 04/29/23 10:10 Labs: Laboratory Results - last 24 hr 04/29/23 04/29/23 04/29/23 10:04 10:10 11:43 WBC 8.7 RBC 3.79 L Hgb 11.4 L Hct 35.4 L MCV 93.3 MCH 30.1 MCHC 32.2 RDW 14.6 Plt Count 157 Neut % (Auto) 81.5 H Lymph % (Auto) 6.0 L Lea % (Auto) 12.0 Eos % (Auto) 0.2 L Baso % (Auto) 0.3 Neut # (Auto) 7100 H Lymph # (Auto) 500 L Lea # (Auto) 1100 H Eos # (Auto) 0 Baso # (Auto) 0 PT 11.9 INR 1.0 APTT 37 H Sodium 141 Potassium 5.4 H Chloride 103 Carbon Dioxide 30 BUN 37 H Creatinine 1.23 Estimated GFR 58 L BUN/Creatinine Ratio 30.1 H Glucose 125 H Lactate 1.2 Calcium 9.3 Total Bilirubin 0.7 AST 57 ALT 44 Alkaline Phosphatase 107 Total Creatine Kinase 72 Troponin I < 0.012 NT-Pro-B Natriuret Pep 5910 H Total Protein 8.2 Albumin 4.2 Globulin 4.0 Albumin/Globulin Ratio 1.1 Procalcitonin 0.13 Urine Color Yellow Urine Appearance Clear Urine pH 5.0 Ur Specific Harvey 1.025 Urine Protein Trace H Urine Glucose (UA) Negative Urine Ketones Negative Urine Occult Blood Trace-intact Urine Nitrate Negative Urine Bilirubin Negative Urine Urobilinogen 0.2 Ur Leukocyte Esterase Negative Urine RBC 0-1/hpf Urine WBC None seen Ur Squamous Epith Cells None seen Urine Bacteria None seen Ur Culture Indicated? Cult not indicated Vol Urine Centrifuged 10ml (spun) Chlamy pneumoniae PCR Not detected Adenovirus (PCR) Not detected B.parapertussis DNA PCR Not detected Coronavirus OC43 (PCR) Not detected Coronavirus HKU1 (PCR) Not detected Coronavirus 229E (PCR) Not detected SARS-CoV-2 (PCR) Not detected Coronavirus NL63 (PCR) Not detected Human Metapneumovir PCR Not detected Influ A (H1N1 Seas) PCR Detected H Influenza Type B (PCR) Not detected M. pneumoniae (PCR) Not detected Parainfluenza 1 (PCR) Not detected Parainfluenza 2 (PCR) Not detected Parainfluenza 3 (PCR) Not detected Parainfluenza 4 (PCR) Not detected RSV (PCR) Not detected Entero/Rhino (PCR) Not detected Assessment & Plan Assessment and plan (1) Influenza A: Status: Acute (2) Pneumonia: Qualifiers: Pneumonia type: due to unspecified organism Laterality: bilateral Lung location: lower lobe of lung Qualified Code(s): J18.9 - Pneumonia, unspecified organism Status: Acute (3) CHF (congestive heart failure): Qualifiers: Heart failure type: diastolic Heart failure chronicity: acute Qualified Code(s): I50.31 - Acute diastolic (congestive) heart failure Status: Acute (4) Respiratory failure: Qualifiers: Chronicity: acute Respiratory failure complication: hypoxia Qualified Code(s): J96.01 - Acute respiratory failure with hypoxia Status: Acute Plan Acute hypoxic respiratory failure-patient with respiratory failure multifactorial. Patient with the influenza a bilateral pneumonia elevated BNP with signs of heart failure. Patient at home is not a CO2 retainer and not significantly hypoxic and does not require oxygen. Patient on BiPAP to support his respiratory status he is received nebulizers steroids and antibiotics in the emergency department to cover infection and COPD exacerbation. He has also been diuresed with Lasix. Patient has had gradual improvement of his respiratory status. But still requiring BiPAP. Patient's respiratory support will be continue with BiPAP. Will maintain O2 saturations between 90 and 94%. As he has not known to have CO2 retention. He will be continue with nebulizers treatment of his underlying possible bacterial infection as well of his heart failure. He will be admitted to the ICU. 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 Acute diastolic congestive heart failure. Patient has signs of heart failure with the bilateral infiltrates on his lungs. He has had good diuresis with Lasix. He has had hospital admissions before for heart failure. I think this is certainly contributing to his hospital status at this point. Will continue with IV Lasix 40 mg q.8 hours. Monitor his urinary output and electrolytes. He has currently not in kidney failure which he has been before which is good news. Dewitt catheter was placed to monitor his urinary output. Will work with daily weights and continue to diurese as appropriately. His last echocardiogram was done a year so ago so we will go ahead and repeat that. Evaluate his systolic heart function. Pneumonia bilateral. Patient with the viral and probable bacterial pneumonia as well. Patient is positive for influenza A. His infiltrates on his chest x-ray. Can not exclude underlying pneumonia. I do not think it is aspiration at this time. Will go ahead and treat for community-acquired pneumonia patient has not been hospitalized recently or in a [place] [facility] facility. He will be given ceftriaxone and Zithromax. Influenza A. Patient test positive to for influenza A contact precautions will be instituted. Alcohol misuse patient with alcohol misuse disorder. Previous hospitalizations patient has gone through alcohol withdrawal. Will institute CIWA protocol and precautions. He will have lorazepam scheduled as needed. I will go ahead and place him on a very low dose of 1 mg p.o. lorazepam a day to hopefully prevent withdrawal symptoms. 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 Patient has a longstanding smoking history. He has not known to be a CO2 retainer needing home oxygen therapy. I have not routinely admitted him for COPD exacerbations. Lung cancer. Patient with a history of lung cancer with previous lung surgery for removal. Patient now has a recurrence of a new primary lung cancer. This is being monitored by Oncology recent PET scan confirms this. Patient declines wanting chemotherapy. In a very poor surgical candidate. Have discussed with oncology multiple times about options for treatment. Coronary artery disease. No signs of acute decompensation. No signs of chest pain. Hypertension. Patient's blood pressure is mildly elevated. He will be placed back on his antihypertensive medication Hyperlipidemia patient will be placed on a statin Spinal stenosis with chronic low back pain. Patient will be restarted on his gabapentin. Be given Tylenol and or hydrocodone as needed for his pain. Code status patient is DNR. Prophylaxis with SCDs and Lovenox
--- NOTE | 2023-04-29 16:27 | PC.NURSE ---
Addendum entered by Abbie Tran R.N. 04/29/23 18:27: Patient off bipap for dinner and placed on 4L NC (pt states he wears 2-4L at home). Tolerated well but with increase in shortness of breath/work of breathing after dinner, placed back on bipap at previous settings (14/5 and 30% FIO2). Original Note: Day Shift Note Patient arrived to room 230 from ER via stretcher at approx 1530 on 15L NRB. Moved to bed via slider board. Alert and oriented x3, very conversant. Bipap replaced by RT, 14/5, 30% FIo2. Tolerating well, SpO2 95%. Denies pain. Reports breathing as improved. HR in the 70s, SR with PACs. Oriented to room and to call light/bed/tv controls. Bed alarm on. Call light within reach. Clothing at bedside. Reviewed home meds with pt and updated accordingly. Dr. Razo notified of patient's arrival.
--- NOTE | 2023-04-29 16:58 | PM.CN.EICU ---
History of Present Illness Consult details IF CAMERA ACTIVATED, patient seen via real-time interactive audiovisual communication: Camera activated Chief complaint: SOB/Lung CA on NRB Consent obtained for tele-watch hairspring assembler care: Yes Patient Location: ICU Provider location (State): [place] Other participants/roles: Bedside RN Narrative: Elissa is a 87 year old male with history of lung cancer, CHF, and CAD who presents with worsening shortness of breath. Associated with generalized weakness and nonproductive cough. On presentation he was found to be hypoxemia which he was placed on BiPAP. Tested positive for influenza A. Started on CAP coverage and diuretic. Tele watch hairspring assembler consulted for respiratory failure management. At the time of my assessment patient is sleeping comfortably on BiPAP 12/5 FiO2 30%. [facility] Medical History (Updated 04/29/23 @ 14:35 by Jeffrey Jennings MD) Alcohol abuse History of lung cancer Moderate aortic stenosis by prior echocardiogram Acute respiratory failure with hypoxia COPD (chronic obstructive pulmonary disease) Vision disorder Gout (~2011) Chronic back pain (~1959) History of urinary incontinence Pancreatitis (~2005) Lung cancer (~2007) Surgical History Anesthesia History of lung surgery (~03/2007) Family History Father Heart disease Grandmother Age: 82 Ovarian cancer, unspecified laterality Mother Diabetes mellitus Sister No problems noted. Social History marital status: household members: significant other and friend(s) Smoking Status: Current every day smoker alcohol intake: former substance use type: does not use Current Medications Current Medications Medications: Home Medications aspirin 81 mg chewable tablet 81 mg PO DAILY 12/17/17 [History Confirmed 04/29/23] diphenhydramine HCl 25 mg capsule (Benadryl) 50 mg PO BEDTIME 05/05/22 [History Confirmed 04/29/23] acetaminophen 325 mg tablet 650 mg (2 x 325 mg) PO Q6H PRN Fever/Mild Pain (1-3) #30 tabs 05/09/22 [Rx Confirmed 04/29/23] multivitamin with folic acid 400 mcg tablet (Tab-A-Aranza) 1 tab PO DAILY #30 tabs 05/09/22 [Rx Confirmed 04/29/23] Disabled Parking #1 ea 05/27/22 [Rx Confirmed 04/29/23] fluticasone 250 mcg-salmeterol 50 mcg/dose blistr powdr for inhalation 1 inh inhalation BID #180 ea 05/27/22 [Rx Confirmed 04/29/23] metoprolol succinate 25 mg tablet,extended release 24 hr 25 mg PO BID #180 tabs 09/22/22 [Rx Confirmed 04/29/23] albuterol sulfate 90 mcg/actuation aerosol inhaler (Ventolin HFA) 2 puff inhalation Q4H PRN Shortness Of Breath #8.5 grams 12/30/22 [Rx Confirmed 04/29/23] atorvastatin 20 mg tablet 20 mg PO ONCE PM #90 tabs 01/26/23 [Rx Confirmed 04/29/23] gabapentin 300 mg capsule 300 mg PO 3XD #90 caps 03/27/23 [Rx Confirmed 04/29/23] hydrocodone 5 mg-acetaminophen 325 mg tablet 1 tab PO BID pain #60 tabs 04/06/23 [Rx Confirmed 04/29/23] Visit Medications (administered) Generic Name Dose Route Start Last Admin Trade Name Freq PRN Reason Stop Dose Admin Furosemide 40 mg 04/29/23 13:00 04/29/23 16:40 Furosemide 40 Mg/4 Ml Vial IV Not Given Q8H MARTIN Exam Vital Signs (past 8 hours): - 04/29/23 10:01 04/29/23 10:09 04/29/23 10:15 Temperature 99.6 F Pulse Rate 88 86 Respiratory Rate 23 Blood Pressure 132/94 H 143/98 H Pulse Oximetry 96 99 Oxygen Delivery Method Room Air Fraction of Inspired Oxygen 04/29/23 10:15 04/29/23 10:21 04/29/23 10:21 Temperature Pulse Rate 86 89 Respiratory Rate 24 25 H Blood Pressure 153/90 H Pulse Oximetry 99 98 Oxygen Delivery Method Fraction of Inspired Oxygen 04/29/23 10:26 04/29/23 10:26 04/29/23 10:30 Temperature Pulse Rate 90 Respiratory Rate 25 H Blood Pressure 183/95 H 186/86 H Pulse Oximetry 85 L Oxygen Delivery Method Fraction of Inspired Oxygen 04/29/23 10:30 04/29/23 10:33 04/29/23 10:35 Temperature Pulse Rate 90 Respiratory Rate 25 H Blood Pressure 186/86 H 164/76 H Pulse Oximetry 97 Oxygen Delivery Method Fraction of Inspired Oxygen 44 04/29/23 10:35 04/29/23 10:38 04/29/23 10:40 Temperature Pulse Rate 85 84 Respiratory Rate 29 H 22 Blood Pressure 165/84 H Pulse Oximetry 98 98 Oxygen Delivery Method BiPAP BiPAP Fraction of Inspired Oxygen 30 04/29/23 10:40 04/29/23 10:45 04/29/23 10:45 Temperature Pulse Rate 83 84 Respiratory Rate 28 H 28 H Blood Pressure 158/72 H Pulse Oximetry 97 92 Oxygen Delivery Method BiPAP BiPAP Fraction of Inspired Oxygen 04/29/23 10:50 04/29/23 10:50 04/29/23 10:56 Temperature Pulse Rate 86 84 Respiratory Rate 27 H 34 H Blood Pressure 152/91 H Pulse Oximetry 93 95 Oxygen Delivery Method BiPAP BiPAP Fraction of Inspired Oxygen 04/29/23 10:56 04/29/23 11:00 04/29/23 11:00 Temperature Pulse Rate 81 Respiratory Rate 22 Blood Pressure 139/81 112/66 Pulse Oximetry 95 Oxygen Delivery Method BiPAP Fraction of Inspired Oxygen 04/29/23 11:05 04/29/23 11:05 04/29/23 11:11 Temperature Pulse Rate 80 79 Respiratory Rate 27 H 26 H Blood Pressure 112/65 Pulse Oximetry 95 96 Oxygen Delivery Method BiPAP BiPAP Fraction of Inspired Oxygen 04/29/23 11:11 04/29/23 11:15 04/29/23 11:15 Temperature Pulse Rate 81 Respiratory Rate 29 H Blood Pressure 126/62 135/65 Pulse Oximetry 95 Oxygen Delivery Method BiPAP Fraction of Inspired Oxygen 04/29/23 11:30 04/29/23 11:42 04/29/23 11:42 Temperature Pulse Rate 89 93 H Respiratory Rate 45 H 24 Blood Pressure 163/88 H Pulse Oximetry 94 89 L Oxygen Delivery Method BiPAP Fraction of Inspired Oxygen 04/29/23 11:45 04/29/23 11:45 04/29/23 11:50 Temperature Pulse Rate 92 H Respiratory Rate 28 H Blood Pressure 163/83 H 174/82 H Pulse Oximetry 92 Oxygen Delivery Method BiPAP Fraction of Inspired Oxygen 04/29/23 11:50 04/29/23 11:55 04/29/23 11:55 Temperature Pulse Rate 92 H 90 Respiratory Rate 33 H 32 H Blood Pressure 136/81 Pulse Oximetry 92 93 Oxygen Delivery Method Fraction of Inspired Oxygen 04/29/23 12:00 04/29/23 12:00 04/29/23 12:05 Temperature Pulse Rate 90 Respiratory Rate 26 H Blood Pressure 142/58 H 130/66 Pulse Oximetry 94 Oxygen Delivery Method Fraction of Inspired Oxygen 04/29/23 12:05 04/29/23 12:16 04/29/23 12:16 Temperature Pulse Rate 88 88 Respiratory Rate 30 H 27 H Blood Pressure 135/62 Pulse Oximetry 95 96 Oxygen Delivery Method BiPAP BiPAP Fraction of Inspired Oxygen 04/29/23 12:21 04/29/23 12:21 04/29/23 12:26 Temperature Pulse Rate 86 Respiratory Rate 26 H Blood Pressure 112/55 L 103/65 Pulse Oximetry 97 Oxygen Delivery Method BiPAP Fraction of Inspired Oxygen 04/29/23 12:26 04/29/23 12:30 04/29/23 12:30 Temperature Pulse Rate 85 84 Respiratory Rate 27 H 26 H Blood Pressure 106/56 L Pulse Oximetry 96 96 Oxygen Delivery Method BiPAP BiPAP Fraction of Inspired Oxygen 04/29/23 12:35 04/29/23 12:35 04/29/23 12:41 Temperature Pulse Rate 84 Respiratory Rate 22 Blood Pressure 114/58 L 101/70 Pulse Oximetry 96 Oxygen Delivery Method BiPAP Fraction of Inspired Oxygen 04/29/23 12:41 04/29/23 12:45 04/29/23 12:45 Temperature Pulse Rate 84 85 Respiratory Rate 32 H 29 H Blood Pressure 108/56 L Pulse Oximetry 97 97 Oxygen Delivery Method BiPAP BiPAP Fraction of Inspired Oxygen 04/29/23 12:50 04/29/23 12:50 04/29/23 12:55 Temperature Pulse Rate 83 Respiratory Rate 24 Blood Pressure 116/57 L 113/60 Pulse Oximetry 97 Oxygen Delivery Method BiPAP Fraction of Inspired Oxygen 04/29/23 12:55 04/29/23 13:00 04/29/23 13:00 Temperature Pulse Rate 82 Respiratory Rate 25 H Blood Pressure 97/54 L Pulse Oximetry 97 Oxygen Delivery Method BiPAP Fraction of Inspired Oxygen 30 04/29/23 13:00 04/29/23 13:06 04/29/23 13:06 Temperature Pulse Rate 81 81 Respiratory Rate 25 H 22 Blood Pressure 106/53 L Pulse Oximetry 97 97 Oxygen Delivery Method BiPAP BiPAP Fraction of Inspired Oxygen 04/29/23 13:10 04/29/23 13:10 04/29/23 13:16 Temperature Pulse Rate 81 Respiratory Rate 24 Blood Pressure 107/58 L 121/69 Pulse Oximetry 97 Oxygen Delivery Method BiPAP Fraction of Inspired Oxygen 04/29/23 13:16 04/29/23 13:20 04/29/23 13:20 Temperature Pulse Rate 80 81 Respiratory Rate 26 H 31 H Blood Pressure 116/64 Pulse Oximetry 97 98 Oxygen Delivery Method BiPAP BiPAP Fraction of Inspired Oxygen 04/29/23 13:25 04/29/23 13:25 04/29/23 13:30 Temperature Pulse Rate 81 Respiratory Rate 26 H Blood Pressure 106/61 104/58 L Pulse Oximetry 97 Oxygen Delivery Method BiPAP Fraction of Inspired Oxygen 04/29/23 13:30 04/29/23 13:35 04/29/23 13:35 Temperature Pulse Rate 79 80 Respiratory Rate 18 32 H Blood Pressure 111/53 L Pulse Oximetry 97 97 Oxygen Delivery Method BiPAP BiPAP Fraction of Inspired Oxygen 04/29/23 13:40 04/29/23 13:40 04/29/23 13:45 Temperature Pulse Rate 80 80 Respiratory Rate 27 H 28 H Blood Pressure 103/65 Pulse Oximetry 97 97 Oxygen Delivery Method BiPAP Fraction of Inspired Oxygen 04/29/23 13:45 04/29/23 13:50 04/29/23 13:50 Temperature Pulse Rate 79 Respiratory Rate 35 H Blood Pressure 126/81 136/54 L Pulse Oximetry 97 Oxygen Delivery Method Fraction of Inspired Oxygen 04/29/23 13:55 04/29/23 13:55 04/29/23 14:00 Temperature Pulse Rate 80 Respiratory Rate 23 Blood Pressure 102/66 113/62 Pulse Oximetry 97 Oxygen Delivery Method Fraction of Inspired Oxygen 04/29/23 14:00 04/29/23 14:05 04/29/23 14:05 Temperature Pulse Rate 79 79 Respiratory Rate 26 H 28 H Blood Pressure 102/59 L Pulse Oximetry 97 97 Oxygen Delivery Method Fraction of Inspired Oxygen 04/29/23 14:10 04/29/23 14:10 04/29/23 14:15 Temperature Pulse Rate 78 76 Respiratory Rate 21 26 H Blood Pressure 96/54 L Pulse Oximetry 89 L 87 L Oxygen Delivery Method Fraction of Inspired Oxygen 04/29/23 14:15 04/29/23 14:20 04/29/23 14:20 Temperature Pulse Rate 77 Respiratory Rate 24 Blood Pressure 118/65 122/58 L Pulse Oximetry 96 Oxygen Delivery Method Fraction of Inspired Oxygen 04/29/23 14:26 04/29/23 14:26 04/29/23 14:30 Temperature Pulse Rate 75 76 Respiratory Rate 19 22 Blood Pressure 104/73 Pulse Oximetry 95 97 Oxygen Delivery Method Fraction of Inspired Oxygen 04/29/23 14:31 04/29/23 14:31 04/29/23 14:35 Temperature Pulse Rate 77 77 Respiratory Rate 23 24 Blood Pressure 120/60 Pulse Oximetry 98 97 Oxygen Delivery Method Fraction of Inspired Oxygen 04/29/23 14:35 04/29/23 14:41 04/29/23 14:41 Temperature Pulse Rate 77 Respiratory Rate 23 Blood Pressure 120/67 124/58 L Pulse Oximetry 96 Oxygen Delivery Method Fraction of Inspired Oxygen 04/29/23 14:46 04/29/23 14:46 04/29/23 14:50 Temperature Pulse Rate 77 Respiratory Rate 21 Blood Pressure 128/64 135/61 Pulse Oximetry 97 Oxygen Delivery Method Fraction of Inspired Oxygen 04/29/23 14:50 04/29/23 14:55 04/29/23 14:55 Temperature Pulse Rate 78 79 Respiratory Rate 27 H 24 Blood Pressure 143/67 H Pulse Oximetry 92 98 Oxygen Delivery Method Fraction of Inspired Oxygen 04/29/23 15:00 04/29/23 15:00 04/29/23 15:06 Temperature Pulse Rate 78 78 Respiratory Rate 20 26 H Blood Pressure 138/63 Pulse Oximetry 96 96 Oxygen Delivery Method Fraction of Inspired Oxygen 04/29/23 15:06 04/29/23 15:10 04/29/23 15:10 Temperature Pulse Rate 77 Respiratory Rate 19 Blood Pressure 111/59 L 124/60 Pulse Oximetry 99 Oxygen Delivery Method Fraction of Inspired Oxygen 04/29/23 15:43 04/29/23 15:44 Temperature Pulse Rate 80 Respiratory Rate 32 H Blood Pressure 153/69 H Pulse Oximetry 96 Oxygen Delivery Method BiPAP Fraction of Inspired Oxygen 30 30 Fraction of Inspired Oxygen 30 SaO2/FiO2 Ratio 320 Oxygen Delivery Method BiPAP Objective Labs 04/29/23 10:10 04/29/23 10:10 Labs: Laboratory Results - last 24 hr 0204/29/23 04/29/23 10:04 10:10 11:43 WBC 8.7 RBC 3.79 L Hgb 11.4 L Hct 35.4 L MCV 93.3 MCH 30.1 MCHC 32.2 RDW 14.6 Plt Count 157 Neut % (Auto) 81.5 H Lymph % (Auto) 6.0 L [place] % (Auto) 12.0 Eos % (Auto) 0.2 L Baso % (Auto) 0.3 Neut # (Auto) 7100 H Lymph # (Auto) 500 L [place] # (Auto) 1100 H Eos # (Auto) 0 Baso # (Auto) 0 PT 11.9 INR 1.0 APTT 37 H Sodium 141 Potassium 5.4 H Chloride 103 Carbon Dioxide 30 BUN 37 H Creatinine 1.23 Estimated GFR 58 L BUN/Creatinine Ratio 30.1 H Glucose 125 H Lactate 1.2 Calcium 9.3 Total Bilirubin 0.7 AST 57 ALT 44 Alkaline Phosphatase 107 Total Creatine Kinase 72 Troponin I < 0.012 NT-Pro-B Natriuret Pep 5910 H Total Protein 8.2 Albumin 4.2 Globulin 4.0 Albumin/Globulin Ratio 1.1 Procalcitonin 0.13 Urine Color Yellow Urine Appearance Clear Urine pH 5.0 Ur Specific [place] 1.025 Urine Protein Trace H Urine Glucose (UA) Negative Urine Ketones Negative Urine Occult Blood Trace-intact Urine Nitrate Negative Urine Bilirubin Negative Urine Urobilinogen 0.2 Ur Leukocyte Esterase Negative Urine RBC 0-1/hpf Urine WBC None seen Ur Squamous Epith Cells None seen Urine Bacteria None seen Ur Culture Indicated? Cult not indicated Vol Urine Centrifuged 10ml (spun) Chlamy pneumoniae PCR Not detected Adenovirus (PCR) Not detected B.parapertussis DNA PCR Not detected Coronavirus OC43 (PCR) Not detected Coronavirus HKU1 (PCR) Not detected Coronavirus 229E (PCR) Not detected SARS-CoV-2 (PCR) Not detected Coronavirus NL63 (PCR) Not detected Human Metapneumovir PCR Not detected Influ A (H1N1 Se[place]) PCR Detected H Influenza Type B (PCR) Not detected M. pneumoniae (PCR) Not detected Parainfluenza 1 (PCR) Not detected Parainfluenza 2 (PCR) Not detected Parainfluenza 3 (PCR) Not detected Parainfluenza 4 (PCR) Not detected RSV (PCR) Not detected Entero/Rhino (PCR) Not detected Assessment & Plan Assessment & Plan narrative: NEURO: # Decondition -- PT/OT and OOB as tolerated RESP: # Acute hypoxemia respiratory failure -- Secondary to influenza w/ superimposed bacterial PNA -- On BIPAP -- On CAP coverage -- Added tamiflu -- Start diuresis to seek net negative fluid balance -- HOB elevation -- Aspiration precaution -- GOal SpO2 > 88% CVS: # Acute CHF exacerbation -- Start diuresis to seek net negative fluid balance -- STrict I/O -- Low Na diet : # JAYCEE -- Secondayr to renal venosu congestion -- Cont diuresis as above -- Avoid nephrotoxin agents -- Trend BMP -- Monitor UOP ID: # PNA -- Secondary to influenza w/ superimposed bacterial -- on CAP coverage -- On influenza -- Follow up cx ENDO: -- GOal BS <180 D/w bedside RN.
[2023-04-29] MEDS: ENOXAPARIN 40 MG/0.4 ML SYRINGE SUBCUT (17:20)
[2023-04-29] MEDS: GABAPENTIN 300 MG CAPSULE PO ×2 (17:20→20:33)
[2023-04-29 17:46] LABS: MRSA (Nasal) PCR Not Detected (Not Detect)
[2023-04-29] MEDS: ALBUTEROL 2.5 MG/3 ML NEB (ADULT) INH ×2 (20:03→23:34)
[2023-04-29] MEDS: BUDESONIDE 0.5 MG/2 ML NEB INH (20:03)
[2023-04-29] MEDS: ATORVASTATIN 20 MG TABLET PO (20:33)
[2023-04-29] MEDS: LORazepam 1 MG TABLET PO (20:33)
[2023-04-29] MEDS: METOPROLOL ER 25 MG TABLET PO (20:33)
[2023-04-29] MEDS: OSELTAMIVIR 75 MG CAPSULE PO (20:33)
[2023-04-30] VITALS (71 sets, daily range): BP systolic 98–142; BP diastolic 51–81; PULSE 63–118; RESP 10–50; TEMP 30–37.2; O2SAT 69–99
--- NOTE | 2023-04-30 05:00 | DI.RAD.S_ITS ---
PROCEDURE: XR CHEST 1V INDICATIONS: chf TECHNIQUE: One view of the chest was acquired. COMPARISON: [facility], CR, XR CHEST 1V, 04/29/2023, 10:10. FINDINGS: Surgical changes and devices: Mediastinal surgical clips. Lungs and pleura: Increased interstitial edema and persistent hazy opacities predominantly bilateral lobes. No pneumothorax. Small left pleural effusion. Mediastinum: Mediastinal contours appear normal. Heart size is normal. Aortic arch is calcified indicating atherosclerosis. Bones and chest wall: No suspicious bony lesions. Overlying soft tissues appear unremarkable. IMPRESSION: Compared to prior radiograph on 04/29/2023, no significant interval change. Persistent small left pleural effusion and left greater than right bilateral opacities. Approved by: Keisha Rich M.D. on 04/30/2023 at 9:45
[2023-04-30 05:25] LABS: Add Manual Diff / Slide Review NO; Basophils Absolute Auto 0 /uL (0-100); Basophils Percent Auto 0.1 % (0-2); Eosinophils Absolute Auto 0 /uL (0-450); Hematocrit 30.9 % (41-53); Hemoglobin 10.2 g/dL (13.5-17.5); Lymphocytes Absolute Auto 300 /uL (1100-4500); Lymphocytes Percent Auto 3.9 % (25-40); Mean Corpuscular HGB Conc 33.1 % (30-36); Mean Corpuscular Hemoglobin 30.4 PG (26-34); Mean Corpuscular Volume 91.7 fL (80-100); Monocytes Absolute Auto 400 /uL (0-900); Neutrophils Absolute Auto 8200 /uL (1500-7000); Platelet Count 144 X10^3/uL (150-400); Red Blood Cell Count 3.37 X10^6/uL (4.5-5.9); Red Cell Distribution Width 14.5 % (11.6-14.8); White Blood Cell Count 8.9 X10^3/uL (4.5-11.0)
[2023-04-30] MEDS: FUROSEMIDE 40 MG/4 ML VIAL IV ×2 (05:31→20:31)
[2023-04-30 05:35] LABS: Alanine Aminotransferase 35 IU/L (<50); Albumin 3.9 g/dL (3.5-5.0); Albumin Globulin Ratio 1.1 (1.0-2.8); Alkaline Phosphatase 84 U/L (38-126); Aspartate Aminotransferase 37 IU/L (17-59); BUN Creatinine Ratio 34.1 (6-22); Bilirubin Total 0.6 mg/dL (0.2-1.3); Blood Urea Nitrogen 45 mg/dL (9-20); Calcium 9.2 mg/dL (8.4-10.2); Carbon Dioxide 28 mmol/L (22-32); Chloride 101 mmol/L (98-107); Estimated Glomerular Filt Rate 53 mL/min (>60); Globulin 3.7 g/dL (1.7-4.1); Glucose 153 mg/dL (80-110); HEMOLYSIS < 15 (0-50); Potassium 4.8 mmol/L (3.4-5.1); Sodium 139 mmol/L (137-145); Total Protein 7.6 g/dL (6.3-8.2)
[2023-04-30 05:38] LABS: INR 1.1 (0.9-1.3); Prothrombin Time 12.9 SECONDS (9.4-12.5)
--- NOTE | 2023-04-30 07:22 | PM.PN.1 ---
Subjective Subjective Date Patient Seen: 04/30/23 Time Patient Seen: 08:58 Interval history: Patient seen and evaluated this morning. Discussed care with ICU nurse. Appreciate tele-ICU consult. Patient is taken off BiPAP. On 4 L of nasal cannula oxygen. Still quite short of breath. He is eating food and hydrating without signs of clinical aspiration. Dewitt catheter in place. Has had good urine output since midnight. Patient is alert and aware arousable. Toxin short sentences because of dyspnea. He recognizes me knows he is at [facility] unsure of the date but knows month. Patient has a little bit of tremor which is always present. Patient is on oxygen at home at night. He says he does not take it during the day reconfirm that with him today previously note said he has not on oxygen at home at all. Exam Vital Signs (past 8 hours): - 04/30/23 00:00 04/30/23 00:00 04/30/23 00:00 Temperature 97.9 F Pulse Rate 70 72 Respiratory Rate 22 29 H Blood Pressure 98/61 98/61 Pulse Oximetry 69 L 95 Oxygen Delivery Method Fraction of Inspired Oxygen 30 04/30/23 00:00 04/30/23 00:14 04/30/23 00:30 Temperature Pulse Rate 70 Respiratory Rate 20 Blood Pressure Pulse Oximetry 94 Oxygen Delivery Method BiPAP Fraction of Inspired Oxygen 30 04/30/23 01:00 04/30/23 01:00 04/30/23 01:00 Temperature Pulse Rate 73 74 Respiratory Rate 20 19 Blood Pressure 102/57 L 102/57 L Pulse Oximetry 92 91 Oxygen Delivery Method Fraction of Inspired Oxygen 30 04/30/23 01:30 04/30/23 01:53 04/30/23 02:00 Temperature Pulse Rate 73 Respiratory Rate 27 H Blood Pressure 98/51 L Pulse Oximetry 91 92 Oxygen Delivery Method Fraction of Inspired Oxygen 35 04/30/23 02:00 04/30/23 03:00 04/30/23 03:00 Temperature Pulse Rate 72 69 Respiratory Rate 19 19 Blood Pressure 105/55 L 105/55 L Pulse Oximetry 96 96 Oxygen Delivery Method Fraction of Inspired Oxygen 25 04/30/23 03:00 04/30/23 03:30 04/30/23 04:00 Temperature Pulse Rate 68 68 76 Respiratory Rate 19 19 50 H Blood Pressure Pulse Oximetry 95 93 92 Oxygen Delivery Method Fraction of Inspired Oxygen 04/30/23 04:00 04/30/23 04:13 04/30/23 05:00 Temperature 97.6 F Pulse Rate 72 Respiratory Rate 20 Blood Pressure 119/59 L Pulse Oximetry 96 Oxygen Delivery Method BiPAP Fraction of Inspired Oxygen 30 04/30/23 06:03 Temperature Pulse Rate 65 Respiratory Rate 19 Blood Pressure 118/58 L Pulse Oximetry 94 Oxygen Delivery Method Fraction of Inspired Oxygen 25 Fraction of Inspired Oxygen 25 SaO2/FiO2 Ratio 320 Oxygen Delivery Method BiPAP Narrative Exam Narrative: Gen.: Alert mild tremors visibly short of breath HEENT: Pupils equal round and reactive or mucosa is moist neck is supple Cardio: S1-S2 regular rate and rhythm systolic murmur present Respiratory: Poor lung sounds throughout all lung morrow. Mild airway movement upper lungs. Abdomen: Soft nontender Extremities: No significant lower extremity edema. Neurologic: Grossly intact. Objective Labs 04/30/23 05:15 04/30/23 05:15 Labs: Laboratory Results - last 24 hr 04/29/23 04/29/23 04/29/23 10:04 10:10 11:43 WBC 8.7 RBC 3.79 L Hgb 11.4 L Hct 35.4 L MCV 93.3 MCH 30.1 MCHC 32.2 RDW 14.6 Plt Count 157 Neut % (Auto) 81.5 H Lymph % (Auto) 6.0 L Antelope % (Auto) 12.0 Eos % (Auto) 0.2 L Baso % (Auto) 0.3 Neut # (Auto) 7100 H Lymph # (Auto) 500 L Antelope # (Auto) 1100 H Eos # (Auto) 0 Baso # (Auto) 0 PT 11.9 INR 1.0 APTT 37 H Sodium 141 Potassium 5.4 H Chloride 103 Carbon Dioxide 30 BUN 37 H Creatinine 1.23 Estimated GFR 58 L BUN/Creatinine Ratio 30.1 H Glucose 125 H Lactate 1.2 Calcium 9.3 Total Bilirubin 0.7 AST 57 ALT 44 Alkaline Phosphatase 107 Total Creatine Kinase 72 Troponin I < 0.012 NT-Pro-B Natriuret Pep 5910 H Total Protein 8.2 Albumin 4.2 Globulin 4.0 Albumin/Globulin Ratio 1.1 Procalcitonin 0.13 Urine Color Yellow Urine Appearance Clear Urine pH 5.0 Ur Specific Gobler 1.025 Urine Protein Trace H Urine Glucose (UA) Negative Urine Ketones Negative Urine Occult Blood Trace-intact Urine Nitrate Negative Urine Bilirubin Negative Urine Urobilinogen 0.2 Ur Leukocyte Esterase Negative Urine RBC 0-1/hpf Urine WBC None seen Ur Squamous Epith Cells None seen Urine Bacteria None seen Ur Culture Indicated? Cult not indicated Vol Urine Centrifuged 10ml (spun) Nasal Screen MRSA (PCR) Chlamy pneumoniae PCR Not detected Adenovirus (PCR) Not detected B.parapertussis DNA PCR Not detected Coronavirus OC43 (PCR) Not detected Coronavirus HKU1 (PCR) Not detected Coronavirus 229E (PCR) Not detected SARS-CoV-2 (PCR) Not detected Coronavirus NL63 (PCR) Not detected Human Metapneumovir PCR Not detected Influ A (H1N1 Seas) PCR Detected H Influenza Type B (PCR) Not detected M. pneumoniae (PCR) Not detected Parainfluenza 1 (PCR) Not detected Parainfluenza 2 (PCR) Not detected Parainfluenza 3 (PCR) Not detected Parainfluenza 4 (PCR) Not detected RSV (PCR) Not detected Entero/Rhino (PCR) Not detected 04/29/23 04/30/23 16:13 05:15 WBC 8.9 RBC 3.37 L Hgb 10.2 L Hct 30.9 L MCV 91.7 MCH 30.4 MCHC 33.1 RDW 14.5 Plt Count 144 L Neut % (Auto) 92.0 H Lymph % (Auto) 3.9 L Antelope % (Auto) 4.0 Eos % (Auto) 0.0 L Baso % (Auto) 0.1 Neut # (Auto) 8200 H Lymph # (Auto) 300 L Antelope # (Auto) 400 Eos # (Auto) 0 Baso # (Auto) 0 PT 12.9 H INR 1.1 APTT Sodium 139 Potassium 4.8 Chloride 101 Carbon Dioxide 28 BUN 45 H Creatinine 1.32 H Estimated GFR 53 L BUN/Creatinine Ratio 34.1 H Glucose 153 H Lactate Calcium 9.2 Total Bilirubin 0.6 AST 37 ALT 35 Alkaline Phosphatase 84 Total Creatine Kinase Troponin I NT-Pro-B Natriuret Pep Total Protein 7.6 Albumin 3.9 Globulin 3.7 Albumin/Globulin Ratio 1.1 Procalcitonin Urine Color Urine Appearance Urine pH Ur Specific Gobler Urine Protein Urine Glucose (UA) Urine Ketones Urine Occult Blood Urine Nitrate Urine Bilirubin Urine Urobilinogen Ur Leukocyte Esterase Urine RBC Urine WBC Ur Squamous Epith Cells Urine Bacteria Ur Culture Indicated? Vol Urine Centrifuged Nasal Screen MRSA (PCR) Not detected Chlamy pneumoniae PCR Adenovirus (PCR) B.parapertussis DNA PCR Coronavirus OC43 (PCR) Coronavirus HKU1 (PCR) Coronavirus 229E (PCR) SARS-CoV-2 (PCR) Coronavirus NL63 (PCR) Human Metapneumovir PCR Influ A (H1N1 Seas) PCR Influenza Type B (PCR) M. pneumoniae (PCR) Parainfluenza 1 (PCR) Parainfluenza 2 (PCR) Parainfluenza 3 (PCR) Parainfluenza 4 (PCR) RSV (PCR) Entero/Rhino (PCR) [facility] Medical History (Updated 04/29/23 @ 14:35 by Jeffrey Jennings MD) Alcohol abuse History of lung cancer Moderate aortic stenosis by prior echocardiogram Acute respiratory failure with hypoxia COPD (chronic obstructive pulmonary disease) Vision disorder Gout (~2011) Chronic back pain (~1959) History of urinary incontinence Pancreatitis (~2005) Lung cancer (~2007) Surgical History Anesthesia History of lung surgery (~03/2007) Family History Father Heart disease Grandmother Age: 82 Ovarian cancer, unspecified laterality Mother Diabetes mellitus Sister No problems noted. Social History marital status: household members: significant other and friend(s) Smoking Status: Current every day smoker alcohol intake: current substance use type: does not use Assessment & Plan Assessment and plan (1) Influenza A: Status: Acute (2) Pneumonia: Qualifiers: Laterality: bilateral Lung location: lower lobe of lung Pneumonia type: due to unspecified organism Qualified Code(s): J18.9 - Pneumonia, unspecified organism Status: Acute Plan Acute hypoxic respiratory failure-patient with respiratory failure multifactorial. Pneumonia community-acquired influenza heart failure. Patient on nasal cannula oxygen intermittent BiPAP. Still hypoxic and increased work of breathing poor lung sounds. Chest x-ray will be reviewed this morning. Continue with IV antibiotics IV diuresis. Patient also receiving nebulizer treatments. Acute diastolic congestive heart failure. Patient echocardiogram repeated this morning. Awaiting results from this. On IV Lasix 40 mg 3 times a day. Has had good urine output response. Kidney function up a little bit this morning. Will go ahead and decrease his IV diuresis to twice a day from 3 times a day. Continue to monitor electrolytes. Pneumonia bilateral. Community-acquired pneumonia. Antibiotics covering staph strep Haemophilus influenzae continue with ceftriaxone and Zithromax. White blood cell count is stable. Chest x-ray reviewed Influenza A. 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 Acute kidney injury. Due to underlying pneumonia heart failure. Continue to monitor electrolytes. Discussed decreased amount of diuresis. Alcohol misuse patient with alcohol misuse disorder. Previous hospitalizations patient has gone through alcohol withdrawal. See while tremors are always present. Lorazepam scheduled twice daily now. 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 Patient has a longstanding smoking history. Not a known CO2 retainer. Change from IV steroids to oral steroids today. Continue with nebulizers. Lung cancer. Patient with a history of lung cancer with previous lung surgery for removal. Patient now has a recurrence of a new primary lung cancer. This is being monitored by Oncology recent PET scan confirms this. Patient declines wanting chemotherapy. In a very poor surgical candidate. Have discussed with oncology multiple times about options for treatment. Coronary artery disease. No signs of acute decompensation. No signs of chest pain. Continue with beta-amilcar statin. Hypertension. Patient's blood pressure is mildly elevated. He will be placed back on his antihypertensive medication Hyperlipidemia patient will be placed on a statin Spinal stenosis with chronic low back pain. Patient will be restarted on his gabapentin. Be given Tylenol and or hydrocodone as needed for his pain. Constipation start stool softener. Code status patient is DNR. Prophylaxis with SCDs and Lovenox Quality VTE Deep Vein Thrombosis/Pulmonary Embolism Present on Admission: No
[2023-04-30] MEDS: ALBUTEROL 2.5 MG/3 ML NEB (ADULT) INH ×4 (08:08→23:12)
[2023-04-30] MEDS: BUDESONIDE 0.5 MG/2 ML NEB INH ×2 (08:08→23:10)
[2023-04-30] MEDS: THIAMINE 100 MG TABLET PO (08:47)
[2023-04-30] MEDS: OSELTAMIVIR 75 MG CAPSULE PO ×2 (08:47→20:32)
[2023-04-30] MEDS: ENOXAPARIN 40 MG/0.4 ML SYRINGE SUBCUT (08:47)
[2023-04-30] MEDS: FOLIC ACID 1 MG TABLET PO (08:47)
[2023-04-30] MEDS: GABAPENTIN 300 MG CAPSULE PO ×3 (08:47→20:32)
[2023-04-30] MEDS: MULTIVITAMIN 1 TABLET 1 TAB PO (08:47)
[2023-04-30] MEDS: METOPROLOL ER 25 MG TABLET PO ×2 (08:53→20:31)
[2023-04-30] MEDS: ASPIRIN 81 MG CHEW TAB PO (08:53)
--- NOTE | 2023-04-30 09:47 | PC.NURSE ---
Addendum entered by Marija Garvey R.N. 04/30/23 14:52: Spoke with provider, updated on CIWA scores <8, respiratory status, plan to wear BiPAP overnight, VBG, cxray and echo result. Provider okayed Dewitt to remain overnight during diuresis. Addendum entered by Marija Garvey R.N. 04/30/23 11:52: Full CHG bath performed Original Note: During rounds spoke with primary provider about PT/OT. Pt oriented but forgetful about date. Notified provider about decreased lung sounds - severely diminished. RN noticed cxray done but not read by mid-morning. Called xray to notify and request reading. Echo complete but not showing up - notified echo.
[2023-04-30] MEDS: cefTRIAXone 1,000 MG in SODIUM CHLORIDE 0.9% 100 ML 200 MG IV (10:07)
[2023-04-30] MEDS: polyethylene glycoL 3350 17 GM POWD.PACK PO (10:07)
[2023-04-30 12:02] LABS: PCO2 VBG 54.1 mmHg (45-50); PO2 VBG 42 mmHg (35-45); pH VBG 7.39 (7.33-7.43)
[2023-04-30 12:03] LABS: Fractionated Inspired Oxygen 32; HCO3 VBG 33 mmol/L (24-28); Oxygen Saturation VBG 76 % (70-75); Total CO2 VBG 34 mmol/L (24-29)
[2023-04-30] MEDS: AZITHROMYCIN 500 MG in DEXTROSE 5% IN WATER 250 ML 250 MG IV (12:29)
--- NOTE | 2023-04-30 12:42 | P.TELICUPN_ITS ---
Subjective Subjective IF CAMERA ACTIVATED, patient seen via real-time interactive audiovisual communication: Camera activated Consent obtained for tele-acetylene burner care: Yes Patient Location: ICU Provider location (State): [place] Other participants/roles: rn Interval history: pt weaned off bipap this AM, he awake, doing well on NC Reviewed his imagine, theer is signidfcant bullous emphysema with mocaicism indicating air trapping Current Medications Current Medications Medications: Home Medications aspirin 81 mg chewable tablet 81 mg PO DAILY 12/17/17 [History Confirmed 04/29/23] diphenhydramine HCl 25 mg capsule (Benadryl) 50 mg PO BEDTIME 05/05/22 [History Confirmed 04/29/23] acetaminophen 325 mg tablet 650 mg (2 x 325 mg) PO Q6H PRN Fever/Mild Pain (1-3) #30 tabs 05/09/22 [Rx Confirmed 04/29/23] multivitamin with folic acid 400 mcg tablet (Tab-A-Aranza) 1 tab PO DAILY #30 tabs 05/09/22 [Rx Confirmed 04/29/23] Disabled Parking #1 ea 05/27/22 [Rx Confirmed 04/29/23] fluticasone 250 mcg-salmeterol 50 mcg/dose blistr powdr for inhalation 1 inh inhalation BID #180 ea 05/27/22 [Rx Confirmed 04/29/23] metoprolol succinate 25 mg tablet,extended release 24 hr 25 mg PO BID #180 tabs 09/22/22 [Rx Confirmed 04/29/23] albuterol sulfate 90 mcg/actuation aerosol inhaler (Ventolin HFA) 2 puff inhalation Q4H PRN Shortness Of Breath #8.5 grams 12/30/22 [Rx Confirmed 04/29/23] atorvastatin 20 mg tablet 20 mg PO ONCE PM #90 tabs 01/26/23 [Rx Confirmed 04/29/23] gabapentin 300 mg capsule 300 mg PO 3XD #90 caps 03/27/23 [Rx Confirmed 04/29/23] hydrocodone 5 mg-acetaminophen 325 mg tablet 1 tab PO BID pain #60 tabs 04/06/23 [Rx Confirmed 04/29/23] Visit Medications (administered) Generic Name Dose Route Start Last Admin Trade Name Freq PRN Reason Stop Dose Admin Albuterol 2.5 mg 04/29/23 23:00 04/30/23 08:08 Albuterol 2.5 Mg/3 Ml Neb (Adult) INH 2.5 mg [id number] MARTIN Administration Albuterol 2.5 mg 04/29/23 19:24 04/29/23 20:03 Albuterol 2.5 Mg/3 Ml Neb (Adult) INH 2.5 mg [id number] PRN Administration Shortness Of Breath Aspirin 81 mg 04/30/23 09:00 04/30/23 08:53 Aspirin 81 Mg Chew Tab PO 81 mg DAILY MARTIN Administration Atorvastatin Calcium 20 mg 04/29/23 21:00 04/29/23 20:33 Atorvastatin 20 Mg Tablet PO 20 mg BEDTIME MARTIN Administration Budesonide 0.5 mg 04/29/23 20:00 04/30/23 08:08 Budesonide 0.5 Mg/2 Ml Neb INH 0.5 mg RTBID MARTIN Administration Enoxaparin Sodium 40 mg 04/29/23 13:00 04/30/23 08:47 Enoxaparin 40 Mg/0.4 Ml Syringe SUBCUT 40 mg DAILY MARTIN Administration Folic Acid 1 mg 04/30/23 09:00 04/30/23 08:47 Folic Acid 1 Mg Tablet PO 1 mg DAILY MARTIN Administration Gabapentin 300 mg 04/29/23 15:00 04/30/23 08:47 Gabapentin 300 Mg Capsule PO 300 mg TID MARTIN Administration Ceftriaxone Sodium 1,000 mg/ 100 mls @ 200 mls/hr 04/30/23 11:00 04/30/23 12:29 Sodium Chloride IV 05/03/23 11:29 Infused Q24H MARTIN Infusion Azithromycin 500 mg/ Dextrose 250 mls @ 250 mls/hr 04/30/23 12:00 04/30/23 12:29 IV 05/01/23 12:59 250 mls/hr Q24H MARTIN Administration Metoprolol Succinate 25 mg 04/29/23 21:00 04/30/23 08:53 Metoprolol Er 25 Mg Tablet PO 25 mg BID MARTIN Administration Multivitamins 1 tab 04/30/23 09:00 04/30/23 08:47 Multivitamin 1 Tablet PO 1 tab DAILY MARTIN Administration Oseltamivir Phosphate 75 mg 04/29/23 21:00 04/30/23 08:47 Oseltamivir 75 Mg Capsule PO 05/04/23 09:01 75 mg BID MARTIN Administration Polyethylene Glycol 17 gm 04/30/23 09:15 04/30/23 10:07 Polyethylene Glycol 3350 17 Gm Powd.Pack PO 17 gm DAILY MARTIN Administration Thiamine HCl 100 mg 04/30/23 09:00 04/30/23 08:47 Thiamine 100 Mg Tablet PO 05/03/23 09:01 100 mg DAILY MARTIN Administration Objective Ventilator Parameters: Ventilator Settings FiO2 35 Labs 04/30/23 05:15 04/30/23 05:15 Labs: Laboratory Results - last 24 hr 04/29/23 04/30/23 04/30/23 16:13 05:15 10:10 WBC 8.9 RBC 3.37 L Hgb 10.2 L Hct 30.9 L MCV 91.7 MCH 30.4 MCHC 33.1 RDW 14.5 Plt Count 144 L Neut % (Auto) 92.0 H Lymph % (Auto) 3.9 L Caroline % (Auto) 4.0 Eos % (Auto) 0.0 L Baso % (Auto) 0.1 Neut # (Auto) 8200 H Lymph # (Auto) 300 L Caroline # (Auto) 400 Eos # (Auto) 0 Baso # (Auto) 0 PT 12.9 H INR 1.1 VBG pH 7.39 VBG pCO2 54.1 H VBG pO2 42 VBG HCO3 33 H VBG Total CO2 34 H VBG O2 Saturation 76 H VBG Base Excess 8.0 H FiO2 32 Sodium 139 Potassium 4.8 Chloride 101 Carbon Dioxide 28 BUN 45 H Creatinine 1.32 H Estimated GFR 53 L BUN/Creatinine Ratio 34.1 H Glucose 153 H Calcium 9.2 Total Bilirubin 0.6 AST 37 ALT 35 Alkaline Phosphatase 84 Total Protein 7.6 Albumin 3.9 Globulin 3.7 Albumin/Globulin Ratio 1.1 Nasal Screen MRSA (PCR) Not detected Exam Vital Signs (past 8 hours): - 04/30/23 05:00 04/30/23 05:00 04/30/23 05:00 Temperature 97.6 F Pulse Rate 72 70 Respiratory Rate 20 19 Blood Pressure 119/59 L 119/59 L Pulse Oximetry 96 96 Oxygen Delivery Method Fraction of Inspired Oxygen 04/30/23 05:30 04/30/23 06:00 04/30/23 06:00 Temperature Pulse Rate 67 66 Respiratory Rate 19 18 Blood Pressure 118/58 L Pulse Oximetry 96 95 Oxygen Delivery Method Fraction of Inspired Oxygen 04/30/23 06:03 04/30/23 06:30 04/30/23 07:00 Temperature Pulse Rate 65 68 Respiratory Rate 19 21 Blood Pressure 118/58 L 125/60 Pulse Oximetry 94 94 Oxygen Delivery Method Fraction of Inspired Oxygen 04/30/23 07:00 04/30/23 07:30 04/30/23 08:00 Temperature Pulse Rate 66 67 Respiratory Rate 21 19 Blood Pressure 113/59 L Pulse Oximetry 95 95 Oxygen Delivery Method Fraction of Inspired Oxygen 04/30/23 08:00 04/30/23 08:00 04/30/23 08:08 Temperature Pulse Rate 63 65 Respiratory Rate 20 22 Blood Pressure Pulse Oximetry 94 96 Oxygen Delivery Method BiPAP BiPAP Fraction of Inspired Oxygen 04/30/23 08:09 04/30/23 08:16 04/30/23 08:30 Temperature Pulse Rate 64 68 Respiratory Rate 22 20 Blood Pressure 113/59 L Pulse Oximetry 95 97 Oxygen Delivery Method BiPAP Fraction of Inspired Oxygen 04/30/23 08:47 04/30/23 08:47 04/30/23 08:53 Temperature Pulse Rate 75 75 Respiratory Rate 25 H Blood Pressure 128/65 128/65 Pulse Oximetry 97 Oxygen Delivery Method Fraction of Inspired Oxygen 04/30/23 09:00 04/30/23 09:23 04/30/23 09:30 Temperature Pulse Rate 75 75 75 Respiratory Rate 31 H 21 Blood Pressure 122/63 Pulse Oximetry 98 97 Oxygen Delivery Method Fraction of Inspired Oxygen 04/30/23 09:34 04/30/23 09:34 04/30/23 10:00 Temperature Pulse Rate 77 Respiratory Rate 22 Blood Pressure 122/63 123/58 L Pulse Oximetry 96 Oxygen Delivery Method Fraction of Inspired Oxygen 04/30/23 10:00 04/30/23 10:30 04/30/23 10:31 Temperature 97.9 F Pulse Rate 74 75 Respiratory Rate 20 28 H Blood Pressure Pulse Oximetry 96 97 Oxygen Delivery Method Fraction of Inspired Oxygen 04/30/23 11:00 04/30/23 11:00 Temperature Pulse Rate 73 Respiratory Rate 20 Blood Pressure 122/60 Pulse Oximetry 98 Oxygen Delivery Method Fraction of Inspired Oxygen Fraction of Inspired Oxygen 25 SaO2/FiO2 Ratio 320 Oxygen Delivery Method BiPAP Narrative Exam Narrative: awake, NAD, ill appearing Chest Other: symmetric chest rise Cardio Other: rate controlled Quality TeleICU VTE Deep Vein Thrombosis/Pulmonary Embolism Present on Admission: No Assessment & Plan Assessment & Plan narrative: RESP: # Acute hypoxemia respiratory failure # PH # JAYCEE # bullous emphysema # spicualted nodulke cont supplementla o2 bipap prn nebs prn TTE appreciated, suspect eleavted PA pressure is likely mutlifactorial ( likely from emphysema and htn) adat trend bmp monitor UO cont prednisone on empirc abx tamiflu dvt ppx would send procal - if negative can likely de-escalate abx I would discuss working up the nodule with him and PCP, given his age if it is positive, im not sure he would be a good surgical candidate, or a candiate for chemotherapy. and irsks of a biopsy in that case would outweigh benefit D/w bedside RN.
--- NOTE | 2023-04-30 13:37 | PT.IIE ---
Current Diagnoses Acute diastolic (congestive) heart failure (04/29/23) Influenza due to other identified influenza virus with other respiratory manifestations (04/29/23) Pneumonia, unspecified organism (04/29/23) Acute respiratory failure with hypoxia (04/29/23) Surgical History (Last Reviewed 05/05/22 @ 11:50 by Jeffrey Jennings MD) Anesthesia History of lung surgery (~03/2007) Medical History (Last Updated 05/27/22 @ 11:02 by Arleen Ramey PA-C) Acute respiratory failure with hypoxia Alcohol abuse Chronic back pain (~1959) COPD (chronic obstructive pulmonary disease) Gout (~2011) History of lung cancer History of urinary incontinence Lung cancer (~2007) Moderate aortic stenosis by prior echocardiogram Pancreatitis (~2005) Vision disorder Physical Therapy Inpatient Evaluation/Re-Eval M1 PT/OT-IP Prior Functional Status Start: 04/30/23 13:20 Freq: NEEDED Status: Active Protocol: Document 04/30/23 13:20 MB (Rec: 04/30/23 13:37 MB [id number]) Medical Review Prior Functional Status Medical History Reviewed Yes Communication Unsure baseline diet, communicates needs Mobility and Gait Assistance from significant other, Leeanna, for all activities as needed. Pt mobilizes short distances in the home with RW and also has a manual w/c Activities of Daily Living and IADL's Assistance from caregiver as needed Social History Household Members significant other,friend(s) Living Arrangements House Number of Floors (Floors) One Floor Number of Stairs To Enter/Railing? 5 steps and rail to enter Home Environment High Toilet,Walk in Shower Home Equipment Front Wheel Walker,Manual Wheelchair,Shower Seat with Backrest,Hand Held Shower,Grab Bars Near Toilet,Grab Bars In Shower Employment Status Retired Additional Social History Comment Pt wears O2 at home and does con't to smoke but does not wear O2 when smoking M2 PT-IP Current Condition Start: 04/30/23 13:20 Freq: NEEDED Status: Active Protocol: Document 04/30/23 13:20 MB (Rec: 04/30/23 13:37 MB [id number]) Physical Therapy Current Condition Current Condition Evaluation Date 04/30/23 Treatment Diagnosis Influenza A M3 PT-IP Subjective Start: 04/30/23 13:20 Freq: NEEDED Status: Active Protocol: Document 04/30/23 13:20 MB (Rec: 04/30/23 13:37 MB [id number]) Subjective Physical Therapy Visit Type Type Initial Evaluation Visit Start Time 12:41 Visit Stop Time 13:02 Number of TERRA COTTA SETTER Visits 21 Physical Therapy Visit Comments Patient Comments What else have I got to do? when PT asks if it is okay that PT initiates evaluation with pt Therapy Pain Assessment Pain When Pain Assessed At Rest Pain Present Pain Present Denied Pain M4 PT-IP Mobility and Gait Start: 04/30/23 13:20 Freq: NEEDED Status: Active Protocol: Document 04/30/23 13:20 MB (Rec: 04/30/23 13:37 MB [id number]) PT-Bed Mobility Assessment Sit to Supine Sit to Supine Contact Guard Assistance,1 Person Assistance,Head of Bed Elevated,Bedrails Scooting Scooting Up and Down in Bed Minimal Assistance PT-Transfer Assessment Sit to and From Stand Sit to and from Stand Contact Guard Assistance,1 Person Assistance,Use of Upper Extremities Equipment Transfer Assistive Device Gait Belt Orthotic/Prosthetic Devices or Brace: No Transfers Transfer Destination Bed Transfer Technique Taking a few steps Transfer Ability Level of Assist Contact Guard Assistance Comments Mobility Comments Pt asks PT to step back and move the walker and then he requires CGA to stand up and turn around to his left d/t short O2 line to get to the EOB. He is severely with activity and requires several minutes of recovery time. O2 sats on 3L remain 99% and RR is 34. Pt's BP is 175/81 and he con't to feel like he doesn 't have air after mobility with dyspnea scale 4/4. Gait Assessment Gait Gait Assistance Required: Contact Guard Assist Distance (Feet) 1 Able to Maintain Weight Bearing Status Yes During Gait Assistive Devices Assistive Device Gait Belt Orthotic/Prosthetic Devices or Brace: No Gait Deviations General Gait Pattern Decreased Stride Length, Decreased Feet Clearance, Flexed Trunk,Wide Based Gait Factors Limiting Gait Function Factors Limiting Gait Function Decreased Activity Tolerance, Poor Balance Comments Gait Comments Pt with severe MALODNADO that limits mobility PT-Balance Assessment Sitting Balance and Reactions Static Sitting Balance Ability Good Dynamic Sitting Balance Ability Good Standing Balance and Reactions Static Standing Balance Ability Fair Dynamic Standing Balance Ability Fair Device Used Gait belt and CGA M5 PT-IP Objective Assessments Start: 04/30/23 13:20 Freq: NEEDED Status: Active Protocol: Document 04/30/23 13:20 MB (Rec: 04/30/23 13:37 MB [id number]) Orientation Orientation/Cognition Level of Alertness Alert Orientation Name,Age,Birthday,Month,Date, Year,Day of Week,Place, Situation Language Function Ability No Deficits Noted Safety Awareness Decreased Safety Awareness Memory Description No Deficits Noted Gross Range of Motion Upper Extremity ROM Impairments Defer to OT Lower Extremity ROM Assessment Within Functional Limits Impairments Increased abdominal soft tissue limits some hip mobility Strength Lower Extremity Strength Assessment Within Functional Limits M6 PT-IP Treatment Start: 04/30/23 13:20 Freq: NEEDED Status: Active Protocol: Document 04/30/23 13:20 MB (Rec: 04/30/23 13:37 MB [id number]) Physical Therapy Treatment Education Education Provided Safety Other Treatments Other Treatment Performed Breathing to improve symptoms M7 PT-IP Assessment and Plan Start: 04/30/23 13:20 Freq: NEEDED Status: Active Protocol: Document 04/30/23 13:20 MB (Rec: 04/30/23 13:37 MB [id number]) PT Summary Assessment and Plan Potential Rehabilitation Potential Fair Status of Condition at Evaluation Evolving Summary Impairments Balance,Bed Mobility,Transfers ,Gait,Activity Tolerance Progress Towards Goals Slow Progress due to Activity Tolerance Assessment Summary Sushant is a good humored 87 y /o male known to this PT. He has a supportive significant other, Leeanna, who is not available and who also has the flu. At baseline, pt has O2 and con't to smoke and has little activity tolerance. He asks PT to step away so he can stand up and get back to the bed. He only requires CGA and has good functional strength in his legs. He is severely dyspneic with little mobility and requires increased time to rest after the transfer and is very SOB and his BP increases with minimal activity d/t high exertion. He will benefit from acute and post-acute PT to improve mobility and safety. Baseline poor pulmonary function is a barrier and pt con't to make lifestyle choices that do not change this. Goals Bed Mobility Goal Independent Transfer Goal Standby Assistance,Front Wheeled Walker Gait Goal Standby Assistance,Front Wheel Walker Gait Distance 25 Other Goals Pt will ascend and descend 5 steps with rail and no more than CGA to allow safe home entrance. Days to Meet Goals 10 Frequency of Treatment Frequency Of Treatment Once a Day Treatment Plan Physical Therapy Treatment Plan Bed Mobility Training,Transfer Training,Gait Training, Therapeutic Exercise,Balance Retraining,Discharge Planning, Neuromuscular Re-ed Weight Bearing Status Weight Bearing Status Weight Bear as Tolerated Recommendations To Nursing Amount of Assist Needed 2 Person Assist Discharge Recommendations PT Discharge Recommendations Home with 29/09 Assist Available,Home Health Transportation Needs at Discharge Private Vehicle,Wheelchair/ Cabulance
--- NOTE | 2023-04-30 15:41 | CM.DANOTE ---
Initial DCP Assessment Note Patient is an 87 yo M, resident [facility], presents with shortness of breath. PMH includes lung cancer with recurrence, COPD, heavy ETOH use, CHF now with Flu A+ and pneumonia and resp failure. PCP: Jeffrey Jennings Payer: [employer] Initial assessment completed with information available on chart. Patient seen by PT and recommendation is for return home w/assist and HH services. Patient lives w/SO/cg Lizz P [phone] who provides assist with most ADLs. Patient has very poor activity tolerance, continues to smoke and record indicates heavy use of alcohol w/hx of ETOh w/d, exact use unknown. Plan: Anticipate patient will discharge home w/continued assist from SO/cg Lizz. Patient appears to be a good hospice candidate if provider and patient would consider. CM team will plan to follow clinical course and will remain available for coordination of discharge plan. ALYSHA Amanda Discharge Planning/Care Management CM Discharge Assessment Start: 04/30/23 15:38 Freq: Status: Active Protocol: Document 04/30/23 15:38 FRAN (Rec: 04/30/23 15:41 [id number]) Discharge Planning Assessment Assigned Sorority Mother ALYSHA Smith DPOA/Assigned Designee Name Opal Shea, daughter Contact Information [phone] Advance Directives? Yes: POLST Advance Directives on File Yes History Provided By Patient,Significant Other, Medical Record Prior Living Arrangements House Household Members significant other,friend(s) Type of transporation used prior to Relies on Others admit Independent with ADL's No Is patient alert and oriented? Yes Comment Assistance from SO/cg Lizz w/ most ADLs Patient/Family Preference Home with Home Health Barriers to Discharge No Comment PT recommending return home w/ HH Discharge Plan Home with Home Health Transportation Arrangement Friend Referrals Initiated Home Health Additional Comment HH if patient agreeable
[2023-04-30] MEDS: ATORVASTATIN 20 MG TABLET PO (20:31)
[2023-04-30] MEDS: LORazepam 1 MG TABLET PO (20:33)
[2023-05-01] VITALS (50 sets, daily range): BP systolic 84–139; BP diastolic 46–86; PULSE 65–151; RESP 10–50; TEMP 31–37.6; O2SAT 91–99
[2023-05-01] MEDS: LORazepam 2 MG/ML INJ IV ×2 (00:01→02:09)
[2023-05-01 05:12] LABS: Add Manual Diff / Slide Review NO; Basophils Absolute Auto 0 /uL (0-100); Eosinophils Absolute Auto 0 /uL (0-450); Hematocrit 31.4 % (41-53); Hemoglobin 10.4 g/dL (13.5-17.5); Lymphocytes Absolute Auto 400 /uL (1100-4500); Lymphocytes Percent Auto 4.3 % (25-40); Mean Corpuscular HGB Conc 33.2 % (30-36); Mean Corpuscular Hemoglobin 30.4 PG (26-34); Mean Corpuscular Volume 91.6 fL (80-100); Monocytes Absolute Auto 500 /uL (0-900); Monocytes Percent Auto 5.7 % (3-14); Neutrophils Absolute Auto 8600 /uL (1500-7000); Platelet Count 170 X10^3/uL (150-400); Red Blood Cell Count 3.43 X10^6/uL (4.5-5.9); Red Cell Distribution Width 14.2 % (11.6-14.8); White Blood Cell Count 9.6 X10^3/uL (4.5-11.0)
[2023-05-01 05:30] LABS: Alanine Aminotransferase 33 IU/L (<50); Albumin 3.8 g/dL (3.5-5.0); Alkaline Phosphatase 72 U/L (38-126); Aspartate Aminotransferase 32 IU/L (17-59); BUN Creatinine Ratio 44.1 (6-22); Bilirubin Total 0.6 mg/dL (0.2-1.3); Blood Urea Nitrogen 60 mg/dL (9-20); Calcium 9.4 mg/dL (8.4-10.2); Carbon Dioxide 33 mmol/L (22-32); Chloride 99 mmol/L (98-107); Estimated Glomerular Filt Rate 51 mL/min (>60); Globulin 3.7 g/dL (1.7-4.1); Glucose 145 mg/dL (80-110); HEMOLYSIS < 15 (0-50); Potassium 4.7 mmol/L (3.4-5.1); Sodium 138 mmol/L (137-145); Total Protein 7.5 g/dL (6.3-8.2)
--- NOTE | 2023-05-01 06:25 | PC.NURSE ---
Patient intermittently restful throughout the night. AOx4 at the beginning of the night around 0000 patient became increasing more confused and anxious, patient was scoring 9 on the CIWA scale. Administered 1 mg IV Ativan and repeated 1mg for a score of 9 around 0200. Patient received a total of 2mg IV Ativan throughout the night along with scheduled PO dose at bedtime. Patient became most restful and less restless after administration. CIWA score remains at a 1-2. VSS, slightly hypotensive after Ativan. Sinus Arrhythmia on tele in the 60-80s, afebrile. Tolerating 4LNC vs. Bipap 14/5 at 30%FiO2. Voids per urinal, Took medication well with water. Voids per indwelling catheter, catheter care performed. Up to bedside commode with assist x2. Tolerated activty, and recovered well, tachypnea with exertion noted. PIV x2 intact, saline locked. Bed alarm on for safety. Call light within reach. Plan of care continued.
--- NOTE | 2023-05-01 08:10 | PM.PN.1 ---
Subjective Subjective Date Patient Seen: 05/01/23 Time Patient Seen: 08:10 Interval history: Patient seen and evaluated this morning patient is a little bit more confused. Was on BiPAP last night. He says he did not sleep so much. Given a little bit of Ativan. CIWA score went up a little bit. Patient has previously gone through alcohol withdrawal. Still has Dewitt catheter in. Urine output is less brisk with IV Lasix. Had good p.o. intake he has had a bowel movement. Blood pressure is just a little bit soft this morning. Exam Vital Signs (past 8 hours): - 05/01/23 00:34 05/01/23 00:35 05/01/23 00:35 Temperature Pulse Rate 81 80 Respiratory Rate 22 39 H Blood Pressure 119/80 119/80 Pulse Oximetry 95 Oxygen Delivery Method Oxygen Flow Rate Fraction of Inspired Oxygen 05/01/23 01:00 05/01/23 02:00 05/01/23 02:00 Temperature Pulse Rate 79 79 Respiratory Rate 23 22 Blood Pressure 139/86 129/63 Pulse Oximetry 95 95 Oxygen Delivery Method Oxygen Flow Rate 2 2 Fraction of Inspired Oxygen 05/01/23 02:45 05/01/23 02:48 05/01/23 02:48 Temperature Pulse Rate 71 77 Respiratory Rate 22 42 H Blood Pressure 93/50 L 93/50 L Pulse Oximetry 91 Oxygen Delivery Method Oxygen Flow Rate Fraction of Inspired Oxygen 05/01/23 03:00 05/01/23 03:00 05/01/23 03:00 Temperature Pulse Rate 78 77 Respiratory Rate 20 23 Blood Pressure 93/52 L 93/52 L Pulse Oximetry 92 92 Oxygen Delivery Method Oxygen Flow Rate 2 Fraction of Inspired Oxygen 30 05/01/23 03:03 05/01/23 04:00 05/01/23 04:00 Temperature 97.0 F L Pulse Rate 74 Respiratory Rate 19 Blood Pressure 86/49 L Pulse Oximetry 94 Oxygen Delivery Method BiPAP Oxygen Flow Rate Fraction of Inspired Oxygen 25 30 05/01/23 04:00 05/01/23 04:00 05/01/23 04:24 Temperature Pulse Rate 73 Respiratory Rate 39 H Blood Pressure 86/49 L 84/46 L Pulse Oximetry 93 Oxygen Delivery Method Oxygen Flow Rate 2 Fraction of Inspired Oxygen 05/01/23 04:24 05/01/23 05:00 05/01/23 05:00 Temperature Pulse Rate 71 65 Respiratory Rate 36 H 19 Blood Pressure 92/54 L 92/54 L Pulse Oximetry 91 94 Oxygen Delivery Method Oxygen Flow Rate Fraction of Inspired Oxygen 30 05/01/23 05:00 05/01/23 06:00 05/01/23 06:00 Temperature Pulse Rate 68 66 66 Respiratory Rate 19 17 17 Blood Pressure 98/53 L 98/53 L Pulse Oximetry 93 96 94 Oxygen Delivery Method Oxygen Flow Rate 2 2 Fraction of Inspired Oxygen 35 05/01/23 07:02 05/01/23 07:49 05/01/23 07:49 Temperature 98.3 F Pulse Rate 72 72 Respiratory Rate 21 21 Blood Pressure 95/55 L 94/51 L Pulse Oximetry 98 98 Oxygen Delivery Method Nasal Cannula Oxygen Flow Rate Fraction of Inspired Oxygen 30 30 Fraction of Inspired Oxygen 30 SaO2/FiO2 Ratio 320 Oxygen Delivery Method Nasal Cannula Oxygen Flow Rate 2 Narrative Exam Narrative: Gen.: Alert some mild confusion HEENT: Pupils equal round and reactive nasal cannula in place Cardio: S1-S2 systolic murmur present Respiratory: Very distant lung sounds hard to hear. Some rhonchi Abdomen: Soft nontender no rebound or guarding n Extremities: Generalized weakness no edema Objective Labs 05/01/23 04:48 05/01/23 04:48 Labs: Laboratory Results - last 24 hr 04/30/23 05/01/23 10:10 04:48 WBC 9.6 RBC 3.43 L Hgb 10.4 L Hct 31.4 L MCV 91.6 MCH 30.4 MCHC 33.2 RDW 14.2 Plt Count 170 Neut % (Auto) 90.0 H Lymph % (Auto) 4.3 L [place] % (Auto) 5.7 Eos % (Auto) 0.0 L Baso % (Auto) 0.0 Neut # (Auto) 8600 H Lymph # (Auto) 400 L [place] # (Auto) 500 Eos # (Auto) 0 Baso # (Auto) 0 VBG pH 7.39 VBG pCO2 54.1 H VBG pO2 42 VBG HCO3 33 H VBG Total CO2 34 H VBG O2 Saturation 76 H VBG Base Excess 8.0 H FiO2 32 Sodium 138 Potassium 4.7 Chloride 99 Carbon Dioxide 33 H BUN 60 H Creatinine 1.36 H Estimated GFR 51 L BUN/Creatinine Ratio 44.1 H Glucose 145 H Calcium 9.4 Total Bilirubin 0.6 AST 32 ALT 33 Alkaline Phosphatase 72 Total Protein 7.5 Albumin 3.8 Globulin 3.7 Albumin/Globulin Ratio 1.0 [facility] Medical History (Updated 04/29/23 @ 14:35 by Jeffrey Jennings MD) Alcohol abuse History of lung cancer Moderate aortic stenosis by prior echocardiogram Acute respiratory failure with hypoxia COPD (chronic obstructive pulmonary disease) Vision disorder Gout (~2011) Chronic back pain (~1959) History of urinary incontinence Pancreatitis (~2005) Lung cancer (~2007) Surgical History Anesthesia History of lung surgery (~03/2007) Family History Father Heart disease Grandmother Age: 82 Ovarian cancer, unspecified laterality Mother Diabetes mellitus Sister No problems noted. Social History marital status: household members: significant other and friend(s) Smoking Status: Current every day smoker alcohol intake: current substance use type: does not use Assessment & Plan Assessment and plan (1) Pneumonia: Qualifiers: Laterality: bilateral Lung location: lower lobe of lung Pneumonia type: due to unspecified organism Qualified Code(s): J18.9 - Pneumonia, unspecified organism Status: Acute Plan Acute hypoxic respiratory failure-patient with respiratory failure multifactorial. Pneumonia exacerbation of COPD influenza. Continue IV antibiotics Tamiflu BiPAP and O2 support. Currently on nasal cannula oxygen 3-4 L sats are doing okay. Not known to be a significant CO2 retainer Acute diastolic congestive heart failure. Patient producing less diuresis with IV Lasix. Changing to oral Lasix today. Negative fluid balance for the last few days. Kidney function has gone up just a little bit. Taking good p.o. intake. Pneumonia bilateral. Community-acquired pneumonia. Change to oral Zithromax continue with IV ceftriaxone Influenza A. Contact precautions continue Tamiflu started by tele bias binding cutter. Acute kidney injury. Due to underlying pneumonia heart failure. Decrease diuresis. Electrolytes stable. Alcohol misuse patient with alcohol misuse disorder. 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 Patient has a longstanding smoking history. Not a known CO2 retainer. Change from IV steroids to oral steroids today. Continue with nebulizers. Lung cancer. Patient with a history of lung cancer with previous lung surgery for removal. Patient now has a recurrence of a new primary lung cancer. This is being monitored by Oncology recent PET scan confirms this. Patient declines wanting chemotherapy. In a very poor surgical candidate. Have discussed with oncology multiple times about options for treatment. Coronary artery disease. No signs of acute decompensation. No signs of chest pain. Continue with beta-amilcar statin. Hypertension. Patient's blood pressure is mildly elevated. He will be placed back on his antihypertensive medication Hyperlipidemia patient will be placed on a statin Spinal stenosis with chronic low back pain. Patient will be restarted on his gabapentin. Be given Tylenol and or hydrocodone as needed for his pain. Constipation MiraLax patient has had bowel movements Code status patient is DNR. Prophylaxis with SCDs and Lovenox Discussion with transition social worker today about long-term care plans. Patient sent previously has denied hospice at home. May need a probable another 2-3 days in hospital Quality VTE Deep Vein Thrombosis/Pulmonary Embolism Present on Admission: No
[2023-05-01] MEDS: polyethylene glycoL 3350 17 GM POWD.PACK PO (08:28)
[2023-05-01] MEDS: ENOXAPARIN 40 MG/0.4 ML SYRINGE SUBCUT (08:28)
[2023-05-01] MEDS: METOPROLOL ER 25 MG TABLET PO ×2 (08:29→20:19)
[2023-05-01] MEDS: MULTIVITAMIN 1 TABLET 1 TAB PO (08:30)
[2023-05-01] MEDS: GABAPENTIN 300 MG CAPSULE PO ×3 (08:30→20:19)
[2023-05-01] MEDS: LORazepam 1 MG TABLET PO ×2 (08:30→20:19)
[2023-05-01] MEDS: ASPIRIN 81 MG CHEW TAB PO (08:31)
[2023-05-01] MEDS: FOLIC ACID 1 MG TABLET PO (08:31)
[2023-05-01] MEDS: OSELTAMIVIR 75 MG CAPSULE PO ×2 (08:31→20:19)
[2023-05-01] MEDS: THIAMINE 100 MG TABLET PO (08:31)
[2023-05-01] MEDS: predniSONE 20 MG TABLET 60 MG PO (08:31)
[2023-05-01] MEDS: FUROSEMIDE 40 MG TABLET PO (08:47)
[2023-05-01] MEDS: BUDESONIDE 0.5 MG/2 ML NEB INH ×2 (09:40→19:18)
[2023-05-01] MEDS: ALBUTEROL 2.5 MG/3 ML NEB (ADULT) INH ×3 (09:40→19:18)
[2023-05-01] MEDS: SODIUM CHLORIDE 0.9% 250 ML 21 ML IV (10:29)
[2023-05-01] MEDS: cefTRIAXone 1,000 MG in SODIUM CHLORIDE 0.9% 100 ML 200 MG IV (10:44)
[2023-05-01] MEDS: AZITHROMYCIN 250 MG TABLET 500 MG PO (11:28)
--- NOTE | 2023-05-01 11:31 | PT.IPTN ---
Current Diagnoses Acute diastolic (congestive) heart failure (04/29/23) Influenza due to other identified influenza virus with other respiratory manifestations (04/29/23) Pneumonia, unspecified organism (04/29/23) Acute respiratory failure with hypoxia (04/29/23) Physical Therapy Treatment Note M2 PT-IP Current Condition Start: 04/30/23 13:20 Freq: NEEDED Status: Active Protocol: Document 04/30/23 13:20 MB (Rec: 04/30/23 13:37 MB [id number]) Physical Therapy Current Condition Current Condition Evaluation Date 04/30/23 Treatment Diagnosis Influenza A M3 PT-IP Subjective Start: 04/30/23 13:20 Freq: NEEDED Status: Active Protocol: Document 05/01/23 12:21 TS (Rec: 05/01/23 12:33 TS [id number]) Subjective Physical Therapy Visit Type Type Treatment Note Visit Start Time 11:31 Visit Stop Time 12:00 Number of APPROVER Visits 1 Physical Therapy Visit Comments Patient Comments Pt found resting in chair, Spo2 96% on 4L, pt is agreeable to PT. M4 PT-IP Mobility and Gait Start: 04/30/23 13:20 Freq: NEEDED Status: Active Protocol: Document 05/01/23 12:21 TS (Rec: 05/01/23 12:33 TS [id number]) PT-Transfer Assessment Sit to and From Stand Sit to and from Stand Moderate Assistance,1 Person Assistance,Use of Upper Extremities Equipment Transfer Assistive Device Gait Belt,Front Wheeled Walker Orthotic/Prosthetic Devices or Brace: No Comments Mobility Comments STS from chair ModA, pt uses momentum to stand with FWW. In standing pt has some retorleaning, required cues for weight forward and upright posture. He ambulated in room ~25'CGA and ModA for lateral LOB and use of FWW. pt required to sit on chair, Spo2 desat to 86% on 4L, cues for PLB provided, pt improved to 93% after ~1min. STS from chair ModA with FWW. Pt performed stairs x5 with Hansa and use of counter top. Pt had x1LOB requring Hansa and counter support to recover. Pt was left back in chair, spo2 90% on 4L, RN notified. Gait Assessment Gait Gait Assistance Required: Contact Guard Assist,Moderate Assistance,1 Person Assist Distance (Feet) 25 Able to Maintain Weight Bearing Status Yes During Gait Assistive Devices Assistive Device Gait Belt,Front Wheeled Walker Orthotic/Prosthetic Devices or Brace: No Gait Deviations General Gait Pattern Decreased Stride Length, Decreased Feet Clearance, Flexed Trunk,Wide Based Gait Factors Limiting Gait Function Factors Limiting Gait Function Decreased Activity Tolerance, Decreased Strength,Difficulty Following Directions,Poor Balance,Poor Safety Awareness Comments Gait Comments See mobility comments. Stair Climbing Assessment Evaluation Level of Assist On Stairs Minimal Assistance,1 Person Assistance Devices Stair Climbing Assistive Devices Left Railing Technique/Endurance Stair Climbing Direction Ascend and Descend Stair Climbing Technique Step to Step Number of Steps Climbed 5 Comments Stair Climbing Comments See mobility comments PT-Balance Assessment Sitting Balance and Reactions Static Sitting Balance Ability Good Dynamic Sitting Balance Ability Good Standing Balance and Reactions Static Standing Balance Ability Fair Dynamic Standing Balance Ability Fair Device Used FWW M5 PT-IP Objective Assessments Start: 04/30/23 13:20 Freq: NEEDED Status: Active Protocol: Document 04/30/23 13:20 MB (Rec: 04/30/23 13:37 MB [id number]) Orientation Orientation/Cognition Level of Alertness Alert Orientation Name,Age,Birthday,Month,Date, Year,Day of Week,Place, Situation Language Function Ability No Deficits Noted Safety Awareness Decreased Safety Awareness Memory Description No Deficits Noted Gross Range of Motion Upper Extremity ROM Impairments Defer to OT Lower Extremity ROM Assessment Within Functional Limits Impairments Increased abdominal soft tissue limits some hip mobility Strength Lower Extremity Strength Assessment Within Functional Limits M6 PT-IP Treatment Start: 04/30/23 13:20 Freq: NEEDED Status: Active Protocol: Document 05/01/23 12:21 TS (Rec: 05/01/23 12:33 [id number]) Physical Therapy Treatment Education Education Provided Safety Other Treatments Other Treatment Performed Breathing to improve symptoms M7 PT-IP Assessment and Plan Start: 04/30/23 13:20 Freq: NEEDED Status: Active Protocol: Document 05/01/23 12:21 TS (Rec: 05/01/23 12:33 TS [id number]) PT Summary Assessment and Plan Potential Rehabilitation Potential Fair Summary Impairments Balance,Bed Mobility,Transfers ,Gait,Activity Tolerance Progress Towards Goals Slow Progress due to Activity Tolerance Assessment Summary Todd continues to make slow progress with his mobility. He is ModA for STS x2 from chair and with use of FWW. He ambulated in room ~25', required ModA for LOB with use of FWW. His o2 desats to mid 80's after ambulation, pt recovered to low 90's ater ~ 1min. He performed stairs x5 with use of single rail. Pt has x1 LOB descending step requiring Hansa and lupe of counter to keep balance. PT at this time is recommending 24/ 7 at home with SO assist and HHPT vs SNF. Todd would benenfit from SNF stay to improve strength, balance and activity tolerance. SO is currently in [facility] and currently not available to assist. Goals Bed Mobility Goal Independent Transfer Goal Standby Assistance,Front Wheeled Walker Gait Goal Standby Assistance,Front Wheel Walker Gait Distance 25 Other Goals Pt will ascend and descend 5 steps with rail and no more than CGA to allow safe home entrance. Days to Meet Goals 10 Frequency of Treatment Frequency Of Treatment Once a Day Treatment Plan Physical Therapy Treatment Plan Bed Mobility Training,Transfer Training,Gait Training, Therapeutic Exercise,Balance Retraining,Discharge Planning, Neuromuscular Re-ed Weight Bearing Status Weight Bearing Status Weight Bear as Tolerated Recommendations To Nursing Amount of Assist Needed 1 Person Assist Discharge Recommendations PT Discharge Recommendations Home with 24/7 Assist Available,Home Health,SNF Rehab,Home vs SNF Transportation Needs at Discharge Private Vehicle,Wheelchair/ Cabulance
--- NOTE | 2023-05-01 14:14 | CM.DPNOTE ---
Addendum entered by ALYSHA Quinteros 05/01/23 14:20: ADD: If patient refuses all services and referrals upon discharge, he may be a good candidate for APS referral- self neglect Original Note: DCP Cont According to conversation with Dr Jennings; patient's only caregiver Lizz is currently admitted at [facility]. Dr Jennings reports patient had been seen by [facility] in the home recently and refused services. Patient refuses SNF at this time. Dr Jennings anticipates patient will likely remain in the hospital another 48-72 hours. Hopefully caregiver/SO Lizz will be available soon for patient's return home. R/o HH vs Hospice services closer to discharge. Placed call to [facility] Adi Reddy [phone], had to LM. CM team following closely for coordination of the safest discharge plan available to patient and one that patient will agree to. FRAN
--- NOTE | 2023-05-01 16:26 | DIET.CONS ---
Dietary Consultation Note Admission Date: 04/29/2023 12:36 Assessment: 87M admitted with SOB. PMH of lung ca, CHF, CAD, chronic renal failure, HTN, HLD, and obesity. Found to have pneumonia, influenza, and acute heart failure. RD consulted for malnutrition assessment. GFR 51L CR 1.36H Provider notes indicate mild ETOH withdrawal. 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 Has had some weight loss per EMR records. Todd reports weight of 258# one month ago, indicating -11.6# or 4.5% loss. Has h/o lung cancer with previous surgery for removal, and now has recurrent lung cancer, no chemo tx. Diet recall indicates inadequate protein intake with protein at one meal per day. NFPE indicates some mild wasting of temples and interosseous muscle. Recent admission PO adequate. RN asked for weighted utensils due to tremor making self feeding difficult. Diet recall: B: 3 oat pkts, 2 toast D: scoop of potatoes, 1-2 servings meat, and veggies sn: ice cream Denies any snacks during day. Ht: 177.8 cm Wt: 112 kg BMI: 36.2 Last BM: 04/30/23 (04/30/23 12:13) MNA: 13 Viral Score: 21 Diet: 04/29/23 Dinner General (Regular) Diet Diet Modifications: Food Texture: Level 7 - Regular Liquid Consistency: Level 0 - Thin Nutrition Percent Meal Consumed 100% 05/01/23 13:30 Percent Meal Consumed 100% 04/30/23 18:48 Percent Meal Consumed 80 04/29/23 18:00 Labs: RBC 3.43 X10^6/uL (4.5-5.9) L 05/01/23 04:48 Hgb 10.4 g/dL (13.5-17.5) L 05/01/23 04:48 Hct 31.4 % (41-53) L 05/01/23 04:48 Creatinine 1.36 mg/dL (0.66-1.25) H 05/01/23 04:48 Lactate 1.2 mmol/L (0.7-2.1) 04/29/23 10:10 NT-Pro-B Natriuret Pep 5910 pg/mL (<450) H 04/29/23 10:10 Nutrition Diagnosis: Acute on chronic moderate protein calorie malnutrition r/t inadequate protein intake and ETOH misuse aeb physical signs of wasting of temples and interosseous, mild ETOH withdrawal, and diet recall indicating low protein intake. -The patient is at much higher risk for medical and surgical complications because of their malnutrition.? This increases the difficulty and complexity of medical and surgical interventions and increases the chances of poor outcomes such as morbidity and mortality. Interventions: ONS daily Kitchen to send weighted utensils Counseled on adding protein some protein to meals earlier in the day upon d/c EER: 110-120g PRO (1-1.1g/kg per PCM and renal insufficiencies) 1600-1700kcal (15kcal/kg per BMI) Monitoring/Evaluations: RD f/u 3-5 days Electronically Signed by: Livier Bernal 05/01/23 16:26 Clinical Dietitian [address] [id number]
[2023-05-01] MEDS: dilTIAZem 30 MG TABLET 60 MG PO (18:33)
--- NOTE | 2023-05-01 18:35 | PC.NURSE ---
1750 Heart rate noted to be 140 - afib, Dr. Goyal notified and orders received for PO diltiazem prn HR above 120
[2023-05-01] MEDS: ATORVASTATIN 20 MG TABLET PO (20:19)
[2023-05-01] MEDS: METOPROLOL IR 25 MG TABLET PO (20:19)
[2023-05-02] VITALS (27 sets, daily range): BP systolic 105–130; BP diastolic 57–87; PULSE 78–116; RESP 16–46; TEMP 35.7–37.3; O2SAT 91–100
[2023-05-02] MEDS: ALBUTEROL 2.5 MG/3 ML NEB (ADULT) INH ×3 (07:33→19:20)
[2023-05-02] MEDS: BUDESONIDE 0.5 MG/2 ML NEB INH ×2 (07:33→19:20)
[2023-05-02 07:42] LABS: Add Manual Diff / Slide Review NO; Basophils Absolute Auto 0 /uL (0-100); Basophils Percent Auto 0.2 % (0-2); Eosinophils Absolute Auto 0 /uL (0-450); Hemoglobin 10.5 g/dL (13.5-17.5); Lymphocytes Absolute Auto 900 /uL (1100-4500); Lymphocytes Percent Auto 9.2 % (25-40); Mean Corpuscular HGB Conc 32.9 % (30-36); Mean Corpuscular Hemoglobin 30.2 PG (26-34); Mean Corpuscular Volume 91.7 fL (80-100); Monocytes Absolute Auto 900 /uL (0-900); Monocytes Percent Auto 9.1 % (3-14); Neutrophils Absolute Auto 8400 /uL (1500-7000); Neutrophils Percent Auto 81.5 % (50-75); Platelet Count 190 X10^3/uL (150-400); Red Blood Cell Count 3.49 X10^6/uL (4.5-5.9); Red Cell Distribution Width 14.2 % (11.6-14.8); White Blood Cell Count 10.3 X10^3/uL (4.5-11.0)
[2023-05-02 07:57] LABS: Alanine Aminotransferase 31 IU/L (<50); Albumin 3.8 g/dL (3.5-5.0); Albumin Globulin Ratio 1.1 (1.0-2.8); Alkaline Phosphatase 61 U/L (38-126); Aspartate Aminotransferase 27 IU/L (17-59); BUN Creatinine Ratio 55.9 (6-22); Bilirubin Total 0.6 mg/dL (0.2-1.3); Blood Urea Nitrogen 76 mg/dL (9-20); Calcium 9.3 mg/dL (8.4-10.2); Carbon Dioxide 33 mmol/L (22-32); Chloride 98 mmol/L (98-107); Estimated Glomerular Filt Rate 51 mL/min (>60); Globulin 3.6 g/dL (1.7-4.1); Glucose 126 mg/dL (80-110); HEMOLYSIS < 15 (0-50); Potassium 4.8 mmol/L (3.4-5.1); Sodium 139 mmol/L (137-145); Total Protein 7.4 g/dL (6.3-8.2)
[2023-05-02] MEDS: FOLIC ACID 1 MG TABLET PO (08:31)
[2023-05-02] MEDS: LORazepam 1 MG TABLET PO ×2 (08:31→20:36)
[2023-05-02] MEDS: ASPIRIN 81 MG CHEW TAB PO (08:31)
[2023-05-02] MEDS: METOPROLOL ER 25 MG TABLET PO (08:32)
[2023-05-02] MEDS: MULTIVITAMIN 1 TABLET 1 TAB PO (08:32)
[2023-05-02] MEDS: predniSONE 20 MG TABLET 60 MG PO (08:33)
[2023-05-02] MEDS: THIAMINE 100 MG TABLET PO (08:33)
[2023-05-02] MEDS: OSELTAMIVIR 75 MG CAPSULE PO ×2 (08:34→20:36)
[2023-05-02] MEDS: GABAPENTIN 300 MG CAPSULE PO ×3 (08:34→20:36)
[2023-05-02] MEDS: FUROSEMIDE 40 MG TABLET PO (08:34)
[2023-05-02] MEDS: ENOXAPARIN 40 MG/0.4 ML SYRINGE SUBCUT (08:34)
[2023-05-02] MEDS: polyethylene glycoL 3350 17 GM POWD.PACK PO (08:35)
--- NOTE | 2023-05-02 10:32 | CM.DPC ---
DCP HH planning Per MD and RN, pt seems to have improved some this morning with reduction in his confusion and more alert and ate his breakfast. Per PT, recommending home with 29/09 and HH vs SNF pending if his Sig Other will be home at discharge. SW met bedside with pt and explained role and pt confirms that he is waiting to hear from Sig Other who has been admitted to [facility] for severe nasal infection and he is unsure how long she might be admitted to [facility]. Pt confirms that he declines going to SNF and denies any other local family but states I have a lot of local friends who can help transport me home and bring me meals, etc... Pt is agreeable with HH and used HH last year and requesting [facility] and feels HH will be needed to maintain his strength and balance at d/c. SW made [facility] referral based on pt preferences and F2F completed but not faxed yet. Plan: SW to follow closely for plan of home, hopefully with Sig Other, and [facility] referral made. ALYSHA Nova
[2023-05-02] MEDS: cefTRIAXone 1,000 MG in SODIUM CHLORIDE 0.9% 100 ML 200 MG IV (10:40)
--- NOTE | 2023-05-02 11:41 | PT.IPTN ---
Current Diagnoses Acute diastolic (congestive) heart failure (04/29/23) Influenza due to other identified influenza virus with other respiratory manifestations (04/29/23) Pneumonia, unspecified organism (04/29/23) Acute respiratory failure with hypoxia (04/29/23) Physical Therapy Treatment Note M2 PT-IP Current Condition Start: 04/30/23 13:20 Freq: NEEDED Status: Active Protocol: Document 04/30/23 13:20 MB (Rec: 04/30/23 13:37 MB [id number]) Physical Therapy Current Condition Current Condition Evaluation Date 04/30/23 Treatment Diagnosis Influenza A M3 PT-IP Subjective Start: 04/30/23 13:20 Freq: NEEDED Status: Active Protocol: Document 05/02/23 12:29 TS (Rec: 05/02/23 12:43 TS [id number]) Subjective Physical Therapy Visit Type Type Treatment Note Visit Start Time 11:41 Visit Stop Time 12:05 Number of METAL HANGER Visits 2 Physical Therapy Visit Comments Patient Comments Pt is agreeable to get up for shower. M4 PT-IP Mobility and Gait Start: 04/30/23 13:20 Freq: NEEDED Status: Active Protocol: Document 05/02/23 12:29 TS (Rec: 05/02/23 12:43 TS [id number]) PT-Bed Mobility Assessment Supine to Sit Supine to Sit Minimal Assistance Scooting Scooting to Edge of Bed Contact Guard Assistance PT-Transfer Assessment Sit to and From Stand Sit to and from Stand Minimal Assistance,1 Person Assistance,Use of Upper Extremities Equipment Transfer Assistive Device Gait Belt,Front Wheeled Walker Orthotic/Prosthetic Devices or Brace: No Comments Mobility Comments Spo2 93% on 2L prior to mobility. Supine to sit Hansa with LAN SPECIALIST and HOB elevated. He scooted to EOB CGA with BUE support. STS from bed Hansa with use of FWW, pt has some retroleaning and flexed posture. He ambulated ~15' Hansa with FWW, pt is usnteady and requires cues to stay close to FWW. Pt sat on shower chair Hansa for eccentric control. Pt was left with nursing for shower. Gait Assessment Gait Gait Assistance Required: Minimum Assistance,1 Person Assist Distance (Feet) 15 Able to Maintain Weight Bearing Status Yes During Gait Assistive Devices Assistive Device Gait Belt,Front Wheeled Walker Orthotic/Prosthetic Devices or Brace: No Gait Deviations General Gait Pattern Decreased Stride Length, Decreased Feet Clearance, Flexed Trunk,Wide Based Gait Factors Limiting Gait Function Factors Limiting Gait Function Decreased Activity Tolerance, Decreased Strength,Difficulty Following Directions,Poor Balance,Poor Safety Awareness, Respiratory Distress Comments Gait Comments See mobility comments. PT-Balance Assessment Sitting Balance and Reactions Static Sitting Balance Ability Good Dynamic Sitting Balance Ability Fair Standing Balance and Reactions Static Standing Balance Ability Fair Dynamic Standing Balance Ability Fair Device Used FWW M5 PT-IP Objective Assessments Start: 04/30/23 13:20 Freq: NEEDED Status: Active Protocol: Document 04/30/23 13:20 MB (Rec: 04/30/23 13:37 MB [id number]) Orientation Orientation/Cognition Level of Alertness Alert Orientation Name,Age,Birthday,Month,Date, Year,Day of Week,Place, Situation Language Function Ability No Deficits Noted Safety Awareness Decreased Safety Awareness Memory Description No Deficits Noted Gross Range of Motion Upper Extremity ROM Impairments Defer to OT Lower Extremity ROM Assessment Within Functional Limits Impairments Increased abdominal soft tissue limits some hip mobility Strength Lower Extremity Strength Assessment Within Functional Limits M6 PT-IP Treatment Start: 04/30/23 13:20 Freq: NEEDED Status: Active Protocol: Document 05/02/23 12:29 TS (Rec: 05/02/23 12:43 TS [id number]) Physical Therapy Treatment Education Education Provided Safety M7 PT-IP Assessment and Plan Start: 04/30/23 13:20 Freq: NEEDED Status: Active Protocol: Document 05/02/23 12:29 TS (Rec: 05/02/23 12:43 TS [id number]) PT Summary Assessment and Plan Potential Rehabilitation Potential Fair Summary Impairments Balance,Bed Mobility,Transfers ,Gait,Activity Tolerance Progress Towards Goals Slow Progress due to Medical Issues,Slow Progress due to Activity Tolerance Assessment Summary Todd is making slow progress with his mobility. He is Hansa with LAN SPECIALIST and HOB elevated for bed mobility. He continues to ambulate short distances in room with use of FWW, he is unsteady, impulsive and requires cues for safety. PT continues to recommend Home vs SNF at this time. pt would benefit from 29/09 care with daily PT to improve strength and activity tolerance. Goals Bed Mobility Goal Independent Transfer Goal Standby Assistance,Front Wheeled Walker Gait Goal Standby Assistance,Front Wheel Walker Gait Distance 25 Other Goals Pt will ascend and descend 5 steps with rail and no more than CGA to allow safe home entrance. Days to Meet Goals 10 Frequency of Treatment Frequency Of Treatment Once a Day Treatment Plan Physical Therapy Treatment Plan Bed Mobility Training,Transfer Training,Gait Training, Therapeutic Exercise,Balance Retraining,Discharge Planning, Neuromuscular Re-ed Weight Bearing Status Weight Bearing Status Weight Bear as Tolerated Recommendations To Nursing Amount of Assist Needed 1 Person Assist Discharge Recommendations PT Discharge Recommendations Home with 29/09 Assist Available,Home Health,SNF Rehab,Home vs SNF Transportation Needs at Discharge Private Vehicle,Wheelchair/ Cabulance
--- NOTE | 2023-05-02 13:14 | PM.PN.1 ---
Subjective Subjective Date Patient Seen: 05/02/23 Time Patient Seen: 13:15 Interval history: Patient had episode last night of AFib with RVR. Received 1 dose of 60 mg immediate release diltiazem without significant improvement and then an hour and a half later received his night dose metoprolol XL and at the same time and additional 25 mg 1 time dose of immediate release. His blood pressure has improved and his heart rate has come down from 1 40s to 90s to low 100s. His vital signs are stable. He is having decreased oxygen requirement. No new concerns Difficulty sleeping last night. Exam Vital Signs (past 8 hours): - 05/02/23 06:00 05/02/23 07:00 05/02/23 07:00 Temperature Pulse Rate 83 78 Respiratory Rate 46 H 43 H Blood Pressure Pulse Oximetry 94 94 Oxygen Delivery Method Nasal Cannula Oxygen Flow Rate Fraction of Inspired Oxygen 05/02/23 07:34 05/02/23 08:00 05/02/23 08:00 Temperature 98.1 F Pulse Rate 83 84 84 Respiratory Rate 16 30 H 36 H Blood Pressure 112/80 Pulse Oximetry 92 97 94 Oxygen Delivery Method High Flow Nasal Cannula Oxygen Flow Rate 2 2 Fraction of Inspired Oxygen 28 05/02/23 08:00 05/02/23 08:32 05/02/23 09:00 Temperature Pulse Rate 80 94 H Respiratory Rate 39 H Blood Pressure 112/80 112/80 Pulse Oximetry Oxygen Delivery Method Oxygen Flow Rate Fraction of Inspired Oxygen 05/02/23 09:07 05/02/23 10:00 05/02/23 11:00 Temperature Pulse Rate 94 H 85 89 Respiratory Rate 30 H 33 H Blood Pressure 112/80 Pulse Oximetry 92 Oxygen Delivery Method Oxygen Flow Rate Fraction of Inspired Oxygen 05/02/23 11:06 05/02/23 12:00 05/02/23 12:00 Temperature Pulse Rate 90 98 H 106 H Respiratory Rate 22 30 H 43 H Blood Pressure Pulse Oximetry 93 91 Oxygen Delivery Method Nasal Cannula Oxygen Flow Rate 2 2 Fraction of Inspired Oxygen 05/02/23 12:48 05/02/23 12:48 05/02/23 13:00 Temperature Pulse Rate 107 H 89 Respiratory Rate 34 H 38 H Blood Pressure 127/78 Pulse Oximetry 93 93 Oxygen Delivery Method Oxygen Flow Rate Fraction of Inspired Oxygen Fraction of Inspired Oxygen 28 SaO2/FiO2 Ratio 328 Oxygen Delivery Method Nasal Cannula Oxygen Flow Rate 2 Narrative Exam Narrative: AF, VSS HEENT: mm moist and pink Chest prolonged expiratory phase with scattered wheeze. No crackles Cor irregularly irregular rhythm at a rate in the low 100s Abdomen positive bowel sounds, soft, nontender, nondistended, obese Extremities no edema pulses intact neuro nonfocal Objective Labs 05/02/23 07:25 05/02/23 07:25 Labs: Laboratory Results - last 24 hr 05/02/23 07:25 WBC 10.3 RBC 3.49 L Hgb 10.5 L Hct 32.0 L MCV 91.7 MCH 30.2 MCHC 32.9 RDW 14.2 Plt Count 190 Neut % (Auto) 81.5 H Lymph % (Auto) 9.2 L [place] % (Auto) 9.1 Eos % (Auto) 0.0 L Baso % (Auto) 0.2 Neut # (Auto) 8400 H Lymph # (Auto) 900 L [place] # (Auto) 900 Eos # (Auto) 0 Baso # (Auto) 0 Sodium 139 Potassium 4.8 Chloride 98 Carbon Dioxide 33 H BUN 76 H Creatinine 1.36 H Estimated GFR 51 L BUN/Creatinine Ratio 55.9 H Glucose 126 H Calcium 9.3 Total Bilirubin 0.6 AST 27 ALT 31 Alkaline Phosphatase 61 Total Protein 7.4 Albumin 3.8 Globulin 3.6 Albumin/Globulin Ratio 1.1 PFSH Medical History Alcohol abuse History of lung cancer Moderate aortic stenosis by prior echocardiogram Acute respiratory failure with hypoxia COPD (chronic obstructive pulmonary disease) Vision disorder Gout (~2011) Chronic back pain (~1959) History of urinary incontinence Pancreatitis (~2005) Lung cancer (~2007) Surgical History Anesthesia History of lung surgery (~03/2007) Family History Father Heart disease Grandmother Age: 83 Ovarian cancer, unspecified laterality Mother Diabetes mellitus Sister No problems noted. Social History marital status: household members: significant other and friend(s) Smoking Status: Current every day smoker alcohol intake: current substance use type: does not use Assessment & Plan Assessment & Plan narrative: 1) Pneumonia: Qualifiers: Laterality: bilateral Lung location: lower lobe of lung Pneumonia type: due to unspecified organism Qualified Code(s): J18.9 - Pneumonia, unspecified organism Status: Acute Plan Acute hypoxic respiratory failure-patient with respiratory failure multifactorial. Pneumonia exacerbation of COPD influenza. Continue IV antibiotics Tamiflu BiPAP and O2 support. Currently on nasal cannula oxygen 2-3 L sats are doing okay. Not known to be a significant CO2 retainer Acute diastolic congestive heart failure. Patient producing less diuresis with IV Lasix. Stable now on oral Lasix. Will decrease from 40 mg to 20 mg due to increasing BUN and suspected appropriate diuresis. Negative fluid balance for the last few days. Kidney function has gone up just a little bit. Taking good p.o. intake. Pneumonia bilateral. Community-acquired pneumonia. Change to oral Zithromax continue with IV ceftriaxone patient only written for 4 doses of ceftriaxone. I think likely we should continue this IV for total of 7 days or home on orals once discharge pending when this is. AFib with RVR. Reviewed his echo in February 27. Rate is better controlled now. We will increase metoprolol to 50 b.i.d.. Will continue to monitor. Will check magnesium. Suspect related to overall stress and hospitalization overall illness. At this point will not repeat echo Influenza A. Contact precautions. Will continue with Tamiflu Acute kidney injury. Due to underlying pneumonia heart failure. Decrease diuresis. Electrolytes stable. Will decrease oral diuresis to 20 mg from 40 mg Alcohol misuse patient with alcohol misuse disorder. Really yesterday should have been the worst day. Patient is stable. Will continue to monitor. 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 Patient has a longstanding smoking history. Not a known CO2 retainer. Doing well on prednisone. Will continue 1 more day at 60 mg and then decrease to 40 mg.. Continue with nebulizers. Patient is on 4 L nasal cannula oxygen reportedly at home and currently on 2 L. Lung cancer. Patient with a history of lung cancer with previous lung surgery for removal. Patient now has a recurrence of a new primary lung cancer. This is being monitored by Oncology recent PET scan confirms this. Patient declines wanting chemotherapy. In a very poor surgical candidate. Have discussed with oncology multiple times about options for treatment. We discussed hospice previously with Dr. Jennings and patient declines at this time. Coronary artery disease. No signs of acute decompensation. No signs of chest pain. Continue with beta-amilcar statin. Hypertension. Overall blood pressure is stable. Will increase metoprolol to 50 b.i.d. to treat AFib with RVR. Suspect blood pressure will handle this. Blood pressure is higher than it was yesterday was having some episodes of hypotension. We will monitor closely. Hyperlipidemia patient will be placed on a statin Spinal stenosis with chronic low back pain. Patient will be restarted on his gabapentin. Be given Tylenol and or hydrocodone as needed for his pain. Constipation MiraLax patient has had bowel movements Code status patient is DNR. Prophylaxis with SCDs and Lovenox Continue with physical therapy. Discussion with social insurance adviser today about long-term care plans. Patient declines SNF or home with hospice. Looking for possible discharge home with home health possibly thursday Quality VTE Deep Vein Thrombosis/Pulmonary Embolism Present on Admission: No
[2023-05-02 14:33] LABS: Magnesium 2.1 mg/dL (1.6-2.3)
--- NOTE | 2023-05-02 20:21 | RT ---
Addendum entered by Isabella Garza 05/02/23 20:33: At time of 2020 on 05/02/23. Original Note: Pt declined BiPAP.
[2023-05-02] MEDS: ATORVASTATIN 20 MG TABLET PO (20:36)
[2023-05-02] MEDS: METOPROLOL ER 25 MG TABLET 50 MG PO (20:36)
[2023-05-03] VITALS (12 sets, daily range): BP systolic 109–126; BP diastolic 63–85; PULSE 68–99; RESP 16–24; TEMP 36–36.7; O2SAT 95–99
[2023-05-03 04:50] LABS: Add Manual Diff / Slide Review NO; Basophils Absolute Auto 0 /uL (0-100); Basophils Percent Auto 0.2 % (0-2); Eosinophils Absolute Auto 0 /uL (0-450); Hematocrit 33.1 % (41-53); Hemoglobin 10.8 g/dL (13.5-17.5); Lymphocytes Absolute Auto 800 /uL (1100-4500); Lymphocytes Percent Auto 8.6 % (25-40); Mean Corpuscular HGB Conc 32.8 % (30-36); Mean Corpuscular Hemoglobin 29.9 PG (26-34); Mean Corpuscular Volume 91.4 fL (80-100); Monocytes Absolute Auto 600 /uL (0-900); Monocytes Percent Auto 6.7 % (3-14); Neutrophils Absolute Auto 7700 /uL (1500-7000); Neutrophils Percent Auto 84.5 % (50-75); Platelet Count 205 X10^3/uL (150-400); Red Blood Cell Count 3.62 X10^6/uL (4.5-5.9); Red Cell Distribution Width 14.2 % (11.6-14.8); White Blood Cell Count 9.1 X10^3/uL (4.5-11.0)
[2023-05-03 05:25] LABS: BUN Creatinine Ratio 61.3 (6-22); Blood Urea Nitrogen 73 mg/dL (9-20); Calcium 9.6 mg/dL (8.4-10.2); Carbon Dioxide 38 mmol/L (22-32); Chloride 97 mmol/L (98-107); Estimated Glomerular Filt Rate 60 mL/min (>60); Glucose 140 mg/dL (80-110); HEMOLYSIS < 15 (0-50); Potassium 5.3 mmol/L (3.4-5.1); Sodium 141 mmol/L (137-145)
[2023-05-03] MEDS: ASPIRIN 81 MG CHEW TAB PO (08:35)
[2023-05-03] MEDS: METOPROLOL ER 25 MG TABLET 50 MG PO ×2 (08:35→21:43)
[2023-05-03] MEDS: ENOXAPARIN 40 MG/0.4 ML SYRINGE SUBCUT (08:35)
[2023-05-03] MEDS: MULTIVITAMIN 1 TABLET 1 TAB PO (08:36)
[2023-05-03] MEDS: FUROSEMIDE 40 MG TABLET 20 MG PO (08:36)
[2023-05-03] MEDS: OSELTAMIVIR 75 MG CAPSULE PO ×2 (08:37→20:21)
[2023-05-03] MEDS: FOLIC ACID 1 MG TABLET PO (08:37)
[2023-05-03] MEDS: THIAMINE 100 MG TABLET PO (08:37)
[2023-05-03] MEDS: predniSONE 20 MG TABLET 60 MG PO (08:37)
[2023-05-03] MEDS: GABAPENTIN 300 MG CAPSULE PO ×3 (08:37→20:23)
[2023-05-03] MEDS: polyethylene glycoL 3350 17 GM POWD.PACK PO (08:38)
[2023-05-03] MEDS: ALBUTEROL 2.5 MG/3 ML NEB (ADULT) INH ×2 (10:28→20:26)
[2023-05-03] MEDS: cefTRIAXone 1,000 MG in SODIUM CHLORIDE 0.9% 100 ML 200 MG IV (11:30)
--- NOTE | 2023-05-03 12:20 | PT.IPTN ---
Current Diagnoses Acute diastolic (congestive) heart failure (04/29/23) Influenza due to other identified influenza virus with other respiratory manifestations (04/29/23) Pneumonia, unspecified organism (04/29/23) Acute respiratory failure with hypoxia (04/29/23) Physical Therapy Treatment Note M2 PT-IP Current Condition Start: 04/30/23 13:20 Freq: NEEDED Status: Active Protocol: Document 04/30/23 13:20 MB (Rec: 04/30/23 13:37 MB [id number]) Physical Therapy Current Condition Current Condition Evaluation Date 04/30/23 Treatment Diagnosis Influenza A M3 PT-IP Subjective Start: 04/30/23 13:20 Freq: NEEDED Status: Active Protocol: Document 05/03/23 12:05 KS (Rec: 05/03/23 12:56 KS [id number]) Subjective Physical Therapy Visit Type Type Treatment Note Visit Start Time 12:05 Visit Stop Time 12:20 Number of HAND I TUBE BENDER Visits 3 Physical Therapy Visit Comments Patient Comments Pt is agreeable to PT, feeling more fatigued today. M4 PT-IP Mobility and Gait Start: 04/30/23 13:20 Freq: NEEDED Status: Active Protocol: Document 05/03/23 12:05 KS (Rec: 05/03/23 12:56 KS [id number]) PT-Bed Mobility Assessment Sit to Supine Sit to Supine Moderate Assistance,1 Person Assistance,Head of Bed Elevated Scooting Scooting to Edge of Bed Contact Guard Assistance PT-Transfer Assessment Sit to and From Stand Sit to and from Stand Minimal Assistance,1 Person Assistance,Use of Upper Extremities Equipment Transfer Assistive Device Gait Belt,Front Wheeled Walker Orthotic/Prosthetic Devices or Brace: No Transfers Transfer Destination Chair Transfer Technique Taking a few steps Transfer Ability Level of Assist Minimal Assistance,Moderate Assistance,1 Person Assistance ,Use of Upper Extremities Comments Mobility Comments Pt in bed upon arrival, feeling weaker and more tired today, but agreeable to transfer to chair for lunch. Pt required Mod A for sup<>sit today, CGA for scooting, and Min A for sit<>stand w/ FWW. Pt ambulated ~6 ft to chair, and requested to be done w/ PT and eat lunch. Pt left in chair w. all needs in reach. Gait Assessment Gait Gait Assistance Required: Minimum Assistance,1 Person Assist Distance (Feet) 6 Able to Maintain Weight Bearing Status Yes During Gait Assistive Devices Assistive Device Gait Belt,Front Wheeled Walker Orthotic/Prosthetic Devices or Brace: No Gait Deviations General Gait Pattern Decreased Stride Length, Decreased Feet Clearance, Flexed Trunk,Wide Based Gait Factors Limiting Gait Function Factors Limiting Gait Function Decreased Activity Tolerance, Decreased Strength,Difficulty Following Directions,Poor Balance,Poor Safety Awareness, Respiratory Distress Comments Gait Comments See mobility comments. PT-Balance Assessment Sitting Balance and Reactions Static Sitting Balance Ability Good Dynamic Sitting Balance Ability Fair Standing Balance and Reactions Static Standing Balance Ability Fair Dynamic Standing Balance Ability Fair Device Used FWW M5 PT-IP Objective Assessments Start: 04/30/23 13:20 Freq: NEEDED Status: Active Protocol: Document 04/30/23 13:20 MB (Rec: 04/30/23 13:37 MB [id number]) Orientation Orientation/Cognition Level of Alertness Alert Orientation Name,Age,Birthday,Month,Date, Year,Day of Week,Place, Situation Language Function Ability No Deficits Noted Safety Awareness Decreased Safety Awareness Memory Description No Deficits Noted Gross Range of Motion Upper Extremity ROM Impairments Defer to OT Lower Extremity ROM Assessment Within Functional Limits Impairments Increased abdominal soft tissue limits some hip mobility Strength Lower Extremity Strength Assessment Within Functional Limits M6 PT-IP Treatment Start: 04/30/23 13:20 Freq: NEEDED Status: Active Protocol: Document 05/03/23 12:05 KS (Rec: 05/03/23 12:56 KS [id number]) Physical Therapy Treatment Education Education Provided Safety M7 PT-IP Assessment and Plan Start: 04/30/23 13:20 Freq: NEEDED Status: Active Protocol: Document 05/03/23 12:05 KS (Rec: 05/03/23 12:56 KS [id number]) PT Summary Assessment and Plan Potential Rehabilitation Potential Fair Summary Impairments Balance,Bed Mobility,Transfers ,Gait,Activity Tolerance Progress Towards Goals Slow Progress due to Medical Issues,Slow Progress due to Activity Tolerance Assessment Summary Pt limited by low tolerance for activity and weakness, Mod A for sup<>sit, Min A for sit <>stand and short distance ambulation to chair. Pt remains unsteady and impulsive , requires safety cues. PT continues to recommend Home vs SNF at this time. pt would benefit from 29/09 care with daily PT to improve strength and activity tolerance. Goals Bed Mobility Goal Independent Transfer Goal Standby Assistance,Front Wheeled Walker Gait Goal Standby Assistance,Front Wheel Walker Gait Distance 25 Other Goals Pt will ascend and descend 5 steps with rail and no more than CGA to allow safe home entrance. Days to Meet Goals 10 Frequency of Treatment Frequency Of Treatment Once a Day Treatment Plan Physical Therapy Treatment Plan Bed Mobility Training,Transfer Training,Gait Training, Therapeutic Exercise,Balance Retraining,Discharge Planning, Neuromuscular Re-ed Weight Bearing Status Weight Bearing Status Weight Bear as Tolerated Recommendations To Nursing Amount of Assist Needed 1 Person Assist Discharge Recommendations PT Discharge Recommendations Home with 29/09 Assist Available,Home Health,SNF Rehab,Home vs SNF Transportation Needs at Discharge Private Vehicle,Wheelchair/ Cabulance
--- NOTE | 2023-05-03 12:41 | PM.PN.1 ---
Subjective Subjective Interval history: Patient very somnolent yesterday likely related to lorazepam. It was held this morning. Patient continues on 2 L nasal cannula oxygen. Patient denies any pain today. Patient is eating and drinking Patient is working with physical therapy Still feeling weak Significant other is still hospitalized at [facility] Denies chest pain Feels breathing is much better Exam Vital Signs (past 8 hours): - 05/03/23 07:00 05/03/23 07:37 05/03/23 08:00 Temperature Pulse Rate 87 Respiratory Rate 22 Blood Pressure 111/63 Pulse Oximetry 98 99 Oxygen Delivery Method Nasal Cannula Nasal Cannula Oxygen Flow Rate 2 2 Fraction of Inspired Oxygen 28 05/03/23 08:35 05/03/23 10:28 05/03/23 10:30 Temperature 97.1 F L Pulse Rate 90 68 68 Respiratory Rate 20 16 Blood Pressure 111/71 123/85 Pulse Oximetry 95 97 Oxygen Delivery Method Nasal Cannula Oxygen Flow Rate 2 Fraction of Inspired Oxygen Fraction of Inspired Oxygen 28 SaO2/FiO2 Ratio 350 Oxygen Delivery Method Nasal Cannula Oxygen Flow Rate 2 Narrative Exam Narrative: Afebrile vital signs are stable. O2 sats are 95% on 2 L Patient is much more alert today more communicative. Neck: Supple Chest: Left lung with increased breath sounds history of pneumonectomy on this side expiratory wheezes heard throughout and scattered rhonchi that clear with cough decreased breath sounds bibasilar overall improved air exchange from yesterday Cor: Irregularly irregular rhythm at a well-controlled rate Abdomen: Obese, positive bowel sounds, soft, nontender, nondistended Extremities: No edema pulses intact Neurologic exam nonfocal Objective Labs 05/03/23 04:30 05/03/23 04:30 Labs: Laboratory Results - last 24 hr 05/02/23 05/03/23 07:25 04:30 WBC 9.1 RBC 3.62 L Hgb 10.8 L Hct 33.1 L MCV 91.4 MCH 29.9 MCHC 32.8 RDW 14.2 Plt Count 205 Neut % (Auto) 84.5 H Lymph % (Auto) 8.6 L [place] % (Auto) 6.7 Eos % (Auto) 0.0 L Baso % (Auto) 0.2 Neut # (Auto) 7700 H Lymph # (Auto) 800 L [place] # (Auto) 600 Eos # (Auto) 0 Baso # (Auto) 0 Sodium 141 Potassium 5.3 H Chloride 97 L Carbon Dioxide 38 H BUN 73 H Creatinine 1.19 Estimated GFR 60 BUN/Creatinine Ratio 61.3 H Glucose 140 H Calcium 9.6 Magnesium 2.1 PFSH Medical History Alcohol abuse History of lung cancer Moderate aortic stenosis by prior echocardiogram Acute respiratory failure with hypoxia COPD (chronic obstructive pulmonary disease) Vision disorder Gout (~2011) Chronic back pain (~1959) History of urinary incontinence Pancreatitis (~2005) Lung cancer (~2007) Surgical History Anesthesia History of lung surgery (~03/2007) Family History Father Heart disease Grandmother Age: 83 Ovarian cancer, unspecified laterality Mother Diabetes mellitus Sister No problems noted. Social History marital status: household members: significant other and friend(s) Smoking Status: Current every day smoker alcohol intake: current substance use type: does not use Assessment & Plan Assessment & Plan narrative: Assessment & Plan narrative: 1) Pneumonia: Qualifiers: Laterality: bilateral Lung location: lower lobe of lung Pneumonia type: due to unspecified organism Qualified Code(s): J18.9 - Pneumonia, unspecified organism Status: Acute Plan Acute hypoxic respiratory failure-patient with respiratory failure multifactorial etiology. Pneumonia, exacerbation of COPD, influenza. Continue IV antibiotics, Tamiflu and O2 support. Currently on nasal cannula oxygen 2 L sats are doing okay. Not known to be a significant CO2 retainer Acute diastolic congestive heart failure. Patient producing less diuresis with IV Lasix. Stable now on oral Lasix. Will decrease from 40 mg to 20 mg due to increasing BUN and suspected appropriate diuresis. Negative fluid balance for the last few days. Kidney function has gone up just a little bit. Taking good p.o. intake. Pneumonia bilateral. Community-acquired pneumonia. Change to oral Zithromax continue with IV ceftriaxone patient only written for 4 doses of ceftriaxone. I think likely we should continue this IV for total of 7 days or home on orals once discharge pending when this is. Patient likely home tomorrow and I anticipate he will be done with azithromycin and will continue on a p.o. antibiotic, possibly Ceftin AFib with RVR. Reviewed his echo in February 27. Rate is better controlled now. Will continue to monitor. Will check magnesium. Suspect related to overall stress and hospitalization overall illness. At this point will not repeat echo. Patient has maintained in AFib with well-controlled rate. He is on the increase in metoprolol 50 mg twice daily in his doing well Influenza A. Contact precautions. Will continue with Tamiflu. Possibly this is contributing to his elevated BUN and hyperkalemia. We will reassess tomorrow. We will stop Lasix and encourage p.o. fluids Acute kidney injury. Due to underlying pneumonia heart failure. Decrease diuresis. Electrolytes stable. We decreased diuresis to 20 mg from 40 mg done yesterday and will stop Lasix today. Tamiflu. Possibly this is contributing to his elevated BUN and hyperkalemia. We will reassess tomorrow. We will stop Lasix and encourage p.o. fluids Alcohol misuse patient with alcohol misuse disorder. Really yesterday should have been the worst day. Patient is stable. Will continue to monitor. Patient continued to be stable and we will go ahead and stop his lorazepam that scheduled 1 mg twice daily. Patient was somnolent all day yesterday. It was held this morning and we will decrease the nighttime dose. 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 Patient has a longstanding smoking history. Not a known CO2 retainer. Doing well on prednisone. Will decrease prednisone 40 mg a day starting today Continue with nebulizers. Patient is on 4 L nasal cannula oxygen reportedly at home and currently on 2 L. Lung cancer. Patient with a history of lung cancer with previous lung surgery for removal. Patient now has a recurrence of a new primary lung cancer. This is being monitored by Oncology recent PET scan confirms this. Patient declines wanting chemotherapy. In a very poor surgical candidate. Have discussed with oncology multiple times about options for treatment. We discussed hospice previously with Dr. Jennings and patient declines at this time. Coronary artery disease. No signs of acute decompensation. No signs of chest pain. Continue with beta-amilcar statin. Hypertension. Overall blood pressure is stable. Increased metoprolol to 50 b.i.d. to treat AFib with RVR. Blood pressure better controlled. We will monitor closely. Hyperlipidemia patient will be placed on a statin Spinal stenosis with chronic low back pain. Patient will be restarted on his gabapentin. Be given Tylenol and or hydrocodone as needed for his pain. Constipation MiraLax patient has had bowel movements Code status patient is DNR. Disposition: Discussed with discharge planning and anticipate home with home health tomorrow. Repeat CBC and BNP in the morning. 54 minutes was spent with patient reviewing his chart, discussing with nursing and social work and formulating a plan and documentation Quality VTE Deep Vein Thrombosis/Pulmonary Embolism Present on Admission: No
--- NOTE | 2023-05-03 13:17 | CM.DPC ---
Addendum entered by ALYSHA Nova 05/03/23 14:31: ADD: SW attempted to call pt's Sig Rose Billingsn to confirm discharge plan with her and see if she is back home from her own admission to the hospital and left and requested call back. SW provided pt's IMM and explained his Medicare Rights and provided copy of IMM for him to review. BF Original Note: DCP Cont: Per MD, stopping pt's tamiflu and getting more labs and pt not yet stable for d/c today but hopeful pt will be stable overnight for plan of discharge home with Sig Other and HH. SW met bedside with pt and updated on possible plan for d/c tomorrow and pt remains agreeable with home with HH, still declines SNF, but he is unsure if Sig Other home yet from being admitted to [facility]. Pt confirms he does not feel stable for d/c today and states he is quite weak and fatigued still today but preference is home with HH tomorrow if he is stable. Plan: SW to follow for calling Sig Other to confirm her ability to assist and for plan of home with new referral sent to [facility]. F2F completed. ALYSHA Nova
--- NOTE | 2023-05-03 15:35 | PC.NURSE ---
Pt transferred from ICU at 1030, arrived to room 209 in wheelchair. A&Ox4, VSS on 2L NC. Able to transfer SBA w/FWW from wheelchair to bed. Lung sounds tight and diminished with expiratory wheezes on R side, respiratory therapy called for administration of breathing treatment. CMS+, bowel sounds present, no c/o pain. Pt oriented to room and call light. Bed in low position, call light within reach, SCDs on, bed alarm activated.
[2023-05-03] MEDS: ATORVASTATIN 20 MG TABLET PO (20:21)
[2023-05-03] MEDS: LORazepam 1 MG TABLET 0.5 MG PO (20:21)
[2023-05-03] MEDS: BUDESONIDE 0.5 MG/2 ML NEB INH (20:26)
[2023-05-04] VITALS (11 sets, daily range): BP systolic 108–127; BP diastolic 51–86; PULSE 82–95; RESP 16–22; TEMP 35.6–36.6; O2SAT 94–98
[2023-05-04 06:16] LABS: Add Manual Diff / Slide Review NO; Basophils Absolute Auto 0 /uL (0-100); Basophils Percent Auto 0.1 % (0-2); Eosinophils Absolute Auto 0 /uL (0-450); Hematocrit 33.9 % (41-53); Hemoglobin 10.9 g/dL (13.5-17.5); Lymphocytes Absolute Auto 1200 /uL (1100-4500); Mean Corpuscular HGB Conc 32.3 % (30-36); Mean Corpuscular Hemoglobin 29.1 PG (26-34); Mean Corpuscular Volume 90.3 fL (80-100); Monocytes Absolute Auto 1000 /uL (0-900); Monocytes Percent Auto 8.5 % (3-14); Neutrophils Absolute Auto 9100 /uL (1500-7000); Neutrophils Percent Auto 80.4 % (50-75); Platelet Count 256 X10^3/uL (150-400); Red Blood Cell Count 3.75 X10^6/uL (4.5-5.9); Red Cell Distribution Width 14.1 % (11.6-14.8); White Blood Cell Count 11.3 X10^3/uL (4.5-11.0)
[2023-05-04 06:30] LABS: BUN Creatinine Ratio 58.7 (6-22); Blood Urea Nitrogen 71 mg/dL (9-20); Calcium 9.6 mg/dL (8.4-10.2); Carbon Dioxide 39 mmol/L (22-32); Chloride 97 mmol/L (98-107); Estimated Glomerular Filt Rate 59 mL/min (>60); Glucose 120 mg/dL (80-110); HEMOLYSIS < 15 (0-50); Potassium 5.1 mmol/L (3.4-5.1); Sodium 141 mmol/L (137-145)
[2023-05-04] MEDS: ALBUTEROL 2.5 MG/3 ML NEB (ADULT) INH ×3 (07:22→20:05)
[2023-05-04] MEDS: BUDESONIDE 0.5 MG/2 ML NEB INH ×2 (07:22→20:05)
[2023-05-04] MEDS: ENOXAPARIN 40 MG/0.4 ML SYRINGE SUBCUT (08:07)
[2023-05-04] MEDS: ASPIRIN 81 MG CHEW TAB PO (08:07)
[2023-05-04] MEDS: FOLIC ACID 1 MG TABLET PO (08:07)
[2023-05-04] MEDS: METOPROLOL ER 25 MG TABLET 50 MG PO ×2 (08:08→20:26)
[2023-05-04] MEDS: GABAPENTIN 300 MG CAPSULE PO ×3 (08:08→20:28)
[2023-05-04] MEDS: MULTIVITAMIN 1 TABLET 1 TAB PO (08:08)
[2023-05-04] MEDS: polyethylene glycoL 3350 17 GM POWD.PACK PO (08:08)
[2023-05-04] MEDS: OSELTAMIVIR 75 MG CAPSULE PO (08:08)
[2023-05-04] MEDS: predniSONE 20 MG TABLET 40 MG PO (08:09)
--- NOTE | 2023-05-04 08:10 | PM.DS.1 ---
History of Present Illness History of Present Illness Chief complaint: SOB/Lung CA on NRB Narrative: Jaundice an 87-year-old male with a past medical history current lung cancer previous history of lung cancer congestive heart failure coronary artery disease chronic renal failure hypertension hyperlipidemia and obesity presents to the emergency department with shortness of breath. Patient is complaining of not feeling well for about 1 week. Says he began with cough and runny nose which progressed to increasing weakness and then difficulty with breathing. Patient states it got so bad that he ended up in the emergency department. He describes his cough is nonproductive. His shortness of breath is severe. He denies any chest pain. He is weak enough that he feels like he can fall but he has not. Patient has no complaints of headache or abdominal pain. Patient has had decreased oral intake fluids as well as food. Patient denies any recent blood in his bowel movements or urination. Urine stream has been weak. Patient knows he is at [facility]. He is unsure the day of the week but he knows the month. He does recognize me. Discharge Providers Provider Date of admission: 04/29/23 12:36 Discharge Date: 05/05/23 Primary care physician: Jeffrey Jennings MD Consults: 04/29/23 12:56 Consult to Discharge Planning Routine Comment: 04/29/23 12:57 Consult to Dietitian, Adult Routine Comment: Reason For Exam: malnutrtion 04/29/23 14:05 Consult to Tele-business objects Routine Comment: Consulting Provider: Becky [employer] Reason for consultation: Orthopedic Designer services 04/30/23 09:07 Consult to Physical Therapy Evaluate & Treat Comment: Physician Instructions: Evaluate and Treat 05/03/23 14:28 Consult to Home Health Routine Comment: Lung CA, Influenza A, Pneumonia Reason For Exam: Set up HH RN/PT/OT/PUBLIC ADDRESS TECHNICIAN for d/c to home when stable Discharge provider: Jeffrey Jennings MD Summary Hospital Course Hospital Course: Acute hypoxic respiratory failure-patient with respiratory failure multifactorial etiology. Pneumonia, exacerbation of COPD, influenza. Also congestive heart failure with acute diastolic dysfunction with fluid overload. Patient treated with BiPAP initially and then nasal cannula oxygen. Patient given prednisone and nebulizers. Also started on IV antibiotics and Tamiflu. Patient also had significant diuresis pain. He was started on IV Lasix 80 mg 3 times a day and gradually weaned off IV Lasix and converted to oral and then stopped. Patient required ICU level care for the 1st 2 days. Had gradual improvement of his hypoxia. And ultimately had weaning off of his oxygen. Patient has home oxygen available at home. At home he will monitor his respiratory status. Do daily weights. He will continue with oral antibiotics with Ceftin. And once a day IV Lasix. Acute diastolic congestive heart failure. Patient had congestive heart failure with repeat echocardiogram on the hospital. Required hospitalization with Lasix IV gradually reduced to oral Lasix. He will go home with oral Lasix his beta-amilcar if he tolerates his diuretic and beta-amilcar would probably recommend starting him on an AMIRAH inhibitor as well. Pneumonia bilateral. Community-acquired pneumonia. Home with [facility]. AFib with RVR. Reviewed his echo in February 27. Rate is better controlled now. Heart rate is much better he will be continued on his warfarin he has not been started back on anticoagulation due to his significant risk of falls. Influenza A. Treated with Tamiflu Acute kidney injury. Improved Alcohol misuse patient with alcohol misuse disorder. Patient had mild withdrawal during the hospital. Encouraged no alcohol use at home. 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 IV steroids antibiotics nebulizers. Patient is back to baseline Lung cancer. Patient with a history of lung cancer with previous lung surgery for removal. Patient now has a recurrence of a new primary lung cancer. This is being monitored by Oncology recent PET scan confirms this. Patient declines wanting chemotherapy. In a very poor surgical candidate. Have discussed with oncology multiple times about options for treatment. We discussed hospice previously with Dr. Jennings and patient declines at this time. Coronary artery disease. No signs of acute decompensation. No signs of chest pain. Continue with beta-amilcar statin. Hypertension. Overall blood pressure is stable. Increased metoprolol to 50 b.i.d. to treat AFib with RVR. Blood pressure better controlled. We will monitor closely. Hyperlipidemia patient will be placed on a statin Spinal stenosis with chronic low back pain. Patient will be restarted on his gabapentin. Be given Tylenol and or hydrocodone as needed for his pain. Constipation MiraLax patient has had bowel movements Exam Vital Signs (past 8 hours): - 05/04/23 01:22 05/04/23 04:23 05/04/23 07:22 Temperature 97.2 F L 96.1 F L Pulse Rate 94 H 90 84 Respiratory Rate 22 22 20 Blood Pressure 127/75 123/84 Pulse Oximetry 95 94 95 Oxygen Delivery Method Nasal Cannula Humidification Oxygen Flow Rate 2 2 2 Fraction of Inspired Oxygen 28 05/04/23 08:08 Temperature Pulse Rate Respiratory Rate Blood Pressure 123/84 Pulse Oximetry Oxygen Delivery Method Oxygen Flow Rate Fraction of Inspired Oxygen Fraction of Inspired Oxygen 28 SaO2/FiO2 Ratio 339 Oxygen Delivery Method Nasal Cannula,Humidification Oxygen Flow Rate 2 Narrative Exam Narrative: Gen.: Alert no apparent distress on nasal cannula oxygen HEENT: Pupils equal round and reactive Cardio: S1-S2 irregular rate and rhythm with systolic murmur Respiratory: [Lungs are clear to auscultation no wheezes or crackles normal respiratory effort.] Abdomen: Soft obese Extremities: Trace edema Objective Labs 05/04/23 05:30 05/04/23 05:30 Labs: Laboratory Results - last 24 hr 05/04/23 05:30 WBC 11.3 H RBC 3.75 L Hgb 10.9 L Hct 33.9 L MCV 90.3 MCH 29.1 MCHC 32.3 RDW 14.1 Plt Count 256 Neut % (Auto) 80.4 H Lymph % (Auto) 11.0 L [place] % (Auto) 8.5 Eos % (Auto) 0.0 L Baso % (Auto) 0.1 Neut # (Auto) 9100 H Lymph # (Auto) 1200 [place] # (Auto) 1000 H Eos # (Auto) 0 Baso # (Auto) 0 Sodium 141 Potassium 5.1 Chloride 97 L Carbon Dioxide 39 H BUN 71 H Creatinine 1.21 Estimated GFR 59 L BUN/Creatinine Ratio 58.7 H Glucose 120 H Calcium 9.6 PFSH Medical History Alcohol abuse History of lung cancer Moderate aortic stenosis by prior echocardiogram Acute respiratory failure with hypoxia COPD (chronic obstructive pulmonary disease) Vision disorder Gout (~2011) Chronic back pain (~1959) History of urinary incontinence Pancreatitis (~2005) Lung cancer (~2007) Surgical History Anesthesia History of lung surgery (~03/2007) Family History Father Heart disease Grandmother Age: 83 Ovarian cancer, unspecified laterality Mother Diabetes mellitus Sister No problems noted. Social History marital status: household members: significant other and friend(s) Smoking Status: Current every day smoker alcohol intake: current substance use type: does not use Discharge Plan Discharge Plan Patient Disposition: Home Provider Discharge Comment: Follow-up with Dr. Jennings in 10 days Discharge orders & Medications Prescriptions: New cefdinir 300 mg capsule 300 mg PO BID Qty: 10 0RF furosemide [Lasix] 40 mg tablet 40 mg PO DAILY Qty: 30 0RF Continued fluticasone propion-salmeterol 250-50 mcg/dose blister with device 1 inh INHALATION BID Qty: 180 3RF (DME) Disabled Parking See Rx Instructions .ROUTE .MEDSUPPLY Qty: 1 0RF Rx Instructions: I find this patient to be medically disabled and qualified for Disabled Parking as indicated, and signed, on the Accompanying Disabled Parking Application for Individuals metoprolol succinate 25 mg tablet extended release 24 hr 25 mg PO BID Qty: 180 3RF albuterol sulfate [Ventolin HFA] 90 mcg/actuation HFA aerosol inhaler 2 puff INHALATION Q4H PRN (Reason: Shortness Of Breath) Qty: 8.5 3RF Rx Instructions: 2 puffs every 4-6 hours as needed for shortness of breath - use with spacer atorvastatin 20 mg tablet 20 mg PO ONCE PM Qty: 90 3RF gabapentin 300 mg capsule 300 mg PO 3XD Qty: 90 3RF hydrocodone-acetaminophen 5-325 mg tablet 1 tab PO BID Qty: 60 0RF Rx Instructions: Take one tab 2 times daily for hip and back pain. Avoid alcohol when using this medication aspirin 81 mg tablet,chewable 81 mg PO DAILY diphenhydramine HCl [Benadryl] 25 mg Capsule 50 mg PO BEDTIME acetaminophen 325 mg Tablet 650 mg PO Q6H PRN (Reason: Fever/Mild Pain (1-3)) Qty: 30 0RF multivitamin with folic acid [Tab-A-Aranza] 400 mcg Tablet 1 tab PO DAILY Qty: 30 0RF Follow up/Referrals: Jeffrey Jennings MD [Primary Care Provider] - Visit Report/Discharge Packet Stand Alone Forms: Patient Portal/API, Stroke Signs & Symptoms Discharge Data Primary Care Provider: Jeffrey Jennings VTE Deep Vein Thrombosis/Pulmonary Embolism Present on Admission: No
[2023-05-04] MEDS: predniSONE 20 MG TABLET PO (10:56)
[2023-05-04] MEDS: CEFDINIR 300 MG CAPSULE PO ×2 (10:56→20:26)
--- NOTE | 2023-05-04 11:06 | CM.DPC ---
Addendum entered by ALYSHA Nova 05/04/23 11:43: ADD: Return call from Adi [facility], after getting a vm from previous SW about pt's admission to the hospital and somewhat tenuous home situation and historically pt declining SNF, increased care, or Hospice. Updated Adi on plan for pt's discharge and Adi will attempt to see pt bedside today prior to discharge. BF Original Note: DCP Discharge Home with HH Per MD, pt is medically stable to discharge home today with new HH referral and no identified barriers to discharge. SW faxed discharge summary, F2F and HH orders to [facility] to review and alerted them to pt discharge. SW provided [facility] brochure to RN to provide with discharge pwk and instructions. Plan: Patient to d/c home today via POV and [facility] to follow. ALYSHA Nova
--- NOTE | 2023-05-04 11:20 | PT.IPTN ---
Current Diagnoses Acute diastolic (congestive) heart failure (04/29/23) Influenza due to other identified influenza virus with other respiratory manifestations (04/29/23) Pneumonia, unspecified organism (04/29/23) Acute respiratory failure with hypoxia (04/29/23) Physical Therapy Treatment Note M2 PT-IP Current Condition Start: 04/30/23 13:20 Freq: NEEDED Status: Active Protocol: Document 04/30/23 13:20 MB (Rec: 04/30/23 13:37 MB [id number]) Physical Therapy Current Condition Current Condition Evaluation Date 04/30/23 Treatment Diagnosis Influenza A M3 PT-IP Subjective Start: 04/30/23 13:20 Freq: NEEDED Status: Active Protocol: Document 05/04/23 11:30 NM (Rec: 05/04/23 11:58 NM [id number]) Subjective Physical Therapy Visit Type Type Treatment Note Visit Start Time 10:55 Visit Stop Time 11:20 Physical Therapy Visit Comments Patient Comments Pt agrees to participate in PT today. Reports fatigue, wants to wait a day to go home so my neighbor will be there to help. M4 PT-IP Mobility and Gait Start: 04/30/23 13:20 Freq: NEEDED Status: Active Protocol: Document 05/04/23 11:30 NM (Rec: 05/04/23 11:58 NM [id number]) PT-Bed Mobility Assessment Supine to Sit Supine to Sit Standby Assistance Scooting Scooting to Edge of Bed Standby Assistance PT-Transfer Assessment Sit to and From Stand Sit to and from Stand Contact Guard Assistance Equipment Transfer Assistive Device Gait Belt,Front Wheeled Walker Orthotic/Prosthetic Devices or Brace: No Transfers Transfer Destination Chair Transfer Technique Taking a few steps Transfer Ability Level of Assist Contact Guard Assistance,1 Person Assistance,Use of Upper Extremities Comments Mobility Comments Pt in L sidelying in bed upon PT arrive, agrees to participate in PT today, on 2L O2. SBA for bed mobility, sidelying to sit on EOB with HOB elevated. Pt is CGA for sit<>stand from chair/bed to FWW, performed several times during treatment. Requires UE assist, cues for safety related to oxygen and FWW management. Pt ambulated 2x20 ft to/from window and bed with FWW and CGA to steady initially and for FWW management. Brief seated rest, sit <>stand with CGA to FWW, then 20 ft with FWW to window and 10 ft to chair. PT cueing pt for upright posture, stand closer to FWW for safety. Requires seated rest breaks due to SOB during gait and between transfers. PT and pt address standing balance to FWW during dressing as pt needed to change brief during session; CGA to steady with pt using 1 hand on FWW for balance and cues for safety. Pt left sitting upright in chair with call light within reach, chair alarm activated, RN notified. Gait Assessment Gait Gait Assistance Required: Contact Guard Assist Distance (Feet) 40 Able to Maintain Weight Bearing Status Yes During Gait Assistive Devices Assistive Device Gait Belt,Front Wheeled Walker Orthotic/Prosthetic Devices or Brace: No Gait Deviations General Gait Pattern Decreased Stride Length, Decreased Feet Clearance, Flexed Trunk,Wide Based Gait Factors Limiting Gait Function Factors Limiting Gait Function Decreased Activity Tolerance, Decreased Strength,Difficulty Following Directions,Poor Balance,Poor Safety Awareness, Respiratory Distress Comments Gait Comments see mobility comments Stair Climbing Assessment Comments Stair Climbing Comments Pt declined to attempt stairs, reports too fatigued PT-Balance Assessment Sitting Balance and Reactions Static Sitting Balance Ability Good Dynamic Sitting Balance Ability Fair Standing Balance and Reactions Static Standing Balance Ability Fair Dynamic Standing Balance Ability Fair Device Used FWW M5 PT-IP Objective Assessments Start: 04/30/23 13:20 Freq: NEEDED Status: Active Protocol: Document 04/30/23 13:20 MB (Rec: 04/30/23 13:37 MB [id number]) Orientation Orientation/Cognition Level of Alertness Alert Orientation Name,Age,Birthday,Month,Date, Year,Day of Week,Place, Situation Language Function Ability No Deficits Noted Safety Awareness Decreased Safety Awareness Memory Description No Deficits Noted Gross Range of Motion Upper Extremity ROM Impairments Defer to OT Lower Extremity ROM Assessment Within Functional Limits Impairments Increased abdominal soft tissue limits some hip mobility Strength Lower Extremity Strength Assessment Within Functional Limits M6 PT-IP Treatment Start: 04/30/23 13:20 Freq: NEEDED Status: Active Protocol: Document 05/04/23 11:30 NM (Rec: 05/04/23 11:58 NM [id number]) Physical Therapy Treatment Education Education Provided Safety M7 PT-IP Assessment and Plan Start: 04/30/23 13:20 Freq: NEEDED Status: Active Protocol: Document 05/04/23 11:30 NM (Rec: 05/04/23 11:58 NM [id number]) PT Summary Assessment and Plan Summary Impairments Balance,Bed Mobility,Transfers ,Gait,Activity Tolerance Progress Towards Goals Slow Progress due to Medical Issues,Slow Progress due to Activity Tolerance Assessment Summary Pt continues to be limited by activity tolerance and weakness. Pt is SBA for bed mobility, CGA for transfers and household gait distances using FWW, primarily for balance and due to BLE weakness. He requires frequent cues for safety related to FWW management. PT continues to recommend home with assistance and HHPT vs SNF. Pt would benefit from PT for BLE strengthening, gait and transfer training. Goals Bed Mobility Goal Independent Transfer Goal Standby Assistance,Front Wheeled Walker Gait Goal Standby Assistance,Front Wheel Walker Gait Distance 25 Other Goals Pt will ascend and descend 5 steps with rail and no more than CGA to allow safe home entrance. Days to Meet Goals 10 Frequency of Treatment Frequency Of Treatment Once a Day Treatment Plan Physical Therapy Treatment Plan Bed Mobility Training,Transfer Training,Gait Training, Therapeutic Exercise,Balance Retraining,Discharge Planning, Neuromuscular Re-ed Weight Bearing Status Weight Bearing Status Weight Bear as Tolerated Recommendations To Nursing Amount of Assist Needed 1 Person Assist Discharge Recommendations PT Discharge Recommendations Home with 29/09 Assist Available,Home Health,SNF Rehab,Home vs SNF Transportation Needs at Discharge Private Vehicle,Wheelchair/ Cabulance
[2023-05-04] MEDS: ATORVASTATIN 20 MG TABLET PO (20:26)
[2023-05-04] MEDS: MELATONIN 3 MG TABLET 9 MG PO (21:19)
[2023-05-05] VITALS: BP 101/56; PULSE 71; RESP 18; TEMP 35.9; O2SAT 99
[2023-05-05] MEDS: ACETAMINOPHEN 325 MG TABLET 650 MG PO (05:42)
[2023-05-05 05:48] VITALS: BP 110/57; PULSE 63; RESP 19; TEMP 35.9; O2SAT 98
[2023-05-05 07:32] VITALS: PULSE 100; RESP 20; O2SAT 100
[2023-05-05] MEDS: ALBUTEROL 2.5 MG/3 ML NEB (ADULT) INH (07:47)
[2023-05-05] MEDS: BUDESONIDE 0.5 MG/2 ML NEB INH (07:47)
--- NOTE | 2023-05-05 08:02 | P.PN_ITS ---
Subjective Subjective Date Patient Seen: 05/05/23 Time Patient Seen: 08:02 Interval history: Patient seen this morning. Discharge was held yesterday. Still little bit wobbly on his feet. Still requiring some oxygen at home. It need 1 more day in the hospital. Anticipating going home today with home health. Partners also home to be able to lean on to help take care of him. Patient was able to walk 30 ft yesterday with a walker. Says his cough is much better. He has a good appetite. Taking his inhalers. We reviewed his discharge medication with him at home. He needs to supervisor opening and picking an antibiotic and furosemide. He says that he can do this with assistance of his partner. Exam Vital Signs (past 8 hours): - 05/05/23 05:48 05/05/23 07:32 Temperature 96.7 F L Pulse Rate 63 100 H Respiratory Rate 19 20 Blood Pressure 110/57 L Pulse Oximetry 98 100 Oxygen Delivery Method Nasal Cannula Oxygen Flow Rate 0 2 Fraction of Inspired Oxygen 28 SaO2/FiO2 Ratio 339 Oxygen Delivery Method Nasal Cannula Oxygen Flow Rate 2 Narrative Exam Narrative: Gen.: Alert short of breath HEENT: Pupils equal round and reactive Cardio: S1-S2 regular rate and rhythm Respiratory: Decreased breath sounds throughout lungs. With some scant rhonchi Abdomen: Soft nontender no rebound or guarding no liver spleen enlargement no appreciable hernias Extremities: Mild trace edema Objective Labs 05/04/23 05:30 05/04/23 05:30 [facility] Medical History Alcohol abuse History of lung cancer Moderate aortic stenosis by prior echocardiogram Acute respiratory failure with hypoxia COPD (chronic obstructive pulmonary disease) Vision disorder Gout (~2011) Chronic back pain (~1959) History of urinary incontinence Pancreatitis (~2005) Lung cancer (~2007) Surgical History Anesthesia History of lung surgery (~03/2007) Family History Father Heart disease Grandmother Age: 83 Ovarian cancer, unspecified laterality Mother Diabetes mellitus Sister No problems noted. Social History marital status: household members: significant other and friend(s) Smoking Status: Current every day smoker alcohol intake: current substance use type: does not use Assessment & Plan Assessment and plan (1) Influenza A: Status: Acute Plan Acute hypoxic respiratory failure-patient with respiratory failure multifactorial etiology. Pneumonia, exacerbation of COPD, influenza. Continue IV antibiotics, Tamiflu and O2 support. Currently on nasal cannula oxygen 2 L sats are doing okay. Not known to be a significant CO2 retainer Acute diastolic congestive heart failure. Patient producing less diuresis with IV Lasix. Stable now on oral Lasix. Will decrease from 40 mg to 20 mg due to increasing BUN and suspected appropriate diuresis. Negative fluid balance for the last few days. Kidney function has gone up just a little bit. Taking good p.o. intake. Pneumonia bilateral. Community-acquired pneumonia. AFib with RVR. Influenza A. Acute kidney injury. Alcohol misuse patient with alcohol misuse disorder. Chronic obstructive pulmonary disease with emphysematou Lung cancer. Coronary artery disease. Hypertension. Hyperlipidemia Spinal stenosis Constipation Patient's medical condition chronic stable state. He will be discharged home today with home health reviewed medication on discharge. His discharge was held yesterday mainly optimizing a safe discharge plan. Patient to go home this afternoon. His partners there to provide assistance with him he was able to walk 30 ft with a walker. He will have a follow-up appointment in my office in 7-10 days. Quality VTE Deep Vein Thrombosis/Pulmonary Embolism Present on Admission: No
[2023-05-05] MEDS: ASPIRIN 81 MG CHEW TAB PO (08:07)
[2023-05-05 08:08] VITALS: PULSE 100
[2023-05-05] MEDS: polyethylene glycoL 3350 17 GM POWD.PACK PO (08:08)
[2023-05-05] MEDS: FOLIC ACID 1 MG TABLET PO (08:08)
[2023-05-05] MEDS: METOPROLOL ER 25 MG TABLET 50 MG PO (08:08)
[2023-05-05] MEDS: CEFDINIR 300 MG CAPSULE PO (08:08)
[2023-05-05] MEDS: MULTIVITAMIN 1 TABLET 1 TAB PO (08:08)
[2023-05-05] MEDS: GABAPENTIN 300 MG CAPSULE PO (08:08)
[2023-05-05] MEDS: predniSONE 20 MG TABLET PO (08:08)
[2023-05-05] MEDS: ENOXAPARIN 40 MG/0.4 ML SYRINGE SUBCUT (08:08)
[2023-05-05 09:00] VITALS: BP 106/75; PULSE 89; PULSE 91; RESP 20; TEMP 36; O2SAT 97
--- NOTE | 2023-05-05 09:38 | CM.DPNOTE ---
DCP Note FLAVOR ROOM WORKER reviewed EMR. Per chart review, dc order in for home with HH and sig other support. FLAVOR ROOM WORKER spoke with Flower at [facility]. Confirm they have everything (f2f/order/dc sum). Confirm they will reach out to schedule him soon. Per RN, pt having BM and then will go home with sig other. No additional CM needs. Plan: home with and [facility]. CM team will continue to follow as needed. ALYSHA Ahuja
--- NOTE | 2023-05-05 10:12 | PT.IPTN ---
Current Diagnoses Acute diastolic (congestive) heart failure (04/29/23) Influenza due to other identified influenza virus with other respiratory manifestations (04/29/23) Pneumonia, unspecified organism (04/29/23) Acute respiratory failure with hypoxia (04/29/23) Physical Therapy Treatment Note M2 PT-IP Current Condition Start: 04/30/23 13:20 Freq: NEEDED Status: Active Protocol: Document 04/30/23 13:20 MB (Rec: 04/30/23 13:37 MB [id number]) Physical Therapy Current Condition Current Condition Evaluation Date 04/30/23 Treatment Diagnosis Influenza A M3 PT-IP Subjective Start: 04/30/23 13:20 Freq: NEEDED Status: Active Protocol: Document 05/05/23 09:45 MB (Rec: 05/05/23 10:12 MB [id number]) Subjective Physical Therapy Visit Type Type Treatment Note Visit Start Time 09:55 Visit Stop Time 10:00 Physical Therapy Visit Comments Patient Comments Pt is agreeable to PT. He jokes that he is waiting for a to go abattoir supervisor or nurse to take home with him at d/c. M4 PT-IP Mobility and Gait Start: 04/30/23 13:20 Freq: NEEDED Status: Active Protocol: Document 05/05/23 09:45 MB (Rec: 05/05/23 10:12 MB [id number]) PT-Transfer Assessment Sit to and From Stand Sit to and from Stand Standby Assistance,1 Person Assistance,Use of Upper Extremities Equipment Transfer Assistive Device Gait Belt,Front Wheeled Walker Orthotic/Prosthetic Devices or Brace: No Transfer Ability Level of Assist Standby Assistance,1 Person Assistance,Use of Upper Extremities Comments Mobility Comments Pt on 1L O2 and no pulse ox available in the room once PT inside and gowned up. Dyspnea scale used for exertion and pt is 1/4 at rest and 4/4 after short gait and three trials of one step once back in the chair. Gait Assessment Gait Gait Assistance Required: Contact Guard Assist,1 Person Assist Distance (Feet) 10 Able to Maintain Weight Bearing Status Yes During Gait Assistive Devices Assistive Device Gait Belt,Front Wheeled Walker Orthotic/Prosthetic Devices or Brace: No Gait Deviations General Gait Pattern Decreased Stride Length, Decreased Feet Clearance, Flexed Trunk,Wide Based Gait Factors Limiting Gait Function Factors Limiting Gait Function Decreased Activity Tolerance, Decreased Strength,Difficulty Following Directions,Poor Balance,Poor Safety Awareness, Respiratory Distress Comments Gait Comments Pt tends to push walker away or to the side when he gait trains 10' x2 from the chair to the step and back. Stair Climbing Assessment Evaluation Level of Assist On Stairs Contact Guard Assistance,1 Person Assistance Devices Stair Climbing Assistive Devices Front Wheel Walker Technique/Endurance Stair Climbing Direction Ascend and Descend Stair Climbing Technique Step to Step Number of Steps Climbed 1 Stair Climbing Set # Repetitions (reps) 3 Comments Stair Climbing Comments One step brought to room because pt cannot leave the room d/t droplet precautions. Step placed against the wall and to the side of the sink so that pt can use sink for UE support as he has a wall on one said and rail on the other at home. He tends not to follow PT's commands and tends to push the RW to the left to the side. He requires CGA to ascend and descend the step 3 times with hand on sink or wall. He ascends forwards once and backwards twice. PT must hold walker so that it does not scoot forward so he does not lose balance to descend. PT-Balance Assessment Sitting Balance and Reactions Static Sitting Balance Ability Good Dynamic Sitting Balance Ability Fair Standing Balance and Reactions Static Standing Balance Ability Fair Dynamic Standing Balance Ability Fair Device Used FWW M5 PT-IP Objective Assessments Start: 04/30/23 13:20 Freq: NEEDED Status: Active Protocol: Document 04/30/23 13:20 MB (Rec: 04/30/23 13:37 MB [id number]) Orientation Orientation/Cognition Level of Alertness Alert Orientation Name,Age,Birthday,Month,Date, Year,Day of Week,Place, Situation Language Function Ability No Deficits Noted Safety Awareness Decreased Safety Awareness Memory Description No Deficits Noted Gross Range of Motion Upper Extremity ROM Impairments Defer to OT Lower Extremity ROM Assessment Within Functional Limits Impairments Increased abdominal soft tissue limits some hip mobility Strength Lower Extremity Strength Assessment Within Functional Limits M6 PT-IP Treatment Start: 04/30/23 13:20 Freq: NEEDED Status: Active Protocol: Document 05/05/23 09:45 MB (Rec: 05/05/23 10:12 MB [id number]) Physical Therapy Treatment Education Education Provided Safety M7 PT-IP Assessment and Plan Start: 04/30/23 13:20 Freq: NEEDED Status: Active Protocol: Document 05/05/23 09:45 MB (Rec: 05/05/23 10:12 MB [id number]) PT Summary Assessment and Plan Potential Rehabilitation Potential Fair Status of Condition at Evaluation Evolving Summary Impairments Balance,Bed Mobility,Transfers ,Gait,Activity Tolerance Progress Towards Goals Slow Progress due to Medical Issues,Slow Progress due to Activity Tolerance Assessment Summary Sushant was able to ascend and descend the step three times today, although he has decreased command-following and safety and 4/4 Dyspnea scale. Recommend CGA to get into the house at home, 24 hour assistance and services. His overall pulmonary presentation is poor and he con't to smoke at home . Goals Bed Mobility Goal Independent Transfer Goal Standby Assistance,Front Wheeled Walker Gait Goal Standby Assistance,Front Wheel Walker Gait Distance 25 Other Goals Pt will ascend and descend 5 steps with rail and no more than CGA to allow safe home entrance. Days to Meet Goals 10 Frequency of Treatment Frequency Of Treatment Once a Day Treatment Plan Physical Therapy Treatment Plan Bed Mobility Training,Transfer Training,Gait Training, Therapeutic Exercise,Balance Retraining,Discharge Planning, Neuromuscular Re-ed Weight Bearing Status Weight Bearing Status Weight Bear as Tolerated Recommendations To Nursing Amount of Assist Needed 1 Person Assist Discharge Recommendations PT Discharge Recommendations Home with 29/09 Assist Available,Home Health,SNF Rehab,Home vs SNF Transportation Needs at Discharge Private Vehicle,Wheelchair/ Cabulance
--- NOTE | 2023-05-05 11:49 | PC.NURSE ---
Discharge Note Patient A&O, VSS, RA, no complaints of pain/discomfort. Discharge packet reviewed with patient, all questions/concerns addressed. PIV discontinued. Patient assisted to dress and pack all belongings. Patient taken down via wheelchair to POV. Reminded patient to bean picker machine operator prescription at preferred pharmacy.
== END 2023-05-05 11:30 | disposition home health service (06) | DRG 193 ==
LOC: ED 12:03 → AC 12:37 → ICU 15:18 → AC 05-03 10:32
PROVIDERS: Family Medicine; Internal Medicine; Admitting Provider Family Medicine; Emergency Provider Emergency Medicine; Family Provider Family Medicine; PCP Family Medicine; Referring Provider Emergency Medicine; Visit Provider Family Medicine
DX: J18.9 Pneumonia, unspecified organism (principal); I50.31 Acute diastolic (congestive) heart failure; J96.01 Acute respiratory failure with hypoxia; J44.1 Chronic obstructive pulmonary disease with (acute) exacerbation; C34.91 Malignant neoplasm of unspecified part of right bronchus or lung; F17.210 Nicotine dependence, cigarettes, uncomplicated; J10.1 Influenza due to other identified influenza virus with other respiratory manifestations; I25.10 Atherosclerotic heart disease of native coronary artery without angina pectoris; I11.0 Hypertensive heart disease with heart failure; E78.5 Hyperlipidemia, unspecified; M48.061 Spinal stenosis, lumbar region without neurogenic claudication; K59.00 Constipation, unspecified; J43.9 Emphysema, unspecified; F10.90 Alcohol use, unspecified, uncomplicated; Z66 Do not resuscitate
CPT/HCPCS: 36415; 71045; 71275; 80048; 80053; 81001; 82550; 82805; 83605; 83735; 83880; 84145; 84484; 85025; 85610; 85730; 87040; 87633; 87797; 93005; 94640; 94660; 94760; 94762; 96365; 96367; 96375; 97116; 97161; 97530; 99223; 99233; 99285; 99291; C8929; J0136; J0696; J1650; J1940; J2060; J2919; J2930; J7613; Q9957; Q9967

== ENCOUNTER → 2023-07-22 10:56 | Outpatient (CLI) | payer MEDICARE, OTHER, SELFPAY ==
[2023-04-29 17:50] VITALS: BMI 36.2
[2023-05-01 03:03] VITALS: PULSE 65; RESP 20; O2SAT 94
[2023-06-18 11:45] VITALS: PULSE 65; RESP 20; O2SAT 94; BMI 36.2
--- NOTE | 2023-07-22 | DI.CT.S_ITS ---
PROCEDURE: CT CHEST WO CON INDICATIONS: malignant neoplasm of lung TECHNIQUE: Noncontrast 5 mm thick sections acquired from the pulmonary apices to the posterior costophrenic angles. 1 mm lung window, 5 mm thick coronal and sagittal and 7 mm axial MIP reformats were then acquired. For radiation dose reduction, the following was used: automated exposure control, adjustment of mA and/or kV according to patient size. COMPARISON: [facility], CT, CT ANGIO CHEST PE PROTOCOL, 04/29/2023, 11:23. [facility], NM, NM PET CT FUSION SKULL 2 THIGH, 10/08/2022, 10:49. [facility], CT, CT CHEST WO CON, 08/18/2022, 11:39. FINDINGS: Image quality: Diagnostic. Lower Neck: No enlarged lymph nodes. Thyroid: No thyroid nodules which require sonographic follow up, per consensus guidelines. Axillae: No enlarged lymph nodes. Chest Wall: Unremarkable. Bones: Unremarkable. Lungs and Pleura: Advanced biapical bullous emphysematous change is again noted. The known FDG avid right apical mass is not significantly changed from the most recent previous study. On the April 2023 study on image 74 series 5 it measured 2.7 x 1.0 cm. On current image 70 of series 3 it measures 2.6 x 1.0 cm. Remote left upper lobectomy. There is a moderate left pleural effusion with lobulations. This is increased. Small right pleural effusion. No focal acute airspace consolidation. Heart: Mild cardiomegaly. No pericardial effusion. Moderate to severe coronary artery calcifications. Thoracic Vessels: The aorta and pulmonary arteries demonstrate normal size. Mediastinum and Nicky: No enlarged lymph nodes. Esophagus: No wall thickening. No hiatal hernia. Upper Abdomen: Visualized upper abdomen solid organs and bowel loops appear normal. IMPRESSION: 1. Severe underlying emphysematous change with biapical predominance, remote left upper lobectomy. 2. Known right apical mass, based on intense activity on PET-CT, is stable compared to the most recent previous study, measuring 2.7 x 1.0 cm. 3. Interval increase in left pleural effusion, lobulated, moderate. 4. Mild cardiomegaly, moderate to severe coronary artery calcifications. Dictated by: Max Saravia M.D. on 07/22/2023 at 15:26 Approved by: Max Saravia M.D. on 07/22/2023 at 15:34
== END ==
PROVIDERS: Family Provider Family Medicine; PCP Family Medicine; Referring Provider Radiology Radiation Oncology; Visit Provider Radiology Radiation Oncology
DX: C34.11 Malignant neoplasm of upper lobe, right bronchus or lung (principal); J90 Pleural effusion, not elsewhere classified; I25.10 Atherosclerotic heart disease of native coronary artery without angina pectoris; I51.7 Cardiomegaly
CPT/HCPCS: 71250

== ENCOUNTER 2023-08-04 11:39 | Emergency (ER) | payer MEDICARE, OTHER, SELFPAY ==
[2023-06-18 11:45] VITALS: PULSE 65; RESP 20; O2SAT 94; BMI 36.2
[2023-08-04] VITALS (14 sets, daily range): BP systolic 98–142; BP diastolic 61–92; PULSE 108–128; RESP 16–28; TEMP 36.6; O2SAT 84–97; BMI 38.0
--- NOTE | 2023-08-04 11:44 | DI.RAD.S_ITS ---
PROCEDURE: XR CHEST 1V INDICATIONS: Shortness of breath TECHNIQUE: One view of the chest was acquired. COMPARISON: [facility], CT, CT CHEST WO CON, 07/22/2023, 11:08. [facility], CT, CT ANGIO CHEST PE PROTOCOL, 04/29/2023, 11:23. [facility], CR, XR CHEST 1V, 04/30/2023, 4:56. FINDINGS: Surgical changes and devices: Stable mediastinal and left hilar surgical clips. Lungs and pleura: Small bilateral pleural effusions. Increased bibasilar opacification. Mediastinum: Mediastinal contours appear normal. Heart size is normal. Bones and chest wall: No suspicious bony lesions. Overlying soft tissues appear unremarkable. IMPRESSION: Small bilateral pleural effusions. Bibasilar atelectasis or pneumonia. Dictated by: Adia Castillo MD, PhD on 08/04/2023 at 12:15 Approved by: Adia Castillo MD, PhD on 08/04/2023 at 12:17
[2023-08-04 11:52] LABS: Add Manual Diff / Slide Review NO; Basophils Absolute Auto 0 /uL (0-100); Basophils Percent Auto 0.8 % (0-2); Eosinophils Absolute Auto 100 /uL (0-450); Eosinophils Percent Auto 2.2 % (2-4); Hematocrit 33.1 % (41-53); Hemoglobin 10.2 g/dL (13.5-17.5); Lymphocytes Absolute Auto 800 /uL (1100-4500); Mean Corpuscular HGB Conc 30.7 % (30-36); Mean Corpuscular Hemoglobin 28.5 PG (26-34); Mean Corpuscular Volume 92.9 fL (80-100); Monocytes Absolute Auto 700 /uL (0-900); Monocytes Percent Auto 11.8 % (3-14); Neutrophils Absolute Auto 4200 /uL (1500-7000); Neutrophils Percent Auto 72.2 % (50-75); Platelet Count 175 X10^3/uL (150-400); Red Blood Cell Count 3.56 X10^6/uL (4.5-5.9); Red Cell Distribution Width 15.6 % (11.6-14.8); White Blood Cell Count 5.8 X10^3/uL (4.5-11.0)
[2023-08-04 11:59] LABS: INR 1.1 (0.9-1.3); Prothrombin Time 13.1 SECONDS (9.4-12.5)
--- NOTE | 2023-08-04 12:00 | ED.GENADULT ---
HPI - General Adult General Chief complaint: Shortness of Breath/Dyspnea Stated complaint: SOB AFIB RVR Time Seen by Provider: 08/04/23 11:43 Source: patient and EMS Mode of arrival: EMS History of Present Illness HPI narrative: Patient is an 88-year-old male. History of COPD is on oxygen at home at baseline normally at 3 L. is here for evaluation of progressively worsening shortness of breath specifically dyspnea on exertion over the past week to the point where he now is needing 5 L of oxygen by nasal cannula. He was also having lower extremity swelling. He does not have a history of heart failure. He denies fevers. No chest pain. He does have a productive cough. He does not use nebulizers at home but does use inhalers. He has been using his inhalers? all the time? no abdominal pain. No change in bowel habits. Has been prescribed Lasix in the past but does not feel like it is doing much. He was admitted to the hospital several months ago for COPD/emphysema/RSV and COVID. Related Data Home Medications Medication Instructions Recorded Confirmed aspirin 81 mg chewable tablet 81 mg PO DAILY 12/17/17 05/14/23 diphenhydramine HCl 25 mg capsule 50 mg PO BEDTIME 05/05/22 05/14/23 (Benadryl) Previous Rx's Medication Instructions Recorded acetaminophen 325 mg tablet 650 mg (2 x 325 mg) PO Q6H PRN 05/09/22 Fever/Mild Pain (1-3) #30 tabs multivitamin with folic acid 400 1 tab PO DAILY #30 tabs 05/09/22 mcg tablet (Tab-A-Aranza) Disabled Parking #1 ea 05/27/22 metoprolol succinate 25 mg 25 mg PO BID #180 tabs 09/22/22 tablet,extended release 24 hr albuterol sulfate 90 mcg/actuation 2 puff inhalation Q4H PRN 12/30/22 aerosol inhaler (Ventolin HFA) Shortness Of Breath #8.5 grams atorvastatin 20 mg tablet 20 mg PO ONCE PM #90 tabs 01/26/23 gabapentin 300 mg capsule 300 mg PO 3XD #90 caps 03/27/23 fluticasone 250 mcg-salmeterol 50 1 ea inhalation BID #180 ea 05/27/23 mcg/dose blistr powdr for inhalation hydrocodone 5 mg-acetaminophen 325 1 tab PO BID pain #60 tabs 06/18/23 mg tablet furosemide 40 mg tablet 40 mg PO DAILY #30 tabs 06/29/23 azithromycin 250 mg tablet 250 mg PO DAILY 4 days #4 tabs 08/04/23 furosemide 40 mg tablet (Lasix) 40 mg PO DAILY #30 tabs 08/04/23 prednisone 20 mg tablet 20 mg PO DAILY 7 days #7 tabs 08/04/23 Allergies Allergy/AdvReac Type Severity Reaction Status Date / Time No Known Drug Allergies Allergy Verified 06/18/23 11:22 Review of Systems Review of Systems ROS Unobtainable: All systems reviewed & are unremarkable except as noted in HPI and below Patient History Medical History Alcohol abuse History of lung cancer Moderate aortic stenosis by prior echocardiogram Acute respiratory failure with hypoxia COPD (chronic obstructive pulmonary disease) Vision disorder Gout (~2011) Chronic back pain (~1959) History of urinary incontinence Pancreatitis (~2005) Lung cancer (~2007) Surgical History Anesthesia History of lung surgery (~03/2007) Family History Father Heart disease Grandmother Age: 83 Ovarian cancer, unspecified laterality Mother Diabetes mellitus Sister No problems noted. Social History marital status: household members: significant other and friend(s) Smoking Status: Current every day smoker alcohol intake: current substance use type: does not use Smoking Status: Current every day smoker tobacco type: cigarettes alcohol intake frequency: 3 or more drinks per day Substance Use Type: does not use Exam Initial Vital Signs Initial Vital Signs: Vital Signs Temperature 98 F 08/04/23 11:50 Pulse Rate 118 H 08/04/23 11:50 Respiratory Rate 28 H 08/04/23 11:50 Blood Pressure 137/75 08/04/23 11:50 Pulse Oximetry 97 08/04/23 11:50 Oxygen Delivery Method Nasal Cannula 08/04/23 11:50 Oxygen Flow Rate 3 08/04/23 11:50 Const Other: Chronically ill-appearing HENMT Head: normal to inspection and normocephalic Resp Effort & Inspection: cough and tachypneic Auscultation: rales and rhonchi Cardio Rate: tachycardic Rhythm: abnormal rhythm GI Inspection: non-distended Neuro General: patient alert and patient awake Extrem General: edema Course Orders Ordered: ED Orders 08/04/23 11:35 Complete Blood Count AUTO DIFF Stat Comprehensive Metabolic Panel Stat Lipase Stat Magnesium Stat NT-proBNP (BNP-Adult 18+) Stat PTT Partial Thromboplastin Ted Stat Prothrombin Time INR Stat Troponin & CK Cardiac Panel Stat 08/04/23 11:44 XR chest 1V Stat EKG-12 Lead Stat 08/04/23 11:47 Respiratory Panel (Film Array) Stat 08/04/23 13:32 Troponin & CK Cardiac Panel Stat Discontinued Medications Albuterol/Ipratropium (Albuterol/Ipratropium 3 Ml Ampul) 3 ml INH NOW ONE Stop: 08/04/23 12:02 Last Admin: 08/04/23 12:15 Dose: 3 ml Documented By: CARIDAD Azithromycin 500 mg/ Dextrose 250 mls @ 250 mls/hr IV NOW ONE Stop: 08/04/23 12:02 Last Infusion: 08/04/23 14:37 Dose: Infused Documented By: Admin: 08/04/23 13:16 Dose: 250 mls/hr Documented By: Furosemide 60 mg/ Sodium (Chloride) 56 mls @ 112 mls/hr IV NOW ONE Stop: 08/04/23 12:02 Last Infusion: 08/04/23 13:17 Dose: Infused Documented By: Admin: 08/04/23 12:31 Dose: 112 mls/hr Documented By: [facility] Methylprednisolone (Methylprednisolone 125 Mg/2 Ml Vial) 125 mg IV NOW ONE Stop: 08/04/23 12:02 Last Admin: 08/04/23 12:09 Dose: 125 mg Documented By: Vital Signs Vital signs: Vital Signs - 8 hr 08/04/23 11:50 08/04/23 12:59 08/04/23 13:00 Temperature 98 F Pulse Rate 118 H 117 H 109 H Respiratory Rate 28 H 21 21 Blood Pressure 137/75 Pulse Oximetry 97 95 95 Oxygen Delivery Method Nasal Cannula Oxygen Flow Rate 3 08/04/23 13:01 08/04/23 13:01 08/04/23 13:30 Temperature Pulse Rate 122 H Respiratory Rate 19 24 Blood Pressure 101/83 Pulse Oximetry 94 88 L Oxygen Delivery Method Room Air Oxygen Flow Rate 08/04/23 13:33 08/04/23 13:33 08/04/23 13:39 Temperature Pulse Rate 114 H Respiratory Rate 25 H Blood Pressure 115/92 H Pulse Oximetry 88 L 91 Oxygen Delivery Method Room Air Nasal Cannula Oxygen Flow Rate 2 08/04/23 14:00 08/04/23 14:21 08/04/23 14:21 Temperature Pulse Rate 117 H 108 H Respiratory Rate 19 19 Blood Pressure 98/66 Pulse Oximetry 91 87 L Oxygen Delivery Method Oxygen Flow Rate 08/04/23 14:30 08/04/23 14:52 08/04/23 14:53 Temperature Pulse Rate 128 H 125 H Respiratory Rate 16 26 H Blood Pressure 142/72 H Pulse Oximetry 84 L 91 Oxygen Delivery Method Oxygen Flow Rate 3 3 Medical Decision Making Medical Records Medical records reviewed: Yes I reviewed the patient's medical records. Lab Data Lab results reviewed: Yes I reviewed the patient's lab results. 08/04/23 11:35 08/04/23 11:35 Labs: Lab Results 08/04/23 08/04/23 08/04/23 Range/Units 11:35 11:47 13:32 WBC 5.8 (4.5-11.0) X10^3/uL RBC 3.56 L (4.5-5.9) X10^6/uL Hgb 10.2 L (13.5-17.5) g/dL Hct 33.1 L (41-53) % MCV 92.9 (80-100) fL MCH 28.5 (26-34) PG MCHC 30.7 (30-36) % RDW 15.6 H (11.6-14.8) % Plt Count 175 (150-400) X10^3/uL Neut % (Auto) 72.2 (50-75) % Lymph % (Auto) 13.0 L (25-40) % Hudson % (Auto) 11.8 (3-14) % Eos % (Auto) 2.2 (2-4) % Baso % (Auto) 0.8 (0-2) % Neut # (Auto) 4200 (1230-2901) /uL Lymph # (Auto) 800 L (1942-3738) /uL Hudson # (Auto) 700 (0-900) /uL Eos # (Auto) 100 (0-450) /uL Baso # (Auto) 0 (0-100) /uL PT 13.1 H (9.4-12.5) SECONDS INR 1.1 (0.9-1.3) APTT 39 H (25.1-36.5) SECONDS Sodium 142 (137-145) mmol/L Potassium 4.7 (3.4-5.1) mmol/L Chloride 103 (98-107) mmol/L Carbon Dioxide 33 H (22-32) mmol/L BUN 54 H (9-20) mg/dL Creatinine 1.46 H (0.66-1.25) mg/dL Estimated GFR 47 L (>60) mL/min BUN/Creatinine Ratio 37.0 H (6-22) Glucose 136 H (80-110) mg/dL Calcium 9.0 (8.4-10.2) mg/dL Magnesium 2.0 (1.6-2.3) mg/dL Total Bilirubin 0.9 (0.2-1.3) mg/dL AST 33 (17-59) IU/L ALT 31 (<50) IU/L Alkaline Phosphatase 110 (38-126) U/L Total Creatine Kinase 71 70 (55-170) U/L Troponin I 0.017 0.016 (0.01-0.034) ng/mL NT-Pro-B Natriuret Pep 5640 H (<450) pg/mL Total Protein 7.0 (6.3-8.2) g/dL Albumin 4.0 (3.5-5.0) g/dL Globulin 3.0 (1.7-4.1) g/dL Albumin/Globulin Ratio 1.3 (1.0-2.8) Lipase 51 (23-300) U/L Chlamy pneumoniae PCR Not detected (Not Detect) Adenovirus (PCR) Not detected (Not Detect) B.parapertussis DNA PCR Not detected (Not Detecte) Coronavirus OC43 (PCR) Not detected (Not Detect) Coronavirus HKU1 (PCR) Not detected (Not Detect) Coronavirus 229E (PCR) Not detected (Not Detect) SARS-CoV-2 (PCR) Not detected (Not Detecte) Coronavirus NL63 (PCR) Not detected (Not Detect) Human Metapneumovir PCR Not detected (Not Detect) Influenza Type A (PCR) Not detected (Not Detect) Influenza Type B (PCR) Not detected (Not Detect) M. pneumoniae (PCR) Not detected (Not Detect) Parainfluenza 1 (PCR) Not detected (Not Detect) Parainfluenza 2 (PCR) Not detected (Not Detect) Parainfluenza 3 (PCR) Not detected (Not Detect) Parainfluenza 4 (PCR) Not detected (Not Detect) RSV (PCR) Not detected (Not Detect) Entero/Rhino (PCR) Not detected (Not Detect) Imaging Data Chest x-ray: Radiologist's Impression: PROCEDURE: XR CHEST 1V INDICATIONS: Shortness of breath TECHNIQUE: One view of the chest was acquired. COMPARISON: [facility], CT, CT CHEST WO CON, 07/22/2023, 11:08. [facility], CT, CT ANGIO CHEST PE PROTOCOL, 04/29/2023, 11:23. [facility], CR, XR CHEST 1V, 04/30/2023, 4:56. FINDINGS: Surgical changes and devices: Stable mediastinal and left hilar surgical clips. Lungs and pleura: Small bilateral pleural effusions. Increased bibasilar opacification. Mediastinum: Mediastinal contours appear normal. Heart size is normal. Bones and chest wall: No suspicious bony lesions. Overlying soft tissues appear unremarkable. IMPRESSION: Small bilateral pleural effusions. Bibasilar atelectasis or pneumonia. ECG Data Attestation: I personally reviewed and interpreted this ECG as follows: Interpretation: Atrial fibrillation Rate 112 Normal axis Normal QRS Normal QTC No ST T wave changes MDM Narrative Medical decision making narrative: Patient does have history and physical exam that is consistent with a COPD exacerbation. After steroids and breathing treatment here in the ER he reports that he is now back to his baseline. He ambulated around the emergency department at his baseline oxygen saturations. Will treat with antibiotics and also steroids. He also has peripheral edema. He has not clinically in heart failure. This peripheral edema is not necessarily new. He was on Lasix. For the next 7 days will have him double his Lasix. I did refill this prescription. Because he is on home oxygen and that he was back to his baseline there was no indication for admission to the hospital today. He was given return precautions follow-up instructions. He expressed understanding and agreement with plan. Discharge Plan Departure Patient Disposition: Home Clinical Impression: COPD exacerbation, Edema, peripheral Instructions: Chronic Obstructive Pulmonary Disease, DI for Peripheral Edema -- Bilateral Activity Restrictions/Additional Instructions: You were going to be on antibiotics (azithromycin) 1 time a day for the next 4 days. Your next dose will be tomorrow 08/05/2023. I am also going to put you on a steroid. This medication is called prednisone. You will take 1 tablet a day starting tomorrow (08/05/2023) for the next 7 days. Also for the next 7 days I would like you to increase your furosemide/Lasix. According to our record you were taking 40 mg a day. I refilled this prescription. Will have you take 2 tablets (80 mg) a day for the next 7 days and then you can go back to just 1 tablet a day. Contact your primary doctor for follow-up. Return to the emergency department for new or worsening symptoms. Prescriptions: New azithromycin 250 mg tablet 250 mg PO DAILY 4 Days Qty: 4 0RF Rx Instructions: start on day 2 of therapy prednisone 20 mg tablet 20 mg PO DAILY 7 Days Qty: 7 0RF furosemide [Lasix] 40 mg tablet 40 mg PO DAILY Qty: 30 0RF No Action (DME) Disabled Parking See Rx Instructions .ROUTE .MEDSUPPLY Qty: 1 0RF Rx Instructions: I find this patient to be medically disabled and qualified for Disabled Parking as indicated, and signed, on the Accompanying Disabled Parking Application for Individuals metoprolol succinate 25 mg tablet extended release 24 hr 25 mg PO BID Qty: 180 3RF albuterol sulfate [Ventolin HFA] 90 mcg/actuation HFA aerosol inhaler 2 puff INHALATION Q4H PRN (Reason: Shortness Of Breath) Qty: 8.5 3RF Rx Instructions: 2 puffs every 4-6 hours as needed for shortness of breath - use with spacer atorvastatin 20 mg tablet 20 mg PO ONCE PM Qty: 90 3RF gabapentin 300 mg capsule 300 mg PO 3XD Qty: 90 3RF fluticasone propion-salmeterol 250-50 mcg/dose blister with device 1 ea inhalation BID Qty: 180 3RF furosemide 40 mg tablet 40 mg PO DAILY Qty: 30 3RF aspirin 81 mg tablet,chewable 81 mg PO DAILY hydrocodone-acetaminophen 5-325 mg tablet 1 tab PO BID Qty: 60 0RF Rx Instructions: Take one tab 2 times daily for hip and back pain. Avoid alcohol when using this medication diphenhydramine HCl [Benadryl] 25 mg Capsule 50 mg PO BEDTIME acetaminophen 325 mg Tablet 650 mg PO Q6H PRN (Reason: Fever/Mild Pain (1-3)) Qty: 30 0RF multivitamin with folic acid [Tab-A-Aranza] 400 mcg Tablet 1 tab PO DAILY Qty: 30 0RF Referrals: Jeffrey Jennings MD [Primary Care Provider] - Stand Alone Forms: Patient Portal/API
[2023-08-04 12:01] LABS: PTT Partial Thromboplastin Tim 39 SECONDS (25.1-36.5)
[2023-08-04 12:04] LABS: Alanine Aminotransferase 31 IU/L (<50); Albumin Globulin Ratio 1.3 (1.0-2.8); Alkaline Phosphatase 110 U/L (38-126); Aspartate Aminotransferase 33 IU/L (17-59); Bilirubin Total 0.9 mg/dL (0.2-1.3); Blood Urea Nitrogen 54 mg/dL (9-20); Carbon Dioxide 33 mmol/L (22-32); Chloride 103 mmol/L (98-107); Creatine Kinase 71 U/L (55-170); Estimated Glomerular Filt Rate 47 mL/min (>60); Glucose 136 mg/dL (80-110); HEMOLYSIS < 15 (0-50); Lipase 51 U/L (23-300); Potassium 4.7 mmol/L (3.4-5.1); Sodium 142 mmol/L (137-145)
[2023-08-04] MEDS: methylPREDNISolone 125 MG/2 ML VIAL IV (12:09)
[2023-08-04 12:12] LABS: NT-proBNP (BNP-Adult 18+) 5640 pg/mL (<450)
[2023-08-04 12:15] LABS: Troponin I 0.017 ng/mL (0.01-0.034)
[2023-08-04] MEDS: ALBUTEROL/IPRATROPIUM 3 ML AMPUL INH (12:15)
[2023-08-04] MEDS: FUROSEMIDE 60 MG in SODIUM CHLORIDE 0.9% 50 ML 112 MG IV (12:31)
[2023-08-04 12:38] LABS: Adenovirus Not Detected (Not Detect); B. parapertussis Not Detected (Not Detecte); Bordetella pertussis Not Detected (Not Detect); Chlamydophila pneumoniae Not Detected (Not Detect); Coronavirus 229E Not Detected (Not Detect); Coronavirus HKU1 Not Detected (Not Detect); Coronavirus NL 63 Not Detected (Not Detect); Coronavirus OC43 Not Detected (Not Detect); Human Metapneumovirus Not Detected (Not Detect); Human Rhinovirus/Enterovirus Not Detected (Not Detect); Influenza A Not Detected (Not Detect); Influenza B Not Detected (Not Detect); Mycoplasma pneumoniae Not Detected (Not Detect); Parainfluenza Virus 1 Not Detected (Not Detect); Parainfluenza Virus 2 Not Detected (Not Detect); Parainfluenza Virus 3 Not Detected (Not Detect); Parainfluenza Virus 4 Not Detected (Not Detect); Respiratory Syncytial Virus Not Detected (Not Detect); SARS- CoV-2 Not Detected (Not Detecte)
[2023-08-04] MEDS: AZITHROMYCIN 500 MG in DEXTROSE 5% IN WATER 250 ML 250 MG IV (13:16)
[2023-08-04 13:48] LABS: Creatine Kinase 70 U/L (55-170)
[2023-08-04 14:01] LABS: Troponin I 0.016 ng/mL (0.01-0.034)
== END 2023-08-04 16:21 | disposition home or self-care (01) ==
PROVIDERS: Emergency Provider Emergency Medicine; Family Provider Family Medicine; PCP Family Medicine
DX: J44.1 Chronic obstructive pulmonary disease with (acute) exacerbation (principal); R60.0 Localized edema; I48.91 Unspecified atrial fibrillation; Z99.81 Dependence on supplemental oxygen; F17.210 Nicotine dependence, cigarettes, uncomplicated
CPT/HCPCS: 36415; 71045; 80053; 82550; 83690; 83735; 83880; 84484; 85025; 85610; 85730; 87633; 93005; 94640; 96365; 96367; 96375; 99284; 99285; J1940; J2919

== ENCOUNTER 2023-08-12 10:44 | Emergency (ER) | payer MEDICARE, OTHER, SELFPAY ==
[2023-06-18 11:45] VITALS: PULSE 65; RESP 20; O2SAT 94; BMI 36.2
[2023-08-12] VITALS (34 sets, daily range): BP systolic 105–144; BP diastolic 58–93; PULSE 87–141; RESP 16–37; TEMP 36.5; O2SAT 94–100; BMI 40.6
--- NOTE | 2023-08-12 11:08 | DI.RAD.S_ITS ---
PROCEDURE: XR CHEST 1V INDICATIONS: Shortness of breath TECHNIQUE: One view of the chest was acquired. COMPARISON: [facility], CR, XR CHEST 1V, 08/04/2023, 11:51. [facility], CR, XR CHEST 1V, 04/30/2023, 4:56. FINDINGS: Surgical changes and devices: Surgical clips projecting over the mediastinum. Lungs and pleura: Small left greater than right pleural effusions. Bibasilar atelectasis versus consolidation. Mediastinum: Mediastinal contours appear normal. Heart size is normal. Bones and chest wall: No suspicious bony lesions. Overlying soft tissues appear unremarkable. IMPRESSION: Similar appearance of small left greater than right pleural effusions with adjacent atelectasis versus consolidation, greater on the left. Dictated by: Abel Castellanos M.D. on 08/12/2023 at 12:11 Approved by: Abel Castellanos M.D. on 08/12/2023 at 12:12
[2023-08-12 11:15] LABS: Add Manual Diff / Slide Review NO; Basophils Absolute Auto 0 /uL (0-100); Basophils Percent Auto 0.1 % (0-2); Eosinophils Absolute Auto 100 /uL (0-450); Eosinophils Percent Auto 0.6 % (2-4); Hematocrit 42.4 % (41-53); Hemoglobin 13.1 g/dL (13.5-17.5); Lymphocytes Absolute Auto 900 /uL (1100-4500); Lymphocytes Percent Auto 8.5 % (25-40); Mean Corpuscular HGB Conc 30.9 % (30-36); Mean Corpuscular Hemoglobin 28.4 PG (26-34); Mean Corpuscular Volume 92.1 fL (80-100); Monocytes Absolute Auto 1100 /uL (0-900); Monocytes Percent Auto 11.2 % (3-14); Neutrophils Absolute Auto 8100 /uL (1500-7000); Neutrophils Percent Auto 79.6 % (50-75); Platelet Count 191 X10^3/uL (150-400); Red Blood Cell Count 4.61 X10^6/uL (4.5-5.9); Red Cell Distribution Width 15.3 % (11.6-14.8); White Blood Cell Count 10.2 X10^3/uL (4.5-11.0)
--- NOTE | 2023-08-12 11:18 | ED_ITS ---
HPI - SOB/Dyspnea General Chief Complaint: Shortness of Breath/Dyspnea Stated Complaint: copd exaerbation Time Seen by Provider: 08/12/23 11:01 Source: patient Mode of arrival: Family Vehicle Limitations: no limitations History of Present Illness HPI Narrative: 88-year-old male with history of COPD and congestive heart failure, uses home oxygen, known atrial fibrillation, started on oral Lasix 5 days ago, has persisting shortness of breath and lower extremity edema since then, referred from clinic for exacerbation of COPD. Denies chest pains, states that he has been taking hs medications, just finshed a course of oral steroids. Feels short of breath, dialing up his home oxygen from 2L to 6L without relief. He denies change in his chronic cough. He denies nausea, vomiting, diarrhea, fevers, chills, chest arm jaw neck pain. PCP Dr. Jennings Related Data Home Medications Medication Instructions Recorded Confirmed aspirin 81 mg chewable tablet 81 mg PO DAILY 12/17/17 08/12/23 diphenhydramine HCl 25 mg capsule 50 mg PO BEDTIME 05/05/22 08/12/23 (Benadryl) Previous Rx's Medication Instructions Recorded acetaminophen 325 mg tablet 650 mg (2 x 325 mg) PO Q6H PRN 05/09/22 Fever/Mild Pain (1-3) #30 tabs multivitamin with folic acid 400 1 tab PO DAILY #30 tabs 05/09/22 mcg tablet (Tab-A-Aranza) Disabled Parking #1 ea 05/27/22 metoprolol succinate 25 mg 25 mg PO BID #180 tabs 09/22/22 tablet,extended release 24 hr albuterol sulfate 90 mcg/actuation 2 puff inhalation Q4H PRN 12/30/22 aerosol inhaler (Ventolin HFA) Shortness Of Breath #8.5 grams atorvastatin 20 mg tablet 20 mg PO ONCE PM #90 tabs 01/26/23 gabapentin 300 mg capsule 300 mg PO 3XD #90 caps 03/27/23 fluticasone 250 mcg-salmeterol 50 1 ea inhalation BID #180 ea 05/27/23 mcg/dose blistr powdr for inhalation hydrocodone 5 mg-acetaminophen 325 1 tab PO BID pain #60 tabs 06/18/23 mg tablet furosemide 40 mg tablet 40 mg PO DAILY #30 tabs 06/29/23 furosemide 40 mg tablet (Lasix) 40 mg PO DAILY #30 tabs 08/04/23 furosemide 40 mg tablet (Lasix) 40 mg PO DAILY #30 tabs 08/12/23 prednisone 20 mg tablet 40 mg (2 x 20 mg) PO DAILY 5 days 08/12/23 #10 tabs Allergies Allergy/AdvReac Type Severity Reaction Status Date / Time No Known Drug Allergies Allergy Verified 06/18/23 11:22 Review of Systems Review of Systems Narrative: as per HPI Patient History Medical History Alcohol abuse History of lung cancer Moderate aortic stenosis by prior echocardiogram Acute respiratory failure with hypoxia COPD (chronic obstructive pulmonary disease) Vision disorder Gout (~2011) Chronic back pain (~1959) History of urinary incontinence Pancreatitis (~2005) Lung cancer (~2007) Surgical History Anesthesia History of lung surgery (~03/2007) Family History Father Heart disease Grandmother Age: 83 Ovarian cancer, unspecified laterality Mother Diabetes mellitus Sister No problems noted. Social History marital status: household members: significant other and friend(s) Smoking Status: Current every day smoker alcohol intake: current substance use type: does not use Smoking Status: Current every day smoker tobacco type: cigarettes alcohol intake frequency: 3 or more drinks per day Substance Use Type: does not use Exam Narrative Exam Narrative: GENERAL: Well-developed patient, in mild distress. HEAD: Atraumatic. Normocephalic. EYES: Pupils equal round and reactive. Extraocular motions intact. No scleral icterus. No injection or drainage. ENT: Nose without bleeding, purulent drainage. Throat without erythema, tonsillar hypertrophy or exudate. Airway patent. Wears nasal cannula oxygen NECK: Trachea midline. Non tender CARDIOVASCULAR: Regular rate and rhythm without murmurs, gallops, or rubs. RESPIRATORY: Clear to auscultation. Breath sounds equal bilaterally. No wheezes, rales, or rhonchi. Some intercostal retractions, bibasilar crackles, slight wheeze and expiratory, however is able to speak in full sentences GASTROINTESTINAL: Abdomen soft, non-tender, nondistended. EXTREMITIES: No edema or joint tenderness. BACK: Nontender without deformity or crepitance. No flank tenderness. NEURO: AOx3. SKIN: No rash or erythema of visible areas Initial Vital Signs Initial Vital Signs: Vital Signs Pulse Oximetry 96 08/12/23 10:52 Course Orders Ordered: ED Orders 08/12/23 15:34 EKG-12 Lead Routine Discontinued Medications Albuterol/Ipratropium (Albuterol/Ipratropium 3 Ml Ampul) 3 ml INH NOW ONE Stop: 08/12/23 11:02 Last Admin: 08/12/23 11:23 Dose: 3 ml Documented By: JEAN Albuterol/Ipratropium (Albuterol/Ipratropium 3 Ml Ampul) 6 ml INH NOW ONE Stop: 08/12/23 11:18 Last Admin: 08/12/23 11:23 Dose: 6 ml Documented By: JEAN Diltiazem HCl (Diltiazem 25 Mg/5 Ml Sdv) 20 mg IV NOW ONE Stop: 08/12/23 15:19 Last Admin: 08/12/23 15:29 Dose: 20 mg Documented By: EMBER Furosemide (Furosemide 40 Mg/4 Ml Vial) 40 mg IV NOW ONE Stop: 08/12/23 14:29 Last Admin: 08/12/23 14:41 Dose: 40 mg Documented By: EMBER Methylprednisolone (Methylprednisolone 125 Mg/2 Ml Vial) 125 mg IV NOW ONE Stop: 08/12/23 11:02 Last Admin: 08/12/23 12:08 Dose: 125 mg Documented By: EMBER Vital Signs Vital signs: Vital Signs - 8 hr 08/12/23 14:30 08/12/23 14:30 08/12/23 15:00 Pulse Rate 121 H Respiratory Rate 22 Blood Pressure 130/93 H 117/77 Pulse Oximetry 99 08/12/23 15:00 08/12/23 15:29 08/12/23 15:30 Pulse Rate 132 H 141 H 127 H Respiratory Rate 22 23 Blood Pressure 128/83 Pulse Oximetry 97 97 08/12/23 15:31 08/12/23 15:31 08/12/23 15:35 Pulse Rate 117 H Respiratory Rate 35 H Blood Pressure 128/83 135/79 Pulse Oximetry 96 08/12/23 15:35 08/12/23 15:40 08/12/23 15:40 Pulse Rate 124 H 100 H Respiratory Rate 23 26 H Blood Pressure 124/77 Pulse Oximetry 98 95 08/12/23 15:45 08/12/23 15:45 08/12/23 15:50 Pulse Rate 91 H 90 Respiratory Rate 19 19 Blood Pressure 108/71 Pulse Oximetry 94 96 08/12/23 15:50 08/12/23 15:55 08/12/23 15:55 Pulse Rate 87 Respiratory Rate 22 Blood Pressure 125/72 110/69 Pulse Oximetry 97 08/12/23 15:59 08/12/23 16:00 08/12/23 16:00 Pulse Rate 88 89 Respiratory Rate 26 H 20 Blood Pressure 127/58 L Pulse Oximetry 97 96 08/12/23 16:05 08/12/23 16:05 08/12/23 16:10 Pulse Rate 89 Respiratory Rate 18 Blood Pressure 122/78 139/70 Pulse Oximetry 97 08/12/23 16:10 08/12/23 16:15 08/12/23 16:15 Pulse Rate 87 93 H Respiratory Rate 21 27 H Blood Pressure 144/73 H Pulse Oximetry 97 97 08/12/23 16:20 08/12/23 16:20 08/12/23 16:25 Pulse Rate 94 H Respiratory Rate 24 Blood Pressure 143/77 H 130/88 Pulse Oximetry 96 08/12/23 16:25 08/12/23 16:30 08/12/23 16:31 Pulse Rate 92 H 96 H Respiratory Rate 21 27 H Blood Pressure 124/92 H Pulse Oximetry 97 97 08/12/23 16:31 08/12/23 16:35 08/12/23 16:35 Pulse Rate 92 H 95 H Respiratory Rate 23 21 Blood Pressure 127/87 Pulse Oximetry 98 97 08/12/23 16:40 08/12/23 16:40 08/12/23 16:45 Pulse Rate 93 H Respiratory Rate 23 Blood Pressure 116/80 105/76 Pulse Oximetry 97 08/12/23 16:45 Pulse Rate 98 H Respiratory Rate 26 H Blood Pressure Pulse Oximetry 96 MDM - SOB/Dyspnea Lab Data Attestation: I reviewed the patient's lab results. 08/12/23 10:57 08/12/23 10:57 Labs: Lab Results 08/12/23 Range/Units 10:57 WBC 10.2 (4.5-11.0) X10^3/uL RBC 4.61 (4.5-5.9) X10^6/uL Hgb 13.1 L (13.5-17.5) g/dL Hct 42.4 (41-53) % MCV 92.1 (80-100) fL MCH 28.4 (26-34) PG MCHC 30.9 (30-36) % RDW 15.3 H (11.6-14.8) % Plt Count 191 (150-400) X10^3/uL Neut % (Auto) 79.6 H (50-75) % Lymph % (Auto) 8.5 L (25-40) % [place] % (Auto) 11.2 (3-14) % Eos % (Auto) 0.6 L (2-4) % Baso % (Auto) 0.1 (0-2) % Neut # (Auto) 8100 H (4638-2041) /uL Lymph # (Auto) 900 L (4418-7415) /uL [place] # (Auto) 1100 H (0-900) /uL Eos # (Auto) 100 (0-450) /uL Baso # (Auto) 0 (0-100) /uL PT 13.0 H (9.4-12.5) SECONDS INR 1.1 (0.9-1.3) Sodium 144 (137-145) mmol/L Potassium 4.8 (3.4-5.1) mmol/L Chloride 104 (98-107) mmol/L Carbon Dioxide 33 H (22-32) mmol/L BUN 74 H (9-20) mg/dL Creatinine 1.73 H (0.66-1.25) mg/dL Estimated GFR 38 L (>60) mL/min BUN/Creatinine Ratio 42.8 H (6-22) Glucose 108 (80-110) mg/dL Lactate 1.7 (0.7-2.1) mmol/L Calcium 9.1 (8.4-10.2) mg/dL Total Bilirubin 0.9 (0.2-1.3) mg/dL AST 46 (17-59) IU/L ALT 81 H (<50) IU/L Alkaline Phosphatase 78 (38-126) U/L Troponin I 0.033 (0.01-0.034) ng/mL NT-Pro-B Natriuret Pep 8620 H (<450) pg/mL Total Protein 6.6 (6.3-8.2) g/dL Albumin 3.9 (3.5-5.0) g/dL Globulin 2.7 (1.7-4.1) g/dL Albumin/Globulin Ratio 1.4 (1.0-2.8) Imaging Data Chest x-ray: Radiologist's Impression: [address] [address] XRay Report Signed Patient: Todd Angel MR#: [id number] : 1935 Acct:[id number] Age/Sex: 88 / M Date of Service: 08/12/23 Loc: ED Accession Number: [id number] Procedure: XR chest 1V Ordering Provider: Ben Crook MD PROCEDURE: XR CHEST 1V INDICATIONS: Shortness of breath TECHNIQUE: One view of the chest was acquired. COMPARISON: [facility], CR, XR CHEST 1V, 08/04/2023, 11:51. [facility], CR, XR CHEST 1V, 04/30/2023, 4:56. FINDINGS: Surgical changes and devices: Surgical clips projecting over the mediastinum. Lungs and pleura: Small left greater than right pleural effusions. Bibasilar atelectasis versus consolidation. Mediastinum: Mediastinal contours appear normal. Heart size is normal. Bones and chest wall: No suspicious bony lesions. Overlying soft tissues appear unremarkable. IMPRESSION: Similar appearance of small left greater than right pleural effusions with adjacent atelectasis versus consolidation, greater on the left. Dictated by: bAel Castellanos M.D. on 08/12/2023 at 12:11 Approved by: Abel Castellanos M.D. on 08/12/2023 at 12:12 ECG Data Attestation: I personally reviewed and interpreted this ECG as follows: Interpretation: Atrial fibrillation with ventricular response rate 103, QRS 90, QTC 448. No obvious ST segment elevation or depression changes. MDM Narrative Medical decision making narrative: 88-year-old male with history of COPD, CHF, atrial fibrillation, with increased shortness of breath after recent course of oral prednisone, wheezing with crackles on exam, some bilateral lower extremity edema. Screening EKG showed atrial fibrillation which is known, with ventricular response 100 noted. No obvious ischemic changes. Troponin negative. CXR no change from 08/04/23 per radiology report. SVN Atrovent given x3 doses, IV Solu-Medrol steroid given. IV Lasix given, some diuresis noted. He was initially wanting to leave at that point, however he did have increased ventricular response AFib 140s, is willing to stay for IV diltiazem dose but stated that he will be leaving my 5:00 p.m. no matter what, at bedside is not in disagreement. Previous recommendations for admission declined. Further treatment in the emergency department as patient will allow. IV diltiazem bolus for better ventricular response rate control for now. Patient better rate controlled after IV Diltiazem bolus, did not want further treatment, left ED with his , will follow-up with his regular provider. Critical Care Time Critical Care Time Critical Care Time: Yes Total Critical Care Time: 31 Attestation: The high probability of a clinically significant, sudden or life threatening deterioration of the [cardiopulmonary] system(s) required my full and direct attention, intervention and personal management. The aggregate critical care time was [31] minutes. This time is in addition to time spent performing reported procedures but includes the following: [x] Data Review and interpretation [x] Patient assessment and monitoring of vital signs [x] Documentation [x] Medication orders and management Discharge Plan Departure Patient Disposition: Home Clinical Impression: Dyspnea, Congestive heart failure, COPD exacerbation, Atrial fibrillation with rapid ventricular response Instructions: DI for Heart Failure, DI for Chronic Obstructive Pulmonary Disease Activity Restrictions/Additional Instructions: Increasing shortness of breath, history of COPD, history of congestive heart failure, taking oral Lasix at home, recently completed a course of oral prednisone, increasing shortness of breath, wheezing and crackles on exam, some swelling to the lower extremities. BNP blood test elevated, suspicious for component of congestive heart failure as cause of symptoms, IV Lasix dose given, refill of oral Lasix dose given. IV Solu-Medrol steroid was given, restart prednisone for the next few days pulse. On 2-3 L oxygen your oxygen levels in the emergency department were quite good, it can be dangerous to use 6 L of oxygen at home. For now try to use 2-3 L oxygen at home. Your atrial fibrillation was associated with increased heart rate later in your ED course, IV diltiazem was given, did not want further treatment of this, you did not want admission for this. Further follow up with your regular doctor as an outpatient. Continue taking your metoprolol medication. He seems to hear enough in your symptoms to consider admission, you improved during your emergency department treatment, and wanted to go home, went home with family. Follow up with your regular doctor in the next couple of days to recheck your lung and symptoms. Return to this/nearest emergency department for any change worsening symptoms or any concerns prior Prescriptions: New prednisone 20 mg tablet 40 mg PO DAILY 5 Days Qty: 10 0RF furosemide [Lasix] 40 mg tablet 40 mg PO DAILY Qty: 30 0RF No Action (DME) Disabled Parking See Rx Instructions .ROUTE .MEDSUPPLY Qty: 1 0RF Rx Instructions: I find this patient to be medically disabled and qualified for Disabled Parking as indicated, and signed, on the Accompanying Disabled Parking Application for Individuals metoprolol succinate 25 mg tablet extended release 24 hr 25 mg PO BID Qty: 180 3RF albuterol sulfate [Ventolin HFA] 90 mcg/actuation HFA aerosol inhaler 2 puff INHALATION Q4H PRN (Reason: Shortness Of Breath) Qty: 8.5 3RF Rx Instructions: 2 puffs every 4-6 hours as needed for shortness of breath - use with spacer atorvastatin 20 mg tablet 20 mg PO ONCE PM Qty: 90 3RF gabapentin 300 mg capsule 300 mg PO 3XD Qty: 90 3RF fluticasone propion-salmeterol 250-50 mcg/dose blister with device 1 ea inhalation BID Qty: 180 3RF furosemide 40 mg tablet 40 mg PO DAILY Qty: 30 3RF aspirin 81 mg tablet,chewable 81 mg PO DAILY hydrocodone-acetaminophen 5-325 mg tablet 1 tab PO BID Qty: 60 0RF Rx Instructions: Take one tab 2 times daily for hip and back pain. Avoid alcohol when using this medication diphenhydramine HCl [Benadryl] 25 mg Capsule 50 mg PO BEDTIME acetaminophen 325 mg Tablet 650 mg PO Q6H PRN (Reason: Fever/Mild Pain (1-3)) Qty: 30 0RF multivitamin with folic acid [Tab-A-Aranza] 400 mcg Tablet 1 tab PO DAILY Qty: 30 0RF furosemide [Lasix] 40 mg tablet 40 mg PO DAILY Qty: 30 0RF Referrals: Jeffrey Jennings MD [Primary Care Provider] - Stand Alone Forms: Patient Portal/API
[2023-08-12 11:19] LABS: INR 1.1 (0.9-1.3)
[2023-08-12 11:23] LABS: Alanine Aminotransferase 81 IU/L (<50); Albumin 3.9 g/dL (3.5-5.0); Albumin Globulin Ratio 1.4 (1.0-2.8); Alkaline Phosphatase 78 U/L (38-126); Aspartate Aminotransferase 46 IU/L (17-59); BUN Creatinine Ratio 42.8 (6-22); Bilirubin Total 0.9 mg/dL (0.2-1.3); Blood Urea Nitrogen 74 mg/dL (9-20); Calcium 9.1 mg/dL (8.4-10.2); Carbon Dioxide 33 mmol/L (22-32); Chloride 104 mmol/L (98-107); Estimated Glomerular Filt Rate 38 mL/min (>60); Globulin 2.7 g/dL (1.7-4.1); Glucose 108 mg/dL (80-110); HEMOLYSIS 26 (0-50); Lactate (Lactic Acid) 1.7 mmol/L (0.7-2.1); Potassium 4.8 mmol/L (3.4-5.1); Sodium 144 mmol/L (137-145); Total Protein 6.6 g/dL (6.3-8.2)
[2023-08-12] MEDS: ALBUTEROL/IPRATROPIUM 3 ML AMPUL INH (11:23)
[2023-08-12] MEDS: ALBUTEROL/IPRATROPIUM 3 ML AMPUL 6 ML INH (11:23)
[2023-08-12 11:34] LABS: NT-proBNP (BNP-Adult 18+) 8620 pg/mL (<450); Troponin I 0.033 ng/mL (0.01-0.034)
[2023-08-12] MEDS: methylPREDNISolone 125 MG/2 ML VIAL IV (12:08)
[2023-08-12] MEDS: FUROSEMIDE 40 MG/4 ML VIAL IV (14:41)
[2023-08-12] MEDS: dilTIAZem 25 MG/5 ML SDV 20 MG IV (15:29)
--- NOTE | 2023-08-12 16:05 | PC.NURSE ---
went into room to discharge patient and noticed pt's heart rate increase to 147. continued to monitor and heart was in AFib jumping from 90s to 140s. pt states he does not take any medication for this but was told last time he was in the ER that he had this. informed provider and spoke with patient about how long he is willing to stay. he states he will give us till 1730 then he has to be home for the ball game. informed provider and order for dilt was given.
== END 2023-08-12 17:21 | disposition home or self-care (01) ==
PROVIDERS: Emergency Provider Emergency Medicine; Family Provider Family Medicine; PCP Family Medicine
DX: I48.20 Chronic atrial fibrillation, unspecified (principal); Z79.01 Long term (current) use of anticoagulants; J44.1 Chronic obstructive pulmonary disease with (acute) exacerbation; I50.9 Heart failure, unspecified; R60.9 Edema, unspecified; R06.00 Dyspnea, unspecified
CPT/HCPCS: 36415; 71045; 80053; 83605; 83880; 84484; 85025; 85610; 93005; 94640; 96374; 96375; 99284; 99285; J1940; J2919

== ENCOUNTER → 2023-08-18 16:33 | Outpatient (CLI) | payer MEDICARE, OTHER, SELFPAY ==
[2023-06-18 11:45] VITALS: PULSE 65; RESP 20; O2SAT 94; BMI 36.2
[2023-08-18 18:04] LABS: BUN Creatinine Ratio 46.5 (6-22); Blood Urea Nitrogen 74 mg/dL (9-20); Calcium 9.5 mg/dL (8.4-10.2); Carbon Dioxide 35 mmol/L (22-32); Chloride 102 mmol/L (98-107); Estimated Glomerular Filt Rate 42 mL/min (>60); Glucose 123 mg/dL (80-110); HEMOLYSIS < 15 (0-50); Potassium 4.1 mmol/L (3.4-5.1); Sodium 144 mmol/L (137-145)
== END ==
LOC: LAB 16:36
PROVIDERS: Physician Assistant; Family Provider Family Medicine; PCP Family Medicine; Referring Provider Family Medicine; Visit Provider Family Medicine
DX: I50.9 Heart failure, unspecified (principal); N18.30 Chronic kidney disease, stage 3 unspecified
CPT/HCPCS: 36415; 80048